=== PATIENT | female | born 1965 | race Caucasian/White ===

== ENCOUNTER 2016-11-06 10:04 | Observation (INO) | payer OTHER ==
[2016-11-03 11:06] VITALS: BMI 29.0
--- NOTE | 2016-11-03 12:02 | PAT Medication Instructions ---
Service Date Nov 03, 2016. Current Home Medication List Alprazolam (Xanax), 1 MG PO TID Aspirin (Aspirin Ec), 81 MG PO QAM Ciprofloxacin Tab (Cipro), 1,000 MG PO QAM Famotidine (Pepcid), 20 MG PO HS Insulin Glargine (Toujeo Solostar), 32 UNITS SC BID Insulin Lispro (Human) (Humalog), 1 DOSE SC ACHS Isosorbide Mononitrate (Imdur), 60 MG PO BID Levothyroxine Sodium (Synthroid), 112 MCG PO QAM Magnesium Citrate (Magnesium Citrate), 1 DOSE PO DAILY PRN for PRN Ondansetron Hcl (Zofran), 4-8 MG PO Q6H PRN for Nausea Oxycodone Hcl (Oxycodone Hcl), 1 TAB PO QID PRN for Pain Ranolazine (Ranexa), 1,000 MG PO BID Sennosides-Docusate Sodium (Stool Softener), 2 TAB PO HS PRN for Constipation Sulfa/Trimethoprim (Bactrim Ds 800MG/160MG), 1 TAB PO BID Medication Instructions For Your Scheduled Surgery - Hold the following medications the morning of surgery: Magnesium Citrate (Magnesium Citrate), 1 DOSE PO DAILY PRN for PRN Sulfa/Trimethoprim (Bactrim Ds 800MG/160MG), 1 TAB PO BID Ciprofloxacin Tab (Cipro), 1,000 MG PO QAM Insulin Lispro (Human) (Humalog), 1 DOSE SC ACHS - Take the following medications the morning of surgery with a sip of water: Ranolazine (Ranexa), 1,000 MG PO BID Oxycodone Hcl (Oxycodone Hcl), 1 TAB PO QID PRN for Pain (can take up to four hours prior to surgery if needed). Ondansetron Hcl (Zofran), 4-8 MG PO Q6H PRN for Nausea (only if needed) Levothyroxine Sodium (Synthroid), 112 MCG PO QAM Isosorbide Mononitrate (Imdur), 60 MG PO BID Aspirin (Aspirin Ec), 81 MG PO QAM Alprazolam (Xanax), 1 MG PO TID - Take the following medications as scheduled the night before surgery: Sennosides-Docusate Sodium (Stool Softener), 2 TAB PO HS PRN for Constipation Ranolazine (Ranexa), 1,000 MG PO BID Oxycodone Hcl (Oxycodone Hcl), 1 TAB PO QID PRN for Pain Sulfa/Trimethoprim (Bactrim Ds 800MG/160MG), 1 TAB PO BID Isosorbide Mononitrate (Imdur), 60 MG PO BID Insulin Lispro (Human) (Humalog), 1 DOSE SC ACHS Insulin Glargine (Toujeo Solostar), 32 UNITS SC BID Alprazolam (Xanax), 1 MG PO TID Famotidine (Pepcid), 20 MG PO HS - For Insulin Dependent Diabetic patients: Test blood sugar A.M. of surgery. - If blood sugar is greater than 150, take half of your Toujeo dose of: ( 16 units) - If blood sugar is less than 150, do not take any: Toujeo If you have any questions please call us at [phone] or [phone] ( [facility]) or [phone]
[2016-11-03 12:51] LABS: URINE APPEARANCE CLEAR (CLEAR); URINE BILIRUBIN NEG (NEG); URINE COLOR YELLOW; URINE NITRITE NEG (NEG); URINE PH 7.5 (4.5-7.5); URINE SPECIFIC GRAVITY 1.042 (1.000-1.030); UROBILINOGEN NEG (NEG)
[2016-11-03 12:55] LABS: MANUAL MICROSCOPIC REQUIRED? NO; REVIEW REQ? NO
[2016-11-03 13:08] LABS: INR 0.9 (0.9-1.1); PROTHROMBIN TIME (PATIENT) 10.1 SECONDS (9.0-12.0)
[2016-11-03 13:25] LABS: BUN/CREATININE RATIO 25.4 (10-20); CREATININE 0.67 mg/dl (0.60-1.20); POTASSIUM 4.1 mmol/L (3.5-5.1)
[2016-11-03 13:45] LABS: BETA-HYDROXYBUTYRATE 3.78 mg/dL (0.2-2.81)
[~2016-11-06] VITALS: Ht 172.7 cm; Wt 88.1 kg
[2016-11-06] VITALS (9 sets, daily range): BP systolic 115–149; BP diastolic 59–80; PULSE 68–83; TEMP 36.4–37.1; O2SAT 95–100; BMI 29.0; BMI 29.5
--- NOTE | 2016-11-06 00:14 | HISTORY & PHYSICAL EXAMINATION ---
DATE OF ADMISSION: 11/06/2016 SUBJECTIVE/CHIEF COMPLAINT: Left distal leg ulceration. HISTORY OF PRESENT ILLNESS: This is a patient who has a history of bilateral ddwdq-mzx-lolu amputations. She has been fitted for her prosthesis for bilateral lower extremities; however, on the left side, she started having an ulceration form and some dehiscence of the BKA flap. She is currently being set up for revision of the amputation and debridement of the ulcer. PAST MEDICAL HISTORY: Diabetes treated with insulin, hypertension, history of pulmonary embolism, history of sepsis, hypercholesterolemia, hypothyroidism, coronary artery disease with cardiac stents x3, peripheral artery disease, diabetic neuropathy and anxiety. CURRENT MEDICATIONS: Lantus, Coreg, aspirin, vitamin C, alprazolam, Plavix, Colace, Ranexa, Tirosint, Neurontin, Tricor, Dexilant, vitamin D, Zofran and Bactrim DS. ALLERGIES: SPIRONOLACTONE, VANCOMYCIN AND BUTORPHANOL. SOCIAL HISTORY: The patient denies alcohol and tobacco use. PAST SURGICAL HISTORY: Bilateral nbjgq-kkn-paft amputations, hysterectomy, cholecystectomy, small-bowel obstruction surgery, and coronary artery stents. FAMILY HISTORY: Noncontributory. OBJECTIVE/PHYSICAL EXAMINATION: GENERAL: The patient is alert and oriented x3. She is in no acute distress. She is a well-dressed, well-nourished 51-year-old female. Her affect is appropriate. CARDIOVASCULAR: Heart has a regular rhythm and rate without murmurs. LUNGS: Clear to auscultation bilateral. Cap refill is less than 2 seconds at lcwix-sqw-dheu amputation sites. LYMPHATIC: No evidence of any swollen lymph nodes. MUSCULOSKELETAL: The patient is weightbearing on bilateral lower extremities with oqkjx-utq-kdyu prosthesis. Upon inspection of the left zllcb-exw-ihcc amputation site, there is an ulceration noted at the surgical flap, there is mild erythema and mild drainage noted. NEUROLOGIC: Sensation normal and intact distally at myaqq-spn-atby amputation sites. ASSESSMENT/DIAGNOSIS: Ulceration of left cngpx-yxo-tpyx amputation flap. PLAN: Above assessment was discussed with the patient. At this time, it was recommended the patient undergo a left lower extremity revision of vhika-qtj-lgwa amputation with debridement of ulceration and application of platelet-rich plasma. All potential risks, benefits, complications, alternatives and rehab have been discussed with the patient. At this time, she wishes to proceed with the surgery as indicated and she will be scheduled for the surgery on 11/06/2016. SRINATH
[~2016-11-06 10:04] MED LIST: ALPR1TAB3 PO; ASPI81TA28 PO; BUPIVACAINE/EPINEPHRINE 0.25% 1:200,000 30 ML VIAL ONE; BUPIVACAINE/EPINEPHRINE 0.5% MPF 1:200,000 30 ML VIAL ONE; CEFAZOLIN 2000 MG/60 ML D5W IV SCH; CIPR1TAB11 PO; DEXAMETHASONE SOD INJ 4 MG/ML VIAL ONE; FAMO20TA11 PO; FENTANYL CITRATE INJ 50 MCG/1 ML 2 ML VIAL ONE; INSU1.2I SC; INSU100I SC; ISOS30TA13 PO; LACTATED RINGER'S 1000ML IV SCH; LEVO112T2 PO; MAGN1SOL7 PO; MIDAZOLAM HCL 1 MG/ML 2ML VIAL ONE; ONDA4TAB46 PO; OXYC-164 PO; RANO1000 PO; SCOPOLAMINE 1.5 MG TDSY TD SCH; SENNTAB23 PO; SULF800T23 PO
--- NOTE | 2016-11-06 11:32 | History & Physical Bridge Note ---
H&P Re-Evaluation Bridge Note: I have examined the patient, reviewed the History & Physical and in the interval since the performance of the History & Physical I have noted the following changes of clinical significance: No changes noted
[2016-11-06] MEDS ORDERED: CEFAZOLIN IV 2,000 MG/60 ML D5W IV ONE (11:36)
[2016-11-06] MEDS ORDERED: NovoLIN-R INSULIN PER UNIT CHARGE ONE (12:28)
[2016-11-06] MEDS ORDERED: ATROPINE SULFATE 0.1 MG/ML 5ML SYR IV PRN (13:00)
[2016-11-06] MEDS ORDERED: ONDANSETRON INJ 2 MG/ML 2 ML VIAL IV PRN (13:00)
[2016-11-06] MEDS ORDERED: FENTANYL CITRATE INJ 50 MCG/1 ML 2 ML VIAL IV PRN (13:00)
[2016-11-06] MEDS ORDERED: EpHEDrine SULFATE INJ 50 MG/ML AMP IV PRN (13:00)
[2016-11-06] MEDS ORDERED: ONDANSETRON INJ 2 MG/ML 2 ML VIAL ONE (13:10)
[2016-11-06] MEDS ORDERED: METOCLOPRAMIDE HCL INJ 5 MG/ML 2 ML VIAL ONE (13:10)
[2016-11-06] MEDS ORDERED: PROPOFOL IV EMULSION 10 MG/ML 20 ML VIAL IV ONE (13:10)
[2016-11-06] MEDS ORDERED: LIDOCAINE HCL 2% 2 ML VIAL (20MG/ML) ONE (13:10)
[2016-11-06] MEDS ORDERED: BACITRACIN 50,000 UNITS IR ONE (14:11)
[2016-11-06] MEDS ORDERED: CALCIUM CHLORIDE 10% XX ONE (14:12)
[2016-11-06] MEDS ORDERED: THROMBIN 5,000 UNITS (BOVINE) TOP ONE (14:13)
[2016-11-06] MEDS ORDERED: FENTANYL CITRATE INJ 50 MCG/1 ML 2 ML VIAL ONE (14:33)
--- NOTE | 2016-11-06 14:58 | [facility] Post Operative Brief Note ---
Immediate Operative Summary Operative Date Nov 06, 2016. Pre-Operative Diagnosis Ulceration of Left Mxbsr-yps-Hzrz Amputation Flap, Painful Left Below the Knee Amputation Post-Operative Diagnosis Ulceration of Left Qjtpz-csz-Cxlr Amputation Flap, Painful Left Below the Knee Amputation Procedure(s) Performed Left Tibia: Revision Left Below the Knee Amputation, Debridement Ulcer and Application of Plasma Rich Protein Surgeon Dr. Ramos Platform Supervisor Surgeon(s) JESSE Thakkar Estimated Blood Loss 20 ml Findings See dict Specimens Culture--Left leg Amputated Stump--sent for routine culture and sensitivity and anaerobes--sent to lab at 1340 Drains HV x 1 Anesthesia GLMA Complication(s) None Disposition Recovery Room / PACU
[2016-11-06] MEDS ORDERED: SOD PHOSPHATE/SOD BIPHOSPHATE ENEMA 132 ML BTL PR PRN (15:15)
[2016-11-06] MEDS ORDERED: ZOLPIDEM TARTRATE 5 MG TAB PO PRN (15:15)
[2016-11-06] MEDS ORDERED: DOCUSATE SODIUM/SENNA 50/8.6MG TAB PO PRN (15:15)
[2016-11-06] MEDS ORDERED: ONDANSETRON 4 MG TAB PO PRN (15:15)
[2016-11-06] MEDS ORDERED: MAGNESIUM HYDROXIDE SUSP 30 ML UDC PO PRN (15:15)
[2016-11-06] MEDS ORDERED: BISACODYL 10 MG SUPP PR PRN (15:15)
[2016-11-06] MEDS ORDERED: ALUMINUM/MAGNESIUM/SIMETH (MAALOX MAX) 30 ML UDC PO PRN (15:15)
--- NOTE | 2016-11-06 15:34 | OPERATIVE REPORT ---
DATE OF OPERATION: 11/06/2016 PREOPERATIVE DIAGNOSES: 1. Left below knee amputation, chronic ulceration. 2. Painful left below knee amputation with dehiscence. POSTOPERATIVE DIAGNOSIS: Same. PROCEDURE: 1. Revision below knee amputation, left lower extremity. 2. Debridement ulcer. 3. Application platelet rich plasma concentrate. SURGEON: Dr. Ramos. RETAIL PRESENTATION SPECIALIST: Dean Silva PA-C who was present for patient positioning, sterile prep and drape, management of retractors and instruments. He was present through the critical portions of the case including wound closure, application of sterile dressing and transport of the patient to recovery. ANESTHESIA: General LMA. SPECIMENS: Aerobic, anaerobic, Gram stain. DRAINS: Hemovac x1. COMPLICATIONS: None. BLOOD LOSS: 20 mL. PERTINENT HISTORY: This is a 51-year-old female who had prior left below knee amputation due to chronic osteomyelitis of the left foot. She had initially done well; however, after attempting to use her prosthesis developed an ulceration which did not resolve after a period of approximately 5 months. She attempted multiple conservative managements and failed all of them. The patient was then scheduled for revision below knee amputation. All potential risks, benefits, complications, alternatives, rehab, potential for incomplete relief of symptoms, need for further surgery, DVT, PE, , persistent pain, swelling, scarring, weakness, neurovascular injury, wound complications, need for further surgery discussed with the patient. The patient decided to proceed with the procedure as indicated. OPERATION AND FINDINGS: PROCEDURE: The patient was taken to the operative suite and placed supine on the operating table. I reviewed consent and identification of proper operative site. The patient was anesthetized, LMA was placed. Tourniquet was placed high on the left thigh over cast padding. Left lower extremity was then sterilely prepped and draped in usual fashion, elevated, and exsanguinated with an Esmarch bandage, elevated and the tourniquet was inflated to 300 mmHg. There was no exsanguination performed. Next, a 15 blade scalpel was used to make an incision site of previous incision. There was an elliptical area of ulceration distal tip of the below knee amputation, it was then excised entirely with a 15 blade scalpel. Full thickness skin flaps were developed proximally and distally. Next, the fascia was then incised anteriorly. The sutures which were placed previously were identified and then removed in their entirety. Next, the incision was then deepened to the level of the distal tibia. A small fluid collection in the distal aspect of the tibia. There was no obvious purulence, no foul odor, no other drainage. This was cultured, aerobic, anaerobic, Gram stain were sent for specimen. Next, the flap was then fully incised and mobilized followed by isolation of the distal tibia. Appropriate retractors were placed and then the distal tibia was then excised approximately additional 1 cm proximally and then the tip was then bevelled with a sagittal saw. Next, a rasp and rongeur used to smooth and contour the distal tibia. Next, the distal fibula was then exposed, carful retraction was applied around the fibula and the fibula was then resected level approximately 1 cm proximal to distal tip of the tibia. Next, all wounds were copiously irrigated with pulsatile lavage with bacitracin approximately 3 liters. Next, platelet rich plasma concentrate was derived from the patient's venous blood and spun in a centrifuge. After final lavage was completed, new top sheet and gloves were obtained and then bone tunnels x6 were drilled in distal aspect of the tibia with a 2.5 mm drill bit. Using a [employer] suture passer, the sutures were then shuttled through the bone to perform a Myotenodesis and to attach the flap to the distal aspect of the tibia to ensure appropriate soft tissue coverage over the stump. Next, the platelet rich plasma concentrate was injected around the soft tissues and the distal aspect of the tibia after bone wax was applied into the cut bony stump. Next, #2 Ultrabraid sutures were passed through the bone tunnels and into the flap to secure it followed by closure with buried suture knots. Next, a buried interrupted #1 Vicryl was used to close the fascia and the dermis was closed using buried interrupted 3-0 Vicryl, skin was closed using 3-0 nylon. A 10 [place]ian Hemovac drain was placed in the distal aspect of the wound exiting anterolaterally. Next, the sterile compressive dressing was applied overwrapped with an Gabe wrap. Tourniquet was released. The patient was awakened and taken to recovery in stable condition. I attest to the content of the Intraoperative Record and any orders documented therein. Any exceptions are noted below. SRINATH
--- NOTE | 2016-11-06 15:37 | Anesthesiology Progress Note ---
Anesthesia Post Op Note Date & Time Nov 06, 2016 at 15:36 Vital Signs Pain Intensity: 0 Vital Signs Past 12 Hours Date Time Temp Pulse Resp B/P Pulse Ox O2 Delivery O2 Flow Rate FiO2 11/06/16 15:25 80 20 121/67 100 Mask 10 11/06/16 15:15 82 16 128/72 100 Mask 10 11/06/16 15:06 36.7 87 16 140/76 100 Mask 10 Manual 11/06/16 11:05 36.9 79 20 149/80 95 Room Air Notes Mental Status: alert / awake / arousable, participated in evaluation Pt Amnestic to Procedure: Yes Nausea / Vomiting: adequately controlled Pain: adequately controlled Airway Patency, RR, SpO2: stable & adequate BP & HR: stable & adequate Hydration State: stable & adequate Anesthetic Complications: no major complications apparent Blocks working well in pacu
[2016-11-06] MEDS: CHECK SCOPOLAMINE PATCH PLACEMENT SCH (16:00)
[2016-11-06] MEDS ORDERED: IV FLUIDS COMPLETED PRN (16:45)
[2016-11-06] MEDS: KETOROLAC TROMETHAMINE 30 MG/ML VIAL IV. SCH (17:36)
[2016-11-06] MEDS: POTASSIUM CHLORIDE INJ 10 MEQ in SODIUM CHLORIDE 0.9% 1000ML 1,000 ML IV SCH (17:36)
--- NOTE | 2016-11-06 18:27 | Medical Consult ---
Consultation Date of Consultation: Nov 06, 2016. Attending Physician: Dom Ramos D.O. Reason for Consultation: Medical management History of Present Illness This is a 51 yo F with PMHx with DM , HT, previous PE, hyperlipidemia, hypothyroidism, CAD s/p cardiac stent x 3, peripheral artery disease, diabetic neuropathy and anxiety. She is s/p revision of Left BKA secondary to chronic ulceration and previous left below knee amputation with dehiscence. The patient was seen and examined at bedside, her is present in the room. Pt reports pain is well controlled currently. She states her nausea is worse right now, and that she did eat ~ 30% of her dinner because she thought this would improve nausea, but didn't. At home she uses zofran on a daily basis , and that she also has phenergan which works better than zofran, so is requesting it to be available. Past Medical/Surgical History 1. HTN 2. DM 3. Pulmonary embolism, resolved 4. Hyperlipidemia, 5. Hypothyroidism 6. CAD s/p cardiac stent x 3 7. PAD 8. Anxiety Family History Diabetes mellitus Social History Smoking Status: Never Smoker Drug Use: none Marital Status: Housing Status: lives with family Occupation Status: disabled Allergies Coded Allergies: Butorphanol (Verified Allergy, Severe, SHORTNESS OF BREATH, 11/06/16) Spironolactone (Verified Allergy, Mild, RASH, 11/06/16) Atorvastatin (Verified Allergy, Unknown, RASH, 11/06/16) Fenofibrate (Verified Allergy, Unknown, RASH, 11/06/16) Vancomycin (Verified Adverse Reaction, Mild, RASH-DEVYN SYNDROME, 11/06/16) red man syndrome Current Inpatient Medications Current Inpatient Medications Medications (Trade) Dose Ordered Sig/Ochoa Route Start Time Stop Time Status Last Admin Dose Admin Lactated Ringer's (Lr 1000ml) 1,000 ml @ 15 mls/hr Q24H IV 11/06/16 06:00 11/07/16 05:59 Miscellaneous (Remove Transderm-Scop Patch) 1 ea Q72H N/A 11/08/16 06:00 11/08/16 06:01 Miscellaneous Information (Check Scopolamine Patch Placement) 1 ea QS N/A 11/06/16 16:00 11/08/16 05:59 11/06/16 16:00 1 EA Fentanyl Citrate (Fentanyl Inj) 50 mcg Q5M PRN IV 11/06/16 13:00 11/06/16 18:00 Ondansetron HCl (Zofran Inj) 4 mg ONE PRN IV 11/06/16 13:00 11/06/16 18:00 Ephedrine Sulfate (EpHEDrine SULFATE INJ) 5 mg Q5M PRN IV 11/06/16 13:00 11/06/16 18:00 Atropine Sulfate (Atropine Sulfate 0.1MG/Ml Inj) 0.5 mg Q1M PRN IV 11/06/16 13:00 11/06/16 18:00 Alprazolam (Xanax Tab) 1 mg TID PO 11/06/16 21:00 12/06/16 20:59 Aspirin (Ecotrin Tab) 81 mg QAM PO 11/07/16 09:00 12/07/16 08:59 Ciprofloxacin (Cipro Tab) 500 mg BID PO 11/07/16 09:00 11/17/16 08:59 Famotidine (Pepcid Tab) 20 mg HS PO 11/06/16 21:00 12/06/16 20:59 Isosorbide Mononitrate (Imdur Ext Rel Tab) 60 mg BID PO 11/06/16 21:00 12/06/16 20:59 Levothyroxine Sodium (Synthroid Tab) 112 mcg DAILYBB PO 11/07/16 06:00 12/07/16 06:59 Ondansetron HCl (Zofran Tab) 8 mg Q6H PRN PO 11/06/16 15:15 12/06/16 15:14 Senna/Docusate Sodium (Senokot S Tab) 2 tab HS PRN PO 11/06/16 15:15 12/06/16 15:14 Trimethoprim/ Sulfamethoxazole (Septra Ds 800/ 160MG Tab) 1 tab BID PO 11/06/16 21:00 11/16/16 20:59 Insulin Glargine (Lantus Solostar Pen) 32 unit BID SC 11/07/16 09:00 12/07/16 08:59 Ranolazine 1000 mg 1,000 mg BID PO 11/06/16 21:00 12/06/16 20:59 Potassium Chloride/Sodium Chloride (KCl Inj/Nss 1000ml) 1,005 ml @ 100 mls/hr Q10H3M IV 11/06/16 17:30 12/06/16 17:29 Ketorolac Tromethamine (Toradol Inj) 30 mg Q6H IV. 11/06/16 18:00 11/07/16 17:59 Oxycodone HCl (Roxicodone Immediate Rel Tab) 1-2 TABS FOR PAIN 1 TABLET ... Q4H PRN PO 11/06/16 15:15 11/20/16 15:14 Morphine Sulfate (MoRPHine SULFATE INJ) 1 mg Q1HWA PRN IV 11/06/16 15:15 11/20/16 15:14 Acetaminophen (Tylenol Tab) 1,000 mg Q8H PO 11/06/16 22:00 12/06/16 21:59 Magnesium Hydroxide (Milk Of Magnesia Susp) 30 ml Q6H PRN PO 11/06/16 15:15 12/06/16 15:14 Bisacodyl (Dulcolax Supp) 10 mg DAILY PRN DE 11/06/16 15:15 12/06/16 15:14 Sodium Biphosphate/ Sodium Phosphate (Fleet Enema) 132 ml DAILY PRN DE 11/06/16 15:15 12/06/16 15:14 Senna (Senokot Tab) 17.2 mg HS PO 11/06/16 21:00 12/06/16 20:59 Docusate Sodium (coLACE CAP) 100 mg BID PO 11/06/16 21:00 12/06/16 20:59 Diphenhydramine HCl (Benadryl Cap) 25 mg Q8H PRN PO 11/06/16 15:15 12/06/16 15:14 Al Hydrox/Mg Hydrox/Simethicone (Maalox Max Susp) 15 ml Q4H PRN PO 11/06/16 15:15 12/06/16 15:14 Zolpidem Tartrate (Ambien Tab) 5 mg HSZ PRN PO 11/06/16 15:15 12/06/16 15:14 Multivitamins (Multivitamin Tab) 1 tab QAM PO 11/07/16 09:00 12/07/16 08:59 Ondansetron HCl (Zofran Inj) 4 mg Q6H PRN IV 1/6/17 15:15 12/06/16 15:14 Pantoprazole Sodium 40 mg 40 mg QAM PO 11/07/16 09:00 12/07/16 08:59 Cefazolin Sodium/ Dextrose (Ancef Iv/D5 50ml) 60 ml @ 100 mls/hr Q8H IV 11/06/16 20:00 11/07/16 04:35 Miscellaneous (Iv Fluids Completed) 1 ea PRN PRN N/A 11/06/16 16:45 11/06/17 16:44 Insulin Glargine (Lantus Solostar Pen) 25 unit 2200 SC 11/06/16 22:00 11/06/16 23:00 Review of Systems Constitutional: No chills, No fever, No sweats, No weight loss Eyes: No diplopia ENT: No hearing loss, No sore throat, No tinnitus Respiratory: No cough, No dyspnea on exertion, No shortness of breath, No sputum, No wheezing Cardiovascular: No chest pain, No palpitations Abdomen: + nausea, No constipation, No diarrhea, No pain, No vomiting Musculoskeletal: No joint pain, No muscle pain Neurologic: + problem reported (diabetic neuropathy on stumps) Psychiatric: No anxiety Integumentary: No itch, No rash Physical Exam Date Time Temp Pulse Resp B/P Pulse Ox O2 Delivery O2 Flow Rate FiO2 11/06/16 17:19 36.5 68 16 121/71 99 Nasal Cannula 2.0 11/06/16 16:17 99 Nasal Cannula 2.0 11/06/16 16:10 99 Nasal Cannula 2.0 11/06/16 16:05 99 Nasal Cannula 2.0 11/06/16 15:45 78 15 119/71 96 Nasal Cannula 2 11/06/16 15:35 36.0 78 19 114/67 96 Nasal Cannula 2 11/06/16 15:25 80 20 121/67 100 Mask 10 11/06/16 15:15 82 16 128/72 100 Mask 10 11/06/16 15:06 36.7 87 16 140/76 100 Mask 10 Manual 11/06/16 11:05 36.9 79 20 149/80 95 Room Air General Appearance: WD/WN, no apparent distress Head: normocephalic, atraumatic Eyes: PERRL, EOMI ENT: hearing grossly normal, pharynx normal Neck: no JVD Respiratory/Chest: lungs clear, normal breath sounds, no respiratory distress, no accessory muscle use, + pertinent finding (Mediport R upper chest wall) Cardiovascular: regular rate, rhythm, normal peripheral pulses Abdomen/GI: normal bowel sounds, non tender, soft, no organomegaly Extremities/Musculoskelatal: + pertinent finding (Bilateral below the knee amputations. Left stump wrapped in INDY, drain in place without any outs, dressing c/d/i. Ice pack in place. ) Neurologic/Psych: alert, normal mood/affect, oriented x 3 Skin: warm/dry, no rash Laboratory Results Last 24 Hours Test 11/06/16 10:52 11/06/16 15:11 11/06/16 16:49 Bedside Glucose 393 mg/dl 307 mg/dl 282 mg/dl Assessment & Plan This is a 51 yo F with PMHx with DM , HT, previous PE, hyperlipidemia, hypothyroidism, CAD s/p cardiac stent x 3, PAD, diabetic neuropathy and anxiety. She is s/p revision of Left BKA secondary to chronic ulceration and previous left below knee amputation with dehiscence. S/p revision of Left BKA secondary to chronic ulceration and previous left below knee amputation with dehiscence by Dr. Ramos - Pt hx of nonhealing ulcer with wound dehiscence of the Left BKA that was originally completed Sep 2015. Right BKA was completed Oct 2013. - Pain management and anticoagulation per primary team Anticoagulation: ASA 81 mg QAM Pain: oxycodone 5-10 mg Q4H prn, toradol 30 mg Q6H, MS 1 mg IV for breakthrough pain - Bowel regimen on board: senna and colace tabs, dulcolax, MOM prn, senokot prn - Will stop cipro, bactrim and ancef at this time: Would recommend increasing antibiotic coverage for pt with this history of diabetes to cover for pseudomonas with IV antibiotics daptomycin/zosyn considering the hx of PAD and less penetration into the tissue with oral antibiotics. 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 Pt takes Toujeo as outpatient. - Cont 32 U BID and extra 25 U at 2200 - ISS with Accuchecks ACHS - Diabetic diet - Zofran and phenergan prn Hypothyroidism - Cont levothyroxine 112 mcg Anxiety - Xanax 1 mg TID DVT ppx: asa 81 mg daily, teds CODE STATUS: Full code Assessment and Plan Attending Addendum: I have physically seen and examined this patient, have directed her care, and agree with the H&P noted above. DM II insulin requiring - Trujeo changed to Lantus per pharmacy. Left BKA revision - chronic infection, and has been on cipro and bactrim since July. Will change antibiotics from Ancef IV, cipro PO and bactrim PO to Daptomycin IV and Zosyn IV to cover resistant organisms until the culture and sensitivity results return. C-diff history - add probiotics while on IV antibiotics.
[2016-11-06] MEDS ORDERED: PIPERACILL/TAZOBAC IV 3.375 GM in DEXTROSE 5% 100ML IV ONE (19:00)
[2016-11-06] MEDS ORDERED: PIPERACILL/TAZOBAC CONSULT ACTIVE PRN (19:00)
[2016-11-06] MEDS: ONDANSETRON INJ 2 MG/ML 2 ML VIAL IV PRN (19:33)
[2016-11-06] MEDS ORDERED: CEFAZOLIN IV 2,000 MG in DEXTROSE 5% 50ML 50 ML IV SCH (20:00)
[2016-11-06] MEDS: DAPTOmycin IV 350 MG in SODIUM CHLORIDE 0.9% 50ML 50 ML IV SCH (20:32)
[2016-11-06] MEDS: DOCUSATE SODIUM 100 MG CAP PO SCH (20:37)
[2016-11-06] MEDS: FAMOTIDINE 20 MG TAB PO SCH (20:38)
[2016-11-06] MEDS: ISOSORBIDE MONONITRATE 60 MG TABCR PO SCH (20:38)
[2016-11-06] MEDS: RANOLAZINE 500 MG ER TAB PO SCH (20:39)
[2016-11-06] MEDS: SENNA 8.6 MG TAB PO SCH (20:40)
[2016-11-06] MEDS: ALPRAZOLAM 0.5 MG TAB PO SCH (20:45)
[2016-11-06] MEDS: MoRPHine SULFATE 2 MG/ML CARP IV PRN (20:46)
[2016-11-06] MEDS ORDERED: SULFAMETHOXAZOLE/TRIMETHOPRIM DS 800/160MG TAB PO SCH (21:00)
[2016-11-06] MEDS ORDERED: NovoLOG PER UNIT CHARGE SC ONE ×2 (21:45→22:00)
[2016-11-06] MEDS ORDERED: INSULIN GLARGINE SOLOSTAR 100 UNITS/ML 3 ML PEN SC SCH (22:00)
[2016-11-06] MEDS: ACETAMINOPHEN 500 MG TAB PO SCH (22:06)
[2016-11-07] MEDS: KETOROLAC TROMETHAMINE 30 MG/ML VIAL IV. SCH ×3 (00:01→12:42)
[2016-11-07] MEDS: CHECK SCOPOLAMINE PATCH PLACEMENT SCH ×4 (00:02→23:24)
[2016-11-07] MEDS: PROMETHAZINE HCL INJ 12.5 MG in SODIUM CHLORIDE 0.9% 50ML 50 ML IV PRN (00:43)
[2016-11-07] MEDS: PIPERACILL/TAZOBAC IV 3.375 GM in DEXTROSE 5% 100ML 100 ML IV SCH ×4 (02:00→18:05)
[2016-11-07] MEDS: OXYCODONE HCL IR 5 MG TAB (IMMEDIATE RELEASE) PO PRN ×3 (02:03→22:38)
[2016-11-07] MEDS: MoRPHine SULFATE 2 MG/ML CARP IV PRN ×2 (03:18→14:00)
[2016-11-07 03:19] VITALS: BP 135/75; PULSE 84; TEMP 36.5; O2SAT 98
[2016-11-07] MEDS ORDERED: INSULIN GLARGINE PER UNIT 20 UNITS in SYRINGE 0 ML SC STA (03:52)
[2016-11-07] MEDS ORDERED: INSULIN ASPART 100 UNITS/ML 3 ML PEN SC ONE (04:00)
[2016-11-07] MEDS ORDERED: INSULIN GLARGINE SOLOSTAR 100 UNITS/ML 3 ML PEN SC STA (04:02)
[2016-11-07] MEDS: POTASSIUM CHLORIDE INJ 10 MEQ in SODIUM CHLORIDE 0.9% 1000ML 1,000 ML IV SCH ×3 (04:23→23:36)
[2016-11-07] MEDS: LEVOTHYROXINE 112 MCG TAB PO SCH (06:01)
[2016-11-07] MEDS: ACETAMINOPHEN 500 MG TAB PO SCH ×3 (06:02→21:33)
[2016-11-07 06:14] LABS: HEMATOCRIT 34.1 % (37-47); MEAN CELL VOLUME 85.7 fL (80-100); MEAN CORPUSCULAR HEMOGLOBIN 28.9 pg (25-34); MEAN CORPUSCULAR HGB CONC 33.7 g/dl (32-36); MEAN PLATELET VOLUME 9.6 fL (7.4-10.4); PLATELET COUNT 211 K/uL (130-400); RED BLOOD COUNT 3.98 M/uL (4.2-5.4); WHITE BLOOD COUNT 9.57 K/uL (4.8-10.8)
[2016-11-07 06:50] LABS: BUN/CREATININE RATIO 15.9 (10-20); CALCIUM 8.6 mg/dl (8.5-10.1); CREATININE 0.93 mg/dl (0.60-1.20)
[2016-11-07 07:04] LABS: BETA-HYDROXYBUTYRATE 1.2 mg/dL (0.2-2.81)
[2016-11-07] MEDS ORDERED: INSULIN IV INFUSION PROTOCOL STA (07:04)
[2016-11-07] MEDS ORDERED: HHS GOAL RANGE 250-350 mg/dl ONE (07:15)
[2016-11-07 07:43] VITALS: BP 123/76; PULSE 76; TEMP 36.8; O2SAT 96
[2016-11-07] MEDS ORDERED: GLUCOSE 10 TABS/TUBE PO PRN (08:00)
[2016-11-07] MEDS ORDERED: DEXTROSE 50% 50 ML SYR IV PRN (08:00)
[2016-11-07] MEDS ORDERED: INSULIN HUMAN REGULAR IV BOLUS 3.5 UNIT in SYRINGE 0 ML IV SCH (08:00)
[2016-11-07] MEDS ORDERED: GLUCAGON FOR INJ 1 MG VIAL SQ PRN (08:00)
[2016-11-07] MEDS ORDERED: GLUCOSE 40% GEL 15 GM TUBE PO PRN (08:00)
[2016-11-07] MEDS: INSULIN REGULAR 250 UNITS in SODIUM CHLORIDE 0.9% 250ML 250 ML IV SCH ×9 (08:16→23:22)
[2016-11-07 08:33] VITALS: O2SAT 96
--- NOTE | 2016-11-07 08:53 | Orthopedic Progress Note ---
Orthopedic Progress Note Date of Service Nov 07, 2016. Subjective Post OP Day: 1 Reports: feeling well, nausea / vomiting (improved with scopalamine patch), pain controlled w PO medications, Denies: SOB, chest pain, complaints, light headedness Objective dressing C/D/I, hemovac drainage (minimal) Date Time Temp Pulse Resp B/P Pulse Ox O2 Delivery O2 Flow Rate FiO2 11/07/16 08:33 96 Room Air 11/07/16 07:43 36.8 76 18 123/76 96 Room Air 11/07/16 03:19 36.5 84 14 135/75 98 Room Air 11/07/16 00:00 Room Air 11/06/16 23:36 37.1 83 16 115/59 95 Room Air 11/06/16 19:40 Room Air 11/06/16 19:20 37.0 75 16 147/76 97 Room Air 11/06/16 18:12 36.8 73 16 128/73 98 Nasal Cannula 2.0 11/06/16 17:19 36.5 68 16 121/71 99 Nasal Cannula 2.0 11/06/16 16:35 36.4 76 20 124/69 100 Nasal Cannula 2.0 11/06/16 16:17 99 Nasal Cannula 2.0 11/06/16 16:10 99 Nasal Cannula 2.0 11/06/16 16:05 99 Nasal Cannula 2.0 11/06/16 16:05 36.4 77 18 119/68 99 Nasal Cannula 2.0 11/06/16 15:45 78 15 119/71 96 Nasal Cannula 2 11/06/16 15:35 36.0 78 19 114/67 96 Nasal Cannula 2 11/06/16 15:25 80 20 121/67 100 Mask 10 11/06/16 15:15 82 16 128/72 100 Mask 10 11/06/16 15:06 36.7 87 16 140/76 100 Mask 10 Manual 11/06/16 11:05 36.9 79 20 149/80 95 Room Air Laboratory Results 24 Hours: Test 11/07/16 05:08 Hematocrit 34.1 % Hemoglobin 11.5 g/dL Assessment & Plan Assessment: POD #1 s/p Left Tibia: Revision Left Below the Knee Amputation, Debridement Ulcer and Application of Plasma Rich Protein - will leave dressing on until tomorrow AM, minimal HV drainage, I pulled this am. await OR cultures; -pending findings, likely d/c on PO Abx when stable;
[2016-11-07] MEDS ORDERED: CIPROFLOXACIN 500 MG TAB PO SCH (09:00)
[2016-11-07] MEDS ORDERED: INSULIN ASPART 100 UNITS/ML 3 ML PEN SC SCH (09:00)
[2016-11-07] MEDS: DOCUSATE SODIUM 100 MG CAP PO SCH ×2 (09:13→21:29)
[2016-11-07] MEDS: ISOSORBIDE MONONITRATE 60 MG TABCR PO SCH ×2 (09:13→21:30)
[2016-11-07] MEDS: RANOLAZINE 500 MG ER TAB PO SCH ×2 (09:15→21:32)
[2016-11-07] MEDS: ASPIRIN 81 MG ECTAB PO SCH (09:15)
[2016-11-07] MEDS: PANTOprazole SOD 40 MG TAB PO SCH (09:15)
[2016-11-07] MEDS: MULTIVITAMIN TAB PO SCH (09:16)
[2016-11-07] MEDS: LACTOBACILLUS ACIDOPHILUS (FLORANEX) TAB PO SCH ×4 (09:16→18:05)
[2016-11-07] MEDS: ALPRAZOLAM 0.5 MG TAB PO SCH ×3 (09:28→21:30)
[2016-11-07] MEDS: INSULIN ASPART 100 UNITS/ML 3 ML PEN SC SCH ×4 (09:45→21:33)
[2016-11-07] MEDS: ONDANSETRON INJ 2 MG/ML 2 ML VIAL IV PRN (10:47)
[2016-11-07 11:20] VITALS: BP 124/73; PULSE 75; TEMP 37; O2SAT 98
--- NOTE | 2016-11-07 12:28 | Hospitalist Progress Note ---
Hospitalist Progress Note Date of Service Nov 07, 2016. Subjective Pt evaluation today including: conversation w/ patient, physical exam, chart review, lab review, review of studies, review of inpatient medication list PO Intake: Taisha po Voiding: no voiding problems Reviewed pt's extensive PMH wit her in depth today. Glucose very high and started on insulin gtt this AM by orthotic/prosthetic clinician. Glucose most recently in lower 200s, improving. Pt states this is her norm, she has been to numerous large tertiary and speciality clinics fo rher DM type 1.5 over the years and evaluated for pancreas transplant, etc. and has always had issues. 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 Otherwise no chest pain, has some mild nausea but also has gastroparesis. Doing well otherwise Constitutional: No fever Respiratory: No shortness of breath Cardiovascular: No chest pain Abdomen: + nausea, No pain All Other Systems: Reviewed and Negative Objective Vital Signs Date Time Temp Pulse Resp B/P Pulse Ox O2 Delivery O2 Flow Rate FiO2 11/07/16 11:20 37.0 75 18 124/73 98 Room Air 11/07/16 08:42 Room Air 11/07/16 08:33 96 Room Air 11/07/16 07:43 36.8 76 18 123/76 96 Room Air 11/07/16 03:19 36.5 84 14 135/75 98 Room Air 11/07/16 00:00 Room Air 11/06/16 23:36 37.1 83 16 115/59 95 Room Air 11/06/16 19:40 Room Air 11/06/16 19:20 37.0 75 16 147/76 97 Room Air 11/06/16 18:12 36.8 73 16 128/73 98 Nasal Cannula 2.0 11/06/16 17:19 36.5 68 16 121/71 99 Nasal Cannula 2.0 11/06/16 16:35 36.4 76 20 124/69 100 Nasal Cannula 2.0 11/06/16 16:17 99 Nasal Cannula 2.0 11/06/16 16:10 99 Nasal Cannula 2.0 11/06/16 16:05 99 Nasal Cannula 2.0 11/06/16 16:05 36.4 77 18 119/68 99 Nasal Cannula 2.0 11/06/16 15:45 78 15 119/71 96 Nasal Cannula 2 11/06/16 15:35 36.0 78 19 114/67 96 Nasal Cannula 2 11/06/16 15:25 80 20 121/67 100 Mask 10 11/06/16 15:15 82 16 128/72 100 Mask 10 11/06/16 15:06 36.7 87 16 140/76 100 Mask 10 Manual Physical Exam General Appearance: WD/WN, no apparent distress Eyes: normal inspection, sclerae normal Neck: trachea midline Respiratory/Chest: lungs clear, normal breath sounds, no respiratory distress, no accessory muscle use Cardiovascular: regular rate, rhythm, no edema, no gallop, no murmur Abdomen: normal bowel sounds, non tender, soft Extremities: + pertinent finding (bilat BKAs, left with dressing in place not removed) Neurologic/Psychiatric: alert, normal mood/affect, oriented x 3 Skin: normal color, warm/dry, no rash Laboratory Results Last 24 Hours Test 11/06/16 15:11 11/06/16 16:49 11/06/16 20:36 11/07/16 02:54 Bedside Glucose 307 mg/dl 282 mg/dl 349 mg/dl 465 mg/dl Test 11/07/16 05:08 White Blood Count 9.57 K/uL Red Blood Count 3.98 M/uL Hemoglobin 11.5 g/dL Hematocrit 34.1 % Mean Corpuscular Volume 85.7 fL Mean Corpuscular Hemoglobin 28.9 pg Mean Corpuscular Hemoglobin Concent 33.7 g/dl RDW Standard Deviation 41.2 fL RDW Coefficient of Variation 13.1 % Platelet Count 211 K/uL Mean Platelet Volume 9.6 fL Sodium Level 136 mmol/L Potassium Level 4.0 mmol/L Chloride Level 102 mmol/L Carbon Dioxide Level 21 mmol/L Anion Gap 13.0 mmol/L Blood Urea Nitrogen 15 mg/dl Creatinine 0.93 mg/dl Est Creatinine Clear Calc Drug Dose 85.0 ml/min Estimated GFR () 83.6 Estimated GFR (Non- 72.2 BUN/Creatinine Ratio 15.9 Random Glucose 445 mg/dl Calcium Level 8.6 mg/dl Beta-Hydroxybutyric Acid 1.20 mg/dL Assessment and Plan This is a 51 yo F with PMHx with DM type 1.5 with severe insulin resistance, gastroparesis, GERD, morbid obesity but since lost 120 lbs, HTN, previous PE, hyperlipidemia, hypothyroidism, CAD s/p cardiac stent x 3 with chronic stable angina, PAD, diabetic neuropathy and anxiety. She is s/p revision of Left BKA secondary to chronic ulceration and previous left below knee amputation with dehiscence. S/p revision of Left BKA secondary to chronic ulceration/infection now debrided and previous left below knee amputation with dehiscence by Dr. Ramos - has been on cipro and bactrim since July - changed antibiotics from Ancef IV, cipro PO and bactrim PO to Daptomycin IV and Zosyn IV to cover resistant organisms until the culture and sensitivity results return. - Pt hx of nonhealing ulcer with wound dehiscence of the Left BKA that was originally completed Sep 2015. Right BKA was completed Oct 2013. - Pain management and anticoagulation per primary team Anticoagulation: none right now--> will d/w Ortho if ok to start heparin SQ this evening after 24 hr post-op Pain: oxycodone 5-10 mg Q4H prn, toradol 30 mg Q6H, MS 1 mg IV for breakthrough pain - Bowel regimen on board: senna and colace tabs, dulcolax, MOM prn, senokot prn -follow wound cx HTN, CAD s/p stenting x 3, PAD, Chronic angina-no symptoms, doing well post-op. Rand Butter is Dr. Peralta - Cont Imdur 60 mg BID, ASA 81mg daily - Cont Ranexa 1000 mg BID for chronic angina Hyperlipidemia - Cont statin DM I.5 with diabetic neuropathy and subsequent diabetic gastroparesis, severe insulin resistance, diabetic wounds s/p bilat BKAs- Pt takes [facility] as outpatient. Last HgbA1C 15% in Oct 2016 up from 11% previously due to infection/ stress - Cont Lantus 32 U BID and insulin gtt, recalculate total daily dose tomorrow- appreciate Pharmacy help - ISS with Accuchecks ACHS - Diabetic diet - Zofran and phenergan prn gastroparesis, GERD -continue pepcid and does take Dexilant at home -continue protonix Hypothyroidism - Cont levothyroxine 112 mcg Anxiety - Xanax 1 mg TID DVT ppx: start heparin today if ok with Ortho given h/o PE CODE STATUS: Full code I C-diff history - add probiotics while on IV antibiotics.
[2016-11-07 15:17] VITALS: BP 107/65; PULSE 69; TEMP 36.6; O2SAT 95
[2016-11-07] MEDS: DAPTOmycin IV 350 MG in SODIUM CHLORIDE 0.9% 50ML 50 ML IV SCH (19:22)
[2016-11-07] MEDS: SENNA 8.6 MG TAB PO SCH (21:31)
[2016-11-07] MEDS: FAMOTIDINE 20 MG TAB PO SCH (21:31)
[2016-11-07] MEDS: HEPARIN SOD 5000 UNIT/0.5 ML CARP SQ SCH (21:32)
[2016-11-07 22:57] VITALS: BP 110/64; PULSE 71; TEMP 36.6; O2SAT 97
[2016-11-08] MEDS: INSULIN REGULAR 250 UNITS in SODIUM CHLORIDE 0.9% 250ML 250 ML IV SCH ×7 (00:10→09:59)
[2016-11-08] MEDS: MoRPHine SULFATE 2 MG/ML CARP IV PRN ×6 (00:12→23:57)
[2016-11-08] MEDS: PROMETHAZINE HCL INJ 12.5 MG in SODIUM CHLORIDE 0.9% 50ML 50 ML IV PRN (01:28)
[2016-11-08] MEDS: PIPERACILL/TAZOBAC IV 3.375 GM in DEXTROSE 5% 100ML 100 ML IV SCH ×2 (02:08→09:50)
[2016-11-08] MEDS: OXYCODONE HCL IR 5 MG TAB (IMMEDIATE RELEASE) PO PRN ×3 (04:11→19:08)
[2016-11-08] MEDS: HEPARIN SOD 5000 UNIT/0.5 ML CARP SQ SCH ×3 (05:23→21:25)
[2016-11-08] MEDS: ACETAMINOPHEN 500 MG TAB PO SCH ×3 (05:24→22:18)
[2016-11-08] MEDS: LEVOTHYROXINE 112 MCG TAB PO SCH (05:24)
--- NOTE | 2016-11-08 06:53 | Orthopedic Progress Note ---
Orthopedic Progress Note Date of Service Nov 08, 2016. Subjective Post OP Day: 2 Reports: feeling well, pain controlled w PO medications, Denies: SOB, chest pain , complaints, light headedness, nausea / vomiting Objective dressing C/D/I, incision C/D/I, A&O x3 dressing changed last evening, dressing CD&I. minimal bloody drainage noted. thigh non tender Date Time Temp Pulse Resp B/P Pulse Ox O2 Delivery O2 Flow Rate FiO2 11/07/16 22:57 36.6 71 14 110/64 97 Room Air 11/07/16 19:15 Room Air 11/07/16 15:17 36.6 69 16 107/65 95 Room Air 11/07/16 15:10 Room Air 11/07/16 11:20 37.0 75 18 124/73 98 Room Air 11/07/16 08:42 Room Air 11/07/16 08:33 96 Room Air 11/07/16 07:43 36.8 76 18 123/76 96 Room Air Laboratory Results 24 Hours: Test 11/08/16 04:44 Assessment & Plan Assessment: POD #2 s/p Left Tibia: Revision Left Below the Knee Amputation, Debridement Ulcer and Application of Plasma Rich Protein - Dressing changed last evening, Hevovac pulled yesterday -pending findings, likely d/c on PO Abx when stable; currently on IV Dapto and Zosyn. Anticoagulation- has h/o of PE, restarted Heparin SQ last evening. Pain Management- currently pain well controlled w/ current regimen DM I.5 with diabetic neuropathy and subsequent diabetic gastroparesis, severe insulin resistance, diabetic wounds s/p bilat BKAs- Pt takes Toujeo as outpatient. Last HgbA1C 15% in Oct 2016 up from 11% previously due to infection/ stress - Cont Lantus 32 U BID and insulin gtt, recalculate total daily dose tomorrow- appreciate Pharmacy help - ISS with Accuchecks ACHS - Diabetic diet - Zofran and phenergan prn
[2016-11-08 07:12] LABS: HEMATOCRIT 30.6 % (37-47); MEAN CELL VOLUME 86.9 fL (80-100); MEAN CORPUSCULAR HGB CONC 33.3 g/dl (32-36); MEAN PLATELET VOLUME 9.2 fL (7.4-10.4); PLATELET COUNT 193 K/uL (130-400); RED BLOOD COUNT 3.52 M/uL (4.2-5.4); WHITE BLOOD COUNT 9.16 K/uL (4.8-10.8)
[2016-11-08 07:43] VITALS: BP 112/65; PULSE 69; TEMP 36.8; O2SAT 96
[2016-11-08 07:47] LABS: BUN/CREATININE RATIO 16.8 (10-20); CALCIUM 7.9 mg/dl (8.5-10.1); CREATININE 0.72 mg/dl (0.60-1.20); POTASSIUM 3.5 mmol/L (3.5-5.1)
[2016-11-08] MEDS: DOCUSATE SODIUM 100 MG CAP PO SCH ×2 (09:00→20:48)
[2016-11-08] MEDS: INSULIN GLARGINE SOLOSTAR 100 UNITS/ML 3 ML PEN SC SCH ×2 (09:16→21:26)
[2016-11-08] MEDS: INSULIN ASPART 100 UNITS/ML 3 ML PEN SC SCH ×4 (09:16→21:26)
[2016-11-08] MEDS: ASPIRIN 81 MG ECTAB PO SCH (09:18)
[2016-11-08] MEDS: PANTOprazole SOD 40 MG TAB PO SCH (09:18)
[2016-11-08] MEDS: ISOSORBIDE MONONITRATE 60 MG TABCR PO SCH ×2 (09:18→20:48)
[2016-11-08] MEDS: LACTOBACILLUS ACIDOPHILUS (FLORANEX) TAB PO SCH ×3 (09:18→18:02)
[2016-11-08] MEDS: RANOLAZINE 500 MG ER TAB PO SCH ×2 (09:18→20:49)
[2016-11-08] MEDS: MULTIVITAMIN TAB PO SCH (09:18)
[2016-11-08] MEDS: ALPRAZOLAM 0.5 MG TAB PO SCH ×3 (09:22→21:01)
[2016-11-08] MEDS: POTASSIUM CHLORIDE INJ 10 MEQ in SODIUM CHLORIDE 0.9% 1000ML 1,000 ML IV SCH (09:51)
[2016-11-08] MEDS ORDERED: ROSUVASTATIN CALCIUM 20 MG TAB PO ONE (10:22)
--- NOTE | 2016-11-08 10:24 | Hospitalist Progress Note ---
Hospitalist Progress Note Date of Service Nov 08, 2016. Subjective Pt evaluation today including: conversation w/ patient, physical exam, chart review, lab review, review of studies, review of inpatient medication list PO Intake: shane po Voiding: no voiding problems Pt doing well, some throbbing pain in left stump. Glucose much better controlled now after restarting Lantus this AM which had evidently been held by pharmacy with starting insulin gtt so I was unaware it had not been given yesterday evening. On insulin gtt through the night. Glucose check while I was in the room was 161. Mild nausea but no CP, no SOB. Constitutional: No fever Respiratory: No shortness of breath Cardiovascular: No chest pain Abdomen: + constipation (chronic, last BM 3 days ago), + nausea, No pain Musculoskeletal: + problem reported (left BKA stump pain) Skin: No rash All Other Systems: Reviewed and Negative Objective Vital Signs Date Time Temp Pulse Resp B/P Pulse Ox O2 Delivery O2 Flow Rate FiO2 11/08/16 08:19 Room Air 11/08/16 07:43 36.8 69 16 112/65 96 Room Air 11/07/16 22:57 36.6 71 14 110/64 97 Room Air 11/07/16 19:15 Room Air 11/07/16 15:17 36.6 69 16 107/65 95 Room Air 11/07/16 15:10 Room Air 11/07/16 11:20 37.0 75 18 124/73 98 Room Air Physical Exam General Appearance: WD/WN, no apparent distress Eyes: normal inspection, sclerae normal Neck: trachea midline Respiratory/Chest: lungs clear, normal breath sounds, no respiratory distress, no accessory muscle use Cardiovascular: regular rate, rhythm, no edema, no gallop, no murmur Abdomen: normal bowel sounds, non tender, soft, no organomegaly, no pulsatile mass Extremities: + pertinent finding (left BKA stump with dressing in place and not removed, right BKA stump with well healed incisional scar) Neurologic/Psychiatric: no motor/sensory deficits, alert, normal mood/affect, oriented x 3 Skin: normal color, warm/dry, no rash Laboratory Results Last 24 Hours Test 11/07/16 10:36 11/07/16 12:16 11/07/16 13:40 11/07/16 14:53 Bedside Glucose 216 mg/dl 215 mg/dl 263 mg/dl 254 mg/dl Test 11/07/16 16:00 11/07/16 16:57 11/07/16 18:02 11/07/16 18:59 Bedside Glucose 252 mg/dl 238 mg/dl 269 mg/dl 293 mg/dl Test 11/07/16 20:02 11/07/16 21:05 11/07/16 22:00 11/07/16 23:17 Bedside Glucose 254 mg/dl 224 mg/dl 200 mg/dl 275 mg/dl Test 11/08/16 00:01 11/08/16 01:05 11/08/16 02:04 11/08/16 03:03 Bedside Glucose 293 mg/dl 305 mg/dl 362 mg/dl 326 mg/dl Test 11/08/16 04:02 11/08/16 05:07 11/08/16 06:04 11/08/16 06:19 Bedside Glucose 315 mg/dl 272 mg/dl 262 mg/dl White Blood Count 9.16 K/uL Red Blood Count 3.52 M/uL Hemoglobin 10.2 g/dL Hematocrit 30.6 % Mean Corpuscular Volume 86.9 fL Mean Corpuscular Hemoglobin 29.0 pg Mean Corpuscular Hemoglobin Concent 33.3 g/dl RDW Standard Deviation 43.1 fL RDW Coefficient of Variation 13.6 % Platelet Count 193 K/uL Mean Platelet Volume 9.2 fL Sodium Level 140 mmol/L Potassium Level 3.5 mmol/L Chloride Level 108 mmol/L Carbon Dioxide Level 23 mmol/L Anion Gap 9.0 mmol/L Blood Urea Nitrogen 12 mg/dl Creatinine 0.72 mg/dl Est Creatinine Clear Calc Drug Dose 109.8 ml/min Estimated GFR () 114.0 Estimated GFR (Non- 98.3 BUN/Creatinine Ratio 16.8 Random Glucose 253 mg/dl Calcium Level 7.9 mg/dl Test 11/08/16 07:09 11/08/16 07:59 11/08/16 09:04 11/08/16 09:57 Bedside Glucose 206 mg/dl 204 mg/dl 154 mg/dl 161 mg/dl Assessment and Plan This is a 51 yo F with PMHx with DM type 1.5 with severe insulin resistance, gastroparesis, GERD, morbid obesity but since lost 120 lbs, HTN, previous PE, hyperlipidemia, hypothyroidism, CAD s/p cardiac stent x 3 with chronic stable angina, PAD, diabetic neuropathy and anxiety. She is s/p revision of Left BKA secondary to chronic ulceration and previous left below knee amputation with dehiscence. Pt hx of nonhealing ulcer with wound dehiscence of the Left BKA that was originally completed Sep 2015. Right BKA was completed Oct 2013. On admission, changed antibiotics from Ancef IV, cipro PO and bactrim PO to Daptomycin IV and Zosyn IV to cover resistant organisms until the culture and sensitivity results return Now growing MSSA on wound culture today S/p revision of Left BKA secondary to chronic ulceration/infection now debrided and previous left below knee amputation with dehiscence by Dr. Ramos - has been on cipro and bactrim since July - d/c Zosyn, continue Dapto for now and then likely transition back to Bactrim ( dopes have previous h/o MRSA) or keflex upon discharge, was followed by Wound clinic and should continue after discharge - Pain management and anticoagulation per primary team Anticoagulation: heparin SQ Pain: oxycodone 5-10 mg Q4H prn, toradol 30 mg Q6H, MS 1 mg IV for breakthrough pain - Bowel regimen on board: senna and colace tabs, dulcolax, MOM prn, senokot prn -plan d/c tomorrow? HTN, CAD s/p stenting x 3, PAD, Chronic angina-no symptoms, doing well post-op. Truant Officer is Dr. Peralta - Cont Imdur 60 mg BID, ASA 81mg daily, Crestor (is on this at home but is not on her home med list) - Cont Ranexa 1000 mg BID for chronic angina Hyperlipidemia - continue Crestor DM I.5 with diabetic neuropathy and subsequent diabetic gastroparesis, severe insulin resistance, diabetic wounds s/p bilat BKAs- Pt takes Toujeo as outpatient. Last HgbA1C 15% in Oct 2016 up from 11% previously due to infection/ stress. Much improved today. - Cont Lantus 32 U BID and stop insulin gtt - ISS with aggressive carb counting 1 unit/4 grams carbs and correction factor 15 with Accuchecks ACHS - Diabetic diet - Zofran and phenergan prn gastroparesis, GERD -continue pepcid and does take Dexilant at home -continue protonix Hypothyroidism - Cont levothyroxine 112 mcg Anxiety - Xanax 1 mg TID DVT ppx: heparin SQ CODE STATUS: Full code Dispo-to home tomorrow? I C-diff history - add probiotics while on IV antibiotics.
[2016-11-08] MEDS ORDERED: POTASSIUM CHLORIDE 20 MEQ TABCR PO ONE (10:30)
[2016-11-08] MEDS: ONDANSETRON INJ 2 MG/ML 2 ML VIAL IV PRN ×2 (11:36→22:18)
[2016-11-08 15:29] VITALS: BP 113/67; PULSE 71; TEMP 36.9; O2SAT 97
[2016-11-08] MEDS: DAPTOmycin IV 350 MG in SODIUM CHLORIDE 0.9% 50ML 50 ML IV SCH (20:43)
[2016-11-08] MEDS: SENNA 8.6 MG TAB PO SCH (20:47)
[2016-11-08] MEDS: FAMOTIDINE 20 MG TAB PO SCH (20:48)
[2016-11-08 23:30] VITALS: BP 136/76; PULSE 76; TEMP 36.7; O2SAT 97
[2016-11-09] MEDS: OXYCODONE HCL IR 5 MG TAB (IMMEDIATE RELEASE) PO PRN ×5 (03:16→20:28)
[2016-11-09] MEDS: LEVOTHYROXINE 112 MCG TAB PO SCH (06:11)
[2016-11-09] MEDS: ACETAMINOPHEN 500 MG TAB PO SCH ×3 (06:11→21:46)
[2016-11-09] MEDS: HEPARIN SOD 5000 UNIT/0.5 ML CARP SQ SCH ×3 (06:15→21:54)
[2016-11-09] MEDS: MoRPHine SULFATE 2 MG/ML CARP IV PRN ×2 (06:15→23:32)
[2016-11-09 06:19] LABS: HEMATOCRIT 33.3 % (37-47); MEAN CELL VOLUME 88.1 fL (80-100); MEAN CORPUSCULAR HEMOGLOBIN 28.3 pg (25-34); MEAN CORPUSCULAR HGB CONC 32.1 g/dl (32-36); MEAN PLATELET VOLUME 9.2 fL (7.4-10.4); PLATELET COUNT 193 K/uL (130-400); RED BLOOD COUNT 3.78 M/uL (4.2-5.4); WHITE BLOOD COUNT 7.13 K/uL (4.8-10.8)
[2016-11-09 06:51] LABS: CREATININE 0.62 mg/dl (0.60-1.20); MAGNESIUM 1.9 mg/dl (1.8-2.4); POTASSIUM 3.5 mmol/L (3.5-5.1)
[2016-11-09 07:00] VITALS: BP 126/73; TEMP 36.8; O2SAT 97
[2016-11-09 07:36] VITALS: BP 121/68; PULSE 80; TEMP 36.7; O2SAT 95
[2016-11-09 07:50] VITALS: O2SAT 95
--- NOTE | 2016-11-09 08:04 | Anesthesiology Progress Note ---
Anesthesia Post Op Note Date & Time Nov 09, 2016 at 08:03 Vital Signs Vital Signs Past 12 Hours Date Time Temp Pulse Resp B/P Pulse Ox O2 Delivery O2 Flow Rate FiO2 11/09/16 07:50 95 Room Air 11/09/16 07:36 36.7 80 18 121/68 95 Room Air 11/09/16 07:36 Room Air 11/08/16 23:55 Room Air 11/08/16 23:30 36.7 76 18 136/76 97 Room Air Notes Mental Status: alert / awake / arousable, participated in evaluation Pt Amnestic to Procedure: Yes Nausea / Vomiting: adequately controlled Pain: adequately controlled Airway Patency, RR, SpO2: stable & adequate BP & HR: stable & adequate Hydration State: stable & adequate Anesthetic Complications: no major complications apparent
[2016-11-09] MEDS: ALPRAZOLAM 0.5 MG TAB PO SCH ×3 (08:26→21:45)
[2016-11-09] MEDS: ISOSORBIDE MONONITRATE 60 MG TABCR PO SCH ×2 (08:27→20:27)
[2016-11-09] MEDS: LACTOBACILLUS ACIDOPHILUS (FLORANEX) TAB PO SCH ×3 (08:27→17:45)
[2016-11-09] MEDS: DOCUSATE SODIUM 100 MG CAP PO SCH ×2 (08:28→20:25)
[2016-11-09] MEDS: ASPIRIN 81 MG ECTAB PO SCH (08:28)
[2016-11-09] MEDS: MULTIVITAMIN TAB PO SCH (08:28)
[2016-11-09] MEDS: ROSUVASTATIN CALCIUM 20 MG TAB PO SCH (08:28)
[2016-11-09] MEDS: PANTOprazole SOD 40 MG TAB PO SCH (08:28)
[2016-11-09] MEDS: RANOLAZINE 500 MG ER TAB PO SCH ×2 (08:29→20:26)
[2016-11-09] MEDS: INSULIN GLARGINE SOLOSTAR 100 UNITS/ML 3 ML PEN SC SCH ×2 (08:37→21:53)
[2016-11-09] MEDS: INSULIN ASPART 100 UNITS/ML 3 ML PEN SC SCH ×4 (08:37→21:53)
[2016-11-09 12:00] VITALS: Ht 172.7 cm; Wt 88.1 kg
--- NOTE | 2016-11-09 12:42 | Orthopedic Progress Note ---
Orthopedic Progress Note Date of Service Nov 09, 2016. Subjective Post OP Day: 3 Reports: feeling well, pain controlled w PO medications, Denies: complaints Additional Notes: States blood sugars are much better today than they have been over the weekend. Discussed possible d/c tomorrow with medicine. Objective capillary refill less than 2 sec., dressing C/D/I, A&O x3 Date Time Temp Pulse Resp B/P Pulse Ox O2 Delivery O2 Flow Rate FiO2 11/09/16 07:50 95 Room Air 11/09/16 07:36 36.7 80 18 121/68 95 Room Air 11/09/16 07:36 Room Air 11/09/16 07:00 36.8 16 126/73 97 Room Air 11/08/16 23:55 Room Air 11/08/16 23:30 36.7 76 18 136/76 97 Room Air 11/08/16 19:10 Room Air 11/08/16 16:00 Room Air 11/08/16 15:29 36.9 71 16 113/67 97 Room Air Laboratory Results 24 Hours: Test 11/09/16 05:37 Hematocrit 33.3 % Hemoglobin 10.7 g/dL Assessment & Plan Assessment: POD #3 s/p Left Tibia: Revision Left Below the Knee Amputation, Debridement Ulcer and Application of Plasma Rich Protein - Dressing changed last evening, Hevovac pulled yesterday -pending findings, likely d/c on PO Abx when stable; currently on IV Dapto. Will consult ID to ensure proper antibiotic coverage for patient to go home. Anticoagulation- has h/o of PE, restarted Heparin SQ last evening. Pain Management- currently pain well controlled w/ current regimen DM I.5 with diabetic neuropathy and subsequent diabetic gastroparesis, severe insulin resistance, diabetic wounds s/p bilat BKAs- Pt takes Toujeo as outpatient. Last HgbA1C 15% in Oct 2016 up from 11% previously due to infection/ stress - Cont Lantus 32 U BID and insulin gtt, recalculate total daily dose tomorrow- appreciate Pharmacy help - ISS with Accuchecks ACHS - Diabetic diet - Zofran and phenergan prn Discharge Planning Discharge Planning: home
--- NOTE | 2016-11-09 12:51 | Hospitalist Progress Note ---
Hospitalist Progress Note Date of Service Nov 09, 2016. (Briana oM PA-C) Subjective Pt evaluation today including: conversation w/ patient, physical exam, chart review, lab review, review of inpatient medication list Pt c/o aching in stump. Tolerable. No CP, SOB. Feeling a little dizzy-which she thinks is due to the drop in her glucose over the last 3 days. No headache. No changes in vision. Passing gas. No BM yet. typically has 2 BMs per week Additional Comments: 6 system review negative. Please see pertinent positives in the history of present illness section. (Briana Mo PA-C) Objective Vital Signs Date Time Temp Pulse Resp B/P Pulse Ox O2 Delivery O2 Flow Rate FiO2 11/09/16 07:50 95 Room Air 11/09/16 07:36 36.7 80 18 121/68 95 Room Air 11/09/16 07:36 Room Air 11/09/16 07:00 36.8 16 126/73 97 Room Air 11/08/16 23:55 Room Air 11/08/16 23:30 36.7 76 18 136/76 97 Room Air 11/08/16 19:10 Room Air 11/08/16 16:00 Room Air 11/08/16 15:29 36.9 71 16 113/67 97 Room Air (Briana Mo PA-C) Physical Exam General Appearance: no apparent distress Neck: no JVD Respiratory/Chest: lungs clear Cardiovascular: regular rate, rhythm Abdomen: normal bowel sounds, non tender, soft Extremities: + pertinent finding (LLE dressing without any drainage. ) Neurologic/Psychiatric: oriented x 3 Skin: warm/dry (Briana Mo PA-C) Laboratory Results Last 24 Hours Test 11/08/16 17:07 11/08/16 20:56 11/09/16 05:37 11/09/16 08:05 Bedside Glucose 171 mg/dl 208 mg/dl 229 mg/dl White Blood Count 7.13 K/uL Red Blood Count 3.78 M/uL Hemoglobin 10.7 g/dL Hematocrit 33.3 % Mean Corpuscular Volume 88.1 fL Mean Corpuscular Hemoglobin 28.3 pg Mean Corpuscular Hemoglobin Concent 32.1 g/dl RDW Standard Deviation 44.0 fL RDW Coefficient of Variation 13.7 % Platelet Count 193 K/uL Mean Platelet Volume 9.2 fL Sodium Level 142 mmol/L Potassium Level 3.5 mmol/L Chloride Level 108 mmol/L Carbon Dioxide Level 25 mmol/L Anion Gap 9.0 mmol/L Blood Urea Nitrogen 10 mg/dl Creatinine 0.62 mg/dl Est Creatinine Clear Calc Drug Dose 127.5 ml/min Estimated GFR () 122.7 Estimated GFR (Non- 105.9 BUN/Creatinine Ratio 16.0 Random Glucose 224 mg/dl Calcium Level 8.0 mg/dl Magnesium Level 1.9 mg/dl Test 11/09/16 11:47 11/09/16 12:19 Bedside Glucose 128 mg/dl (Briana Mo, PATpiC) Assessment and Plan This is a 51 yo F with PMHx with DM type 1.5 with severe insulin resistance, gastroparesis, GERD, morbid obesity but since lost 120 lbs, HTN, previous PE, hyperlipidemia, hypothyroidism, CAD s/p cardiac stent x 3 with chronic stable angina, PAD, diabetic neuropathy and anxiety. She is s/p revision of Left BKA secondary to chronic ulceration and previous left below knee amputation with dehiscence. Pt hx of nonhealing ulcer with wound dehiscence of the Left BKA that was originally completed Sep 2015. Right BKA was completed Oct 2013. On admission, changed antibiotics from Ancef IV, cipro PO and bactrim PO to Daptomycin IV and Zosyn IV to cover resistant organisms until the culture and sensitivity results return Now growing MSSA on wound culture today S/p revision of Left BKA secondary to chronic ulceration/infection now debrided and previous left below knee amputation with dehiscence by Dr. Ramos. POD#3 - has been on cipro and bactrim since July - d/c Zosyn, continue Dapto for now and then likely transition back to Bactrim ( dopes have previous h/o MRSA) or keflex upon discharge, was followed by Wound clinic and should continue after discharge - Pain management and anticoagulation per primary team Anticoagulation: heparin SQ Pain: oxycodone 5-10 mg Q4H prn, toradol 30 mg Q6H, MS 1 mg IV for breakthrough pain - Bowel regimen on board: senna and colace tabs, dulcolax, MOM prn, senokot prn HTN, CAD s/p stenting x 3, PAD, Chronic angina-no symptoms, doing well post-op. Diving Judge is Dr. Peralta - Cont Imdur 60 mg BID, ASA 81mg daily, Crestor (is on this at home but is not on her home med list) - Cont Ranexa 1000 mg BID for chronic angina Hyperlipidemia - continue Crestor Dizziness-likely from decrease in glucose. DM I.5 with diabetic neuropathy and subsequent diabetic gastroparesis, severe insulin resistance, diabetic wounds s/p bilat BKAs- Pt takes Toujeo as outpatient. Last HgbA1C 15% in Oct 2016 up from 11% previously due to infection/ stress. Glucose stabilizing - Cont Lantus 32 U BID and stop insulin gtt - ISS with aggressive carb counting 1 unit/4 grams carbs and correction factor 15 with Accuchecks ACHS - Diabetic diet - Zofran and phenergan prn -upon d/c, Pt may continue her home dose of Toujeo, novolog with meals and insulin sliding scale with carb ration 1:1 gastroparesis, GERD -continue pepcid and does take Dexilant at home -continue protonix while in house Hypothyroidism - Cont levothyroxine 112 mcg Anxiety - Xanax 1 mg TID DVT ppx: heparin SQ CODE STATUS: Full code DISPO -plan is to d/c home stable for d/c from a medical standpoint. Will continue to follow while in house (Briana Mo, PA-C) i personally examined pt and verified all dunbar points w A Chepe PAC discussed sugars - she notes she's never checked postprandial -- uses a carb ratio but doesn't check f/u sugar has been frustrated with sugar readings nad breathing unlabored DM - uncontrolled. d/w pt that being both insulin requiring and insulin resistant does present a challenge, but would anticipate that using her carb ratio as a "guidepost" but then checking 2hr postprandial w goal of ~100-150 would then allow her to better learn from her body/results/etc. she was optimistic about this approach. otherwise as above (Chao La D.O.)
--- NOTE | 2016-11-09 14:25 | Medical Consult ---
Consultation Date of Consultation: Nov 09, 2016. Attending Physician: Dom Ramos D.O. Reason for Consultation: Abx choice after revision BKA History of Present Illness Patient is a 51 yo diabetic female well known to myself from previous admission who was directly admitted by orthopedics for concerns of ulceration and dehiscence of her left BKA flap. The patient has history of Right BKA in 2012 and Left BKA in 2014. The patient was previously seen by myself and Dr. Richardson in 2014 for left foot and heel extensive osteomyelitis after which time she ultimately had her left BKA completed. The patient states that she initially did well following her BKA. Following fitting for her prosthesis, she began to note an ulceration at her left BKA site. She states that she has had this opening for almost a year which has been non-healing. She saw the [facility] in October 2016 in regards to this wound. I spoke to the [facility] this afternoon, and they did not take any recent cultures. Since current admission, the patient is now s/p left BKA revision with debridement of the ulceration. The operative record was reviewed by myself and it was noted that there was a small fluid collection during surgery. Cultures were taken and grew MSSA. Patient does have history of Enterococcal infection as well as multiple MRSA infections in the past. WBC count is 7.13. She is an uncontrolled diabetic as well. Last A1C according to her was around 15. Her Glucose on admission was 357. Past Medical/Surgical History Medical Problems: (1) Diabetes (2) Diabetic ulcer (3) Exostosis (4) HTN (hypertension) (5) Painful amputation stump (6) Pulmonary embolism (7) Sepsis Surgical Problems: (1) H/O: (2) Hx of BKA Family History Diabetes mellitus Noncontributory Social History Smoking Status: Never Smoker Drug Use: none Marital Status: Housing Status: lives with family Occupation Status: disabled Allergies Coded Allergies: Butorphanol (Verified Allergy, Severe, SHORTNESS OF BREATH, 11/06/16) Spironolactone (Verified Allergy, Mild, RASH, 11/06/16) Atorvastatin (Verified Allergy, Unknown, RASH, 11/06/16) Fenofibrate (Verified Allergy, Unknown, RASH, 11/06/16) Vancomycin (Verified Adverse Reaction, Mild, RASH-DEVYN SYNDROME, 11/06/16) red man syndrome Home Medications Reported Home Medications Medications Dose Route/Sig Max Daily Dose Days Date Category Dose Instructions Cipro (Ciprofloxacin) 250 Mg Tab 1,000 Mg PO QAM 11/03/16 Reported Bactrim Ds 800MG/160MG (Trimethoprim/Sulfamethoxazole) Tab 1 Tab PO BID 11/03/16 Reported Oxycodone Hcl 10 Mg Tab 1 Tab PO QID PRN 11/03/16 Reported Toujeo Solostar (Insulin Glargine) 300 Unit/Ml Inj 32 Units SC BID 05/20/16 Reported PATIENT REPORTS TAKES 10 AM & 10 PM Pepcid (Famotidine) 20 Mg Tab 20 Mg PO HS 05/12/16 Reported PT INTERCHANGES WITH ZANTAC AND PRILOSEC Stool Softener (Sennosides-Docusate Sodium) 1 Tab Tab 2 Tab PO HS PRN 05/12/16 Reported Xanax (Alprazolam) 1 Mg Tab 1 Mg PO TID 05/12/16 Reported Synthroid (Levothyroxine Sodium) 112 Mcg Tab 112 Mcg PO QAM 05/12/16 Reported Ranexa (Ranolazine) 1,000 Mg Tab 1,000 Mg PO BID 04/18/15 Reported Aspirin Ec (Aspirin) 81 Mg Tab 81 Mg PO QAM 04/16/15 Reported Zofran (Ondansetron HCl) 4 Mg Tab 4-8 Mg PO Q6H PRN 04/16/15 Reported Imdur (Isosorbide Mononitrate) 30 Mg Tab 60 Mg PO BID 03/21/15 Reported Current Inpatient Medications Current Inpatient Medications Medications (Trade) Dose Ordered Sig/Ochoa Route Start Time Stop Time Status Last Admin Dose Admin Alprazolam (Xanax Tab) 1 mg TID PO 11/06/16 21:00 12/06/16 20:59 11/09/16 14:04 1 MG Aspirin (Ecotrin Tab) 81 mg QAM PO 11/07/16 09:00 12/07/16 08:59 11/09/16 08:28 81 MG Famotidine (Pepcid Tab) 20 mg HS PO 11/06/16 21:00 12/06/16 20:59 11/08/16 20:48 20 MG Isosorbide Mononitrate (Imdur Ext Rel Tab) 60 mg BID PO 11/06/16 21:00 12/06/16 20:59 11/09/16 08:27 60 MG Levothyroxine Sodium (Synthroid Tab) 112 mcg DAILYBB PO 11/07/16 06:00 12/07/16 06:59 11/09/16 06:11 112 MCG Ondansetron HCl (Zofran Tab) 8 mg Q6H PRN PO 11/06/16 15:15 12/06/16 15:14 Senna/Docusate Sodium (Senokot S Tab) 2 tab HS PRN PO 11/06/16 15:15 12/06/16 15:14 Insulin Glargine (Lantus Solostar Pen) 32 unit BID SC 11/07/16 09:00 12/07/16 08:59 Future hold 11/09/16 08:37 32 UNIT Ranolazine (Ranexa ER Tab) 1,000 mg BID PO 11/06/16 21:00 12/06/16 20:59 11/09/16 08:29 1,000 MG Oxycodone HCl (Roxicodone Immediate Rel Tab) 1-2 TABS FOR PAIN 1 TABLET ... Q4H PRN PO 11/06/16 15:15 11/20/16 15:14 11/09/16 12:27 10 MG Morphine Sulfate (MoRPHine SULFATE INJ) 1 mg Q1HWA PRN IV 11/06/16 15:15 11/20/16 15:14 11/09/16 06:15 1 MG Acetaminophen (Tylenol Tab) 1,000 mg Q8H PO 11/06/16 22:00 12/06/16 21:59 11/09/16 14:04 1,000 MG Magnesium Hydroxide (Milk Of Magnesia Susp) 30 ml Q6H PRN PO 11/06/16 15:15 12/06/16 15:14 Bisacodyl (Dulcolax Supp) 10 mg DAILY PRN AR 11/06/16 15:15 12/06/16 15:14 Sodium Biphosphate/ Sodium Phosphate (Fleet Enema) 132 ml DAILY PRN AR 11/06/16 15:15 12/06/16 15:14 Senna (Senokot Tab) 17.2 mg HS PO 11/06/16 21:00 12/06/16 20:59 11/08/16 20:47 17.2 MG Docusate Sodium (coLACE CAP) 100 mg BID PO 11/06/16 21:00 12/06/16 20:59 11/09/16 08:28 100 MG Diphenhydramine HCl (Benadryl Cap) 25 mg Q8H PRN PO 11/06/16 15:15 12/06/16 15:14 11/08/16 23:57 25 MG Al Hydrox/Mg Hydrox/Simethicone (Maalox Max Susp) 15 ml Q4H PRN PO 11/06/16 15:15 12/06/16 15:14 Zolpidem Tartrate (Ambien Tab) 5 mg HSZ PRN PO 11/06/16 15:15 12/06/16 15:14 Multivitamins (Multivitamin Tab) 1 tab QAM PO 11/07/16 09:00 12/07/16 08:59 11/09/16 08:28 1 TAB Ondansetron HCl (Zofran Inj) 4 mg Q6H PRN IV 11/06/16 15:15 12/06/16 15:14 11/08/16 22:18 4 MG Pantoprazole Sodium (Protonix Tab) 40 mg QAM PO 11/07/16 09:00 12/07/16 08:59 11/09/16 08:28 40 MG Miscellaneous 1 ea 1 ea PRN PRN N/A 11/06/16 16:45 11/06/17 16:44 Promethazine HCl 12.5 mg/Sodium Chloride 50.5 ml @ 204 mls/hr Q6H PRN IV 11/06/16 18:30 12/06/16 18:29 11/08/16 01:28 204 MLS/HR Daptomycin/Sodium Chloride (Cubicin IV/Nss 50ml) 57 ml @ 100 mls/hr DAILY@2000 IV 11/06/16 20:00 12/06/16 19:59 11/08/16 20:43 100 MLS/HR Lactobacillus Acidophilus (Floranex Tab) 4 tab TIDM PO 11/07/16 08:30 12/07/16 08:29 11/09/16 12:26 4 TAB Glucose (Glucose 40% Gel) UD PRN PO 11/07/16 08:00 12/07/16 07:59 Glucose (Glucose Chew Tab) 1 tabs UD PRN PO 11/07/16 08:00 12/07/16 07:59 Dextrose (Dextrose 50% 50ML Syringe) 50 ml UD PRN IV 11/07/16 08:00 12/07/16 07:59 Glucagon (Glucagon Inj) 1 mg UD PRN SQ 11/07/16 08:00 12/07/16 07:59 Heparin Sodium (Porcine) (Heparin Sq 5000 Unit/0.5ml) 5,000 unit Q8 SQ 11/07/16 22:00 12/07/16 21:59 11/09/16 14:04 5,000 UNIT Insulin Aspart (novoLOG ASPART) SLIDING SCALE G... ACHS SC 11/08/16 12:00 12/08/16 11:59 11/09/16 12:32 21 UNITS Rosuvastatin Calcium (Crestor Tab) 40 mg QAM PO 11/09/16 09:00 12/09/16 08:59 11/09/16 08:28 40 MG Heparin Sodium (Porcine) (Heparin 100 Unit/ml 5ml Flush) 5 ml PRN PRN IV 11/09/16 06:45 12/09/16 06:44 11/09/16 06:41 5 ML Review of Systems Constitutional: + chills, + fatigue, No fever Eyes: No worsening of vision ENT: No hearing loss Respiratory: No cough, No shortness of breath Cardiovascular: No chest pain Abdomen: + nausea, No diarrhea, No pain, No vomiting Musculoskeletal: + problem reported (pain in the left lower leg amputation site ; B/L BKA) Genitourinary - Female: No dysuria Integumentary: + new/changing skin lesions (ulceration of the ), No itch, No rash Physical Exam Date Time Temp Pulse Resp B/P Pulse Ox O2 Delivery O2 Flow Rate FiO2 11/09/16 07:50 95 Room Air 11/09/16 07:36 36.7 80 18 121/68 95 Room Air 11/09/16 07:36 Room Air 11/09/16 07:00 36.8 16 126/73 97 Room Air 11/08/16 23:55 Room Air 11/08/16 23:30 36.7 76 18 136/76 97 Room Air 11/08/16 19:10 Room Air 11/08/16 16:00 Room Air 11/08/16 15:29 36.9 71 16 113/67 97 Room Air General Appearance: WD/WN, no apparent distress Head: normocephalic, atraumatic Eyes: normal inspection, sclerae normal ENT: hearing grossly normal Neck: supple, trachea midline Respiratory/Chest: chest non-tender, lungs clear, normal breath sounds, no respiratory distress, no accessory muscle use Cardiovascular: regular rate, rhythm Abdomen/GI: normal bowel sounds, non tender, soft Back: normal inspection Extremities/Musculoskelatal: + pertinent finding (bilateral BKA's. Left BKA site with large dressing in place. c/d/i. Right BKA sight well healed with no erythema, edema, or warmth) Neurologic/Psych: alert, normal mood/affect Skin: warm/dry, no rash Laboratory Results RUN DATE: 11/08/16 [facility] PAGE 1 RUN TIME: 1539 Specimen Inquiry PATIENT: JIMMY DEL RIO LOC: [facility] U # : [id number] AGE/SX: 51/F ROOM: E306 REG : 11/06/[address]: Dom Ramos D.O. : 1965 BED: 1 DIS : STATUS: ADM Clif TLOC: SPEC #: [id number] FELY: 11/06/16-UNK STATUS: RES REQ #: [id number] RECD: 11/06/[address]: Dom Ramos D.O. SOURCE: DRAIN-DEEP ENTR: 11/06/[address]: Venkata Ricardo M.D. [facility] Charles Cottrell M.D. ORDERED: AER/NAVID CULTSMR COMMENTS: SPECIMEN SOURCE IS LEFT AMPUTATED STUMP Procedure Result Verified Site GRAM STAIN Final 11/07/16 RESULT NO EPITHELIAL CELLS NO WBCs SEEN NO ORGANISMS SEEN OR AER/NAVID CULT Preliminary 11/08/16 Organism 1 STAPHYLOCOCCUS AUREUS QUANITY FEW SENS SENSITIVITY TO FOLLOW 1. STAPHYLOCOCCUS AUREUS Target Route Dose RX AB Cost M.I.C. IQ ------ ----- ------ -- ------ -------- - ------ TRIMET/SULFA S <=0.5/ 9.5 * OXACILLIN S <=0.25 VANCOMYCIN S 2 ERYTHROMYCIN S <=0.5 TETRACYCLINE S <=4 CLINDAMYCIN S <=0.5 DAPTOMYCIN S <=0.5 S = SENSITIVE I = INTERMEDIATE R = RESISTANT Last 24 Hours Test 11/08/16 17:07 11/08/16 20:56 11/09/16 05:37 11/09/16 08:05 Bedside Glucose 171 mg/dl 208 mg/dl 229 mg/dl White Blood Count 7.13 K/uL Red Blood Count 3.78 M/uL Hemoglobin 10.7 g/dL Hematocrit 33.3 % Mean Corpuscular Volume 88.1 fL Mean Corpuscular Hemoglobin 28.3 pg Mean Corpuscular Hemoglobin Concent 32.1 g/dl RDW Standard Deviation 44.0 fL RDW Coefficient of Variation 13.7 % Platelet Count 193 K/uL Mean Platelet Volume 9.2 fL Sodium Level 142 mmol/L Potassium Level 3.5 mmol/L Chloride Level 108 mmol/L Carbon Dioxide Level 25 mmol/L Anion Gap 9.0 mmol/L Blood Urea Nitrogen 10 mg/dl Creatinine 0.62 mg/dl Est Creatinine Clear Calc Drug Dose 127.5 ml/min Estimated GFR () 122.7 Estimated GFR (Non- 105.9 BUN/Creatinine Ratio 16.0 Random Glucose 224 mg/dl Calcium Level 8.0 mg/dl Magnesium Level 1.9 mg/dl Test 11/09/16 12:19 11/09/16 12:30 Bedside Glucose 128 mg/dl 25-Hydroxy Vitamin D Total 21.7 ng/ml Assessment & Plan Patient with non-healing wound of the left BKA incision site now s/p revision. Culture from revision is growing MSSA. Patient has history of MRSA as well as Enterococcal infection of the left lower extremity prior to BKA. She also has history of MRSA infection elsewhere such as her buttocks, chin, etc. Because patient appears to have problems with wound healing and also has uncontrolled diabetes, recommend continuation of IV antibiotic therapy for at least one to two more weeks. Prefer to continue IV Daptomycin if covered due to ease of use and MRSA coverage. She may require continued PO abx therapy following IV abx pending improvement. She will need ID follow up as an outpatient as well. She has a port in place which likely could be utilized for IV abx therapy, but if not, she will need a PICC line. Also encouraged patient to see an residential assistant as an outpatient. I spoke with Dean Silva regarding this patient as well. Case reviewed and agree with above assessment.
[2016-11-09 15:06] VITALS: BP 120/72; PULSE 77; TEMP 36.9; O2SAT 96
[2016-11-09] MEDS: PROMETHAZINE HCL INJ 12.5 MG in SODIUM CHLORIDE 0.9% 50ML 50 ML IV PRN (15:56)
[2016-11-09 20:24] VITALS: BP 128/75; PULSE 71
[2016-11-09] MEDS: DAPTOmycin IV 350 MG in SODIUM CHLORIDE 0.9% 50ML 50 ML IV SCH (20:24)
[2016-11-09] MEDS: FAMOTIDINE 20 MG TAB PO SCH (20:25)
[2016-11-09] MEDS: SENNA 8.6 MG TAB PO SCH (20:27)
[2016-11-09 23:10] VITALS: BP 138/76; PULSE 77; TEMP 36.8; O2SAT 94
[2016-11-10] MEDS: OXYCODONE HCL IR 5 MG TAB (IMMEDIATE RELEASE) PO PRN ×4 (04:57→17:11)
[2016-11-10] MEDS: HEPARIN SOD 5000 UNIT/0.5 ML CARP SQ SCH ×3 (05:04→21:21)
[2016-11-10] MEDS: ACETAMINOPHEN 500 MG TAB PO SCH ×3 (05:05→21:16)
[2016-11-10] MEDS: LEVOTHYROXINE 112 MCG TAB PO SCH (05:05)
[2016-11-10 06:24] LABS: HEMATOCRIT 32.2 % (37-47); MEAN CELL VOLUME 87.7 fL (80-100); MEAN CORPUSCULAR HEMOGLOBIN 29.2 pg (25-34); MEAN CORPUSCULAR HGB CONC 33.2 g/dl (32-36); MEAN PLATELET VOLUME 9.1 fL (7.4-10.4); PLATELET COUNT 204 K/uL (130-400); RED BLOOD COUNT 3.67 M/uL (4.2-5.4); WHITE BLOOD COUNT 5.85 K/uL (4.8-10.8)
[2016-11-10 07:30] VITALS: BP 122/68; PULSE 67; TEMP 36.8; O2SAT 95
--- NOTE | 2016-11-10 08:17 | Orthopedic Progress Note ---
Orthopedic Progress Note Date of Service Nov 10, 2016. Subjective Post OP Day: 4 Reports: feeling well, pain controlled w PO medications, Denies: complaints, light headedness, nausea / vomiting Additional Notes: States blood sugars are doing well. Port was accessed for IV abx tx. Objective N/V intact, capillary refill less than 2 sec., dressing C/D/I, A&O x3 Date Time Temp Pulse Resp B/P Pulse Ox O2 Delivery O2 Flow Rate FiO2 11/10/16 07:33 Room Air 11/10/16 07:30 36.8 67 16 122/68 95 Room Air 11/09/16 23:10 36.8 77 16 138/76 94 Room Air 11/09/16 20:24 71 128/75 11/09/16 20:20 Room Air 11/09/16 15:06 36.9 77 18 120/72 96 Room Air Laboratory Results 24 Hours: Test 11/10/16 05:40 Hematocrit 32.2 % Hemoglobin 10.7 g/dL Assessment & Plan Assessment: POD #4 s/p Left Tibia: Revision Left Below the Knee Amputation, Debridement Ulcer and Application of Plasma Rich Protein - Dressing changed last evening, Hevovac pulled yesterday -pending findings, likely d/c on PO Abx when stable; currently on IV Dapto. IV Daptomycin 350 mg daily x 2 wks recommended by ID. If home therapy is set up , will be able to d/c today. Anticoagulation- has h/o of PE, restarted Heparin SQ last evening. Pain Management- currently pain well controlled w/ current regimen DM I.5 with diabetic neuropathy and subsequent diabetic gastroparesis, severe insulin resistance, diabetic wounds s/p bilat BKAs- Pt takes Toujeo as outpatient. Last HgbA1C 15% in Oct 2016 up from 11% previously due to infection/ stress - Cont Lantus 32 U BID and insulin gtt, recalculate total daily dose tomorrow- appreciate Pharmacy help - ISS with Accuchecks ACHS - Diabetic diet - Zofran and phenergan prn Inhouse Planning Pain Management: Morphine, Oxy IR DVT Prophylaxis: ASA, Heparin Drip Discharge Planning Discharge Planning: home with home health Pain Management: Percocet DVT Prophylaxis: ASA
[2016-11-10] MEDS ORDERED: DAPT500I IV (08:20)
[2016-11-10] MEDS ORDERED: OXYC-57 PO (08:20)
--- NOTE | 2016-11-10 08:25 | Discharge Instructions ---
Discharge Instructions Admission Reason for Admission: Left Knee Ulcer S/P Below The Knee Amputation Discharge Discharge Diagnosis / Problem: left BKA ulcer Discharge Goals Goal(s): Decrease discomfort, Improve function Activity Recommendations Activity Limitations: as noted below Lifting Limitations: until after follow-up appointment Exercise/Sports Limitations: until after follow-up appointment May Resume Sexual Activity: when tolerated Shower/Bathe: keep incision dry Driving or Machine Use: Weightbearing Status: Left non-weightbearing . Instructions / Follow-Up Instructions / Follow-Up ACTIVITY RECOMMENDATIONS: Limitations: No weight bearing to LLE. No use of prosthesis at this time. SPECIAL CARE INSTRUCTIONS: * Some drainage onto the dressing is normal and is no cause for alarm. * Some swelling is natural especially after walking. * When resting, keep your foot elevated above the level of your heart. * Call [facility] if you notice: -Increased drainage -Fever over 101 degrees F -Severe constant pain BANDAGE: * Leave bandage/cast in place unless otherwise directed. * Keep bandage/cast dry at all times. FOLLOW UP VISIT WITH DR. JAMES If appointment is not already scheduled: Please call [facility] after you get home today to schedule a follow-up appointment for [address] James at . If the patient is unable to be d/c'd today, dressing change will be done here then she will follow up in [address] James's clinic. Please schedule a follow up visit with your primary care provider to discuss insulin treatment. Follow up within 1 week to have your insulin treatments from your stay reviewed since your blood sugars were much improved. Current Hospital Diet Patient's current hospital diet: Diabetes Type 1 Diet Discharge Diet Recommended Diet: Diabetes Type 1 Diet Procedures Procedures Performed: Left Tibia: Revision Left Below the Knee Amputation, Debridement Ulcer and Application of Plasma Rich Protein Pending Studies Studies pending at discharge: no Medical Emergencies . Who to Call and When: Medical Emergencies: If at any time you feel your situation is an emergency, please call 911 immediately. . Non-Emergent Contact Non-Emergency issues call your: Surgeon Call Non-Emergent contact if: temperature is above 101, your pain is not controlled, your pain is worsening, wound has increased drainage, wound has increased redness, wound has increased pain . "Provider Documentation" section prepared by Dean Silva. VTE Core Measure Inpt VTE Proph given/why not?: Other Anticoagulation (Aspirin 81 mg daily)
[2016-11-10] MEDS ORDERED: CHOL200010 PO (08:34)
[2016-11-10] MEDS ORDERED: ERGO50002 PO (08:34)
[2016-11-10] MEDS: ISOSORBIDE MONONITRATE 60 MG TABCR PO SCH ×2 (08:52→21:12)
[2016-11-10] MEDS: PANTOprazole SOD 40 MG TAB PO SCH (08:53)
[2016-11-10] MEDS: CHOLECALCIFEROL 1000 INTER.UNIT TAB PO SCH ×2 (08:53→08:57)
[2016-11-10] MEDS: LACTOBACILLUS ACIDOPHILUS (FLORANEX) TAB PO SCH ×3 (08:53→18:05)
[2016-11-10] MEDS: ASPIRIN 81 MG ECTAB PO SCH (08:54)
[2016-11-10] MEDS: MULTIVITAMIN TAB PO SCH (08:54)
[2016-11-10] MEDS: DOCUSATE SODIUM 100 MG CAP PO SCH ×2 (08:54→21:12)
[2016-11-10] MEDS: RANOLAZINE 500 MG ER TAB PO SCH ×2 (08:54→21:14)
[2016-11-10] MEDS: ROSUVASTATIN CALCIUM 20 MG TAB PO SCH (08:54)
[2016-11-10] MEDS ORDERED: ERGOCALCIFEROL 50,000 INTER.UNIT CAP PO SCH (09:00)
[2016-11-10] MEDS: INSULIN ASPART 100 UNITS/ML 3 ML PEN SC SCH ×4 (09:03→21:00)
[2016-11-10] MEDS: ONDANSETRON INJ 2 MG/ML 2 ML VIAL IV PRN (09:04)
[2016-11-10] MEDS: INSULIN GLARGINE SOLOSTAR 100 UNITS/ML 3 ML PEN SC SCH ×2 (09:04→21:21)
[2016-11-10] MEDS: ALPRAZOLAM 0.5 MG TAB PO SCH ×3 (09:04→21:12)
--- NOTE | 2016-11-10 10:52 | Infectious Disease Progress Nt ---
Progress Note Date of Service Nov 10, 2016. Subjective Pt evaluation today including: conversation w/ patient, physical exam, chart review, lab review, review of studies, conversation w/ crop consultant (Ortho, Case management), review of inpatient medication list Patient is feeling well this morning other than continued nausea and pain in her left amputation site. She is tolerating her abx well otherwise, and is anticipating D/C this afternoon or tomorrow morning. I spoke with Case Management and both Daptomycin and Ceftaroline are not well covered by the patient's insurance. She is also allergic to Vancomycin. She has history of MRSA , but her culture since admission continues to grow only MSSA however she was on Bactrim up until admission. All Other Systems: Reviewed and Negative Medications Current Inpatient Medications Medications (Trade) Dose Ordered Sig/Ochoa Route Start Time Stop Time Status Last Admin Dose Admin Alprazolam (Xanax Tab) 1 mg TID PO 11/06/16 21:00 12/06/16 20:59 11/10/16 09:04 1 MG Aspirin (Ecotrin Tab) 81 mg QAM PO 11/07/16 09:00 12/07/16 08:59 11/10/16 08:54 81 MG Famotidine (Pepcid Tab) 20 mg HS PO 11/06/16 21:00 12/06/16 20:59 11/09/16 20:25 20 MG Isosorbide Mononitrate (Imdur Ext Rel Tab) 60 mg BID PO 11/06/16 21:00 12/06/16 20:59 11/10/16 08:52 60 MG Levothyroxine Sodium (Synthroid Tab) 112 mcg DAILYBB PO 11/07/16 06:00 12/07/16 06:59 11/10/16 05:05 112 MCG Ondansetron HCl (Zofran Tab) 8 mg Q6H PRN PO 11/06/16 15:15 12/06/16 15:14 11/09/16 14:27 8 MG Senna/Docusate Sodium (Senokot S Tab) 2 tab HS PRN PO 11/06/16 15:15 12/06/16 15:14 Insulin Glargine (Lantus Solostar Pen) 32 unit BID SC 11/07/16 09:00 12/07/16 08:59 Future hold 11/10/16 09:04 32 UNIT Ranolazine (Ranexa ER Tab) 1,000 mg BID PO 11/06/16 21:00 12/06/16 20:59 11/10/16 08:54 1,000 MG Oxycodone HCl (Roxicodone Immediate Rel Tab) 1-2 TABS FOR PAIN 1 TABLET ... Q4H PRN PO 11/06/16 15:15 11/20/16 15:14 11/10/16 04:57 10 MG Morphine Sulfate (MoRPHine SULFATE INJ) 1 mg Q1HWA PRN IV 11/06/16 15:15 11/20/16 15:14 11/09/16 23:32 1 MG Acetaminophen (Tylenol Tab) 1,000 mg Q8H PO 11/06/16 22:00 12/06/16 21:59 11/10/16 05:05 1,000 MG Magnesium Hydroxide (Milk Of Magnesia Susp) 30 ml Q6H PRN PO 11/06/16 15:15 12/06/16 15:14 Bisacodyl (Dulcolax Supp) 10 mg DAILY PRN [place] 11/06/16 15:15 12/06/16 15:14 Sodium Biphosphate/ Sodium Phosphate (Fleet Enema) 132 ml DAILY PRN [place] 11/06/16 15:15 12/06/16 15:14 Senna (Senokot Tab) 17.2 mg HS PO 11/06/16 21:00 12/06/16 20:59 11/09/16 20:27 17.2 MG Docusate Sodium (coLACE CAP) 100 mg BID PO 11/06/16 21:00 12/06/16 20:59 11/10/16 08:54 100 MG Diphenhydramine HCl (Benadryl Cap) 25 mg Q8H PRN PO 11/06/16 15:15 12/06/16 15:14 11/08/16 23:57 25 MG Al Hydrox/Mg Hydrox/Simethicone (Maalox Max Susp) 15 ml Q4H PRN PO 11/06/16 15:15 12/06/16 15:14 Zolpidem Tartrate (Ambien Tab) 5 mg HSZ PRN PO 11/06/16 15:15 12/06/16 15:14 Multivitamins (Multivitamin Tab) 1 tab QAM PO 11/07/16 09:00 12/07/16 08:59 11/10/16 08:54 1 TAB Ondansetron HCl (Zofran Inj) 4 mg Q6H PRN IV 11/06/16 15:15 12/06/16 15:14 11/10/16 09:04 4 MG Pantoprazole Sodium (Protonix Tab) 40 mg QAM PO 11/07/16 09:00 12/07/16 08:59 11/10/16 08:53 40 MG Miscellaneous 1 ea 1 ea PRN PRN N/A 11/06/16 16:45 11/06/17 16:44 Promethazine HCl 12.5 mg/Sodium Chloride 50.5 ml @ 204 mls/hr Q6H PRN IV 11/06/16 18:30 12/06/16 18:29 11/09/16 15:56 204 MLS/HR Daptomycin/Sodium Chloride (Cubicin IV/Nss 50ml) 57 ml @ 100 mls/hr DAILY@2000 IV 11/06/16 20:00 12/06/16 19:59 Future hold 11/09/16 20:24 100 MLS/HR Lactobacillus Acidophilus (Floranex Tab) 4 tab TIDM PO 11/07/16 08:30 12/07/16 08:29 11/10/16 08:53 4 TAB Glucose (Glucose 40% Gel) UD PRN PO 11/07/16 08:00 12/07/16 07:59 Glucose (Glucose Chew Tab) 1 tabs UD PRN PO 11/07/16 08:00 12/07/16 07:59 Dextrose (Dextrose 50% 50ML Syringe) 50 ml UD PRN IV 11/07/16 08:00 12/07/16 07:59 Glucagon (Glucagon Inj) 1 mg UD PRN SQ 11/07/16 08:00 12/07/16 07:59 Heparin Sodium (Porcine) (Heparin Sq 5000 Unit/0.5ml) 5,000 unit Q8 SQ 11/07/16 22:00 12/07/16 21:59 11/10/16 05:04 5,000 UNIT Insulin Aspart (novoLOG ASPART) SLIDING SCALE G... ACHS SC 11/08/16 12:00 12/08/16 11:59 11/10/16 09:03 20 UNITS Rosuvastatin Calcium (Crestor Tab) 40 mg QAM PO 11/09/16 09:00 12/09/16 08:59 11/10/16 08:54 40 MG Heparin Sodium (Porcine) (Heparin 100 Unit/ml 5ml Flush) 5 ml PRN PRN IV 11/09/16 06:45 12/09/16 06:44 11/10/16 06:34 5 ML Cholecalciferol 1000 inter.unit 1,000 inter.unit QAM PO 11/10/16 08:00 12/10/16 07:59 11/10/16 08:53 1,000 INTER.UNIT Daptomycin/Sodium Chloride (Cubicin IV/Nss 50ml) 57 ml @ 100 mls/hr TODAY@1600 IV 11/10/16 16:00 11/10/16 18:00 Ergocalciferol (Vitamin D Cap) 50,000 interunit Tu@0900 PO 11/10/16 09:00 12/10/16 08:59 11/10/16 09:04 50,000 INTERUNIT Cholecalciferol (Vitamin D Tab) 2,000 inter.unit QAM PO 11/11/16 09:00 12/11/16 08:59 Objective Vital Signs Date Time Temp Pulse Resp B/P Pulse Ox O2 Delivery O2 Flow Rate FiO2 11/10/16 07:33 Room Air 11/10/16 07:30 36.8 67 16 122/68 95 Room Air 11/09/16 23:10 36.8 77 16 138/76 94 Room Air 11/09/16 20:24 71 128/75 11/09/16 20:20 Room Air 11/09/16 15:06 36.9 77 18 120/72 96 Room Air Physical Exam General Appearance: WD/WN, no apparent distress Eyes: normal inspection, sclerae normal ENT: hearing grossly normal Neck: supple, trachea midline Respiratory/Chest: no respiratory distress, no accessory muscle use Cardiovascular: regular rate, rhythm Extremities: + pertinent finding (dressing on left BKA amputation site. Right BKA well healed) Neurologic/Psychiatric: alert, normal mood/affect Skin: warm/dry, no rash Laboratory Results RUN DATE: 11/09/16 [facility] LAB PAGE 1 RUN TIME: 1411 Specimen Inquiry PATIENT: JIMMY DEL RIO LOC: [facility]ita U # : [id number] AGE/SX: 51/F ROOM: [facility] REG : 11/06/[address]: Dom Ramos D.O. : 1965 BED: 1 DIS : STATUS: ADM Clif TLOC: SPEC #: [id number] FELY: 11/06/16-UNK STATUS: RES REQ #: [id number] RECD: 11/06/[address]: Dom Ramos D.O. SOURCE: DRAIN-DEEP ENTR: 11/06/16-[address]: Venkata Ricardo M.D. [facility] Charles Cottrell M.D. ORDERED: AER/NAVID CULTSMR COMMENTS: SPECIMEN SOURCE IS LEFT AMPUTATED STUMP Procedure Result Verified Site GRAM STAIN Final 11/07/16 RESULT NO EPITHELIAL CELLS NO WBCs SEEN NO ORGANISMS SEEN OR AER/NAVID CULT Preliminary 11/09/16-141 Organism 1 STAPHYLOCOCCUS AUREUS QUANITY FEW SENS SENSITIVITY TO FOLLOW ANAS NO ANAEROBES ISOLATED. 1. STAPHYLOCOCCUS AUREUS Target Route Dose RX AB Cost M.I.C. IQ ------ ----- ------ -- ------ -------- - ------ TRIMET/SULFA S <=0.5/ 9.5 * OXACILLIN S <=0.25 VANCOMYCIN S 2 ERYTHROMYCIN S <=0.5 TETRACYCLINE S <=4 CLINDAMYCIN S <=0.5 DAPTOMYCIN S <=0.5 S = SENSITIVE I = INTERMEDIATE R = RESISTANT Last 24 Hours Test 11/09/16 12:19 11/09/16 12:30 11/09/16 17:12 11/09/16 21:01 Bedside Glucose 128 mg/dl 122 mg/dl 188 mg/dl 25-Hydroxy Vitamin D Total 21.7 ng/ml Test 11/10/16 05:40 11/10/16 07:25 White Blood Count 5.85 K/uL Red Blood Count 3.67 M/uL Hemoglobin 10.7 g/dL Hematocrit 32.2 % Mean Corpuscular Volume 87.7 fL Mean Corpuscular Hemoglobin 29.2 pg Mean Corpuscular Hemoglobin Concent 33.2 g/dl RDW Standard Deviation 44.3 fL RDW Coefficient of Variation 13.9 % Platelet Count 204 K/uL Mean Platelet Volume 9.1 fL Bedside Glucose 222 mg/dl Assessment and Plan Patient with non-healing wound of the left BKA incision site now s/p revision. Culture from revision is growing MSSA. Patient has history of MRSA as well as Enterococcal infection of the left lower extremity prior to BKA. Because patient appears to have problems with wound healing and also has uncontrolled diabetes, recommend continuation of IV antibiotic therapy for at least one to two more weeks. Preferred therapy was to continue coverage for both MSSA and MRSA, but due to patient's allergy to Vancomycin and limited coverage of Daptomycin or Ceftaroline, will continue with MSSA coverage instead since her culture is growing MSSA only. Therefore, will change patient to IV Ancef. She will be ready for D/C on IV Ancef from ID perspective once cleared by ortho. She should follow up with me next week as well. Case reviewed and agree with above assessment.
--- NOTE | 2016-11-10 12:24 | Hospitalist Progress Note ---
Hospitalist Progress Note Date of Service Nov 10, 2016. (Briana Mo PA-C) Subjective Pt evaluation today including: conversation w/ patient, physical exam, chart review, lab review, review of inpatient medication list Patient complaining of mild to moderate pain in the left stump. It is getting better. She denies any nausea. Tolerating a diet. No abdominal pain. Passing gas, but still no bowel movements. Additional Comments: 6 system review negative. Please see pertinent positives in the history of present illness section. (Briana Mo PA-C) Objective Vital Signs Date Time Temp Pulse Resp B/P Pulse Ox O2 Delivery O2 Flow Rate FiO2 11/10/16 07:33 Room Air 11/10/16 07:30 36.8 67 16 122/68 95 Room Air 11/09/16 23:10 36.8 77 16 138/76 94 Room Air 11/09/16 20:24 71 128/75 11/09/16 20:20 Room Air 11/09/16 15:06 36.9 77 18 120/72 96 Room Air (Briana Mo PA-C) Physical Exam General Appearance: no apparent distress Eyes: EOMI Neck: no JVD Respiratory/Chest: lungs clear Cardiovascular: regular rate, rhythm Abdomen: normal bowel sounds, non tender, soft Extremities: + pertinent finding (dressing noted to the left lower extremity stump. Clean and intact. No erythema noted.) Neurologic/Psychiatric: no motor/sensory deficits, oriented x 3 Skin: warm/dry (Briana Mo PA-C) Laboratory Results Last 24 Hours Test 11/09/16 12:19 11/09/16 12:30 11/09/16 17:12 11/09/16 21:01 Bedside Glucose 128 mg/dl 122 mg/dl 188 mg/dl 25-Hydroxy Vitamin D Total 21.7 ng/ml Test 11/10/16 05:40 11/10/16 07:25 White Blood Count 5.85 K/uL Red Blood Count 3.67 M/uL Hemoglobin 10.7 g/dL Hematocrit 32.2 % Mean Corpuscular Volume 87.7 fL Mean Corpuscular Hemoglobin 29.2 pg Mean Corpuscular Hemoglobin Concent 33.2 g/dl RDW Standard Deviation 44.3 fL RDW Coefficient of Variation 13.9 % Platelet Count 204 K/uL Mean Platelet Volume 9.1 fL Bedside Glucose 222 mg/dl (Briana Mo, ADOLFO) Assessment and Plan This is a 51 yo F with PMHx with DM type 1.5 with severe insulin resistance, gastroparesis, GERD, morbid obesity but since lost 120 lbs, HTN, previous PE, hyperlipidemia, hypothyroidism, CAD s/p cardiac stent x 3 with chronic stable angina, PAD, diabetic neuropathy and anxiety. She is s/p revision of Left BKA secondary to chronic ulceration and previous left below knee amputation with dehiscence. Pt hx of nonhealing ulcer with wound dehiscence of the Left BKA that was originally completed Sep 2015. Right BKA was completed Oct 2013. On admission, changed antibiotics from Ancef IV, cipro PO and bactrim PO to Daptomycin IV and Zosyn IV to cover resistant organisms until the culture and sensitivity results return Now growing MSSA on wound culture S/p revision of Left BKA secondary to chronic ulceration/infection now debrided and previous left below knee amputation with dehiscence by Dr. Ramos. POD#4 - has been on cipro and bactrim since July - Appreciate IDs recommendations. DC home on IV Ancef for at least 1-2 weeks. Will need follow-up with infectious disease in one week HTN, CAD s/p stenting x 3, PAD, Chronic angina-no symptoms, doing well post-op. [employer] Technician is Dr. Peralta - Cont Imdur 60 mg BID, ASA 81mg daily, Crestor (is on this at home but is not on her home med list) - Cont Ranexa 1000 mg BID for chronic angina Hyperlipidemia - continue Crestor Dizziness-resolved DM I.5 with diabetic neuropathy and subsequent diabetic gastroparesis, severe insulin resistance, diabetic wounds s/p bilat BKAs- Pt takes Toujeo as outpatient. Last HgbA1C 15% in Oct 2016 up from 11% previously due to infection/ stress. Glucose stabilizing - Initially on insulin gtt (d/c'ed) - Cont Lantus 32 U BID - ISS with aggressive carb counting 1 unit/4 grams carbs and correction factor 15 with Accuchecks ACHS - Diabetic diet - Zofran and phenergan prn -upon d/c, Pt may continue her home dose of Toujeo, novolog with meals and insulin sliding scale with carb ration 1:1 -Patient counseled on doing a 2 hour postprandial blood glucose Vitamin D insufficiency -Vit D 3 2000 u daily -Vit D 2 50,000 u weekly on gastroparesis, GERD -continue pepcid and does take Dexilant at home -continue protonix while in house Hypothyroidism - Cont levothyroxine 112 mcg Anxiety - Xanax 1 mg TID DVT ppx: heparin SQ CODE STATUS: Full code DISPO -plan is to d/c home stable for d/c from a medical standpoint. Will continue to follow while in house (Briana Mo, PATipC) i personally examined pt and verified all dunbar points w A Chepe PAC probably going home today reiterated, discussed, and questioned her on how to check/interpret postprandial glucoses and vary carb coverage based on carb ratio + prior results of eating same types of food. she expressed understanding. vitals noted nad breathing unlabored DM - to try to better match carbs and insulin using postprandial glucoses to eval efficacy of insulin dosing. goal range postprandial ideally 100-150 D insufficiency - replace, repeat D level ~12wks, d/w pt otherwise as above and per ortho (Chao La D.Ki.)
[2016-11-10 15:11] VITALS: BP 150/75; PULSE 77; TEMP 36.8; O2SAT 97
[2016-11-10] MEDS ORDERED: DAPTOmycin IV 350 MG in SODIUM CHLORIDE 0.9% 50ML 50 ML IV SCH (16:00)
[2016-11-10] MEDS: CEFAZOLIN IV 1,000 MG in DEXTROSE 5% 50ML 50 ML IV SCH (16:05)
[2016-11-10] MEDS: MoRPHine SULFATE 2 MG/ML CARP IV PRN (19:54)
[2016-11-10] MEDS: SENNA 8.6 MG TAB PO SCH (21:13)
[2016-11-10] MEDS: FAMOTIDINE 20 MG TAB PO SCH (21:14)
[2016-11-10 23:45] VITALS: BP 136/71; PULSE 73; TEMP 37; O2SAT 96
[2016-11-11] MEDS: CEFAZOLIN IV 1,000 MG in DEXTROSE 5% 50ML 50 ML IV SCH ×2 (00:20→09:00)
[2016-11-11] MEDS: OXYCODONE HCL IR 5 MG TAB (IMMEDIATE RELEASE) PO PRN ×3 (00:21→11:58)
[2016-11-11] MEDS: MoRPHine SULFATE 2 MG/ML CARP IV PRN ×2 (02:21→09:47)
[2016-11-11] MEDS: LEVOTHYROXINE 112 MCG TAB PO SCH (06:10)
[2016-11-11] MEDS: ACETAMINOPHEN 500 MG TAB PO SCH (06:10)
[2016-11-11] MEDS: HEPARIN SOD 5000 UNIT/0.5 ML CARP SQ SCH (06:15)
[2016-11-11 06:40] LABS: HEMATOCRIT 32.2 % (37-47); MEAN CORPUSCULAR HGB CONC 32.9 g/dl (32-36); PLATELET COUNT 212 K/uL (130-400); RED BLOOD COUNT 3.66 M/uL (4.2-5.4); WHITE BLOOD COUNT 6.97 K/uL (4.8-10.8)
[2016-11-11 07:47] VITALS: BP 130/68; PULSE 72; TEMP 36.8; O2SAT 94
--- NOTE | 2016-11-11 08:15 | Orthopedic Progress Note ---
Orthopedic Progress Note Date of Service Nov 11, 2016. Subjective Post OP Day: 5 Reports: feeling well, pain controlled w PO medications, Denies: complaints Objective N/V intact, capillary refill less than 2 sec., incision C/D/I, A&O x3 Incision looks very good. No skin breakdown. No erythema or open areas. No drainage. Flap is soft. Dressing changed today. Date Time Temp Pulse Resp B/P Pulse Ox O2 Delivery O2 Flow Rate FiO2 11/11/16 07:47 36.8 72 16 130/68 94 Room Air 11/11/16 00:21 Room Air 11/10/16 23:45 37.0 73 16 136/71 96 Room Air 11/10/16 19:50 Room Air 11/10/16 17:03 Room Air 11/10/16 15:11 36.8 77 18 150/75 97 Room Air Laboratory Results 24 Hours: Test 11/11/16 05:20 Hematocrit 32.2 % Hemoglobin 10.6 g/dL Assessment & Plan Assessment: POD #5 s/p Left Tibia: Revision Left Below the Knee Amputation, Debridement Ulcer and Application of Plasma Rich Protein - Dressing changed today -currently on IV Ancef IV Daptomycin 350 mg daily x 2 wks recommended by ID. Copay for Daptomycin at home is astronomical. Change to Ancef Q8 hours. Patient is able to head home today with IV antibiotics set up. D/C home today with follow up in 7-9 days for wound check. Anticoagulation- has h/o of PE, restarted Heparin SQ last evening. Pain Management- currently pain well controlled w/ current regimen DM I.5 with diabetic neuropathy and subsequent diabetic gastroparesis, severe insulin resistance, diabetic wounds s/p bilat BKAs- Pt takes Toujeo as outpatient. Last HgbA1C 15% in Oct 2016 up from 11% previously due to infection/ stress - Cont Lantus 32 U BID and insulin gtt, recalculate total daily dose tomorrow- appreciate Pharmacy help - ISS with Accuchecks ACHS - Diabetic diet - Zofran and phenergan prn Inhouse Planning Pain Management: Morphine, Oxy IR DVT Prophylaxis: ASA, Heparin Drip Discharge Planning Discharge Planning: home with home health Pain Management: Percocet DVT Prophylaxis: ASA
[2016-11-11] MEDS ORDERED: KFZAV1 IV (08:18)
[2016-11-11] MEDS ORDERED: CHOLECALCIFEROL 1000 INTER.UNIT TAB PO SCH (09:00)
[2016-11-11] MEDS: ALPRAZOLAM 0.5 MG TAB PO SCH (09:01)
[2016-11-11] MEDS: LACTOBACILLUS ACIDOPHILUS (FLORANEX) TAB PO SCH (09:01)
[2016-11-11] MEDS: ISOSORBIDE MONONITRATE 60 MG TABCR PO SCH (09:01)
[2016-11-11] MEDS: DOCUSATE SODIUM 100 MG CAP PO SCH (09:01)
[2016-11-11] MEDS: RANOLAZINE 500 MG ER TAB PO SCH (09:01)
[2016-11-11] MEDS: ASPIRIN 81 MG ECTAB PO SCH (09:01)
[2016-11-11] MEDS: MULTIVITAMIN TAB PO SCH (09:02)
[2016-11-11] MEDS: PANTOprazole SOD 40 MG TAB PO SCH (09:02)
[2016-11-11] MEDS: ROSUVASTATIN CALCIUM 20 MG TAB PO SCH (09:02)
[2016-11-11] MEDS: INSULIN GLARGINE SOLOSTAR 100 UNITS/ML 3 ML PEN SC SCH (09:04)
[2016-11-11] MEDS: INSULIN ASPART 100 UNITS/ML 3 ML PEN SC SCH (09:05)
[2016-11-11 10:49] VITALS: BP 130/68; PULSE 72; TEMP 36.8; O2SAT 94
--- NOTE | 2016-11-20 14:32 | Discharge Summary ---
Orthopedic Discharge Summary Admission Date/Reason Nov 06, 2016 at 11:00 Left Knee Ulcer S/P Below The Knee Amputation. Discharge Date/Disposition Nov 11, 2016 Home with services Diagnosis Principal Diagnosis: left knee ulcer s/p BKA Procedure(s) Performed revision left BKA and I & D BKA Consultations Medicine ID Medication Reconciliation New Medications: Cefazolin Sod (Cefazolin Sodium) 1 Gm Inj 1000 MG IV Q8 for 14 Days, 0 Refills Cholecalciferol (Vitamin D) 2,000 Unit Cap 1 CAP PO DAILY, #30 TAB Ergocalciferol (Drisdol) 50,000 Unit Cap 1 CAP PO WK, #6 CAP Oxycodone/Acetaminophen 5MG/325MG (Percocet 5MG/325MG) Tab 1-2 TABLETS PO Q4H PRN for Pain, #60 TAB Continued Medications: Alprazolam (Xanax) 1 Mg Tab 1 MG PO TID, TAB Aspirin (Aspirin Ec) 81 Mg Tab 81 MG PO QAM Famotidine (Pepcid) 20 Mg Tab 20 MG PO HS, TAB PT INTERCHANGES WITH ZANTAC AND PRILOSEC Insulin Glargine (Toujeo Solostar) 300 Unit/Ml Inj 32 UNITS SC BID PATIENT REPORTS TAKES 10 AM & 10 PM Isosorbide Mononitrate (Imdur) 30 Mg Tab 60 MG PO BID Levothyroxine Sodium (Synthroid) 112 Mcg Tab 112 MCG PO QAM, TAB Ondansetron Hcl (Zofran) 4 Mg Tab 4-8 MG PO Q6H PRN for Nausea Ranolazine (Ranexa) 1,000 Mg Tab 1000 MG PO BID Sennosides-Docusate Sodium (Stool Softener) 1 Tab Tab 2 TAB PO HS PRN for Constipation Discontinued Medications: Ciprofloxacin Tab (Cipro) 250 Mg Tab 1000 MG PO QAM, TAB Oxycodone Hcl (Oxycodone Hcl) 10 Mg Tab 1 TAB PO QID PRN for Pain, TAB Sulfa/Trimethoprim (Bactrim Ds 800MG/160MG) Tab 1 TAB PO BID, TAB Admission Physical Exam As per Admitting History & Physical. Hospital Course The patient was admitted and underwent the revision BKA on the left side. She progressed well from the BKA standpoint. Medicine worked daily to control the patient's blood sugars. Once her blood sugars were under control and the proper antibiotic choice was made, the patient was d/c'd home with a PICC line for ABX therapy. Discharge Instructions Please refer to the electronic Patient Visit Report (Discharge Instructions) for additional information. ACTIVITY RECOMMENDATIONS: Limitations: No weight bearing to affected limb at all times. SPECIAL CARE INSTRUCTIONS: * Some drainage onto the dressing is normal and is no cause for alarm. * Some swelling is natural especially after walking. * When resting, keep your foot elevated above the level of your heart. * Call [facility] if you notice: -Increased drainage -Fever over 101 degrees F -Severe constant pain BANDAGE: * Leave bandage/cast in place unless otherwise directed. * Keep bandage/cast dry at all times. FOLLOW UP VISIT WITH DR. JAMES If appointment is not already scheduled: Please call [facility] after you get home today to schedule a follow-up appointment for [address] James at .
== END 2016-11-11 12:21 | disposition home health service (06) ==
LOC: ENRESERVDT → ENRESERVTM → C.ACU 10:04 → C.3E 11:00
PROVIDERS: ADMIT Orthopaedic Surgery Sports Medicine; ATTEND Orthopaedic Surgery Sports Medicine
DX: T87.81 Dehiscence of amputation stump (principal); T87.44 Infection of amputation stump, left lower extremity; L97.929 Non-pressure chronic ulcer of unspecified part of left lower leg with unspecified severity; B95.61 Methicillin susceptible Staphylococcus aureus infection as the cause of diseases classified elsewhere; E55.9 Vitamin D deficiency, unspecified; I10 Essential (primary) hypertension; E11.51 Type 2 diabetes mellitus with diabetic peripheral angiopathy without gangrene; E11.43 Type 2 diabetes mellitus with diabetic autonomic (poly)neuropathy; I25.118 Atherosclerotic heart disease of native coronary artery with other forms of angina pectoris; E78.00 Pure hypercholesterolemia, unspecified; E03.9 Hypothyroidism, unspecified; F41.9 Anxiety disorder, unspecified; K21.9 Gastro-esophageal reflux disease without esophagitis; E78.5 Hyperlipidemia, unspecified; Z51.81 Encounter for therapeutic drug level monitoring; Z79.899 Other long term (current) drug therapy; Z79.4 Long term (current) use of insulin; Z79.02 Long term (current) use of antithrombotics/antiplatelets; Z79.82 Long term (current) use of aspirin; Z89.512 Acquired absence of left leg below knee; Z89.511 Acquired absence of right leg below knee; Z86.19 Personal history of other infectious and parasitic diseases; Z86.14 Personal history of Methicillin resistant Staphylococcus aureus infection; Z88.1 Allergy status to other antibiotic agents; Z95.5 Presence of coronary angioplasty implant and graft; Z86.711 Personal history of pulmonary embolism; Z83.3 Family history of diabetes mellitus; Y83.5 Amputation of limb(s) as the cause of abnormal reaction of the patient, or of later complication, without mention of misadventure at the time of the procedure
CPT/HCPCS: 0232T; 27886

== ENCOUNTER 2016-12-22 18:35 | Emergency (ER) | payer OTHER ==
[~2016-12-22] VITALS: Ht 172.7 cm; Wt 87.8 kg
[~2016-12-22 18:35] MED LIST changes: -BUPIVACAINE/EPINEPHRINE 0.25% 1:200,000 30 ML VIAL ONE; -BUPIVACAINE/EPINEPHRINE 0.5% MPF 1:200,000 30 ML VIAL ONE; -CEFAZOLIN 2000 MG/60 ML D5W IV SCH; +CHOL200010 PO; -CIPR1TAB11 PO; -DEXAMETHASONE SOD INJ 4 MG/ML VIAL ONE; +ERGO50002 PO; -FENTANYL CITRATE INJ 50 MCG/1 ML 2 ML VIAL ONE; -INSU100I SC; +KFZAV1 IV; -LACTATED RINGER'S 1000ML IV SCH; -MAGN1SOL7 PO; -MIDAZOLAM HCL 1 MG/ML 2ML VIAL ONE; -OXYC-164 PO; +OXYC-57 PO; -SCOPOLAMINE 1.5 MG TDSY TD SCH; -SULF800T23 PO
[2016-12-22 18:48] VITALS: TEMP 37.4; Ht 172.7 cm; Wt 87.8 kg
[2016-12-22] MEDS ORDERED: PROM25TA16 PO (21:05)
[2016-12-22] MEDS ORDERED: OXYC-164 PO (21:05)
[2016-12-22] MEDS ORDERED: ISOS60TA25 PO (21:06)
[2016-12-22 21:32] LABS: BASO % 0.2 %; BASO ABS # 0.02 K/uL (0-0.2); COMPLETE YES; HEMATOCRIT 36.7 % (37-47); IG% 0.4 %; LYMPH % 21.2 %; LYMPH ABS # 2.34 K/uL (1.2-3.4); MEAN CORPUSCULAR HEMOGLOBIN 30.1 pg (25-34); MEAN CORPUSCULAR HGB CONC 35.4 g/dl (32-36); MEAN PLATELET VOLUME 8.9 fL (7.4-10.4); NEUT % 73.2 %; PLATELET COUNT 271 K/uL (130-400); RED BLOOD COUNT 4.32 M/uL (4.2-5.4); WHITE BLOOD COUNT 11.06 K/uL (4.8-10.8)
--- NOTE | 2016-12-22 21:55 | DIAGNOSTIC IMAGING REPORT ---
LEFT LOWER EXTREMITY VENOUS DOPPLER HISTORY: Left leg swelling. COMPARISON STUDY: None. FINDINGS: There is normal compressibility, flow, and augmentation within the visualized left lower extremity deep venous system. Of note, the patient has a left below knee amputation. IMPRESSION: No DVT within the visualized left lower extremity. Electronically signed by: Abdiaziz Stanton M.D. 12/22/2016 9:54 PM Dictated Date/Time: 12/22/2016 9:53 PM
[2016-12-22 21:56] LABS: BUN/CREATININE RATIO 19.2 (10-20); CALCIUM 8.6 mg/dl (8.5-10.1); CREATININE 0.62 mg/dl (0.60-1.20); POTASSIUM 3.8 mmol/L (3.5-5.1)
--- NOTE | 2016-12-22 21:57 | DIAGNOSTIC IMAGING REPORT ---
LEFT EXTREMITY NONVASCULAR LIMITED ultrasound CLINICAL HISTORY: Left leg red and swollen COMPARISON STUDY: None. FINDINGS: There is a left below knee amputation. At the resection site/stump there is a 2.3 x 1.8 x 1.7 cm subcutaneous complex fluid collection. This abuts the skin surface. The surrounding subcutaneous fat is slightly echogenic. IMPRESSION: At the patient's below-knee amputation there is a 2.3 x 1.8 x 1.7 cm complex subcutaneous fluid collection. This likely represents an abscess. Electronically signed by: Abdiaziz Stanton M.D. 12/22/2016 9:56 PM Dictated Date/Time: 12/22/2016 9:54 PM
[2016-12-22 22:07] LABS: BETA-HYDROXYBUTYRATE 4.04 mg/dL (0.2-2.81)
[2016-12-22] MEDS ORDERED: LIDOCAINE/EPINEPHRINE 1% 20 ML VIAL INFIL ONE (22:30)
[2016-12-22 22:36] VITALS: BP 158/90; PULSE 90; O2SAT 96
[2016-12-22] MEDS ORDERED: CEPH500C PO (22:41)
[2016-12-22] MEDS ORDERED: CEPHALEXIN MONOHYDRATE 250 MG CAP PO ONE (22:45)
[2016-12-22] MEDS ORDERED: SULFAMETHOXAZOLE/TRIMETHOPRIM DS 800/160MG TAB PO ONE (22:45)
--- NOTE | 2016-12-23 02:23 | EMERGENCY ROOM VISIT NOTE ---
History Report prepared by Santana: Claude Vick Under the Supervision of: Dr. Chao Chamorro D.O. First contact with patient: 20:25 Chief Complaint: OTHER COMPLAINT Stated Complaint: HEMAOTMA LEFT STUMP, S/P 7WKS REVISION History of Present Illness The patient is a 51 year old female who presents to the Emergency Room with complaints of worsening pain and swelling in her left leg, along an incision site. The patient had the amputation of her left leg revised in November of this year, 6 weeks prior to arrival. She just had the stitches removed a couple days prior to arrival. Over the last couple days the patient's incision site has become painful, swollen, and warm to the touch. She noted that the incision was draining some clear liquid this afternoon. The patient does have a history of blood clots, and is on baby Aspirin. She is a diabetic. Pt denies headache, change in vision, fevers, chest pain, shortness of breath, nausea, vomiting, diarrhea, pain with urination, and melena. 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 A total of 10 systems reviewed and were otherwise negative. Past Medical & Surgical Medical Problems: (1) Diabetes (2) Diabetic ulcer (3) Exostosis (4) HTN (hypertension) (5) Painful amputation stump (6) Pulmonary embolism (7) Sepsis Surgical Problems: (1) H/O: (2) Hx of BKA Family History Diabetes mellitus Social History Smoking Status: Never Smoker Alcohol Use: none Drug Use: none Marital Status: Housing Status: lives with family Occupation Status: disabled Current/Historical Medications Scheduled Alprazolam (Xanax), 1 MG PO TID Aspirin (Aspirin Ec), 81 MG PO QAM Cephalexin Monohydrate (Keflex), 500 MG PO QID Cholecalciferol (Vitamin D), 1 CAP PO DAILY Insulin Glargine (Toujeo Solostar), 32 UNITS SC BID Isosorbide Mononitrate Ext Rel (Imdur Ext Rel), 60 MG PO BID Levothyroxine Sodium (Synthroid), 112 MCG PO QAM Ranolazine (Ranexa), 1,000 MG PO BID Scheduled PRN Famotidine (Pepcid), 20 MG PO HS PRN for Heartburn Ondansetron Hcl (Zofran), 4-8 MG PO Q6H PRN for Nausea Oxycodone Hcl (Oxycodone Hcl), 10 MG PO Q6 PRN for Pain Promethazine HCl (Promethazine HCl), 25 MG PO Q6 PRN for Nausea or Vomiting Sennosides-Docusate Sodium (Stool Softener), 2 TAB PO HS PRN for Constipation Allergies Coded Allergies: Butorphanol (Verified Allergy, Severe, SHORTNESS OF BREATH, 12/22/16) Spironolactone (Verified Allergy, Mild, RASH, 12/22/16) Atorvastatin (Verified Allergy, Unknown, RASH, 12/22/16) Fenofibrate (Verified Allergy, Unknown, RASH, 12/22/16) Vancomycin (Verified Adverse Reaction, Mild, RASH-DEVYN SYNDROME, 12/22/16 ) red man syndrome Physical Exam Vital Signs Date Time Temp Pulse Resp B/P Pulse Ox O2 Delivery O2 Flow Rate FiO2 12/22/16 22:36 90 20 158/90 96 Room Air 12/22/16 18:48 37.4 91 18 168/91 97 Room Air Physical Exam GENERAL: Sitting up in bed, well appearing, well nourished, no distress, non- toxic EYE EXAM: normal conjunctiva OROPHARYNX: no exudate, no erythema, lips, buccal mucosa, and tongue normal and mucous membranes are moist NECK: supple, no nuchal rigidity, no adenopathy, non-tender LUNGS: Clear to auscultation. Normal chest wall mechanics HEART: no murmurs, S1 normal and S2 normal ABDOMEN: abdomen soft, non-tender, normo-active bowel sounds, no masses, no rebound or guarding. BACK: Back is symmetrical on inspection and there is no deformity, no midline tenderness, no CVA tenderness. SKIN: no rashes and no bruising UPPER EXTREMITIES: upper extremities are grossly normal. LOWER EXTREMITIES: Bilateral BKA with left incision clean dry and intact in the LLE. Left stump is slightly larger than the right, mild redness and fluctuance along the lateral aspect of the incision. NEURO EXAM: Normal sensorium, cranial nerves II-XII grossly intact, normal speech, no gross weakness of arms. Medical Decision & Procedures ER Provider Diagnostic Interpretation: Xray results per the radiologist and my interpretation. Other results have been interpreted by the radiologist and reviewed by me. LEFT EXTREMITY NONVASCULAR LIMITED ultrasound CLINICAL HISTORY: Left leg red and swollen COMPARISON STUDY: None. FINDINGS: There is a left below knee amputation. At the resection site/stump there is a 2.3 x 1.8 x 1.7 cm subcutaneous complex fluid collection. This abuts the skin surface. The surrounding subcutaneous fat is slightly echogenic. IMPRESSION: At the patient's below-knee amputation there is a 2.3 x 1.8 x 1.7 cm complex subcutaneous fluid collection. This likely represents an abscess. Electronically signed by: Abdiaziz Stanton M.D. 12/22/2016 9:56 PM Dictated Date/Time: 12/22/2016 9:54 PM LEFT LOWER EXTREMITY VENOUS DOPPLER HISTORY: Left leg swelling. COMPARISON STUDY: None. FINDINGS: There is normal compressibility, flow, and augmentation within the visualized left lower extremity deep venous system. Of note, the patient has a left below knee amputation. IMPRESSION: No DVT within the visualized left lower extremity. Electronically signed by: Abdiaziz Stanton M.D. 12/22/2016 9:54 PM Dictated Date/Time: 12/22/2016 9:53 PM Laboratory Results 12/22/16 21:15 Red Blood Count 4.32, Mean Corpuscular Volume 85.0, Mean Corpuscular Hemoglobin 30.1, Mean Corpuscular Hemoglobin Concent 35.4, Mean Platelet Volume 8.9, Neutrophils (%) (Auto) 73.2, Lymphocytes (%) (Auto) 21.2, Monocytes (%) (Auto) 4.0, Eosinophils (%) (Auto) 1.0, Basophils (%) (Auto) 0.2, Neutrophils # (Auto) 8.11, Lymphocytes # (Auto) 2.34, Monocytes # (Auto) 0.44, Eosinophils # (Auto) 0.11, Basophils # (Auto) 0.02 12/22/16 21:15 Test 12/22/16 21:15 White Blood Count 11.06 K/uL (4.8-10.8) Red Blood Count 4.32 M/uL (4.2-5.4) Hemoglobin 13.0 g/dL (12.0-16.0) Hematocrit 36.7 % (37-47) Mean Corpuscular Volume 85.0 fL (80-100) Mean Corpuscular Hemoglobin 30.1 pg (25-34) Mean Corpuscular Hemoglobin Concent 35.4 g/dl (32-36) Platelet Count 271 K/uL (130-400) Mean Platelet Volume 8.9 fL (7.4-10.4) Neutrophils (%) (Auto) 73.2 % Lymphocytes (%) (Auto) 21.2 % Monocytes (%) (Auto) 4.0 % Eosinophils (%) (Auto) 1.0 % Basophils (%) (Auto) 0.2 % Neutrophils # (Auto) 8.11 K/uL (1.4-6.5) Lymphocytes # (Auto) 2.34 K/uL (1.2-3.4) Monocytes # (Auto) 0.44 K/uL (0.11-0.59) Eosinophils # (Auto) 0.11 K/uL (0-0.5) Basophils # (Auto) 0.02 K/uL (0-0.2) RDW Standard Deviation 40.5 fL (36.4-46.3) RDW Coefficient of Variation 13.1 % (11.5-14.5) Immature Granulocyte % (Auto) 0.4 % Immature Granulocyte # (Auto) 0.04 K/uL (0.00-0.02) Anion Gap 11.0 mmol/L (3-11) Est Creatinine Clear Calc Drug Dose 127.3 ml/min Estimated GFR () 122.7 Estimated GFR (Non- 105.9 BUN/Creatinine Ratio 19.2 (10-20) Calcium Level 8.6 mg/dl (8.5-10.1) Beta-Hydroxybutyric Acid 4.04 mg/dL (0.2-2.81) Laboratory results per my review. Medications Administered Medications (Trade) Dose Ordered Sig/Ochoa Route Start Time Stop Time Status Last Admin Dose Admin Cephalexin Monohydrate (Keflex Cap) 500 mg NOW ONCE PO 12/22/16 22:45 12/22/16 22:46 DC 12/22/16 22:44 500 MG Trimethoprim/ Sulfamethoxazole (Septra Ds 800/ 160MG Tab) 1 tab NOW ONCE PO 12/22/16 22:45 12/22/16 22:46 DC 12/22/16 22:44 1 TAB Heparin Sodium (Porcine) (Heparin 100 Unit/ml 5ml Flush) 5 ml STK-MED ONCE .ROUTE 12/22/16 22:37 12/22/16 22:40 DC 12/22/16 22:37 5 ML Procedure Incision & Drainage Indication: Abscess. Location: lateral portion of left stump Verbal consent was obtained after the risks and benefits were explained, including but not limited to bleeding, scarring, infection, pain, and bone/joint /nerve damage. At this time, the risks of the procedure are less than the risks of NOT performing the procedure. A time out was taken and the correct patient and site identified. The skin was prepped with betadine and a sterile field set. The wound was anesthetized with 2 ml of 1% lidocaine without epinephrine. 4 mL of blood was removed with 18 gauge needle. Detailed wound care instructions and signs and symptoms of worsening infection reviewed with the patient. No complications and the patient tolerated the procedure well. ED Course ED COURSE: Vital signs were reviewed and showed normal vitals The patients medical record was reviewed The above diagnostic studies were performed and reviewed. ED treatments and interventions as stated above. 2033: The patient was evaluated in room B2. A complete history and physical examination was performed. 0: I checked on the patient at this time, she is doing well and going to CT. 8: I discussed the case with Dr. Hatch at this time. He thinks it is an abscess and that it is reasonable for me to drain at this time. 2230: Ordered Lidocaine 20 mL INFIL. 2231: I performed an I&D on the patient at this time, please see procedural note for further details. 2238: Upon reevaluation, the patient is feeling well after the I&D procedure.I discussed my findings with the patient and she understands and agrees with the treatment plan. Based on the patients age, coexisting illnesses, exam and lab findings the decision to treat as an outpatient was made. The patient remained stable while under my care. The patient appeared well at the time of discharge. Medical Decision Differential diagnosis: Etiologies such as cellulitis, abscess, MRSA infection, DVT, necrotizing fasciitis, dermatitis, drug eruption, as well as others were entertained. The patient's history was concerning for swelling and redness of the skin. Patient had surgery for a BKA of her left lower extremity this past November. She presents today for redness and swelling distal portion of her stump. It is focal in nature. She has mild surrounding erythema. Ultrasound of the leg shows no DVTs. Ultrasound of the fluctuance shows complex fluid collection. I discussed this with orthopedics and they felt it was reasonable to aspirate it. I removed 4 mL of dark blood. This is sent for culture. She was placed on Keflex instructed take her home dose of Bactrim until she follows up with orthopedics. Referred to give her antibiotics as she did have surrounding erythema to the loculated fluid collection. Patient also had hyperglycemia. She notes that she will take her insulin when she gets home. Discussed with Pt concerning signs and symptoms to watch out for. Pt was instructed to follow up with their PCP and discussed with the patient their option to return to the ED at anytime for persistent or worsening symptoms. The appropriate anticipatory guidance and out-patient management, including indications for return to the emergency department, were explained at length to the patient and understood. Consults Time Called: 2155 Consulting Physician: Dr. Hatch - Orthopedic Surgery Returned Call: [phone] I discussed the case with Dr. Hatch at this time. He thinks it is an abscess and that it is reasonable for me to drain at this time. Impression Primary Impression: Hematoma Additional Impression: Hyperglycemia Scribe Attestation The scribe's documentation has been prepared under my direction and personally reviewed by me in its entirety. I confirm that the note above accurately reflects all work, treatment, procedures, and medical decision making performed by me. Departure Information Dispostion Home / Self-Care Prescriptions Cephalexin Monohydrate (Keflex) 500 Mg Cap 500 MG PO QID, #28 CAP Prov: Chao Chamorro, DO 12/22/16 Referrals Charles Montiel M.D. (PCP) Forms HOME CARE DOCUMENTATION FORM, IMPORTANT VISIT INFORMATION, WORK / SCHOOL INSTRUCTIONS Patient Instructions [facility] Additional Instructions Please follow up with orthopedics with in the next 24 hours. Any worsening of your symptoms, please return to the ED immediately. This includes spreading of the redness around the wound, fevers greater than 100.4, or any other concerning signs or symptoms from your standpoint. Please take antibiotics as prescribed the next 7 days. Problem Qualifiers
== END 2016-12-22 23:00 | disposition home or self-care (01) ==
LOC: C.EDB 18:37
DX: T87.89 Other complications of amputation stump (principal); Y83.5 Amputation of limb(s) as the cause of abnormal reaction of the patient, or of later complication, without mention of misadventure at the time of the procedure; E11.65 Type 2 diabetes mellitus with hyperglycemia; Z86.711 Personal history of pulmonary embolism; I10 Essential (primary) hypertension; Z79.4 Long term (current) use of insulin; Z88.1 Allergy status to other antibiotic agents

== ENCOUNTER 2017-02-26 15:28 | Inpatient (IN) | payer OTHER ==
[~2017-02-26] VITALS: Ht 162.6 cm; Wt 85.3 kg
[~2017-02-26 15:28] MED LIST changes: +CEPH500C PO; -ERGO50002 PO; -ISOS30TA13 PO; +ISOS60TA25 PO; -KFZAV1 IV; +OXYC-164 PO; -OXYC-57 PO; +PROM25TA16 PO
[2017-02-26] MEDS ORDERED: CONSULT PHARMACY STA (16:28)
[2017-02-26] MEDS ORDERED: ACETAMINOPHEN 325 MG TAB PO PRN (16:30)
[2017-02-26] MEDS ORDERED: ONDANSETRON 4 MG TAB PO PRN (16:30)
[2017-02-26] MEDS ORDERED: FAMOTIDINE 20 MG TAB PO PRN (16:30)
[2017-02-26] MEDS ORDERED: ALUMINUM/MAGNESIUM SUSP 30 ML UDC PO PRN (16:30)
[2017-02-26] MEDS ORDERED: MAGNESIUM HYDROXIDE SUSP 30 ML UDC PO PRN (16:30)
[2017-02-26] MEDS ORDERED: DOCUSATE SODIUM/SENNA 50/8.6MG TAB PO PRN (16:30)
[2017-02-26] MEDS ORDERED: ZOLPIDEM TARTRATE 5 MG TAB PO PRN (16:30)
[2017-02-26 16:59] VITALS: BP 103/68; PULSE 74; TEMP 37.7; O2SAT 97; BMI 41.9; BMI 47.3
[2017-02-26 17:04] LABS: HEMATOCRIT 36.7 % (37-47); MEAN CORPUSCULAR HEMOGLOBIN 28.4 pg (25-34); MEAN CORPUSCULAR HGB CONC 33.8 g/dl (32-36); MEAN PLATELET VOLUME 8.5 fL (7.4-10.4); PLATELET COUNT 337 K/uL (130-400); RED BLOOD COUNT 4.37 M/uL (4.2-5.4); WHITE BLOOD COUNT 7.88 K/uL (4.8-10.8)
[2017-02-26 17:26] LABS: BLOOD UREA NITROGEN 31 mg/dl (7-18); BUN/CREATININE RATIO 20.5 (10-20); CARBON DIOXIDE 27 mmol/L (21-32); CHLORIDE 93 mmol/L (98-107); GLUCOSE 254 mg/dl (70-99); POTASSIUM 3.4 mmol/L (3.5-5.1); SODIUM 129 mmol/L (136-145)
[2017-02-26] MEDS: OXYCODONE HCL IR 5 MG TAB (IMMEDIATE RELEASE) PO PRN (17:58)
--- NOTE | 2017-02-26 17:59 | HISTORY & PHYSICAL EXAMINATION ---
DATE OF ADMISSION: 02/26/2017 CHIEF COMPLAINT: Left lower leg ulceration. HISTORY OF PRESENT ILLNESS: This is a patient who has a history of bilateral below the knee amputations. Most recently she had an I\T\D and closure of a wound dehiscence of the left BKA stump. This procedure was done 2 weeks ago on 02/12/2017. She was followed 1 week postop and the wound was doing very well, all sutures are intact, the flap well approximated. Today she was seen in our office with the central portion of the wound appearing to dehisce with moderate amounts of serosanguineous fluid. There is no purulence noted. There is mild to moderate erythema around this open area. She is also noted to have ecchymosis over the tibial tubercle of the left leg. It was felt that admission to the hospital for IV antibiotic treatment and eventually possible I\T\D and closure once again at the central portion of the flap may be needed. PAST MEDICAL HISTORY: Diabetes, treated with insulin, hypertension, history of pulmonary embolism, history of sepsis, hypercholesterolemia, hypothyroidism, coronary artery disease with cardiac stents x3, peripheral artery disease, diabetic neuropathy and anxiety. CURRENT MEDICATIONS: Coreg, aspirin, vitamins C, alprazolam, levothyroxine, isosorbide, Pepcid, and insulin. PAST SURGICAL HISTORY: Bilateral below-knee amputations, hysterectomy, cholecystectomy, small-bowel obstruction surgery, and coronary artery stents. SOCIAL HISTORY: The patient denies alcohol and tobacco use. ALLERGIES: SPIRONOLACTONE, VANCOMYCIN AND BUTORPHANOL. FAMILY HISTORY: Noncontributory. OBJECTIVE PHYSICAL EXAMINATION: GENERAL: The patient is alert and oriented x3. She is no acute distress. She is a well-dressed, well-nourished 51-year-old female. Her affect is appropriate. CARDIOVASCULAR: Heart has a regular rhythm and rate without murmurs. LUNGS: Clear to auscultation bilaterally. LYMPHATICS: No evidence of any swollen lymph nodes. MUSCULOSKELETAL: The patient is non-weightbearing in a wheelchair. Upon inspection of the left lower extremity, she is noted to have healing flap of her left below-knee amputation at the medial and lateral aspects of the flap, sutures are all intact. The central portion of the flap, there is noted to be wound dehiscence with exposed tissue with moderate amount of serosanguineous drainage at the central aspect of the wound. There is mild erythema noted. There is ecchymosis noted over the tibial tubercle. There is no fluctuance noted. There is no purulence noted. ASSESSMENT AND DIAGNOSES: 1. Two weeks status post incision and drainage and closure of left [id number] amputation wound dehiscence. 2. Wound dehiscence central aspect of the flap left [id number] amputation with cellulitis. PLAN: Above assessment was discussed with the patient. At this time it was felt the patient should be admitted to [facility] for IV daptomycin and also for medical management. Will start the patient on IV daptomycin and consult infectious disease for evaluation for proper antibiotic choice and follow with the patient throughout the stay. We will also consult medicine for controlling the patient's diabetes and her other medical history. She will be followed along on a daily basis for evaluation of repeat I\T\D versus return home on either IV or p.o. antibiotics if the infection will calm down.
[2017-02-26] MEDS ORDERED: PHARMACY GLYCEMIC MGMT CONSULT PRN (18:00)
[2017-02-26] MEDS ORDERED: DAPTOMYCIN CONSULT ACTIVE PRN ×2 (18:00)
[2017-02-26] MEDS ORDERED: GLUCOSE 10 TABS/TUBE PO PRN (18:45)
[2017-02-26] MEDS ORDERED: DEXTROSE 50% 50 ML SYR IV PRN (18:45)
[2017-02-26] MEDS ORDERED: GLUCAGON FOR INJ 1 MG VIAL SQ PRN (18:45)
[2017-02-26] MEDS ORDERED: GLUCOSE 40% GEL 15 GM TUBE PO PRN (18:45)
[2017-02-26] MEDS ORDERED: POTASSIUM CHLORIDE 10 MEQ TABCR PO STA (18:52)
--- NOTE | 2017-02-26 18:53 | Medical Consult ---
Consultation Date of Consultation: Feb 26, 2017. Attending Physician: Dom Ramos D.O. Reason for Consultation: Medical management History of Present Illness 51 y/o F who was a direct admit earlier today by Dr. Ramos for wound dehiscence. Pt had a L BKA 09/2015. She required an I&D about 2 weeks ago and this has failed to heal. Pt states the area above her BKA is red and swollen for the last several days. She has pain related to this as well that has been helped by ice at home. She can feel the area rubbing on the bed and it is making her pain worse. She has not been eating much lately due to lack of appetite and mild nausea w/o emesis. No diarrhea or abd pain. No chest pain or SOB. She feels fatigued now "like you do when you are sick". Pt denies fever. ROS as noted above, otherwise neg. Past Medical/Surgical History Medical Problems: (1) Hematoma Status: Acute (2) Leg swelling Status: Acute DM with neuropathy, insulin requiring HTN HLD Hypothyroid CAD s/p stents x3 Hx of PE Hx of sepsis PAD Anxiety s/p L BKA 09/2015 and I&D 2 weeks ago s/p R BKA 10/2013 Family History Family history was reviewed; no changes noted. Social History Smoking Status: Never Smoker Alcohol Use: none Drug Use: none Marital Status: Housing Status: lives with family Occupation Status: disabled Allergies Coded Allergies: Butorphanol (Verified Allergy, Severe, SHORTNESS OF BREATH, 12/22/16) Spironolactone (Verified Allergy, Mild, RASH, 12/22/16) Atorvastatin (Verified Allergy, Unknown, RASH, 12/22/16) Fenofibrate (Verified Allergy, Unknown, RASH, 12/22/16) Vancomycin (Verified Adverse Reaction, Mild, RASH-DEVYN SYNDROME, 12/22/16 ) red man syndrome Current Inpatient Medications Current Inpatient Medications Medications (Trade) Dose Ordered Sig/Ochoa Route Start Time Stop Time Status Last Admin Dose Admin Alprazolam (Xanax Tab) 1 mg TID PO 02/26/17 21:00 03/28/17 20:59 Aspirin (Ecotrin Tab) 81 mg QAM PO 02/27/17 09:00 03/29/17 08:59 Isosorbide Mononitrate (Imdur Ext Rel Tab) 60 mg BID PO 02/26/17 21:00 03/28/17 20:59 Levothyroxine Sodium (Synthroid Tab) 112 mcg DAILYBB PO 02/27/17 06:00 03/29/17 05:59 Ondansetron HCl (Zofran Tab) 4 mg Q6H PRN PO 02/26/17 16:30 03/28/17 16:29 Promethazine HCl (Phenergan Tab) 25 mg Q6 PRN PO 02/26/17 16:30 03/28/17 16:29 Senna/Docusate Sodium (Senokot S Tab) 2 tab HS PRN PO 02/26/17 16:30 03/28/17 16:29 Cholecalciferol (Vitamin D Tab) 2,000 inter.unit DAILY PO 02/27/17 09:00 03/29/17 08:59 Insulin Glargine (Lantus Solostar Pen) 32 unit BID SC 02/26/17 21:00 03/28/17 20:59 Ranolazine (Ranexa ER Tab) 1,000 mg BID PO 02/26/17 21:00 03/28/17 20:59 Oxycodone HCl 1 tab for pain rated 1-5 2 t... Q4 PRN PO 02/26/17 16:30 03/12/17 16:29 02/26/17 17:58 10 MG Daptomycin/Sodium Chloride (Cubicin IV/Nss 50ml) 60 ml @ 100 mls/hr DAILY@1900 IV 02/26/17 19:00 03/08/17 18:59 Ketorolac Tromethamine (Toradol Inj) 15 mg Q6 PRN IV. 02/26/17 16:30 03/01/17 16:29 Acetaminophen (Tylenol Tab) 650 mg Q6H PRN PO 02/26/17 16:30 03/28/17 16:29 Diphenhydramine HCl (Benadryl Cap) 25 mg Q8 PRN PO 02/26/17 16:30 03/28/17 16:29 Zolpidem Tartrate (Ambien Tab) 5 mg HSZ PRN PO 02/26/17 16:30 03/28/17 16:29 Al Hydroxide/Mg Hydroxide (Maalox Susp) 30 ml Q6H PRN PO 02/26/17 16:30 03/28/17 16:29 Docusate Sodium (coLACE CAP) 100 mg BID PO 02/26/17 21:00 03/28/17 20:59 Ranitidine HCl (zANTac TAB) 150 mg BID PO 02/26/17 21:00 03/28/17 20:59 Pantoprazole Sodium (Protonix Tab) 40 mg QAM PO 02/27/17 09:00 03/29/17 08:59 Magnesium Hydroxide 30 ml 30 ml Q6H PRN PO 02/26/17 16:30 03/28/17 16:29 Sodium Chloride (Nss 1000ml) 1,000 ml @ 75 mls/hr [id number] IV 02/26/17 16:28 03/28/17 16:27 Daptomycin (Consult) 1 ea UD PRN N/A 02/26/17 18:00 03/28/17 17:59 Miscellaneous Information (Consult Glycemic Management Pharmacy) 1 ea UD PRN N/A 02/26/17 18:00 03/28/17 17:59 Insulin Aspart (novoLOG ASPART) SLIDING SCALE ACHS SC 02/26/17 18:15 03/28/17 18:14 Glucose (Glucose 40% Gel) 15-30 GRAMS 15 GRAMS... UD PRN PO 02/26/17 18:45 03/28/17 18:44 Glucose (Glucose Chew Tab) 4-8 Tablets 4 Tabl... UD PRN PO 02/26/17 18:45 03/28/17 18:44 Dextrose (Dextrose 50% 50ML Syringe) 25-50ML OF 50% DW IV FOR... UD PRN IV 02/26/17 18:45 03/28/17 18:44 Glucagon (Glucagon Inj) 1 mg UD PRN SQ 02/26/17 18:45 03/28/17 18:44 Insulin Aspart (novoLOG ASPART) SLIDING SCALE DAILY@0200 SC 02/27/17 02:00 03/29/17 01:59 Physical Exam Date Time Temp Pulse Resp B/P Pulse Ox O2 Delivery O2 Flow Rate FiO2 02/26/17 16:59 37.7 74 16 103/68 Room Air 02/26/17 16:59 37.7 74 16 103/68 97 Room Air General Appearance: WD/WN, no apparent distress Head: normocephalic, atraumatic Respiratory/Chest: normal breath sounds, no respiratory distress Cardiovascular: regular rate, rhythm, normal peripheral pulses Abdomen/GI: non tender, soft Extremities/Musculoskelatal: + pedal edema (on the L proximal to bandaging, R is WNL) Neurologic/Psych: alert, oriented x 3 Skin: warm/dry, + pertinent finding (mild L LE redness above bandaging ) Laboratory Results Last 24 Hours Test 02/26/17 16:55 White Blood Count 7.88 K/uL Red Blood Count 4.37 M/uL Hemoglobin 12.4 g/dL Hematocrit 36.7 % Mean Corpuscular Volume 84.0 fL Mean Corpuscular Hemoglobin 28.4 pg Mean Corpuscular Hemoglobin Concent 33.8 g/dl RDW Standard Deviation 38.2 fL RDW Coefficient of Variation 12.5 % Platelet Count 337 K/uL Mean Platelet Volume 8.5 fL Sodium Level 129 mmol/L Potassium Level 3.4 mmol/L Chloride Level 93 mmol/L Carbon Dioxide Level 27 mmol/L Anion Gap 9.0 mmol/L Blood Urea Nitrogen 31 mg/dl Creatinine 1.50 mg/dl Estimated GFR () 46.9 Estimated GFR (Non- 40.5 BUN/Creatinine Ratio 20.5 Random Glucose 254 mg/dl Calcium Level 9.0 mg/dl Assessment & Plan 51 y/o F who was a direct admit on 02/[address] Ramos for wound dehiscence s/p I &D 2 weeks ago Wound dehiscence: as per ortho Requesting ice and pillow prop, nursing aware DM: Insulin as at home BS is elevated today in the setting of infection A1c 05/2016 is quite elevated at 13.7, repeat pending Suspect she will need adjustments to her insulin ARF: In the setting of infection and poor PO intake IVF and monitor Baseline renal function is WNL HypoK: Replace x1 and monitor HTN and CAD s/p stents: continue home meds Hx of PE: No SOB or chest pain with LE swelling and redness likely related to wound dehiscence VSS
--- NOTE | 2017-02-26 18:58 | Pharmacy Progress Note ---
Glycemic: Assessment & Plan Date of Service Feb 26, 2017. Assessment & Plan Item Value Date Time Random Glucose 254 mg/dl H 02/26/17 1655 Home Diabetes Regimen: * Toujeo 32 units subq BID @ 1000/2200. Pt obtains samples from physician's office. She confirms she uses Toujeo BID * Humalog SSI: Average 10 units with lunch, 15 units with dinner, 20 units with HS * Average ~ 100 units day PLAN: Pt is a bilat BKA with left BKA wound. POD #0. Pt reports she took her full dose of Toujeo 32 units this am. Toujeo is non-formulary, will transition to Lantus sub-q with this ADM. I changed diet to Type-II diabetic diet. * Basal insulin: Lantus 32 units every 12 hours, give 16 units for BSG < 120mg/dL * Correctional Insulin: Novolog Correction per scale ACHS & 0200 Goal Range: Low 120 mg/dL - High 160 mg/dL Correction Factor: 20 mg/dL/unit * Prandial insulin: Per carb ratio of 1 unit per 8 grams CHO consumed Pharmacy will continue to monitor patient daily and write orders per [facility] inpatient glycemic control protocol. Thanks. * Please note that the plan above was derived based on current level of insulin resistance and hospital stress. These recommendations are appropriate for inpatient admission only. Plan of care upon discharge will need to be reassessed to avoid potential outpatient hypo/hyperglycemia.
[2017-02-26] MEDS: INSULIN ASPART 100 UNITS/ML 3 ML PEN SC SCH ×2 (19:14→21:17)
[2017-02-26] MEDS: SODIUM CHLORIDE 0.9% 1000ML 1,000 ML IV SCH (19:16)
[2017-02-26] MEDS: DAPTOmycin IV 500 MG in SODIUM CHLORIDE 0.9% 50ML 50 ML IV SCH (19:17)
[2017-02-26] MEDS: ALPRAZOLAM 0.5 MG TAB PO SCH (21:12)
[2017-02-26] MEDS: PROMETHAZINE HCL 25 MG TAB PO PRN (21:12)
[2017-02-26] MEDS: RANITIDINE HCL 150 MG TAB PO SCH (21:13)
[2017-02-26] MEDS: DOCUSATE SODIUM 100 MG CAP PO SCH (21:13)
[2017-02-26] MEDS: ISOSORBIDE MONONITRATE 60 MG TABCR PO SCH (21:13)
[2017-02-26] MEDS: RANOLAZINE 500 MG ER TAB PO SCH (21:13)
[2017-02-26] MEDS: INSULIN GLARGINE SOLOSTAR 100 UNITS/ML 3 ML PEN SC SCH (21:16)
[2017-02-26 23:55] VITALS: BP 90/52; PULSE 63; TEMP 36.7; O2SAT 95
[2017-02-27] MEDS: KETOROLAC TROMETHAMINE 15 MG/ML VIAL IV. PRN ×3 (00:19→14:05)
[2017-02-27] MEDS: INSULIN ASPART 100 UNITS/ML 3 ML PEN SC SCH ×6 (02:19→21:40)
[2017-02-27] MEDS: LEVOTHYROXINE 112 MCG TAB PO SCH (06:04)
[2017-02-27] MEDS: SODIUM CHLORIDE 0.9% 1000ML 1,000 ML IV SCH ×2 (06:05→18:43)
[2017-02-27 06:54] VITALS: BP 93/57; PULSE 58; TEMP 36.4; O2SAT 96
[2017-02-27 07:00] LABS: BUN/CREATININE RATIO 23.3 (10-20); CALCIUM 8.2 mg/dl (8.5-10.1); CREATININE 1.6 mg/dl (0.60-1.20); POTASSIUM 3.4 mmol/L (3.5-5.1)
[2017-02-27 07:02] VITALS: BP 72/40
[2017-02-27 07:08] LABS: ESTIMATED AVERAGE GLUCOSE 341 mg/dl; HA1C FLAG Normal (Normal)
[2017-02-27 07:09] VITALS: BP 106/62; PULSE 62
[2017-02-27] MEDS: RANOLAZINE 500 MG ER TAB PO SCH ×2 (09:21→20:15)
[2017-02-27] MEDS: PANTOprazole SOD 40 MG TAB PO SCH (09:21)
[2017-02-27] MEDS: ISOSORBIDE MONONITRATE 60 MG TABCR PO SCH ×2 (09:21→21:40)
[2017-02-27] MEDS: CHOLECALCIFEROL 1000 INTER.UNIT TAB PO SCH (09:22)
[2017-02-27] MEDS: ASPIRIN 81 MG ECTAB PO SCH (09:22)
[2017-02-27] MEDS: RANITIDINE HCL 150 MG TAB PO SCH ×2 (09:22→21:40)
[2017-02-27] MEDS: INSULIN GLARGINE SOLOSTAR 100 UNITS/ML 3 ML PEN SC SCH ×3 (09:26→21:40)
[2017-02-27] MEDS: ALPRAZOLAM 0.5 MG TAB PO SCH ×3 (09:43→21:40)
[2017-02-27] MEDS: DOCUSATE SODIUM 100 MG CAP PO SCH ×2 (09:43→21:43)
--- NOTE | 2017-02-27 10:08 | Orthopedic Progress Note ---
Orthopedic Progress Note Date of Service Feb 27, 2017. Subjective Reports: feeling well, pain controlled w PO medications, Denies: SOB, calf pain , chest pain, complaints, light headedness, nausea / vomiting Additional Notes: On IV dapto 2 wks post op Lt BKA Objective dressing C/D/I, A&O x3 Left stump dehisced mid incision approx 1-1.5 cm in diameter, bloody yellow drainage present but not actively draining, mild erythema. Date Time Temp Pulse Resp B/P Pulse Ox O2 Delivery O2 Flow Rate FiO2 02/27/17 07:09 62 106/62 02/27/17 07:02 72/40 02/27/17 06:54 36.4 58 17 93/57 96 Room Air 02/27/17 00:15 Room Air 02/26/17 23:55 36.7 63 16 90/52 95 Room Air 02/26/17 19:00 Room Air 02/26/17 16:59 37.7 74 16 103/68 Room Air 02/26/17 16:59 37.7 74 16 103/68 97 Room Air Laboratory Results 24 Hours: Test 02/26/17 16:55 Hematocrit 36.7 % Hemoglobin 12.4 g/dL Assessment & Plan Assessment: 2 wks post op left BKA with post op wound dehiscence Plan: IV dapto for now, await ID input Per Dr. Ramos for possible revision, discussed with Dr. Toussaint this AM. Wound care. Pain control. Inhouse Planning Pain Management: Toradol, Oxy IR DVT Prophylaxis: ASA Discharge Planning Discharge Planning: uncertain
[2017-02-27] MEDS: OXYCODONE HCL IR 5 MG TAB (IMMEDIATE RELEASE) PO PRN ×2 (12:44→17:43)
[2017-02-27] MEDS ORDERED: POTASSIUM CHLORIDE 20 MEQ TABCR PO ONE (13:15)
--- NOTE | 2017-02-27 13:18 | Pharmacy Progress Note ---
Glycemic: Assessment & Plan Date of Service Feb 27, 2017. Assessment & Plan Assessment * BSG's ranging 213-328 since admission. * Hesitant to increase Lantus despite elevated AM fasting as this would increase above home dose. * Will significantly tighten both correction factor and carb ratio to address hyperglycemia. * Will continue 0200 BSG check as BSG's all above 200 mg/dL. If both dinner and HS checks are below 200 mg/dL, may consider eliminating Plan * Basal insulin: Lantus 32 units every 12 hours (half dose for BSG < 120 mg/dL) * Correctional Insulin: Novolog Correction per scale ACHS Goal Range: Low 140 mg/dL - High 180 mg/dL Correction Factor: 10 mg/dL/unit * Prandial insulin: Per carb ratio of 1 unit per 5 grams CHO consumed Pharmacy will continue to monitor patient daily and write orders per [facility] inpatient glycemic control protocol. Thanks. * Please note that the plan above was derived based on current level of insulin resistance and hospital stress. These recommendations are appropriate for inpatient admission only. Plan of care upon discharge will need to be reassessed to avoid potential outpatient hypo/hyperglycemia.
--- NOTE | 2017-02-27 14:49 | Family Medicine Progress Note ---
Progress Note Date of Service Feb 27, 2017. Subjective Pt seen and examined at bedside. No acute events overnight. Pain at amputation site especially w/ manipulation of dressing. Pt reports sugars run in the 300s at home and she isn't concerned unless in the 400s, which happens irregularly. She is adherent to her regimen, however the regimen regularly changes 2/2 inability to afford a regular rx, so she is forced to use whatever samples are available. Reports no fever, CP/SOB, palpitations, paresthesias, KASPER, lightheadedness, nausea/vomiting. Constitutional: No chills, No fatigue, No fever, No sweats Respiratory: No cough, No shortness of breath, No wheezing Cardiovascular: No chest pain, No edema, No palpitations Abdomen: No constipation, No diarrhea, No nausea, No pain, No vomiting Medications Current Inpatient Medications Medications (Trade) Dose Ordered Sig/Ochoa Route Start Time Stop Time Status Last Admin Dose Admin Alprazolam (Xanax Tab) 1 mg TID PO 02/26/17 21:00 03/28/17 20:59 02/27/17 14:05 1 MG Aspirin (Ecotrin Tab) 81 mg QAM PO 02/27/17 09:00 03/29/17 08:59 02/27/17 09:22 81 MG Isosorbide Mononitrate (Imdur Ext Rel Tab) 60 mg BID PO 02/26/17 21:00 03/28/17 20:59 02/27/17 09:21 60 MG Levothyroxine Sodium (Synthroid Tab) 112 mcg DAILYBB PO 02/27/17 06:00 03/29/17 05:59 02/27/17 06:04 112 MCG Ondansetron HCl (Zofran Tab) 4 mg Q6H PRN PO 02/26/17 16:30 03/28/17 16:29 Promethazine HCl (Phenergan Tab) 25 mg Q6 PRN PO 02/26/17 16:30 03/28/17 16:29 02/26/17 21:12 25 MG Senna/Docusate Sodium (Senokot S Tab) 2 tab HS PRN PO 02/26/17 16:30 03/28/17 16:29 Cholecalciferol (Vitamin D Tab) 2,000 inter.unit DAILY PO 02/27/17 09:00 03/29/17 08:59 02/27/17 09:22 2,000 INTER.UNIT Ranolazine (Ranexa ER Tab) 1,000 mg BID PO 02/26/17 21:00 03/28/17 20:59 02/27/17 09:21 1,000 MG Oxycodone HCl 1 tab for pain rated 1-5 2 t... Q4 PRN PO 02/26/17 16:30 03/12/17 16:29 02/27/17 12:44 10 MG Daptomycin/Sodium Chloride (Cubicin IV/Nss 50ml) 60 ml @ 100 mls/hr DAILY@1900 IV 02/26/17 19:00 03/08/17 18:59 02/26/17 19:17 100 MLS/HR Ketorolac Tromethamine (Toradol Inj) 15 mg Q6 PRN IV. 02/26/17 16:30 03/01/17 16:29 02/27/17 14:05 15 MG Acetaminophen (Tylenol Tab) 650 mg Q6H PRN PO 02/26/17 16:30 03/28/17 16:29 Diphenhydramine HCl (Benadryl Cap) 25 mg Q8 PRN PO 02/26/17 16:30 03/28/17 16:29 Zolpidem Tartrate (Ambien Tab) 5 mg HSZ PRN PO 02/26/17 16:30 03/28/17 16:29 Al Hydroxide/Mg Hydroxide (Maalox Susp) 30 ml Q6H PRN PO 02/26/17 16:30 03/28/17 16:29 Docusate Sodium (coLACE CAP) 100 mg BID PO 02/26/17 21:00 03/28/17 20:59 02/27/17 09:43 100 MG Ranitidine HCl (zANTac TAB) 150 mg BID PO 02/26/17 21:00 03/28/17 20:59 02/27/17 09:22 150 MG Pantoprazole Sodium (Protonix Tab) 40 mg QAM PO 02/27/17 09:00 03/29/17 08:59 02/27/17 09:21 40 MG Magnesium Hydroxide 30 ml 30 ml Q6H PRN PO 02/26/17 16:30 5/28/17 16:29 Sodium Chloride (Nss 1000ml) 1,000 ml @ 75 mls/hr [id number] IV 02/26/17 16:28 03/28/17 16:27 02/27/17 06:05 75 MLS/HR Daptomycin (Consult) 1 ea UD PRN N/A 02/26/17 18:00 03/28/17 17:59 Miscellaneous Information (Consult Glycemic Management Pharmacy) 1 ea UD PRN N/A 02/26/17 18:00 03/28/17 17:59 Insulin Aspart (novoLOG ASPART) SLIDING SCALE ACHS SC 02/26/17 18:15 03/28/17 18:14 02/27/17 12:48 22 UNITS Glucose (Glucose 40% Gel) 15-30 GRAMS 15 GRAMS... UD PRN PO 02/26/17 18:45 03/28/17 18:44 Glucose (Glucose Chew Tab) 4-8 Tablets 4 Tabl... UD PRN PO 02/26/17 18:45 03/28/17 18:44 Dextrose (Dextrose 50% 50ML Syringe) 25-50ML OF 50% DW IV FOR... UD PRN IV 02/26/17 18:45 03/28/17 18:44 Glucagon (Glucagon Inj) 1 mg UD PRN SQ 02/26/17 18:45 03/28/17 18:44 Insulin Aspart (novoLOG ASPART) SLIDING SCALE DAILY@0200 VA 02/27/17 02:00 03/29/17 01:59 02/27/17 02:19 9 UNITS Heparin Sodium (Porcine) (Heparin 100 Unit/ml 5ml Flush) 5 ml PRN PRN IV 02/27/17 07:15 03/29/17 07:14 Insulin Glargine (Lantus Solostar Pen) BID SC 02/27/17 21:00 03/29/17 20:59 Objective Vital Signs Date Time Temp Pulse Resp B/P Pulse Ox O2 Delivery O2 Flow Rate FiO2 02/27/17 08:30 Room Air 02/27/17 07:09 62 106/62 02/27/17 07:02 72/40 02/27/17 06:54 36.4 58 17 93/57 96 Room Air 02/27/17 00:15 Room Air 02/26/17 23:55 36.7 63 16 90/52 95 Room Air 02/26/17 19:00 Room Air 02/26/17 16:59 37.7 74 16 103/68 Room Air 02/26/17 16:59 37.7 74 16 103/68 97 Room Air Physical Exam General Appearance: WD/WN, no apparent distress Respiratory/Chest: chest non-tender, lungs clear, normal breath sounds, no respiratory distress Cardiovascular: regular rate, rhythm, no edema, no murmur Abdomen: normal bowel sounds, non tender, soft, no organomegaly Extremities: + pertinent finding (b/l LE amputation w/ dishiscence of wound site on the left dressing C/D/I) Neurologic/Psychiatric: no motor/sensory deficits, alert, normal mood/affect, oriented x 3 Skin: normal color, warm/dry, no rash Laboratory Results 02/26/17 16:55 02/27/17 06:03 Test 02/26/17 16:55 02/27/17 06:03 02/27/17 12:14 Red Blood Count 4.37 M/uL (4.2-5.4) Mean Corpuscular Volume 84.0 fL (80-100) Mean Corpuscular Hemoglobin 28.4 pg (25-34) Mean Corpuscular Hemoglobin Concent 33.8 g/dl (32-36) RDW Standard Deviation 38.2 fL (36.4-46.3) RDW Coefficient of Variation 12.5 % (11.5-14.5) Mean Platelet Volume 8.5 fL (7.4-10.4) Anion Gap 9.0 mmol/L (3-11) Est Creatinine Clear Calc Drug Dose 55.6 ml/min Estimated GFR () 43.4 Estimated GFR (Non- 37.4 BUN/Creatinine Ratio 23.3 (10-20) Estimated Average Glucose 341 mg/dl Hemoglobin A1c 13.5 % (4.5-5.6) Calcium Level 8.2 mg/dl (8.5-10.1) Bedside Glucose 213 mg/dl (70-90) Assessment and Plan 51 y/o female h/o DMII presents w/ wound dihiscence s/p I&D 2 wks ago for medical management Wound dehiscence - management per primary team DMII, uncontrolled - A1c > 13 - will contact case management for assistance in providing outpatient insulin regimen with some regularly - diabetic education - glycemic control consult at present, will likely adjust basal insulin up by coverage amount div 2 ARF - trend BMP, avoid nephrotoxic medications Hypokalemia - replete today, trend BMP HTN and CAD s/p stents: continue home meds
[2017-02-27 15:07] VITALS: BP 100/55; PULSE 68; TEMP 36.5; O2SAT 96
[2017-02-27] MEDS: PROMETHAZINE HCL 25 MG TAB PO PRN (15:30)
[2017-02-27] MEDS: DAPTOmycin IV 500 MG in SODIUM CHLORIDE 0.9% 50ML 50 ML IV SCH (18:43)
[2017-02-27 20:16] VITALS: BP 127/71; PULSE 84; O2SAT 97
[2017-02-27 23:35] VITALS: BP 117/71; PULSE 75; TEMP 36.6; O2SAT 95
[2017-02-28] MEDS: OXYCODONE HCL IR 5 MG TAB (IMMEDIATE RELEASE) PO PRN ×4 (00:19→21:48)
[2017-02-28] MEDS: KETOROLAC TROMETHAMINE 15 MG/ML VIAL IV. PRN (02:40)
[2017-02-28] MEDS: INSULIN ASPART 100 UNITS/ML 3 ML PEN SC SCH ×5 (02:42→20:55)
[2017-02-28] MEDS: LEVOTHYROXINE 112 MCG TAB PO SCH (06:41)
--- NOTE | 2017-02-28 06:42 | Medical Consult ---
Consultation Date of Consultation: Feb 27, 2017. Attending Physician: Dom Ramos D.O. Reason for Consultation: left BKA wound infection History of Present Illness 51-year-old female with history of poorly-controlled diabetes mellitus, status post bilateral BKA days, who was admitted approximately 2 weeks ago with dehiscence of left BKA site. She underwent incision and drainage and eventual wound closure, with cultures at that time growing a methicillin sensitive Staph aureus. she was treated with IV cefazolin with improvement, and was seen 1 week ago as an outpatient with good wound healing at that time. However over the last several days developed dehiscence of the left BKA site with serous drainage. No report of fever. She was seen and sent for admission for IV antibiotics and possible repeat surgical intervention. She has been started on IV daptomycin empirically. Blood glucose has been poorly controlled, offers no other new systemic complaints. Past Medical/Surgical History Medical Problems: (1) Hematoma Status: Acute (2) Leg swelling Status: Acute Medical Problems: (1) BKA stump complication (2) Diabetes (3) Diabetic ulcer (4) Exostosis (5) HTN (hypertension) (6) Painful amputation stump (7) Pulmonary embolism (8) Sepsis (9) Wound dehiscence, surgical Surgical Problems: (1) H/O: (2) Hx of BKA Family History Diabetes mellitus Social History Smoking Status: Never Smoker Alcohol Use: none Drug Use: none Marital Status: Housing Status: lives with family Occupation Status: disabled Allergies Coded Allergies: Butorphanol (Verified Allergy, Severe, SHORTNESS OF BREATH, 12/22/16) Spironolactone (Verified Allergy, Mild, RASH, 12/22/16) Atorvastatin (Verified Allergy, Unknown, RASH, 12/22/16) Fenofibrate (Verified Allergy, Unknown, RASH, 12/22/16) Vancomycin (Verified Adverse Reaction, Mild, RASH-DEVYN SYNDROME, 12/22/16 ) red man syndrome Current Inpatient Medications Current Inpatient Medications Medications (Trade) Dose Ordered Sig/Ochoa Route Start Time Stop Time Status Last Admin Dose Admin Alprazolam (Xanax Tab) 1 mg TID PO 02/26/17 21:00 03/28/17 20:59 02/27/17 21:40 1 MG Aspirin (Ecotrin Tab) 81 mg QAM PO 02/27/17 09:00 03/29/17 08:59 02/27/17 09:22 81 MG Isosorbide Mononitrate (Imdur Ext Rel Tab) 60 mg BID PO 02/26/17 21:00 03/28/17 20:59 02/27/17 21:40 60 MG Levothyroxine Sodium (Synthroid Tab) 112 mcg DAILYBB PO 02/27/17 06:00 03/29/17 05:59 02/27/17 06:04 112 MCG Ondansetron HCl (Zofran Tab) 4 mg Q6H PRN PO 02/26/17 16:30 03/28/17 16:29 Promethazine HCl (Phenergan Tab) 25 mg Q6 PRN PO 02/26/17 16:30 03/28/17 16:29 02/27/17 15:30 25 MG Senna/Docusate Sodium (Senokot S Tab) 2 tab HS PRN PO 02/26/17 16:30 03/28/17 16:29 Cholecalciferol (Vitamin D Tab) 2,000 inter.unit DAILY PO 02/27/17 09:00 03/29/17 08:59 02/27/17 09:22 2,000 INTER.UNIT Ranolazine (Ranexa ER Tab) 1,000 mg BID PO 02/26/17 21:00 03/28/17 20:59 02/27/17 20:15 1,000 MG Oxycodone HCl 1 tab for pain rated 1-5 2 t... Q4 PRN PO 02/26/17 16:30 03/12/17 16:29 02/28/17 00:19 10 MG Daptomycin/Sodium Chloride (Cubicin IV/Nss 50ml) 60 ml @ 100 mls/hr DAILY@1900 IV 02/26/17 19:00 03/08/17 18:59 02/27/17 18:43 100 MLS/HR Ketorolac Tromethamine (Toradol Inj) 15 mg Q6 PRN IV. 02/26/17 16:30 03/01/17 16:29 02/28/17 02:40 15 MG Acetaminophen (Tylenol Tab) 650 mg Q6H PRN PO 02/26/17 16:30 03/28/17 16:29 Diphenhydramine HCl (Benadryl Cap) 25 mg Q8 PRN PO 02/26/17 16:30 03/28/17 16:29 Zolpidem Tartrate (Ambien Tab) 5 mg HSZ PRN PO 02/26/17 16:30 03/28/17 16:29 Al Hydroxide/Mg Hydroxide (Maalox Susp) 30 ml Q6H PRN PO 02/26/17 16:30 03/28/17 16:29 Docusate Sodium (coLACE CAP) 100 mg BID PO 02/26/17 21:00 03/28/17 20:59 02/27/17 21:43 100 MG Ranitidine HCl (zANTac TAB) 150 mg BID PO 02/26/17 21:00 03/28/17 20:59 02/27/17 21:40 150 MG Pantoprazole Sodium (Protonix Tab) 40 mg QAM PO 02/27/17 09:00 03/29/17 08:59 02/27/17 09:21 40 MG Magnesium Hydroxide 30 ml 30 ml Q6H PRN PO 02/26/17 16:30 03/28/17 16:29 Sodium Chloride (Nss 1000ml) 1,000 ml @ 75 mls/hr [id number] IV 02/26/17 16:28 03/28/17 16:27 02/27/17 18:43 75 MLS/HR Daptomycin (Consult) 1 ea UD PRN N/A 02/26/17 18:00 03/28/17 17:59 Miscellaneous Information (Consult Glycemic Management Pharmacy) 1 ea UD PRN N/A 02/26/17 18:00 03/28/17 17:59 Insulin Aspart (novoLOG ASPART) SLIDING SCALE ACHS SC 02/26/17 18:15 03/28/17 18:14 02/27/17 12:48 22 UNITS Glucose (Glucose 40% Gel) 15-30 GRAMS 15 GRAMS... UD PRN PO 02/26/17 18:45 03/28/17 18:44 Glucose (Glucose Chew Tab) 4-8 Tablets 4 Tabl... UD PRN PO 02/26/17 18:45 03/28/17 18:44 Dextrose (Dextrose 50% 50ML Syringe) 25-50ML OF 50% DW IV FOR... UD PRN IV 02/26/17 18:45 5/28/17 18:44 Glucagon (Glucagon Inj) 1 mg UD PRN SQ 02/26/17 18:45 03/28/17 18:44 Insulin Aspart (novoLOG ASPART) SLIDING SCALE DAILY@0200 SC 02/27/17 02:00 03/29/17 01:59 02/28/17 02:42 14 UNITS Heparin Sodium (Porcine) (Heparin 100 Unit/ml 5ml Flush) 5 ml PRN PRN IV 02/27/17 07:15 03/29/17 07:14 Insulin Glargine (Lantus Solostar Pen) BID SC 02/27/17 21:00 03/29/17 20:59 Review of Systems Constitutional: + fatigue, + weakness, No fever Eyes: No problem reported ENT: No problem reported Respiratory: No problem reported Cardiovascular: No problem reported Abdomen: No problem reported Musculoskeletal: + problem reported ( see HPI) Genitourinary - Female: No problem reported Neurologic: No problem reported Psychiatric: No problem reported Endocrine: No problem reported Integumentary: + new/changing skin lesions Allergic / Immunologic: No problem reported Physical Exam Date Time Temp Pulse Resp B/P Pulse Ox O2 Delivery O2 Flow Rate FiO2 02/27/17 23:35 36.6 75 16 117/71 95 Room Air 02/27/17 20:16 84 16 127/71 97 Room Air 02/27/17 19:40 Room Air 02/27/17 15:58 Room Air 02/27/17 15:07 36.5 68 16 100/55 96 02/27/17 08:30 Room Air 02/27/17 07:09 62 106/62 02/27/17 07:02 72/40 02/27/17 06:54 36.4 58 17 93/57 96 Room Air General Appearance: WD/WN, no apparent distress Head: normocephalic, atraumatic Eyes: normal inspection, EOMI, sclerae normal ENT: normal ENT inspection, pharynx normal Neck: supple, no adenopathy, thyroid normal, trachea midline Respiratory/Chest: chest non-tender, lungs clear, normal breath sounds, no respiratory distress Cardiovascular: regular rate, rhythm, no gallop, no murmur Abdomen/GI: normal bowel sounds, non tender, soft, no organomegaly Back: normal inspection, no CVA tenderness Extremities/Musculoskelatal: + inflammation, + pertinent finding ( bilateral BKA site, left BKA with wound dehiscence, serous drainage, with area of ecchymosis) Neurologic/Psych: + pertinent finding Skin: + pertinent finding Lymphatic: + pertinent finding Laboratory Results Last 24 Hours Test 02/27/17 08:11 02/27/17 12:14 02/27/17 16:59 02/27/17 20:33 Bedside Glucose 213 mg/dl 213 mg/dl 116 mg/dl 346 mg/dl Test 02/27/17 20:36 02/28/17 02:20 02/28/17 05:51 Bedside Glucose 342 mg/dl 367 mg/dl Assessment & Plan 51-year-old female with poorly controlled diabetes mellitus, now with recurrent wound dehiscence at left BKA site. Previous culture positive for methicillin sensitive Staph aureus, but agree with use of daptomycin given possibility for new infection with resistant Staph. May require repeat incision and drainage, will discuss with all involved. Will follow.
[2017-02-28 06:53] LABS: CREATININE 0.83 mg/dl (0.60-1.20)
[2017-02-28 07:14] VITALS: BP 151/79; PULSE 74; TEMP 36.6; O2SAT 96
--- NOTE | 2017-02-28 07:28 | Orthopedic Progress Note ---
Orthopedic Progress Note Date of Service Feb 28, 2017. Subjective Reports: feeling well, Denies: SOB, chest pain, light headedness, nausea / vomiting Additional Notes: Pain main issue Objective dressing C/D/I, A&O x3 Date Time Temp Pulse Resp B/P Pulse Ox O2 Delivery O2 Flow Rate FiO2 02/28/17 07:14 36.6 74 17 151/79 96 Room Air 02/27/17 23:35 36.6 75 16 117/71 95 Room Air 02/27/17 20:16 84 16 127/71 97 Room Air 02/27/17 19:40 Room Air 02/27/17 15:58 Room Air 02/27/17 15:07 36.5 68 16 100/55 96 02/27/17 08:30 Room Air Assessment & Plan Assessment: 2 wks post op left BKA with post op wound dehiscence Plan: IV dapto for now, Appreciate ID input Per Dr. Ramos for possible revision, will consent and make NPO for poss surgery Wednesday. Wound care. Pain control. Appreciate medicine input. Inhouse Planning Pain Management: Toradol, Oxy IR DVT Prophylaxis: ASA Discharge Planning Discharge Planning: uncertain
[2017-02-28] MEDS: SODIUM CHLORIDE 0.9% 1000ML 1,000 ML IV SCH ×2 (08:15→21:42)
[2017-02-28] MEDS: INSULIN GLARGINE SOLOSTAR 100 UNITS/ML 3 ML PEN SC SCH ×2 (08:17→20:54)
[2017-02-28] MEDS: ALPRAZOLAM 0.5 MG TAB PO SCH ×3 (08:29→20:59)
[2017-02-28] MEDS: RANOLAZINE 500 MG ER TAB PO SCH ×2 (08:29→20:53)
[2017-02-28] MEDS: RANITIDINE HCL 150 MG TAB PO SCH ×2 (08:29→20:53)
[2017-02-28] MEDS: CHOLECALCIFEROL 1000 INTER.UNIT TAB PO SCH (08:29)
[2017-02-28] MEDS: ISOSORBIDE MONONITRATE 60 MG TABCR PO SCH ×2 (08:30→20:53)
[2017-02-28] MEDS ORDERED: INSULIN REGULAR 8 UNITS in SYRINGE 0 ML IV ONE (08:30)
[2017-02-28] MEDS: PANTOprazole SOD 40 MG TAB PO SCH (08:30)
[2017-02-28] MEDS: ASPIRIN 81 MG ECTAB PO SCH (08:30)
[2017-02-28] MEDS: DOCUSATE SODIUM 100 MG CAP PO SCH ×2 (08:30→20:53)
[2017-02-28] MEDS: MoRPHine SULFATE 2 MG/ML CARP IV PRN ×2 (09:16→12:14)
[2017-02-28 09:24] LABS: BASO % 0.2 %; BASO ABS # 0.01 K/uL (0-0.2); COMPLETE YES; EOS % 1.4 %; HEMATOCRIT 30.7 % (37-47); IG% 0.2 %; LYMPH % 35.4 %; LYMPH ABS # 2.03 K/uL (1.2-3.4); MEAN CELL VOLUME 84.3 fL (80-100); MEAN CORPUSCULAR HEMOGLOBIN 28.3 pg (25-34); MEAN CORPUSCULAR HGB CONC 33.6 g/dl (32-36); MEAN PLATELET VOLUME 8.6 fL (7.4-10.4); MONO % 6.1 %; NEUT % 56.7 %; PLATELET COUNT 294 K/uL (130-400); RED BLOOD COUNT 3.64 M/uL (4.2-5.4); WHITE BLOOD COUNT 5.73 K/uL (4.8-10.8)
[2017-02-28] MEDS ORDERED: NURSING VERBAL MED ORDER ONE ×2 (09:30→21:15)
[2017-02-28 10:12] LABS: CALCIUM 8.4 mg/dl (8.5-10.1); CREATININE 0.82 mg/dl (0.60-1.20); POTASSIUM 3.6 mmol/L (3.5-5.1)
--- NOTE | 2017-02-28 10:42 | Anesthesiology Progress Note ---
Anesthesia Progress Note Date of Service Feb 28, 2017. Progress Notes This is a pleasant 51 y/o w female w/juvenile IDDM(poorly controlled),HTN, Hyperlipidemia,Hx/o PE,Hypothyroidism,,CAD s/p PTCA/stents x3,angina,PVD, Diabetic PN and retinopathy,anemia and CKD. She presents for a Left BKA revision.Discussed anesthesia w/pt,risks vs benefits ,all questions answered.Informed consent obtained. Pt requests a femoral nerve block as she states this helps decrease her requirements for narcotics for p/op pain. She states she had this before and was quite satisfied w/nerve block efficacy.I told her this can be done.
--- NOTE | 2017-02-28 11:18 | Pharmacy Progress Note ---
Glycemic: Assessment & Plan Date of Service Feb 28, 2017. Assessment & Plan Assessment * BSG's >300 mg/dL overnight after loosening correction factor and carb ratio. Will tighten back to previous. * BSG of 333 mg/dL AM fasting. * Will give a small dose of IV insulin in addition to tightening Novolog. * Will not increase Lantus at this time as it was more than 50% of the total daily dose yesterday. Current dose is similar to home dose. Plan * Regular IV insulin: 8 units IV x1 to be given with AM Novolog * Basal insulin: Lantus 32 units every 12 hours - 1/2 dose for BSG < 120 mg/dL * Correctional Insulin: Novolog Correction per scale ACHS - continue 0200 check Goal Range: Low 140 mg/dL - High 180 mg/dL Correction Factor: 10 mg/dL/unit * Prandial insulin: Per carb ratio of 1 unit per 5 grams CHO consumed Pharmacy will continue to monitor patient daily and write orders per [facility] inpatient glycemic control protocol. Thanks. * Please note that the plan above was derived based on current level of insulin resistance and hospital stress. These recommendations are appropriate for inpatient admission only. Plan of care upon discharge will need to be reassessed to avoid potential outpatient hypo/hyperglycemia.
[2017-02-28] MEDS: PROMETHAZINE HCL 25 MG TAB PO PRN ×2 (13:53→21:47)
--- NOTE | 2017-02-28 14:12 | Family Medicine Progress Note ---
Progress Note Date of Service Feb 28, 2017. Subjective Pt seen and examined at bedside. Overnight, did have some spikes in FSBS. Today , complaining of nausea and epigastric discomfort following a hamburger for lunch which has been improved by her PRN phenergan. She feels her LLE pain ( aching, radiating to the mid thigh) is well controlled on her present regimen. She reports no fever, sensation changes, KASPER, CP/SOB, v/d/c, rashes/redness, lightheadedness Constitutional: No chills, No fever, No sweats Respiratory: No cough, No shortness of breath, No wheezing Cardiovascular: No chest pain, No edema, No palpitations Abdomen: + nausea, + pain, No constipation, No diarrhea, No vomiting Musculoskeletal: + joint pain, + muscle pain Medications Current Inpatient Medications Medications (Trade) Dose Ordered Sig/Ochoa Route Start Time Stop Time Status Last Admin Dose Admin Alprazolam (Xanax Tab) 1 mg TID PO 02/26/17 21:00 03/28/17 20:59 02/28/17 13:53 1 MG Aspirin (Ecotrin Tab) 81 mg QAM PO 02/27/17 09:00 03/29/17 08:59 02/28/17 08:30 81 MG Isosorbide Mononitrate (Imdur Ext Rel Tab) 60 mg BID PO 02/26/17 21:00 03/28/17 20:59 02/28/17 08:30 60 MG Levothyroxine Sodium (Synthroid Tab) 112 mcg DAILYBB PO 02/27/17 06:00 03/29/17 05:59 02/28/17 06:41 112 MCG Ondansetron HCl (Zofran Tab) 4 mg Q6H PRN PO 02/26/17 16:30 03/28/17 16:29 Promethazine HCl (Phenergan Tab) 25 mg Q6 PRN PO 02/26/17 16:30 03/28/17 16:29 02/28/17 13:53 25 MG Senna/Docusate Sodium (Senokot S Tab) 2 tab HS PRN PO 02/26/17 16:30 03/28/17 16:29 Cholecalciferol (Vitamin D Tab) 2,000 inter.unit DAILY PO 02/27/17 09:00 03/29/17 08:59 02/28/17 08:29 2,000 INTER.UNIT Ranolazine (Ranexa ER Tab) 1,000 mg BID PO 02/26/17 21:00 03/28/17 20:59 02/28/17 08:29 1,000 MG Oxycodone HCl 1 tab for pain rated 1-5 2 t... Q4 PRN PO 02/26/17 16:30 03/12/17 16:29 02/28/17 12:13 10 MG Daptomycin/Sodium Chloride (Cubicin IV/Nss 50ml) 60 ml @ 100 mls/hr DAILY@1900 IV 02/26/17 19:00 03/08/17 18:59 02/27/17 18:43 100 MLS/HR Ketorolac Tromethamine (Toradol Inj) 15 mg Q6 PRN IV. 02/26/17 16:30 03/01/17 16:29 Future Hold 02/28/17 02:40 15 MG Acetaminophen (Tylenol Tab) 650 mg Q6H PRN PO 02/26/17 16:30 03/28/17 16:29 Diphenhydramine HCl (Benadryl Cap) 25 mg Q8 PRN PO 02/26/17 16:30 03/28/17 16:29 Zolpidem Tartrate (Ambien Tab) 5 mg HSZ PRN PO 02/26/17 16:30 03/28/17 16:29 Al Hydroxide/Mg Hydroxide (Maalox Susp) 30 ml Q6H PRN PO 02/26/17 16:30 03/28/17 16:29 Docusate Sodium (coLACE CAP) 100 mg BID PO 02/26/17 21:00 03/28/17 20:59 02/28/17 08:30 100 MG Ranitidine HCl (zANTac TAB) 150 mg BID PO 02/26/17 21:00 03/28/17 20:59 02/28/17 08:29 150 MG Pantoprazole Sodium (Protonix Tab) 40 mg QAM PO 02/27/17 09:00 03/29/17 08:59 02/28/17 08:30 40 MG Magnesium Hydroxide 30 ml 30 ml Q6H PRN PO 02/26/17 16:30 03/28/17 16:29 Sodium Chloride (Nss 1000ml) 1,000 ml @ 75 mls/hr [id number] IV 02/26/17 16:28 03/28/17 16:27 02/28/17 08:15 75 MLS/HR Daptomycin (Consult) 1 ea UD PRN N/A 02/26/17 18:00 03/28/17 17:59 Miscellaneous Information (Consult Glycemic Management Pharmacy) 1 ea UD PRN N/A 02/26/17 18:00 03/28/17 17:59 Insulin Aspart (novoLOG ASPART) SLIDING SCALE ACHS SC 02/26/17 18:15 03/28/17 18:14 02/28/17 12:49 13 UNITS Glucose (Glucose 40% Gel) 15-30 GRAMS 15 GRAMS... UD PRN PO 02/26/17 18:45 03/28/17 18:44 Glucose (Glucose Chew Tab) 4-8 Tablets 4 Tabl... UD PRN PO 02/26/17 18:45 03/28/17 18:44 Dextrose (Dextrose 50% 50ML Syringe) 25-50ML OF 50% DW IV FOR... UD PRN IV 02/26/17 18:45 03/28/17 18:44 Glucagon (Glucagon Inj) 1 mg UD PRN SQ 02/26/17 18:45 03/28/17 18:44 Insulin Aspart (novoLOG ASPART) SLIDING SCALE DAILY@0200 TX 02/27/17 02:00 03/29/17 01:59 02/28/17 02:42 14 UNITS Heparin Sodium (Porcine) (Heparin 100 Unit/ml 5ml Flush) 5 ml PRN PRN IV 02/27/17 07:15 03/29/17 07:14 Insulin Glargine (Lantus Solostar Pen) BID SC 02/27/17 21:00 03/29/17 20:59 02/28/17 08:17 32 UNIT Morphine Sulfate (MoRPHine SULFATE INJ) 2 mg Q2H PRN IV 02/28/17 07:45 03/14/17 07:44 02/28/17 12:14 2 MG Objective Vital Signs Date Time Temp Pulse Resp B/P Pulse Ox O2 Delivery O2 Flow Rate FiO2 02/28/17 14:16 36.7 74 18 119/66 96 Room Air 02/28/17 08:00 Room Air 02/28/17 07:14 36.6 74 17 151/79 96 Room Air 02/27/17 23:35 36.6 75 16 117/71 95 Room Air 02/27/17 20:16 84 16 127/71 97 Room Air 02/27/17 19:40 Room Air 02/27/17 15:58 Room Air 02/27/17 15:07 36.5 68 16 100/55 96 Physical Exam General Appearance: WD/WN, no apparent distress Respiratory/Chest: chest non-tender, lungs clear, normal breath sounds, no respiratory distress Cardiovascular: regular rate, rhythm, no edema, no gallop, no murmur Abdomen: normal bowel sounds, soft, no organomegaly, + tenderness (mild epigastric) Extremities: + pertinent finding (b/l LE amputation w/ dishiscence of wound site on the left dressing C/D/I) Laboratory Results 02/28/17 09:12 Red Blood Count 3.64, Mean Corpuscular Volume 84.3, Mean Corpuscular Hemoglobin 28.3, Mean Corpuscular Hemoglobin Concent 33.6, Mean Platelet Volume 8.6, Neutrophils (%) (Auto) 56.7, Lymphocytes (%) (Auto) 35.4, Monocytes (%) (Auto) 6.1, Eosinophils (%) (Auto) 1.4, Basophils (%) (Auto) 0.2, Neutrophils # (Auto) 3.25, Lymphocytes # (Auto) 2.03, Monocytes # (Auto) 0.35, Eosinophils # (Auto) 0.08, Basophils # (Auto) 0.01 02/28/17 09:12 Test 02/28/17 09:12 02/28/17 12:02 White Blood Count 5.73 K/uL (4.8-10.8) Red Blood Count 3.64 M/uL (4.2-5.4) Hemoglobin 10.3 g/dL (12.0-16.0) Hematocrit 30.7 % (37-47) Mean Corpuscular Volume 84.3 fL (80-100) Mean Corpuscular Hemoglobin 28.3 pg (25-34) Mean Corpuscular Hemoglobin Concent 33.6 g/dl (32-36) Platelet Count 294 K/uL (130-400) Mean Platelet Volume 8.6 fL (7.4-10.4) Neutrophils (%) (Auto) 56.7 % Lymphocytes (%) (Auto) 35.4 % Monocytes (%) (Auto) 6.1 % Eosinophils (%) (Auto) 1.4 % Basophils (%) (Auto) 0.2 % Neutrophils # (Auto) 3.25 K/uL (1.4-6.5) Lymphocytes # (Auto) 2.03 K/uL (1.2-3.4) Monocytes # (Auto) 0.35 K/uL (0.11-0.59) Eosinophils # (Auto) 0.08 K/uL (0-0.5) Basophils # (Auto) 0.01 K/uL (0-0.2) RDW Standard Deviation 38.4 fL (36.4-46.3) RDW Coefficient of Variation 12.5 % (11.5-14.5) Immature Granulocyte % (Auto) 0.2 % Immature Granulocyte # (Auto) 0.01 K/uL (0.00-0.02) Anion Gap 9.0 mmol/L (3-11) Est Creatinine Clear Calc Drug Dose 108.5 ml/min Estimated GFR () 97.4 Estimated GFR (Non- 84.0 BUN/Creatinine Ratio 28.0 (10-20) Calcium Level 8.4 mg/dl (8.5-10.1) Bedside Glucose 179 mg/dl (70-90) Assessment and Plan 51 y/o female h/o DMII presents w/ wound dihiscence s/p I&D 2 wks ago for medical management Wound dehiscence - management per primary team Anemia - present drop likely dilutional - repeat CBC in PM DMII, uncontrolled - A1c > 13 - case management aware - diabetic education provided - glycemic control consult ARF - trend BMP, avoid nephrotoxic medications Hypokalemia - replete today, trend BMP HTN and CAD s/p stents: continue home meds
[2017-02-28 14:16] VITALS: BP 119/66; PULSE 74; TEMP 36.7; O2SAT 96
[2017-02-28 15:24] LABS: HEMATOCRIT 30.1 % (37-47); MEAN CELL VOLUME 84.3 fL (80-100); MEAN CORPUSCULAR HEMOGLOBIN 28.3 pg (25-34); MEAN CORPUSCULAR HGB CONC 33.6 g/dl (32-36); MEAN PLATELET VOLUME 8.4 fL (7.4-10.4); PLATELET COUNT 291 K/uL (130-400); RED BLOOD COUNT 3.57 M/uL (4.2-5.4)
[2017-02-28] MEDS: DAPTOmycin IV 500 MG in SODIUM CHLORIDE 0.9% 50ML 50 ML IV SCH (18:41)
[2017-02-28 23:56] VITALS: BP 164/79; PULSE 78; TEMP 36.6; O2SAT 97
[2017-03-01] VITALS (8 sets, daily range): BP systolic 117–165; BP diastolic 62–83; PULSE 71–77; TEMP 36.6–37.3; O2SAT 93–97; BMI 32.3
[2017-03-01] MEDS: INSULIN ASPART 100 UNITS/ML 3 ML PEN SC SCH ×5 (00:10→21:35)
[2017-03-01] MEDS: MoRPHine SULFATE 2 MG/ML CARP IV PRN ×5 (00:17→23:51)
[2017-03-01] MEDS: LEVOTHYROXINE 112 MCG TAB PO SCH (05:30)
[2017-03-01 06:06] LABS: BASO % 0.2 %; BASO ABS # 0.01 K/uL (0-0.2); COMPLETE YES; EOS % 1.7 %; HEMATOCRIT 29.7 % (37-47); IG% 0.6 %; MEAN CELL VOLUME 86.3 fL (80-100); MEAN CORPUSCULAR HEMOGLOBIN 28.2 pg (25-34); MEAN CORPUSCULAR HGB CONC 32.7 g/dl (32-36); MEAN PLATELET VOLUME 8.6 fL (7.4-10.4); MONO % 6.8 %; NEUT % 45.7 %; PLATELET COUNT 302 K/uL (130-400); RED BLOOD COUNT 3.44 M/uL (4.2-5.4); WHITE BLOOD COUNT 5.33 K/uL (4.8-10.8)
[2017-03-01 06:39] LABS: CREATININE 0.6 mg/dl (0.60-1.20)
[2017-03-01] MEDS: INSULIN GLARGINE SOLOSTAR 100 UNITS/ML 3 ML PEN SC SCH ×2 (07:38→21:36)
[2017-03-01] MEDS: ALPRAZOLAM 0.5 MG TAB PO SCH ×3 (09:00→21:31)
[2017-03-01] MEDS: ASPIRIN 81 MG ECTAB PO SCH (09:00)
[2017-03-01] MEDS: RANITIDINE HCL 150 MG TAB PO SCH ×2 (09:00→21:32)
[2017-03-01] MEDS: ISOSORBIDE MONONITRATE 60 MG TABCR PO SCH ×2 (09:00→21:32)
[2017-03-01] MEDS: CHOLECALCIFEROL 1000 INTER.UNIT TAB PO SCH (09:00)
[2017-03-01] MEDS: RANOLAZINE 500 MG ER TAB PO SCH ×2 (09:00→21:32)
[2017-03-01] MEDS: DOCUSATE SODIUM 100 MG CAP PO SCH ×2 (09:00→21:31)
[2017-03-01 09:31] LABS: BUN/CREATININE RATIO 13.4 (10-20); CALCIUM 8.5 mg/dl (8.5-10.1); CREATININE 0.56 mg/dl (0.60-1.20); POTASSIUM 3.9 mmol/L (3.5-5.1)
[2017-03-01] MEDS: PANTOprazole SOD 40 MG TAB PO SCH (10:06)
--- NOTE | 2017-03-01 10:21 | Infectious Disease Progress Nt ---
Progress Note Date of Service March 01, 2017. 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 Remains afebrile. Tolerating Abx. Awaiting OR for debridement later today. All Other Systems: Reviewed and Negative Medications Current Inpatient Medications Medications (Trade) Dose Ordered Sig/Ochoa Route Start Time Stop Time Status Last Admin Dose Admin Alprazolam (Xanax Tab) 1 mg TID PO 02/26/17 21:00 03/28/17 20:59 02/28/17 20:59 1 MG Aspirin (Ecotrin Tab) 81 mg QAM PO 02/27/17 09:00 03/29/17 08:59 02/28/17 08:30 81 MG Isosorbide Mononitrate (Imdur Ext Rel Tab) 60 mg BID PO 02/26/17 21:00 03/28/17 20:59 02/28/17 20:53 60 MG Levothyroxine Sodium (Synthroid Tab) 112 mcg DAILYBB PO 02/27/17 06:00 03/29/17 05:59 02/28/17 06:41 112 MCG Ondansetron HCl (Zofran Tab) 4 mg Q6H PRN PO 02/26/17 16:30 03/28/17 16:29 Promethazine HCl (Phenergan Tab) 25 mg Q6 PRN PO 02/26/17 16:30 03/28/17 16:29 02/28/17 21:47 25 MG Senna/Docusate Sodium (Senokot S Tab) 2 tab HS PRN PO 02/26/17 16:30 03/28/17 16:29 Cholecalciferol (Vitamin D Tab) 2,000 inter.unit DAILY PO 02/27/17 09:00 03/29/17 08:59 02/28/17 08:29 2,000 INTER.UNIT Ranolazine (Ranexa ER Tab) 1,000 mg BID PO 02/26/17 21:00 03/28/17 20:59 02/28/17 20:53 1,000 MG Oxycodone HCl 1 tab for pain rated 1-5 2 t... Q4 PRN PO 02/26/17 16:30 03/12/17 16:29 02/28/17 21:48 10 MG Daptomycin/Sodium Chloride (Cubicin IV/Nss 50ml) 60 ml @ 100 mls/hr DAILY@1900 IV 02/26/17 19:00 03/08/17 18:59 02/28/17 18:41 100 MLS/HR Ketorolac Tromethamine (Toradol Inj) 15 mg Q6 PRN IV. 02/26/17 16:30 03/01/17 16:29 Future Hold 02/28/17 02:40 15 MG Acetaminophen (Tylenol Tab) 650 mg Q6H PRN PO 02/26/17 16:30 03/28/17 16:29 Diphenhydramine HCl (Benadryl Cap) 25 mg Q8 PRN PO 02/26/17 16:30 03/28/17 16:29 Zolpidem Tartrate (Ambien Tab) 5 mg HSZ PRN PO 02/26/17 16:30 03/28/17 16:29 Al Hydroxide/Mg Hydroxide (Maalox Susp) 30 ml Q6H PRN PO 02/26/17 16:30 03/28/17 16:29 Docusate Sodium (coLACE CAP) 100 mg BID PO 02/26/17 21:00 03/28/17 20:59 02/28/17 20:53 100 MG Ranitidine HCl (zANTac TAB) 150 mg BID PO 02/26/17 21:00 03/28/17 20:59 02/28/17 20:53 150 MG Pantoprazole Sodium (Protonix Tab) 40 mg QAM PO 02/27/17 09:00 03/29/17 08:59 02/28/17 08:30 40 MG Magnesium Hydroxide 30 ml 30 ml Q6H PRN PO 02/26/17 16:30 03/28/17 16:29 Sodium Chloride (Nss 1000ml) 1,000 ml @ 75 mls/hr [id number] IV 02/26/17 16:28 03/28/17 16:27 02/28/17 21:42 75 MLS/HR Daptomycin (Consult) 1 ea UD PRN N/A 02/26/17 18:00 03/28/17 17:59 Miscellaneous Information (Consult Glycemic Management Pharmacy) 1 ea UD PRN N/A 02/26/17 18:00 03/28/17 17:59 Glucose (Glucose 40% Gel) 15-30 GRAMS 15 GRAMS... UD PRN PO 02/26/17 18:45 03/28/17 18:44 Glucose (Glucose Chew Tab) 4-8 Tablets 4 Tabl... UD PRN PO 02/26/17 18:45 03/28/17 18:44 Dextrose (Dextrose 50% 50ML Syringe) 25-50ML OF 50% DW IV FOR... UD PRN IV 02/26/17 18:45 03/28/17 18:44 Glucagon (Glucagon Inj) 1 mg UD PRN SQ 02/26/17 18:45 03/28/17 18:44 Heparin Sodium (Porcine) (Heparin 100 Unit/ml 5ml Flush) 5 ml PRN PRN IV 02/27/17 07:15 03/29/17 07:14 Insulin Glargine (Lantus Solostar Pen) BID SC 02/27/17 21:00 03/29/17 20:59 03/01/17 07:38 32 UNIT Morphine Sulfate (MoRPHine SULFATE INJ) 2 mg Q2H PRN IV 02/28/17 07:45 03/14/17 07:44 03/01/17 07:42 2 MG Insulin Aspart (novoLOG ASPART) SLIDING SCALE Q6 SC 03/01/17 00:00 03/31/17 00:00 03/01/17 05:54 1 UNITS Objective Vital Signs Date Time Temp Pulse Resp B/P Pulse Ox O2 Delivery O2 Flow Rate FiO2 03/01/17 07:30 Room Air 03/01/17 07:18 36.7 73 17 138/74 97 Room Air 03/01/17 06:40 117/68 03/01/17 00:40 Room Air 02/28/17 23:56 36.6 78 16 164/79 97 02/28/17 19:40 Room Air 02/28/17 14:16 36.7 74 18 119/66 96 Room Air Physical Exam General Appearance: WD/WN, no apparent distress Eyes: normal inspection, EOMI, sclerae normal ENT: normal ENT inspection, pharynx normal Neck: supple, no adenopathy, trachea midline Respiratory/Chest: chest non-tender, lungs clear, normal breath sounds, no respiratory distress Cardiovascular: regular rate, rhythm, no gallop, no murmur Abdomen: normal bowel sounds, non tender, soft, no organomegaly Extremities: + pertinent finding (bilateral BKAs, left with wound dehiscence) Neurologic/Psychiatric: alert, oriented x 3 Skin: normal color, no rash Lymphatic: no adenopathy Laboratory Results Last 24 Hours Test 02/28/17 12:02 02/28/17 15:16 02/28/17 16:49 02/28/17 20:51 Bedside Glucose 179 mg/dl 117 mg/dl 214 mg/dl White Blood Count 5.10 K/uL Red Blood Count 3.57 M/uL Hemoglobin 10.1 g/dL Hematocrit 30.1 % Mean Corpuscular Volume 84.3 fL Mean Corpuscular Hemoglobin 28.3 pg Mean Corpuscular Hemoglobin Concent 33.6 g/dl RDW Standard Deviation 38.6 fL RDW Coefficient of Variation 12.5 % Platelet Count 291 K/uL Mean Platelet Volume 8.4 fL Test 02/28/17 23:55 03/01/17 05:25 03/01/17 05:35 03/01/17 08:44 Bedside Glucose 241 mg/dl 187 mg/dl White Blood Count 5.33 K/uL Red Blood Count 3.44 M/uL Hemoglobin 9.7 g/dL Hematocrit 29.7 % Mean Corpuscular Volume 86.3 fL Mean Corpuscular Hemoglobin 28.2 pg Mean Corpuscular Hemoglobin Concent 32.7 g/dl Platelet Count 302 K/uL Mean Platelet Volume 8.6 fL Neutrophils (%) (Auto) 45.7 % Lymphocytes (%) (Auto) 45.0 % Monocytes (%) (Auto) 6.8 % Eosinophils (%) (Auto) 1.7 % Basophils (%) (Auto) 0.2 % Neutrophils # (Auto) 2.44 K/uL Lymphocytes # (Auto) 2.40 K/uL Monocytes # (Auto) 0.36 K/uL Eosinophils # (Auto) 0.09 K/uL Basophils # (Auto) 0.01 K/uL RDW Standard Deviation 40.7 fL RDW Coefficient of Variation 12.8 % Immature Granulocyte % (Auto) 0.6 % Immature Granulocyte # (Auto) 0.03 K/uL Creatinine 0.60 mg/dl 0.56 mg/dl Est Creatinine Clear Calc Drug Dose 148.3 ml/min 158.9 ml/min Estimated GFR () 124.0 126.9 Estimated GFR (Non- 107.0 109.5 Sodium Level 141 mmol/L Potassium Level 3.9 mmol/L Chloride Level 109 mmol/L Carbon Dioxide Level 24 mmol/L Anion Gap 8.0 mmol/L Blood Urea Nitrogen 8 mg/dl BUN/Creatinine Ratio 13.4 Random Glucose 188 mg/dl Calcium Level 8.5 mg/dl Assessment and Plan 51-year-old female with poorly controlled diabetes mellitus, now with recurrent wound dehiscence at left BKA site. Patient should continue on daptomycin pending operative cultures. Will follow.
[2017-03-01] MEDS: SODIUM CHLORIDE 0.9% 1000ML 1,000 ML IV SCH ×2 (10:47→23:43)
[2017-03-01] MEDS ORDERED: BUPIVACAINE/EPINEPHRINE 0.5% MPF 1:200,000 30 ML VIAL ONE (11:23)
[2017-03-01] MEDS ORDERED: DEXAMETHASONE SOD INJ 4 MG/ML VIAL ONE (11:23)
[2017-03-01] MEDS ORDERED: FENTANYL CITRATE INJ 50 MCG/1 ML 2 ML VIAL ONE (12:05)
[2017-03-01] MEDS ORDERED: MIDAZOLAM HCL 1 MG/ML 2ML VIAL ONE ×2 (12:05)
[2017-03-01] MEDS ORDERED: CEFAZOLIN IV 2,000 MG/60 ML D5W IV ONE (12:12)
[2017-03-01] MEDS ORDERED: NURSING VERBAL MED ORDER ONE ×2 (12:15→15:30)
[2017-03-01] MEDS ORDERED: BACITRACIN 50000 UNIT VIAL ONE ×2 (12:18→13:20)
[2017-03-01] MEDS ORDERED: ONDANSETRON INJ 2 MG/ML 2 ML VIAL IV PRN (13:45)
[2017-03-01] MEDS ORDERED: FENTANYL CITRATE INJ 50 MCG/1 ML 2 ML VIAL IV PRN (13:45)
[2017-03-01] MEDS ORDERED: ATROPINE SULFATE 0.1 MG/ML 5ML SYR IV PRN (13:45)
[2017-03-01] MEDS ORDERED: EpHEDrine SULFATE INJ 50 MG/ML AMP IV PRN (13:45)
[2017-03-01] MEDS ORDERED: PROMETHAZINE HCL INJ 6.25 MG in SODIUM CHLORIDE 0.9% 50ML 50 ML IV PRN (13:45)
[2017-03-01] MEDS ORDERED: HYDROmorphone INJ 1 MG/ML SYR IV PRN (13:45)
--- NOTE | 2017-03-01 14:39 | Family Medicine Progress Note ---
Progress Note Date of Service March 01, 2017. Subjective Pt evaluation today including: conversation w/ patient, physical exam, chart review, lab review Pain: complains of throbbing pain along amputation site Voiding: no voiding problems 51-year-old female with past medical history of type 2 diabetes, status post bilateral below-knee amputation presented with complaints of wound dehiscence on the left below-knee amputation Medicine was consulted for management of hyperglycemia Doing better. No acute events overnight Scheduled for revision today. Constitutional: No chills, No fever Eyes: No worsening of vision ENT: No hearing loss Respiratory: No cough, No sputum Cardiovascular: No chest pain Abdomen: No nausea, No pain, No vomiting Musculoskeletal: + problem reported (pain along the left BKA site) Female : No dysuria Neurologic: No memory loss Psychiatric: No depression symptoms Medications Current Inpatient Medications Medications (Trade) Dose Ordered Sig/Ochoa Route Start Time Stop Time Status Last Admin Dose Admin Alprazolam (Xanax Tab) 1 mg TID PO 02/26/17 21:00 03/28/17 20:59 02/28/17 20:59 1 MG Aspirin (Ecotrin Tab) 81 mg QAM PO 02/27/17 09:00 03/29/17 08:59 02/28/17 08:30 81 MG Isosorbide Mononitrate (Imdur Ext Rel Tab) 60 mg BID PO 02/26/17 21:00 03/28/17 20:59 02/28/17 20:53 60 MG Levothyroxine Sodium (Synthroid Tab) 112 mcg DAILYBB PO 02/27/17 06:00 03/29/17 05:59 02/28/17 06:41 112 MCG Ondansetron HCl (Zofran Tab) 4 mg Q6H PRN PO 02/26/17 16:30 03/28/17 16:29 Promethazine HCl (Phenergan Tab) 25 mg Q6 PRN PO 02/26/17 16:30 03/28/17 16:29 02/28/17 21:47 25 MG Senna/Docusate Sodium (Senokot S Tab) 2 tab HS PRN PO 02/26/17 16:30 03/28/17 16:29 Cholecalciferol (Vitamin D Tab) 2,000 inter.unit DAILY PO 02/27/17 09:00 03/29/17 08:59 4/30/17 08:29 2,000 INTER.UNIT Ranolazine (Ranexa ER Tab) 1,000 mg BID PO 02/26/17 21:00 03/28/17 20:59 02/28/17 20:53 1,000 MG Oxycodone HCl 1 tab for pain rated 1-5 2 t... Q4 PRN PO 02/26/17 16:30 03/12/17 16:29 02/28/17 21:48 10 MG Daptomycin/Sodium Chloride (Cubicin IV/Nss 50ml) 60 ml @ 100 mls/hr DAILY@1900 IV 02/26/17 19:00 03/08/17 18:59 02/28/17 18:41 100 MLS/HR Ketorolac Tromethamine (Toradol Inj) 15 mg Q6 PRN IV. 02/26/17 16:30 03/01/17 16:29 Future Hold 02/28/17 02:40 15 MG Acetaminophen (Tylenol Tab) 650 mg Q6H PRN PO 02/26/17 16:30 03/28/17 16:29 Diphenhydramine HCl (Benadryl Cap) 25 mg Q8 PRN PO 02/26/17 16:30 03/28/17 16:29 Zolpidem Tartrate (Ambien Tab) 5 mg HSZ PRN PO 02/26/17 16:30 03/28/17 16:29 Al Hydroxide/Mg Hydroxide (Maalox Susp) 30 ml Q6H PRN PO 02/26/17 16:30 03/28/17 16:29 Docusate Sodium (coLACE CAP) 100 mg BID PO 02/26/17 21:00 03/28/17 20:59 02/28/17 20:53 100 MG Ranitidine HCl (zANTac TAB) 150 mg BID PO 02/26/17 21:00 03/28/17 20:59 02/28/17 20:53 150 MG Pantoprazole Sodium (Protonix Tab) 40 mg QAM PO 02/27/17 09:00 03/29/17 08:59 02/28/17 08:30 40 MG Magnesium Hydroxide 30 ml 30 ml Q6H PRN PO 02/26/17 16:30 03/28/17 16:29 Sodium Chloride (Nss 1000ml) 1,000 ml @ 75 mls/hr [id number] IV 02/26/17 16:28 03/28/17 16:27 03/01/17 10:47 75 MLS/HR Daptomycin (Consult) 1 ea UD PRN N/A 02/26/17 18:00 03/28/17 17:59 Miscellaneous Information (Consult Glycemic Management Pharmacy) 1 ea UD PRN N/A 02/26/17 18:00 03/28/17 17:59 Glucose (Glucose 40% Gel) 15-30 GRAMS 15 GRAMS... UD PRN PO 02/26/17 18:45 03/28/17 18:44 Glucose (Glucose Chew Tab) 4-8 Tablets 4 Tabl... UD PRN PO 02/26/17 18:45 03/28/17 18:44 Dextrose (Dextrose 50% 50ML Syringe) 25-50ML OF 50% DW IV FOR... UD PRN IV 02/26/17 18:45 03/28/17 18:44 Glucagon (Glucagon Inj) 1 mg UD PRN SQ 02/26/17 18:45 03/28/17 18:44 Heparin Sodium (Porcine) (Heparin 100 Unit/ml 5ml Flush) 5 ml PRN PRN IV 02/27/17 07:15 03/29/17 07:14 Insulin Glargine (Lantus Solostar Pen) BID SC 02/27/17 21:00 03/29/17 20:59 03/01/17 07:38 32 UNIT Morphine Sulfate (MoRPHine SULFATE INJ) 2 mg Q2H PRN IV 02/28/17 07:45 03/14/17 07:44 03/01/17 07:42 2 MG Insulin Aspart (novoLOG ASPART) SLIDING SCALE Q6 SC 03/01/17 00:00 03/31/17 00:00 03/01/17 05:54 1 UNITS Fentanyl Citrate (Fentanyl Inj) 50 mcg Q5M PRN IV 03/01/17 13:45 03/01/17 18:45 Hydromorphone HCl (Dilaudid Inj) 0.5 mg Q5M PRN IV 03/01/17 13:45 03/01/17 18:45 Ondansetron HCl 4 mg 4 mg ONE PRN IV 03/01/17 13:45 03/01/17 18:45 Promethazine HCl/ Sodium Chloride (Phenergan Inj/ Nss 50ml) 50.25 ml @ 202 mls/hr ONE PRN IV 03/01/17 13:45 03/01/17 18:45 Ephedrine Sulfate (EpHEDrine SULFATE INJ) 5 mg Q5M PRN IV 03/01/17 13:45 03/01/17 18:45 Atropine Sulfate (Atropine Sulfate 0.1MG/Ml Inj) 0.5 mg Q1M PRN IV 03/01/17 13:45 03/01/17 18:45 Objective Vital Signs Date Time Temp Pulse Resp B/P Pulse Ox O2 Delivery O2 Flow Rate FiO2 03/01/17 11:45 36.8 79 20 164/90 95 Room Air 03/01/17 07:30 Room Air 03/01/17 07:18 36.7 73 17 138/74 97 Room Air 03/01/17 06:40 117/68 03/01/17 00:40 Room Air 02/28/17 23:56 36.6 78 16 164/79 97 02/28/17 19:40 Room Air Physical Exam General Appearance: WD/WN, no apparent distress Eyes: normal inspection ENT: normal ENT inspection, hearing grossly normal Neck: supple Respiratory/Chest: chest non-tender, lungs clear, normal breath sounds, no respiratory distress Cardiovascular: regular rate, rhythm Abdomen: normal bowel sounds, non tender Extremities: + pertinent finding (bilateral BKA. Wound dehiscence along the left BKA. ) Neurologic/Psychiatric: alert, normal mood/affect, oriented x 3 Laboratory Results 03/01/17 05:25 Red Blood Count 3.44, Mean Corpuscular Volume 86.3, Mean Corpuscular Hemoglobin 28.2, Mean Corpuscular Hemoglobin Concent 32.7, Mean Platelet Volume 8.6, Neutrophils (%) (Auto) 45.7, Lymphocytes (%) (Auto) 45.0, Monocytes (%) (Auto) 6.8, Eosinophils (%) (Auto) 1.7, Basophils (%) (Auto) 0.2, Neutrophils # (Auto) 2.44, Lymphocytes # (Auto) 2.40, Monocytes # (Auto) 0.36, Eosinophils # (Auto) 0.09, Basophils # (Auto) 0.01 03/01/17 08:44 Test 03/01/17 05:25 03/01/17 05:35 03/01/17 08:44 White Blood Count 5.33 K/uL (4.8-10.8) Red Blood Count 3.44 M/uL (4.2-5.4) Hemoglobin 9.7 g/dL (12.0-16.0) Hematocrit 29.7 % (37-47) Mean Corpuscular Volume 86.3 fL (80-100) Mean Corpuscular Hemoglobin 28.2 pg (25-34) Mean Corpuscular Hemoglobin Concent 32.7 g/dl (32-36) Platelet Count 302 K/uL (130-400) Mean Platelet Volume 8.6 fL (7.4-10.4) Neutrophils (%) (Auto) 45.7 % Lymphocytes (%) (Auto) 45.0 % Monocytes (%) (Auto) 6.8 % Eosinophils (%) (Auto) 1.7 % Basophils (%) (Auto) 0.2 % Neutrophils # (Auto) 2.44 K/uL (1.4-6.5) Lymphocytes # (Auto) 2.40 K/uL (1.2-3.4) Monocytes # (Auto) 0.36 K/uL (0.11-0.59) Eosinophils # (Auto) 0.09 K/uL (0-0.5) Basophils # (Auto) 0.01 K/uL (0-0.2) RDW Standard Deviation 40.7 fL (36.4-46.3) RDW Coefficient of Variation 12.8 % (11.5-14.5) Immature Granulocyte % (Auto) 0.6 % Immature Granulocyte # (Auto) 0.03 K/uL (0.00-0.02) Bedside Glucose 187 mg/dl (70-90) Anion Gap 8.0 mmol/L (3-11) Est Creatinine Clear Calc Drug Dose 158.9 ml/min Estimated GFR () 126.9 Estimated GFR (Non- 109.5 BUN/Creatinine Ratio 13.4 (10-20) Calcium Level 8.5 mg/dl (8.5-10.1) Assessment and Plan 51-year-old female with past medical history of type 2 diabetes, status post bilateral below-knee amputation presented with complaints of left BKA wound dehiscence Wound dehiscence: Scheduled for revision today per primary team - Wound Gram stain and culture pending - Infectious disease consult- appreciate input -Continue daptomycin Uncontrolled diabetes: -Hemoglobin A1c at 13.6 - Pharmacy glycemic consult - Blood sugars controlled - Diabetes education PAM: Resolved Hypertension/coronary artery disease: - continue Ranexa, Imdur Hypothyroidism: Continue Synthroid Full code [facility] Resident Involvement: Resident Care Provided Care Provided: Adult Hospital Medicine Reviewed: Pt Seen/Exam by Me History doing well no concerns Constitutional: denies: fever Respiratory: negative: short of breath Cardiovascular: denies chest pain General Appearance: no apparent distress Respiratory: lungs clear, no respiratory distress Cardiovascular: regular rate, rhythm Extremities: other (Bilateral BKA. left BKA stump in dressing) Neurologic/Psychiatric: alert, oriented x 3 Assessment/Plan I have reviewed the medical record and performed a history and physical examination of this patient today. I have discussed the case with Dr. Nova. The above note reflects my findings, conclusions, and recommendations.
--- NOTE | 2017-03-01 14:45 | [facility] Post Operative Brief Note ---
Immediate Operative Summary Operative Date March 01, 2017. Pre-Operative Diagnosis Wound dehiscence left leg BKA Post-Operative Diagnosis Wound dehiscence left leg BKA involving skin, fascia, muscle and bone. Procedure(s) Performed Below Knee Amputation Revision Left; debridement of: skin, muscle, fascia, bone Surgeon Dr [facility] Surgeon(s) None Estimated Blood Loss 60ML Findings See dict Specimens Culture #1 aerobic, anaerobic and gram stain left leg wound Drains HV x 1; Prevena drain Anesthesia Popliteal with sedation Complication(s) None Disposition Recovery Room / PACU
--- NOTE | 2017-03-01 14:53 | Pharmacy Progress Note ---
Glycemic: Assessment & Plan Date of Service March 01, 2017. Assessment & Plan Assessment * Changes to stressors * POD 0 s/p BKA revision * Dexamethasone 4 mg IV likely admin in OR (not documented as admin, yet, but overridden from [facility]) * Changed from T2DM to NPO status * Patient still ordered as NPO, but may be re-ordered a diet if does well post- op. Will change Lantus dose to be *both* based on BSG and whether patient is ordered a diet. Patient may require less Lantus if remains NPO. * Will leave Novolog as-is for now despite dexamethasone administered as patient sensitivity to steroids is not known. May need to tighten CHO ratio if BSG's increase post-prandially * Will add in 0200 check if ordered a diet / Novolog changed from q6 to ACHS checks Plan * Basal insulin: Lantus BID based on diet and BSG * NPO and BSG < 120 mg/dL: 10 units * NPO and BSG >= 120 mg/dL: 20 units * Diet and BSG < 120 mg/dL: 16 units * Diet and BSG >= 120 mg/dL: 32 units * Correctional Insulin: Novolog Correction per scale ACHS or q6 while NPO Goal Range: Low 140 mg/dL - High 180 mg/dL Correction Factor: 10 mg/dL/unit * Prandial insulin: Per carb ratio of 1 unit per 5 grams CHO consumed Pharmacy will continue to monitor patient daily and write orders per [facility] inpatient glycemic control protocol. Thanks. * Please note that the plan above was derived based on current level of insulin resistance and hospital stress. These recommendations are appropriate for inpatient admission only. Plan of care upon discharge will need to be reassessed to avoid potential outpatient hypo/hyperglycemia.
--- NOTE | 2017-03-01 15:03 | Anesthesiology Progress Note ---
Anesthesia Post Op Note Date & Time March 01, 2017 at 15:03 Vital Signs Pain Intensity: 0 Vital Signs Past 12 Hours Date Time Temp Pulse Resp B/P Pulse Ox O2 Delivery O2 Flow Rate FiO2 03/01/17 15:00 36.5 75 16 145/71 94 Room Air 03/01/17 14:50 75 16 142/74 94 Room Air 03/01/17 14:40 74 16 144/77 96 Room Air 03/01/17 14:34 36.6 80 16 160/78 96 Room Air 03/01/17 11:45 36.8 79 20 164/90 95 Room Air 03/01/17 07:30 Room Air 03/01/17 07:18 36.7 73 17 138/74 97 Room Air 03/01/17 06:40 117/68 Notes Mental Status: alert / awake / arousable, participated in evaluation Pt Amnestic to Procedure: Yes Nausea / Vomiting: adequately controlled Pain: adequately controlled Airway Patency, RR, SpO2: stable & adequate BP & HR: stable & adequate Hydration State: stable & adequate Anesthetic Complications: no major complications apparent
--- NOTE | 2017-03-01 15:33 | OPERATIVE REPORT ---
DATE OF OPERATION: 03/01/2017 PREOPERATIVE DIAGNOSES: Wound dehiscence, left below knee amputation. POSTOPERATIVE DIAGNOSIS: 1. Wound dehiscence left below knee amputation. 2. Involvement of skin, fascia, muscle and bone, left lower extremity. PROCEDURE: 1. Revision left below knee amputation. 2. Debridement of skin. 3. Debridement of fascia. 4. Debridement of bone left lower extremity. SURGEON: Dr. Ramos. FOOD BAGGING MACHINE OPERATOR: None. ANESTHESIA: Popliteal block with sedation. SPECIMENS: Aerobic, anaerobic, Gram stain, left BKA stump. DRAINS: 1. Hemovac x1. 2. Prevena drain, left lower extremity. COMPLICATIONS: None. BLOOD LOSS: 60 mL. PERTINENT HISTORY: This is a 51-year-old female who had had prior below knee amputation. She had revision of a partial wound dehiscence with application platelet rich plasma concentrate approximately 2 weeks ago, was doing well until this past , developed redness and swelling and then had partial wound dehiscence. Seen in the orthopedic clinic on Wednesday and then admitted to the hospital on Wednesday for IV antibiotics. The patient had some improvement in her cellulitis and erythema; however, still had persistent partial wound dehiscence of the distal amputation stump. The patient was then scheduled for irrigation, debridement and revision of BKA as indicated. All potential risks, benefits, complications, alternatives, rehab, potential for incomplete relief of symptoms, need for further surgery, DVT, PE, , persistent pain, swelling, scarring, weakness, neurovascular injury, wound complications, need for further amputation discussed with the patient. The patient decided to proceed with the procedure as indicated. OPERATION AND FINDINGS: PROCEDURE: The patient was taken to the operative suite after popliteal block had been administered. The patient was placed supine on the operating room table. After reviewing consent and identification of proper operative site, the patient was sedated and the tourniquet was applied high on the left thigh over cast padding. Left lower extremity was then sterilely prepped and draped in usual fashion, elevated and tourniquet was inflated to 350 mmHg. There was no exsanguination performed due to the potential for infection. Next the sutures that were placed previously were partially removed in the central one-third of the below knee amputation. There was noted to be area of approximately 1.5 to 2 cm of partial wound dehiscence including skin and fascia with exposed muscle in the central one-third of the residual limb. After the sutures were removed 10 blade scalpel was then used to make an incision both medial and lateral to the area primary dehiscence to search for any potential tracking or tunneling of the abscess. There was noted to be none medial or lateral. There was a small area of tunneling necrosis slightly proximal and lateral. This was debrided with a rongeur until more healthy tissue was encountered. This was adjacent to the distal tibial stump which was then also debrided as well as the fascia and the gastrocnemius muscle and fascia. Next, sutures which were buried in and round the distal tibia for the myotenodesis flap were removed. no gross purulence were encountered; therefore this deep tissue was then cultured and also sent for Gram stain, aerobic and anaerobic analysis. Next, a curette was then used to curette the distal aspect of the tibia. This area where wound had dehisced through the fascial repair adjacent to the end of the distal tibia. No abscess, no fluctuance or purulence was encountered. Next, the 10 blade scalpel was then used to incise the marginal skin down to the level of the dermis both proximal and distal to get the fresh tissue. Punctate bleeding was encountered. Next, the fascia was debrided with a 10 blade scalpel. There was no evidence of obvious fasciitis or film or bacterial coated layer. Next, all skin and soft tissue was then carefully debrided with a rongeur and then curetted with a moderate sized curette. Any bone wax of the distal aspect of the tibia was removed with a curette and rongeur. Next, the pulsatile lavage with 6 liters of saline mixed with bacitracin was used to cleanse the wound until clear. A 10-[place] single lumen Hemovac drain was placed deep adjacent to the distal aspect of the tibia. A 2-0 nylon was used to approximate the gastrocsoleus flap and fascia proximally incorporating this in the skin closure. Next, the skin was closed full thickness with interrupted 2-0 nylon using a combination of horizontal mattress and vertical mattress sutures with some simple sutures in between. This afforded a fairly robust tissue flap coverage without any significant gapping. The limb was then cleansed with sterile saline. New top gloves and top sheet were applied and then the distal extent of the lower extremity was then carefully dried with surgical towels and then a 10 [place] single lumen Hemovac drain exited out the anteromedial aspect of the limb. Next, a Prevena drain was firmly affixed to the distal aspect of the incision site. Adequate seal was achieved and then a sterile compressive dressing and posterior splint was applied overwrapped with an Gabe wrap. This was held in 0 extension. The tourniquet was released. The patient was awakened and taken to recovery in stable condition. I attest to the content of the Intraoperative Record and any orders documented therein. Any exceptio ns are noted below.
[2017-03-01] MEDS: PROMETHAZINE HCL 25 MG TAB PO PRN (17:55)
[2017-03-01] MEDS: DAPTOmycin IV 350 MG in SODIUM CHLORIDE 0.9% 50ML 50 ML IV SCH (19:17)
[2017-03-02] MEDS ORDERED: INSULIN ASPART 100 UNITS/ML 3 ML PEN SC SCH (02:00)
[2017-03-02] MEDS ORDERED: INSULIN REGULAR IV SCH (02:30)
[2017-03-02 02:56] VITALS: BP 136/66; PULSE 76; TEMP 36.8; O2SAT 96
[2017-03-02 05:47] LABS: COMPLETE YES; EOS % 0.2 %; HEMATOCRIT 29.1 % (37-47); IG% 0.7 %; LYMPH % 21.1 %; LYMPH ABS # 1.22 K/uL (1.2-3.4); MEAN CELL VOLUME 85.3 fL (80-100); MEAN CORPUSCULAR HEMOGLOBIN 28.4 pg (25-34); MEAN CORPUSCULAR HGB CONC 33.3 g/dl (32-36); MEAN PLATELET VOLUME 8.6 fL (7.4-10.4); MONO % 5.9 %; NEUT % 72.1 %; PLATELET COUNT 323 K/uL (130-400); RED BLOOD COUNT 3.41 M/uL (4.2-5.4); WHITE BLOOD COUNT 5.77 K/uL (4.8-10.8)
[2017-03-02 06:12] LABS: CREATININE 0.63 mg/dl (0.60-1.20)
[2017-03-02] MEDS: LEVOTHYROXINE 112 MCG TAB PO SCH (06:25)
[2017-03-02] MEDS: MoRPHine SULFATE 2 MG/ML CARP IV PRN ×3 (06:44→21:21)
[2017-03-02 07:22] VITALS: BP 140/78; PULSE 68; TEMP 36.6; O2SAT 96
[2017-03-02] MEDS: CHOLECALCIFEROL 1000 INTER.UNIT TAB PO SCH (08:57)
[2017-03-02] MEDS: RANOLAZINE 500 MG ER TAB PO SCH ×2 (08:57→21:10)
[2017-03-02] MEDS: PANTOprazole SOD 40 MG TAB PO SCH (08:57)
[2017-03-02] MEDS: ISOSORBIDE MONONITRATE 60 MG TABCR PO SCH ×2 (08:58→21:10)
[2017-03-02] MEDS: ASPIRIN 81 MG ECTAB PO SCH (08:58)
[2017-03-02] MEDS: RANITIDINE HCL 150 MG TAB PO SCH ×2 (08:58→21:10)
[2017-03-02] MEDS: DOCUSATE SODIUM 100 MG CAP PO SCH ×2 (08:58→21:09)
[2017-03-02] MEDS: INSULIN ASPART 100 UNITS/ML 3 ML PEN SC SCH ×4 (09:14→21:14)
[2017-03-02] MEDS: INSULIN GLARGINE SOLOSTAR 100 UNITS/ML 3 ML PEN SC SCH ×2 (09:15→21:13)
[2017-03-02] MEDS: ALPRAZOLAM 0.5 MG TAB PO SCH ×3 (09:21→21:08)
[2017-03-02 09:30] LABS: BUN/CREATININE RATIO 10.9 (10-20); CREATININE 0.46 mg/dl (0.60-1.20); POTASSIUM 3.6 mmol/L (3.5-5.1)
[2017-03-02 09:35] LABS: CALCIUM 8.7 mg/dl (8.5-10.1)
--- NOTE | 2017-03-02 09:42 | Anesthesiology Progress Note ---
Anesthesia Post Op Note Date & Time March 02, 2017 at 09:41 Vital Signs Pain Intensity: 0.0 Vital Signs Past 12 Hours Date Time Temp Pulse Resp B/P Pulse Ox O2 Delivery O2 Flow Rate FiO2 03/02/17 07:40 Room Air 03/02/17 07:22 36.6 68 16 140/78 96 Room Air 03/02/17 02:56 36.8 76 17 136/66 96 Room Air 03/01/17 23:15 Room Air 03/01/17 22:50 36.6 76 17 149/79 93 Room Air Notes Mental Status: alert / awake / arousable, participated in evaluation Pt Amnestic to Procedure: Yes Nausea / Vomiting: adequately controlled Pain: adequately controlled Airway Patency, RR, SpO2: stable & adequate BP & HR: stable & adequate Hydration State: stable & adequate Anesthetic Complications: no major complications apparent
--- NOTE | 2017-03-02 09:50 | Family Medicine Progress Note ---
Progress Note Date of Service March 02, 2017. Subjective Pt evaluation today including: conversation w/ patient, physical exam, chart review, lab review Pain: well controlled PO Intake: good Voiding: no voiding problems 51-year-old female with past medical history of type 2 diabetes, status post bilateral below-knee amputation presented with complaints of wound dehiscence on the left below-knee amputation Medicine was consulted for management of hyperglycemia . Had undergone revision of left BKA yesterday. Tolerated the procedure well. Pain is well controlled. Denies fevers/chills, chest pain, palpitations, dizziness, shortness of breath. Somewhat constipated but has been using Colace Constitutional: No chills, No fever Eyes: No worsening of vision ENT: No hearing loss Respiratory: No cough, No sputum Cardiovascular: No chest pain Musculoskeletal: + joint pain (s/p Left BKA revision) Medications Current Inpatient Medications Medications (Trade) Dose Ordered Sig/Ochoa Route Start Time Stop Time Status Last Admin Dose Admin Alprazolam (Xanax Tab) 1 mg TID PO 02/26/17 21:00 03/28/17 20:59 03/02/17 14:00 1 MG Aspirin (Ecotrin Tab) 81 mg QAM PO 02/27/17 09:00 03/29/17 08:59 03/02/17 08:58 81 MG Isosorbide Mononitrate (Imdur Ext Rel Tab) 60 mg BID PO 02/26/17 21:00 03/28/17 20:59 03/02/17 08:58 60 MG Levothyroxine Sodium (Synthroid Tab) 112 mcg DAILYBB PO 02/27/17 06:00 03/29/17 05:59 03/02/17 06:25 112 MCG Ondansetron HCl (Zofran Tab) 4 mg Q6H PRN PO 02/26/17 16:30 03/28/17 16:29 Promethazine HCl (Phenergan Tab) 25 mg Q6 PRN PO 02/26/17 16:30 03/28/17 16:29 03/01/17 17:55 25 MG Senna/Docusate Sodium (Senokot S Tab) 2 tab HS PRN PO 02/26/17 16:30 03/28/17 16:29 Cholecalciferol (Vitamin D Tab) 2,000 inter.unit DAILY PO 02/27/17 09:00 03/29/17 08:59 03/02/17 08:57 2,000 INTER.UNIT Ranolazine (Ranexa ER Tab) 1,000 mg BID PO 02/26/17 21:00 03/28/17 20:59 03/02/17 08:57 1,000 MG Oxycodone HCl (Roxicodone Immediate Rel Tab) 1 tab for pain rated 1-5 2 t... Q4 PRN PO 02/26/17 16:30 03/12/17 16:29 03/02/17 13:21 10 MG Acetaminophen (Tylenol Tab) 650 mg Q6H PRN PO 02/26/17 16:30 03/28/17 16:29 Diphenhydramine HCl (Benadryl Cap) 25 mg Q8 PRN PO 02/26/17 16:30 03/28/17 16:29 Zolpidem Tartrate (Ambien Tab) 5 mg HSZ PRN PO 02/26/17 16:30 03/28/17 16:29 Al Hydroxide/Mg Hydroxide (Maalox Susp) 30 ml Q6H PRN PO 02/26/17 16:30 03/28/17 16:29 Docusate Sodium (coLACE CAP) 100 mg BID PO 02/26/17 21:00 03/28/17 20:59 03/02/17 08:58 100 MG Ranitidine HCl (zANTac TAB) 150 mg BID PO 02/26/17 21:00 03/28/17 20:59 03/02/17 08:58 150 MG Pantoprazole Sodium (Protonix Tab) 40 mg QAM PO 02/27/17 09:00 03/29/17 08:59 03/02/17 08:57 40 MG Magnesium Hydroxide 30 ml 30 ml Q6H PRN PO 02/26/17 16:30 03/28/17 16:29 Sodium Chloride (Nss 1000ml) 1,000 ml @ 75 mls/hr [id number] IV 02/26/17 16:28 03/28/17 16:27 03/02/17 13:20 75 MLS/HR Daptomycin (Consult) 1 ea UD PRN N/A 02/26/17 18:00 03/28/17 17:59 Miscellaneous Information (Consult Glycemic Management Pharmacy) 1 ea UD PRN N/A 02/26/17 18:00 03/28/17 17:59 Glucose (Glucose 40% Gel) 15-30 GRAMS 15 GRAMS... UD PRN PO 02/26/17 18:45 03/28/17 18:44 Glucose (Glucose Chew Tab) 4-8 Tablets 4 Tabl... UD PRN PO 02/26/17 18:45 03/28/17 18:44 Dextrose (Dextrose 50% 50ML Syringe) 25-50ML OF 50% DW IV FOR... UD PRN IV 02/26/17 18:45 03/28/17 18:44 Glucagon (Glucagon Inj) 1 mg UD PRN SQ 02/26/17 18:45 03/28/17 18:44 Heparin Sodium (Porcine) (Heparin 100 Unit/ml 5ml Flush) 5 ml PRN PRN IV 02/27/17 07:15 03/29/17 07:14 Morphine Sulfate 2 mg 2 mg Q2H PRN IV 02/28/17 07:45 03/14/17 07:44 03/02/17 06:44 2 MG Daptomycin/Sodium Chloride (Cubicin IV/Nss 50ml) 57 ml @ 100 mls/hr DAILY@1900 IV 03/01/17 19:00 03/08/17 18:59 03/01/17 19:17 100 MLS/HR Insulin Aspart (novoLOG ASPART) SLIDING SCALE ACHS SC 03/01/17 17:15 03/31/17 17:14 03/02/17 13:14 8 UNITS Insulin Glargine (Lantus Solostar Pen) 32 unit BID SC 03/02/17 21:00 04/01/17 20:59 Objective Vital Signs Date Time Temp Pulse Resp B/P Pulse Ox O2 Delivery O2 Flow Rate FiO2 03/02/17 15:17 37.0 68 18 125/70 96 Room Air 03/02/17 11:46 36.9 71 16 130/71 94 Room Air 03/02/17 07:40 Room Air 03/02/17 07:22 36.6 68 16 140/78 96 Room Air 03/02/17 02:56 36.8 76 17 136/66 96 Room Air 03/01/17 23:15 Room Air 03/01/17 22:50 36.6 76 17 149/79 93 Room Air 03/01/17 18:35 37.3 77 18 165/83 97 Room Air 03/01/17 17:25 37.2 71 18 136/72 96 Room Air 03/01/17 16:22 37.0 73 18 160/82 96 Room Air Physical Exam General Appearance: WD/WN, no apparent distress Eyes: normal inspection ENT: normal ENT inspection, hearing grossly normal Neck: supple Respiratory/Chest: chest non-tender, lungs clear, normal breath sounds Cardiovascular: regular rate, rhythm, no edema Abdomen: normal bowel sounds, non tender Extremities: + pertinent finding (left BKA s/p revision) Neurologic/Psychiatric: alert, normal mood/affect, oriented x 3 Laboratory Results 03/02/17 05:20 Red Blood Count 3.41, Mean Corpuscular Volume 85.3, Mean Corpuscular Hemoglobin 28.4, Mean Corpuscular Hemoglobin Concent 33.3, Mean Platelet Volume 8.6, Neutrophils (%) (Auto) 72.1, Lymphocytes (%) (Auto) 21.1, Monocytes (%) (Auto) 5.9, Eosinophils (%) (Auto) 0.2, Basophils (%) (Auto) 0.0, Neutrophils # (Auto) 4.16, Lymphocytes # (Auto) 1.22, Monocytes # (Auto) 0.34, Eosinophils # (Auto) 0.01, Basophils # (Auto) 0.00 03/02/17 08:38 Test 03/02/17 05:20 03/02/17 08:38 03/02/17 11:52 White Blood Count 5.77 K/uL (4.8-10.8) Red Blood Count 3.41 M/uL (4.2-5.4) Hemoglobin 9.7 g/dL (12.0-16.0) Hematocrit 29.1 % (37-47) Mean Corpuscular Volume 85.3 fL (80-100) Mean Corpuscular Hemoglobin 28.4 pg (25-34) Mean Corpuscular Hemoglobin Concent 33.3 g/dl (32-36) Platelet Count 323 K/uL (130-400) Mean Platelet Volume 8.6 fL (7.4-10.4) Neutrophils (%) (Auto) 72.1 % Lymphocytes (%) (Auto) 21.1 % Monocytes (%) (Auto) 5.9 % Eosinophils (%) (Auto) 0.2 % Basophils (%) (Auto) 0.0 % Neutrophils # (Auto) 4.16 K/uL (1.4-6.5) Lymphocytes # (Auto) 1.22 K/uL (1.2-3.4) Monocytes # (Auto) 0.34 K/uL (0.11-0.59) Eosinophils # (Auto) 0.01 K/uL (0-0.5) Basophils # (Auto) 0.00 K/uL (0-0.2) RDW Standard Deviation 39.6 fL (36.4-46.3) RDW Coefficient of Variation 12.8 % (11.5-14.5) Immature Granulocyte % (Auto) 0.7 % Immature Granulocyte # (Auto) 0.04 K/uL (0.00-0.02) Anion Gap 10.0 mmol/L (3-11) Est Creatinine Clear Calc Drug Dose 156.4 ml/min Estimated GFR () 135.4 Estimated GFR (Non- 116.8 BUN/Creatinine Ratio 10.9 (10-20) Calcium Level 8.7 mg/dl (8.5-10.1) Bedside Glucose 123 mg/dl (70-90) Assessment and Plan 51-year-old female with past medical history of type 2 diabetes, status post bilateral below-knee amputation presented with complaints of left BKA wound dehiscence . Status post left BKA revision Wound dehiscence: - status post left BKA revision. - Wound culture growing staph aureus - Infectious disease consult- appreciate input - Continue daptomycin - Pain control per primary service Uncontrolled diabetes: -Hemoglobin A1c at 13.6 - Blood sugars fluctuating. - Pharmacy following for glycemic consult - Diabetes education PAM: Resolved Hypertension/coronary artery disease: - continue Ranexa, Imdur Hypothyroidism: -Continue Synthroid Constipation: -Continue Colace, may try MiraLAX Full code Disposition: MedSur Resident Tracking Resident Involvement: Resident Care Provided Care Provided: Adult Hospital Medicine Reviewed: Pt Seen/Exam by Me Constitutional: denies: fever Respiratory: negative: short of breath Cardiovascular: denies chest pain General Appearance: no apparent distress Respiratory: lungs clear, no respiratory distress Cardiovascular: regular rate, rhythm Extremities: other (bilateral BKA. left stump in dressing) Neurologic/Psychiatric: alert, oriented x 3 Assessment/Plan I have reviewed the medical record and performed a history and physical examination of this patient today. I have discussed the case with Dr. Nova. The above note reflects my findings, conclusions, and recommendations.
[2017-03-02 11:46] VITALS: BP 130/71; PULSE 71; TEMP 36.9; O2SAT 94
--- NOTE | 2017-03-02 12:57 | Pharmacy Progress Note ---
Glycemic Control: Progress Nt Date of Service March 02, 2017. Scope Glycemic Pharmacist consulted by Dean Silva PA-C on 02/26/2017 for glycemic control and to write orders per [facility] inpatient glycemic control protocol. Objective Accuchecks BSG (last 24hrs): Test 03/01/17 14:41 03/01/17 17:24 03/01/17 21:30 03/02/17 02:05 Bedside Glucose 169 mg/dl (70-90) 203 mg/dl (70-90) 315 mg/dl (70-90) 383 mg/dl (70-90) Test 03/02/17 08:04 03/02/17 08:38 Bedside Glucose 161 mg/dl (70-90) Random Glucose 134 mg/dl (70-99) Laboratory Data (last 24hrs) Test 03/02/17 05:20 03/02/17 08:38 Creatinine 0.63 mg/dl 0.46 mg/dl White Blood Count 5.77 K/uL Red Blood Count 3.41 M/uL Hemoglobin 9.7 g/dL Hematocrit 29.1 % Mean Corpuscular Volume 85.3 fL Mean Corpuscular Hemoglobin 28.4 pg Mean Corpuscular Hemoglobin Concent 33.3 g/dl Platelet Count 323 K/uL Mean Platelet Volume 8.6 fL Neutrophils (%) (Auto) 72.1 % Lymphocytes (%) (Auto) 21.1 % Monocytes (%) (Auto) 5.9 % Eosinophils (%) (Auto) 0.2 % Basophils (%) (Auto) 0.0 % Neutrophils # (Auto) 4.16 K/uL Lymphocytes # (Auto) 1.22 K/uL Monocytes # (Auto) 0.34 K/uL Eosinophils # (Auto) 0.01 K/uL Basophils # (Auto) 0.00 K/uL Anion Gap 10.0 mmol/L BUN/Creatinine Ratio 10.9 Blood Urea Nitrogen 5 mg/dl Potassium Level 3.6 mmol/L Sodium Level 141 mmol/L HbA1c: Test 02/27/17 06:03 Hemoglobin A1c 13.5 % (4.5-5.6) H Recent Pertinent Medications Outpatient Anti-diabetic Regimen: * Toujeo 32 units BID plus Humalog 10 units at lunch, 15 units at dinner, and 20 units at bedtime The patient is currently receiving: * Basal insulin: Lantus 32 units every 12 hours * Correctional Insulin: Novolog Correction per scale ACHS Goal Range: Low 140 mg/dL - High 180 mg/dL Correction Factor: 10 mg/dL/unit (overnight reduced to 8 mg/dL/unit) * Prandial insulin: Per carb ratio of 1 unit per 4 grams CHO consumed Risk Factors for Insulin Resistance: * Steroids: dexamethasone 4 mg IV x 1 in OR * Infection: wound infection s/p surgery still on daptomycin * Recent Surgery: POD 1 after wound surgery * Diet: type 2 diabetic diet Assessment & Plan ASSESSMENT: * ADA & AACE recommend a goal blood sugar range 140-180 mg/dl for the majority of critically ill & non-critically ill patients. However, more stringent targets may be selected in individual cases. * Ms Freeman is a 51 y/o F with poorly controlled diabetes admitted 02/26/2017 with LLE open surgical wounds. She remains difficult to control during hospitalization. She underwent additional surgery on 03/01/2017 where she received dexamethasone intraoperatively. * The patient is currently receiving a diet. She received less insulin yesterday at 91 units compared to ~120 units/day on 02/27/17 and 02/28/2017 (this was because she missed her lunch insulin). Her blood sugars ranged from 187-315 mg/dL. She was 383 mg/dL overnight and received 3 units of regular insulin IV. The overnight correctional insulin was tightened. * Today her fasting was 161 mg/dL which indicates that she responded nicely to the tightened correctional insulin and overnight IV insulin. Her lunch blood sugar trended downwards which is expected as the effects from the dexamethasone have started to wear off. The carbohydrate ratio was loosened by to pre-surgery levels as this appears sufficient for the patient. Overnight accucheck was removed. PLAN FOR INPATIENT GLYCEMIC CONTROL: * Continuing Lantus 32 units SQ BID * Continuing correction factor of 10 mg/dl/unit * LOOSENING carb ratio to 1 unit per 5 grams CHO consumed * Continuing goal range Low 140 mg/dL - High 180 mg/dL * Please note that the plan above was derived based on current level of insulin resistance and hospital stress. These recommendations are appropriate for inpatient admission only. Plan of care upon discharge will need to be reassessed to avoid potential outpatient hypo/hyperglycemia. Thank you.
[2017-03-02] MEDS: SODIUM CHLORIDE 0.9% 1000ML 1,000 ML IV SCH (13:20)
[2017-03-02] MEDS: OXYCODONE HCL IR 5 MG TAB (IMMEDIATE RELEASE) PO PRN (13:21)
[2017-03-02 15:17] VITALS: BP 125/70; PULSE 68; TEMP 37; O2SAT 96
[2017-03-02 15:24] VITALS: Ht 162.6 cm; Wt 85.3 kg
--- NOTE | 2017-03-02 16:16 | Orthopedic Progress Note ---
Orthopedic Progress Note Date of Service March 02, 2017. Subjective Post OP Day: 1 Reports: feeling well (States she feels wiped out but overall doing well.), pain controlled w PO medications, Denies: SOB, calf pain, chest pain, light headedness, nausea / vomiting Objective N/V intact, splint C/D/I, dressing C/D/I, A&O x3, hemovac drainage (65 cc total) Prevena dressing in place and functioning at the Left BKA site. Date Time Temp Pulse Resp B/P Pulse Ox O2 Delivery O2 Flow Rate FiO2 03/02/17 15:17 37.0 68 18 125/70 96 Room Air 03/02/17 11:46 36.9 71 16 130/71 94 Room Air 03/02/17 07:40 Room Air 03/02/17 07:22 36.6 68 16 140/78 96 Room Air 03/02/17 02:56 36.8 76 17 136/66 96 Room Air 03/01/17 23:15 Room Air 03/01/17 22:50 36.6 76 17 149/79 93 Room Air 03/01/17 18:35 37.3 77 18 165/83 97 Room Air 03/01/17 17:25 37.2 71 18 136/72 96 Room Air 03/01/17 16:22 37.0 73 18 160/82 96 Room Air Laboratory Results 24 Hours: Test 03/02/17 05:20 White Blood Count 5.77 K/uL Red Blood Count 3.41 M/uL Hemoglobin 9.7 g/dL Hematocrit 29.1 % Mean Corpuscular Volume 85.3 fL Mean Corpuscular Hemoglobin 28.4 pg Mean Corpuscular Hemoglobin Concent 33.3 g/dl Platelet Count 323 K/uL Mean Platelet Volume 8.6 fL Neutrophils (%) (Auto) 72.1 % Lymphocytes (%) (Auto) 21.1 % Monocytes (%) (Auto) 5.9 % Eosinophils (%) (Auto) 0.2 % Basophils (%) (Auto) 0.0 % Neutrophils # (Auto) 4.16 K/uL Lymphocytes # (Auto) 1.22 K/uL Monocytes # (Auto) 0.34 K/uL Eosinophils # (Auto) 0.01 K/uL Basophils # (Auto) 0.00 K/uL Assessment & Plan Assessment: POD #1 s/p 1. Revision left below knee amputation. 2. Debridement of skin. 3. Debridement of fascia. 4. Debridement of bone left lower extremity 2 wks post op left BKA with post op wound dehiscence Plan: Continue IV Daptomycin Wound care. Pain control. Appreciate medicine input. Inhouse Planning Pain Management: Toradol, Oxy IR DVT Prophylaxis: ASA Discharge Planning Discharge Planning: uncertain
[2017-03-02] MEDS: PROMETHAZINE HCL 25 MG TAB PO PRN (18:32)
[2017-03-02] MEDS: DAPTOmycin IV 350 MG in SODIUM CHLORIDE 0.9% 50ML 50 ML IV SCH (18:32)
--- NOTE | 2017-03-02 19:11 | Infectious Disease Progress Nt ---
Progress Note Date of Service March 02, 2017. Subjective Pt evaluation today including: conversation w/ patient, physical exam, chart review, lab review, review of studies, conversation w/ science consultant, review of inpatient medication list S/P revision surgery of left BKA. Bone, muscle, and fascia debrided. Cultures growing Staph species. Pt. reasonably comfortable, no fever. Tolerating Abx. All Other Systems: Reviewed and Negative Medications Current Inpatient Medications Medications (Trade) Dose Ordered Sig/Ochoa Route Start Time Stop Time Status Last Admin Dose Admin Alprazolam (Xanax Tab) 1 mg TID PO 02/26/17 21:00 03/28/17 20:59 03/02/17 14:00 1 MG Aspirin (Ecotrin Tab) 81 mg QAM PO 02/27/17 09:00 03/29/17 08:59 03/02/17 08:58 81 MG Isosorbide Mononitrate (Imdur Ext Rel Tab) 60 mg BID PO 02/26/17 21:00 03/28/17 20:59 03/02/17 08:58 60 MG Levothyroxine Sodium (Synthroid Tab) 112 mcg DAILYBB PO 02/27/17 06:00 03/29/17 05:59 03/02/17 06:25 112 MCG Ondansetron HCl (Zofran Tab) 4 mg Q6H PRN PO 02/26/17 16:30 03/28/17 16:29 Promethazine HCl (Phenergan Tab) 25 mg Q6 PRN PO 02/26/17 16:30 03/28/17 16:29 03/02/17 18:32 25 MG Senna/Docusate Sodium (Senokot S Tab) 2 tab HS PRN PO 02/26/17 16:30 03/28/17 16:29 Cholecalciferol (Vitamin D Tab) 2,000 inter.unit DAILY PO 02/27/17 09:00 03/29/17 08:59 03/02/17 08:57 2,000 INTER.UNIT Ranolazine (Ranexa ER Tab) 1,000 mg BID PO 02/26/17 21:00 03/28/17 20:59 03/02/17 08:57 1,000 MG Oxycodone HCl (Roxicodone Immediate Rel Tab) 1 tab for pain rated 1-5 2 t... Q4 PRN PO 02/26/17 16:30 03/12/17 16:29 03/02/17 13:21 10 MG Acetaminophen (Tylenol Tab) 650 mg Q6H PRN PO 02/26/17 16:30 03/28/17 16:29 Diphenhydramine HCl (Benadryl Cap) 25 mg Q8 PRN PO 02/26/17 16:30 03/28/17 16:29 Zolpidem Tartrate (Ambien Tab) 5 mg HSZ PRN PO 02/26/17 16:30 03/28/17 16:29 Al Hydroxide/Mg Hydroxide (Maalox Susp) 30 ml Q6H PRN PO 02/26/17 16:30 03/28/17 16:29 Docusate Sodium (coLACE CAP) 100 mg BID PO 02/26/17 21:00 03/28/17 20:59 03/02/17 08:58 100 MG Ranitidine HCl (zANTac TAB) 150 mg BID PO 02/26/17 21:00 03/28/17 20:59 03/02/17 08:58 150 MG Pantoprazole Sodium (Protonix Tab) 40 mg QAM PO 02/27/17 09:00 03/29/17 08:59 03/02/17 08:57 40 MG Magnesium Hydroxide 30 ml 30 ml Q6H PRN PO 02/26/17 16:30 03/28/17 16:29 Sodium Chloride (Nss 1000ml) 1,000 ml @ 75 mls/hr [id number] IV 02/26/17 16:28 03/28/17 16:27 03/02/17 13:20 75 MLS/HR Daptomycin (Consult) 1 ea UD PRN N/A 02/26/17 18:00 03/28/17 17:59 Miscellaneous Information (Consult Glycemic Management Pharmacy) 1 ea UD PRN N/A 02/26/17 18:00 03/28/17 17:59 Glucose (Glucose 40% Gel) 15-30 GRAMS 15 GRAMS... UD PRN PO 02/26/17 18:45 03/28/17 18:44 Glucose (Glucose Chew Tab) 4-8 Tablets 4 Tabl... UD PRN PO 02/26/17 18:45 03/28/17 18:44 Dextrose (Dextrose 50% 50ML Syringe) 25-50ML OF 50% DW IV FOR... UD PRN IV 02/26/17 18:45 03/28/17 18:44 Glucagon (Glucagon Inj) 1 mg UD PRN SQ 02/26/17 18:45 03/28/17 18:44 Heparin Sodium (Porcine) (Heparin 100 Unit/ml 5ml Flush) 5 ml PRN PRN IV 02/27/17 07:15 03/29/17 07:14 Morphine Sulfate 2 mg 2 mg Q2H PRN IV 02/28/17 07:45 03/14/17 07:44 03/02/17 16:38 2 MG Daptomycin/Sodium Chloride (Cubicin IV/Nss 50ml) 57 ml @ 100 mls/hr DAILY@1900 IV 03/01/17 19:00 03/08/17 18:59 03/02/17 18:32 100 MLS/HR Insulin Aspart (novoLOG ASPART) SLIDING SCALE ACHS SC 03/01/17 17:15 03/31/17 17:14 03/02/17 18:00 3 UNITS Insulin Glargine (Lantus Solostar Pen) 32 unit BID SC 03/02/17 21:00 04/01/17 20:59 Objective Vital Signs Date Time Temp Pulse Resp B/P Pulse Ox O2 Delivery O2 Flow Rate FiO2 03/02/17 15:20 Room Air 03/02/17 15:17 37.0 68 18 125/70 96 Room Air 03/02/17 11:46 36.9 71 16 130/71 94 Room Air 03/02/17 07:40 Room Air 03/02/17 07:22 36.6 68 16 140/78 96 Room Air 03/02/17 02:56 36.8 76 17 136/66 96 Room Air 03/01/17 23:15 Room Air 03/01/17 22:50 36.6 76 17 149/79 93 Room Air Physical Exam General Appearance: WD/WN, no apparent distress Eyes: normal inspection, EOMI, sclerae normal ENT: normal ENT inspection, pharynx normal Neck: supple, no adenopathy, trachea midline Respiratory/Chest: chest non-tender, lungs clear, normal breath sounds, no respiratory distress Cardiovascular: regular rate, rhythm, no gallop, no murmur Abdomen: normal bowel sounds, non tender, soft, no organomegaly Extremities: non-tender, no calf tenderness, + pertinent finding (dressing intact left leg) Neurologic/Psychiatric: alert, oriented x 3 Skin: normal color, warm/dry, no rash Lymphatic: no adenopathy Laboratory Results Last 24 Hours Test 03/01/17 21:30 03/02/17 02:05 03/02/17 05:20 03/02/17 08:04 Bedside Glucose 315 mg/dl 383 mg/dl 161 mg/dl White Blood Count 5.77 K/uL Red Blood Count 3.41 M/uL Hemoglobin 9.7 g/dL Hematocrit 29.1 % Mean Corpuscular Volume 85.3 fL Mean Corpuscular Hemoglobin 28.4 pg Mean Corpuscular Hemoglobin Concent 33.3 g/dl Platelet Count 323 K/uL Mean Platelet Volume 8.6 fL Neutrophils (%) (Auto) 72.1 % Lymphocytes (%) (Auto) 21.1 % Monocytes (%) (Auto) 5.9 % Eosinophils (%) (Auto) 0.2 % Basophils (%) (Auto) 0.0 % Neutrophils # (Auto) 4.16 K/uL Lymphocytes # (Auto) 1.22 K/uL Monocytes # (Auto) 0.34 K/uL Eosinophils # (Auto) 0.01 K/uL Basophils # (Auto) 0.00 K/uL RDW Standard Deviation 39.6 fL RDW Coefficient of Variation 12.8 % Immature Granulocyte % (Auto) 0.7 % Immature Granulocyte # (Auto) 0.04 K/uL Creatinine 0.63 mg/dl Est Creatinine Clear Calc Drug Dose 114.2 ml/min Estimated GFR () 122.1 Estimated GFR (Non- 105.3 Test 03/02/17 08:38 03/02/17 11:52 03/02/17 17:10 Sodium Level 141 mmol/L Potassium Level 3.6 mmol/L Chloride Level 105 mmol/L Carbon Dioxide Level 26 mmol/L Anion Gap 10.0 mmol/L Blood Urea Nitrogen 5 mg/dl Creatinine 0.46 mg/dl Est Creatinine Clear Calc Drug Dose 156.4 ml/min Estimated GFR () 135.4 Estimated GFR (Non- 116.8 BUN/Creatinine Ratio 10.9 Random Glucose 134 mg/dl Calcium Level 8.7 mg/dl Bedside Glucose 123 mg/dl 106 mg/dl Assessment and Plan 51-year-old female with poorly controlled diabetes mellitus, now with recurrent wound dehiscence at left BKA site, now s/p surgical debridement with significant infection found. Would continue present Rx pending operative cultures. Will follow.
[2017-03-02 23:22] VITALS: BP 149/75; PULSE 65; TEMP 36.6; O2SAT 96
[2017-03-03] MEDS: MoRPHine SULFATE 2 MG/ML CARP IV PRN ×6 (00:11→22:22)
[2017-03-03] MEDS: SODIUM CHLORIDE 0.9% 1000ML 1,000 ML IV SCH ×2 (02:51→16:10)
[2017-03-03 05:28] LABS: HEMATOCRIT 28.4 % (37-47); MEAN CELL VOLUME 86.6 fL (80-100); MEAN CORPUSCULAR HGB CONC 32.4 g/dl (32-36); MEAN PLATELET VOLUME 8.2 fL (7.4-10.4); PLATELET COUNT 306 K/uL (130-400); RED BLOOD COUNT 3.28 M/uL (4.2-5.4); WHITE BLOOD COUNT 6.46 K/uL (4.8-10.8)
[2017-03-03] MEDS: PROMETHAZINE HCL 25 MG TAB PO PRN (06:07)
[2017-03-03] MEDS: LEVOTHYROXINE 112 MCG TAB PO SCH (06:08)
[2017-03-03 06:19] LABS: BASO % 0.3 %; BASO ABS # 0.02 K/uL (0-0.2); COMPLETE YES; EOS % 1.5 %; IG% 1.1 %; LYMPH % 50.3 %; LYMPH ABS # 3.25 K/uL (1.2-3.4); NEUT % 40.8 %
[2017-03-03 07:18] VITALS: BP 145/69; PULSE 66; TEMP 36.6; O2SAT 97
[2017-03-03] MEDS: INSULIN ASPART 100 UNITS/ML 3 ML PEN SC SCH ×3 (08:50→21:30)
[2017-03-03] MEDS: OXYCODONE HCL IR 5 MG TAB (IMMEDIATE RELEASE) PO PRN (08:52)
[2017-03-03] MEDS: INSULIN GLARGINE SOLOSTAR 100 UNITS/ML 3 ML PEN SC SCH ×2 (08:53→21:31)
[2017-03-03] MEDS: DOCUSATE SODIUM 100 MG CAP PO SCH ×2 (08:55→21:26)
[2017-03-03] MEDS: CHOLECALCIFEROL 1000 INTER.UNIT TAB PO SCH (08:55)
[2017-03-03] MEDS: PANTOprazole SOD 40 MG TAB PO SCH (08:55)
[2017-03-03] MEDS: RANITIDINE HCL 150 MG TAB PO SCH ×2 (08:55→21:26)
[2017-03-03] MEDS: ISOSORBIDE MONONITRATE 60 MG TABCR PO SCH ×2 (08:56→21:26)
[2017-03-03] MEDS: ASPIRIN 81 MG ECTAB PO SCH (08:57)
[2017-03-03] MEDS: RANOLAZINE 500 MG ER TAB PO SCH ×2 (08:57→21:27)
--- NOTE | 2017-03-03 09:56 | Orthopedic Progress Note ---
Orthopedic Progress Note Date of Service March 03, 2017. Subjective Post OP Day: 2 Reports: feeling well, pain controlled w PO medications, Denies: SOB, chest pain , complaints, light headedness, nausea / vomiting Objective dressing C/D/I Date Time Temp Pulse Resp B/P Pulse Ox O2 Delivery O2 Flow Rate FiO2 03/03/17 07:45 Room Air 03/03/17 07:18 36.6 66 16 145/69 97 Room Air 03/02/17 23:58 Room Air 03/02/17 23:22 36.6 65 16 149/75 96 Room Air 03/02/17 15:20 Room Air 03/02/17 15:17 37.0 68 18 125/70 96 Room Air 03/02/17 11:46 36.9 71 16 130/71 94 Room Air Laboratory Results 24 Hours: Test 03/03/17 05:10 White Blood Count 6.46 K/uL Red Blood Count 3.28 M/uL Hemoglobin 9.2 g/dL Hematocrit 28.4 % Mean Corpuscular Volume 86.6 fL Mean Corpuscular Hemoglobin 28.0 pg Mean Corpuscular Hemoglobin Concent 32.4 g/dl Platelet Count 306 K/uL Mean Platelet Volume 8.2 fL Neutrophils (%) (Auto) 40.8 % Lymphocytes (%) (Auto) 50.3 % Monocytes (%) (Auto) 6.0 % Eosinophils (%) (Auto) 1.5 % Basophils (%) (Auto) 0.3 % Neutrophils # (Auto) 2.63 K/uL Lymphocytes # (Auto) 3.25 K/uL Monocytes # (Auto) 0.39 K/uL Eosinophils # (Auto) 0.10 K/uL Basophils # (Auto) 0.02 K/uL Assessment & Plan Assessment: POD #2 s/p Revision left below knee amputation, Debridement of skin, fascia, bone left lower extremity patient is 2 weeks s/p left BKA with post-op wound dehiscence Plan: Continue IV Daptomycin, dr benitez consulted awaiting final cultures Wound care. Pain control. Appreciate medicine input. Discharge Planning Discharge Planning: uncertain
--- NOTE | 2017-03-03 10:47 | Pharmacy Progress Note ---
Glycemic Control: Progress Nt Date of Service March 03, 2017. Scope Glycemic Pharmacist consulted by Dean Silva PA-C on 02/26/17 for glycemic control and to write orders per [facility] inpatient glycemic control protocol. Objective Accuchecks BSG (last 24hrs): Test 03/02/17 11:52 03/02/17 17:10 03/02/17 20:27 03/03/17 08:05 Bedside Glucose 123 mg/dl (70-90) 106 mg/dl (70-90) 235 mg/dl (70-90) 241 mg/dl (70-90) Laboratory Data (last 24hrs) Test 03/03/17 05:10 White Blood Count 6.46 K/uL Red Blood Count 3.28 M/uL Hemoglobin 9.2 g/dL Hematocrit 28.4 % Mean Corpuscular Volume 86.6 fL Mean Corpuscular Hemoglobin 28.0 pg Mean Corpuscular Hemoglobin Concent 32.4 g/dl Platelet Count 306 K/uL Mean Platelet Volume 8.2 fL Neutrophils (%) (Auto) 40.8 % Lymphocytes (%) (Auto) 50.3 % Monocytes (%) (Auto) 6.0 % Eosinophils (%) (Auto) 1.5 % Basophils (%) (Auto) 0.3 % Neutrophils # (Auto) 2.63 K/uL Lymphocytes # (Auto) 3.25 K/uL Monocytes # (Auto) 0.39 K/uL Eosinophils # (Auto) 0.10 K/uL Basophils # (Auto) 0.02 K/uL HbA1c: Test 02/27/17 06:03 Hemoglobin A1c 13.5 % (4.5-5.6) H Recent Pertinent Medications Outpatient Anti-diabetic Regimen: * Toujeo 32 units BID plus Humalog 10 units at lunch, 15 units at dinner, and 20 units at bedtime The patient is currently receiving: * Basal insulin: Lantus 32 units every 12 hours * Correctional Insulin: Novolog Correction per scale ACHS Goal Range: Low 140 mg/dL - High 180 mg/dL Correction Factor: 10 mg/dL/unit (overnight reduced to 8 mg/dL/unit) * Prandial insulin: Per carb ratio of 1 unit per 5 grams CHO consumed Risk Factors for Insulin Resistance: * Steroids: dexamethasone 4 mg IV x 1 in OR 03/01/17 * Infection: wound infection s/p surgery still on daptomycin * Recent Surgery: POD 2 after wound surgery * Diet: type 2 diabetic diet Assessment & Plan ASSESSMENT: * 51 y/o F with poorly controlled diabetes admitted 02/26/2017 with LLE open surgical wounds * Patient is currently receiving an average of 111 units of insulin per day * 64 units of basal insulin * 47 units of prandial/correctional insulin * BSGs ranging 106 -385 mg/dL over the past 24hrs * She remains difficult to control during hospitalization. She underwent additional surgery on 03/01/2017 where she received dexamethasone intraoperatively. * I am estimating her current needs to be 125-140 units of insulin per day * Based on this estimation, and her pattern of below goal range BSGs at dinner, make the following changes to regimen: * Increase basal insulin by ~12% * Change CF/CR to 15/4 for Breakfast, Dinner, HS checks * Loosen Lunch time CF/CR to 15/6 to avoid stacking/dinner time dip in BSG PLAN FOR INPATIENT GLYCEMIC CONTROL: * Increase to Lantus 36 units SQ BID starting tonight * Change correction factor to 15 mg/dl/unit * Change carb ratio to 1 unit per 4 grams CHO consumed (B/D/HS) and 6 for Lunch time only * Continue goal range Low 140 mg/dL - High 180 mg/dL RECOMMENDATIONS FOR DISCHARGE: * Compliance with home regimen * Please note that the plan above was derived based on current level of insulin resistance and hospital stress. These recommendations are appropriate for inpatient admission only. Plan of care upon discharge will need to be reassessed to avoid potential outpatient hypo/hyperglycemia. Thank you.
[2017-03-03] MEDS: ALPRAZOLAM 0.5 MG TAB PO SCH ×3 (10:59→21:25)
[2017-03-03] MEDS ORDERED: INSULIN ASPART 100 UNITS/ML 3 ML PEN SC SCH (12:00)
--- NOTE | 2017-03-03 13:02 | Infectious Disease Progress Nt ---
Progress Note Date of Service March 03, 2017. Subjective Pt evaluation today including: conversation w/ patient, physical exam, chart review, lab review, review of studies, conversation w/ instructional design consultant, review of inpatient medication list No new complaints. Remains afebrile. Cultures growing Staph aureus, sensitivities pending. All Other Systems: Reviewed and Negative Medications Current Inpatient Medications Medications (Trade) Dose Ordered Sig/Ochoa Route Start Time Stop Time Status Last Admin Dose Admin Alprazolam (Xanax Tab) 1 mg TID PO 02/26/17 21:00 03/28/17 20:59 03/03/17 10:59 1 MG Aspirin (Ecotrin Tab) 81 mg QAM PO 02/27/17 09:00 03/29/17 08:59 03/03/17 08:57 81 MG Isosorbide Mononitrate (Imdur Ext Rel Tab) 60 mg BID PO 02/26/17 21:00 03/28/17 20:59 03/03/17 08:56 60 MG Levothyroxine Sodium (Synthroid Tab) 112 mcg DAILYBB PO 02/27/17 06:00 03/29/17 05:59 03/03/17 06:08 112 MCG Ondansetron HCl (Zofran Tab) 4 mg Q6H PRN PO 02/26/17 16:30 03/28/17 16:29 03/03/17 00:11 4 MG Promethazine HCl (Phenergan Tab) 25 mg Q6 PRN PO 02/26/17 16:30 03/28/17 16:29 03/03/17 06:07 25 MG Senna/Docusate Sodium (Senokot S Tab) 2 tab HS PRN PO 02/26/17 16:30 03/28/17 16:29 03/03/17 08:56 2 TAB Cholecalciferol (Vitamin D Tab) 2,000 inter.unit DAILY PO 02/27/17 09:00 03/29/17 08:59 03/03/17 08:55 2,000 INTER.UNIT Ranolazine (Ranexa ER Tab) 1,000 mg BID PO 02/26/17 21:00 03/28/17 20:59 03/03/17 08:57 1,000 MG Oxycodone HCl (Roxicodone Immediate Rel Tab) 1 tab for pain rated 1-5 2 t... Q4 PRN PO 02/26/17 16:30 03/12/17 16:29 03/03/17 08:52 10 MG Acetaminophen (Tylenol Tab) 650 mg Q6H PRN PO 02/26/17 16:30 03/28/17 16:29 Diphenhydramine HCl (Benadryl Cap) 25 mg Q8 PRN PO 02/26/17 16:30 03/28/17 16:29 Zolpidem Tartrate (Ambien Tab) 5 mg HSZ PRN PO 02/26/17 16:30 03/28/17 16:29 Al Hydroxide/Mg Hydroxide (Maalox Susp) 30 ml Q6H PRN PO 02/26/17 16:30 03/28/17 16:29 Docusate Sodium (coLACE CAP) 100 mg BID PO 02/26/17 21:00 03/28/17 20:59 03/03/17 08:55 100 MG Ranitidine HCl (zANTac TAB) 150 mg BID PO 02/26/17 21:00 03/28/17 20:59 03/03/17 08:55 150 MG Pantoprazole Sodium (Protonix Tab) 40 mg QAM PO 02/27/17 09:00 03/29/17 08:59 03/03/17 08:55 40 MG Magnesium Hydroxide 30 ml 30 ml Q6H PRN PO 02/26/17 16:30 03/28/17 16:29 Sodium Chloride (Nss 1000ml) 1,000 ml @ 75 mls/hr [id number] IV 02/26/17 16:28 03/28/17 16:27 03/03/17 02:51 75 MLS/HR Daptomycin (Consult) 1 ea UD PRN N/A 02/26/17 18:00 03/28/17 17:59 Miscellaneous Information (Consult Glycemic Management Pharmacy) 1 ea UD PRN N/A 02/26/17 18:00 03/28/17 17:59 Glucose (Glucose 40% Gel) 15-30 GRAMS 15 GRAMS... UD PRN PO 02/26/17 18:45 03/28/17 18:44 Glucose (Glucose Chew Tab) 4-8 Tablets 4 Tabl... UD PRN PO 02/26/17 18:45 03/28/17 18:44 Dextrose (Dextrose 50% 50ML Syringe) 25-50ML OF 50% DW IV FOR... UD PRN IV 02/26/17 18:45 03/28/17 18:44 Glucagon (Glucagon Inj) 1 mg UD PRN SQ 02/26/17 18:45 03/28/17 18:44 Heparin Sodium (Porcine) (Heparin 100 Unit/ml 5ml Flush) 5 ml PRN PRN IV 02/27/17 07:15 03/29/17 07:14 Morphine Sulfate 2 mg 2 mg Q2H PRN IV 02/28/17 07:45 03/14/17 07:44 03/03/17 12:32 2 MG Daptomycin/Sodium Chloride (Cubicin IV/Nss 50ml) 57 ml @ 100 mls/hr DAILY@1900 IV 03/01/17 19:00 03/08/17 18:59 03/02/17 18:32 100 MLS/HR Insulin Aspart (novoLOG ASPART) SLIDING SCALE DAILY@1200 SC 03/03/17 12:00 04/02/17 11:59 Insulin Aspart (novoLOG ASPART) SLIDING SCALE TID@0800,1715,2100 SC 03/03/17 17:15 04/02/17 17:14 Insulin Glargine (Lantus Solostar Pen) 36 unit BID SC 03/03/17 21:00 04/02/17 20:59 Objective Vital Signs Date Time Temp Pulse Resp B/P Pulse Ox O2 Delivery O2 Flow Rate FiO2 03/03/17 07:45 Room Air 03/03/17 07:18 36.6 66 16 145/69 97 Room Air 03/02/17 23:58 Room Air 03/02/17 23:22 36.6 65 16 149/75 96 Room Air 03/02/17 15:20 Room Air 03/02/17 15:17 37.0 68 18 125/70 96 Room Air Physical Exam General Appearance: WD/WN, no apparent distress Eyes: normal inspection, sclerae normal ENT: normal ENT inspection, pharynx normal Neck: supple, no adenopathy, trachea midline Respiratory/Chest: chest non-tender, lungs clear, normal breath sounds, no respiratory distress Cardiovascular: regular rate, rhythm, no gallop, no murmur Abdomen: normal bowel sounds, non tender, soft, no organomegaly Extremities: non-tender, no calf tenderness Neurologic/Psychiatric: alert, oriented x 3 Skin: normal color, no rash Lymphatic: no adenopathy Laboratory Results Last 24 Hours Test 03/02/17 17:10 03/02/17 20:27 03/03/17 05:10 03/03/17 08:05 Bedside Glucose 106 mg/dl 235 mg/dl 241 mg/dl White Blood Count 6.46 K/uL Red Blood Count 3.28 M/uL Hemoglobin 9.2 g/dL Hematocrit 28.4 % Mean Corpuscular Volume 86.6 fL Mean Corpuscular Hemoglobin 28.0 pg Mean Corpuscular Hemoglobin Concent 32.4 g/dl Platelet Count 306 K/uL Mean Platelet Volume 8.2 fL Neutrophils (%) (Auto) 40.8 % Lymphocytes (%) (Auto) 50.3 % Monocytes (%) (Auto) 6.0 % Eosinophils (%) (Auto) 1.5 % Basophils (%) (Auto) 0.3 % Neutrophils # (Auto) 2.63 K/uL Lymphocytes # (Auto) 3.25 K/uL Monocytes # (Auto) 0.39 K/uL Eosinophils # (Auto) 0.10 K/uL Basophils # (Auto) 0.02 K/uL RDW Standard Deviation 41.2 fL RDW Coefficient of Variation 12.8 % Immature Granulocyte % (Auto) 1.1 % Immature Granulocyte # (Auto) 0.07 K/uL Red Blood Cell Morphology Unremarkable Test 03/03/17 12:20 Bedside Glucose 83 mg/dl Assessment and Plan 51-year-old female with poorly controlled diabetes mellitus, now with recurrent wound dehiscence at left BKA site, now s/p surgical debridement with significant infection found. Would continue present Rx pending final sensitivities. Will follow.
--- NOTE | 2017-03-03 14:02 | Family Medicine Progress Note ---
Progress Note Date of Service March 03, 2017. Subjective Pt evaluation today including: conversation w/ patient, physical exam, chart review, lab review Pain: well controlled PO Intake: good Voiding: no voiding problems Doing better. The pain is well controlled. Denies fevers/chills, chest pain, difficulty breathing. Still has not had a bowel movement but is reluctant to try MiraLAX Constitutional: No chills, No fever Eyes: No worsening of vision ENT: No hearing loss Respiratory: No cough, No sputum Cardiovascular: No chest pain Abdomen: + constipation, No nausea, No pain Musculoskeletal: + problem reported (left BKA revision) Heme: No abnormal bleeding/bruising Medications Current Inpatient Medications Medications (Trade) Dose Ordered Sig/Ochoa Route Start Time Stop Time Status Last Admin Dose Admin Alprazolam (Xanax Tab) 1 mg TID PO 02/26/17 21:00 03/28/17 20:59 03/03/17 10:59 1 MG Aspirin (Ecotrin Tab) 81 mg QAM PO 02/27/17 09:00 03/29/17 08:59 03/03/17 08:57 81 MG Isosorbide Mononitrate (Imdur Ext Rel Tab) 60 mg BID PO 02/26/17 21:00 03/28/17 20:59 03/03/17 08:56 60 MG Levothyroxine Sodium (Synthroid Tab) 112 mcg DAILYBB PO 02/27/17 06:00 03/29/17 05:59 03/03/17 06:08 112 MCG Ondansetron HCl (Zofran Tab) 4 mg Q6H PRN PO 02/26/17 16:30 03/28/17 16:29 03/03/17 00:11 4 MG Promethazine HCl (Phenergan Tab) 25 mg Q6 PRN PO 02/26/17 16:30 03/28/17 16:29 03/03/17 06:07 25 MG Senna/Docusate Sodium (Senokot S Tab) 2 tab HS PRN PO 02/26/17 16:30 03/28/17 16:29 03/03/17 08:56 2 TAB Cholecalciferol (Vitamin D Tab) 2,000 inter.unit DAILY PO 02/27/17 09:00 03/29/17 08:59 03/03/17 08:55 2,000 INTER.UNIT Ranolazine (Ranexa ER Tab) 1,000 mg BID PO 02/26/17 21:00 03/28/17 20:59 03/03/17 08:57 1,000 MG Oxycodone HCl (Roxicodone Immediate Rel Tab) 1 tab for pain rated 1-5 2 t... Q4 PRN PO 02/26/17 16:30 03/12/17 16:29 03/03/17 08:52 10 MG Acetaminophen (Tylenol Tab) 650 mg Q6H PRN PO 02/26/17 16:30 03/28/17 16:29 Diphenhydramine HCl (Benadryl Cap) 25 mg Q8 PRN PO 02/26/17 16:30 03/28/17 16:29 Zolpidem Tartrate (Ambien Tab) 5 mg HSZ PRN PO 02/26/17 16:30 03/28/17 16:29 Al Hydroxide/Mg Hydroxide (Maalox Susp) 30 ml Q6H PRN PO 02/26/17 16:30 03/28/17 16:29 Docusate Sodium (coLACE CAP) 100 mg BID PO 02/26/17 21:00 03/28/17 20:59 03/03/17 08:55 100 MG Ranitidine HCl (zANTac TAB) 150 mg BID PO 02/26/17 21:00 03/28/17 20:59 03/03/17 08:55 150 MG Pantoprazole Sodium (Protonix Tab) 40 mg QAM PO 02/27/17 09:00 03/29/17 08:59 03/03/17 08:55 40 MG Magnesium Hydroxide 30 ml 30 ml Q6H PRN PO 02/26/17 16:30 03/28/17 16:29 Sodium Chloride (Nss 1000ml) 1,000 ml @ 75 mls/hr [id number] IV 02/26/17 16:28 03/28/17 16:27 03/03/17 02:51 75 MLS/HR Daptomycin (Consult) 1 ea UD PRN N/A 02/26/17 18:00 03/28/17 17:59 Miscellaneous Information (Consult Glycemic Management Pharmacy) 1 ea UD PRN N/A 02/26/17 18:00 03/28/17 17:59 Glucose (Glucose 40% Gel) 15-30 GRAMS 15 GRAMS... UD PRN PO 02/26/17 18:45 03/28/17 18:44 Glucose (Glucose Chew Tab) 4-8 Tablets 4 Tabl... UD PRN PO 02/26/17 18:45 03/28/17 18:44 Dextrose (Dextrose 50% 50ML Syringe) 25-50ML OF 50% DW IV FOR... UD PRN IV 02/26/17 18:45 03/28/17 18:44 Glucagon (Glucagon Inj) 1 mg UD PRN SQ 02/26/17 18:45 03/28/17 18:44 Heparin Sodium (Porcine) (Heparin 100 Unit/ml 5ml Flush) 5 ml PRN PRN IV 02/27/17 07:15 03/29/17 07:14 Morphine Sulfate 2 mg 2 mg Q2H PRN IV 02/28/17 07:45 03/14/17 07:44 03/03/17 06:05 2 MG Daptomycin/Sodium Chloride (Cubicin IV/Nss 50ml) 57 ml @ 100 mls/hr DAILY@1900 IV 03/01/17 19:00 03/08/17 18:59 03/02/17 18:32 100 MLS/HR Insulin Aspart (novoLOG ASPART) SLIDING SCALE DAILY@1200 SC 03/03/17 12:00 04/02/17 11:59 Insulin Aspart (novoLOG ASPART) SLIDING SCALE TID@0800,1715,2100 SC 03/03/17 17:15 04/02/17 17:14 Insulin Glargine (Lantus Solostar Pen) 36 unit BID SC 03/03/17 21:00 04/02/17 20:59 Objective Vital Signs Date Time Temp Pulse Resp B/P Pulse Ox O2 Delivery O2 Flow Rate FiO2 03/03/17 07:45 Room Air 03/03/17 07:18 36.6 66 16 145/69 97 Room Air 03/02/17 23:58 Room Air 03/02/17 23:22 36.6 65 16 149/75 96 Room Air 03/02/17 15:20 Room Air 03/02/17 15:17 37.0 68 18 125/70 96 Room Air Physical Exam General Appearance: WD/WN, no apparent distress Eyes: normal inspection ENT: normal ENT inspection, hearing grossly normal Neck: supple Respiratory/Chest: chest non-tender, lungs clear, normal breath sounds, no respiratory distress, no accessory muscle use Cardiovascular: regular rate, rhythm Abdomen: normal bowel sounds, non tender, soft Extremities: + pertinent finding (b/l BKA. s/p left BKA revision ) Neurologic/Psychiatric: alert, normal mood/affect, oriented x 3 Skin: normal color Laboratory Results Current Inpatient Medications Medications (Trade) Dose Ordered Sig/Ochoa Route Start Time Stop Time Status Last Admin Dose Admin Alprazolam (Xanax Tab) 1 mg TID PO 02/26/17 21:00 03/28/17 20:59 03/03/17 10:59 1 MG Aspirin (Ecotrin Tab) 81 mg QAM PO 02/27/17 09:00 03/29/17 08:59 03/03/17 08:57 81 MG Isosorbide Mononitrate (Imdur Ext Rel Tab) 60 mg BID PO 02/26/17 21:00 03/28/17 20:59 03/03/17 08:56 60 MG Levothyroxine Sodium (Synthroid Tab) 112 mcg DAILYBB PO 02/27/17 06:00 03/29/17 05:59 03/03/17 06:08 112 MCG Ondansetron HCl (Zofran Tab) 4 mg Q6H PRN PO 02/26/17 16:30 03/28/17 16:29 03/03/17 00:11 4 MG Promethazine HCl (Phenergan Tab) 25 mg Q6 PRN PO 02/26/17 16:30 03/28/17 16:29 03/03/17 06:07 25 MG Senna/Docusate Sodium (Senokot S Tab) 2 tab HS PRN PO 02/26/17 16:30 03/28/17 16:29 03/03/17 08:56 2 TAB Cholecalciferol (Vitamin D Tab) 2,000 inter.unit DAILY PO 02/27/17 09:00 03/29/17 08:59 03/03/17 08:55 2,000 INTER.UNIT Ranolazine (Ranexa ER Tab) 1,000 mg BID PO 02/26/17 21:00 03/28/17 20:59 03/03/17 08:57 1,000 MG Oxycodone HCl (Roxicodone Immediate Rel Tab) 1 tab for pain rated 1-5 2 t... Q4 PRN PO 02/26/17 16:30 03/12/17 16:29 03/03/17 08:52 10 MG Acetaminophen (Tylenol Tab) 650 mg Q6H PRN PO 02/26/17 16:30 03/28/17 16:29 Diphenhydramine HCl (Benadryl Cap) 25 mg Q8 PRN PO 02/26/17 16:30 03/28/17 16:29 Zolpidem Tartrate (Ambien Tab) 5 mg HSZ PRN PO 02/26/17 16:30 03/28/17 16:29 Al Hydroxide/Mg Hydroxide (Maalox Susp) 30 ml Q6H PRN PO 02/26/17 16:30 03/28/17 16:29 Docusate Sodium (coLACE CAP) 100 mg BID PO 02/26/17 21:00 03/28/17 20:59 03/03/17 08:55 100 MG Ranitidine HCl (zANTac TAB) 150 mg BID PO 02/26/17 21:00 03/28/17 20:59 03/03/17 08:55 150 MG Pantoprazole Sodium (Protonix Tab) 40 mg QAM PO 02/27/17 09:00 03/29/17 08:59 03/03/17 08:55 40 MG Magnesium Hydroxide 30 ml 30 ml Q6H PRN PO 02/26/17 16:30 03/28/17 16:29 Sodium Chloride (Nss 1000ml) 1,000 ml @ 75 mls/hr [id number] IV 02/26/17 16:28 03/28/17 16:27 03/03/17 02:51 75 MLS/HR Daptomycin (Consult) 1 ea UD PRN N/A 02/26/17 18:00 03/28/17 17:59 Miscellaneous Information (Consult Glycemic Management Pharmacy) 1 ea UD PRN N/A 02/26/17 18:00 03/28/17 17:59 Glucose (Glucose 40% Gel) 15-30 GRAMS 15 GRAMS... UD PRN PO 02/26/17 18:45 03/28/17 18:44 Glucose (Glucose Chew Tab) 4-8 Tablets 4 Tabl... UD PRN PO 02/26/17 18:45 03/28/17 18:44 Dextrose (Dextrose 50% 50ML Syringe) 25-50ML OF 50% DW IV FOR... UD PRN IV 02/26/17 18:45 03/28/17 18:44 Glucagon (Glucagon Inj) 1 mg UD PRN SQ 02/26/17 18:45 03/28/17 18:44 Heparin Sodium (Porcine) (Heparin 100 Unit/ml 5ml Flush) 5 ml PRN PRN IV 02/27/17 07:15 03/29/17 07:14 Morphine Sulfate 2 mg 2 mg Q2H PRN IV 02/28/17 07:45 03/14/17 07:44 03/03/17 06:05 2 MG Daptomycin/Sodium Chloride (Cubicin IV/Nss 50ml) 57 ml @ 100 mls/hr DAILY@1900 IV 03/01/17 19:00 03/08/17 18:59 03/02/17 18:32 100 MLS/HR Insulin Aspart (novoLOG ASPART) SLIDING SCALE DAILY@1200 SC 03/03/17 12:00 04/02/17 11:59 Insulin Aspart (novoLOG ASPART) SLIDING SCALE TID@0800,1715,2100 SC 03/03/17 17:15 04/02/17 17:14 Insulin Glargine (Lantus Solostar Pen) 36 unit BID SC 03/03/17 21:00 04/02/17 20:59 Assessment and Plan 51-year-old female with past medical history of type 2 diabetes, status post bilateral below-knee amputation presented with complaints of left BKA wound dehiscence . Status post left BKA revision Wound dehiscence: - status post left BKA revision. - Wound culture growing staph aureus - Infectious disease consult- appreciate input - Continue daptomycin - Pain control per primary service Uncontrolled diabetes: -Hemoglobin A1c at 13.6 - Pharmacy glycemic consult- appreciate recs - Increase to Lantus 36 units SQ BID starting tonight * Change correction factor to 15 mg/dl/unit * Change carb ratio to 1 unit per 4 grams CHO consumed (B/D/HS) and 6 for Lunch time only * Tighten goal range Low 110 mg/dL - High 150 mg/dL Hypertension/coronary artery disease: - continue Ranexa, Imdur Hypothyroidism: -Continue Synthroid Constipation: -Continue Colace, may try MiraLAX [facility] Involvement: Resident Care Provided Care Provided: Adult [facility] Medicine Reviewed: Pt Seen/Exam by Me History felt nauseous this am and blood sugar elevated again. received phenargan Constitutional: denies: fever Respiratory: negative: short of breath Cardiovascular: denies chest pain General Appearance: no apparent distress Respiratory: no respiratory distress Cardiovascular: regular rate, rhythm Extremities: other (bilateral BKA. left in dressing) Neurologic/Psychiatric: alert, oriented x 3 Skin Characteristics: warm/dry Assessment/Plan I have reviewed the medical record and performed a history and physical examination of this patient today. I have discussed the case with Dr. Nova. The above note reflects my findings, conclusions, and recommendations.
[2017-03-03 15:00] VITALS: BP 112/65; PULSE 67; TEMP 36.7; O2SAT 94
[2017-03-03] MEDS: DAPTOmycin IV 350 MG in SODIUM CHLORIDE 0.9% 50ML 50 ML IV SCH (19:16)
[2017-03-03 23:16] VITALS: BP 147/68; PULSE 70; TEMP 36.7; O2SAT 98
[2017-03-04 05:26] LABS: HEMATOCRIT 30.4 % (37-47); MEAN CELL VOLUME 87.1 fL (80-100); MEAN CORPUSCULAR HEMOGLOBIN 28.4 pg (25-34); MEAN CORPUSCULAR HGB CONC 32.6 g/dl (32-36); MEAN PLATELET VOLUME 8.3 fL (7.4-10.4); PLATELET COUNT 313 K/uL (130-400); RED BLOOD COUNT 3.49 M/uL (4.2-5.4); WHITE BLOOD COUNT 5.97 K/uL (4.8-10.8)
[2017-03-04] MEDS: SODIUM CHLORIDE 0.9% 1000ML 1,000 ML IV SCH ×2 (05:35→18:45)
[2017-03-04] MEDS: LEVOTHYROXINE 112 MCG TAB PO SCH (05:36)
[2017-03-04] MEDS: MoRPHine SULFATE 2 MG/ML CARP IV PRN ×3 (05:37→21:42)
[2017-03-04 06:03] LABS: BASO % 0.3 %; BASO ABS # 0.02 K/uL (0-0.2); COMPLETE YES; EOS % 1.2 %; IG% 1.2 %; LYMPH % 50.9 %; LYMPH ABS # 3.04 K/uL (1.2-3.4); MONO % 6.2 %; NEUT % 40.2 %
[2017-03-04 06:13] LABS: CREATININE 0.6 mg/dl (0.60-1.20)
[2017-03-04 07:22] VITALS: BP 156/79; PULSE 76; TEMP 36.7; O2SAT 97
--- NOTE | 2017-03-04 08:22 | Orthopedic Progress Note ---
Orthopedic Progress Note Date of Service March 04, 2017. Subjective Reports: feeling well, Denies: SOB, calf pain, chest pain, complaints, light headedness, nausea / vomiting Additional Notes: Essentially no pain at BKA site. No F/C. No N/N/D. Objective calves soft nontender, N/V intact, capillary refill less than 2 sec., dressing C /D/I, incision C/D/I, A&O x3 Left BKA dressing/splint changed. Prevena intact. Stump benign. Deep drain pulled. No active D/C. No streaking. No erythema. Date Time Temp Pulse Resp B/P Pulse Ox O2 Delivery O2 Flow Rate FiO2 03/04/17 07:22 36.7 76 16 156/79 97 Room Air 03/03/17 23:48 Room Air 03/03/17 23:16 36.7 70 16 147/68 98 Room Air 03/03/17 16:08 Room Air 03/03/17 15:00 36.7 67 18 112/65 94 Room Air Laboratory Results 24 Hours: Test 03/04/17 05:10 White Blood Count 5.97 K/uL Red Blood Count 3.49 M/uL Hemoglobin 9.9 g/dL Hematocrit 30.4 % Mean Corpuscular Volume 87.1 fL Mean Corpuscular Hemoglobin 28.4 pg Mean Corpuscular Hemoglobin Concent 32.6 g/dl Platelet Count 313 K/uL Mean Platelet Volume 8.3 fL Neutrophils (%) (Auto) 40.2 % Lymphocytes (%) (Auto) 50.9 % Monocytes (%) (Auto) 6.2 % Eosinophils (%) (Auto) 1.2 % Basophils (%) (Auto) 0.3 % Neutrophils # (Auto) 2.40 K/uL Lymphocytes # (Auto) 3.04 K/uL Monocytes # (Auto) 0.37 K/uL Eosinophils # (Auto) 0.07 K/uL Basophils # (Auto) 0.02 K/uL Assessment & Plan Assessment: POD #3 s/p Revision left below knee amputation, Debridement of skin, fascia, bone left lower extremity patient is 2 weeks s/p left BKA with post-op wound dehiscence-Improved after surgery and IV anbx. Plan: Continue IV Daptomycin- final cultures lyle sensitive Staph Wound care. Pain control. Appreciate medicine input. Await final anbx choices and route of use IV vs PO Possible D/C today or tomorrow F/U next week in clinic w/ Dr Ramos Inhouse Planning Pain Management: Toradol, Oxy IR DVT Prophylaxis: ASA Discharge Planning Discharge Planning: uncertain
[2017-03-04] MEDS: ISOSORBIDE MONONITRATE 60 MG TABCR PO SCH ×2 (08:59→21:14)
[2017-03-04] MEDS: OXYCODONE HCL IR 5 MG TAB (IMMEDIATE RELEASE) PO PRN ×2 (08:59→12:53)
[2017-03-04] MEDS: ALPRAZOLAM 0.5 MG TAB PO SCH ×3 (08:59→21:14)
[2017-03-04] MEDS: CHOLECALCIFEROL 1000 INTER.UNIT TAB PO SCH (08:59)
[2017-03-04] MEDS: RANOLAZINE 500 MG ER TAB PO SCH ×2 (09:00→21:14)
[2017-03-04] MEDS: RANITIDINE HCL 150 MG TAB PO SCH ×2 (09:00→21:14)
[2017-03-04] MEDS: PANTOprazole SOD 40 MG TAB PO SCH (09:00)
[2017-03-04] MEDS: DOCUSATE SODIUM 100 MG CAP PO SCH ×2 (09:00→21:14)
[2017-03-04] MEDS: ASPIRIN 81 MG ECTAB PO SCH (09:00)
[2017-03-04] MEDS: INSULIN ASPART 100 UNITS/ML 3 ML PEN SC SCH ×4 (09:05→21:41)
[2017-03-04] MEDS: INSULIN GLARGINE SOLOSTAR 100 UNITS/ML 3 ML PEN SC SCH ×2 (09:06→21:13)
--- NOTE | 2017-03-04 09:32 | Infectious Disease Progress Nt ---
Progress Note Date of Service March 04, 2017. Subjective Pt evaluation today including: conversation w/ patient, physical exam, chart review, lab review, review of studies, conversation w/ curriculum consultant, review of inpatient medication list Offers no new complaints. Pain controlled. No fever. Tolerating Abx. Culture has grown MSSA. All Other Systems: Reviewed and Negative Medications Current Inpatient Medications Medications (Trade) Dose Ordered Sig/Ochoa Route Start Time Stop Time Status Last Admin Dose Admin Alprazolam (Xanax Tab) 1 mg TID PO 02/26/17 21:00 03/28/17 20:59 03/04/17 08:59 1 MG Aspirin (Ecotrin Tab) 81 mg QAM PO 02/27/17 09:00 03/29/17 08:59 03/04/17 09:00 81 MG Isosorbide Mononitrate (Imdur Ext Rel Tab) 60 mg BID PO 02/26/17 21:00 03/28/17 20:59 03/04/17 08:59 60 MG Levothyroxine Sodium (Synthroid Tab) 112 mcg DAILYBB PO 02/27/17 06:00 03/29/17 05:59 03/04/17 05:36 112 MCG Ondansetron HCl (Zofran Tab) 4 mg Q6H PRN PO 02/26/17 16:30 03/28/17 16:29 03/03/17 00:11 4 MG Promethazine HCl (Phenergan Tab) 25 mg Q6 PRN PO 02/26/17 16:30 03/28/17 16:29 03/03/17 06:07 25 MG Senna/Docusate Sodium (Senokot S Tab) 2 tab HS PRN PO 02/26/17 16:30 03/28/17 16:29 03/03/17 08:56 2 TAB Cholecalciferol (Vitamin D Tab) 2,000 inter.unit DAILY PO 02/27/17 09:00 03/29/17 08:59 03/04/17 08:59 2,000 INTER.UNIT Ranolazine (Ranexa ER Tab) 1,000 mg BID PO 02/26/17 21:00 03/28/17 20:59 03/04/17 09:00 1,000 MG Oxycodone HCl (Roxicodone Immediate Rel Tab) 1 tab for pain rated 1-5 2 t... Q4 PRN PO 02/26/17 16:30 03/12/17 16:29 03/04/17 08:59 10 MG Acetaminophen (Tylenol Tab) 650 mg Q6H PRN PO 02/26/17 16:30 03/28/17 16:29 Diphenhydramine HCl (Benadryl Cap) 25 mg Q8 PRN PO 02/26/17 16:30 03/28/17 16:29 Zolpidem Tartrate (Ambien Tab) 5 mg HSZ PRN PO 02/26/17 16:30 03/28/17 16:29 Al Hydroxide/Mg Hydroxide (Maalox Susp) 30 ml Q6H PRN PO 02/26/17 16:30 03/28/17 16:29 Docusate Sodium (coLACE CAP) 100 mg BID PO 02/26/17 21:00 03/28/17 20:59 03/04/17 09:00 100 MG Ranitidine HCl (zANTac TAB) 150 mg BID PO 02/26/17 21:00 03/28/17 20:59 03/04/17 09:00 150 MG Pantoprazole Sodium (Protonix Tab) 40 mg QAM PO 02/27/17 09:00 03/29/17 08:59 03/04/17 09:00 40 MG Magnesium Hydroxide 30 ml 30 ml Q6H PRN PO 02/26/17 16:30 03/28/17 16:29 Sodium Chloride (Nss 1000ml) 1,000 ml @ 75 mls/hr [id number] IV 02/26/17 16:28 03/28/17 16:27 03/04/17 05:35 75 MLS/HR Daptomycin (Consult) 1 ea UD PRN N/A 02/26/17 18:00 03/28/17 17:59 Miscellaneous Information (Consult Glycemic Management Pharmacy) 1 ea UD PRN N/A 02/26/17 18:00 03/28/17 17:59 Glucose (Glucose 40% Gel) 15-30 GRAMS 15 GRAMS... UD PRN PO 02/26/17 18:45 03/28/17 18:44 Glucose (Glucose Chew Tab) 4-8 Tablets 4 Tabl... UD PRN PO 02/26/17 18:45 03/28/17 18:44 Dextrose (Dextrose 50% 50ML Syringe) 25-50ML OF 50% DW IV FOR... UD PRN IV 02/26/17 18:45 03/28/17 18:44 Glucagon (Glucagon Inj) 1 mg UD PRN SQ 02/26/17 18:45 03/28/17 18:44 Heparin Sodium (Porcine) (Heparin 100 Unit/ml 5ml Flush) 5 ml PRN PRN IV 02/27/17 07:15 03/29/17 07:14 Morphine Sulfate 2 mg 2 mg Q2H PRN IV 02/28/17 07:45 03/14/17 07:44 03/04/17 05:37 2 MG Daptomycin/Sodium Chloride (Cubicin IV/Nss 50ml) 57 ml @ 100 mls/hr DAILY@1900 IV 03/01/17 19:00 03/08/17 18:59 03/03/17 19:16 100 MLS/HR Insulin Glargine (Lantus Solostar Pen) 36 unit BID SC 03/03/17 21:00 04/02/17 20:59 03/04/17 09:06 36 UNIT Insulin Aspart (novoLOG ASPART) SLIDING SCALE BID@1715,2100 SC 03/04/17 17:15 04/03/17 17:14 Insulin Aspart (novoLOG ASPART) SLIDING SCALE BID@0800,1200 SC 03/04/17 08:00 04/03/17 07:59 03/04/17 09:05 2 UNITS Objective Vital Signs Date Time Temp Pulse Resp B/P Pulse Ox O2 Delivery O2 Flow Rate FiO2 03/04/17 08:14 Room Air 03/04/17 07:22 36.7 76 16 156/79 97 Room Air 03/03/17 23:48 Room Air 03/03/17 23:16 36.7 70 16 147/68 98 Room Air 03/03/17 16:08 Room Air 03/03/17 15:00 36.7 67 18 112/65 94 Room Air Physical Exam General Appearance: WD/WN, no apparent distress Eyes: normal inspection, sclerae normal ENT: normal ENT inspection, pharynx normal Neck: supple, no adenopathy, trachea midline Respiratory/Chest: lungs clear, normal breath sounds, no respiratory distress Cardiovascular: regular rate, rhythm, no gallop, no murmur Abdomen: normal bowel sounds, non tender, soft, no organomegaly Extremities: non-tender, normal capillary refill Neurologic/Psychiatric: alert, oriented x 3 Skin: normal color, no rash, + pertinent finding (dressing intact) Lymphatic: no adenopathy Laboratory Results RUN DATE: 03/04/17 [facility] PAGE 1 RUN TIME: 704 Specimen Inquiry PATIENT: JIMMY DEL RIO LOC: [facility] U # : [id number] AGE/SX: 51/F ROOM: [facility] REG : 02/26/[address]: Dom Ramos D.O. : 1965 BED: 1 DIS : STATUS: ADM IN TLOC: SPEC #: [id number] FELY: 03/01/17-1300 STATUS: RES REQ #: [id number] RECD: 03/01/17-[address]: Dom Ramos D.O. SOURCE: DRAIN-DEEP ENTR: 03/01/[address] [facility] [address]: Perry Laird M.D. [facility] Charles Jesus M.[facility]. Patterson, Jennifer., D.O. Singh, Madhavi, M.D. Gurram, Shwetha, MD ORDERED: AER/NAVID CULTSMR Procedure Result Verified Site GRAM STAIN Final 03/01/17 RESULT NO ORGANISMS SEEN MODERATE WBCs SEEN OR AER/NAVID CULT Preliminary 03/04/17 Organism 1 STAPHYLOCOCCUS AUREUS QUANITY RARE SENS SENSITIVITY TO FOLLOW 1. STAPHYLOCOCCUS AUREUS Target Route Dose RX AB Cost M.I.C. IQ ------ ----- ------ -- ------ -------- - ------ TRIMET/SULFA S <=0.5/ 9.5 * OXACILLIN S <=0.25 VANCOMYCIN S 2 ERYTHROMYCIN S <=0.5 TETRACYCLINE S <=4 CLINDAMYCIN S <=0.5 DAPTOMYCIN S <=0.5 S = SENSITIVE I = INTERMEDIATE R = RESISTANT END OF REPORT Last 24 Hours Test 03/03/17 12:20 03/03/17 17:27 03/03/17 20:44 03/04/17 05:10 Bedside Glucose 83 mg/dl 123 mg/dl 193 mg/dl White Blood Count 5.97 K/uL Red Blood Count 3.49 M/uL Hemoglobin 9.9 g/dL Hematocrit 30.4 % Mean Corpuscular Volume 87.1 fL Mean Corpuscular Hemoglobin 28.4 pg Mean Corpuscular Hemoglobin Concent 32.6 g/dl Platelet Count 313 K/uL Mean Platelet Volume 8.3 fL Neutrophils (%) (Auto) 40.2 % Lymphocytes (%) (Auto) 50.9 % Monocytes (%) (Auto) 6.2 % Eosinophils (%) (Auto) 1.2 % Basophils (%) (Auto) 0.3 % Neutrophils # (Auto) 2.40 K/uL Lymphocytes # (Auto) 3.04 K/uL Monocytes # (Auto) 0.37 K/uL Eosinophils # (Auto) 0.07 K/uL Basophils # (Auto) 0.02 K/uL RDW Standard Deviation 41.9 fL RDW Coefficient of Variation 13.1 % Immature Granulocyte % (Auto) 1.2 % Immature Granulocyte # (Auto) 0.07 K/uL Red Blood Cell Morphology Unremarkable Creatinine 0.60 mg/dl Est Creatinine Clear Calc Drug Dose 119.9 ml/min Estimated GFR () 124.0 Estimated GFR (Non- 107.0 Total Creatine Kinase 86 U/L Test 03/04/17 08:12 Bedside Glucose 186 mg/dl Assessment and Plan 51-year-old female with poorly controlled diabetes mellitus, now with recurrent wound dehiscence at left BKA site, now s/p surgical debridement with significant infection found. Culture positive for MSSA. Have changed patient to IV cefazolin for now. Will likely require prolonged antibiotic therapy. Will follow.
[2017-03-04] MEDS ORDERED: CEFAZOLIN IV 2,000 MG in DEXTROSE 5% 50ML 50 ML IV SCH (10:00)
[2017-03-04] MEDS: PROMETHAZINE HCL 25 MG TAB PO PRN (10:02)
--- NOTE | 2017-03-04 11:32 | Pharmacy Progress Note ---
Glycemic Control: Progress Nt Date of Service March 04, 2017. Scope Glycemic Pharmacist consulted by Dean Silva PA-C on 03/04/17 for glycemic control and to write orders per [facility] inpatient glycemic control protocol. Objective Accuchecks BSG (last 24hrs): Test 03/03/17 12:20 03/03/17 17:27 03/03/17 20:44 03/04/17 08:12 Bedside Glucose 83 mg/dl (70-90) 123 mg/dl (70-90) 193 mg/dl (70-90) 186 mg/dl (70-90) Laboratory Data (last 24hrs) Test 03/04/17 05:10 Creatinine 0.60 mg/dl White Blood Count 5.97 K/uL Red Blood Count 3.49 M/uL Hemoglobin 9.9 g/dL Hematocrit 30.4 % Mean Corpuscular Volume 87.1 fL Mean Corpuscular Hemoglobin 28.4 pg Mean Corpuscular Hemoglobin Concent 32.6 g/dl Platelet Count 313 K/uL Mean Platelet Volume 8.3 fL Neutrophils (%) (Auto) 40.2 % Lymphocytes (%) (Auto) 50.9 % Monocytes (%) (Auto) 6.2 % Eosinophils (%) (Auto) 1.2 % Basophils (%) (Auto) 0.3 % Neutrophils # (Auto) 2.40 K/uL Lymphocytes # (Auto) 3.04 K/uL Monocytes # (Auto) 0.37 K/uL Eosinophils # (Auto) 0.07 K/uL Basophils # (Auto) 0.02 K/uL HbA1c: Test 02/27/17 06:03 Hemoglobin A1c 13.5 % (4.5-5.6) H Recent Pertinent Medications Outpatient Anti-diabetic Regimen: * Toujeo 32 units BID plus Humalog 10 units at lunch, 15 units at dinner, and 20 units at bedtime Risk Factors for Insulin Resistance: * Infection * Recent Surgery * Diet Assessment & Plan ASSESSMENT: * 51 y/o F with poorly controlled diabetes admitted 02/26/2017 with LLE open surgical wounds * Patient is currently receiving an average of 102 units of insulin per day * 68 units of basal insulin * 34 units of prandial/correctional insulin * BSGs ranging 83 -247 mg/dL over the past 24hrs * I am estimating her current needs to be ~100 units of insulin per day * Based on this estimation, and her pattern of below goal range BSGs at lunch and dinner, make the following changes to regimen: * Change CF/CR to 15/6 for Breakfast, Lunch * Continue looser CF/CR for Dinner, HS * Current insulin regimen is not split 50/50 which would be ideal for basal bolus regimen, however, patient has been difficult to manage and she uses higher basal at home- at this point I am going to continue higher basal ratio X 24 hours and reassess in the AM PLAN FOR INPATIENT GLYCEMIC CONTROL: * Continue Lantus 36 units SQ BID * Continue correction factor of 15 mg/dl/unit * Change carb ratio to 1 unit per 6 grams CHO consumed (B/L) and 4 for (D/HS) * Continue goal range Low 140 mg/dL - High 180 mg/dL RECOMMENDATIONS FOR DISCHARGE: * Compliance with home regimen * Please note that the plan above was derived based on current level of insulin resistance and hospital stress. These recommendations are appropriate for inpatient admission only. Plan of care upon discharge will need to be reassessed to avoid potential outpatient hypo/hyperglycemia. Thank you.
--- NOTE | 2017-03-04 12:28 | Hospitalist Progress Note ---
Hospitalist Progress Note Date of Service March 04, 2017. Subjective no concerns today looking forward to going home. no more nausea today Constitutional: No fever Respiratory: No shortness of breath Cardiovascular: No chest pain Abdomen: No nausea, No pain Objective Vital Signs Date Time Temp Pulse Resp B/P Pulse Ox O2 Delivery O2 Flow Rate FiO2 03/04/17 08:14 Room Air 03/04/17 07:22 36.7 76 16 156/79 97 Room Air 03/03/17 23:48 Room Air 03/03/17 23:16 36.7 70 16 147/68 98 Room Air 03/03/17 16:08 Room Air 03/03/17 15:00 36.7 67 18 112/65 94 Room Air Physical Exam General Appearance: no apparent distress Respiratory/Chest: lungs clear, no respiratory distress Cardiovascular: regular rate, rhythm Extremities: + pertinent finding (bilateral BKA) Neurologic/Psychiatric: alert, oriented x 3 Laboratory Results Last 24 Hours Test 03/03/17 12:20 03/03/17 17:27 03/03/17 20:44 03/04/17 05:10 Bedside Glucose 83 mg/dl 123 mg/dl 193 mg/dl White Blood Count 5.97 K/uL Red Blood Count 3.49 M/uL Hemoglobin 9.9 g/dL Hematocrit 30.4 % Mean Corpuscular Volume 87.1 fL Mean Corpuscular Hemoglobin 28.4 pg Mean Corpuscular Hemoglobin Concent 32.6 g/dl Platelet Count 313 K/uL Mean Platelet Volume 8.3 fL Neutrophils (%) (Auto) 40.2 % Lymphocytes (%) (Auto) 50.9 % Monocytes (%) (Auto) 6.2 % Eosinophils (%) (Auto) 1.2 % Basophils (%) (Auto) 0.3 % Neutrophils # (Auto) 2.40 K/uL Lymphocytes # (Auto) 3.04 K/uL Monocytes # (Auto) 0.37 K/uL Eosinophils # (Auto) 0.07 K/uL Basophils # (Auto) 0.02 K/uL RDW Standard Deviation 41.9 fL RDW Coefficient of Variation 13.1 % Immature Granulocyte % (Auto) 1.2 % Immature Granulocyte # (Auto) 0.07 K/uL Red Blood Cell Morphology Unremarkable Creatinine 0.60 mg/dl Est Creatinine Clear Calc Drug Dose 119.9 ml/min Estimated GFR () 124.0 Estimated GFR (Non- 107.0 Total Creatine Kinase 86 U/L Test 03/04/17 08:12 03/04/17 12:10 Bedside Glucose 186 mg/dl 184 mg/dl Assessment and Plan 51 y/o female with past medical history of type 2 diabetes, status post bilateral below-knee amputation presented with complaints of left BKA wound dehiscence . Status post left BKA revision Wound dehiscence: - status post left BKA revision. - Wound culture - staph aureus - Infectious disease following - Now on cefazolin. - Pain control per primary service Uncontrolled diabetes: -Hemoglobin A1c at 13.6 - Pharmacy glycemic consult- blood sugars better today * Continue Lantus 36 units SQ BID * Continue correction factor of 15 mg/dl/unit * Change carb ratio to 1 unit per 6 grams CHO consumed (B/L) and 4 for (D/HS) * Continue goal range Low 140 mg/dL - High 180 mg/dL Nausea - likely sec to pain med. resolved. Hypertension/coronary artery disease: - continue Ranexa, Imdur Hypothyroidism: -Continue Synthroid Constipation: -Continue Colace, may try MiraLAX Full code plan to be discharged home today
--- NOTE | 2017-03-04 14:32 | ORTHOPEDIC PROGRESS NOTE ---
DATE: 03/04/2017 DATE: 03/04/2017. Dr. Ramos had seen the patient earlier this morning and was waiting for further input from infectious disease team about further antibiotics. The patient is pansensitive with her staph aureus and Dr. Richardson later changed her to IV cefazolin. I just spoke to Dr. Richardson and plans will be for 2 weeks of IV antibiotics. We will change her to IV Rocephin and plan on using her existing port for her IV antibiotics at this time. SRINATH
[2017-03-04] MEDS ORDERED: CEFT1INJ26 IV (14:49)
--- NOTE | 2017-03-04 14:54 | Discharge Instructions ---
Discharge Instructions Date of Service March 04, 2017. Admission Reason for Admission: Open Surgical Wound - L Lower Extremity Discharge Discharge Diagnosis / Problem: Wound Dehiscence Left BKA Discharge Goals Goal(s): Decrease discomfort, Improve function Activity Recommendations Activity Limitations: per Instructions/Follow-up section . Instructions / Follow-Up Instructions / Follow-Up Keep dressing clean and dry Change dressing daily. If wound remains dry, you may change it every other day. Ok to shower if you have no drainage. No tub baths. Do not soak the wound. Do not let the shower pressure beat on the wound. Use mild soaps to clean AROUND the wound but do not scrub the wound. Follow up with Dr Ramos in 10-14 days from the day of your surgery. Call [phone] to make an appointment. Current Hospital Diet Patient's current hospital diet: Diabetes Type 2 Diet Discharge Diet Recommended Diet: Diabetes Type 2 Diet Procedures Procedures Performed: Below Knee Amputation Revision Left; debridement of: skin, muscle, fascia, bone Pending Studies Studies pending at discharge: no Laboratory Results Hemoglobin A1c Test 02/27/17 06:03 Range/Units Estimated Average Glucose 341 mg/dl Hemoglobin A1c 13.5 H 4.5-5.6 % Medical Emergencies . Who to Call and When: Medical Emergencies: If at any time you feel your situation is an emergency, please call 911 immediately. . Non-Emergent Contact Non-Emergency issues call your: Surgeon Call Non-Emergent contact if: temperature is above 101.5, your pain is not controlled, your pain is worsening, wound has increased drainage, wound has increased redness . "Provider Documentation" section prepared by Dc Osborn. . VTE Core Measure Inpt VTE Proph given/why not?: Other Anticoagulation, T.E.D. Stockings, SCD's [place] Drug Monitoring Program Search Results: patient reviewed within database, see additional documentation Drug Monitoring Findings: Pt receiving Percocet through Pain Management contract and will continue to get her pain Rx there. No need for Pain Rx from us at this time.
[2017-03-04 15:10] VITALS: BP 145/72; PULSE 68; TEMP 37.2; O2SAT 98
[2017-03-04] MEDS: CEFTRIAXONE SOD INJ 2,000 MG in DEXTROSE 5% 50ML 50 ML IV SCH (16:14)
[2017-03-04 23:03] VITALS: BP 147/76; PULSE 77; TEMP 36.7; O2SAT 95
[2017-03-05] MEDS: MoRPHine SULFATE 2 MG/ML CARP IV PRN (03:03)
[2017-03-05 03:50] VITALS: BP 121/76; PULSE 66; TEMP 36.7; O2SAT 94
[2017-03-05] MEDS: LEVOTHYROXINE 112 MCG TAB PO SCH (05:38)
[2017-03-05] MEDS: PROMETHAZINE HCL 25 MG TAB PO PRN (05:41)
[2017-03-05 05:43] LABS: BASO % 0.3 %; BASO ABS # 0.02 K/uL (0-0.2); COMPLETE YES; EOS % 1.8 %; HEMATOCRIT 29.2 % (37-47); IG% 2.2 %; LYMPH % 44.9 %; LYMPH ABS # 2.81 K/uL (1.2-3.4); MEAN CELL VOLUME 86.4 fL (80-100); MEAN CORPUSCULAR HEMOGLOBIN 28.4 pg (25-34); MEAN CORPUSCULAR HGB CONC 32.9 g/dl (32-36); MEAN PLATELET VOLUME 8.3 fL (7.4-10.4); MONO % 6.4 %; NEUT % 44.4 %; PLATELET COUNT 330 K/uL (130-400); RED BLOOD COUNT 3.38 M/uL (4.2-5.4); WHITE BLOOD COUNT 6.26 K/uL (4.8-10.8)
[2017-03-05 06:20] LABS: CREATININE 0.66 mg/dl (0.60-1.20)
[2017-03-05 07:05] VITALS: BP 165/84; PULSE 68; TEMP 36.6; O2SAT 97
[2017-03-05] MEDS: SODIUM CHLORIDE 0.9% 1000ML 1,000 ML IV SCH (07:51)
[2017-03-05] MEDS: CEFTRIAXONE SOD INJ 2,000 MG in DEXTROSE 5% 50ML 50 ML IV SCH (08:33)
[2017-03-05] MEDS: PANTOprazole SOD 40 MG TAB PO SCH (08:34)
[2017-03-05] MEDS: CHOLECALCIFEROL 1000 INTER.UNIT TAB PO SCH (08:34)
[2017-03-05] MEDS: DOCUSATE SODIUM 100 MG CAP PO SCH (08:34)
[2017-03-05] MEDS: RANITIDINE HCL 150 MG TAB PO SCH (08:34)
[2017-03-05] MEDS: ASPIRIN 81 MG ECTAB PO SCH (08:34)
[2017-03-05] MEDS: RANOLAZINE 500 MG ER TAB PO SCH (08:35)
[2017-03-05] MEDS: ISOSORBIDE MONONITRATE 60 MG TABCR PO SCH (08:35)
[2017-03-05] MEDS: OXYCODONE HCL IR 5 MG TAB (IMMEDIATE RELEASE) PO PRN (08:50)
[2017-03-05] MEDS: INSULIN ASPART 100 UNITS/ML 3 ML PEN SC SCH (09:00)
[2017-03-05] MEDS ORDERED: INSULIN GLARGINE SOLOSTAR 100 UNITS/ML 3 ML PEN SC SCH (09:00)
[2017-03-05] MEDS: ALPRAZOLAM 0.5 MG TAB PO SCH (09:17)
--- NOTE | 2017-03-05 09:26 | Pharmacy Progress Note ---
Glycemic Control: Progress Nt Date of Service March 05, 2017. Scope Glycemic Pharmacist consulted by Dean Silva PA-C on 02/26/17 for glycemic control and to write orders per [facility] inpatient glycemic control protocol. Objective Accuchecks BSG (last 24hrs): Test 03/04/17 12:10 03/04/17 17:26 03/04/17 20:42 03/05/17 08:20 Bedside Glucose 184 mg/dl (70-90) 180 mg/dl (70-90) 267 mg/dl (70-90) 226 mg/dl (70-90) HbA1c: Test 02/27/17 06:03 Hemoglobin A1c 13.5 % (4.5-5.6) H Recent Pertinent Medications Outpatient Anti-diabetic Regimen: * Toujeo 32 units BID plus Humalog 10 units at lunch, 15 units at dinner, and 20 units at bedtime The patient is currently receiving: * Basal insulin: Lantus 36 units every 12 hours P&T approved therapeutic substitution for Toujeo * Correctional Insulin: Novolog Correction per scale ACHS Goal Range: Low 140 mg/dL - High 180 mg/dL Correction Factor: 15 mg/dL/unit * Prandial insulin: Per carb ratio of 1 unit per 6 grams CHO consumed at Breakfast & Lunch * Prandial insulin: Per carb ratio of 1 unit per 4 grams CHO consumed at Dinner & HS Risk Factors for Insulin Resistance: * Infection * Recent Surgery * Diet Assessment & Plan ASSESSMENT: * 51 y/o F with poorly controlled diabetes admitted 02/26/2017 with LLE open surgical wounds * Patient is currently receiving an average of ~100 units of insulin per day which is consistent with prescribed outpatient doses * 68 units of basal insulin * 32 units of prandial/correctional insulin * BSGs ranging 184 - 267 mg/dL over the past 24hrs * AM fasting BSG remains high --> will continue to titrate basal insulin to goal fasting BSG of < 140mg/dl * Post-prandial BSGs elevated throughout the day and trend upwards by evening * Will use tighter CR for lunch dinner and HS to help compensate for rising BSGs * Tight glycemic control is absolutely essential to help facilitate wound/ infection healing. We were utilizing the recommended goal range of 140-180mg/dl since patient was feeling symptoms of hypo at otherwise normal BSGS d/t her significantly elevated A1c. Pt has been consistently receiving insulin x7+ days - reasonable to decrease goal range (conservatively) at this point. PLAN FOR INPATIENT GLYCEMIC CONTROL: * Basal Insulin * INCREASE Lantus to 40 units SQ BID * Bolus Insulin * NovoLog per scale ACHS * Lower Goal Range to 120-160mg/dl. More stringent goal range necessary for wound/infection healing. * Continue CF = 15mg/dl/unit * Tighten CR for breakfast & lunch to 1 unit for every 5g CHO consumed (was 6) * Continue CR for dinner & HS of 1 unit for every 4g CHO consumed RECOMMENDATIONS FOR DISCHARGE: * A1c = 13.5% on 02/27/17 * This is well above recommended target for patient based on age & co- morbidities * Recommend: #1 Compliance with home regimen. * Tight glycemic control is absolutely essential to help facilitate wound/ infection healing. * Current outpatient insulin regimen/doses are consistent with inpatient dosing & BSGs near-adequate control in house. * Pt current takes basal insulin + prandial insulin as an outpatient * #2 Pt may benefit from a correctional sliding scale for additional insulin when her BSG is elevated before meals. This would be given in addition to scheduled/fixed dosing with meals. BSG 70-130 Administer 0 units BSG 131-180 Administer 4 units BSG 181-240 Administer 8 units BSG 241-300 Administer 10 units BSG 301-350 Administer 12 units BSG 351-400 Administer 16 units BSG >400 Administer 20 units and call MD * Support Patient Self-Management Healthy Lifestyle (diet, exercise, and smoking cessation) Disease self-management (SMBG) Prevention of complications (BP, Lipid goals, Immunizations) Consider outpatient Diabetes Self-Management Education & Support * Please note that the plan above was derived based on current level of insulin resistance and hospital stress. These recommendations are appropriate for inpatient admission only. Plan of care upon discharge will need to be reassessed to avoid potential outpatient hypo/hyperglycemia. Thank you.
--- NOTE | 2017-03-05 10:02 | Discharge Instructions ---
Discharge Instructions Date of Service March 05, 2017. Admission Reason for Admission: Open Surgical Wound - L Lower Extremity Discharge Discharge Diagnosis / Problem: Left knee open wound. High blood sugars Discharge Goals Goal(s): Decrease discomfort, Improve function Activity Recommendations Activity Limitations: resume your previous activity . Instructions / Follow-Up Instructions / Follow-Up Recommendations for managing high blood sugar: RECOMMENDATIONS FOR DISCHARGE: * A1c = 13.5% on 02/27/17 * This is well above recommended target for patient based on age & co- morbidities * Recommend: #1 Compliance with home regimen. * Tight glycemic control is absolutely essential to help facilitate wound/ infection healing. * Current outpatient insulin regimen/doses are consistent with inpatient dosing & BSGs near-adequate control in house. * Pt current takes basal insulin + prandial insulin as an outpatient * #2 Pt may benefit from a correctional sliding scale for additional insulin when her BSG is elevated before meals. This would be given in addition to scheduled/fixed dosing with meals. BSG 70-130 Administer 0 units BSG 131-180 Administer 4 units BSG 181-240 Administer 8 units BSG 241-300 Administer 10 units BSG 301-350 Administer 12 units BSG 351-400 Administer 16 units BSG >400 Administer 20 units and call MD * Support Patient Self-Management Healthy Lifestyle (diet, exercise, and smoking cessation) Disease self-management (SMBG) Prevention of complications (BP, Lipid goals, Immunizations) Consider outpatient Diabetes Self-Management Education & Support Please follow-up with to manage her blood sugars in about a week. His office number is listed [phone] Current Hospital Diet Patient's current hospital diet: Diabetes Type 2 Diet Discharge Diet Recommended Diet: Diabetes Type 2 Diet Procedures Procedures Performed: Below Knee Amputation Revision Left; debridement of: skin, muscle, fascia, bone Pending Studies Studies pending at discharge: no Laboratory Results Hemoglobin A1c Test 02/27/17 06:03 Range/Units Estimated Average Glucose 341 mg/dl Hemoglobin A1c 13.5 H 4.5-5.6 % Medical Emergencies . Who to Call and When: Medical Emergencies: If at any time you feel your situation is an emergency, please call 911 immediately. . Non-Emergent Contact Non-Emergency issues call your: Primary Care Provider Contact Number: [phone] . . "Provider Documentation" section prepared by Noreen Nova. . VTE Core Measure Inpt VTE Proph given/why not?: Other Anticoagulation, T.E.D. Stockings, SCD's
[2017-03-05 10:04] VITALS: BP 165/84; PULSE 68; TEMP 36.6; O2SAT 97
--- NOTE | 2017-03-17 08:16 | Discharge Summary ---
Orthopedic Discharge Summary Admission Date/Reason Feb 26, 2017 at 16:41 Open Surgical Wound - L Lower Extremity. Discharge Date/Disposition March 05, 2017 Home Diagnosis Principal Diagnosis: Infected left BKA stump, wound dehiscence Procedure(s) Performed 1. Revision left below knee amputation. 2. Debridement of skin. 3. Debridement of fascia. 4. Debridement of bone left lower extremity. Consultations Medicine Infectious Disease Medication Reconciliation New Medications: Ceftriaxone Sodium (Rocephin) 1 Gm Inj 2 GM IV DAILY for 14 Days Continued Medications: Alprazolam (Xanax) 1 Mg Tab 1 MG PO TID, TAB Aspirin (Aspirin Ec) 81 Mg Tab 81 MG PO QAM Cholecalciferol (Vitamin D) 2,000 Unit Cap 1 CAP PO DAILY, #30 TAB Famotidine (Pepcid) 20 Mg Tab 20 MG PO HS PRN for Heartburn, TAB PT INTERCHANGES WITH ZANTAC AND PRILOSEC Insulin Glargine (Toujeo Solostar) 300 Unit/Ml Inj 32 UNITS SC BID PATIENT REPORTS TAKES 10 AM & 10 PM Isosorbide Mononitrate Ext Rel (Imdur Ext Rel) 60 Mg Ertab 60 MG PO BID, TAB Levothyroxine Sodium (Synthroid) 112 Mcg Tab 112 MCG PO QAM, TAB Ondansetron Hcl (Zofran) 4 Mg Tab 4-8 MG PO Q6H PRN for Nausea Oxycodone Hcl (Oxycodone Hcl) 10 Mg Tab 10 MG PO Q6 PRN for Pain, #120 Promethazine HCl (Promethazine HCl) 25 Mg Tab 25 MG PO Q6 PRN for Nausea or Vomiting, #120 Ranolazine (Ranexa) 1,000 Mg Tab 1000 MG PO BID Sennosides-Docusate Sodium (Stool Softener) 1 Tab Tab 2 TAB PO HS PRN for Constipation Discontinued Medications: Cephalexin Monohydrate (Keflex) 500 Mg Cap 500 MG PO QID, #28 CAP Admission Physical Exam As per Admitting History & Physical. Hospital Course The patient was admitted on 02.26.17 for IV antibiotic tx and wound care of a wound dehiscence of the left BKA site. On 03.01.17 the patient had the above noted procedure for I & D of the wound dehiscence. Over the next few days, the patient's wound was checked but the Prevena dressing was left in place. Infectious disease gave input for proper antibiotic choice and medicine managed the patient's medical diagnoses. She was d/c'd home on IV Rocephin for 14 days. Discharge Instructions Please refer to the electronic Patient Visit Report (Discharge Instructions) for additional information.
== END 2017-03-05 10:50 | disposition home health service (06) | DRG 493 ==
LOC: C.3E 16:34 → OBSVTOIN 16:41
PROVIDERS: ADMIT Orthopaedic Surgery Sports Medicine; ATTEND Orthopaedic Surgery Sports Medicine
PROC: 0QBH0ZZ Excision of Left Tibia, Open Approach (ICD-10-PCS; principal; 2017-03-01 06:45)
DX: T87.81 Dehiscence of amputation stump (principal); L03.116 Cellulitis of left lower limb; N17.9 Acute kidney failure, unspecified; B95.61 Methicillin susceptible Staphylococcus aureus infection as the cause of diseases classified elsewhere; E87.6 Hypokalemia; D64.9 Anemia, unspecified; E03.9 Hypothyroidism, unspecified; I25.10 Atherosclerotic heart disease of native coronary artery without angina pectoris; I10 Essential (primary) hypertension; E78.00 Pure hypercholesterolemia, unspecified; E11.51 Type 2 diabetes mellitus with diabetic peripheral angiopathy without gangrene; E11.40 Type 2 diabetes mellitus with diabetic neuropathy, unspecified; F41.9 Anxiety disorder, unspecified; E11.65 Type 2 diabetes mellitus with hyperglycemia; K59.00 Constipation, unspecified; Z79.4 Long term (current) use of insulin; Z79.82 Long term (current) use of aspirin; Z79.899 Other long term (current) drug therapy; Z88.8 Allergy status to other drugs, medicaments and biological substances; Z83.3 Family history of diabetes mellitus; Z95.5 Presence of coronary angioplasty implant and graft; Z86.711 Personal history of pulmonary embolism; Z89.512 Acquired absence of left leg below knee; Z89.511 Acquired absence of right leg below knee

== ENCOUNTER 2017-07-30 18:30 | Inpatient (IN) | payer OTHER ==
[~2017-07-30] VITALS: Ht 162.6 cm; Wt 86.4 kg
[~2017-07-30 18:30] MED LIST changes: +CEFT1INJ26 IV; -CEPH500C PO
[2017-07-30] MEDS ORDERED: SODIUM CHLORIDE 0.9% 1000ML 1,000 ML IV STA (19:37)
[2017-07-30] MEDS ORDERED: MoRPHine SULFATE 4 MG/ML 1 ML CARP\\VIAL IV STA ×2 (19:37→21:17)
--- NOTE | 2017-07-30 19:43 | EMERGENCY ROOM VISIT NOTE ---
History Report prepared by Santana: Armida Moulton Under the Supervision of: Dr. Hay Eldridge M.D. 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 Positive chills, serosanguineous drainage. Negative cough, urinary symptoms. She underwent a left BKA approximately [address] Ramos at [facility] [place] [facility]. She states the surgical scar occasionally "breaks open" and then heals over. She developed pain in her left stump 8 days ago. She had an MRI of the leg and followed up with Dr. Ramos yesterday, but since then her pain and fever have persisted. Her last temperature was 102 degrees taken orally. Motrin has provided no relief. She rates the pain in her leg as an 8/10 in severity. She takes daily Aspirin and Plavix. Her Chief Specialist Leed is Dr. Hindsone is Bryce. 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 A total of ten systems were reviewed and were otherwise negative. Past Medical & Surgical Medical Problems: (1) BKA stump complication (2) Diabetes (3) Diabetic ulcer (4) Exostosis (5) HTN (hypertension) (6) Painful amputation stump (7) Pulmonary embolism (8) Sepsis (9) Wound dehiscence, surgical Surgical Problems: (1) H/O: (2) Hx of BKA Family History Diabetes mellitus Social History Smoking Status: Never Smoker Alcohol Use: none Drug Use: none Marital Status: Housing Status: lives with family Occupation Status: disabled Current/Historical Medications Scheduled Alprazolam (Xanax), 1 MG PO TID Aspirin (Aspirin Ec), 81 MG PO QAM Ceftriaxone Sodium (Rocephin), 2 GM IV DAILY Cholecalciferol (Vitamin D), 1 CAP PO DAILY Insulin Glargine (Toujeo Solostar), 32 UNITS SC BID Isosorbide Mononitrate Ext Rel (Imdur Ext Rel), 60 MG PO BID Levothyroxine Sodium (Synthroid), 112 MCG PO QAM Ranolazine (Ranexa), 1,000 MG PO BID Scheduled PRN Famotidine (Pepcid), 20 MG PO HS PRN for Heartburn Ondansetron Hcl (Zofran), 4-8 MG PO Q6H PRN for Nausea Oxycodone Hcl (Oxycodone Hcl), 10 MG PO Q6 PRN for Pain Promethazine HCl (Promethazine HCl), 25 MG PO Q6 PRN for Nausea or Vomiting Sennosides-Docusate Sodium (Stool Softener), 2 TAB PO HS PRN for Constipation Allergies Coded Allergies: Butorphanol (Verified Allergy, Severe, SHORTNESS OF BREATH, 03/01/17) Spironolactone (Verified Allergy, Mild, RASH, 03/01/17) Atorvastatin (Verified Allergy, Unknown, RASH, 03/01/17) Fenofibrate (Verified Allergy, Unknown, RASH, 03/01/17) Vancomycin (Verified Adverse Reaction, Mild, RASH-DEVYN SYNDROME, 03/01/17) red man syndrome Physical Exam Vital Signs Date Time Temp Pulse Resp B/P (MAP) Pulse Ox O2 Delivery O2 Flow Rate FiO2 07/30/17 21:13 92 20 152/88 98 Room Air 07/30/17 18:32 37.3 89 16 149/84 97 Room Air Physical Exam GENERAL: Awake, alert, well-appearing, NAD but rigorous HENT: Normocephalic, atraumatic. Edentulous. EYES: Normal conjunctiva. Sclera non-icteric. NECK: Supple. No nuchal rigidity. FROM. RESPIRATORY: CTAB, no rhonchi, wheezing, crackles CARDIAC: Tachycardic heart rate, regular rhythm, no MRG ABDOMEN: Soft, NTND, BS+ MSK: Bilateral BKA's, left is mildly swollen with tenderness, warmth and fluctuance. Small 5 cm by 1 cm open wound, without purulent drainage. No chest wall TTP, no LE edema NEURO: GCS 15, CN 2-12 intact, moves all 4s on command SKIN: No rash or jaundice noted. Medical Decision & Procedures ER Provider Diagnostic Interpretation: The following MRI was performed at [facility] MRI KNEE WO CONTRAST, LEFT IMPRESSION 1. Status post left below the knee amputation 2. Cellulitis and a small area of osteomyelitis at the distal tip of the remaining tibia. Radiology results as stated below per my review and radiologist interpretation: CHEST ONE VIEW PORTABLE HISTORY: 51 years-old Female febrile acute fever. COMPARISON: Chest radiograph 09/07/2015 TECHNIQUE: Portable upright AP view of the chest FINDINGS: Cardiomediastinal and hilar silhouettes are within normal limits. Right internal jugular Libyqu-s-Ihuj catheter is again seen with distal tip in the region of the mid SVC. There is no pneumothorax, pleural effusion, focal airspace consolidation or overt pulmonary edema. The bones are grossly intact. IMPRESSION: No acute cardiopulmonary process. The above report was generated using voice recognition software. It may contain grammatical, syntax or spelling errors. Electronically signed by: Victor Hugo Rodriguez M.D. 07/30/2017 8:56 PM Laboratory Results 07/30/17 20:10 Red Blood Count 4.39, Mean Corpuscular Volume 84.3, Mean Corpuscular Hemoglobin 28.5, Mean Corpuscular Hemoglobin Concent 33.8, Mean Platelet Volume 8.9, Neutrophils (%) (Auto) 54.2, Lymphocytes (%) (Auto) 30.9, Monocytes (%) (Auto) 12.0, Eosinophils (%) (Auto) 2.5, Basophils (%) (Auto) 0.2, Neutrophils # (Auto ) 3.25, Lymphocytes # (Auto) 1.85, Monocytes # (Auto) 0.72, Eosinophils # (Auto ) 0.15, Basophils # (Auto) 0.01 07/30/17 20:10 Test 07/30/17 20:10 White Blood Count 5.99 K/uL (4.8-10.8) Red Blood Count 4.39 M/uL (4.2-5.4) Hemoglobin 12.5 g/dL (12.0-16.0) Hematocrit 37.0 % (37-47) Mean Corpuscular Volume 84.3 fL (80-100) Mean Corpuscular Hemoglobin 28.5 pg (25-34) Mean Corpuscular Hemoglobin Concent 33.8 g/dl (32-36) Platelet Count 226 K/uL (130-400) Mean Platelet Volume 8.9 fL (7.4-10.4) Neutrophils (%) (Auto) 54.2 % Lymphocytes (%) (Auto) 30.9 % Monocytes (%) (Auto) 12.0 % Eosinophils (%) (Auto) 2.5 % Basophils (%) (Auto) 0.2 % Neutrophils # (Auto) 3.25 K/uL (1.4-6.5) Lymphocytes # (Auto) 1.85 K/uL (1.2-3.4) Monocytes # (Auto) 0.72 K/uL (0.11-0.59) Eosinophils # (Auto) 0.15 K/uL (0-0.5) Basophils # (Auto) 0.01 K/uL (0-0.2) RDW Standard Deviation 39.6 fL (36.4-46.3) RDW Coefficient of Variation 13.1 % (11.5-14.5) Immature Granulocyte % (Auto) 0.2 % Immature Granulocyte # (Auto) 0.01 K/uL (0.00-0.02) Erythrocyte Sedimentation Rate 46 mm/hr (0-21) Anion Gap 7.0 mmol/L (3-11) Est Creatinine Clear Calc Drug Dose 90.0 ml/min Estimated GFR () 96.0 Estimated GFR (Non- 82.8 BUN/Creatinine Ratio 28.6 (10-20) Calcium Level 9.2 mg/dl (8.5-10.1) C-Reactive Protein 9.88 mg/dl (0-0.29) Laboratory results reviewed by me Medications Administered Medications (Trade) Dose Ordered Sig/Ochoa Route Start Time Stop Time Status Last Admin Dose Admin Sodium Chloride 1,000 ml @ 999 mls/hr Q1H1M STAT IV 07/30/17 19:37 07/30/17 20:37 DC 07/30/17 20:18 999 MLS/HR Morphine Sulfate (MoRPHine SULFATE INJ) 4 mg NOW STAT IV 07/30/17 19:37 07/30/17 19:41 DC 07/30/17 20:18 4 MG Linezolid 600 mg/ Prmx 300 ml @ 300 mls/hr Q12 STAT IV 07/30/17 20:08 07/30/17 21:07 DC 07/30/17 21:11 300 MLS/HR Ceftriaxone Sodium (Rocephin Inj) 2 gm NOW STAT IV 07/30/17 20:08 07/30/17 20:11 DC 07/30/17 21:11 2 GM Morphine Sulfate (MoRPHine SULFATE INJ) 4 mg NOW STAT IV 07/30/17 21:17 07/30/17 21:18 DC 07/30/17 21:27 4 MG ED Course 1928: The patient was evaluated in room B2. A complete history and physical exam was performed. 1936: Morphine Sulfate 4 mg IV, NSS 1000 ml @ 999 mls/hr IV. 2007: Rocephin 2 gm IV, Linezolid 600 mg/Prmx 300 ml @ 300 mls/hr IV. 2116: Morphine Sulfate 4 mg IV. 2133: I discussed the patients case with Dr. Meza [facility] Hospitalist. The patient will be further evaluation. 2134: I reevaluated the patient. She is resting comfortably. I discussed my recommendation she remain in the hospital for further evaluation and management and she verbalized complete understanding and agreement. 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 Positive chills, serosanguineous drainage. Negative cough, urinary symptoms. Triage Nursing notes reviewed. The patient's presentation and history were concerning for cellulitis, abscess, osteomyelitis, UTI, pneumonia. Medication Reconcilliation Current Medication List: was personally reviewed by me Blood Pressure Screening Patient's blood pressure: Elevated blood pressure The patients elevated blood pressure will be further addressed by the inpatient hospital medicine team Consults Time Called: [id number] Consulting Physician: Dr. Meza [facility] Hospitalist Returned Call: [phone] I discussed the patients case with Dr. Meza [facility] Hospitalist. The patient will be further evaluation. Impression Primary Impression: Osteomyelitis Scribe Attestation The scribe's documentation has been prepared under my direction and personally reviewed by me in its entirety. I confirm that the note above accurately reflects all work, treatment, procedures, and medical decision making performed by me. Departure Information Dispostion Being Evaluated By Hospitalist Referrals Charles Montiel M.D. (PCP) Patient Instructions My [facility] Problem Qualifiers Primary Impression: Osteomyelitis Osteomyelitis type: unspecified type Osteomyelitis location: tibia Laterality: left Qualified Codes: M86.9 - Osteomyelitis, unspecified
[2017-07-30] MEDS ORDERED: LINEZOLID / D5W 600 MG in PREMIXED IN D5W 300 ML IV STA (20:08)
[2017-07-30] MEDS ORDERED: CEFTRIAXONE SOD INJ 1 GM ADDVIAL IV STA (20:08)
[2017-07-30 20:31] LABS: BASO % 0.2 %; BASO ABS # 0.01 K/uL (0-0.2); COMPLETE YES; EOS % 2.5 %; IG% 0.2 %; LYMPH % 30.9 %; LYMPH ABS # 1.85 K/uL (1.2-3.4); MEAN CELL VOLUME 84.3 fL (80-100); MEAN CORPUSCULAR HEMOGLOBIN 28.5 pg (25-34); MEAN CORPUSCULAR HGB CONC 33.8 g/dl (32-36); MEAN PLATELET VOLUME 8.9 fL (7.4-10.4); NEUT % 54.2 %; PLATELET COUNT 226 K/uL (130-400); RED BLOOD COUNT 4.39 M/uL (4.2-5.4); WHITE BLOOD COUNT 5.99 K/uL (4.8-10.8)
[2017-07-30 20:51] LABS: BUN/CREATININE RATIO 28.6 (10-20); C-REACTIVE PROTEIN 9.88 mg/dl (0-0.29); CALCIUM 9.2 mg/dl (8.5-10.1); CREATININE 0.83 mg/dl (0.60-1.20); POTASSIUM 3.8 mmol/L (3.5-5.1)
--- NOTE | 2017-07-30 20:57 | DIAGNOSTIC IMAGING REPORT ---
CHEST ONE VIEW PORTABLE HISTORY: 51 years-old Female febrile acute fever. COMPARISON: Chest radiograph 09/07/2015 TECHNIQUE: Portable upright AP view of the chest FINDINGS: Cardiomediastinal and hilar silhouettes are within normal limits. Right internal jugular Okfluv-s-Hegf catheter is again seen with distal tip in the region of the mid SVC. There is no pneumothorax, pleural effusion, focal airspace consolidation or overt pulmonary edema. The bones are grossly intact. IMPRESSION: No acute cardiopulmonary process. The above report was generated using voice recognition software. It may contain grammatical, syntax or spelling errors. Electronically signed by: Victor Hugo Rodriguez M.D. 07/30/2017 8:56 PM Dictated Date/Time: 07/30/2017 8:55 PM
--- NOTE | 2017-07-30 21:01 | DIAGNOSTIC IMAGING REPORT ---
L TIBIA/FIBULA 2 VIEWS ROUTINE HISTORY: 51 years-old Female concern for infectious process; prior BKA, TTP, warm, red acute fever with redness and swelling of the left lower extremity COMPARISON: None available TECHNIQUE: 2 views of the left tibia and fibula. FINDINGS: The bones are moderately demineralized. Prior [id number] amputation at the level of the proximal diaphyseal portion tibia and fibula. There is moderate soft tissue swelling about the amputation stump. Vascular calcifications are noted. There is ill-defined cortical lucency and irregularity noted at the distal tibia at the amputation site, best seen on the frontal view. There is suggestion of a lucent wound tract within this distribution seen on the lateral projection. No acute fracture or dislocation. IMPRESSION: 1. Prior [id number] amputation at the level of the proximal diaphyseal tibia and fibula. 2. Moderate soft tissue swelling with apparent wound track at the amputation stump is noted in addition to cortical irregularity and lucency of the adjacent distal tibia, suspicious for osteomyelitis. 3. Peripheral vascular disease. The above report was generated using voice recognition software. It may contain grammatical, syntax or spelling errors. Electronically signed by: Victor Hugo Rodriguez M.D. 07/30/2017 8:59 PM Dictated Date/Time: 07/30/2017 8:56 PM
[2017-07-30] MEDS ORDERED: MAGNESIUM HYDROXIDE SUSP 30 ML UDC PO PRN (22:00)
[2017-07-30] MEDS ORDERED: ALUMINUM/MAGNESIUM/SIMETH (MAALOX MAX) 30 ML UDC PO PRN (22:00)
[2017-07-30] MEDS ORDERED: PROMETHAZINE HCL 25 MG TAB PO PRN (22:00)
[2017-07-30] MEDS ORDERED: FAMOTIDINE 20 MG TAB PO PRN (22:00)
[2017-07-30] MEDS ORDERED: SULF800T23 PO (22:05)
[2017-07-30] MEDS ORDERED: TRESIBA SQ (22:05)
[2017-07-30] MEDS ORDERED: LSN40 PO (22:05)
[2017-07-30] MEDS ORDERED: POLYETHYLENE (MIRALAX) 17 GM PACK PO PRN (22:30)
[2017-07-30] MEDS ORDERED: GLUCOSE 40% GEL 15 GM TUBE PO PRN (22:30)
[2017-07-30] MEDS ORDERED: GLUCOSE 10 TABS/TUBE PO PRN (22:30)
[2017-07-30] MEDS ORDERED: DEXTROSE 50% 50 ML SYR IV PRN (22:30)
[2017-07-30] MEDS ORDERED: GLUCAGON FOR INJ 1 MG VIAL SQ PRN (22:30)
--- NOTE | 2017-07-30 22:46 | History and Physical ---
History & Physical Date & Time of Service: Jul 30, 2017 at 22:03 Chief Complaint: Lt Stume Red, Edematoos, Fever Primary Care Physician: Charles Montiel M.D. History of Present Illness Source: patient 51 y/o F Hx PAD, DM, CAD, PE, hypothyroid, B/L BKA. Pt has a nonhealing wound of her distal LLE. She has had redness, increasing pain, fevers and rigors over the past 4 days. She states that her temp was 102 one night prior. MRI was obtained revealing likely osteomyelitis. She was directed to the ER therefore. She had been taking Bactrim as an outpt. The pt had a L BKA 09/16 and was admitted with wound dehiscence requiring additional surgery 02/15. She maintains a vascular access port in her L chest. Past Medical/Surgical History 1) Poorly-controlled insulin-dependent diabetes 2) HTN 3) Severe peripheral vascular disease 4) HPL 5) CAD - [place] - 3 stents 6) Hypothyroidism 7) PE Surgical 1) B/L BKA - R 10/13, L 09/16 2) Surgical debridement and closure of dehisced surgical wound or L BKA 02/15 - MSSA + wound culture noted 3) Hysterectomy 4) Cholecystectomy Family History Diabetes mellitus Social History Smoking Status: Never Smoker Drug Use: none Marital Status: Housing status: lives with significant other Occupational Status: disabled Immunizations History of Influenza Vaccine: Unknown History of Tetanus Vaccine?: Unknown History of Pneumococcal: Unknown History of Hepatitis B Vaccine: Unknown Multi-Drug Resistant Organisms History of MDRO: Yes Type of MDRO: MRSA Allergies Coded Allergies: Butorphanol (Verified Allergy, Severe, SHORTNESS OF BREATH, 03/01/17) Spironolactone (Verified Allergy, Mild, RASH, 03/01/17) Atorvastatin (Verified Allergy, Unknown, RASH, 03/01/17) Fenofibrate (Verified Allergy, Unknown, RASH, 03/01/17) Vancomycin (Verified Adverse Reaction, Mild, RASH-DEVYN SYNDROME, 03/01/17) red man syndrome Home Medications Scheduled Alprazolam (Xanax), 1 MG PO TID Aspirin (Aspirin Ec), 81 MG PO QAM Ceftriaxone Sodium (Rocephin), 2 GM IV DAILY Cholecalciferol (Vitamin D), 1 CAP PO DAILY Insulin Glargine (Toujeo Solostar), 32 UNITS SC BID Isosorbide Mononitrate Ext Rel (Imdur Ext Rel), 60 MG PO BID Levothyroxine Sodium (Synthroid), 112 MCG PO QAM Ranolazine (Ranexa), 1,000 MG PO BID Scheduled PRN Famotidine (Pepcid), 20 MG PO HS PRN for Heartburn Ondansetron Hcl (Zofran), 4-8 MG PO Q6H PRN for Nausea Oxycodone Hcl (Oxycodone Hcl), 10 MG PO Q6 PRN for Pain Promethazine HCl (Promethazine HCl), 25 MG PO Q6 PRN for Nausea or Vomiting Sennosides-Docusate Sodium (Stool Softener), 2 TAB PO HS PRN for Constipation Review of Systems Constitutional: + fever, + chills, + sweats Eyes: No worsening of vision ENT: No hearing loss, No unusual epistaxis, No nasal symptoms Respiratory: No cough, No sputum, No wheezing Cardiovascular: No chest pain, No orthopnea, No PND Abdomen: No pain, No nausea, No vomiting Musculoskeletal: + joint pain (LLE pain) Genitourinary - Female: No dysuria, No urinary frequency, No urinary urgency Neurologic: No memory loss, No paralysis, No weakness Psychiatric: No depression symptoms Endocrine: No fatigue Hematologic / Lymphatic: No abnormal bleeding/bruising Integumentary: + rash (erythema and shallow wound LLE) Physical Exam Vital Signs Date Time Temp Pulse Resp B/P (MAP) Pulse Ox O2 Delivery O2 Flow Rate FiO2 07/30/17 21:13 92 20 152/88 98 Room Air 07/30/17 18:32 37.3 89 16 149/84 97 Room Air General Appearance: WD/WN, no apparent distress Head: normocephalic Eyes: normal inspection ENT: normal ENT inspection, pharynx normal Neck: supple, no JVD Respiratory/Chest: chest non-tender, lungs clear Cardiovascular: regular rate, rhythm, no edema, no gallop, + pertinent finding (Port in L chest - no induration) Abdomen/GI: normal bowel sounds, non tender, soft Back: normal inspection, no CVA tenderness, no muscle spasm Extremities/Musculoskelatal: + pertinent finding (Erythema LLE - B/L BKA) 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, no motor/sensory deficits, alert, normal mood/affect, normal reflexes, oriented x 3 Skin: + pertinent finding (Inflammation, erythema, warmth, pain LLE - 6cm shallow wound ) Diagnostics Laboratory Results Results Past 24 Hours Test 07/30/17 20:10 Range/Units White Blood Count 5.99 4.8-10.8 K/uL Red Blood Count 4.39 4.2-5.4 M/uL Hemoglobin 12.5 12.0-16.0 g/dL Hematocrit 37.0 37-47 % Mean Corpuscular Volume 84.3 80-100 fL Mean Corpuscular Hemoglobin 28.5 25-34 pg Mean Corpuscular Hemoglobin Concent 33.8 32-36 g/dl Platelet Count 226 130-400 K/uL Mean Platelet Volume 8.9 7.4-10.4 fL Neutrophils (%) (Auto) 54.2 % Lymphocytes (%) (Auto) 30.9 % Monocytes (%) (Auto) 12.0 % Eosinophils (%) (Auto) 2.5 % Basophils (%) (Auto) 0.2 % Neutrophils # (Auto) 3.25 1.4-6.5 K/uL Lymphocytes # (Auto) 1.85 1.2-3.4 K/uL Monocytes # (Auto) 0.72 0.11-0.59 K/uL Eosinophils # (Auto) 0.15 0-0.5 K/uL Basophils # (Auto) 0.01 0-0.2 K/uL RDW Standard Deviation 39.6 36.4-46.3 fL RDW Coefficient of Variation 13.1 11.5-14.5 % Immature Granulocyte % (Auto) 0.2 % Immature Granulocyte # (Auto) 0.01 0.00-0.02 K/uL Erythrocyte Sedimentation Rate 46 0-21 mm/hr Sodium Level 132 136-145 mmol/L Potassium Level 3.8 3.5-5.1 mmol/L Chloride Level 100 98-107 mmol/L Carbon Dioxide Level 25 21-32 mmol/L Anion Gap 7.0 3-11 mmol/L Blood Urea Nitrogen 24 7-18 mg/dl Creatinine 0.83 0.60-1.20 mg/dl Est Creatinine Clear Calc Drug Dose 90.0 ml/min Estimated GFR () 96.0 Estimated GFR (Non- 82.8 BUN/Creatinine Ratio 28.6 10-20 Random Glucose 276 70-99 mg/dl Calcium Level 9.2 8.5-10.1 mg/dl C-Reactive Protein 9.88 0-0.29 mg/dl Microbiology Results 07/30/17 Blood Culture, Received Pending 07/30/17 Blood Culture, Received Pending Diagnostic Radiology MRI LLE: Cellulitis and small area of osteomyelitis - distal remaining tib Impression Assessment and Plan 51 y/o F Hx PAD, DM, CAD, PE, hypothyroid, B/L BKA. Pt has a nonhealing wound of her distal LLE. She has had redness, increasing pain, fevers and rigors over the past 4 days. She states that her temp was 102 one night prior. MRI was obtained revealing likely osteomyelitis. She was directed to the ER therefore. She had been taking Bactrim as an outpt. The pt had a L BKA 09/16 and was admitted with wound dehiscence requiring additional surgery 02/15. She maintains a vascular access port in her L chest. 1) Osteomyelitis and cellulitis of LLE - SIRS - due to a vancomycin allergy and had recently received Bactrim and Ceftriaxone. She is placed on Linezolid and Cefepime. We will consult ID in addition to orthopedics as she may need wound exploration. Blood and wound cultures are pending. She will not likely require additional vascular access, however, if her blood cultures prove +, an echo may be prudent as additional workup. 2) DM - placed on long-acting Insulin and a SS. 3) CAD - no current evidence of ACS - cont ASA, Imdur, Ranexa - pt is statin- intolerant 4) Hypothyroid - cont Synthroid. 5) History of PE - placed on Heparin prophylaxis Full code Heparin prophylaxis - Total time for this admit including review of labs, meds, imaging - discussion with pt and ER attending - 39 min VTE Prophylaxis VTE Risk Assessment Done? Y/N: Yes Risk Level: High
[2017-07-30 22:56] LABS: PROTHROMBIN TIME (PATIENT) 10.8 SECONDS (9.0-12.0)
[2017-07-30] MEDS ORDERED: INSULIN GLARGINE SOLOSTAR 100 UNITS/ML 3 ML PEN SC SCH (23:00)
[2017-07-30] MEDS: RANOLAZINE 500 MG ER TAB PO SCH (23:11)
[2017-07-30] MEDS: ISOSORBIDE MONONITRATE 60 MG TABCR PO SCH (23:11)
[2017-07-30] MEDS: OXYCODONE HCL IR 5 MG TAB (IMMEDIATE RELEASE) PO PRN (23:21)
[2017-07-30 23:26] VITALS: BP 198/99; PULSE 95; TEMP 39.5; O2SAT 97
[2017-07-30] MEDS: INSULIN ASPART 100 UNITS/ML 3 ML PEN SC SCH (23:46)
[2017-07-31] VITALS: BP 198/99; PULSE 95; TEMP 39.5; BMI 26.1
[2017-07-31] MEDS: HYDROmorphone INJ 0.5 MG/0.5 ML SYR IV PRN ×3 (03:44→20:44)
[2017-07-31] MEDS: CEFEPIME IV 1,000 MG in DEXTROSE 5% 100ML 100 ML IV SCH ×2 (05:56→14:13)
[2017-07-31] MEDS: LEVOTHYROXINE 112 MCG TAB PO SCH (05:57)
[2017-07-31] MEDS: HEPARIN SOD 5000 UNIT/0.5 ML CARP SQ SCH ×3 (06:01→21:04)
[2017-07-31] MEDS: OXYCODONE HCL IR 5 MG TAB (IMMEDIATE RELEASE) PO PRN ×2 (06:06→12:55)
[2017-07-31 06:45] LABS: URINE APPEARANCE CLEAR (CLEAR); URINE BILIRUBIN NEG (NEG); URINE COLOR YELLOW; URINE EPITHELIAL CELL AUTO 20-30 /lpf (0-5); URINE NITRITE POS (NEG); URINE PH 5.5 (4.5-7.5); URINE SPECIFIC GRAVITY 1.023 (1.000-1.030); UROBILINOGEN NEG (NEG); ZZUR CULT IF INDIC CLEAN CATCH YES
[2017-07-31 06:50] LABS: MANUAL MICROSCOPIC REQUIRED? NO; REVIEW REQ? NO
[2017-07-31] MEDS ORDERED: INSULIN ASPART 100 UNITS/ML 3 ML PEN SC SCH (07:00)
[2017-07-31] MEDS: ACETAMINOPHEN 325 MG TAB PO PRN (07:36)
[2017-07-31 07:48] VITALS: BP 114/72; PULSE 91; TEMP 39.3; O2SAT 96
[2017-07-31] MEDS: ISOSORBIDE MONONITRATE 60 MG TABCR PO SCH ×2 (08:58→20:40)
[2017-07-31] MEDS: CHOLECALCIFEROL 1000 INTER.UNIT TAB PO SCH (08:59)
[2017-07-31] MEDS: ALPRAZOLAM 0.5 MG TAB PO SCH ×3 (08:59→20:43)
[2017-07-31] MEDS: LACTOBACILLUS ACIDOPHILUS (FLORANEX) TAB PO SCH ×4 (08:59→20:39)
[2017-07-31] MEDS: RANOLAZINE 500 MG ER TAB PO SCH ×2 (08:59→20:40)
[2017-07-31] MEDS: ASPIRIN 81 MG ECTAB PO SCH (08:59)
[2017-07-31] MEDS: ONDANSETRON INJ 2 MG/ML 2 ML VIAL IV PRN ×2 (09:01→15:08)
[2017-07-31] MEDS: INSULIN GLARGINE SOLOSTAR 100 UNITS/ML 3 ML PEN SC SCH ×2 (09:02→20:46)
[2017-07-31] MEDS: INSULIN ASPART 100 UNITS/ML 3 ML PEN SC SCH ×4 (09:03→20:48)
[2017-07-31 11:15] VITALS: TEMP 38
[2017-07-31 15:11] VITALS: BP 102/65; PULSE 83; TEMP 37; O2SAT 96
[2017-07-31] MEDS ORDERED: METOCLOPRAMIDE HCL INJ 5 MG/ML 2 ML VIAL IV PRN (15:15)
[2017-07-31] MEDS ORDERED: PIPERACILL/TAZOBAC IV 3.375 GM in DEXTROSE 5% 100ML IV ONE (15:30)
[2017-07-31] MEDS ORDERED: PIPERACILL/TAZOBAC CONSULT ACTIVE PRN (15:30)
[2017-07-31 15:37] LABS: HEMATOCRIT 30.1 % (37-47); MEAN CELL VOLUME 85.8 fL (80-100); MEAN CORPUSCULAR HEMOGLOBIN 29.3 pg (25-34); MEAN CORPUSCULAR HGB CONC 34.2 g/dl (32-36); MEAN PLATELET VOLUME 8.7 fL (7.4-10.4); PLATELET COUNT 198 K/uL (130-400); RED BLOOD COUNT 3.51 M/uL (4.2-5.4); WHITE BLOOD COUNT 11.95 K/uL (4.8-10.8)
[2017-07-31] MEDS: NSS + 20MEQ KCL 1000ML 1,000 ML IV SCH (15:41)
[2017-07-31 15:55] LABS: BUN/CREATININE RATIO 19.7 (10-20); CALCIUM 8.4 mg/dl (8.5-10.1); CREATININE 1.2 mg/dl (0.60-1.20); MAGNESIUM 1.8 mg/dl (1.8-2.4); PHOSPHORUS 3.2 mg/dl (2.5-4.9); POTASSIUM 3.5 mmol/L (3.5-5.1)
[2017-07-31 15:59] LABS: BASO % 0.2 %; BASO ABS # 0.02 K/uL (0-0.2); COMPLETE YES; EOS % 0.6 %; IG% 0.3 %; LYMPH ABS # 1.55 K/uL (1.2-3.4); MONO % 11.4 %; NEUT % 74.5 %
[2017-07-31] MEDS: LINEZOLID / D5W 600 MG in PREMIXED IN D5W 300 ML IV SCH (16:29)
--- NOTE | 2017-07-31 17:08 | Progress Note ---
Subjective Date of Service: Jul 31, 2017. Subjective Pt evaluation today including: conversation w/ patient, physical exam, chart review, lab review, review of studies (x-rays, left leg), conversation w/ business system consultant (orthopedics - Dr. Ramos), review of inpatient medication list Pain: left BKA stump PO Intake: poor; +nausea Voiding: no voiding problems during the visit the patient was quite sleepy she answered questions appropriately but fell asleep at times her main complaint was that of pain followed by nausea Problem List Medical Problems: (1) Hematoma Status: Acute (2) Leg swelling Status: Acute (3) Osteomyelitis Status: Acute Review of Systems Constitutional: No fever Respiratory: No shortness of breath Cardiac: No chest pain Abdomen: + nausea, + vomiting, No pain Objective Vital Signs Date Time Temp Pulse Resp B/P (MAP) Pulse Ox O2 Delivery O2 Flow Rate FiO2 07/31/17 15:11 37.0 83 18 102/65 (77) 96 Room Air 07/31/17 11:15 38.0 07/31/17 07:48 39.3 91 18 114/72 (86) 96 Room Air 07/31/17 07:30 Room Air 07/31/17 00:00 39.5 95 18 198/99 Room Air 07/30/17 23:26 39.5 95 18 198/99 (132) 97 Room Air 07/30/17 22:20 94 20 157/93 96 07/30/17 22:15 94 20 157/93 96 Room Air 07/30/17 21:13 92 20 152/88 98 Room Air 07/30/17 18:32 37.3 89 16 149/84 97 Room Air Physical Exam General Appearance: no apparent distress, + pertinent finding (looks ill ) ENT: + pertinent finding (MM dry) Neck: no JVD Respiratory/Chest: lungs clear, no respiratory distress, no accessory muscle use Cardiovascular: regular rate, rhythm, no gallop, no murmur Abdomen: normal bowel sounds, non tender, soft, no organomegaly Extremities: no pedal edema, + pertinent finding (b/l BKA) Neurologic/Psychiatric: + pertinent finding (sleepy but when awake was a/o x 3) Skin: + pertinent finding (left BKA stump - from the knee down to the inferior border of the stump there is tense, gross swelling of the anterior compartment; this entire area is warm to touch and tender although there is no redness; there is a 4-5cm superifical ulcer of the distal stump from the original incision; the ulcer is horizontal; there is no drainage) Laboratory Results Last 24 Hours Test 07/30/17 20:10 07/30/17 23:05 07/31/17 00:00 07/31/17 07:36 White Blood Count 5.99 K/uL Red Blood Count 4.39 M/uL Hemoglobin 12.5 g/dL Hematocrit 37.0 % Mean Corpuscular Volume 84.3 fL Mean Corpuscular Hemoglobin 28.5 pg Mean Corpuscular Hemoglobin Concent 33.8 g/dl Platelet Count 226 K/uL Mean Platelet Volume 8.9 fL Neutrophils (%) (Auto) 54.2 % Lymphocytes (%) (Auto) 30.9 % Monocytes (%) (Auto) 12.0 % Eosinophils (%) (Auto) 2.5 % Basophils (%) (Auto) 0.2 % Neutrophils # (Auto) 3.25 K/uL Lymphocytes # (Auto) 1.85 K/uL Monocytes # (Auto) 0.72 K/uL Eosinophils # (Auto) 0.15 K/uL Basophils # (Auto) 0.01 K/uL RDW Standard Deviation 39.6 fL RDW Coefficient of Variation 13.1 % Immature Granulocyte % (Auto) 0.2 % Immature Granulocyte # (Auto) 0.01 K/uL Erythrocyte Sedimentation Rate 46 mm/hr Prothrombin Time 10.8 SECONDS Prothromb Time International Ratio 1.0 Sodium Level 132 mmol/L Potassium Level 3.8 mmol/L Chloride Level 100 mmol/L Carbon Dioxide Level 25 mmol/L Anion Gap 7.0 mmol/L Blood Urea Nitrogen 24 mg/dl Creatinine 0.83 mg/dl Est Creatinine Clear Calc Drug Dose 90.0 ml/min Estimated GFR () 96.0 Estimated GFR (Non- 82.8 BUN/Creatinine Ratio 28.6 Random Glucose 276 mg/dl Calcium Level 9.2 mg/dl C-Reactive Protein 9.88 mg/dl Bedside Glucose 261 mg/dl 244 mg/dl Urine Color YELLOW Urine Appearance CLEAR Urine pH 5.5 Urine Specific [place] 1.023 Urine Protein TRACE Urine Glucose (UA) 3+ Urine Ketones 2+ Urine Occult Blood TRACE Urine Nitrite POS Urine Bilirubin NEG Urine Urobilinogen NEG Urine Leukocyte Esterase NEG Urine WBC (Auto) 10-30 /hpf Urine RBC (Auto) 0-4 /hpf Urine Hyaline Casts (Auto) 1-5 /lpf Urine Epithelial Cells (Auto) 20-30 /lpf Urine Bacteria (Auto) NEG Test 07/31/17 15:30 White Blood Count 11.95 K/uL Red Blood Count 3.51 M/uL Hemoglobin 10.3 g/dL Hematocrit 30.1 % Mean Corpuscular Volume 85.8 fL Mean Corpuscular Hemoglobin 29.3 pg Mean Corpuscular Hemoglobin Concent 34.2 g/dl Platelet Count 198 K/uL Mean Platelet Volume 8.7 fL Neutrophils (%) (Auto) 74.5 % Lymphocytes (%) (Auto) 13.0 % Monocytes (%) (Auto) 11.4 % Eosinophils (%) (Auto) 0.6 % Basophils (%) (Auto) 0.2 % Neutrophils # (Auto) 8.91 K/uL Lymphocytes # (Auto) 1.55 K/uL Monocytes # (Auto) 1.36 K/uL Eosinophils # (Auto) 0.07 K/uL Basophils # (Auto) 0.02 K/uL RDW Standard Deviation 41.6 fL RDW Coefficient of Variation 13.2 % Immature Granulocyte % (Auto) 0.3 % Immature Granulocyte # (Auto) 0.04 K/uL Red Blood Cell Morphology Unremarkable Sodium Level 132 mmol/L Potassium Level 3.5 mmol/L Chloride Level 100 mmol/L Carbon Dioxide Level 24 mmol/L Anion Gap 8.0 mmol/L Blood Urea Nitrogen 24 mg/dl Creatinine 1.20 mg/dl Est Creatinine Clear Calc Drug Dose 62.2 ml/min Estimated GFR () 61.5 Estimated GFR (Non- 53.0 BUN/Creatinine Ratio 19.7 Random Glucose 181 mg/dl Calcium Level 8.4 mg/dl Phosphorus Level 3.2 mg/dl Magnesium Level 1.8 mg/dl Assessment and Plan 51yo female with: 1. sepsis 2nd to left BKA stump infection - acute/chronic. Has had multiple I & D's of the stump in the last 9 months. x-rays are concerning for tibial osteomyelitis. Will broaden her antibiotics to zosyn (from cefepime) and continue zyvox for MRSA coverage. Spoke with Dr. Ramos from [facility] who will consult and likely perform surgery in the AM. I question if there could be a drainable abscess in the anterior compartment as well - will obtain CT to r/o such. Follow blood cultures. 2. hyponatremia with dehydration - start NS hydration. repeat BMP now and then again in am. 3. T1DM - continue home basal-bolus regimen. Her novolog correction is fairly tight; will loosen to correction factor of 20 with carb ratio 1:6. If prolonged NPO status then institute insulin infusion. 4. CAD - no ischemic symptoms at this time. 5. hypothyroidism - check TSH in am. Cont synthroid in meantime. 6. nausea, emesis - could be due to her illness, narcotics, etc but check EKG to r/o coronary ischemia contributing. 7. h/o PE - noted. 8. DVT proph - heparin TID. 9. acute kidney injury - hydrate; likely due to sepsis. BMP in am. 10. PAD s/p BKA status bilaterally - statin, aspirin, etc. In light of her complex medical history, current sepsis, and potential for clinical worsening will transfer to telemetry. Continued [facility] stay due to: fever, abnormal vital signs, inadequate po fluid intake, inadequate oral pain control, ambulation difficulties, multiple IV medications needed Discharge planning: uncertain
[2017-07-31 18:35] VITALS: BP 102/65; PULSE 83; TEMP 37; O2SAT 96
--- NOTE | 2017-07-31 19:45 | DIAGNOSTIC IMAGING REPORT ---
L LOWER EXTREMITY WITHOUT CLINICAL HISTORY: 51 years-old Female presenting with eval for drainable abscess, left BKA. TECHNIQUE: Multidetector CT of the left knee was performed without the use of intravenous contrast. IV contrast: None. A dose lowering technique was used consistent with the principles of ALARA (as low as reasonably achievable). COMPARISON: Plain radiographs of the left lower extremity from 07/30/2017. CT DOSE (mGy.cm): The estimated cumulative dose is 246.33 mGy.cm. FINDINGS: Repair Cameraman topogram: Bilateral below the knee amputations. Soft tissue emphysema in the anterior compartment adjacent to the lateral cortex of the tibia. Soft tissue emphysema continues inferiorly to the stump. No associated fluid collection. Extensive subcutaneous and interfascial fat infiltration consistent with edema. Atherosclerosis. Skin thickening. No knee joint effusion. No acute fracture. No evidence of periosteal reaction or osseous erosion. IMPRESSION: No drainable fluid collection. However, soft tissue emphysema in the anterior compartment compartment along the tibia could raise concern for soft tissue infection. Necrotizing fasciitis not excluded. Correlate clinically. Findings could also suggest cellulitis versus extensive edema. The report will be called/faxed according to standard departmental protocol. Electronically signed by: Rohti Krueger M.D. 07/31/2017 7:44 PM Dictated Date/Time: 07/31/2017 7:36 PM
[2017-07-31 20:00] VITALS: O2SAT 96
[2017-07-31] MEDS: PIPERACILL/TAZOBAC IV 3.375 GM in DEXTROSE 5% 100ML 100 ML IV SCH (21:06)
[2017-08-01] VITALS (11 sets, daily range): BP systolic 88–118; BP diastolic 33–61; PULSE 68–74; TEMP 36.7–37.4; O2SAT 96–99
[2017-08-01] MEDS: HYDROmorphone INJ 0.5 MG/0.5 ML SYR IV PRN ×4 (00:33→19:40)
[2017-08-01] MEDS: NSS + 20MEQ KCL 1000ML 1,000 ML IV SCH ×3 (04:18→23:19)
[2017-08-01] MEDS: LINEZOLID / D5W 600 MG in PREMIXED IN D5W 300 ML IV SCH ×2 (04:19→16:22)
[2017-08-01] MEDS: LEVOTHYROXINE 112 MCG TAB PO SCH (04:21)
[2017-08-01] MEDS: HEPARIN SOD 5000 UNIT/0.5 ML CARP SQ SCH ×3 (04:41→22:38)
[2017-08-01] MEDS: PIPERACILL/TAZOBAC IV 3.375 GM in DEXTROSE 5% 100ML 100 ML IV SCH ×3 (05:27→22:22)
[2017-08-01 06:07] LABS: BASO % 0.2 %; BASO ABS # 0.02 K/uL (0-0.2); COMPLETE YES; EOS % 0.9 %; HEMATOCRIT 28.6 % (37-47); IG% 0.3 %; LYMPH ABS # 2.09 K/uL (1.2-3.4); MEAN CELL VOLUME 85.4 fL (80-100); MEAN CORPUSCULAR HEMOGLOBIN 28.7 pg (25-34); MEAN CORPUSCULAR HGB CONC 33.6 g/dl (32-36); MEAN PLATELET VOLUME 8.8 fL (7.4-10.4); MONO % 8.5 %; NEUT % 72.1 %; PLATELET COUNT 204 K/uL (130-400); RED BLOOD COUNT 3.35 M/uL (4.2-5.4); WHITE BLOOD COUNT 11.58 K/uL (4.8-10.8)
[2017-08-01 06:39] LABS: BUN/CREATININE RATIO 22.6 (10-20); CALCIUM 8.1 mg/dl (8.5-10.1); CREATININE 1.2 mg/dl (0.60-1.20); POTASSIUM 3.5 mmol/L (3.5-5.1)
[2017-08-01 06:50] LABS: THYROID STIMULATING HORMONE 1.83 uIu/ml (0.300-4.500)
[2017-08-01] MEDS: INSULIN ASPART 100 UNITS/ML 3 ML PEN SC SCH ×4 (07:00→21:00)
[2017-08-01] MEDS: LACTOBACILLUS ACIDOPHILUS (FLORANEX) TAB PO SCH ×4 (07:30→22:25)
[2017-08-01] MEDS: CHOLECALCIFEROL 1000 INTER.UNIT TAB PO SCH (07:57)
[2017-08-01] MEDS: ISOSORBIDE MONONITRATE 60 MG TABCR PO SCH ×2 (07:58→22:20)
[2017-08-01] MEDS: ASPIRIN 81 MG ECTAB PO SCH (07:58)
[2017-08-01] MEDS: RANOLAZINE 500 MG ER TAB PO SCH ×2 (08:00→22:21)
[2017-08-01] MEDS: INSULIN GLARGINE SOLOSTAR 100 UNITS/ML 3 ML PEN SC SCH ×2 (08:15→22:37)
[2017-08-01] MEDS: ALPRAZOLAM 0.5 MG TAB PO SCH ×3 (08:17→22:21)
[2017-08-01] MEDS ORDERED: SODIUM CHLORIDE 0.9% 1000ML 1,000 ML IV ONE (08:45)
[2017-08-01] MEDS ORDERED: NURSING VERBAL MED ORDER ONE (08:45)
--- NOTE | 2017-08-01 09:42 | Progress Note ---
Progress Note Date of Service Aug 01, 2017. Progress Note ID Consult Dictated #[id number] A/P: 1. Osteo L BKA -Continue emperic abx -Follow cultures -Will follow, thank you
[2017-08-01] MEDS ORDERED: EpHEDrine SULFATE INJ 50 MG/ML AMP ONE (10:41)
[2017-08-01] MEDS ORDERED: ROCURONIUM BROMIDE 10 MG/ML 5 ML VIAL IV ONE (10:41)
[2017-08-01] MEDS ORDERED: PROPOFOL IV EMULSION 10 MG/ML 20 ML VIAL IV ONE (10:41)
[2017-08-01] MEDS ORDERED: MIDAZOLAM HCL 1 MG/ML 2ML VIAL ONE ×2 (10:41→10:43)
[2017-08-01] MEDS ORDERED: GLYCOPYRROLATE INJ 0.2 MG/ML VIAL ONE (10:41)
[2017-08-01] MEDS ORDERED: LIDOCAINE HCL 2% 2 ML VIAL (20MG/ML) ONE (10:41)
[2017-08-01] MEDS ORDERED: SUCCINYLCHOLINE CHLORIDE 20 MG/ML 10 ML VIAL IV ONE (10:41)
[2017-08-01] MEDS ORDERED: DEXAMETHASONE SOD INJ 4 MG/ML VIAL ONE (10:41)
[2017-08-01] MEDS ORDERED: NEOSTIGMINE METHYLSULFATE 5 MG/5 ML SYR ONE (10:41)
[2017-08-01] MEDS ORDERED: PHENYLEPHRINE HCL INJ 10 MG/ML VIAL ONE ×2 (10:41→13:42)
[2017-08-01] MEDS ORDERED: ONDANSETRON INJ 2 MG/ML 2 ML VIAL ONE (10:41)
[2017-08-01] MEDS ORDERED: FENTANYL CITRATE INJ 50 MCG/1 ML 2 ML VIAL ONE (10:41)
[2017-08-01] MEDS ORDERED: ATROPINE SULFATE 0.1 MG/ML 5ML SYR IV PRN (10:45)
[2017-08-01] MEDS ORDERED: FENTANYL CITRATE INJ 50 MCG/1 ML 2 ML VIAL IV PRN (10:45)
[2017-08-01] MEDS ORDERED: PHENYLEPHRINE 100MCG/ML 5ML SYR IV PRN (10:45)
[2017-08-01] MEDS ORDERED: PROMETHAZINE HCL INJ 12.5 MG in SODIUM CHLORIDE 0.9% 50ML 50 ML IV PRN (10:45)
[2017-08-01] MEDS ORDERED: METOCLOPRAMIDE HCL INJ 5 MG/ML 2 ML VIAL IV PRN (10:45)
[2017-08-01] MEDS ORDERED: DEXAMETHASONE SOD INJ 4 MG/ML VIAL IV PRN (10:45)
[2017-08-01] MEDS ORDERED: EpHEDrine SULFATE INJ 50 MG/ML AMP IV PRN (10:45)
[2017-08-01] MEDS ORDERED: ONDANSETRON INJ 2 MG/ML 2 ML VIAL IV PRN (10:45)
[2017-08-01] MEDS ORDERED: BACITRACIN 50000 UNIT VIAL ONE (11:34)
--- NOTE | 2017-08-01 11:49 | Medical Consult ---
Consultation Note Date of Service Aug 01, 2017. Consultation Note This consultation on Mariana Freeman who is a 51-year-old female born 1965 who is well known to me and my service. I identified a prior left lung amputation on the patient and was doing initially well with that however then developed redness and irritation and a fullness within the below-knee mutation stump. She had a subsequent revision and was doing well for several months until she had the same symptoms recur. She was seen in my last office visit on Wednesday by my PA Dean Silva. At that point she was maintained on her oral antibiotics and was scheduled for recheck in one week. She had no fevers no chills and no particular elevation in her blood sugars. Over the next 24 hours she said that she had fevers at home increased pain and swelling in the left lower extremity distal aspect. She then presented to [facility] ER at which point she was evaluated and admitted to the hospitalist. She was placed on IV antibiotics and orthopedics was counseled. Her medical history is been reviewed and its present in the medical record. Physical exam: Afebrile vital signs stable. Examination of the left lower extremity demonstrates a 2.5-3 cm linear area of irritation at the suture line. There is fullness of the distal stump and tenderness both distal medial and distal lateral. Cap refill is less than 2 seconds and the lower extremity is warm. No obvious fluid collections are palpable. She has a right below-knee amputation as well. Laboratories and radiographs reviewed. CT scan reviewed. Impression: Cellulitis with possible abscess left lower extremity residual limb. Possible osteomyelitis anterior distal tib Recommendation: Patient was taken to the operative suite for irrigation debridement of her left lower extremity residual limb. Implantation of antibiotic laden stimulation beads. Maintain nothing by mouth. Consent on chart. Thank you for the opportunity consult in the care of this patient. Dom Ramos D.O.
[2017-08-01] MEDS ORDERED: TOBRAMYCIN SULF 1.2 GM VIAL (POWDER) ONE ×2 (12:22→12:30)
[2017-08-01] MEDS ORDERED: GENTAMICIN SULFATE 40 MG/ML 2 ML VIAL ONE (12:25)
--- NOTE | 2017-08-01 13:54 | [facility] Post Operative Brief Note ---
Immediate Operative Summary Operative Date Aug 01, 2017. Pre-Operative Diagnosis Cellulitis and osteomyelitis - Left lower extremity residual limb/anterior tibia Post-Operative Diagnosis 1. Abscess left lateral lower leg 2. Osteomyelitis distal anterior tibia Procedure(s) Performed Revision of Left Below Knee Amputation with implantation of antibiotic Stimulan Beads, Left Lower Extremity Irrigation and Debridement of Abcess Surgeon Dr Ramos Rubber Gasket Inspector Trimmer Surgeon(s) Jigar Escalera PA-C Estimated Blood Loss 20cc Findings See dictation Specimens As Per Surgeon Culture - Microbiology 1. Left Lower Leg Puss 2. Periosteum and Fascia Left Anterior Tibia Drains HV x 2 Anesthesia GLMA w/ popliteal block Complication(s) None Disposition Recovery Room / PACU
--- NOTE | 2017-08-01 14:23 | Anesthesiology Progress Note ---
Anesthesia Post Op Note Date & Time Aug 01, 2017 at 14:22 Vital Signs Pain Intensity: 0 Vital Signs Past 12 Hours Date Time Temp Pulse Resp B/P (MAP) Pulse Ox O2 Delivery O2 Flow Rate FiO2 08/01/17 14:15 66 18 94/53 97 Nasal Cannula 2 08/01/17 14:05 65 19 98/56 100 Oxymask 10 08/01/17 13:55 65 16 80/51 100 Oxymask 10 08/01/17 13:45 65 16 107/67 100 Oxymask 10 08/01/17 13:38 35.5 68 16 79/48 100 Oxymask 10 08/01/17 08:00 Nasal Cannula 2.0 08/01/17 07:27 37.2 72 17 88/47 (61) 98 Nasal Cannula 2.0 08/01/17 04:30 96 Room Air 08/01/17 04:13 36.8 74 16 93/33 (53) 96 Room Air Notes Mental Status: alert / awake / arousable, participated in evaluation Pt Amnestic to Procedure: Yes Nausea / Vomiting: adequately controlled Pain: adequately controlled Airway Patency, RR, SpO2: stable & adequate BP & HR: stable & adequate Hydration State: stable & adequate Anesthetic Complications: no major complications apparent Pt doing well. BP at baseline. Pain controlled.
--- NOTE | 2017-08-01 15:26 | INFECT. DISEASE CONSULTATION ---
DATE OF CONSULTATION: 08/01/2017 REQUESTING PHYSICIAN: Dr. Fidel Meza. HISTORY OF PRESENT ILLNESS: This is a 51-year-old female who is admitted with osteo of the left BKA site. She states she has had an open wound there for some time. Culture was obtained and is pending. She has had fevers up to 103 degrees over the past few days. She did have an MRI that did show osteomyelitis. She had been previously on Bactrim as an outpatient. She was admitted to the hospital and started on Zyvox and Zosyn. Her white blood cell count is normal. Blood and wound cultures are pending. She did have a T-max of 39.3. On my examination, she denies any chest pain, cough, shortness of breath, nausea, vomiting or diarrhea. She is tolerating antibiotics well. Her only complaint is pain in the left leg. All remaining review of systems are reviewed and are negative. PAST MEDICAL HISTORY: Significant for type 2 diabetes, hypertension, peripheral vascular disease, hyperlipidemia, coronary artery disease with [place], hypothyroidism, PE. PAST SURGICAL HISTORY: Significant for bilateral BKA, most recently done on the left in September 2016. Multiple debridements of the lower extremities, hysterectomy, cholecystectomy, port and cardiac stenting. FAMILY HISTORY: Noncontributory. SOCIAL HISTORY: Negative for tobacco use, alcohol use or drug use. ALLERGIES: SHE HAS ALLERGIES TO VANCOMYCIN. MEDICATIONS: Include Zosyn, Zyvox, Reglan, Xanax, aspirin, vitamin D, Lantus, Floranex, Synthroid, heparin subQ, Dilaudid, MiraLax, oxycodone, Tylenol, Maalox, milk of magnesia, Pepcid, Imdur and Ranexa. PHYSICAL EXAMINATION: VITAL SIGNS: She is currently afebrile, pulse 72, respiratory rate 18, blood pressure 88/47, oxygen saturation is 99% on 2 liter. GENERAL: She is awake, alert and oriented x3. She is in no acute distress. HEENT: Mucous membranes are moist. Extraocular muscles are intact. HEART: Regular. LUNGS: Clear. ABDOMEN: Soft. EXTREMITIES: Right BKA is clean, dry and intact. Left BKA does have superficial ulceration on the lateral aspect of the wound. There is no surrounding erythema. This is tender. This is warm to palpation. There is no purulent drainage. LABORATORY STUDIES: CBC reveals a white blood cell count of 11.5, hemoglobin 9.6 and platelets of 204. Sed rate is 46. Chemistry panel reveals a sodium of 132, potassium 3.5, chloride 100, bicarbonate 23, BUN 9, creatinine 27, glucose 127. Urinalysis is unremarkable. Wound and blood cultures are pending. Blood cultures are no growth to date. Lower extremity CT done on the shows no drainable fluid collection, necrotizing fascitis is not excluded. ASSESSMENT AND PLAN: Osteomyelitis of the left below knee amputation site with superficial wound. She will continue on empiric broad spectrum antibiotics pending the results of the final cultures. We will follow along with you. Thank you for this consultation.
[2017-08-01] MEDS: ONDANSETRON INJ 2 MG/ML 2 ML VIAL IV PRN (16:22)
--- NOTE | 2017-08-01 16:54 | Progress Note ---
Subjective Date of Service: Aug 01, 2017. Subjective Pt evaluation today including: conversation w/ patient, conversation w/ family ( at bedside), physical exam, chart review, lab review, review of studies (CT left leg), conversation w/ hr business partner consultant (orthopedics - Dr. Ramos), review of inpatient medication list Pain: left leg PO Intake: npo for surgery Voiding: no voiding problems tele stable overnight only 1 urinary void overnight - and it was concentrated BP low through the night and this am blood sugars ok Problem List Medical Problems: (1) Hematoma Status: Acute (2) Leg swelling Status: Acute (3) Osteomyelitis Status: Acute Review of Systems Constitutional: No fever, No chills Respiratory: No shortness of breath Cardiac: No chest pain Abdomen: No pain Objective Vital Signs Date Time Temp Pulse Resp B/P (MAP) Pulse Ox O2 Delivery O2 Flow Rate FiO2 08/01/17 16:00 Nasal Cannula 2.0 08/01/17 15:31 70 12 118/61 (80) 99 08/01/17 15:15 36.7 08/01/17 15:01 68 18 98/53 (68) 99 08/01/17 14:46 68 103/56 (72) 97 08/01/17 14:36 69 91/54 (66) 96 08/01/17 14:30 Nasal Cannula 2.0 08/01/17 14:25 36.4 68 14 98/53 97 Nasal Cannula 2 08/01/17 14:15 66 18 94/53 97 Nasal Cannula 2 08/01/17 14:05 65 19 98/56 100 Oxymask 10 08/01/17 13:55 65 16 80/51 100 Oxymask 10 08/01/17 13:45 65 16 107/67 100 Oxymask 10 08/01/17 13:38 35.5 68 16 79/48 100 Oxymask 10 08/01/17 08:00 Nasal Cannula 2.0 08/01/17 07:27 37.2 72 17 88/47 (61) 98 Nasal Cannula 2.0 08/01/17 04:30 96 Room Air 08/01/17 04:13 36.8 74 16 93/33 (53) 96 Room Air 08/01/17 00:16 37.4 74 16 114/53 (73) 96 Nasal Cannula 2.0 08/01/17 00:00 96 Room Air 9/30/17 20:00 96 Room Air 07/31/17 18:35 37.0 83 20 96 Physical Exam General Appearance: no apparent distress, + pertinent finding (chronically ill appearing) ENT: + pertinent finding (MM still dry) Neck: no JVD Respiratory/Chest: lungs clear, no respiratory distress, no accessory muscle use Cardiovascular: regular rate, rhythm, no gallop, no murmur Abdomen: normal bowel sounds, non tender, soft, no organomegaly Extremities: + pertinent finding (b/l BKA) Neurologic/Psychiatric: alert, oriented x 3 Skin: + pertinent finding (left BKA stump with linear, horizontal ulcer - no change; entire remaining tib-fib/stump is swollen and tense in the anterior portion - also no change) Laboratory Results Last 24 Hours Test 07/31/17 16:46 07/31/17 19:50 08/01/17 05:43 08/01/17 06:41 Bedside Glucose 219 mg/dl 228 mg/dl 127 mg/dl White Blood Count 11.58 K/uL Red Blood Count 3.35 M/uL Hemoglobin 9.6 g/dL Hematocrit 28.6 % Mean Corpuscular Volume 85.4 fL Mean Corpuscular Hemoglobin 28.7 pg Mean Corpuscular Hemoglobin Concent 33.6 g/dl Platelet Count 204 K/uL Mean Platelet Volume 8.8 fL Neutrophils (%) (Auto) 72.1 % Lymphocytes (%) (Auto) 18.0 % Monocytes (%) (Auto) 8.5 % Eosinophils (%) (Auto) 0.9 % Basophils (%) (Auto) 0.2 % Neutrophils # (Auto) 8.34 K/uL Lymphocytes # (Auto) 2.09 K/uL Monocytes # (Auto) 0.99 K/uL Eosinophils # (Auto) 0.10 K/uL Basophils # (Auto) 0.02 K/uL RDW Standard Deviation 41.5 fL RDW Coefficient of Variation 13.2 % Immature Granulocyte % (Auto) 0.3 % Immature Granulocyte # (Auto) 0.04 K/uL Sodium Level 132 mmol/L Potassium Level 3.5 mmol/L Chloride Level 100 mmol/L Carbon Dioxide Level 23 mmol/L Anion Gap 9.0 mmol/L Blood Urea Nitrogen 27 mg/dl Creatinine 1.20 mg/dl Est Creatinine Clear Calc Drug Dose 59.9 ml/min Estimated GFR () 61.5 Estimated GFR (Non- 53.0 BUN/Creatinine Ratio 22.6 Random Glucose 108 mg/dl Calcium Level 8.1 mg/dl Thyroid Stimulating Hormone (TSH) 1.830 uIu/ml Test 08/01/17 13:54 08/01/17 13:56 08/01/17 14:44 08/01/17 16:17 Bedside Glucose 74 mg/dl 72 mg/dl 76 mg/dl 78 mg/dl Assessment and Plan 51yo female with: 1. sepsis 2nd to left BKA stump infection - acute/chronic. Has had multiple I & D's of the stump in the last 9 months. x-rays concerning for tibial osteomyelitis. CT leg with probable abscess in anterior compartment; nec fasc cannot be ruled out. Cont zosyn & linezolid (has vanco allergy). To OR today for I/D and exploration of wound. Blood cultures thus far negative. 2. hypotension - 2nd to #1 - NS bolus x 1 now then continue copious hydration. 3. hyponatremia with dehydration - cont NS hydration. repeat BMP AM. 4. T1DM - continue home basal-bolus regimen but cut lantus dose in 1/2 this AM due to NPO status. Depending on glycemic status post-op she may need insulin infusion. 5. CAD - no ischemic symptoms at this time. EKG 07/31/17 without ischemic changes. 6. hypothyroidism - TSH wnl; Cont synthroid. 7. nausea, emesis - resolved. 8. h/o PE - noted. 9. DVT proph - heparin TID. 10. acute kidney injury - continue hydration. Cr steady at 1.2 today. BMP in am. 11. PAD s/p BKA status bilaterally - statin, aspirin, etc. updated Continued [facility] stay due to: abnormal vital signs, inadequate po fluid intake, inadequate oral pain control, ambulation difficulties, multiple IV medications needed Discharge planning: uncertain
--- NOTE | 2017-08-01 23:00 | OPERATIVE REPORT ---
DATE OF OPERATION: 08/01/2017 PREOPERATIVE DIAGNOSES: 1. Abscess, left lower lateral leg. 2. Osteomyelitis, distal anterior tibia, status post below knee amputation. POSTOPERATIVE DIAGNOSIS: Same. PROCEDURE: 1. Left revision below knee amputation. 2. Implantation antibiotic Stimulan. 3. Incision and drainage with irrigation and debridement of abscess, left lower extremity. SURGEON: Dr. Ramos. MOTORCYCLE MECHANIC: Due to the complex nature of the procedure, the entire surgery was performed with the patient assistant of Jigar Escalera PA-C. The help desk assistant, under direct supervision, was involved in the actual performance of all aspects of the surgical procedure including hemostasis, tissue retraction and incision, instrument management, patient positioning, and wound closure. ANESTHESIA: General LMA with popliteal block. SPECIMENS: None. DRAINS: None. COMPLICATIONS: None. BLOOD LOSS: 20 mL. PERTINENT HISTORY: This is a 51-year-old female well known to my practice had prior left below knee amputation, developed complications had a prior revision and now presents again several months later with recurrent swelling and pain of her left lower extremity. She had a CT scan which demonstrated possible emphysema in the distal anterior aspect of her distal tibial stump and was then scheduled for surgery as indicated. All potential risks, benefits, complications, alternatives, rehab, potential for incomplete relief of symptoms, need for further surgery, DVT, PE, , persistent pain, swelling, scarring, weakness, neurovascular injury, wound complications, and need for further revision were discussed with the patient. The patient decided to proceed with the procedure as indicated. PROCEDURE: The patient was taken to the operative suite after popliteal block was administered. Placed the operative suite, placed on the operating table. After review of the consent and identification of proper operative site, the patient was anesthetized, LMA was placed. Tourniquet was placed high on the left thigh over stockinette, prepped and draped in usual fashion, elevated and tourniquet inflated to 350 mmHg. There was no exsanguination performed due to the nature of the infection. Next, a 15 blade scalpel was then used to incise a small ellipse of distal tissue where there was a small portion of wound dehiscence in the anterior lateral aspect of the left lower leg. Next, the tissue was then incised and excised. This was then followed by an incision through the deeper layers of the anterior aspect of the left distal lower extremity until a fluid pocket was encountered in the distal and anterior aspect of the left anterior tibial region. Purulent material was evident and this was then sampled for aerobic, anaerobic and gram stain specimens and sent off to the lab. Also, a rongeur was then used to resect the periosteum and fascia from the anterior distal aspect of the tibia and sent fresh specimen for pathological specimen. Next, the abscess pocket was encountered in the distal anterior lateral aspect of the left lower extremity and this area of abscess was then debrided sharply with a rongeur, large curettes and 15 blade scalpel, debriding and exercising any necrotic appearing tissue. There is no evidence of gangrene and no evidence of extensive necrosis; however, the abscess pocket was debrided until clear. Next, the distal aspect of the tibia was then excised using a large rongeur until normal appearing tibial bone was then encountered more proximally. The distal tibial stump was then reshaped and then all necrotic and devitalized tissue was then carefully debrided with a rongeur until bleeding healthy tissue was encountered with normal appearing tissue texture, color and consistency. Next, a pulsatile lavage with bacitracin and 6 liters of fluid volume was then used to irrigate the abscess pocket in the distal aspect of the left lower extremity until clear. Next, top gloves and top sheet were then changed followed by creation of Stimulan antibiotic laden cement beads, 10 mL in total x 2.4 grams of tobramycin and 120 mg of gentamicin mixed into the bead solution and then the beads were placed in the small bead mat, allowed to solidify and then carefully packed into the abscess pocket along the distal tibia and along the distal left lower extremity. Next, Hemovac drains x2 were placed in the wound, one in the abscess pocket, one distal aspect of the stump followed by closure of the deep soft tissues with buried interrupted #1 Vicryl sutures followed by closure of the dermis with buried interrupted 2-0 Vicryls intermittently and then closure of the skin with combination of 3-0 and 2-0 nylon sutures. A sterile compressive dressing and Gabe wrap was then applied. The tourniquet was released. The patient was awakened and taken to recovery in stable condition. I attest to the content of the Intraoperative Record and any orders documented therein. Any exceptions are noted below. SRINATH
[2017-08-02] VITALS (8 sets, daily range): BP systolic 87–153; BP diastolic 50–65; PULSE 66–89; TEMP 36.9–38.6; O2SAT 93–99
[2017-08-02] MEDS: HYDROmorphone INJ 0.5 MG/0.5 ML SYR IV PRN ×5 (00:41→19:53)
[2017-08-02] MEDS: LINEZOLID / D5W 600 MG in PREMIXED IN D5W 300 ML IV SCH ×2 (03:59→16:27)
[2017-08-02] MEDS: ACETAMINOPHEN 325 MG TAB PO PRN (04:02)
[2017-08-02] MEDS: LEVOTHYROXINE 112 MCG TAB PO SCH (04:06)
[2017-08-02] MEDS: HEPARIN SOD 5000 UNIT/0.5 ML CARP SQ SCH ×3 (06:02→21:58)
[2017-08-02] MEDS: PIPERACILL/TAZOBAC IV 3.375 GM in DEXTROSE 5% 100ML 100 ML IV SCH ×3 (06:05→21:59)
[2017-08-02] MEDS: NSS + 20MEQ KCL 1000ML 1,000 ML IV SCH ×4 (06:33→21:59)
--- NOTE | 2017-08-02 07:49 | Progress Note ---
Subjective Date of Service: Aug 02, 2017. Subjective Pt evaluation today including: conversation w/ patient, physical exam, chart review, lab review, review of studies (op note from yesterday), review of inpatient medication list Pain: left leg but controlled PO Intake: ate breakfast; minimal nausea Voiding: no voiding problems tele stable overnight "I feel better" denies any major complaints no emesis BPs have normalized Problem List Medical Problems: (1) Hematoma Status: Acute (2) Leg swelling Status: Acute (3) Osteomyelitis Status: Acute Review of Systems Constitutional: + fever (this AM) Respiratory: No shortness of breath, No dyspnea on exertion Cardiac: No chest pain Abdomen: + nausea, No pain, No vomiting, No constipation (had BM yesterday) Objective Vital Signs Date Time Temp Pulse Resp B/P (MAP) Pulse Ox O2 Delivery O2 Flow Rate FiO2 08/02/17 04:19 99 Room Air 08/02/17 04:14 38.6 81 20 132/58 (82) 93 Room Air 08/02/17 00:21 99 Room Air 08/02/17 00:01 37.0 89 18 153/64 (93) 94 Room Air 08/01/17 20:00 99 Room Air 08/01/17 16:00 Nasal Cannula 2.0 08/01/17 15:31 70 12 118/61 (80) 99 08/01/17 15:15 36.7 08/01/17 15:01 68 18 98/53 (68) 99 08/01/17 14:46 68 103/56 (72) 97 08/01/17 14:36 69 91/54 (66) 96 08/01/17 14:30 Nasal Cannula 2.0 08/01/17 14:25 36.4 68 14 98/53 97 Nasal Cannula 2 08/01/17 14:15 66 18 94/53 97 Nasal Cannula 2 08/01/17 14:05 65 19 98/56 100 Oxymask 10 08/01/17 13:55 65 16 80/51 100 Oxymask 10 08/01/17 13:45 65 16 107/67 100 Oxymask 10 08/01/17 13:38 35.5 68 16 79/48 100 Oxymask 10 08/01/17 08:00 Nasal Cannula 2.0 Physical Exam General Appearance: no apparent distress, + pertinent finding (looks better) ENT: pharynx normal (MMM today) Neck: no JVD Respiratory/Chest: lungs clear, no respiratory distress, no accessory muscle use Cardiovascular: regular rate, rhythm, no gallop, no murmur Abdomen: normal bowel sounds, non tender, soft, no organomegaly Extremities: + pertinent finding (b/l BKA; left BKA wrapped in large INDY wrap with drain in place ) Neurologic/Psychiatric: alert, oriented x 3 Skin: + pallor, + pertinent finding (port, right chest - clean, nontender) Laboratory Results Last 24 Hours Test 08/01/17 13:54 08/01/17 13:56 08/01/17 14:44 08/01/17 16:17 Bedside Glucose 74 mg/dl 72 mg/dl 76 mg/dl 78 mg/dl Test 08/01/17 20:05 08/02/17 06:45 08/02/17 07:38 Bedside Glucose 128 mg/dl 120 mg/dl Assessment and Plan 51yo female with: 1. sepsis 2nd to left BKA stump infection - improving. s/p I/D yesterday by Dr. Ramos with debridement along with revision of BKA and placement of antibiotic beads. Cultures and periosteum biopsy also taken. Cont zosyn & linezolid (has vanco allergy). Blood cultures thus far negative. ID to follow and guide antibiotic management. Will likely need prolonged course of IV abx. 2. hypotension - 2nd to #1 - resolved. Cont NS hydration until PO intake is reliable. 3. hyponatremia with dehydration - await AM labs. 4. T1DM - continue home basal-bolus regimen. Controlled. Adjust as needed. 5. CAD - no ischemic symptoms at this time. EKG 07/31/17 without ischemic changes. 6. hypothyroidism - TSH wnl; Cont synthroid. 7. nausea, emesis - resolved. 8. h/o PE - noted. 9. DVT proph - heparin TID. 10. acute kidney injury - continue hydration. AM labs pending. 11. PAD s/p BKA status bilaterally - statin, aspirin, etc. 12. pain control - dilaudid prn. if remains stable this AM can likely transfer to med/surg later today consult PT, OT Continued [facility] stay due to: inadequate oral pain control, ambulation difficulties, multiple IV medications needed Discharge planning: uncertain
[2017-08-02 07:52] LABS: HEMATOCRIT 25.7 % (37-47); MEAN CELL VOLUME 85.4 fL (80-100); MEAN CORPUSCULAR HEMOGLOBIN 29.2 pg (25-34); MEAN CORPUSCULAR HGB CONC 34.2 g/dl (32-36); MEAN PLATELET VOLUME 8.6 fL (7.4-10.4); PLATELET COUNT 201 K/uL (130-400); RED BLOOD COUNT 3.01 M/uL (4.2-5.4); WHITE BLOOD COUNT 10.21 K/uL (4.8-10.8)
[2017-08-02 08:22] LABS: BASO % 0.1 %; BASO ABS # 0.01 K/uL (0-0.2); COMPLETE YES; EOS % 1.3 %; IG% 0.4 %; LYMPH % 20.6 %; MONO % 6.7 %; NEUT % 70.9 %
[2017-08-02 08:26] LABS: BUN/CREATININE RATIO 14.5 (10-20); CREATININE 0.64 mg/dl (0.60-1.20); MAGNESIUM 1.8 mg/dl (1.8-2.4); POTASSIUM 3.3 mmol/L (3.5-5.1)
[2017-08-02] MEDS: LACTOBACILLUS ACIDOPHILUS (FLORANEX) TAB PO SCH ×4 (08:58→21:48)
[2017-08-02] MEDS: ISOSORBIDE MONONITRATE 60 MG TABCR PO SCH ×2 (08:59→21:49)
[2017-08-02] MEDS: ASPIRIN 81 MG ECTAB PO SCH (08:59)
[2017-08-02] MEDS: CHOLECALCIFEROL 1000 INTER.UNIT TAB PO SCH (08:59)
[2017-08-02] MEDS: RANOLAZINE 500 MG ER TAB PO SCH ×2 (08:59→21:52)
[2017-08-02] MEDS: INSULIN ASPART 100 UNITS/ML 3 ML PEN SC SCH ×4 (09:01→21:00)
[2017-08-02] MEDS: INSULIN GLARGINE SOLOSTAR 100 UNITS/ML 3 ML PEN SC SCH ×2 (09:02→21:57)
[2017-08-02] MEDS: POTASSIUM CHLORIDE 20 MEQ TABCR PO SCH ×2 (09:06→21:51)
[2017-08-02] MEDS: ALPRAZOLAM 0.5 MG TAB PO SCH ×3 (09:10→21:59)
[2017-08-02] MEDS: OXYCODONE HCL IR 5 MG TAB (IMMEDIATE RELEASE) PO PRN ×2 (09:11→14:57)
--- NOTE | 2017-08-02 11:08 | Progress Note ---
Subjective Date of Service: Aug 02, 2017. Subjective Pt evaluation today including: conversation w/ patient, physical exam, chart review, lab review s/p I&D. cultures with staph species. blood cultures remain negative. no pain, no fevers overnight. tolerating abx. all remaining ros reviewed and are negative. Problem List Medical Problems: (1) Hematoma Status: Acute (2) Leg swelling Status: Acute (3) Osteomyelitis Status: Acute Objective Vital Signs Date Time Temp Pulse Resp B/P (MAP) Pulse Ox O2 Delivery O2 Flow Rate FiO2 08/02/17 10:46 Room Air 08/02/17 08:12 37.5 70 18 139/65 (89) 96 08/02/17 04:19 99 Room Air 08/02/17 04:14 38.6 81 20 132/58 (82) 93 Room Air 08/02/17 00:21 99 Room Air 08/02/17 00:01 37.0 89 18 153/64 (93) 94 Room Air 08/01/17 20:00 99 Room Air 08/01/17 16:00 Nasal Cannula 2.0 08/01/17 15:31 70 12 118/61 (80) 99 08/01/17 15:15 36.7 08/01/17 15:01 68 18 98/53 (68) 99 08/01/17 14:46 68 103/56 (72) 97 08/01/17 14:36 69 91/54 (66) 96 08/01/17 14:30 Nasal Cannula 2.0 08/01/17 14:25 36.4 68 14 98/53 97 Nasal Cannula 2 08/01/17 14:15 66 18 94/53 97 Nasal Cannula 2 08/01/17 14:05 65 19 98/56 100 Oxymask 10 08/01/17 13:55 65 16 80/51 100 Oxymask 10 08/01/17 13:45 65 16 107/67 100 Oxymask 10 08/01/17 13:38 35.5 68 16 79/48 100 Oxymask 10 Physical Exam General Appearance: WD/WN, no apparent distress Eyes: normal inspection, EOMI Neck: supple Respiratory/Chest: lungs clear, normal breath sounds, no respiratory distress Cardiovascular: regular rate, rhythm Abdomen: non tender, soft Neurologic/Psychiatric: alert, oriented x 3 Skin: normal color Comments: l bka dressing c/d/i Laboratory Results Item Value Date Time Gram Stain - Final Resulted 08/01/17 1220 Tissue Leg Lower Left Gram Stain - Final Resulted 08/01/17 1215 Drainage-Deep Left Lower Extremity Blood Culture - Preliminary Resulted 07/30/172041 Blood NO GROWTH TO DATE. Blood Culture - Preliminary Resulted 07/30/172009 Blood NO GROWTH TO DATE. Last 24 Hours Test 08/01/17 13:54 08/01/17 13:56 08/01/17 14:44 08/01/17 16:17 Bedside Glucose 74 mg/dl 72 mg/dl 76 mg/dl 78 mg/dl Test 08/01/17 20:05 08/02/17 06:45 08/02/17 07:38 Bedside Glucose 128 mg/dl 120 mg/dl White Blood Count 10.21 K/uL Red Blood Count 3.01 M/uL Hemoglobin 8.8 g/dL Hematocrit 25.7 % Mean Corpuscular Volume 85.4 fL Mean Corpuscular Hemoglobin 29.2 pg Mean Corpuscular Hemoglobin Concent 34.2 g/dl Platelet Count 201 K/uL Mean Platelet Volume 8.6 fL Neutrophils (%) (Auto) 70.9 % Lymphocytes (%) (Auto) 20.6 % Monocytes (%) (Auto) 6.7 % Eosinophils (%) (Auto) 1.3 % Basophils (%) (Auto) 0.1 % Neutrophils # (Auto) 7.25 K/uL Lymphocytes # (Auto) 2.10 K/uL Monocytes # (Auto) 0.68 K/uL Eosinophils # (Auto) 0.13 K/uL Basophils # (Auto) 0.01 K/uL RDW Standard Deviation 41.5 fL RDW Coefficient of Variation 13.2 % Immature Granulocyte % (Auto) 0.4 % Immature Granulocyte # (Auto) 0.04 K/uL Red Blood Cell Morphology Unremarkable Sodium Level 135 mmol/L Potassium Level 3.3 mmol/L Chloride Level 103 mmol/L Carbon Dioxide Level 21 mmol/L Anion Gap 11.0 mmol/L Blood Urea Nitrogen 9 mg/dl Creatinine 0.64 mg/dl Est Creatinine Clear Calc Drug Dose 113.8 ml/min Estimated GFR () 121.4 Estimated GFR (Non- 104.8 BUN/Creatinine Ratio 14.5 Random Glucose 117 mg/dl Calcium Level 8.0 mg/dl Magnesium Level 1.8 mg/dl Assessment and Plan (1) Cellulitis Assessment & Plan: continue abx, follow cultures. (2) Wound dehiscence, surgical Continued [facility] stay due to: inadequate oral pain control, ambulation difficulties, multiple IV medications needed Discharge planning: uncertain
--- NOTE | 2017-08-02 14:00 | Orthopedic Progress Note ---
Orthopedic Progress Note Date of Service Aug 02, 2017. Subjective Post OP Day: 1 Reports: complaints (PATIENT HAVING SOME PAIN CONTROL ISSUES. SHE CHRONICALLY TAKES 2 TAB 10MG OXYCODONE AT HOME 2-3X/DAY. SHE IS CURRENTLY ORDERED 10MG Q6HRS.), Denies: feeling well, chest pain, SOB, nausea / vomiting, light headedness, calf pain Objective Date Time Temp Pulse Resp B/P (MAP) Pulse Ox O2 Delivery O2 Flow Rate FiO2 08/02/17 12:00 Room Air 08/02/17 11:10 36.9 66 20 87/50 (62) 96 08/02/17 10:46 Room Air 08/02/17 08:12 37.5 70 18 139/65 (89) 96 08/02/17 08:00 Room Air 08/02/17 04:19 99 Room Air 08/02/17 04:14 38.6 81 20 132/58 (82) 93 Room Air 08/02/17 00:21 99 Room Air 08/02/17 00:01 37.0 89 18 153/64 (93) 94 Room Air 08/01/17 20:00 99 Room Air 08/01/17 16:00 Nasal Cannula 2.0 08/01/17 15:31 70 12 118/61 (80) 99 08/01/17 15:15 36.7 08/01/17 15:01 68 18 98/53 (68) 99 08/01/17 14:46 68 103/56 (72) 97 08/01/17 14:36 69 91/54 (66) 96 08/01/17 14:30 Nasal Cannula 2.0 08/01/17 14:25 36.4 68 14 98/53 97 Nasal Cannula 2 08/01/17 14:15 66 18 94/53 97 Nasal Cannula 2 08/01/17 14:05 65 19 98/56 100 Oxymask 10 Laboratory Results 24 Hours: Test 08/02/17 07:38 White Blood Count 10.21 K/uL Red Blood Count 3.01 M/uL Hemoglobin 8.8 g/dL Hematocrit 25.7 % Mean Corpuscular Volume 85.4 fL Mean Corpuscular Hemoglobin 29.2 pg Mean Corpuscular Hemoglobin Concent 34.2 g/dl Platelet Count 201 K/uL Mean Platelet Volume 8.6 fL Neutrophils (%) (Auto) 70.9 % Lymphocytes (%) (Auto) 20.6 % Monocytes (%) (Auto) 6.7 % Eosinophils (%) (Auto) 1.3 % Basophils (%) (Auto) 0.1 % Neutrophils # (Auto) 7.25 K/uL Lymphocytes # (Auto) 2.10 K/uL Monocytes # (Auto) 0.68 K/uL Eosinophils # (Auto) 0.13 K/uL Basophils # (Auto) 0.01 K/uL Assessment & Plan Assessment: POD#1 SP I&D LEFT BKA SITE Plan: PAIN MANAGEMENT- PATIENT IS A CHRONIC NARCOTIC USER, WILL BE DIFFICULT TO CONTROL. CONSIDER CHANGING OXYCODONE TO 10MG Q 4HRS? FOLLOW CULTURES- GRAM STAIN POSITIVE, CULTURES STILL PENDING CONTINUE IV ZOSYN FOR NOW APPRECIATE ID INPUT, WILL FOLLOW RECOMMENDATIONS. MEDICAL MANAGEMENT DRESSING CHANGE IN AM.
[2017-08-02] MEDS ORDERED: HYDROmorphone INJ 0.5 MG/0.5 ML SYR IV STA (21:23)
[2017-08-03] VITALS (10 sets, daily range): BP systolic 106–150; BP diastolic 62–81; PULSE 69–81; TEMP 36.9–37.3; O2SAT 94–97
[2017-08-03] MEDS: HYDROmorphone INJ 0.5 MG/0.5 ML SYR IV PRN ×3 (00:12→09:24)
[2017-08-03] MEDS: OXYCODONE HCL IR 5 MG TAB (IMMEDIATE RELEASE) PO PRN (01:33)
[2017-08-03] MEDS: LINEZOLID / D5W 600 MG in PREMIXED IN D5W 300 ML IV SCH (04:15)
[2017-08-03] MEDS: PIPERACILL/TAZOBAC IV 3.375 GM in DEXTROSE 5% 100ML 100 ML IV SCH ×2 (06:04→14:13)
[2017-08-03] MEDS: HEPARIN SOD 5000 UNIT/0.5 ML CARP SQ SCH ×3 (06:06→21:38)
[2017-08-03] MEDS: LEVOTHYROXINE 112 MCG TAB PO SCH (06:06)
[2017-08-03] MEDS ORDERED: NALOXONE HCL 0.4 MG/1 ML VIAL/CARP IV PRN (07:45)
[2017-08-03] MEDS: LACTOBACILLUS ACIDOPHILUS (FLORANEX) TAB PO SCH ×4 (08:23→21:28)
[2017-08-03] MEDS: INSULIN ASPART 100 UNITS/ML 3 ML PEN SC SCH ×4 (08:23→21:00)
[2017-08-03 08:28] LABS: BASO % 0.1 %; BASO ABS # 0.01 K/uL (0-0.2); EOS % 2.4 %; IG% 0.4 %; LYMPH ABS # 2.03 K/uL (1.2-3.4); MEAN CELL VOLUME 85.7 fL (80-100); MEAN CORPUSCULAR HEMOGLOBIN 29.6 pg (25-34); MEAN CORPUSCULAR HGB CONC 34.6 g/dl (32-36); MEAN PLATELET VOLUME 8.9 fL (7.4-10.4); MONO % 6.4 %; NEUT % 64.7 %; PLATELET COUNT 217 K/uL (130-400); WHITE BLOOD COUNT 7.82 K/uL (4.8-10.8)
[2017-08-03 08:54] LABS: COMPLETE YES; CREATININE 0.53 mg/dl (0.60-1.20); ECHINOCYTES 1+; POTASSIUM 4.1 mmol/L (3.5-5.1)
[2017-08-03] MEDS: ALPRAZOLAM 0.5 MG TAB PO SCH ×3 (09:24→21:29)
[2017-08-03] MEDS: NSS + 20MEQ KCL 1000ML 1,000 ML IV SCH ×3 (09:42→21:43)
[2017-08-03] MEDS: INSULIN GLARGINE SOLOSTAR 100 UNITS/ML 3 ML PEN SC SCH ×2 (09:50→21:37)
[2017-08-03] MEDS: POLYETHYLENE (MIRALAX) 17 GM PACK PO SCH (09:52)
[2017-08-03] MEDS: RANOLAZINE 500 MG ER TAB PO SCH ×2 (09:52→21:29)
[2017-08-03] MEDS: CHOLECALCIFEROL 1000 INTER.UNIT TAB PO SCH (09:52)
[2017-08-03] MEDS: SENNA 8.6 MG TAB PO SCH (09:52)
[2017-08-03] MEDS: ASPIRIN 81 MG ECTAB PO SCH (09:53)
[2017-08-03] MEDS: ISOSORBIDE MONONITRATE 60 MG TABCR PO SCH ×2 (09:53→21:29)
[2017-08-03] MEDS: POTASSIUM CHLORIDE 20 MEQ TABCR PO SCH ×2 (09:53→21:28)
--- NOTE | 2017-08-03 10:14 | Progress Note ---
Subjective Date of Service: Aug 03, 2017. Subjective Pt evaluation today including: conversation w/ patient, physical exam, chart review, lab review, review of inpatient medication list Pain: left leg stump - severe - 07/11 PO Intake: slowly improving Voiding: no voiding problems tele - NSR overnight main issue is left leg pain requiring frequent dilaudid IV no vomiting minimal nausea no cp or dyspnea Problem List Medical Problems: (1) Hematoma Status: Acute (2) Leg swelling Status: Acute (3) Osteomyelitis Status: Acute Review of Systems Constitutional: No fever, No chills Respiratory: No shortness of breath, No dyspnea on exertion Cardiac: No chest pain, No orthopnea Abdomen: No pain Objective Vital Signs Date Time Temp Pulse Resp B/P (MAP) Pulse Ox O2 Delivery O2 Flow Rate FiO2 08/03/17 08:45 96 Room Air 08/03/17 07:34 37.1 71 18 118/64 (82) 96 Room Air 08/03/17 04:00 Room Air 08/03/17 03:57 37.2 70 17 119/66 (83) 95 Room Air 08/03/17 00:46 37.1 69 17 106/62 (77) 96 Room Air 08/02/17 23:59 Room Air 08/02/17 20:00 Room Air 08/02/17 19:14 36.9 68 16 98/53 (68) 96 Room Air 08/02/17 16:00 Room Air 08/02/17 15:18 36.9 72 23 109/61 (77) 93 Room Air 08/02/17 12:00 Room Air 08/02/17 11:10 36.9 66 20 87/50 (62) 96 08/02/17 10:46 Room Air Physical Exam General Appearance: no apparent distress, + pertinent finding (chronically ill appearing) ENT: + pertinent finding (MM more moist today) Neck: no JVD Respiratory/Chest: lungs clear, no respiratory distress, no accessory muscle use, + decreased breath sounds (bases) Cardiovascular: regular rate, rhythm, no gallop, + systolic murmur (1/6 ANIBAL mid LSB) Abdomen: normal bowel sounds, non tender, soft, no organomegaly Extremities: + pertinent finding (right BKA; left BKA stump covered in large dressing/INDY with drain in place) Neurologic/Psychiatric: alert, oriented x 3 Skin: + pallor Laboratory Results Last 24 Hours Test 08/02/17 12:30 08/02/17 16:06 08/02/17 20:25 08/03/17 06:51 Bedside Glucose 188 mg/dl 105 mg/dl 138 mg/dl 111 mg/dl Test 08/03/17 07:47 White Blood Count 7.82 K/uL Red Blood Count 2.80 M/uL Hemoglobin 8.3 g/dL Hematocrit 24.0 % Mean Corpuscular Volume 85.7 fL Mean Corpuscular Hemoglobin 29.6 pg Mean Corpuscular Hemoglobin Concent 34.6 g/dl Platelet Count 217 K/uL Mean Platelet Volume 8.9 fL Neutrophils (%) (Auto) 64.7 % Lymphocytes (%) (Auto) 26.0 % Monocytes (%) (Auto) 6.4 % Eosinophils (%) (Auto) 2.4 % Basophils (%) (Auto) 0.1 % Neutrophils # (Auto) 5.06 K/uL Lymphocytes # (Auto) 2.03 K/uL Monocytes # (Auto) 0.50 K/uL Eosinophils # (Auto) 0.19 K/uL Basophils # (Auto) 0.01 K/uL RDW Standard Deviation 42.8 fL RDW Coefficient of Variation 13.4 % Immature Granulocyte % (Auto) 0.4 % Immature Granulocyte # (Auto) 0.03 K/uL Echinocytes 1+ Sodium Level 137 mmol/L Potassium Level 4.1 mmol/L Chloride Level 107 mmol/L Carbon Dioxide Level 22 mmol/L Anion Gap 8.0 mmol/L Blood Urea Nitrogen 5 mg/dl Creatinine 0.53 mg/dl Est Creatinine Clear Calc Drug Dose 136.6 ml/min Estimated GFR () 129.2 Estimated GFR (Non- 111.5 BUN/Creatinine Ratio 10.0 Random Glucose 94 mg/dl Calcium Level 8.0 mg/dl Assessment and Plan 51yo female with: 1. sepsis 2nd to left BKA stump infection due to MSSA - improving. POD #2, s/p I/D by Dr. Ramos with debridement along with revision of BKA and placement of antibiotic beads. Cultures and periosteum biopsy with MSSA. Cont zosyn; can likely narrow further - defer to ID. d/c linezolid. Blood cultures thus far negative. ID to follow and guide antibiotic management. Will likely need prolonged course of IV abx. 2. hypotension - 2nd to #1 - resolved. Cont NS hydration but decrease rate to 75cc/hr. 3. hyponatremia with dehydration - resolved. 4. T1DM - continue home basal-bolus regimen. Controlled. Adjust as needed. 5. CAD - no ischemic symptoms at this time. EKG 07/31/17 without ischemic changes. 6. hypothyroidism - TSH wnl; Cont synthroid. 7. 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 Adjust as needed. Neuropathic component as well? 8. h/o PE - noted. 9. DVT proph - heparin TID. 10. acute kidney injury - resolved. 11. PAD s/p BKA status bilaterally - statin, aspirin, etc. 12. acute blood loss anemia - CBC in am; start ferrous sulfate 325mg BID. if remains stable this AM on [employer]NS [employer] SALES REPRESENTATIVE dilaudid can likely transfer to med/surg later today PT, OT when able Continued [facility] stay due to: inadequate oral pain control, ambulation difficulties, multiple IV medications needed Discharge planning: uncertain
[2017-08-03] MEDS: HYDROmorphone HCL 0.5MG/ML 50 ML CASSETTE IV PRN ×3 (11:01→22:49)
[2017-08-03] MEDS: SODIUM CHLORIDE 0.9% 1000ML 1,000 ML IV SCH (11:07)
[2017-08-03] MEDS: FERROUS SULFATE 325 MG TAB PO SCH ×2 (12:50→17:56)
--- NOTE | 2017-08-03 13:14 | Orthopedic Progress Note ---
Orthopedic Progress Note Date of Service Aug 03, 2017. Subjective Post OP Day: 2 Reports: feeling well Additional Notes: Better pain control since DOCK PUMPER started. No other complaints. Objective Dressing removed. Wound very benign. No erythema noted. Swelling distally. No purulent drainage. Redressed. Date Time Temp Pulse Resp B/P (MAP) Pulse Ox O2 Delivery O2 Flow Rate FiO2 08/03/17 11:22 37.3 71 18 127/66 (86) 97 Room Air 08/03/17 08:45 96 Room Air 08/03/17 07:34 37.1 71 18 118/64 (82) 96 Room Air 08/03/17 04:00 Room Air 08/03/17 03:57 37.2 70 17 119/66 (83) 95 Room Air 08/03/17 00:46 37.1 69 17 106/62 (77) 96 Room Air 08/02/17 23:59 Room Air 08/02/17 20:00 Room Air 08/02/17 19:14 36.9 68 16 98/53 (68) 96 Room Air 08/02/17 16:00 Room Air 08/02/17 15:18 36.9 72 23 109/61 (77) 93 Room Air Laboratory Results 24 Hours: Test 08/03/17 07:47 White Blood Count 7.82 K/uL Red Blood Count 2.80 M/uL Hemoglobin 8.3 g/dL Hematocrit 24.0 % Mean Corpuscular Volume 85.7 fL Mean Corpuscular Hemoglobin 29.6 pg Mean Corpuscular Hemoglobin Concent 34.6 g/dl Platelet Count 217 K/uL Mean Platelet Volume 8.9 fL Neutrophils (%) (Auto) 64.7 % Lymphocytes (%) (Auto) 26.0 % Monocytes (%) (Auto) 6.4 % Eosinophils (%) (Auto) 2.4 % Basophils (%) (Auto) 0.1 % Neutrophils # (Auto) 5.06 K/uL Lymphocytes # (Auto) 2.03 K/uL Monocytes # (Auto) 0.50 K/uL Eosinophils # (Auto) 0.19 K/uL Basophils # (Auto) 0.01 K/uL Assessment & Plan Assessment: POD#2 SP I&D LEFT BKA SITE Plan: PAIN MANAGEMENT- Currently on DOCK PUMPER for pain control. FOLLOW CULTURES- Staph Aureus noted on 2 cx's. MSSA (one with R to Erythromycin) Antibx as per Med/ID Teams APPRECIATE ID INPUT, WILL FOLLOW RECOMMENDATIONS. MEDICAL MANAGEMENT Start daily dressing changes.
--- NOTE | 2017-08-03 15:03 | Progress Note ---
Subjective Date of Service: Aug 03, 2017. Subjective Pt evaluation today including: conversation w/ patient, physical exam, chart review, lab review resting comfortably, pain controlled, no fevers, tolerating abx. undergoing dressing changes per ortho. tolerating abx. zyvox stopped. all wound culture with MSSA. blood cultures negative to date. Problem List Medical Problems: (1) Hematoma Status: Acute (2) Leg swelling Status: Acute (3) Osteomyelitis Status: Acute Objective Vital Signs Date Time Temp Pulse Resp B/P (MAP) Pulse Ox O2 Delivery O2 Flow Rate FiO2 08/03/17 12:00 Room Air 08/03/17 11:22 37.3 71 18 127/66 (86) 97 Room Air 08/03/17 08:45 96 Room Air 08/03/17 08:00 Room Air 08/03/17 07:34 37.1 71 18 118/64 (82) 96 Room Air 08/03/17 04:00 Room Air 08/03/17 03:57 37.2 70 17 119/66 (83) 95 Room Air 08/03/17 00:46 37.1 69 17 106/62 (77) 96 Room Air 08/02/17 23:59 Room Air 08/02/17 20:00 Room Air 08/02/17 19:14 36.9 68 16 98/53 (68) 96 Room Air 08/02/17 16:00 Room Air 08/02/17 15:18 36.9 72 23 109/61 (77) 93 Room Air Physical Exam General Appearance: WD/WN, no apparent distress Eyes: normal inspection Neck: supple Respiratory/Chest: normal breath sounds, no respiratory distress Cardiovascular: no edema Abdomen: soft Extremities: non-tender, no pedal edema, + pertinent finding (dressing c/d/i) Neurologic/Psychiatric: alert, oriented x 3 Skin: normal color Laboratory Results Item Value Date Time Gram Stain - Final Resulted 08/01/17 1220 Tissue Leg Lower Left Gram Stain - Final Resulted 08/01/17 1215 Drainage-Deep Left Lower Extremity Gram Stain - Final Complete 07/31/17 0000 Skin Knee Left Blood Culture - Preliminary Resulted 07/30/17 2042 Blood NO GROWTH TO DATE. Blood Culture - Preliminary Resulted 07/30/17 2010 Blood NO GROWTH TO DATE. Last 24 Hours Test 08/02/17 16:06 08/02/17 20:25 08/03/17 06:51 08/03/17 07:47 Bedside Glucose 105 mg/dl 138 mg/dl 111 mg/dl White Blood Count 7.82 K/uL Red Blood Count 2.80 M/uL Hemoglobin 8.3 g/dL Hematocrit 24.0 % Mean Corpuscular Volume 85.7 fL Mean Corpuscular Hemoglobin 29.6 pg Mean Corpuscular Hemoglobin Concent 34.6 g/dl Platelet Count 217 K/uL Mean Platelet Volume 8.9 fL Neutrophils (%) (Auto) 64.7 % Lymphocytes (%) (Auto) 26.0 % Monocytes (%) (Auto) 6.4 % Eosinophils (%) (Auto) 2.4 % Basophils (%) (Auto) 0.1 % Neutrophils # (Auto) 5.06 K/uL Lymphocytes # (Auto) 2.03 K/uL Monocytes # (Auto) 0.50 K/uL Eosinophils # (Auto) 0.19 K/uL Basophils # (Auto) 0.01 K/uL RDW Standard Deviation 42.8 fL RDW Coefficient of Variation 13.4 % Immature Granulocyte % (Auto) 0.4 % Immature Granulocyte # (Auto) 0.03 K/uL Echinocytes 1+ Sodium Level 137 mmol/L Potassium Level 4.1 mmol/L Chloride Level 107 mmol/L Carbon Dioxide Level 22 mmol/L Anion Gap 8.0 mmol/L Blood Urea Nitrogen 5 mg/dl Creatinine 0.53 mg/dl Est Creatinine Clear Calc Drug Dose 136.6 ml/min Estimated GFR () 129.2 Estimated GFR (Non- 111.5 BUN/Creatinine Ratio 10.0 Random Glucose 94 mg/dl Calcium Level 8.0 mg/dl Test 08/03/17 11:09 Bedside Glucose 89 mg/dl Assessment and Plan (1) Cellulitis Assessment & Plan: will change abx to rocephin 2g daily, min 4 weeks. will need weekly cbc, cmp, esr while on abx. will need local wound care as well (2) Wound dehiscence, surgical Continued [facility] stay due to: inadequate oral pain control, ambulation difficulties, multiple IV medications needed Discharge planning: uncertain
[2017-08-03] MEDS: CEFTRIAXONE SOD INJ 2,000 MG in DEXTROSE 5% 50ML 50 ML IV SCH (21:26)
[2017-08-03] MEDS: ONDANSETRON INJ 2 MG/ML 2 ML VIAL IV PRN (23:43)
[2017-08-04] VITALS (9 sets, daily range): BP systolic 127–162; BP diastolic 66–81; PULSE 73–78; TEMP 37–37.8; O2SAT 93–96
[2017-08-04] MEDS: LEVOTHYROXINE 112 MCG TAB PO SCH (05:32)
[2017-08-04] MEDS: HEPARIN SOD 5000 UNIT/0.5 ML CARP SQ SCH ×3 (05:38→21:50)
[2017-08-04 05:49] LABS: HEMATOCRIT 26.8 % (37-47); MEAN CELL VOLUME 85.4 fL (80-100); MEAN PLATELET VOLUME 8.5 fL (7.4-10.4); PLATELET COUNT 269 K/uL (130-400); RED BLOOD COUNT 3.14 M/uL (4.2-5.4); WHITE BLOOD COUNT 7.71 K/uL (4.8-10.8)
[2017-08-04 06:25] LABS: BUN/CREATININE RATIO 5.8 (10-20); CALCIUM 8.3 mg/dl (8.5-10.1); CREATININE 0.49 mg/dl (0.60-1.20)
[2017-08-04] MEDS: HYDROmorphone HCL 0.5MG/ML 50 ML CASSETTE IV PRN ×2 (07:00→15:00)
[2017-08-04] MEDS: ONDANSETRON INJ 2 MG/ML 2 ML VIAL IV PRN (07:26)
[2017-08-04] MEDS: SODIUM CHLORIDE 0.9% 1000ML 1,000 ML IV SCH ×2 (07:26→14:58)
[2017-08-04] MEDS: POLYETHYLENE (MIRALAX) 17 GM PACK PO SCH (09:00)
[2017-08-04] MEDS: FERROUS SULFATE 325 MG TAB PO SCH ×2 (09:02→18:38)
[2017-08-04] MEDS: LACTOBACILLUS ACIDOPHILUS (FLORANEX) TAB PO SCH ×4 (09:03→21:40)
[2017-08-04] MEDS: ISOSORBIDE MONONITRATE 60 MG TABCR PO SCH ×2 (09:04→21:40)
[2017-08-04] MEDS: ASPIRIN 81 MG ECTAB PO SCH (09:04)
[2017-08-04] MEDS: POTASSIUM CHLORIDE 20 MEQ TABCR PO SCH ×2 (09:05→21:41)
[2017-08-04] MEDS: CHOLECALCIFEROL 1000 INTER.UNIT TAB PO SCH (09:05)
[2017-08-04] MEDS: SENNA 8.6 MG TAB PO SCH (09:05)
[2017-08-04] MEDS: RANOLAZINE 500 MG ER TAB PO SCH ×2 (09:05→21:41)
[2017-08-04] MEDS: ALPRAZOLAM 0.5 MG TAB PO SCH ×3 (09:10→21:41)
[2017-08-04] MEDS: INSULIN ASPART 100 UNITS/ML 3 ML PEN SC SCH ×4 (09:17→21:00)
[2017-08-04] MEDS: INSULIN GLARGINE SOLOSTAR 100 UNITS/ML 3 ML PEN SC SCH (09:51)
--- NOTE | 2017-08-04 11:39 | Orthopedic Progress Note ---
Orthopedic Progress Note Date of Service Aug 04, 2017. Subjective Post OP Day: 3 Reports: feeling well, pain controlled w PO medications, using FIRE EXTINGUISHER SPRINKLER INSPECTOR, Denies: chest pain, SOB, nausea / vomiting, light headedness Objective incision C/D/I, A&O x3 no drainage, no erythema noted. skin edges well approximated. Date Time Temp Pulse Resp B/P (MAP) Pulse Ox O2 Delivery O2 Flow Rate FiO2 08/04/17 09:12 77 154/80 (104) 08/04/17 07:21 37.1 73 15 148/75 (99) 95 Room Air 08/04/17 07:20 Room Air 08/04/17 03:23 37.4 74 18 146/77 (100) 96 Room Air 08/04/17 00:00 Room Air 08/03/17 23:10 36.9 81 18 143/81 (101) 94 Room Air 08/03/17 21:25 77 150/79 (102) 08/03/17 18:30 37.2 77 18 126/65 (85) 95 Room Air 08/03/17 18:30 Room Air 08/03/17 18:14 37.3 75 22 97 2.0 08/03/17 16:00 Room Air 08/03/17 15:16 37.3 75 22 141/80 (100) 97 Room Air 08/03/17 12:00 Room Air Laboratory Results 24 Hours: Test 08/04/17 05:33 Hematocrit 26.8 % Hemoglobin 9.1 g/dL Assessment & Plan Assessment: POD#3 SP I&D LEFT BKA SITE Plan: PAIN MANAGEMENT- Currently on FIRE EXTINGUISHER SPRINKLER INSPECTOR for pain control. FOLLOW CULTURES- Staph Aureus noted on 2 cx's. MSSA (one with R to Erythromycin) Antibx as per Med/ID Teams APPRECIATE ID INPUT, WILL FOLLOW RECOMMENDATIONS. continue with daily dressing changes, incision clean and dry. will sign off orthopedically, f/u with dr baker @ [facility] [place] office in 10-14 days. (1) Cellulitis Acute (2) Wound dehiscence, surgical
[2017-08-04] MEDS: NSS + 20MEQ KCL 1000ML 1,000 ML IV SCH (11:42)
--- NOTE | 2017-08-04 13:37 | Hospitalist Progress Note ---
Hospitalist Progress Note Date of Service Aug 04, 2017. (Ana Kauffman PA-C) Subjective Pt evaluation today including: conversation w/ patient, physical exam, chart review, lab review, review of studies Pain: Minimal Left stump PO Intake: Fair Voiding: no voiding problems The patient was seen and examined this afternoon. She is doing well and her pain is well controlled on dilaudid pool player. She cannot tell me exactly how much she has needed to push the button today, but reports less than yesterday. She only has pain with movement to the bedside commode and lots of exertion. Discussion held with pt regarding switch of antibiotics to ceftriaxone per ID. She plans to have home health services at time of dc. Constitutional: No fever, No chills, No sweats Eyes: No redness, No diplopia ENT: No nasal symptoms, No trouble swallowing Respiratory: No cough, No shortness of breath Cardiovascular: No chest pain Abdomen: No pain, No nausea, No vomiting, No diarrhea, No constipation Musculoskeletal: No joint pain, No swelling Female : No dysuria Endo: No fatigue Skin: No rash, No itch (Ana Kauffman PA-C) Objective Vital Signs Date Time Temp Pulse Resp B/P (MAP) Pulse Ox O2 Delivery O2 Flow Rate FiO2 08/04/17 12:00 37.4 76 18 162/81 (108) 94 Room Air 08/04/17 09:12 77 154/80 (104) 08/04/17 07:21 37.1 73 15 148/75 (99) 95 Room Air 08/04/17 07:20 Room Air 08/04/17 03:23 37.4 74 18 146/77 (100) 96 Room Air 08/04/17 00:00 Room Air 08/03/17 23:10 36.9 81 18 143/81 (101) 94 Room Air 08/03/17 21:25 77 150/79 (102) 08/03/17 18:30 37.2 77 18 126/65 (85) 95 Room Air 08/03/17 18:30 Room Air 08/03/17 18:14 37.3 75 22 97 2.0 08/03/17 16:00 Room Air 08/03/17 15:16 37.3 75 22 141/80 (100) 97 Room Air (Ana Kauffman PA-C) Physical Exam General Appearance: WD/WN, no apparent distress Eyes: PERRL, EOMI ENT: hearing grossly normal, pharynx normal Neck: supple, no JVD Respiratory/Chest: lungs clear, no respiratory distress, no accessory muscle use Cardiovascular: regular rate, rhythm, no edema, no murmur Abdomen: normal bowel sounds, non tender, soft Extremities: + pertinent finding (Bilateral BKA. Left stump dressing is c/d/i , no drainage. No surrounding erythema, non painful with palpation.) Neurologic/Psychiatric: alert, normal mood/affect, oriented x 3 Skin: normal color, warm/dry (Ana Kauffman PA-C) Laboratory Results Last 24 Hours Test 08/03/17 16:01 08/03/17 20:34 08/04/17 05:33 08/04/17 07:46 Bedside Glucose 97 mg/dl 125 mg/dl 154 mg/dl White Blood Count 7.71 K/uL Red Blood Count 3.14 M/uL Hemoglobin 9.1 g/dL Hematocrit 26.8 % Mean Corpuscular Volume 85.4 fL Mean Corpuscular Hemoglobin 29.0 pg Mean Corpuscular Hemoglobin Concent 34.0 g/dl RDW Standard Deviation 42.7 fL RDW Coefficient of Variation 13.6 % Platelet Count 269 K/uL Mean Platelet Volume 8.5 fL Sodium Level 140 mmol/L Potassium Level 4.0 mmol/L Chloride Level 108 mmol/L Carbon Dioxide Level 24 mmol/L Anion Gap 8.0 mmol/L Blood Urea Nitrogen 3 mg/dl Creatinine 0.49 mg/dl Est Creatinine Clear Calc Drug Dose 147.7 ml/min Estimated GFR () 132.6 Estimated GFR (Non- 114.4 BUN/Creatinine Ratio 5.8 Random Glucose 53 mg/dl Calcium Level 8.3 mg/dl Test 08/04/17 11:59 Bedside Glucose 116 mg/dl (Ana Kauffman PA-C) Assessment and Plan 51 yo F Sepsis 2nd to left BKA stump infection due to MSSA - improving. - POD #3, s/p I/D by Dr. Ramos with debridement along with revision of BKA and placement of antibiotic beads. - Cultures and periosteum biopsy with MSSA. - Switch abx to rocephin 2g daily x minimum 4 weeks per ID. will need weekly cbc , cmp, esr while on abx. - BCx NGTD - pain better controlled with VEN[employer]IAN BLIND INSTALLER dilaudid with 0.2mg demand doses, without basal in past 24 hours - will plan to transition off to RAT TRAPPER meds of hydrocodone 10 mg Q6H and Dilaudid 1 mg IV Q3H prn. - Will need wound follow up as outpatient Hypotension - 2nd to sepsis as above - RESOLVED - Cont NS hydration but decrease rate to 75cc/hr - encourage oral intake. Appetite is fair although pt reports this is normal for her and will take time to improve. Hyponatremia with dehydration - RESOLVED. T1DM - continue home basal-bolus regimen. Lantus 32 U BID along with ISS. Glucose controlled. - Last Hgb A1C= 13.9 in January, will add to blood in lab for recheck. CAD - no ischemic symptoms at this time. EKG 07/31/17 without ischemic changes. Hypothyroidism - TSH wnl; Cont Synthroid 112 mcg daily h/o PE - noted. Acute kidney injury - resolved. PAD s/p BKA status bilaterally - statin, aspirin, etc. Acute blood loss anemia - Hgb stable at 9; started ferrous sulfate 325mg BID on 08/03. DVT ppx: heparin TID subq CODE STATUS: FULL CODE Disposition: From home, likely discharge within 1 day with home health services. (Ana Kauffman, ADOLFO) Attending Attestation: Pt seen/examined, chart reviewed, and care plan d/w JESSE Kauffman. I agree w/ the dunbar components of her documentation. pt's pain largely controlled with minimal amounts of VENETIAN BLIND INSTALLER dilaudid. no dyspnea no other complaints VSS afebrile gen - nad, no change heart - RRR lungs - mild dry rales bases abd - soft, NT ext - left BKA/stump in large INDY BMP wnl FSBS acceptable although glucose on BMP this am was low A/P: MSSA infection of left BKA stump, s/p revision, abx beads, I/D plan - 4 weeks of IV rocephin via port T1DM - control acceptable pain - d/c VEN[employer]IAN BLIND INSTALLER dilaudid, transition to po oxycodone prn Garfield Connell MD (Garfield Connell MD)
[2017-08-04] MEDS ORDERED: NURSING VERBAL MED ORDER ONE (15:00)
[2017-08-04] MEDS: HYDROCODONE/ACETAMI 10/325 TAB PO PRN (20:11)
[2017-08-04] MEDS: CEFTRIAXONE SOD INJ 2,000 MG in DEXTROSE 5% 50ML 50 ML IV SCH (20:13)
[2017-08-04] MEDS ORDERED: INSULIN GLARGINE SOLOSTAR 100 UNITS/ML 3 ML PEN SC SCH (21:45)
[2017-08-04] MEDS: HYDROmorphone INJ 0.5 MG/0.5 ML SYR IV PRN (23:38)
[2017-08-05] MEDS: OXYCODONE HCL IR 5 MG TAB (IMMEDIATE RELEASE) PO PRN (01:28)
[2017-08-05] MEDS: ONDANSETRON INJ 2 MG/ML 2 ML VIAL IV PRN (03:31)
[2017-08-05] MEDS: HYDROmorphone INJ 1 MG/ML SYR IV PRN ×2 (03:32→08:22)
[2017-08-05] MEDS: LEVOTHYROXINE 112 MCG TAB PO SCH (05:55)
[2017-08-05] MEDS: HEPARIN SOD 5000 UNIT/0.5 ML CARP SQ SCH ×2 (06:02→13:55)
[2017-08-05 06:38] LABS: BUN/CREATININE RATIO 1.9 (10-20); CALCIUM 8.3 mg/dl (8.5-10.1); CREATININE 0.59 mg/dl (0.60-1.20); POTASSIUM 4.1 mmol/L (3.5-5.1)
[2017-08-05 07:45] VITALS: BP 144/75; PULSE 70; TEMP 37; O2SAT 95
[2017-08-05] MEDS: FERROUS SULFATE 325 MG TAB PO SCH (08:25)
[2017-08-05] MEDS: LACTOBACILLUS ACIDOPHILUS (FLORANEX) TAB PO SCH ×2 (08:26→13:45)
[2017-08-05] MEDS: ISOSORBIDE MONONITRATE 60 MG TABCR PO SCH (08:27)
[2017-08-05] MEDS: ASPIRIN 81 MG ECTAB PO SCH (08:27)
[2017-08-05] MEDS: POLYETHYLENE (MIRALAX) 17 GM PACK PO SCH (08:28)
[2017-08-05] MEDS: POTASSIUM CHLORIDE 20 MEQ TABCR PO SCH (08:28)
[2017-08-05] MEDS: RANOLAZINE 500 MG ER TAB PO SCH (08:28)
[2017-08-05] MEDS: SENNA 8.6 MG TAB PO SCH (08:29)
[2017-08-05] MEDS: CHOLECALCIFEROL 1000 INTER.UNIT TAB PO SCH (08:29)
[2017-08-05] MEDS: ALPRAZOLAM 0.5 MG TAB PO SCH ×2 (08:34→13:45)
--- NOTE | 2017-08-05 08:38 | Discharge Instructions ---
Discharge Instructions Date of Service Aug 05, 2017. Admission Reason for Admission: Osteomyelitis, Peripheral Vascular Complications Discharge Discharge Diagnosis / Problem: Sepsis from L BKA stump infection Discharge Goals Goal(s): Decrease discomfort, Improve function, Increase independence, Improve disease control Activity Recommendations Activity Limitations: per Instructions/Follow-up section Lifting Limitations: no more than 25 pounds, gradually increase as tolerated Exercise/Sports Limitations: rest today, gradually increase as tolerated May Resume Sexual Activity: when tolerated Shower/Bathe: no limitations (with assistance) Driving or Machine Use: Do Not Drive . Instructions / Follow-Up Instructions / Follow-Up You were admitted to [facility] with sepsis and diagnosed with sepsis secondary to staph aureus infection of the left stump infection. - You were evaluated by orthopedic services and underwent debridement along with revision of BKA and placement of antibiotic beads by Dr. Ramos on 08/01/17 - During your stay here you were treated with intravenous antibiotics and other supportive care. You should continue Ceftriaxone 2 g IV infusions as your antibiotic therapy for a minimum of 4 weeks with home health services. Weekly blood work x 4 weeks including CBC, CMP, and ESR will need to be drawn by home health services, with results faxed to your PCP and Infectious disease. If you have to get the antibiotic for more than 4 weeks you will need a new prescription. Dressing of the wound will be done by orthopedics. Medications: You have been given a 5 day supply of oxycodone 5 mg tablets to take for breakthrough pain along with your normally scheduled pain medication. Continue taking your medications as above, and others as prescribed Appointments: Follow up with your Primary Care Provider within 1 week. Follow up with Infectious disease within 2 weeks. Follow up with orthopedics within 1-2 weeks. Current Hospital Diet Patient's current hospital diet: AHA Diet (Heart Healthy), Diabetes Type 1 Diet Discharge Diet Recommended Diet: AHA Diet (Heart Healthy), Diabetes Type 1 Diet Procedures Procedures Performed: Revision of Left Below Knee Amputation with implantation of antibiotic Stimulan Beads, Left Lower Extremity Irrigation and Debridement of Abcess Pending Studies Studies pending at discharge: no Laboratory Results Hemoglobin A1c Test 08/04/17 05:33 Range/Units Estimated Average Glucose 349 mg/dl Hemoglobin A1c 13.8 H 4.5-5.6 % Medical Emergencies . Who to Call and When: Medical Emergencies: If at any time you feel your situation is an emergency, please call 911 immediately. . Non-Emergent Contact Non-Emergency issues call your: Primary Care Provider Call Non-Emergent contact if: you have a fever, temperature is above 101.5, your pain is not controlled, your pain is worsening, you have any medication questions other concerns with your health. Call 911 or go directly to the Emergency Department if you experience any of the following: Chest pain, chest tightness, shortness of breath, abdominal pain , lightheadedness, dizziness, gastrointestinal bleeding, or have any other concerns regarding your health. . Past History Medical & Surgical History: (1) Sepsis (2) BKA stump complication (3) Peripheral vascular complications (4) Diabetes mellitus type 1 (5) HTN (hypertension) . "Provider Documentation" section prepared by Gloria Kauffman. Attending Attestation: Pt seen/examined and discharge care plan d/w JESSE Kauffman. I agree w/ the dunbar components of her discharge instructions. Garfield Connell MD . VTE Core Measure Inpt VTE Proph given/why not?: Unfractionated heparin SQ [place] Drug Monitoring Program Search Results: patient reviewed within database, no issues identified
[2017-08-05] MEDS: INSULIN ASPART 100 UNITS/ML 3 ML PEN SC SCH ×2 (08:59→13:08)
[2017-08-05] MEDS ORDERED: NURSING VERBAL MED ORDER ONE (09:45)
[2017-08-05] MEDS ORDERED: FRRS300 PO (09:48)
[2017-08-05] MEDS ORDERED: RXC5 PO (09:48)
[2017-08-05] MEDS ORDERED: INSULIN GLARGINE SOLOSTAR 100 UNITS/ML 3 ML PEN SC ONE (10:00)
[2017-08-05 10:42] VITALS: BP 144/75; PULSE 70; TEMP 37; O2SAT 95
[2017-08-05 11:04] VITALS: BP 137/71; PULSE 74; TEMP 37.5; O2SAT 96
[2017-08-05 13:40] VITALS: Ht 162.6 cm; Wt 86.4 kg
[2017-08-05] MEDS: HYDROCODONE/ACETAMI 10/325 TAB PO PRN (13:46)
--- NOTE | 2017-08-05 15:49 | Discharge Summary ---
Discharge Summary Date of Service Aug 05, 2017. (Ana Kauffman PA-C) Discharge Summary Admission Date: Jul 30, 2017 at 21:53 Discharge Date: Aug 05, 2017 Discharge Disposition: Home with services Principal Diagnosis: Sepsis secondary to L BKA stump MSSA s/p revision Problems/Secondary Diagnoses: Sepsis 2nd to left BKA stump infection due to MSSA Hypotension CAD DM Type 1 Hypothyroidism h/o PE Acute kidney injury - resolved. PAD s/p BKA status bilaterally Acute blood loss anemia Immunizations: Have You Had Influenza Vaccine: Unknown History of Tetanus Vaccine?: Unknown History of Pneumococcal: Unknown History of Hepatitis B Vaccine: Unknown Procedures: L TIBIA/FIBULA 2 VIEWS ROUTINE HISTORY: 51 years-old Female concern for infectious process; prior BKA, TTP, warm, red acute fever with redness and swelling of the left lower extremity COMPARISON: None available TECHNIQUE: 2 views of the left tibia and fibula. FINDINGS: The bones are moderately demineralized. Prior [id number]-ddk-ldub amputation at the level of the proximal diaphyseal portion tibia and fibula. There is moderate soft tissue swelling about the amputation stump. Vascular calcifications are noted. There is ill-defined cortical lucency and irregularity noted at the distal tibia at the amputation site, best seen on the frontal view. There is suggestion of a lucent wound tract within this distribution seen on the lateral projection. No acute fracture or dislocation. IMPRESSION: 1. Prior tpepz-cdu-phol amputation at the level of the proximal diaphyseal tibia and fibula. 2. Moderate soft tissue swelling with apparent wound track at the amputation stump is noted in addition to cortical irregularity and lucency of the adjacent distal tibia, suspicious for osteomyelitis. 3. Peripheral vascular disease. The above report was generated using voice recognition software. It may contain grammatical, syntax or spelling errors. Electronically signed by: Victor Hugo Rodriguez M.D. 07/30/2017 8:59 PM Dictated Date/Time: 07/30/2017 8:56 PM The status of this report is Signed. CHEST ONE VIEW PORTABLE HISTORY: 51 years-old Female febrile acute fever. COMPARISON: Chest radiograph 09/07/2015 TECHNIQUE: Portable upright AP view of the chest FINDINGS: Cardiomediastinal and hilar silhouettes are within normal limits. Right internal jugular Ctrbbu-a-Umdg catheter is again seen with distal tip in the region of the mid SVC. There is no pneumothorax, pleural effusion, focal airspace consolidation or overt pulmonary edema. The bones are grossly intact. IMPRESSION: No acute cardiopulmonary process. The above report was generated using voice recognition software. It may contain grammatical, syntax or spelling errors. Electronically signed by: Victor Hugo Rodriguez M.D. 07/30/2017 8:56 PM Dictated Date/Time: 07/30/2017 8:55 PM The status of this report is Signed. L LOWER EXTREMITY WITHOUT CLINICAL HISTORY: 51 years-old Female presenting with eval for drainable abscess, left BKA. TECHNIQUE: Multidetector CT of the left knee was performed without the use of intravenous contrast. IV contrast: None. A dose lowering technique was used consistent with the principles of ALARA (as low as reasonably achievable). COMPARISON: Plain radiographs of the left lower extremity from 07/30/2017. CT DOSE (mGy.cm): The estimated cumulative dose is 246.33 mGy.cm. FINDINGS: Desktop Support Specialist topogram: Bilateral below the knee amputations. Soft tissue emphysema in the anterior compartment adjacent to the lateral cortex of the tibia. Soft tissue emphysema continues inferiorly to the stump. No associated fluid collection. Extensive subcutaneous and interfascial fat infiltration consistent with edema. Atherosclerosis. Skin thickening. No knee joint effusion. No acute fracture. No evidence of periosteal reaction or osseous erosion. IMPRESSION: No drainable fluid collection. However, soft tissue emphysema in the anterior compartment compartment along the tibia could raise concern for soft tissue infection. Necrotizing fasciitis not excluded. Correlate clinically. Findings could also suggest cellulitis versus extensive edema. The report will be called/faxed according to standard departmental protocol. Electronically signed by: Rohit Krueger M.D. 07/31/2017 7:44 PM Dictated Date/Time: 07/31/2017 7:36 PM The status of this report is Signed. Consultations: Orthopedics Infectious disease (Ana Kauffman PA-C) Problems/Secondary Diagnoses: hyponatremia - resolved osteomyelitis of the left tibia (Garfield Connell MD) Medication Reconciliation New Medications: Oxycodone HCl (Oxycodone HCl) 5 Mg Tab 5 MG PO Q6H PRN for Pain for 5 Days, #20 TAB Ferrous Sulfate (Ferrous Sulfate) 325 Mg Tab 325 MG PO BIDM for 30 Days, #60 TAB Continued Medications: Alprazolam (Xanax) 1 Mg Tab 1 MG PO TID, TAB Aspirin (Aspirin Ec) 81 Mg Tab 81 MG PO QAM Cholecalciferol (Vitamin D) 2,000 Unit Cap 1 CAP PO DAILY, #30 TAB Famotidine (Pepcid) 20 Mg Tab 20 MG PO HS PRN for Heartburn, TAB PT INTERCHANGES WITH ZANTAC AND PRILOSEC Insulin Glargine (Toujeo Solostar) 300 Unit/Ml Inj 32 UNITS SC BID PATIENT REPORTS TAKES 10 AM & 10 PM Isosorbide Mononitrate Ext Rel (Imdur Ext Rel) 60 Mg Ertab 60 MG PO BID, TAB Levothyroxine Sodium (Synthroid) 112 Mcg Tab 112 MCG PO QAM, TAB Lisinopril (Lisinopril) 40 Mg Tab 40 MG PO HS Oxycodone Hcl (Oxycodone Hcl) 10 Mg Tab 10 MG PO Q6 PRN for Pain, #120 Promethazine HCl (Promethazine HCl) 25 Mg Tab 25 MG PO Q6 PRN for Nausea or Vomiting, #120 Ranolazine (Ranexa) 1,000 Mg Tab 1000 MG PO BID Sennosides-Docusate Sodium (Stool Softener) 1 Tab Tab 2 TAB PO HS PRN for Constipation Sulfa/Trimethoprim (Bactrim Ds 800MG/160MG) Tab 1 TAB PO BID, #6 TAB [Tresiba] () 42 UNITS SQ BID Discharge Exam The patient was seen and examined this morning. Pt reports doing better today. She required extra dose of pain medication with IV dilaudid overnight. 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 She denies any fever, chills or sweats. She did not eat breakfast this morning due to no appetite, but assures me her appetite is better at home. Bowels are moving regularly, and urinating without difficulty. Pt denies any depressive symptoms and states she does not want antidepressant after long discussion regarding depressed features. Pt denies needs for counseling. She was encouraged to seek out options from her PCP if she feels she needs to in the future. ROS: Constitutional: No fever, No chills, No sweats Eyes: No redness, No diplopia ENT: No nasal symptoms, No trouble swallowing Respiratory: No cough, No shortness of breath Cardiovascular: No chest pain Abdomen: No pain, No nausea, No vomiting, No diarrhea, No constipation Musculoskeletal: No joint pain, No swelling Female : No dysuria Endo: No fatigue Skin: No rash, No itch PE: General Appearance: WD/WN, no apparent distress Eyes: PERRL, EOMI ENT: hearing grossly normal, pharynx normal Neck: supple, no JVD Respiratory/Chest: lungs clear, no respiratory distress, no accessory muscle use Cardiovascular: regular rate, rhythm, no edema, no murmur Abdomen: normal bowel sounds, non tender, soft Extremities: + pertinent finding (Bilateral BKA. Left stump incision edges are everted with sutures in place, +slight serosanginous drainage from medial side. No erythema, minimal edema, no warmth, non painful with palpation.) Neurologic/Psychiatric: alert, normal mood/affect, oriented x 3 Skin: normal color, warm/dry (Ana Kauffman, ADOLFO) Hospital Course History of Present Illness Source: patient 51 y/o F Hx PAD, DM, CAD, PE, hypothyroid, B/L BKA. Pt has a nonhealing wound of her distal LLE. She has had redness, increasing pain, fevers and rigors over the past 4 days. She states that her temp was 102 one night prior. MRI was obtained revealing likely osteomyelitis. She was directed to the ER therefore. She had been taking Bactrim as an outpt. The pt had a L BKA 09/16 and was admitted with wound dehiscence requiring additional surgery 02/15. She maintains a vascular access port in her L chest. Physical Exam Vital Signs Date Time Temp Pulse Resp B/P (MAP) Pulse Ox O2 Delivery O2 Flow Rate FiO2 07/30/17 21:13 92 20 152/88 98 Room Air 07/30/17 18:32 37.3 89 16 149/84 97 Room Air General Appearance: WD/WN, no apparent distress Head: normocephalic Eyes: normal inspection ENT: normal ENT inspection, pharynx normal Neck: supple, no JVD Respiratory/Chest: chest non-tender, lungs clear Cardiovascular: regular rate, rhythm, no edema, no gallop, + pertinent finding (Port in L chest - no induration) Abdomen/GI: normal bowel sounds, non tender, soft Back: normal inspection, no CVA tenderness, no muscle spasm Extremities/Musculoskelatal: + pertinent finding (Erythema LLE - B/L BKA) Neurologic/Psych: tire layer II-XII nml as tested, no motor/sensory deficits, alert, normal mood/affect, normal reflexes, oriented x 3 Skin: + pertinent finding (Inflammation, erythema, warmth, pain LLE - 6cm shallow wound ) Hospital Course: 51 yo F Sepsis 2nd to left BKA stump infection due to MSSA - improving. - POD #4, s/p I/D by Dr. Ramso with debridement along with revision of BKA and placement of antibiotic beads. - Cultures and periosteum biopsy with MSSA. - Cont rocephin 2g daily x minimum 4 weeks per ID. will need weekly cbc, cmp, esr while on abx - Rx provided for 4 weeks. If further antibiotics needed pt will need a new script. - BCx 07/30 NGTD - pain better controlled with COMPOSING MACHINE OPERATOR/TENDER dilaudid with 0.2mg demand doses while inpatient and titrated down to oral meds- pt given prescription for oxycodone 5 mg tabs to use in conjunction with oxycodone 10 mg at home prior to sleep or with severe pain. - Wound follow up with orthopedics as an outpatient Hypotension - 2nd to sepsis as above - RESOLVED - Cont NS hydration but decrease rate to 75cc/hr - encourage oral intake. Appetite is fair although pt reports this is normal for her and will take time to improve. Hyponatremia with dehydration - RESOLVED. T1DM - continue home basal-bolus regimen. Lantus 32 U BID along with ISS. Glucose controlled. - Last Hgb A1C= 13.9 in January, will add to blood in lab for recheck. CAD - no ischemic symptoms at this time. EKG 07/31/17 without ischemic changes. Hypothyroidism - TSH wnl; Cont Synthroid 112 mcg daily h/o PE - noted. Acute kidney injury - resolved. PAD s/p BKA status bilaterally - statin, aspirin, etc. Acute blood loss anemia - Hgb stable at 9; started ferrous sulfate 325mg BID on 08/03. DVT ppx: heparin TID subq CODE STATUS: FULL CODE Disposition: From home, discharge home today with health services. Total Time Spent: Greater than 30 minutes This includes examination of the patient, discharge planning, medication reconciliation, and communication with other providers. (Ana Kauffman PA-C) Attending Attestation & Discharge Note: Pt seen/examined, chart reviewed, care plan d/w PA Gloria Kauffman. I agree w/ the dunbar components of her discharge summary documentation. 51yo female with long-standing T1DM and prior b/l BKA with recurrent stump infections on the left - followed by Dr. Harvey Ramos of [facility] - who presented with sepsis due to another episode of stump infection on the left. She had evidence of osteomyelitis of the left distal tibia on imaging. She was taken to the OR by Dr. Ramos who performed I/D, placement of antibiotic beads, debridement, and revision of the BKA. Post-operatively she did well with normalization of her WBC count, resolution of her fever, and improved swelling/pain of the left leg stump. She was seen in consult by infectious disease who recommended a minimum of 4 weeks of IV antibiotic therapy. Intra-op cultures including periosteum culture grew methicillin-sensitive staph aureus (MSSA). Thus, once daily rocephin 2 grams via her Port will be given at her home. Follow-up with her PCP, Dr. Ramos, and Dr. Steele have been arranged. She was instructed to perform daily dressing changes on her left leg stump. Discharge exam: gen - NAD, flat affect mouth - MMM, no thrush neck - no JVD heart - RRR, s1, s2, no murmur lungs - mild dry rales bases, o/w CTA b/l abd - soft, NT, ND, BS+ chest - port clean ext - b/l BKA skin - left leg BKA incision - clean, scant drainage, no redness, minimal warmth ; previous swelling of the left anterior tibial region markedly reduced in comparison to previous exams; sutures intact on incision All other medical problems remained stable while hospitalized. Blood cultures remained negative while here. Garfield Connell MD (Garfield Connell MD) Discharge Instructions Please refer to the electronic Patient Visit Report (Discharge Instructions) for additional information. (Ana Kauffman PA-C) Follow-Up Follow up with your Primary Care Provider within 1 week. Follow up with Infectious disease within 2 weeks. Follow up with orthopedics within 1-2 weeks. (Ana Kauffman PA-C) 1. Dr. Ramos on WednesdayAugust 11 at 11:[address] Montiel on August 12 at 11:[address] Steele (infectious disease) on WednesdayAugust 17 at 12:00 IN THE [place] [facility] (Garfield Connell MD) Additional Copies To Dom Ramos D.O.; Charles Montiel M.D.; Jennifer. Steele D.O.
[2017-08-05] MEDS: CEFTRIAXONE SOD INJ 2,000 MG in DEXTROSE 5% 50ML 50 ML IV SCH (16:08)
== END 2017-08-05 17:55 | disposition home health service (06) | DRG 492 ==
LOC: C.EDB 18:31 → C.MS4W 21:53 → ENRESERV 21:58 → CANRESERV 07-31 17:35 → ENRESERV 07-31 18:04 → C.2E 07-31 18:55 → ENRESERV 08-03 17:48 → C.MSW 08-03 18:46
PROVIDERS: ADMIT Internal Medicine; ATTEND Internal Medicine
PROC: 0JBP0ZX Excision of Left Lower Leg Subcutaneous Tissue and Fascia, Open Approach, Diagnostic (ICD-10-PCS; principal; 2017-08-03)
PROC: 0QBH0ZZ Excision of Left Tibia, Open Approach (ICD-10-PCS; principal; 2017-08-03)
PROC: 3E0V329 Introduction of Other Anti-infective into Bones, Percutaneous Approach (ICD-10-PCS; principal; 2017-08-03)
DX: T87.44 Infection of amputation stump, left lower extremity (principal); A41.9 Sepsis, unspecified organism; M86.9 Osteomyelitis, unspecified; L03.116 Cellulitis of left lower limb; L02.416 Cutaneous abscess of left lower limb; N17.9 Acute kidney failure, unspecified; D62 Acute posthemorrhagic anemia; T87.81 Dehiscence of amputation stump; B95.61 Methicillin susceptible Staphylococcus aureus infection as the cause of diseases classified elsewhere; E10.69 Type 1 diabetes mellitus with other specified complication; E03.9 Hypothyroidism, unspecified; I10 Essential (primary) hypertension; I73.9 Peripheral vascular disease, unspecified; I25.10 Atherosclerotic heart disease of native coronary artery without angina pectoris; Z79.899 Other long term (current) drug therapy; Z79.82 Long term (current) use of aspirin; Z89.512 Acquired absence of left leg below knee; Z89.511 Acquired absence of right leg below knee; Z95.5 Presence of coronary angioplasty implant and graft; Z86.711 Personal history of pulmonary embolism; Z83.3 Family history of diabetes mellitus; Y83.5 Amputation of limb(s) as the cause of abnormal reaction of the patient, or of later complication, without mention of misadventure at the time of the procedure

== ENCOUNTER 2017-08-26 16:13 | Inpatient (IN) | payer OTHER ==
[~2017-08-26] VITALS: Ht 162.6 cm; Wt 84.6 kg
[~2017-08-26 16:13] MED LIST changes: -CEFT1INJ26 IV; +FRRS300 PO; +LSN40 PO; -ONDA4TAB46 PO; +RXC5 PO; +SULF800T23 PO; +TRESIBA SQ
[2017-08-26 17:55] VITALS: BP 156/76; PULSE 92; TEMP 37.6; Ht 162.6 cm; Wt 84.6 kg
[2017-08-26 18:00] VITALS: O2SAT 94
[2017-08-26] MEDS ORDERED: MORP-158 PO (18:36)
[2017-08-26] MEDS ORDERED: DiphenhydrAMINE HCL 50 MG/ML VIAL IV PRN (19:00)
[2017-08-26] MEDS ORDERED: ACETAMINOPHEN 325 MG TAB PO PRN (19:00)
[2017-08-26] MEDS ORDERED: OXYCODONE HCL IR 5 MG TAB (IMMEDIATE RELEASE) PO PRN (19:15)
[2017-08-26] MEDS ORDERED: FAMOTIDINE 20 MG TAB PO PRN (19:15)
[2017-08-26] MEDS ORDERED: DOCUSATE SODIUM/SENNA 50/8.6MG TAB PO PRN (19:15)
[2017-08-26] MEDS ORDERED: INSULIN IV INFUSION PROTOCOL SCH (19:35)
[2017-08-26] MEDS ORDERED: INSULIN IV INFUSION PROTOCOL STA (19:35)
[2017-08-26 19:37] LABS: HEMATOCRIT 35.2 % (37-47); MEAN CELL VOLUME 86.3 fL (80-100); MEAN CORPUSCULAR HEMOGLOBIN 28.7 pg (25-34); MEAN CORPUSCULAR HGB CONC 33.2 g/dl (32-36); PLATELET COUNT 220 K/uL (130-400); RED BLOOD COUNT 4.08 M/uL (4.2-5.4); WHITE BLOOD COUNT 10.96 K/uL (4.8-10.8)
[2017-08-26 19:51] LABS: INR 1.1 (0.9-1.1); PROTHROMBIN TIME (PATIENT) 11.4 SECONDS (9.0-12.0)
[2017-08-26 19:58] LABS: BUN/CREATININE RATIO 20.1 (10-20); CALCIUM 8.7 mg/dl (8.5-10.1); CREATININE 0.78 mg/dl (0.60-1.20); POTASSIUM 3.6 mmol/L (3.5-5.1)
[2017-08-26 20:00] LABS: ALB/GLOB RATIO 0.8 (0.9-2)
[2017-08-26] MEDS ORDERED: PHARMACY GLYCEMIC MGMT CONSULT PRN ×2 (20:01→20:15)
[2017-08-26] MEDS: OXYCODONE HCL IR 5 MG TAB (IMMEDIATE RELEASE) PO PRN (20:07)
--- NOTE | 2017-08-26 20:30 | Medical Consult ---
Consultation Date of Consultation: Aug 26, 2017. Attending Physician: Dom Ramos D.O. History of Present Illness This is a 51 y/o F with b/l BKA, HTN, T1DM, hypothyroidism, CAD who presents with fevers, chills and left stump pain/swelling. She has a history of recurrent stump infections and was most recently in the hospital for the same earlier this month. She has a port through which she receives Rocephin 2 gm daily. She had discussions with orthopedics to have debridement and potentially AKA if there is no resolution of recurrent infection. Past Medical/Surgical History Medical Problems: (1) Hematoma Status: Acute (2) Leg swelling Status: Acute (3) Osteomyelitis Status: Acute Family History Diabetes mellitus Social History Smoking Status: Never Smoker Drug Use: none Marital Status: Housing Status: lives with family Occupation Status: disabled Allergies Coded Allergies: Butorphanol (Verified Allergy, Severe, SHORTNESS OF BREATH, 03/01/17) Spironolactone (Verified Allergy, Mild, RASH, 03/01/17) Atorvastatin (Verified Allergy, Unknown, RASH, 03/01/17) Fenofibrate (Verified Allergy, Unknown, RASH, 03/01/17) Vancomycin (Verified Adverse Reaction, Mild, RASH-DEVYN SYNDROME, 03/01/17) red man syndrome Current Inpatient Medications Current Inpatient Medications Medications (Trade) Dose Ordered Sig/Ochoa Route Start Time Stop Time Status Last Admin Dose Admin Acetaminophen (Tylenol Tab) 650 mg Q6H PRN PO 08/26/17 19:00 09/25/17 18:59 Diphenhydramine HCl (Benadryl Inj) 25 mg Q8 PRN IV 08/26/17 19:00 09/25/17 18:59 Ondansetron HCl (Zofran Inj) 4 mg Q6H PRN IV 08/26/17 19:00 09/25/17 18:59 Alprazolam (Xanax Tab) 1 mg TID PO 08/26/17 21:00 09/25/17 20:59 Famotidine (Pepcid Tab) 20 mg HS PRN PO 08/26/17 19:15 09/25/17 19:14 Ferrous Sulfate (Feosol Tab) 325 mg BIDM PO 08/27/17 08:30 09/26/17 08:29 Isosorbide Mononitrate (Imdur Ext Rel Tab) 60 mg BID PO 08/26/17 21:00 09/25/17 20:59 Levothyroxine Sodium (Synthroid Tab) 112 mcg DAILYBB PO 08/27/17 06:00 09/26/17 05:59 Lisinopril (Zestril Tab) 40 mg HS PO 08/26/17 21:00 09/25/17 20:59 Promethazine HCl (Phenergan Tab) 25 mg Q6 PRN PO 08/26/17 19:15 09/25/17 19:14 Senna/Docusate Sodium (Senokot S Tab) 2 tab HS PRN PO 08/26/17 19:15 09/25/17 19:14 Cholecalciferol (Vitamin D Tab) 1,000 inter.unit DAILY PO 08/27/17 09:00 09/26/17 08:59 Non-Formulary Medication (Insulin Glargine (Toujeo Solostar)) 32 units BID SC 08/26/17 21:00 09/25/17 20:59 UNV Morphine Sulfate (Oramorph Sr Tab) 30 mg Q12 PO 08/26/17 21:00 09/09/17 20:59 Ranolazine (Ranexa ER Tab) 1,000 mg BID PO 08/26/17 21:00 09/25/17 20:59 Non-Formulary Medication ([Tresiba] ) 42 units BID SQ 08/26/17 21:00 09/25/17 20:59 UNV Oxycodone HCl (Roxicodone Immediate Rel Tab) 5 mg Q4 PRN PO 08/26/17 19:15 09/09/17 19:14 Oxycodone HCl (Roxicodone Immediate Rel Tab) 10 mg Q4 PRN PO 08/26/17 19:15 09/09/17 19:14 Insulin Human Regular (Insulin IV Infusion Protocol) 1 ea Q15M N/A 08/26/17 19:35 09/25/17 19:34 Insulin Aspart (novoLOG ASPART) SLIDING SCALE PCHS SC 08/26/17 21:00 09/25/17 20:59 UNV Insulin Human Regular (Insulin IV Infusion Protocol) 1 ea NOW STAT N/A 08/26/17 19:35 08/26/17 19:36 UNV Insulin Aspart (novoLOG ASPART) SLIDING SCALE [facility] 08/26/17 21:00 09/25/17 20:59 UNV Review of Systems Constitutional: + fever, + chills, + sweats, + weakness, + fatigue Respiratory: No cough, No sputum, No wheezing, No shortness of breath, No dyspnea on exertion, No dyspnea at rest Cardiovascular: No chest pain Abdomen: + constipation, No pain, No nausea, No vomiting, No diarrhea Musculoskeletal: + joint pain, + muscle pain, + swelling Genitourinary - Female: No dysuria, No urinary frequency, No urinary urgency Physical Exam Date Time Temp Pulse Resp B/P (MAP) Pulse Ox O2 Delivery O2 Flow Rate FiO2 08/26/17 18:00 94 Room Air 08/26/17 18:00 Room Air 08/26/17 17:55 37.6 92 18 156/76 General Appearance: no apparent distress Eyes: PERRL, EOMI ENT: hearing grossly normal Neck: supple, no JVD Respiratory/Chest: lungs clear, normal breath sounds, no respiratory distress, no accessory muscle use, + pertinent finding (port in place on right anterior chest) Cardiovascular: regular rate, rhythm Abdomen/GI: normal bowel sounds, non tender, soft Extremities/Musculoskelatal: + inflammation, + pedal edema, + pertinent finding (b/l BKA, left stump without any drainage but warm, tender and erythematous at incision sites) Neurologic/Psych: alert, + depressed affect Laboratory Results Last 24 Hours Test 08/26/17 19:28 White Blood Count 10.96 K/uL Red Blood Count 4.08 M/uL Hemoglobin 11.7 g/dL Hematocrit 35.2 % Mean Corpuscular Volume 86.3 fL Mean Corpuscular Hemoglobin 28.7 pg Mean Corpuscular Hemoglobin Concent 33.2 g/dl RDW Standard Deviation 44.7 fL RDW Coefficient of Variation 14.2 % Platelet Count 220 K/uL Mean Platelet Volume 9.0 fL Assessment & Plan 51 yo F w/ b/l BKA Recurrent left stump infection Continue Rocephin- changes per ID ID consulted Blood cultures Pain control surgical care per Ortho T1DM glycemic consult placed by ortho Last Hgb A1C= 13.9 CAD aspirin and plavix no ekg changes at this time Hypothyroidism Cont Synthroid h/o PE DVT proph held - per ortho CODE STATUS: FULL CODE Resident Physician Supervision Note: I was present with Dr. Singh during the history and exam. I discussed the case with the resident and agree with the findings and plan as documented in the note. Any exceptions or clarifications are listed here: 51 y/o F Hx DMI, CAD, PE, L BKA and recurrent distal infection - direct admission from ortho - we are asked top consult for medical management AAO x 3 S1,2 R CTAB NT, ND Redness and swelling of distal L BKA - prev incision site P: Pt is currently on Ceftriaxone - will cont pending ID eval - she does not display systemic symptoms so that she debridement may be needed - AKA is a consideration SS for DM Cont Sythroid and Ranexa Hold Lisinopril if procedure needed Documented By: Fidel Meza
[2017-08-26] MEDS ORDERED: GLUCAGON FOR INJ 1 MG VIAL SQ PRN (21:00)
[2017-08-26] MEDS ORDERED: DEXTROSE 50% 50 ML SYR IV PRN (21:00)
[2017-08-26] MEDS ORDERED: GLUCOSE 40% GEL 15 GM TUBE PO PRN (21:00)
[2017-08-26] MEDS ORDERED: INSULIN GLARGINE SC SCH (21:00)
[2017-08-26] MEDS ORDERED: GLUCOSE 10 TABS/TUBE PO PRN (21:00)
[2017-08-26] MEDS ORDERED: TRESIBA SQ SCH (21:00)
[2017-08-26] MEDS: MoRPHine SULFATE CR 15 MG TAB (MS CONTIN) PO SCH (21:00)
[2017-08-26] MEDS ORDERED: INSULIN ASPART 100 UNITS/ML 3 ML PEN SC SCH ×3 (21:00)
[2017-08-26] MEDS ORDERED: INSULIN GLARGINE SOLOSTAR 100 UNITS/ML 3 ML PEN SC ONE (21:00)
--- NOTE | 2017-08-26 21:17 | Pharmacy Progress Note ---
Glycemic Control Intl Consult Date of Service Aug 26, 2017. Scope Glycemic Pharmacist consulted by Dr Gipson on 08/26/17 for glycemic control and to write orders per [facility] inpatient glycemic control protocol Objective Weight (Kilograms): 81.810 Accuchecks BSG (last 24hrs): Test 08/26/17 19:28 08/26/17 20:22 Random Glucose 297 mg/dl (70-99) Bedside Glucose 298 mg/dl (70-90) Laboratory Data (last 24hrs) Test 08/26/17 19:28 Anion Gap 8.0 mmol/L BUN/Creatinine Ratio 20.1 Blood Urea Nitrogen 16 mg/dl Creatinine 0.78 mg/dl Potassium Level 3.6 mmol/L Sodium Level 131 mmol/L White Blood Count 10.96 K/uL Recent Pertinent Medications Outpatient Anti-diabetic Regimen: * Toujeo 44 units qAM, 22 units qPM * Humalog w/ meals (patient reports only taking this if physician can get samples) * A1c = 13.8 % 08/04/17 Risk Factors for Insulin Resistance: * Infection: BKA * Diet: type 2 diabetes diet ordered, will be NPO after midnight Assessment & Plan ASSESSMENT: * 51 y/o female with type 1 diabetes, well known to the pharmacy glycemic service, and admitted with infection of BKA * Her BSGs are currently elevated and she reportedly has not had any insulin since yesterday AM. Anion gap and bicarb are WNL. * Based on previous admissions, her requirements were ~100 units/day. Will give a little extra tonight and add overnight accuchecks. * She will be NPO tomorrow so will give a scale for tomorrow's basal dose * Will definitely need to take a look at her outpatient regimen before she is discharged PLAN FOR INPATIENT GLYCEMIC CONTROL: * Basal insulin with LANTUS 30 units x 1 this evening, then BID as per a scale ( 20, 25 or 30 units) * Correctional Insulin with NOVOLOG per scale ACHS + 00,04 * Goal Range: Low 120 mg/dL - High 150 mg/dL * Correction Factor: 10 mg/dL/unit * Nutritional / Prandial insulin per carb ratio of 1 unit per 5 grams CHO consumed * Please note that the plan above was derived based on current level of insulin resistance and hospital stress. These recommendations are appropriate for inpatient admission only. Plan of care upon discharge will need to be reassessed to avoid potential outpatient hypo/hyperglycemia. Thank you.
[2017-08-26] MEDS: ALPRAZOLAM 0.5 MG TAB PO SCH (21:19)
[2017-08-26] MEDS: HYDROmorphone INJ 2 MG/ML SYR/VIAL IV PRN (21:20)
[2017-08-26] MEDS: LISINOPRIL 40 MG TAB PO SCH (21:24)
[2017-08-26] MEDS: RANOLAZINE 500 MG ER TAB PO SCH (21:25)
[2017-08-26] MEDS: ISOSORBIDE MONONITRATE 60 MG TABCR PO SCH (21:25)
[2017-08-26] MEDS ORDERED: INSU1.2I SQ (21:29)
[2017-08-26 21:44] LABS: URINE APPEARANCE CLOUDY (CLEAR); URINE COLOR ORANGE; URINE EPITHELIAL CELL AUTO >30 /lpf (0-5); URINE NITRITE POS (NEG); URINE SPECIFIC GRAVITY 1.034 (1.000-1.030); UROBILINOGEN NEG (NEG)
[2017-08-26 21:48] LABS: MANUAL MICROSCOPIC REQUIRED? NO; REVIEW REQ? YES; URINE BILIRUBIN NEG (NEG)
[2017-08-26] MEDS: ONDANSETRON INJ 2 MG/ML 2 ML VIAL IV PRN (22:11)
[2017-08-26 22:56] VITALS: BP 102/65; PULSE 91; TEMP 39; O2SAT 91
--- NOTE | 2017-08-26 23:43 | HISTORY & PHYSICAL EXAMINATION ---
DATE OF ADMISSION: 08/26/2017 CHIEF COMPLAINT: Left below the knee amputation stump pain. HISTORY OF PRESENT ILLNESS: This is a patient who has a history of bilateral below the knee amputations. She has had revisions performed of both the below knee amputation stumps however, the left below knee amputation site has been operated on multiple times because of recurrent infections and recurrent wound dehiscence. She was recently admitted approximately 1 month ago for similar problems; however, the left lower extremity began swelling once again. She has also had a fever and chills. She is being admitted with plans for revision of the below knee amputation and I&D of the left BKA. PAST MEDICAL HISTORY: Hypertension, type 1 diabetes, hypothyroidism, coronary artery disease, history of osteomyelitis which has led to the bilateral BKAs as well as multiple I&Ds of the left BKA. PAST SURGICAL HISTORY: Bilateral BKAs, multiple I&Ds of the left BKA. FAMILY HISTORY: Diabetes mellitus. Otherwise noncontributory. SOCIAL HISTORY: The patient denies tobacco use. She is , lives with her family. ALLERGIES: SPIRONOLACTONE, ATORVASTATIN, FENOFIBRATE, VANCOMYCIN AND BUTORPHANOL. CURRENT HOME MEDICATIONS: Lantus, Coreg, alprazolam, Colace, Ranexa, Tricor, vitamin D, Zofran, Humalog, oxycodone as well as Rocephin. OBJECTIVE PHYSICAL EXAMINATION: GENERAL: The patient is alert and oriented x3. She is in no acute distress; however, she does appear slightly ill. The patient is a well-nourished 51-year-old female. Her affect is appropriate. CARDIOVASCULAR: Heart has a regular rhythm and rate without murmurs. LUNGS: Clear to auscultation bilateral. EXTREMITIES: Left lower extremity is noted to have swelling of the BKA stump. Cap refill is less than 2 seconds. LYMPHATIC: No evidence of any swollen lymph nodes. MUSCULOSKELETAL: Upon inspection of the left lower extremity, there are no open areas noted of the left BKA stump; however, there is swelling and erythema noted. There is tenderness noted with palpation also with any range of motion of the left knee. ASSESSMENT AND DIAGNOSES: Left below knee amputation infection. PLAN: Above assessment was discussed with the patient. At this time, the patient was admitted to [facility] for continued IV antibiotic treatment with plans to go to the OR tomorrow for I&D of the left BKA stump and possible revision of the left BKA. The patient will be kept n.p.o. after midnight. Medicine was consulted for medical management of the patient's secondary diagnoses. Also infectious disease will be consulted for antibiotic treatment. The patient will be followed throughout her stay for continued infection control and wound healing. SRINATH
[2017-08-26] MEDS ORDERED: CEFTRIAXONE SOD INJ 2 GM in DEXTROSE 5% ADD-VANTAGE 50ML 50 ML IV SCH (23:45)
[2017-08-27] VITALS (30 sets, daily range): BP systolic 67–129; BP diastolic 33–78; PULSE 70–88; TEMP 36.8–38.1; O2SAT 90–100
[2017-08-27] MEDS: PROMETHAZINE HCL 25 MG TAB PO PRN (00:08)
[2017-08-27] MEDS: OXYCODONE HCL IR 5 MG TAB (IMMEDIATE RELEASE) PO PRN ×2 (00:09→03:51)
[2017-08-27] MEDS: INSULIN ASPART 100 UNITS/ML 3 ML PEN SC SCH ×6 (00:14→21:00)
[2017-08-27] MEDS ORDERED: NURSING VERBAL MED ORDER ONE ×2 (02:15→09:15)
[2017-08-27] MEDS: LEVOTHYROXINE 112 MCG TAB PO SCH (05:41)
[2017-08-27] MEDS: ONDANSETRON INJ 2 MG/ML 2 ML VIAL IV PRN (05:50)
[2017-08-27] MEDS: HYDROmorphone INJ 2 MG/ML SYR/VIAL IV PRN ×2 (05:50→12:29)
[2017-08-27 06:06] LABS: BASO % 0.2 %; BASO ABS # 0.02 K/uL (0-0.2); COMPLETE YES; EOS % 0.9 %; HEMATOCRIT 32.8 % (37-47); IG% 0.3 %; LYMPH % 13.4 %; LYMPH ABS # 1.56 K/uL (1.2-3.4); MEAN CELL VOLUME 87.5 fL (80-100); MEAN PLATELET VOLUME 9.1 fL (7.4-10.4); MONO % 11.9 %; NEUT % 73.3 %; PLATELET COUNT 253 K/uL (130-400); RED BLOOD COUNT 3.75 M/uL (4.2-5.4); WHITE BLOOD COUNT 11.67 K/uL (4.8-10.8)
[2017-08-27 06:29] LABS: ESTIMATED AVERAGE GLUCOSE 278 mg/dl; HA1C FLAG Normal (Normal)
[2017-08-27 06:42] LABS: CALCIUM 8.8 mg/dl (8.5-10.1); CREATININE 2.2 mg/dl (0.60-1.20); POTASSIUM 3.6 mmol/L (3.5-5.1)
[2017-08-27] MEDS ORDERED: SODIUM CHLORIDE 0.9% 1000ML 1,000 ML IV SCH ×2 (07:17→15:30)
[2017-08-27] MEDS ORDERED: SODIUM CHLORIDE 0.45% 1000ML 1,000 ML IV SCH (07:17)
[2017-08-27] MEDS: SODIUM CHLORIDE 0.9% 1000ML 1,000 ML IV SCH ×2 (07:39→16:23)
[2017-08-27] MEDS: FERROUS SULFATE 325 MG TAB PO SCH ×2 (08:30→16:00)
[2017-08-27] MEDS ORDERED: INSULIN GLARGINE SOLOSTAR 100 UNITS/ML 3 ML PEN SC SCH (09:00)
[2017-08-27] MEDS: MoRPHine SULFATE CR 15 MG TAB (MS CONTIN) PO SCH ×2 (09:00→22:10)
[2017-08-27] MEDS: ISOSORBIDE MONONITRATE 60 MG TABCR PO SCH ×2 (09:00→21:00)
[2017-08-27] MEDS: ALPRAZOLAM 0.5 MG TAB PO SCH ×3 (09:00→22:10)
[2017-08-27] MEDS: RANOLAZINE 500 MG ER TAB PO SCH ×2 (09:00→21:00)
[2017-08-27] MEDS: CHOLECALCIFEROL 1000 INTER.UNIT TAB PO SCH (09:00)
--- NOTE | 2017-08-27 11:00 | Clinical Documentation Query ---
CLINICAL DOCUMENTATION QUERY 51 YO female with bilat BKA and recurrent infection of the left stump. In your clinical opinion is this patient being managed for: ( xx) Acute kidney failure ( ) Not Agree ( ) Other explanation of clinical findings (Please Explain) ( ) Unable to determine (Please Define) ( ) Need to Discuss The medical record reflects the following clinical findings, treatment, and risk factors. Clinical Indicators: Creatinine 2.20 trending up from 0.78, GFR 25.5 trending down from 89.3 Treatment: Daily PRP's, IV hydration Risk Factors: Renal failure, surgical interventions. DM, chronic infection Please clarify and document your clinical opinion in the progress notes and discharge summary. Terms such as "probable", "suspected", "likely", "questionable", "possible", or "still to be ruled out" are acceptable. IF IN AGREEMENT, YOU MUST DOCUMENT ABOVE DIAGNOSTIC STATEMENT IN DAILY PROGRESS NOTES AND DISCHARGE SUMMARY. This document is not part of the patient's record. Thank You, Chioma Christina RN [phone]
[2017-08-27] MEDS ORDERED: SODIUM CHLORIDE 0.9% 500ML 500 ML IV SCH ×2 (11:30→13:00)
--- NOTE | 2017-08-27 14:45 | DIAGNOSTIC IMAGING REPORT ---
HEAD CT NONCONTRAST CT DOSE: 537.48 mGy.cm HISTORY: eval acute stroke TECHNIQUE: Multiaxial CT images of the head were performed without the use of intravenous contrast. Automated exposure control was utilized for this study. A dose lowering technique was utilized adhering to the principles of ALARA. Comparison: None. Findings: The paranasal sinuses and mastoid air cells are clear. The calvarium and skull base are intact. The ventricles and sulci are within normal limits. There is no mass, hematoma, midline shift, or acute infarct. Impression: No acute intracranial abnormality. Electronically signed by: Abdiaziz Stanton M.D. 08/27/2017 2:43 PM Dictated Date/Time: 08/27/2017 2:37 PM
--- NOTE | 2017-08-27 14:59 | Pharmacy Progress Note ---
Glycemic: Assessment & Plan Date of Service Aug 27, 2017. Assessment & Plan ASSESSMENT: * Pt is well known to pharmacy service from previous admissions/glycemic consults * Pt admitted last evening with severe hyperglycemia (BSGs 297, 298) secondary to infection and missed insulin dose from that morning. * Increased PM dose was given last evening (30 units instead of 22 units per outpatient order) * Reduced dosing was ordered for this morning while NPO awaiting OR for debridement/possible AKA. Pt was ordered Lantus 30 units for NPO (instead of 44 units per outpatient dosing), however, per anesthesia only 15 units was given. * Pt now transferred to ICU secondary to hypotension/stroke alert. * Likely regimen will need significantly adjusted for change in patient status. PLAN: * Depending on BSG trends this evening: * If BSG > 220 mg/dl recommend initiating IV insulin infusion per protocol for ICU hyperglycemia * If BSG 220mg/dl or below, recommend continuing current dosing Lantus 25-30units SQ BID based on BSG NovoLog Q6hrs --> change to Q4hrs for change in status Goal Range = 120-150mg/dl CF = 10mg/dl/unit CR = 1 unit for every 5g CHO consumed * Please note that the plan above was derived based on current level of insulin resistance and hospital stress. These recommendations are appropriate for inpatient admission only. Plan of care upon discharge will need to be reassessed to avoid potential outpatient hypo/hyperglycemia.
[2017-08-27] MEDS ORDERED: SODIUM CHLORIDE 0.9% 500ML 500 ML IV ONE (15:00)
[2017-08-27] MEDS ORDERED: ACETAMINOPHEN 325 MG TAB PO PRN (15:30)
[2017-08-27] MEDS ORDERED: NOREPINEPHRINE BIT INJ 8 MG in DEXTROSE 5% 500ML 500 ML IV SCH (15:45)
[2017-08-27 15:52] LABS: BUN/CREATININE RATIO 10.8 (10-20); CALCIUM 7.8 mg/dl (8.5-10.1); CREATININE 2.61 mg/dl (0.60-1.20); POTASSIUM 3.7 mmol/L (3.5-5.1)
[2017-08-27] MEDS ORDERED: ONDANSETRON INJ 2 MG/ML 2 ML VIAL IV STA (15:55)
[2017-08-27] MEDS ORDERED: INSULIN ASPART 100 UNITS/ML 3 ML PEN SC SCH ×2 (16:00→17:15)
[2017-08-27] MEDS ORDERED: INSULIN IV INFUSION PROTOCOL ONE (16:01)
--- NOTE | 2017-08-27 16:09 | Hospitalist Progress Note ---
Hospitalist Progress Note Date of Service Aug 27, 2017. (Rochelle Roberts, DEN) Subjective Pt evaluation today including: conversation w/ patient, physical exam, chart review, lab review, review of inpatient medication list Ms. Freeman was febrile overnight. Not febrile today but SBPs in the 80s. She did not complain particularly of pain, no drainage from knee. She has been having aches and chills over night. Ms. Freeman appeared pale and drowsy. 1L fluid bolus ordered and a lactic acid which was WNL. At 1400 she stated that her arm had been weak for 2 hours and a stroke alert was called. CT scan was normal. Dr. De La Cruz from [place] was consulted via telestroke cart. His recommendations were for no TPA because at that point she was 3.5 hours out from last known well. He also felt that her symptoms were hypotension related. Constitutional: see hpi Respiratory: no sob,cough, sputum, or wheezing Cardiac: no chest pain, palpitations, edema, orthopnea or lightheadedness GI: no abdominal pain, nausea, vomiting, diarrhea or constipation : no dysuria or hesitancy Extremities: no joint pain or weakness, pain at L BKA Skin: no rash (Rochelle Roberts ., DEN) Medications Medications (Trade) Dose Ordered Sig/Ochoa Route Start Time Stop Time Status Last Admin Dose Admin Ondansetron HCl (Zofran Inj) 4 mg Q6H PRN IV 08/26/17 19:00 09/25/17 18:59 08/27/17 05:50 4 MG Alprazolam (Xanax Tab) 1 mg TID PO 08/26/17 21:00 09/25/17 20:59 08/26/17 21:19 1 MG Isosorbide Mononitrate (Imdur Ext Rel Tab) 60 mg BID PO 08/26/17 21:00 09/25/17 20:59 08/26/17 21:25 60 MG Levothyroxine Sodium (Synthroid Tab) 112 mcg DAILYBB PO 08/27/17 06:00 09/26/17 05:59 08/27/17 05:41 112 MCG Lisinopril (Zestril Tab) 40 mg HS PO 08/26/17 21:00 09/25/17 20:59 08/26/17 21:24 40 MG Promethazine HCl (Phenergan Tab) 25 mg Q6 PRN PO 08/26/17 19:15 09/25/17 19:14 08/27/17 00:08 25 MG Ranolazine (Ranexa ER Tab) 1,000 mg BID PO 08/26/17 21:00 09/25/17 20:59 08/26/17 21:25 1,000 MG Oxycodone HCl (Roxicodone Immediate Rel Tab) 10 mg Q4 PRN PO 08/26/17 19:15 09/09/17 19:14 08/27/17 03:51 10 MG Hydromorphone HCl (Dilaudid Inj) 2 mg Q4H PRN IV 08/26/17 20:00 09/09/17 19:59 08/27/17 12:29 2 MG Insulin Aspart (novoLOG ASPART) SLIDING SCALE ACHS SC 08/26/17 21:00 08/27/17 02:40 DC 08/26/17 21:29 15 UNITS Insulin Aspart (novoLOG ASPART) SLIDING SCALE 0000,0400 SC 08/27/17 00:00 08/27/17 04:01 DC 08/27/17 03:51 9 UNITS Insulin Glargine (Lantus Solostar Pen) 30 units ONE ONCE SC 08/26/17 21:00 08/26/17 21:01 DC 08/26/17 21:29 30 UNITS Insulin Glargine (Lantus Solostar Pen) SEE PROTOCOL TEXT BID SC 08/27/17 09:00 09/26/17 08:59 08/27/17 09:41 15 UNITS Heparin Sodium (Porcine) (Heparin 100 Unit/ml 5ml Flush) 5 ml PRN PRN IV 08/26/17 21:15 09/25/17 21:14 08/27/17 05:50 5 ML Heparin Sodium (Porcine) (Heparin 100 Unit/ml 5ml Flush) 5 ml STK-MED ONCE .ROUTE 08/26/17 21:13 08/26/17 21:14 DC 08/26/17 21:25 5 ML Ceftriaxone Sodium 2 gm/ Dextrose 50 ml @ 100 mls/hr DAILY@2200 IV 08/26/17 23:45 09/05/17 23:44 08/27/17 00:08 100 MLS/HR Insulin Aspart (novoLOG ASPART) SLIDING SCALE Q6 SC 08/27/17 07:00 08/27/17 15:00 DC 08/27/17 12:28 9 UNITS Sodium Chloride 1,000 ml @ 100 mls/hr Q10H IV 08/27/17 07:15 09/26/17 07:14 08/27/17 07:39 100 MLS/HR Sodium Chloride 500 ml @ 999 mls/hr Q31M IV 08/27/17 11:30 08/27/17 12:47 DC 08/27/17 13:14 999 MLS/HR Sodium Chloride 500 ml @ 999 mls/hr Q31M IV 08/27/17 13:00 08/27/17 13:30 DC 08/27/17 13:30 999 MLS/HR (Rochelle Roberts, DEN) Objective Vital Signs Date Time Temp Pulse Resp B/P (MAP) Pulse Ox O2 Delivery O2 Flow Rate FiO2 08/27/17 14:23 36.8 85 16 94/60 (71) 97 Room Air 08/27/17 13:17 80/46 (57) 08/27/17 11:56 36.9 77 17 87/53 (64) 91 Room Air 08/27/17 08:45 85/53 (64) 08/27/17 08:09 90 Room Air 08/27/17 08:04 38.1 88 16 90/54 (66) 90 Room Air 08/27/17 07:20 Room Air 08/27/17 00:00 Room Air 08/26/17 22:56 39.0 91 16 102/65 (77) 91 Room Air 08/26/17 18:00 94 Room Air 08/26/17 18:00 Room Air 08/26/17 17:55 37.6 92 18 156/76 (Rochelle Roberts, DEN) Physical Exam Notes: General: drowsy Eyes: normal inspection, PERLL Respiratory: chest non tender, clear to auscultation, normal breath sounds, no respiratory distress, no accessory muscle use Cardiac: regular rate and rhythm, no rub or gallop, no murmur, no edema, no jvd GI/: active bowel sounds, no abd pain or tenderness, soft, non distended Extremities:left arm weakness with mild pronation, non tender, stump does not particularly appear reddened, no drainage, sutures intact Neuro/Psych: drowsy and oriented x 3, normal mood and affect Skin: pale (Rochelle Roberts ., DEN) Laboratory Results Last 24 Hours Test 08/26/17 19:28 08/26/17 20:22 08/26/17 21:35 08/26/17 23:55 White Blood Count 10.96 K/uL Red Blood Count 4.08 M/uL Hemoglobin 11.7 g/dL Hematocrit 35.2 % Mean Corpuscular Volume 86.3 fL Mean Corpuscular Hemoglobin 28.7 pg Mean Corpuscular Hemoglobin Concent 33.2 g/dl RDW Standard Deviation 44.7 fL RDW Coefficient of Variation 14.2 % Platelet Count 220 K/uL Mean Platelet Volume 9.0 fL Prothrombin Time 11.4 SECONDS Prothromb Time International Ratio 1.1 Sodium Level 131 mmol/L Potassium Level 3.6 mmol/L Chloride Level 98 mmol/L Carbon Dioxide Level 25 mmol/L Anion Gap 8.0 mmol/L Blood Urea Nitrogen 16 mg/dl Creatinine 0.78 mg/dl Est Creatinine Clear Calc Drug Dose 90.3 ml/min Estimated GFR () 103.5 Estimated GFR (Non- 89.3 BUN/Creatinine Ratio 20.1 Random Glucose 297 mg/dl Calcium Level 8.7 mg/dl Total Bilirubin 0.9 mg/dl Aspartate Amino Transf (AST/SGOT) 8 U/L Alanine Aminotransferase (ALT/SGPT) 16 U/L Alkaline Phosphatase 102 U/L Total Protein 7.1 gm/dl Albumin 3.1 gm/dl Globulin 4.0 gm/dl Albumin/Globulin Ratio 0.8 Bedside Glucose 298 mg/dl 164 mg/dl Urine Color ORANGE Urine Appearance CLOUDY Urine pH 5.0 Urine Specific [place] 1.034 Urine Protein 1+ Urine Glucose (UA) 3+ Urine Ketones TRACE Urine Occult Blood NEG Urine Nitrite POS Urine Bilirubin NEG Urine Urobilinogen NEG Urine Leukocyte Esterase TRACE Urine WBC (Auto) >30 /hpf Urine RBC (Auto) 0-4 /hpf Urine Hyaline Casts (Auto) 0 /lpf Urine Epithelial Cells (Auto) >30 /lpf Urine Bacteria (Auto) NEG Urine Renal Epithelial Cells /lpf Urine Pathogenic Casts /lpf Test 08/27/17 03:39 08/27/17 05:44 08/27/17 07:25 08/27/17 13:10 Bedside Glucose 236 mg/dl 218 mg/dl White Blood Count 11.67 K/uL Red Blood Count 3.75 M/uL Hemoglobin 10.5 g/dL Hematocrit 32.8 % Mean Corpuscular Volume 87.5 fL Mean Corpuscular Hemoglobin 28.0 pg Mean Corpuscular Hemoglobin Concent 32.0 g/dl Platelet Count 253 K/uL Mean Platelet Volume 9.1 fL Neutrophils (%) (Auto) 73.3 % Lymphocytes (%) (Auto) 13.4 % Monocytes (%) (Auto) 11.9 % Eosinophils (%) (Auto) 0.9 % Basophils (%) (Auto) 0.2 % Neutrophils # (Auto) 8.55 K/uL Lymphocytes # (Auto) 1.56 K/uL Monocytes # (Auto) 1.39 K/uL Eosinophils # (Auto) 0.11 K/uL Basophils # (Auto) 0.02 K/uL RDW Standard Deviation 46.8 fL RDW Coefficient of Variation 14.5 % Immature Granulocyte % (Auto) 0.3 % Immature Granulocyte # (Auto) 0.04 K/uL Sodium Level 132 mmol/L Potassium Level 3.6 mmol/L Chloride Level 97 mmol/L Carbon Dioxide Level 26 mmol/L Anion Gap 9.0 mmol/L Blood Urea Nitrogen 22 mg/dl Creatinine 2.20 mg/dl Est Creatinine Clear Calc Drug Dose 32.0 ml/min Estimated GFR () 29.5 Estimated GFR (Non- 25.5 BUN/Creatinine Ratio 10.0 Random Glucose 221 mg/dl Estimated Average Glucose 278 mg/dl Hemoglobin A1c 11.3 % Calcium Level 8.8 mg/dl Lactic Acid Level 0.9 mmol/L Test 08/27/17 14:22 08/27/17 15:24 Bedside Glucose 193 mg/dl (Rochelle Roberts ., DEN) Assessment and Plan 51 yo woman with left BKA here for debridement with ortho of chronically infected stump. Ms. Freeman was febrile overnight. Not febrile today but SBPs in the 80s. She did not complain particularly of pain, no drainage from knee. She has been having aches and chills over night. Ms. Freeman appeared pale and drowsy when I saw her late morning. 1L fluid bolus ordered and a lactic acid which was WNL. At 1400 she stated that her arm had been weak for 2 hours and a stroke alert was called. CT scan was normal. Dr. De La Cruz from [place] was consulted via telestroke cart. His recommendations were for no TPA because at that point she was 3.5 hours out from last known well. He also felt that her symptoms were hypotension related. R/o CVA - stroke alert - CT - neg for bleed - Pending MRI/MRA brain, carotid dopplers - transfer to ICU Hypotension - does not appear to be sepsis - lactic acid negative, no further fevers since last night - bolus with 2L so far - continue fluids to resuscitate, maintenance fluid at 150 ml/hr - further blood pressure management per ICU Recurrent left stump infection Discussed with ID who is consulted - changed abx from Rocephin to linezolid and zosyn Blood cultures pending Pain control surgical care per Ortho - on hold for now given possible CVA PAM - Creat 2.2, baseline is below 1.0 - fluid resuscitation - dehydration due to elevated sugars? Came in with BSG nearly 300, possible they were running higher at home and she became dehydrated. A1cs run 11-13 T1DM glycemic consult placed by ortho Last Hgb A1C= 13.9, currently 11 CAD aspirin and plavix no ekg changes at this time Hypothyroidism Cont Synthroid h/o PE DVT proph held - per ortho (Rochelle Roberts ., DEN) BUSINESS SPECIALIST Physician Supervision Note: I interviewed and examined the patient. Discussed with Rochelle Roberts BUSINESS SPECIALIST and agree with findings and plan as documented in the note. Any exceptions or clarifications are listed here: None I reviewed her note regarding the acute events occurred in the afternoon of with a stroke alert being called for left arm weakness. Rochelle and Fabi spent at least 45-50 minutes at the patient's bedside I personally discussed this case with the stroke alert physician. The conclusion of a stroke alert was indicated Adilia Roberts. The patient was kept in intensive care unit due to persistent hypotension and the need for volume resuscitation and further monitoring TPA was not felt to be appropriate. Her vital signs show her blood pressure below with a map in the high 50s and low 60s intensive care unit physicians were consulted for treatment fluid resuscitation will be continued Her physical exam in time did show left arm weakness including bicep tricep weakness palmar drift intrinsic hand muscle weakness but no other facial weakness the patient is a bilateral amputee in her lower legs cannot be tested her hip girdle muscles however did seem to be strong but so did her shoulder and shoulder girdles. The patient is known to have a peripheral vascular disease and coronary vascular disease are likely she has cerebrovascular disease she is persistently on aspirin and Plavix and this will be continued. Concern for acute CVA initial head CT negative further imaging study be undertaken With regard to infectious disease etiology the patient will be changed from ceftriaxone to the nasal lid and Zosyn as she does have a vancomycin allergy Blood pressure be watched cautiously in the ICU with further management per the ICU team At least 45 minutes of critical care time were done where Rochelle and Fabi were at the patient's bedside Documented By: Perry Laird (Perry Laird M.D.)
[2017-08-27] MEDS ORDERED: PIPERACILL/TAZOBAC IV 4.5 GM in DEXTROSE 5% 100ML IV ONE (16:15)
[2017-08-27] MEDS ORDERED: INSULIN REGULAR 250 UNITS in SODIUM CHLORIDE 0.9% 250ML 250 ML IV SCH (16:15)
--- NOTE | 2017-08-27 16:16 | Progress Note ---
Progress Note Date of Service Aug 27, 2017. Progress Note ID Consult Dictated #[id number] A/P: 1. Infected bka stump -continue broad spectrum abx for now, follow cultures and OR findings -Thank you
[2017-08-27] MEDS: LINEZOLID / D5W 600 MG in PREMIXED IN D5W 300 ML IV SCH (16:20)
[2017-08-27] MEDS ORDERED: PIPERACILL/TAZOBAC CONSULT ACTIVE PRN (16:30)
--- NOTE | 2017-08-27 16:44 | INFECT. DISEASE CONSULTATION ---
DATE OF CONSULTATION: 08/27/2017 REQUESTING PHYSICIAN: Dr. Ramos. HISTORY OF PRESENT ILLNESS: This is a 51-year-old female who was admitted secondary to pain in her left lower extremity. She recently had debridement of this area due to infection. Previous cultures on the 01 of August grew MSSA. She has been on Rocephin for this. She was recently seen by ID in the office and was doing well on antibiotics. She had worsening pain and came into the hospital. She has had no wound dehiscence or drainage. She continues to have pain. She did have fevers overnight as high as 39. She remains on Rocephin. Her urinalysis had greater than 30 wbc's, but no bacteria. Blood cultures were obtained and are pending. Her white blood cell count was initially 10.9 and is now 11.6. Her creatinine was normal on admission and now is 2.2. She was to go to the operating room today; however, she had a period where her left upper extremity became flaccid and she lost control of this. She did have a CAT scan of the head which was negative acutely for stroke. She was subsequently transferred to the intensive care unit. She is currently having some nausea. She was given Phenergan with relief. She currently denies any fevers or chills. Her only complaint on my exam is continued pain in the left leg. She denies any trauma to the area. She denies any chest pain, cough, shortness of breath, nausea, vomiting or diarrhea. PAST MEDICAL HISTORY: Significant for hypertension, type 1 diabetes, hypothyroidism, coronary artery disease, osteomyelitis, bilateral BKAs with multiple complications and I&Ds. FAMILY HISTORY: Noncontributory. SOCIAL HISTORY: The patient denies any tobacco use, alcohol use or drug use. ALLERGIES: INCLUDE SPIRONOLACTONE, ATORVASTATIN, FENOFIBRATE AND VANCOMYCIN. CURRENT MEDICATIONS: Include Zosyn, insulin, Zyvox, norepinephrine, morphine, vitamin D, iron, Synthroid, ceftriaxone, subQ heparin, Xanax, Imdur, lisinopril, morphine, Ranexa, Dilaudid, Pepcid, Phenergan, Senokot, Roxicodone, Tylenol, and Benadryl. PHYSICAL EXAMINATION: VITAL SIGNS: T-max is 39, current temperature is 36.8; pulse 85, respiratory rate 16, blood pressure 94/60, oxygen saturation is 97% on room air. GENERAL: She is awake, alert and oriented. She is in no acute distress. HEENT: Mucous membranes are dry. Extraocular muscles are intact. HEART: Regular. LUNGS: Clear. ABDOMEN: Soft. EXTREMITIES: Right stump is well healed; left stump's sutures are clean, dry and intact. There is no wound dehiscence. There is no erythema or necrotic tissue. There is warmth and tenderness. There is minimal erythema. LABORATORY STUDIES: CBC reveals a white blood cell count of 11.6, hemoglobin 10.5, platelets are 253. Chemistry panel reveals a sodium of 134, potassium 3.7, chloride 101, bicarbonate 23, BUN 28, creatinine 2.6 and glucose is 228. Urinalysis shows greater than 30 wbc's and no bacteria. Blood cultures are pending. IMAGING DATA: Head CT is as above. ASSESSMENT AND PLAN: Likely recurrent infection of her left below the knee amputation stump. She will be continued on broad spectrum antibiotics pending the results of blood cultures if she is cleared for the OR and her operative cultures will be obtained. We will follow along with you. Thank you for this consultation.
--- NOTE | 2017-08-27 17:22 | History and Physical ---
History General Date of Service: Aug 27, 2017. Stated Complaint: Infection Of Bka, Fever History of Present Illness 51 year old female with a PMH of uncontrolled T1DM, CAD, HTN and Bilateral BKA with several I&D of left BKA who came to the hospital due to worsening pain of left leg as well as ongoing fevers and chills. She had blood cultures obtained, lab work drawn and she was placed on IV rocephin with plan to go to the operating room with left bka incision and drainage. She was febrile overnight with a tmx of 39. This morning at the bedside she appeared pale and drowsy according to the primary team and she was given a 1L bolus and had a lactic acid ordered which was within normal limits. At 2pm a stroke alert was called as the patient complained of a weak right arm. She had an emergent CT scan of her head which was normal. Patient was transferred to the ICU. Dr. De La Cruz was consulted via telestroke cart and TPA was not recommended due to the last well known being >3.5 hours and he believed that her symptoms were hypotension related. In the ICU the patient remained hypotensive with blood pressure in the 70's/30's therefore norepinephrine was started at .1 to maintain a MAP >65. She had the IV team insert two peripheral IV lines and the patient was taken for an MRI for further evaluation of her stroke like symptoms. With regards to her ongoing BKA infection she has been following with infectious disease. On August 01 she grew MSSA and she had been on rocephin as an outpatient. Her antibiotics today were switched from rocephin to linezolid and zosyn and she has blood cultures pending. Her diabetes mellitus is poorly controlled and her HbA1c done in the hospital was 11.3. Historian: patient, other (hospital records) Past Medical/Surgical History HTN T1DM Hypothyroidism CAD Osteomyelitis which led to BKA Multiple I&D of left BKA Family History Diabetes mellitus Social History Smoking Status: Never Smoker Alcohol: none Drug Use: none Marital Status: Housing Status: lives with family Occupation Status: disabled Immunizations History of Influenza Vaccine: Unknown History of Tetanus Vaccine?: Unknown History of Pneumococcal: Unknown History of Hepatitis B Vaccine: Unknown History of MDRO History of MDRO: Yes Type of MDRO: MRSA Allergies Coded Allergies: Butorphanol (Verified Allergy, Severe, SHORTNESS OF BREATH, 03/01/17) Spironolactone (Verified Allergy, Mild, RASH, 03/01/17) Atorvastatin (Verified Allergy, Unknown, RASH, 03/01/17) Fenofibrate (Verified Allergy, Unknown, RASH, 03/01/17) Vancomycin (Verified Adverse Reaction, Mild, RASH-DEVYN SYNDROME, 03/01/17) red man syndrome Current Home Medications Reported Home Medications Medications Dose Route/Sig Max Daily Dose Days Date Category Dose Instructions Toujeo Solostar (Insulin Glargine) 300 Unit/Ml Inj 22 Units SQ QPM 08/26/17 Reported Ms Contin (Morphine Sulfate) 30 Mg Tab 30 Mg PO Q12 08/26/17 Reported Oxycodone HCl 5 Mg Tab 5 Mg PO Q6H PRN 5 08/05/17 Rx Ferrous Sulfate 325 Mg Tab 325 Mg PO BIDM 30 08/05/17 Rx Lisinopril 40 Mg Tab 40 Mg PO HS 07/30/17 Reported Imdur Ext Rel (Isosorbide Mononitrate) 60 Mg Ertab 60 Mg PO BID 12/22/16 Reported Promethazine HCl 25 Mg Tab 25 Mg PO Q6 PRN 12/22/16 Reported Oxycodone Hcl 10 Mg Tab 10 Mg PO Q6 PRN 12/22/16 Reported Vitamin D (Cholecalciferol) 2,000 Unit Cap 1 Cap PO DAILY 11/10/16 Rx Toujeo Solostar (Insulin Glargine) 300 Unit/Ml Inj 44 Units SC QAM 05/20/16 Reported Pepcid (Famotidine) 20 Mg Tab 20 Mg PO HS PRN 05/12/16 Reported PT INTERCHANGES WITH ZANTAC AND PRILOSEC Stool Softener (Sennosides-Docusate Sodium) 1 Tab Tab 2 Tab PO HS PRN 05/12/16 Reported Xanax (Alprazolam) 1 Mg Tab 1 Mg PO TID 05/12/16 Reported Synthroid (Levothyroxine Sodium) 112 Mcg Tab 112 Mcg PO QAM 05/12/16 Reported Ranexa (Ranolazine) 1,000 Mg Tab 1,000 Mg PO BID 04/18/15 Reported Aspirin Ec (Aspirin) 81 Mg Tab 81 Mg PO QAM 04/16/15 Reported Physical Exam Date Time Temp Pulse Resp B/P (MAP) Pulse Ox O2 Delivery O2 Flow Rate FiO2 08/27/17 14:23 36.8 85 16 94/60 (71) 97 Room Air 08/27/17 13:17 80/46 (57) 08/27/17 11:56 36.9 77 17 87/53 (64) 91 Room Air 08/27/17 08:45 85/53 (64) 08/27/17 08:09 90 Room Air 08/27/17 08:04 38.1 88 16 90/54 (66) 90 Room Air 08/27/17 07:20 Room Air 08/27/17 00:00 Room Air 08/26/17 22:56 39.0 91 16 102/65 (77) 91 Room Air 08/26/17 18:00 94 Room Air 08/26/17 18:00 Room Air 08/26/17 17:55 37.6 92 18 156/76 Weight in Kilograms: 81.810 Diagnostics Laboratory Results Results Past 24 Hours Test 08/26/17 19:28 08/26/17 20:22 08/26/17 21:35 08/26/17 23:55 Range/Units White Blood Count 10.96 4.8-10.8 K/uL Red Blood Count 4.08 4.2-5.4 M/uL Hemoglobin 11.7 12.0-16.0 g/dL Hematocrit 35.2 37-47 % Mean Corpuscular Volume 86.3 80-100 fL Mean Corpuscular Hemoglobin 28.7 25-34 pg Mean Corpuscular Hemoglobin Concent 33.2 32-36 g/dl RDW Standard Deviation 44.7 36.4-46.3 fL RDW Coefficient of Variation 14.2 11.5-14.5 % Platelet Count 220 130-400 K/uL Mean Platelet Volume 9.0 7.4-10.4 fL Prothrombin Time 11.4 9.0-12.0 SECONDS Prothromb Time International Ratio 1.1 0.9-1.1 Sodium Level 131 136-145 mmol/L Potassium Level 3.6 3.5-5.1 mmol/L Chloride Level 98 98-107 mmol/L Carbon Dioxide Level 25 21-32 mmol/L Anion Gap 8.0 3-11 mmol/L Blood Urea Nitrogen 16 7-18 mg/dl Creatinine 0.78 0.60-1.20 mg/dl Est Creatinine Clear Calc Drug Dose 90.3 ml/min Estimated GFR () 103.5 Estimated GFR (Non- 89.3 BUN/Creatinine Ratio 20.1 10-20 Random Glucose 297 70-99 mg/dl Calcium Level 8.7 8.5-10.1 mg/dl Total Bilirubin 0.9 0.2-1 mg/dl Aspartate Amino Transf (AST/SGOT) 8 15-37 U/L Alanine Aminotransferase (ALT/SGPT) 16 12-78 U/L Alkaline Phosphatase 102 45-117 U/L Total Protein 7.1 6.4-8.2 gm/dl Albumin 3.1 3.4-5.0 gm/dl Globulin 4.0 2.5-4.0 gm/dl Albumin/Globulin Ratio 0.8 0.9-2 Bedside Glucose 298 164 70-90 mg/dl Urine Color ORANGE Urine Appearance CLOUDY CLEAR Urine pH 5.0 4.5-7.5 Urine Specific [place] 1.034 1.000-1.030 Urine Protein 1+ NEG Urine Glucose (UA) 3+ NEG Urine Ketones TRACE NEG Urine Occult Blood NEG NEG Urine Nitrite POS NEG Urine Bilirubin NEG NEG Urine Urobilinogen NEG NEG Urine Leukocyte Esterase TRACE NEG Urine WBC (Auto) >30 0-5 /hpf Urine RBC (Auto) 0-4 0-4 /hpf Urine Hyaline Casts (Auto) 0 0-5 /lpf Urine Epithelial Cells (Auto) >30 0-5 /lpf Urine Bacteria (Auto) NEG NEG Urine Renal Epithelial Cells 0-5 /lpf Urine Pathogenic Casts 0 /lpf Test 08/27/17 03:39 08/27/17 05:44 08/27/17 07:25 08/27/17 12:12 Range/Units Bedside Glucose 236 218 234 70-90 mg/dl White Blood Count 11.67 4.8-10.8 K/uL Red Blood Count 3.75 4.2-5.4 M/uL Hemoglobin 10.5 12.0-16.0 g/dL Hematocrit 32.8 37-47 % Mean Corpuscular Volume 87.5 80-100 fL Mean Corpuscular Hemoglobin 28.0 25-34 pg Mean Corpuscular Hemoglobin Concent 32.0 32-36 g/dl Platelet Count 253 130-400 K/uL Mean Platelet Volume 9.1 7.4-10.4 fL Neutrophils (%) (Auto) 73.3 % Lymphocytes (%) (Auto) 13.4 % Monocytes (%) (Auto) 11.9 % Eosinophils (%) (Auto) 0.9 % Basophils (%) (Auto) 0.2 % Neutrophils # (Auto) 8.55 1.4-6.5 K/uL Lymphocytes # (Auto) 1.56 1.2-3.4 K/uL Monocytes # (Auto) 1.39 0.11-0.59 K/uL Eosinophils # (Auto) 0.11 0-0.5 K/uL Basophils # (Auto) 0.02 0-0.2 K/uL RDW Standard Deviation 46.8 36.4-46.3 fL RDW Coefficient of Variation 14.5 11.5-14.5 % Immature Granulocyte % (Auto) 0.3 % Immature Granulocyte # (Auto) 0.04 0.00-0.02 K/uL Sodium Level 132 136-145 mmol/L Potassium Level 3.6 3.5-5.1 mmol/L Chloride Level 97 98-107 mmol/L Carbon Dioxide Level 26 21-32 mmol/L Anion Gap 9.0 3-11 mmol/L Blood Urea Nitrogen 22 7-18 mg/dl Creatinine 2.20 0.60-1.20 mg/dl Est Creatinine Clear Calc Drug Dose 32.0 ml/min Estimated GFR () 29.5 Estimated GFR (Non- 25.5 BUN/Creatinine Ratio 10.0 10-20 Random Glucose 221 70-99 mg/dl Estimated Average Glucose 278 mg/dl Hemoglobin A1c 11.3 4.5-5.6 % Calcium Level 8.8 8.5-10.1 mg/dl Test 08/27/17 13:10 08/27/17 14:22 08/27/17 15:24 Range/Units Lactic Acid Level 0.9 0.4-2.0 mmol/L Bedside Glucose 193 70-90 mg/dl Sodium Level 134 136-145 mmol/L Potassium Level 3.7 3.5-5.1 mmol/L Chloride Level 101 98-107 mmol/L Carbon Dioxide Level 23 21-32 mmol/L Anion Gap 10.0 3-11 mmol/L Blood Urea Nitrogen 28 7-18 mg/dl Creatinine 2.61 0.60-1.20 mg/dl Est Creatinine Clear Calc Drug Dose 27.0 ml/min Estimated GFR () 24.0 Estimated GFR (Non- 20.7 BUN/Creatinine Ratio 10.8 10-20 Random Glucose 228 70-99 mg/dl Calcium Level 7.8 8.5-10.1 mg/dl Microbiology Results 08/26/17 Blood Culture, Received Pending 08/26/17 Blood Culture, Received Pending 08/27/17 MRSA DNA Surveillance Screen, Ordered Pending Impression Advanced Directives Existing Living Will: No Existing Power of Track Laying Equipment Operator: No
--- NOTE | 2017-08-27 18:07 | Critical Care Consultation ---
Critical Care Consultation Date of Consultation: Aug 27, 2017. Attending Physician: Dom Ramos D.O. Reason for Consultation: Stroke workup and hypotension History of Present Illness 51 year old female with a PMH of uncontrolled T1DM, CAD, HTN and Bilateral BKA with several I&D of left BKA who came to the hospital due to worsening pain of left leg as well as ongoing fevers and chills. She had blood cultures obtained, lab work drawn and she was placed on IV rocephin with plan to go to the operating room with left bka incision and drainage. She was febrile overnight with a tmx of 39. This morning at the bedside she appeared pale and drowsy according to the primary team and she was given a 1L bolus and had a lactic acid ordered which was within normal limits. At 2pm a stroke alert was called as the patient complained of a weak right arm. She had an emergent CT scan of her head which was normal. Patient was transferred to the ICU. Dr. De La Cruz was consulted via telestroke cart and TPA was not recommended due to the last well known being >3.5 hours and he believed that her symptoms were hypotension related. In the ICU the patient remained hypotensive with blood pressure in the 70's/30's therefore norepinephrine was started at .1 to maintain a MAP >65. She had the IV team insert two peripheral IV lines and the patient was taken for an MRI for further evaluation of her stroke like symptoms. With regards to her ongoing BKA infection she has been following with infectious disease. On August 01 she grew MSSA and she had been on rocephin as an outpatient. Her antibiotics today were switched from rocephin to linezolid and zosyn and she has blood cultures pending. Her diabetes mellitus is poorly controlled and her HbA1c done in the hospital was 11.3. Patient was seen at the bedside at 625 pm after MRI imaging. Patient was complaining of 9/10 left lower leg pain. She still was having weakness in her left hand, she had decreased sensation up to her left elbow and was having numbness and tingling down her left arm. Past Medical/Surgical History HTN T1DM Hypothyroidism CAD History of osteomyelitis which has led to bilateral BKA Multiple I&D of left BKA Family History Diabetes mellitus Social History Smoking Status: Never Smoker Drug Use: none Marital Status: Housing Status: lives with family Occupation Status: disabled Allergies Coded Allergies: Butorphanol (Verified Allergy, Severe, SHORTNESS OF BREATH, 03/01/17) Spironolactone (Verified Allergy, Mild, RASH, 03/01/17) Atorvastatin (Verified Allergy, Unknown, RASH, 03/01/17) Fenofibrate (Verified Allergy, Unknown, RASH, 03/01/17) Vancomycin (Verified Adverse Reaction, Mild, RASH-DEVYN SYNDROME, 03/01/17) red man syndrome Home Medications Scheduled Alprazolam (Xanax), 1 MG PO TID Aspirin (Aspirin Ec), 81 MG PO QAM Cholecalciferol (Vitamin D), 1 CAP PO DAILY Ferrous Sulfate (Ferrous Sulfate), 325 MG PO BIDM Insulin Glargine (Toujeo Solostar), 44 UNITS SC QAM Insulin Glargine (Toujeo Solostar), 22 UNITS SQ QPM Isosorbide Mononitrate Ext Rel (Imdur Ext Rel), 60 MG PO BID Levothyroxine Sodium (Synthroid), 112 MCG PO QAM Lisinopril (Lisinopril), 40 MG PO HS Morphine Sulfate (Ms Contin), 30 MG PO Q12 Ranolazine (Ranexa), 1,000 MG PO BID Scheduled PRN Famotidine (Pepcid), 20 MG PO HS PRN for Heartburn Oxycodone HCl (Oxycodone HCl), 5 MG PO Q6H PRN for Pain Oxycodone Hcl (Oxycodone Hcl), 10 MG PO Q6 PRN for Pain Promethazine HCl (Promethazine HCl), 25 MG PO Q6 PRN for Nausea or Vomiting Sennosides-Docusate Sodium (Stool Softener), 2 TAB PO HS PRN for Constipation Current Inpatient Medications Current Inpatient Medications Medications (Trade) Dose Ordered Sig/Ochoa Route Start Time Stop Time Status Last Admin Dose Admin Acetaminophen (Tylenol Tab) 650 mg Q6H PRN PO 08/26/17 19:00 09/25/17 18:59 Diphenhydramine HCl (Benadryl Inj) 25 mg Q8 PRN IV 08/26/17 19:00 09/25/17 18:59 Ondansetron HCl (Zofran Inj) 4 mg Q6H PRN IV 08/26/17 19:00 09/25/17 18:59 08/27/17 05:50 4 MG Alprazolam (Xanax Tab) 1 mg TID PO 08/26/17 21:00 09/25/17 20:59 08/27/17 16:20 1 MG Famotidine (Pepcid Tab) 20 mg HS PRN PO 08/26/17 19:15 09/25/17 19:14 Ferrous Sulfate (Feosol Tab) 325 mg BIDM PO 08/27/17 08:30 09/26/17 08:29 Isosorbide Mononitrate (Imdur Ext Rel Tab) 60 mg BID PO 08/26/17 21:00 09/25/17 20:59 08/26/17 21:25 60 MG Levothyroxine Sodium (Synthroid Tab) 112 mcg DAILYBB PO 08/27/17 06:00 09/26/17 05:59 08/27/17 05:41 112 MCG Lisinopril (Zestril Tab) 40 mg HS PO 08/26/17 21:00 09/25/17 20:59 08/26/17 21:24 40 MG Promethazine HCl (Phenergan Tab) 25 mg Q6 PRN PO 08/26/17 19:15 09/25/17 19:14 08/27/17 00:08 25 MG Senna/Docusate Sodium (Senokot S Tab) 2 tab HS PRN PO 08/26/17 19:15 09/25/17 19:14 Cholecalciferol (Vitamin D Tab) 1,000 inter.unit DAILY PO 08/27/17 09:00 09/26/17 08:59 Morphine Sulfate (Oramorph Sr Tab) 30 mg Q12 PO 08/26/17 21:00 09/09/17 20:59 Ranolazine (Ranexa ER Tab) 1,000 mg BID PO 08/26/17 21:00 09/25/17 20:59 08/26/17 21:25 1,000 MG Oxycodone HCl (Roxicodone Immediate Rel Tab) 5 mg Q4 PRN PO 08/26/17 19:15 09/09/17 19:14 Oxycodone HCl (Roxicodone Immediate Rel Tab) 10 mg Q4 PRN PO 08/26/17 19:15 09/09/17 19:14 08/27/17 03:51 10 MG Miscellaneous Information (Consult Glycemic Management Pharmacy) 1 ea UD PRN N/A 08/26/17 20:01 09/25/17 20:00 Hydromorphone HCl (Dilaudid Inj) 2 mg Q4H PRN IV 08/26/17 20:00 09/09/17 19:59 08/27/17 12:29 2 MG Glucose (Glucose 40% Gel) 15-30 GRAMS 15 GRAMS... UD PRN PO 08/26/17 21:00 09/25/17 20:59 Glucose (Glucose Chew Tab) 4-8 Tablets 4 Tabl... UD PRN PO 08/26/17 21:00 09/25/17 20:59 Dextrose (Dextrose 50% 50ML Syringe) 25-50ML OF 50% DW IV FOR... UD PRN IV 08/26/17 21:00 09/25/17 20:59 Glucagon (Glucagon Inj) 1 mg UD PRN SQ 08/26/17 21:00 09/25/17 20:59 Heparin Sodium (Porcine) (Heparin 100 Unit/ml 5ml Flush) 5 ml PRN PRN IV 08/26/17 21:15 09/25/17 21:14 08/27/17 05:50 5 ML Sodium Chloride 1,000 ml @ 150 mls/hr Q6H40M IV 08/27/17 07:15 09/26/17 07:14 08/27/17 16:23 150 MLS/HR Morphine Sulfate (MoRPHine SULFATE INJ) 2 mg Q2H PRN IV 08/27/17 15:30 09/10/17 15:29 Linezolid 600 mg/ Prmx 300 ml @ 300 mls/hr Q12@0400,1600 IV 08/27/17 16:00 09/06/17 15:59 08/27/17 16:20 300 MLS/HR Norepinephrine Bitartrate 8 mg/ Dextrose 508 ml @ 0 mls/hr Q0M IV 08/27/17 15:45 09/26/17 15:44 08/27/17 16:18 30.7 MLS/HR Insulin Glargine (Lantus Solostar Pen) 25 units BID SC 08/27/17 21:00 09/26/17 20:59 Insulin Human Regular 250 units/ Sodium Chloride 252.5 ml @ 0 mls/hr DAILY@1130 IV 08/27/17 16:15 09/26/17 16:14 Insulin Aspart (novoLOG ASPART) SLIDING SCALE PCHS SC 08/27/17 17:15 09/26/17 17:14 Piperacillin Sod/ Tazobactam Sod 4.5 gm/Dextrose 120 ml @ 30 mls/hr Q12H IV 08/28/17 00:00 09/07/17 00:00 Piperacillin Sod/ Tazobactam Sod (Consult) 1 ea UD PRN N/A 08/27/17 16:30 09/26/17 16:29 Review of Systems Constitutional: + chills, + weakness, No fever, No sweats Eyes: No worsening of vision, No eye pain, No diplopia ENT: No hearing loss, No trouble swallowing Respiratory: No cough, No sputum Cardiovascular: No chest pain, No palpitations Abdomen: No pain, No nausea, No vomiting Musculoskeletal: No joint pain, No muscle pain, No swelling Neurologic: + weakness, + numbness/tingling, No vertigo Hematologic / Lymphatic: No abnormal bleeding/bruising, No clotting problems Physical Exam Date Time Temp Pulse Resp B/P (MAP) Pulse Ox O2 Delivery O2 Flow Rate FiO2 08/27/17 14:23 36.8 85 16 94/60 (71) 97 Room Air 08/27/17 13:17 80/46 (57) 08/27/17 11:56 36.9 77 17 87/53 (64) 91 Room Air 08/27/17 08:45 85/53 (64) 08/27/17 08:09 90 Room Air 08/27/17 08:04 38.1 88 16 90/54 (66) 90 Room Air 08/27/17 07:20 Room Air 08/27/17 00:00 Room Air 08/26/17 22:56 39.0 91 16 102/65 (77) 91 Room Air 08/26/17 18:00 94 Room Air 08/26/17 18:00 Room Air 08/26/17 17:55 37.6 92 18 156/76 General Appearance: well-appearing, no apparent distress, in pain Head: normocephalic Eyes: PERRLA, EOMI ENT: normal throat exam Neck: normal range of motion, no tenderness, trachea midline, no stridor, supple Respiratory: breath sounds normal, clear to auscultation, no respiratory distress Cardiovasular: regular rate/rhythm, normal S1S2, systolic murmur (2/6 systolic murmur at LLSB) Abdomen: non tender, normal bowel sounds, no rebound, no guarding Upper Extremities: no edema, no deformity Lower Extremities: other (Right and Left BKA. Left BKA with stitches, warm to touch and mild erythema along suture lines. Right BKA without warmth tenderness or pain) Neuro: oriented x 3, normal motor exam, normal sensation, normal speech, other (CN 2-12 without any focal deficits) Laboratory Results Last 24 Hours Test 08/26/17 19:28 08/26/17 20:22 08/26/17 21:35 08/26/17 23:55 White Blood Count 10.96 K/uL Red Blood Count 4.08 M/uL Hemoglobin 11.7 g/dL Hematocrit 35.2 % Mean Corpuscular Volume 86.3 fL Mean Corpuscular Hemoglobin 28.7 pg Mean Corpuscular Hemoglobin Concent 33.2 g/dl RDW Standard Deviation 44.7 fL RDW Coefficient of Variation 14.2 % Platelet Count 220 K/uL Mean Platelet Volume 9.0 fL Prothrombin Time 11.4 SECONDS Prothromb Time International Ratio 1.1 Sodium Level 131 mmol/L Potassium Level 3.6 mmol/L Chloride Level 98 mmol/L Carbon Dioxide Level 25 mmol/L Anion Gap 8.0 mmol/L Blood Urea Nitrogen 16 mg/dl Creatinine 0.78 mg/dl Est Creatinine Clear Calc Drug Dose 90.3 ml/min Estimated GFR () 103.5 Estimated GFR (Non- 89.3 BUN/Creatinine Ratio 20.1 Random Glucose 297 mg/dl Calcium Level 8.7 mg/dl Total Bilirubin 0.9 mg/dl Aspartate Amino Transf (AST/SGOT) 8 U/L Alanine Aminotransferase (ALT/SGPT) 16 U/L Alkaline Phosphatase 102 U/L Total Protein 7.1 gm/dl Albumin 3.1 gm/dl Globulin 4.0 gm/dl Albumin/Globulin Ratio 0.8 Bedside Glucose 298 mg/dl 164 mg/dl Urine Color ORANGE Urine Appearance CLOUDY Urine pH 5.0 Urine Specific [place] 1.034 Urine Protein 1+ Urine Glucose (UA) 3+ Urine Ketones TRACE Urine Occult Blood NEG Urine Nitrite POS Urine Bilirubin NEG Urine Urobilinogen NEG Urine Leukocyte Esterase TRACE Urine WBC (Auto) >30 /hpf Urine RBC (Auto) 0-4 /hpf Urine Hyaline Casts (Auto) 0 /lpf Urine Epithelial Cells (Auto) >30 /lpf Urine Bacteria (Auto) NEG Urine Renal Epithelial Cells /lpf Urine Pathogenic Casts /lpf Test 08/27/17 03:39 08/27/17 05:44 08/27/17 07:25 08/27/17 12:12 Bedside Glucose 236 mg/dl 218 mg/dl 234 mg/dl White Blood Count 11.67 K/uL Red Blood Count 3.75 M/uL Hemoglobin 10.5 g/dL Hematocrit 32.8 % Mean Corpuscular Volume 87.5 fL Mean Corpuscular Hemoglobin 28.0 pg Mean Corpuscular Hemoglobin Concent 32.0 g/dl Platelet Count 253 K/uL Mean Platelet Volume 9.1 fL Neutrophils (%) (Auto) 73.3 % Lymphocytes (%) (Auto) 13.4 % Monocytes (%) (Auto) 11.9 % Eosinophils (%) (Auto) 0.9 % Basophils (%) (Auto) 0.2 % Neutrophils # (Auto) 8.55 K/uL Lymphocytes # (Auto) 1.56 K/uL Monocytes # (Auto) 1.39 K/uL Eosinophils # (Auto) 0.11 K/uL Basophils # (Auto) 0.02 K/uL RDW Standard Deviation 46.8 fL RDW Coefficient of Variation 14.5 % Immature Granulocyte % (Auto) 0.3 % Immature Granulocyte # (Auto) 0.04 K/uL Sodium Level 132 mmol/L Potassium Level 3.6 mmol/L Chloride Level 97 mmol/L Carbon Dioxide Level 26 mmol/L Anion Gap 9.0 mmol/L Blood Urea Nitrogen 22 mg/dl Creatinine 2.20 mg/dl Est Creatinine Clear Calc Drug Dose 32.0 ml/min Estimated GFR () 29.5 Estimated GFR (Non- 25.5 BUN/Creatinine Ratio 10.0 Random Glucose 221 mg/dl Estimated Average Glucose 278 mg/dl Hemoglobin A1c 11.3 % Calcium Level 8.8 mg/dl Test 08/27/17 13:10 08/27/17 14:22 08/27/17 15:24 Lactic Acid Level 0.9 mmol/L Bedside Glucose 193 mg/dl Sodium Level 134 mmol/L Potassium Level 3.7 mmol/L Chloride Level 101 mmol/L Carbon Dioxide Level 23 mmol/L Anion Gap 10.0 mmol/L Blood Urea Nitrogen 28 mg/dl Creatinine 2.61 mg/dl Est Creatinine Clear Calc Drug Dose 27.0 ml/min Estimated GFR () 24.0 Estimated GFR (Non- 20.7 BUN/Creatinine Ratio 10.8 Random Glucose 228 mg/dl Calcium Level 7.8 mg/dl Assessment & Plan 51 year old female with a PMH of uncontrolled T1DM, CAD, HTN and Bilateral BKA who was admitted to the hospital for left BKA I&D. She had a stroke alert called due to arm weakness, was brought to the ICU for stroke workup and subsequently was hypotensive and started on levophed for pressor support. NEURO cam negative pain control ordered: oxy 5mg prn, oxy 10mg prn, morphine 2mg q2 IV and morphine 30mg PO Q12 stroke alert called CT scan negative MRI and carotid dopplers pending on aspirin and plavix brain and head MRA ordered bilateral carotid ultrasound ordered RESP saturating 97% on room air continue to monitor oxygen saturation CARDIAC on aspirin and plavix no EKG changes noted hypotension with 2L bolus of IV fluids started on IV levophed 0.1 to maintain MAP >65 on ranexa, isosorbide for chest pain at home hold lisinopril due to kidney function ID antibiotics changed from rocephin to linezolid and zosyn blood cultures pending hx of MSSA as outpatient I&D on hold, surgical care with ortho Infectious disease team on board RENAL PAM with creatinine of 2.6, baseline of 1.0 fluid resuscitation with 2L bolus and receiving 150mls/hr of NS continue to monitor bmp bun/creatinine ration 10.7, possible intrarenal pathology as cause of renal failure (medications, rocephin?) hold nephrotoxic medications ENDOCRINE HbA1c was 11.3 today takes 44 units of lantus at home and on ISS bsg's in mid 200's insulin drip to be started this evening to assess insulin needs and for better control hx of hypothyroidism- on synthroid, recommend ordering TSH HEME anemia hgb 10.5, normocytic on ferrous sulfate 325mg wbc 11 today, continue to follow PSYCH xanax prn for anxiety FULL CODE Resident Physician Supervision Note: Dr. Clement was resident physician during care of patient. I separately evaluated patient and did history and exam. I discussed the case with the resident and generally agree with the findings and plan. Reviewed her MRI results, I do not feel that this is a neurologic issue but more likely a indolent infection possible early sepsis. Patient critically ill due to hypotension requiring vasoactive medications I have personally spent 40 minutes of critical care time in the direct management of this patient. This is a life/limb threatening event. This includes time spent evaluating patient, direct bedside care, chart review, placing orders, interpretation of diagnostic studies, discussion with consultants, patient, and family members, as well as other required patient management activities. This time is exclusive of all separately billable procedures, and teaching time and separate from and in addition to any other critical care service time. Documented By: Jared Alicea DO Documented By: Jared Alicea DO
--- NOTE | 2017-08-27 18:26 | DIAGNOSTIC IMAGING REPORT ---
BRAIN WITHOUT CONTRAST HISTORY: Mental status change r/o cava TECHNIQUE: Multiplanar multisequence MRI of the brain was performed without the use of contrast. COMPARISON STUDY: None. FINDINGS: There are no areas of restricted diffusion to suggest acute infarction. The midline structures are intact. The paranasal sinuses are clear. The mastoid air cells are clear. The ventricles and sulci are within normal limits for age. There is no mass, hematoma, midline shift. The major vascular flow-voids at the skull base are well maintained. IMPRESSION: No acute intracranial abnormality. The above report was generated using voice recognition software. It may contain grammatical, syntax or spelling errors. Electronically signed by: Jigar Enciso M.D. 08/27/2017 6:24 PM Dictated Date/Time: 08/27/2017 6:23 PM
--- NOTE | 2017-08-27 18:27 | DIAGNOSTIC IMAGING REPORT ---
CAROTID DOPPLER NECK ART HISTORY: Mental status change r/o cava COMPARISON: None. TECHNIQUE: Real-time, grayscale, and color Doppler sonography of the carotid arteries was performed. Imaging reviewed in the transverse and longitudinal planes. All measurements were calculated based on NASCET criteria. FINDINGS: Antegrade flow is seen in the bilateral vertebral arteries. The brachial pressures are hemodynamically similar. Mild plaque formation bilaterally The peak systolic velocity within the right ICA is 138. The right systolic ratio is 1.38. The peak systolic velocity within the left ICA is 133. The left systolic ratio is 0.98. IMPRESSION: Mild plaque formation bilaterally. 30-40% stenosis of the internal carotid arteries bilaterally. The above report was generated using voice recognition software. It may contain grammatical, syntax or spelling errors. Electronically signed by: Jigar Enciso M.D. 08/27/2017 6:26 PM Dictated Date/Time: 08/27/2017 6:25 PM
[2017-08-27] MEDS: MoRPHine SULFATE 2 MG/ML CARP IV PRN (18:31)
--- NOTE | 2017-08-27 18:32 | DIAGNOSTIC IMAGING REPORT ---
MR ANGIOGRAPHY OF THE [place]ER OF [place] NO CONTRAST CLINICAL HISTORY: New onset left arm weakness. Possible stroke. COMPARISON STUDY: None. A 3-D [id number] MR angiographic sequence of the [place] of [place] was performed. Both the source and projection images were reviewed. There are no lesion suspicious for aneurysm. The left posterior communicating artery is hypoplastic. There is a linear area of decreased signal and mild narrowing within the petrous portion of the left internal carotid artery. This may be artifactual. CT angiography could be obtained in follow-up to determine whether this is a real or artifactual finding. There are no major intracranial branch occlusions. IMPRESSION: 1. No evidence of aneurysm 2. Mild narrowing and area of decreased signal within the petrous portion of the left internal carotid artery. It is possible this represents an artifact. As deemed clinically indicated, CT angiography could be obtained in follow-up to determine with this is a real or artifactual finding. Electronically signed by: Moses Zimmer M.D. 08/27/2017 6:30 PM Dictated Date/Time: 08/27/2017 6:23 PM
[2017-08-27] MEDS: LISINOPRIL 40 MG TAB PO SCH (21:00)
[2017-08-27] MEDS ORDERED: PIPERACILL/TAZOBAC IV 3.375 GM in DEXTROSE 5% 100ML 100 ML IV SCH (22:00)
[2017-08-27] MEDS: INSULIN GLARGINE SOLOSTAR 100 UNITS/ML 3 ML PEN SC SCH (22:12)
[2017-08-28] VITALS (70 sets, daily range): BP systolic 84–160; BP diastolic 51–83; PULSE 69–93; TEMP 36.6–37.5; O2SAT 86–100
[2017-08-28] MEDS ORDERED: PIPERACILL/TAZOBAC IV 4.5 GM in DEXTROSE 5% 100ML IV SCH ×2
[2017-08-28] MEDS: SODIUM CHLORIDE 0.9% 1000ML 1,000 ML IV SCH ×4 (00:42→19:49)
[2017-08-28] MEDS: OXYCODONE HCL IR 5 MG TAB (IMMEDIATE RELEASE) PO PRN ×2 (02:55→12:04)
[2017-08-28] MEDS: LINEZOLID / D5W 600 MG in PREMIXED IN D5W 300 ML IV SCH ×2 (05:22→15:52)
[2017-08-28 05:24] LABS: BASO % 0.1 %; BASO ABS # 0.01 K/uL (0-0.2); COMPLETE YES; EOS % 3.8 %; HEMATOCRIT 28.1 % (37-47); IG% 0.3 %; LYMPH % 16.7 %; LYMPH ABS # 1.29 K/uL (1.2-3.4); MEAN CELL VOLUME 86.5 fL (80-100); MEAN CORPUSCULAR HEMOGLOBIN 28.9 pg (25-34); MEAN CORPUSCULAR HGB CONC 33.5 g/dl (32-36); MEAN PLATELET VOLUME 8.3 fL (7.4-10.4); MONO % 11.3 %; NEUT % 67.8 %; PLATELET COUNT 178 K/uL (130-400); RED BLOOD COUNT 3.25 M/uL (4.2-5.4); WHITE BLOOD COUNT 7.71 K/uL (4.8-10.8)
[2017-08-28] MEDS: MoRPHine SULFATE 2 MG/ML CARP IV PRN (05:29)
[2017-08-28 05:51] LABS: BUN/CREATININE RATIO 15.2 (10-20); CALCIUM 8.2 mg/dl (8.5-10.1); CREATININE 1.23 mg/dl (0.60-1.20); MAGNESIUM 1.9 mg/dl (1.8-2.4); PHOSPHORUS 2.8 mg/dl (2.5-4.9); POTASSIUM 3.3 mmol/L (3.5-5.1)
[2017-08-28] MEDS: LEVOTHYROXINE 112 MCG TAB PO SCH (06:28)
[2017-08-28] MEDS ORDERED: INSULIN PROTOCOL GOAL RANGE ONE (07:45)
[2017-08-28] MEDS: CHOLECALCIFEROL 1000 INTER.UNIT TAB PO SCH (07:55)
[2017-08-28] MEDS: FERROUS SULFATE 325 MG TAB PO SCH ×2 (07:56→16:30)
[2017-08-28] MEDS: RANOLAZINE 500 MG ER TAB PO SCH ×2 (07:56→20:52)
[2017-08-28] MEDS: ISOSORBIDE MONONITRATE 60 MG TABCR PO SCH ×2 (07:57→20:52)
[2017-08-28] MEDS: INSULIN ASPART 100 UNITS/ML 3 ML PEN SC SCH ×4 (08:00→20:41)
[2017-08-28] MEDS: INSULIN GLARGINE SOLOSTAR 100 UNITS/ML 3 ML PEN SC SCH ×2 (08:01→21:04)
[2017-08-28] MEDS: ALPRAZOLAM 0.5 MG TAB PO SCH ×3 (08:02→20:52)
[2017-08-28] MEDS: MoRPHine SULFATE CR 15 MG TAB (MS CONTIN) PO SCH ×2 (08:02→20:52)
[2017-08-28] MEDS ORDERED: PERFLUTREN LIPID MICROSPHERE (DEFINITY) IV ONE (09:45)
[2017-08-28] MEDS ORDERED: CLINDAMYCIN IV 900 MG in DEXTROSE 5% 100ML 100 ML IV SCH (10:00)
[2017-08-28] MEDS: POTASSIUM CHLORIDE 20 MEQ TABCR PO SCH ×2 (10:43→20:52)
[2017-08-28] MEDS: PIPERACILL/TAZOBAC IV 4.5 GM in DEXTROSE 5% 100ML IV SCH ×2 (10:44→17:21)
--- NOTE | 2017-08-28 11:40 | Orthopedic Progress Note ---
Orthopedic Progress Note Date of Service Aug 28, 2017. Subjective Denies: chest pain, SOB, nausea / vomiting, light headedness Additional Notes: States left arm feeling improved without any continued weakness. Conversant and pleasant. Aware of improved condition. Objective capillary refill less than 2 sec., incision C/D/I, A&O x3 LE incision line intact with sutures. Continued erythema and anterolateral LE swelling/fluctuance. Cap refill <2 sec. Slight proximal streaking. Date Time Temp Pulse Resp B/P (MAP) Pulse Ox O2 Delivery O2 Flow Rate FiO2 08/28/17 09:16 77 18 104/60 (75) 98 08/28/17 09:01 80 10 149/79 (102) 98 08/28/17 09:00 82 16 99 08/28/17 08:46 75 18 107/65 (79) 98 08/28/17 08:31 76 10 113/62 (79) 97 08/28/17 08:30 78 19 86 08/28/17 08:17 36.6 79 18 112/64 (80) 95 Room Air 08/28/17 08:01 73 17 100/58 (72) 90 08/28/17 08:00 74 17 90 08/28/17 07:46 74 11 100/58 (72) 91 08/28/17 07:40 Room Air 08/28/17 07:31 75 18 95/51 (66) 90 08/28/17 07:30 74 17 92 08/28/17 07:17 77 15 84/54 (64) 93 08/28/17 07:01 76 13 120/68 (85) 94 08/28/17 07:00 76 15 96 08/28/17 06:00 79 15 136/67 (90) 96 Nasal Cannula 3.0 08/28/17 06:00 79 15 96 08/28/17 05:00 70 13 97 08/28/17 04:00 69 22 99/56 94 08/28/17 04:00 Room Air 08/28/17 04:00 37.0 69 22 99/56 (70) 94 Room Air 08/28/17 03:00 88 15 97 08/28/17 02:00 83 20 121/61 (81) 95 Nasal Cannula 3.0 08/28/17 02:00 83 20 121/61 95 08/28/17 01:00 77 13 131/70 97 08/28/17 00:01 37.1 71 17 96/56 (69) 92 Nasal Cannula 3.0 08/28/17 00:01 71 17 96/56 (65) 92 08/27/17 23:59 Room Air 08/27/17 23:00 70 19 99/57 94 08/27/17 22:53 Room Air 08/27/17 22:00 74 19 89/51 99 08/27/17 22:00 74 19 89/51 (64) 99 Nasal Cannula 3.0 08/27/17 21:00 75 19 111/59 99 08/27/17 20:00 37.0 77 23 105/57 (73) 100 Nasal Cannula 3.0 08/27/17 20:00 77 23 105/57 100 08/27/17 19:00 82 18 129/78 (95) 99 Room Air 08/27/17 19:00 82 18 129/78 99 08/27/17 16:16 75 22 93/52 (66) 08/27/17 16:15 73 14 08/27/17 16:11 74 14 90/52 (65) 08/27/17 16:06 73 17 90/57 (68) 08/27/17 16:01 73 12 91/48 (62) 08/27/17 16:00 71 24 08/27/17 16:00 Nasal Cannula 3.0 08/27/17 15:56 73 16 91/54 (66) 08/27/17 15:51 76 17 91/52 (65) 08/27/17 15:46 72 12 84/46 (59) 08/27/17 15:45 73 18 08/27/17 15:41 72 17 67/33 (44) 08/27/17 15:36 74 11 90/50 (63) 08/27/17 15:31 75 17 75/40 (52) 08/27/17 15:30 75 21 08/27/17 15:26 75 17 80/51 (61) 08/27/17 15:21 74 15 76/44 (55) 08/27/17 15:16 77 16 82/46 (58) 08/27/17 15:15 80 13 08/27/17 15:11 76 12 77/47 (57) 08/27/17 14:23 36.8 85 16 94/60 (71) 97 Room Air 08/27/17 13:17 80/46 (57) 08/27/17 11:56 36.9 77 17 87/53 (64) 91 Room Air Laboratory Results 24 Hours: Test 08/28/17 05:13 White Blood Count 7.71 K/uL Red Blood Count 3.25 M/uL Hemoglobin 9.4 g/dL Hematocrit 28.1 % Mean Corpuscular Volume 86.5 fL Mean Corpuscular Hemoglobin 28.9 pg Mean Corpuscular Hemoglobin Concent 33.5 g/dl Platelet Count 178 K/uL Mean Platelet Volume 8.3 fL Neutrophils (%) (Auto) 67.8 % Lymphocytes (%) (Auto) 16.7 % Monocytes (%) (Auto) 11.3 % Eosinophils (%) (Auto) 3.8 % Basophils (%) (Auto) 0.1 % Neutrophils # (Auto) 5.23 K/uL Lymphocytes # (Auto) 1.29 K/uL Monocytes # (Auto) 0.87 K/uL Eosinophils # (Auto) 0.29 K/uL Basophils # (Auto) 0.01 K/uL Assessment & Plan Assessment: Residual limb abscess Sepsis-improved Hypotension-stabilized Left UE weakness-improved Plan: Pending approval of Channel Supervisor and Anesthesia services will I and D abscess with implantation Stimulan antibiotic beads later today. NPO Site marked and consent signed with all questions answered.
--- NOTE | 2017-08-28 11:43 | DIAGNOSTIC IMAGING REPORT ---
L FEMUR 2 VIEWS ROUTINE CLINICAL HISTORY: pain steak ing pain. Edema. COMPARISON: 07/31/2017 DISCUSSION: Femur specifically is remarkable for moderate degenerative change. Mild soft tissue edema is present. Continues to be soft tissue air inferior and anterior to the knee. This is similar as compared to the prior routine images. A bony destructive process is not present. Bony mineralization overall somewhat diminished. IMPRESSION: Moderate degenerative change of the femur with no acute bony abnormality. 2. Soft tissue edematous change. 3. Soft tissue air anterior to the knee similar compared to the prior study. 4. This again raises the possibility of soft tissue air producing infection. 5. No evidence for bony destructive change. The above report was generated using voice recognition software. It may contain grammatical, syntax or spelling errors. Electronically signed by: Jigar Enciso M.D. 08/28/2017 11:42 AM Dictated Date/Time: 08/28/2017 11:39 AM
[2017-08-28] MEDS: PROMETHAZINE HCL 25 MG TAB PO PRN (12:00)
--- NOTE | 2017-08-28 12:07 | Critical Care Progress Note ---
Critical Care Progress Note Date of Service Aug 28, 2017. ICU Day ICU Day Number: [address] Alicea Subjective 08/26/2017 51 year old female with a PMH of uncontrolled T1DM, CAD, HTN and Bilateral BKA with several I&D of left BKA who came to the hospital due to worsening pain of left leg as well as ongoing fevers and chills. She had blood cultures obtained, lab work drawn and she was placed on IV rocephin with plan to go to the operating room with left bka incision and drainage. She was febrile overnight with a tmx of 39. 08/27/2017 This morning at the bedside she appeared pale and drowsy according to the primary team and she was given a 1L bolus and had a lactic acid ordered which was within normal limits. At 2pm a stroke alert was called as the patient complained of a weak right arm. She had an emergent CT scan of her head which was normal. Patient was transferred to the ICU. Dr. De La Cruz was consulted via telestroke cart and TPA was not recommended due to the last well known being > 3.5 hours and he believed that her symptoms were hypotension related. In the ICU the patient remained hypotensive with blood pressure in the 70's/30's therefore norepinephrine was started at .1 to maintain a MAP >65. She had the IV team insert two peripheral IV lines and the patient was taken for an MRI for further evaluation of her stroke like symptoms. With regards to her ongoing BKA infection she has been following with infectious disease. On August 01 she grew MSSA and she had been on rocephin as an outpatient. Her antibiotics today were switched from rocephin to linezolid and zosyn and she has blood cultures pending. Her diabetes mellitus is poorly controlled and her HbA1c done in the hospital was 11.3. Patient was seen at the bedside at 625 pm after MRI imaging. Patient was complaining of 9/10 left lower leg pain. She still was having weakness in her left hand, she had decreased sensation up to her left elbow and was having numbness and tingling down her left arm. 08/28/2017 Brain MRI reviewed and within normal limits. MRA of head showed mild narrowing within petrous portion of left internal carotid artery. Patients left arm weakness much improved since yesterday. Still with mild weakness, numbness/ tingling on left arm up to the elbow on the left side. She denies any neck pain or stiffness and no worsening of symptoms with turning of her head. Her left leg appears to have worsening streaking up the medial aspect of her left leg. She is having worsening pain of her leg. Her leg is very tender to palpation and is warm to touch. The patient was started on clindamycin IV and 2 view xray of left femur was ordered which showed continuos soft tissue air inferior and anterior to the knee as well as soft tissue edema. Dr. Ramos was contacted at 9:30 am and a message was left with his executive legal secretary. He phoned Dr. Alicea shortly after and came to evaluate the patient. It was decided that the patient would go to surgery this afternoon for incision and exploration of the patients left leg due to concern for necrotizing fasciitis vs lymphangiitis of the leg. Overnight the patient had levophed for pressure support. It was turned off this morning and pressors have remained adequate. She also had her insulin drip turned off overnight and her blood sugars have been well controlled. This morning the patient was complaining of left leg pain that she rated as a 9/ 10. She also said that she felt cold but denied any fevers. She denies any nausea, vomiting, chest pain, shortness of breath cough, abdominal pain, nausea , vomiting, visual changes, headaches, difficulty swallowing, facial droop, leg weakness, leg numbness or tingling. Current SOFA Score SOFA Score Response (Comments) Value Platelets (x10) > 150 0 Bilirubin (mg/dL) < 1.2 0 [place] Coma Score 15 0 Level of Hypotension No Hypotension 0 Creatinine (mg/dL) 1.2 - 1.9 1 Total 1 Assessment & Plan 51 year old female with a PMH of uncontrolled T1DM, CAD, HTN and Bilateral BKA who was admitted to the hospital for left BKA I&D. She had a stroke alert called due to arm weakness, was brought to the ICU for stroke workup and subsequently was hypotensive and started on levophed for pressor support. Overnight the patient has had worsening streaking of infection up the medial aspect of her left leg. Will be taken to surgery with Dr. Ramos this afternoon NEURO cam negative pain control ordered: oxy 5mg prn, oxy 10mg prn, and morphine 30mg PO Q12 CT scan negative, MRI negative MRA with mild narrowing of petrous portion of left internal carotid carotid dopplers with 20-30% narrowing on aspirin and plavix RESP saturating 97% on room air continue to monitor oxygen saturation CARDIAC on aspirin and plavix no EKG changes noted levophed stopped this morning with MAP maintaine >65 echo ordered on ranexa, isosorbide for chest pain at home hold lisinopril due to kidney function ID worsening streaking up left leg and worsening pain concern for necrotizing fasciitis, clinda IV added femur xray showed soft tissue air anterior to left knee continue linezolid and zosyn blood cultures pending hx of MSSA as outpatient ortho consulted - taking patient for I&D this afternoon RENAL PAM resolved with creatinine 1.23 this morning, baseline of 1.0 fluid resuscitation with 2L bolus and receiving 150mls/hr of NS continue to monitor bmp potassium 3.3, will supplement with 40meq of potassium bid hold nephrotoxic medications ENDOCRINE HbA1c was 11.3 takes 44 units of lantus at home and on ISS, continue these as inpatient bsg's in mid 200's yesterday insulin drip started yesterday evening and stopped this morning as bsg's well controlled hx of hypothyroidism- on synthroid, TSH and T4 ordered serum cortisol ordered HEME anemia hgb 9.4, normocytic, anemia likely dilutional due to patient receiving IV fluids on ferrous sulfate 325mg wbc decreased to 7.7, continue to follow PSYCH xanax prn for anxiety FULL CODE NPO for surgery this afternoon Resident Physician Supervision Note: Dr. Clement was resident physician during care of patient. I separately evaluated patient and did history and exam. I discussed the case with the resident and generally agree with the findings and plan. During sign out, it was reported that the patient was titrated off vasoactive medications however the vasoactive medications had to be restarted approximately 5 AM this morning.. Minimal improvement in the patient's renal function as well as improvement in her numbness and tingling however not complete resolution at this time. I reviewed the MRI findings. During my evaluation the patient felt that she was tired and not doing great. She reported pain in the left lower extremity. Upon examination she appears to have lymphangitis to the mid thigh without melba crepitance. I have reviewed a plain film of the left lower extremity as well as reviewed the radiology report. There is no change in the subcutaneous air. I am concerned about the possibility of a necrotizing fasciitis I subsequently discussed the case with Dr. Ramos. Additionally I have added clindamycin to the patient's antibiotic regimen. Currently the patient is anticipated to go to the OR, she is been placed nothing by mouth status. I have personally spent 50 minutes of critical care time in the direct management of this patient. This is a life/limb threatening event. This includes time spent evaluating patient, direct bedside care, chart review, placing orders, interpretation of diagnostic studies, discussion with consultants, patient, and family members, as well as other required patient management activities. This time is exclusive of all separately billable procedures, and teaching time and separate from and in addition to any other critical care service time. Documented By: Jared Alicea DO Consults & Procedures Consultants: Dr. Nixon Steele Procedures: going for I&D this afternoon Data Medications: Current Inpatient Medications Medications (Trade) Dose Ordered Sig/Ochoa Route Start Time Stop Time Status Last Admin Dose Admin Acetaminophen (Tylenol Tab) 650 mg Q6H PRN PO 08/26/17 19:00 09/25/17 18:59 Diphenhydramine HCl (Benadryl Inj) 25 mg Q8 PRN IV 08/26/17 19:00 09/25/17 18:59 Ondansetron HCl (Zofran Inj) 4 mg Q6H PRN IV 08/26/17 19:00 09/25/17 18:59 08/27/17 05:50 4 MG Alprazolam (Xanax Tab) 1 mg TID PO 08/26/17 21:00 09/25/17 20:59 08/28/17 08:02 1 MG Famotidine (Pepcid Tab) 20 mg HS PRN PO 08/26/17 19:15 09/25/17 19:14 Ferrous Sulfate (Feosol Tab) 325 mg BIDM PO 08/27/17 08:30 09/26/17 08:29 08/28/17 07:56 325 MG Isosorbide Mononitrate (Imdur Ext Rel Tab) 60 mg BID PO 08/26/17 21:00 09/25/17 20:59 08/28/17 07:57 60 MG Levothyroxine Sodium (Synthroid Tab) 112 mcg DAILYBB PO 08/27/17 06:00 09/26/17 05:59 08/28/17 06:28 112 MCG Lisinopril (Zestril Tab) 40 mg HS PO 08/26/17 21:00 09/25/17 20:59 Future Hold 08/26/17 21:24 40 MG Promethazine HCl (Phenergan Tab) 25 mg Q6 PRN PO 08/26/17 19:15 09/25/17 19:14 08/27/17 00:08 25 MG Senna/Docusate Sodium (Senokot S Tab) 2 tab HS PRN PO 08/26/17 19:15 09/25/17 19:14 Cholecalciferol (Vitamin D Tab) 1,000 inter.unit DAILY PO 08/27/17 09:00 09/26/17 08:59 08/28/17 07:55 1,000 INTER.UNIT Morphine Sulfate (Oramorph Sr Tab) 30 mg Q12 PO 08/26/17 21:00 09/09/17 20:59 08/28/17 08:02 30 MG Ranolazine (Ranexa ER Tab) 1,000 mg BID PO 08/26/17 21:00 09/25/17 20:59 08/28/17 07:56 1,000 MG Oxycodone HCl (Roxicodone Immediate Rel Tab) 5 mg Q4 PRN PO 08/26/17 19:15 09/09/17 19:14 Oxycodone HCl (Roxicodone Immediate Rel Tab) 10 mg Q4 PRN PO 08/26/17 19:15 09/09/17 19:14 08/28/17 02:55 10 MG Miscellaneous Information (Consult Glycemic Management Pharmacy) 1 ea UD PRN N/A 08/26/17 20:01 09/25/17 20:00 Hydromorphone HCl (Dilaudid Inj) 2 mg Q4H PRN IV 08/26/17 20:00 09/09/17 19:59 08/27/17 12:29 2 MG Glucose (Glucose 40% Gel) 15-30 GRAMS 15 GRAMS... UD PRN PO 08/26/17 21:00 09/25/17 20:59 Glucose (Glucose Chew Tab) 4-8 Tablets 4 Tabl... UD PRN PO 08/26/17 21:00 09/25/17 20:59 Dextrose (Dextrose 50% 50ML Syringe) 25-50ML OF 50% DW IV FOR... UD PRN IV 08/26/17 21:00 09/25/17 20:59 Glucagon (Glucagon Inj) 1 mg UD PRN SQ 08/26/17 21:00 09/25/17 20:59 Heparin Sodium (Porcine) (Heparin 100 Unit/ml 5ml Flush) 5 ml PRN PRN IV 08/26/17 21:15 09/25/17 21:14 08/27/17 05:50 5 ML Sodium Chloride 1,000 ml @ 150 mls/hr Q6H40M IV 08/27/17 07:15 09/26/17 07:14 08/28/17 07:57 150 MLS/HR Linezolid 600 mg/ Prmx 300 ml @ 300 mls/hr Q12@0400,1600 IV 08/27/17 16:00 09/06/17 15:59 08/28/17 05:22 300 MLS/HR Norepinephrine Bitartrate 8 mg/ Dextrose 508 ml @ 0 mls/hr Q0M IV 08/27/17 15:45 09/26/17 15:44 08/27/17 16:18 30.7 MLS/HR Insulin Glargine (Lantus Solostar Pen) 25 units BID SC 08/27/17 21:00 09/26/17 20:59 08/28/17 08:01 25 UNITS Piperacillin Sod/ Tazobactam Sod (Consult) 1 ea UD PRN N/A 08/27/17 16:30 09/26/17 16:29 Miscellaneous Information (Dc Iv Insulin Infusion) 1 ea 08/28/17@1500 ONCE N/A 08/28/17 15:00 08/28/17 15:01 Insulin Aspart (novoLOG ASPART) SLIDING SCALE If CARB RA... ACHS SC 08/28/17 11:00 09/27/17 10:59 Potassium Chloride (Klor-Con Tab) 40 meq BID PO 08/28/17 10:00 08/28/17 21:01 08/28/17 10:43 40 MEQ Clindamycin Phosphate 900 mg/ Dextrose 106 ml @ 100 mls/hr Q8H IV 08/28/17 10:00 08/30/17 09:59 08/28/17 10:44 100 MLS/HR Piperacillin Sod/ Tazobactam Sod 4.5 gm/Dextrose 120 ml @ 30 mls/hr Q8H IV 08/28/17 10:00 09/07/17 00:00 08/28/17 10:44 30 MLS/HR Vital Signs: Date Time Temp Pulse Resp B/P (MAP) Pulse Ox O2 Delivery O2 Flow Rate FiO2 08/28/17 09:16 77 18 104/60 (75) 98 08/28/17 09:01 80 10 149/79 (102) 98 08/28/17 09:00 82 16 99 08/28/17 08:46 75 18 107/65 (79) 98 08/28/17 08:31 76 10 113/62 (79) 97 08/28/17 08:30 78 19 86 08/28/17 08:17 36.6 79 18 112/64 (80) 95 Room Air 08/28/17 08:01 73 17 100/58 (72) 90 08/28/17 08:00 74 17 90 08/28/17 07:46 74 11 100/58 (72) 91 08/28/17 07:40 Room Air 08/28/17 07:31 75 18 95/51 (66) 90 08/28/17 07:30 74 17 92 08/28/17 07:17 77 15 84/54 (64) 93 08/28/17 07:01 76 13 120/68 (85) 94 08/28/17 07:00 76 15 96 08/28/17 06:00 79 15 136/67 (90) 96 Nasal Cannula 3.0 08/28/17 06:00 79 15 96 08/28/17 05:00 70 13 97 08/28/17 04:00 69 22 99/56 94 08/28/17 04:00 Room Air 08/28/17 04:00 37.0 69 22 99/56 (70) 94 Room Air 08/28/17 03:00 88 15 97 08/28/17 02:00 83 20 121/61 (81) 95 Nasal Cannula 3.0 08/28/17 02:00 83 20 121/61 95 08/28/17 01:00 77 13 131/70 97 08/28/17 00:01 37.1 71 17 96/56 (69) 92 Nasal Cannula 3.0 08/28/17 00:01 71 17 96/56 (65) 92 08/27/17 23:59 Room Air 08/27/17 23:00 70 19 99/57 94 08/27/17 22:53 Room Air 08/27/17 22:00 74 19 89/51 99 08/27/17 22:00 74 19 89/51 (64) 99 Nasal Cannula 3.0 08/27/17 21:00 75 19 111/59 99 08/27/17 20:00 37.0 77 23 105/57 (73) 100 Nasal Cannula 3.0 08/27/17 20:00 77 23 105/57 100 08/27/17 19:00 82 18 129/78 (95) 99 Room Air 08/27/17 19:00 82 18 129/78 99 08/27/17 16:16 75 22 93/52 (66) 08/27/17 16:15 73 14 08/27/17 16:11 74 14 90/52 (65) 08/27/17 16:06 73 17 90/57 (68) 08/27/17 16:01 73 12 91/48 (62) 08/27/17 16:00 71 24 08/27/17 16:00 Nasal Cannula 3.0 08/27/17 15:56 73 16 91/54 (66) 08/27/17 15:51 76 17 91/52 (65) 08/27/17 15:46 72 12 84/46 (59) 08/27/17 15:45 73 18 08/27/17 15:41 72 17 67/33 (44) 08/27/17 15:36 74 11 90/50 (63) 08/27/17 15:31 75 17 75/40 (52) 08/27/17 15:30 75 21 08/27/17 15:26 75 17 80/51 (61) 08/27/17 15:21 74 15 76/44 (55) 08/27/17 15:16 77 16 82/46 (58) 08/27/17 15:15 80 13 08/27/17 15:11 76 12 77/47 (57) 08/27/17 14:23 36.8 85 16 94/60 (71) 97 Room Air 08/27/17 13:17 80/46 (57) 08/27/17 11:56 36.9 77 17 87/53 (64) 91 Room Air Laboratory Results: Last 24 Hours Test 08/27/17 12:12 08/27/17 13:10 08/27/17 14:22 08/27/17 15:24 Bedside Glucose 234 mg/dl 193 mg/dl Lactic Acid Level 0.9 mmol/L Sodium Level 134 mmol/L Potassium Level 3.7 mmol/L Chloride Level 101 mmol/L Carbon Dioxide Level 23 mmol/L Anion Gap 10.0 mmol/L Blood Urea Nitrogen 28 mg/dl Creatinine 2.61 mg/dl Est Creatinine Clear Calc Drug Dose 27.0 ml/min Estimated GFR () 24.0 Estimated GFR (Non- 20.7 BUN/Creatinine Ratio 10.8 Random Glucose 228 mg/dl Calcium Level 7.8 mg/dl Test 08/28/17 01:19 08/28/17 04:39 08/28/17 05:13 08/28/17 05:44 Bedside Glucose (other) 166 mg/dl 109 mg/dl 118 mg/dl White Blood Count 7.71 K/uL Red Blood Count 3.25 M/uL Hemoglobin 9.4 g/dL Hematocrit 28.1 % Mean Corpuscular Volume 86.5 fL Mean Corpuscular Hemoglobin 28.9 pg Mean Corpuscular Hemoglobin Concent 33.5 g/dl Platelet Count 178 K/uL Mean Platelet Volume 8.3 fL Neutrophils (%) (Auto) 67.8 % Lymphocytes (%) (Auto) 16.7 % Monocytes (%) (Auto) 11.3 % Eosinophils (%) (Auto) 3.8 % Basophils (%) (Auto) 0.1 % Neutrophils # (Auto) 5.23 K/uL Lymphocytes # (Auto) 1.29 K/uL Monocytes # (Auto) 0.87 K/uL Eosinophils # (Auto) 0.29 K/uL Basophils # (Auto) 0.01 K/uL RDW Standard Deviation 45.3 fL RDW Coefficient of Variation 14.2 % Immature Granulocyte % (Auto) 0.3 % Immature Granulocyte # (Auto) 0.02 K/uL Sodium Level 138 mmol/L Potassium Level 3.3 mmol/L Chloride Level 105 mmol/L Carbon Dioxide Level 25 mmol/L Anion Gap 8.0 mmol/L Blood Urea Nitrogen 19 mg/dl Creatinine 1.23 mg/dl Est Creatinine Clear Calc Drug Dose 57.3 ml/min Estimated GFR () 59.6 Estimated GFR (Non- 51.5 BUN/Creatinine Ratio 15.2 Random Glucose 109 mg/dl Calcium Level 8.2 mg/dl Phosphorus Level 2.8 mg/dl Magnesium Level 1.9 mg/dl Test 08/28/17 08:58 Thyroid Stimulating Hormone (TSH) 1.620 uIu/ml Thyroxine (T4) 5.5 mcg/dl Random Cortisol 17.17 mcg/dl
--- NOTE | 2017-08-28 12:18 | Pharmacy Progress Note ---
Glycemic Control Progress Note Date of Service Aug 28, 2017. Scope Glycemic Pharmacist consulted for glycemic control to write orders per [facility] ED inpatient glycemic control protocol. Objective Accuchecks BSG (last 24hrs): Test 08/27/17 12:12 08/27/17 14:22 08/27/17 15:24 08/28/17 05:13 Bedside Glucose 234 mg/dl (70-90) 193 mg/dl (70-90) Random Glucose 228 mg/dl (70-99) 109 mg/dl (70-99) Test 08/28/17 11:49 Bedside Glucose 142 mg/dl (70-90) HbA1c: Test 08/27/17 05:44 Hemoglobin A1c 11.3 % (4.5-5.6) H Outpatient Anti-Diabetic Meds Toujeo {insulin glargine U-300} 44 units in AM + 22 units in PM Humalog with meals {if she can get samples} Assessment & Plan ASSESSMENT: * See progress note from 08/26, 08/27 for more background info, in short: * Pt is well known to pharmacy service from previous admissions/glycemic consults * Pt receiving IV insulin infusion + SQ basal bolus insulin regimen for hyperglycemia secondary to baseline DM (outpatient regimen is SQ basal bolus), stress/infection,pressors, dextrose IVF, * Pt Transferred to ICU secondary to hypotension/stroke alert yesterday. IV insulin infusion was started per protocol for sustained hyperglycemia. IV insulin infusion was to serve as correctional insulin for stress hyperglycemia. SQ basal bolus insulin regimen was continued with IV insulin infusion to supply basal/prandial needs. * BSGs 166, 118, 109, 142 --> IV insulin infusion stopped this morning. Reduced SQ basal bolus insulin regimen is being continued for NPO. PLAN: * D/C IV insulin infusion this AM per pharmacometrician. Continue SQ basal bolus insulin regimen below. * Basal insulin * Lantus 25 units SQ BID * Bolus insulin * NovoLog Q6hrs during the day per [employer]. * Goal Range = 100-180mg/dl * CF = 20mg/dl/unit * CR = 1 unit for every 10g CHO consumed * Please note that the plan above was derived based on current level of insulin resistance and hospital stress. These recommendations are appropriate for inpatient admission only. Plan of care upon discharge will need to be reassessed to avoid potential outpatient hypo/hyperglycemia. Thank you.
--- NOTE | 2017-08-28 12:35 | ECHOCARDIOGRAM REPORT ---
*NOTICE TO RECEIVING DEMOCRAT AGENCY This information is strictly Confidential and protected under [place] law. [place] law prohibits you from making any further disclosure of this information unless further disclosure is expressly permitted by the written consent of the person to whom it pertains or is authorized by law. A general authorization for the release of medical or other information is not sufficient for this purpose. Hospital accepts no responsibility if the information is made available to any other person, INCLUDING THE PATIENT. Interpretation Summary * Name: JIMMY DEL RIO Study Date: 08/28/2017 09:26 AM BP: 136/67 mmHg * Patient Location: .MSICU\S\E103\S\1 HR: 79 * : 1965 (M/d/yyyy) Gender: Female Height: 64 in * Age: 51 yrs Ethnicity: CA Weight: 184 lb * Ordering Physician: Jared Alicea * Referring Physician: Dom Ramos D.O. * Performed By: Marlen Padgett RDCS * * Reason For Study: HYPOTENSION * BSA: 1.9 m2 * -- Conclusions -- * 1. Normal LV size. Mild concentric LVH. * 2. Normal LV systolic function. LVEF 65-70%. No regional wall motion abnormalities. * 3. Normal RV size and function. * 4. No significant valvular pathology. * 5. No prior studies for comparison. Procedure Details * A complete two-dimensional transthoracic echocardiogram was performed (2D, M-mode, Doppler and color flow Doppler). * A contrast injection of Definity was performed to improve assessment of LV function. * Contrast was injected into an intravenous site in the left arm. * One vial of Definity ultrasound contrast was diluted in normal saline to a total volume of 10 ml. A total of '3' ml of solution was administered during imaging. * Lot # [id number] of Definity utilized for procedure. * Expiration date 08/18. * The attending nurse who injected the contrast agent was LAWRENCE HALE RN. Left Ventricle * The left ventricle is grossly normal size. * There is mild concentric left ventricular hypertrophy. * Ejection Fraction = 65-70%. * No regional wall motion abnormalities noted. Right Ventricle * The right ventricle is not well visualized. * The right ventricle is grossly normal size. * The right ventricular systolic function is qualitatively normal. Atria * The left atrium is not well visualized. * Right atrium not well visualized. * No ASD detected; PFO is not assessed. Mitral Valve * The mitral valve is grossly normal. * There is mild mitral annular calcification. * There is no mitral valve stenosis. * Significant mitral regurgitation is absent. Tricuspid Valve * The tricuspid valve is not well visualized, but is grossly normal. * Significant tricuspid regurgitation is absent. Aortic Valve * The aortic valve opens well. * The aortic valve is trileaflet. * No hemodynamically significant valvular aortic stenosis. * There is no significant aortic regurgitation. Pulmonic Valve * The pulmonary valve is inadequately visualized, but the Doppler data is adequate for interpretation. * Pulmonic stenosis is absent. * Trace pulmonic valvular regurgitation. Great Vessels * The aortic root and proximal ascending aorta are normal sized. Pericardium/Pleural * There is no pericardial effusion. Great Vessels * Normal inferior vena cava size and collapsability with sniff indicates a normal right atrial pressure of 3 mmHg MMode 2D Measurements and Calculations IVSd 1.3 cm IVSs 1.5 cm LVIDd 4.3 cm LVIDs 2.6 cm LVPWd 1.4 cm LVPWs 2.3 cm IVS/LVPW 0.93 FS 39.4 % EDV(Teich) 81.2 ml ESV(Teich) 24.1 ml EF(Teich) 70.3 % EDV(cubed) 77.3 ml ESV(cubed) 17.2 ml EF(cubed) 77.8 % % IVS thick 20.2 % % LVPW thick 68.7 % LV mass(C)d 211.8 grams LV mass(C)dI 112.2 grams/m\S\2 LV mass(C)s 209.0 grams LV mass(C)sI 110.7 grams/m\S\2 SV(Teich) 57.1 ml SI(Teich) 30.2 ml/m\S\2 SV(cubed) 60.1 ml SI(cubed) 31.8 ml/m\S\2 ACS 1.4 cm asc Aorta Diam 3.2 cm LVOT diam 1.9 cm LVOT area 2.8 cm\S\2 LVAd ap4 28.9 cm\S\2 LVLd ap4 8.5 cm EDV(MOD-sp4) 79.5 ml EDV(sp4-el) 82.9 ml LVAs ap4 12.7 cm\S\2 LVLs ap4 7.0 cm ESV(MOD-sp4) 19.4 ml ESV(sp4-el) 19.5 ml EF(MOD-sp4) 75.6 % EF(sp4-el) 76.4 % LVAd ap2 30.9 cm\S\2 LVLd ap2 8.7 cm EDV(MOD-sp2) 91.3 ml EDV(sp2-el) 92.9 ml LVAs ap2 14.6 cm\S\2 LVLs ap2 7.1 cm ESV(MOD-sp2) 25.9 ml ESV(sp2-el) 25.7 ml EF(MOD-sp2) 71.7 % EF(sp2-el) 72.4 % LVLd %diff 2.1 % EDV(MOD-bp) 85.1 ml LVLs %diff 0.67 % ESV(MOD-bp) 22.4 ml EF(MOD-bp) 73.6 % SV(MOD-sp4) 60.1 ml SI(MOD-sp4) 31.8 ml/m\S\2 SV(MOD-sp2) 65.5 ml SI(MOD-sp2) 34.7 ml/m\S\2 SV(MOD-bp) 62.7 ml SI(MOD-bp) 33.2 ml/m\S\2 SV(sp4-el) 63.4 ml SI(sp4-el) 33.6 ml/m\S\2 SV(sp2-el) 67.2 ml SI(sp2-el) 35.6 ml/m\S\2 Doppler Measurements and Calculations MV E max zonia 82.2 cm/sec MV A max zonia 66.1 cm/sec MV E/A 1.2 MV dec time 0.19 sec Ao V2 max 92.3 cm/sec Ao max PG 3.4 mmHg Ao max PG (full) 0.11 mmHg NHI(V,A) 2.8 cm\S\2 NHI(V,D) 2.8 cm\S\2 LV V1 max PG 3.3 mmHg LV V1 max 90.8 cm/sec PA V2 max 76.0 cm/sec PA max PG 2.3 mmHg
--- NOTE | 2017-08-28 12:52 | Progress Note ---
Subjective Date of Service: Aug 28, 2017. Subjective pt has resolution of her left arm weakness, there is a lymphangitic streak to medial thigh, her blood pressure has improved off pressors after volume resuscitation Problem List Medical Problems: (1) Hematoma Status: Acute (2) Leg swelling Status: Acute (3) Osteomyelitis Status: Acute Review of Systems Constitutional: + weakness, + fatigue, No fever, No chills Respiratory: No cough, No shortness of breath Cardiac: No chest pain, No edema Objective Vital Signs Date Time Temp Pulse Resp B/P (MAP) Pulse Ox O2 Delivery O2 Flow Rate FiO2 08/28/17 09:16 77 18 104/60 (75) 98 08/28/17 09:01 80 10 149/79 (102) 98 08/28/17 09:00 82 16 99 08/28/17 08:46 75 18 107/65 (79) 98 08/28/17 08:31 76 10 113/62 (79) 97 08/28/17 08:30 78 19 86 08/28/17 08:17 36.6 79 18 112/64 (80) 95 Room Air 08/28/17 08:01 73 17 100/58 (72) 90 08/28/17 08:00 74 17 90 08/28/17 07:46 74 11 100/58 (72) 91 08/28/17 07:40 Room Air 08/28/17 07:31 75 18 95/51 (66) 90 08/28/17 07:30 74 17 92 08/28/17 07:17 77 15 84/54 (64) 93 08/28/17 07:01 76 13 120/68 (85) 94 08/28/17 07:00 76 15 96 08/28/17 06:00 79 15 136/67 (90) 96 Nasal Cannula 3.0 08/28/17 06:00 79 15 96 08/28/17 05:00 70 13 97 08/28/17 04:00 69 22 99/56 94 08/28/17 04:00 Room Air 08/28/17 04:00 37.0 69 22 99/56 (70) 94 Room Air 08/28/17 03:00 88 15 97 08/28/17 02:00 83 20 121/61 (81) 95 Nasal Cannula 3.0 08/28/17 02:00 83 20 121/61 95 08/28/17 01:00 77 13 131/70 97 08/28/17 00:01 37.1 71 17 96/56 (69) 92 Nasal Cannula 3.0 08/28/17 00:01 71 17 96/56 (65) 92 08/27/17 23:59 Room Air 08/27/17 23:00 70 19 99/57 94 08/27/17 22:53 Room Air 08/27/17 22:00 74 19 89/51 99 08/27/17 22:00 74 19 89/51 (64) 99 Nasal Cannula 3.0 08/27/17 21:00 75 19 111/59 99 08/27/17 20:00 37.0 77 23 105/57 (73) 100 Nasal Cannula 3.0 08/27/17 20:00 77 23 105/57 100 08/27/17 19:00 82 18 129/78 (95) 99 Room Air 08/27/17 19:00 82 18 129/78 99 08/27/17 16:16 75 22 93/52 (66) 08/27/17 16:15 73 14 08/27/17 16:11 74 14 90/52 (65) 08/27/17 16:06 73 17 90/57 (68) 08/27/17 16:01 73 12 91/48 (62) 08/27/17 16:00 71 24 08/27/17 16:00 Nasal Cannula 3.0 08/27/17 15:56 73 16 91/54 (66) 08/27/17 15:51 76 17 91/52 (65) 08/27/17 15:46 72 12 84/46 (59) 08/27/17 15:45 73 18 08/27/17 15:41 72 17 67/33 (44) 08/27/17 15:36 74 11 90/50 (63) 08/27/17 15:31 75 17 75/40 (52) 08/27/17 15:30 75 21 08/27/17 15:26 75 17 80/51 (61) 08/27/17 15:21 74 15 76/44 (55) 08/27/17 15:16 77 16 82/46 (58) 08/27/17 15:15 80 13 08/27/17 15:11 76 12 77/47 (57) 08/27/17 14:23 36.8 85 16 94/60 (71) 97 Room Air 08/27/17 13:17 80/46 (57) Physical Exam General Appearance: WD/WN, + mild distress Eyes: PERRL, EOMI Respiratory/Chest: chest non-tender, lungs clear, normal breath sounds Cardiovascular: regular rate, rhythm, no murmur Abdomen: normal bowel sounds, non tender, soft Extremities: + pertinent finding (there is a lymphatic red steak from left BKA stump to her thigh) Neurologic/Psychiatric: material movers II-XII nml as tested, no motor/sensory deficits, alert, oriented x 3 Laboratory Results Last 24 Hours Test 08/27/17 13:10 08/27/17 14:22 08/27/17 15:24 08/28/17 01:19 Lactic Acid Level 0.9 mmol/L Bedside Glucose 193 mg/dl Sodium Level 134 mmol/L Potassium Level 3.7 mmol/L Chloride Level 101 mmol/L Carbon Dioxide Level 23 mmol/L Anion Gap 10.0 mmol/L Blood Urea Nitrogen 28 mg/dl Creatinine 2.61 mg/dl Est Creatinine Clear Calc Drug Dose 27.0 ml/min Estimated GFR () 24.0 Estimated GFR (Non- 20.7 BUN/Creatinine Ratio 10.8 Random Glucose 228 mg/dl Calcium Level 7.8 mg/dl Bedside Glucose (other) 166 mg/dl Test 08/28/17 04:39 08/28/17 05:13 08/28/17 05:44 08/28/17 08:58 Bedside Glucose (other) 109 mg/dl 118 mg/dl White Blood Count 7.71 K/uL Red Blood Count 3.25 M/uL Hemoglobin 9.4 g/dL Hematocrit 28.1 % Mean Corpuscular Volume 86.5 fL Mean Corpuscular Hemoglobin 28.9 pg Mean Corpuscular Hemoglobin Concent 33.5 g/dl Platelet Count 178 K/uL Mean Platelet Volume 8.3 fL Neutrophils (%) (Auto) 67.8 % Lymphocytes (%) (Auto) 16.7 % Monocytes (%) (Auto) 11.3 % Eosinophils (%) (Auto) 3.8 % Basophils (%) (Auto) 0.1 % Neutrophils # (Auto) 5.23 K/uL Lymphocytes # (Auto) 1.29 K/uL Monocytes # (Auto) 0.87 K/uL Eosinophils # (Auto) 0.29 K/uL Basophils # (Auto) 0.01 K/uL RDW Standard Deviation 45.3 fL RDW Coefficient of Variation 14.2 % Immature Granulocyte % (Auto) 0.3 % Immature Granulocyte # (Auto) 0.02 K/uL Sodium Level 138 mmol/L Potassium Level 3.3 mmol/L Chloride Level 105 mmol/L Carbon Dioxide Level 25 mmol/L Anion Gap 8.0 mmol/L Blood Urea Nitrogen 19 mg/dl Creatinine 1.23 mg/dl Est Creatinine Clear Calc Drug Dose 57.3 ml/min Estimated GFR () 59.6 Estimated GFR (Non- 51.5 BUN/Creatinine Ratio 15.2 Random Glucose 109 mg/dl Calcium Level 8.2 mg/dl Phosphorus Level 2.8 mg/dl Magnesium Level 1.9 mg/dl Thyroid Stimulating Hormone (TSH) 1.620 uIu/ml Thyroxine (T4) 5.5 mcg/dl Random Cortisol 17.17 mcg/dl Test 08/28/17 11:49 Bedside Glucose 142 mg/dl Assessment and Plan 51 yo woman with left BKA here for debridement with ortho of chronically infected stump. Developed hypotension and left arm weakness afternoon of . stroke alert called, no tpa given, supported in icu with volume and pressors , antibiotics changed with ID oversight Left arm weakness, stroke was ruled out by stroke alert and MR imaging, left ICA narrowing does not clinically correlate with symptoms sepsis - lactic acid negative, blood pressure was low, pressors used blood pressure management per ICU Left stump infection, surgery recently 08/01, ID who is consulted - changed abx from Rocephin to linezolid and zosyn Blood cultures pending surgical care per Ortho - will likely have surgery soon Acute on chronic renal failure stage 3, improved with volume and improved blood pressure and perfusion uncontrolled diabetes, insulin gtt Last Hgb A1C= 13.9, currently 11 CAD aspirin and plavix, no ekg changes at this time Hypothyroidism, clinically stable, Cont Synthroid. ICU checking cortisol DVT proph, non chemical with upcoming surgery
[2017-08-28] MEDS ORDERED: LIDOCAINE HCL 2% 2 ML VIAL (20MG/ML) ONE (13:27)
[2017-08-28] MEDS ORDERED: ROCURONIUM BROMIDE 10 MG/ML 5 ML VIAL IV ONE (13:27)
[2017-08-28] MEDS ORDERED: PROPOFOL IV EMULSION 10 MG/ML 20 ML VIAL IV ONE (13:27)
[2017-08-28] MEDS ORDERED: ONDANSETRON INJ 2 MG/ML 2 ML VIAL ONE (13:27)
[2017-08-28] MEDS ORDERED: BACITRACIN 50000 UNIT VIAL ONE (13:51)
[2017-08-28] MEDS ORDERED: FENTANYL CITRATE INJ 50 MCG/1 ML 2 ML VIAL ONE ×2 (13:52→14:46)
[2017-08-28] MEDS ORDERED: FENTANYL CITRATE INJ 50 MCG/1 ML 2 ML VIAL IV PRN (14:00)
[2017-08-28] MEDS ORDERED: ONDANSETRON INJ 2 MG/ML 2 ML VIAL IV PRN (14:00)
[2017-08-28] MEDS ORDERED: EpHEDrine SULFATE INJ 50 MG/ML AMP IV PRN (14:00)
[2017-08-28] MEDS ORDERED: ATROPINE SULFATE 0.1 MG/ML 5ML SYR IV PRN (14:00)
[2017-08-28] MEDS ORDERED: GLYCOPYRROLATE INJ 0.2 MG/ML VIAL ONE (14:03)
[2017-08-28] MEDS ORDERED: NEOSTIGMINE METHYLSULFATE 5 MG/5 ML SYR ONE (14:03)
[2017-08-28] MEDS ORDERED: PHENYLEPHRINE 100MCG/ML 5ML SYR ONE (14:03)
[2017-08-28] MEDS ORDERED: GENTAMICIN SULFATE 40 MG/ML 2 ML VIAL ONE (14:16)
[2017-08-28] MEDS ORDERED: TOBRAMYCIN SULF 1.2 GM VIAL (POWDER) ONE (14:17)
[2017-08-28] MEDS ORDERED: DC IV INSULIN INFUSION ONE (15:00)
--- NOTE | 2017-08-28 15:35 | Anesthesiology Progress Note ---
Anesthesia Post Op Note Date & Time Aug 28, 2017 at 15:34 Vital Signs Vital Signs Past 12 Hours Date Time Temp Pulse Resp B/P (MAP) Pulse Ox O2 Delivery O2 Flow Rate FiO2 08/28/17 12:15 36.8 79 25 96 08/28/17 12:01 76 17 96/52 (67) 97 08/28/17 12:00 77 17 99 08/28/17 11:46 78 18 99/59 (72) 99 08/28/17 11:45 80 10 98 08/28/17 11:31 80 13 114/61 (78) 100 08/28/17 11:30 80 21 97 08/28/17 11:30 Room Air 08/28/17 11:16 77 13 121/73 (89) 98 08/28/17 11:15 77 18 98 08/28/17 11:01 78 17 107/65 (79) 97 08/28/17 11:00 78 19 97 08/28/17 10:46 82 21 122/69 (86) 99 08/28/17 10:45 82 19 99 08/28/17 10:31 80 17 112/61 (78) 98 08/28/17 10:30 80 10 98 08/28/17 10:16 79 17 118/66 (83) 97 08/28/17 10:15 80 15 98 08/28/17 10:01 80 21 118/52 (74) 99 08/28/17 10:00 71 17 99 08/28/17 09:16 77 18 104/60 (75) 98 08/28/17 09:01 80 10 149/79 (102) 98 08/28/17 09:00 82 16 99 08/28/17 08:46 75 18 107/65 (79) 98 08/28/17 08:31 76 10 113/62 (79) 97 08/28/17 08:30 78 19 86 08/28/17 08:17 36.6 79 18 112/64 (80) 95 Room Air 08/28/17 08:01 73 17 100/58 (72) 90 08/28/17 08:00 74 17 90 08/28/17 07:46 74 11 100/58 (72) 91 08/28/17 07:40 Room Air 08/28/17 07:31 75 18 95/51 (66) 90 08/28/17 07:30 74 17 92 08/28/17 07:17 77 15 84/54 (64) 93 08/28/17 07:01 76 13 120/68 (85) 94 08/28/17 07:00 76 15 96 08/28/17 06:00 79 15 136/67 (90) 96 Nasal Cannula 3.0 08/28/17 06:00 79 15 96 08/28/17 05:00 70 13 97 08/28/17 04:00 69 22 99/56 94 08/28/17 04:00 Room Air 08/28/17 04:00 37.0 69 22 99/56 (70) 94 Room Air Notes Mental Status: alert / awake / arousable, participated in evaluation Pt Amnestic to Procedure: Yes Nausea / Vomiting: adequately controlled Pain: adequately controlled Airway Patency, RR, SpO2: stable & adequate BP & HR: stable & adequate Hydration State: stable & adequate Anesthetic Complications: no major complications apparent Pt transported to ICU with O2 and monitors. VSS throughout. Report was given to ICU staff. Care transferred to ICU team.
--- NOTE | 2017-08-28 15:38 | [facility] Post Operative Brief Note ---
Immediate Operative Summary Operative Date Aug 28, 2017. Pre-Operative Diagnosis INFECTED DEEP TISSUE LEFT BKA, ABSCESS LEFT LATERAL LOWER LEG Post-Operative Diagnosis SAME PREOP Procedure(s) Performed 1. REVISION BELOW KNEE AMPUTATION; 2. INCISION AND DRAINAGE ABSCESS LEFT LOWER LEG; 3. APPLICATION ANTIBIOTIC LADEN STIMULAN BEADS Surgeon DR. Jacob JAMES Pipelines Superintendent Surgeon(s) Anabelle WATERS PAC Estimated Blood Loss 20ml Findings SEE DICT Specimens 1 LEFT KNEE INCISION FOR AEROBES, ANAEROBES, GRAM STAIN, CULTURE AND SENSITIVITY Drains HV X 2 Anesthesia GLMA Complication(s) None Disposition Surgical ICU (Stable vitals; weekend coverage)
[2017-08-28] MEDS: HYDROmorphone INJ 2 MG/ML SYR/VIAL IV PRN (17:18)
--- NOTE | 2017-08-28 17:18 | OPERATIVE REPORT ---
DATE OF OPERATION: 08/28/2017 PREOPERATIVE DIAGNOSES: 1. Left lower extremity abscess status post below knee amputation. 2. Deep tissue infection, left lateral lower extremity residual limb. POSTOPERATIVE DIAGNOSES: Same. PROCEDURES: 1. Left revision below knee amputation. 2. Incision and drainage abscess, left lateral lower extremity. 3. Implantation antibiotic laden Stimulan calcium sulfate beads. SURGEON: Dr. Ramos. STAFFING RN: JESSE Russ who was present for patient positioning, sterile prep and drape, management of retractors and instruments. She was present through the critical portions of the case including wound closure, application of sterile dressing and transport of the patient to recovery. ANESTHESIA: General LMA. SPECIMENS: Aerobic, anaerobic, Gram stain. DRAINS: Hemovac x2. COMPLICATIONS: None. BLOOD LOSS: 20 mL. PERTINENT HISTORY: This is a 51-year-old female who has had bilateral below knee amputations with at least 2 revision washouts on the left lower extremity due to recurrent infection. The patient has been most recently treated, late July 2017. She had been doing well and her sutures were close to being going to be removed and then she developed fevers and pain in the left lateral lower extremity. She continued to be on oral antibiotics; however, despite this had worsening pain, warmth, swelling, redness and then recurrent fevers. She was admitted to the hospital for planned incision and drainage and possible revision below knee amputation. The patient then had an episode yesterday, at which point her left arm and upper extremity became somewhat flaccid and weak and was concerned whether she had a new onset cerebrovascular accident and had a CT scan which was negative; however, was then admitted to the intensive care unit due to unstable blood pressures and concern for stroke in evolution. The patient was then stabilized. No evidence of stroke was ascertained from CT and MRI scanning of the brain and head. The patient had some spontaneous resolution of her left upper extremity weakness and lack of coordination. The patient was then deemed stable for operative intervention and the patient was then taken to the operative suite today for surgery as indicated. All potential risks, benefits, complications, alternatives, rehab, potential for incomplete relief of symptoms, need for further surgery, DVT, PE, , persistent pain, swelling, scarring, weakness, neurovascular injury, wound complications, need for further amputation or revision to above knee amputation was discussed with the patient. The patient decided to proceed with the procedure as indicated. PROCEDURE IN DETAIL: The patient was taken to the operative suite, placed supine on the operating room table. After review of consent and identification of proper operative site, the patient was anesthetized, LMA was placed and the tourniquet was applied high on the left thigh over cast padding. Left lower extremity was then sterilely prepped and draped in usual fashion after removal of the sutures was performed. Next, the tourniquet was inflated to 350 mmHg. Next, a 10 blade scalpel was then used to make an incision at the site of the prior suture line, which had no evidence of dehiscence. The incision was then deepened through the scarred subcutaneous tissue to the level of the tibia. At this point, a significant amount of abscess fluid was encountered, approximately 60-100 mL in total, which was then cultured with a small swab culturette for aerobic and anaerobic organisms as well as for Gram stain. Next after the abscess collection located, primarily the lateral lower aspect of the left lower leg was evacuated and suctioned clear. A large curved curette was then used to curettage the abscess pocket to remove any abscess membrane and there was some scant evidence of previous antibiotic bead placement. Next, distal aspect of the tibia was then inspected and noted to have antibiotic beads placed within the distal medullary canal of the tibia. These were all removed. No evidence of obvious bone infection or osteomyelitis. The bone consistency was fair; however, it was not normal. At this point it was felt that revision of the amputation would be best suited to the patient, followed by debridement of soft tissues and slight shortening of the below-knee amputation. Also noted to be a dusky hue of the residual gastroc soleus complex. No overt necrosis was noted. There was no evidence of increased friability of the fascia. Did not have the typical appearance of any type of necrotizing fasciitis. Tissue integrity was good; however dusky appearance to the muscle and fat in the distal aspect of the stump. Next, 10 blade scalpel was then used to revise the below-knee amputation with creation of a new anterior flap line with resection of approximately 1 cm of distal tissue. The posterior flap was then revised with resection of approximately 1-2 cm of superficial skin and deep soft tissue. The 10 blade was then used to bevel the deep posterior and superficial posterior compartments. Next, once this was completed, there was noted to be improvement in the hue of the tissue, more of a red hue, however, still not the appearance of normal well vascularized muscular tissue. Still no evidence of friability of the fascia and no overt necrosis of the tissue. Next, the pulsatile lavage with 6 liters of large fluid laden with bacitracin was then used to cleanse the tissues. A sagittal saw was then used to resect approximately 1.5 cm of the distal tibia with associated shortening of the fibula, approximately 1.5 cm to a more normal texture and consistency of bone. After lavage was completed, the anterior aspect of the tibia was then bevelled somewhat with the sagittal saw and smoothed with a rasp. Next, Stimulan antibiotic beads were created using a 10 mL packet of beads with 1 vial of tobramycin and 1 vial of gentamicin liquid. These were all mixed together and then a slight amount of the sterile normal saline within the packet was then used to mix to a paste consistency which was then placed in a medium beadworker. Once beads were dried and ready for implantation, they were removed from the bead mat and then placed in the distal lateral aspect of the left lower leg, in the medullary canal of the tibia and sprinkled along the flap closure. Top gloves and top sheet had been changed after lavage had been completed and the twin 10 [place]oc[place] Hemovac drain was then placed into the lateral evacuated abscess pouch and also along the distal aspect of the flap closure of the lower extremity. These were exited both superomedial and superolateral within the left lower leg. Next, the flap was then closed in a full thickness fashion without any type of deep sutures due to risk of colonization of the sutures and the threaded sutures. Therefore, 2-0 nylon sutures were then used to close the flap with combination of intermittent horizontal mattress and simple sutures. Next, a sterile compressive dressing was applied, consisting of Xeroform gauze, sterile 4 x 4's, ABD pads x2 with 6-inch Kerlix roll and Webril and covered with 6-inch Gabe wraps. The tourniquet was released, the patient was awakened and taken to recovery in stable condition. I attest to the content of the Intraoperative Record and any orders documented therein. Any exceptions are noted below. SRINATH
[2017-08-28] MEDS: CLINDAMYCIN IV 900 MG in DEXTROSE 5% 50ML 50 ML IV SCH (17:19)
--- NOTE | 2017-08-28 19:45 | DIAGNOSTIC IMAGING REPORT ---
L TIBIA/FIBULA 2 VIEWS ROUTINE CLINICAL HISTORY: post-op infection COMPARISON: None. DISCUSSION: Evidence for a below knee amputation. Multiple radiopaque pellets are identified consistent with an antibiotic placement. Surgical drains are in position. Partial resection of the lytic components of the distal tibia and distal fibula remnants. IMPRESSION: Operative resection of the erosive changes of the residual distal tibia and fibula as well as placement of antibiotic treatment pellets The above report was generated using voice recognition software. It may contain grammatical, syntax or spelling errors. Electronically signed by: Jigar Enciso M.D. 08/28/2017 7:44 PM Dictated Date/Time: 08/28/2017 7:42 PM
[2017-08-29] VITALS (12 sets, daily range): BP systolic 93–136; BP diastolic 52–107; PULSE 72–90; TEMP 36.8–37.4; O2SAT 92–100
[2017-08-29] MEDS: PIPERACILL/TAZOBAC IV 4.5 GM in DEXTROSE 5% 100ML IV SCH ×3 (01:41→17:26)
[2017-08-29] MEDS: CLINDAMYCIN IV 900 MG in DEXTROSE 5% 50ML 50 ML IV SCH (01:41)
[2017-08-29] MEDS: HYDROmorphone INJ 2 MG/ML SYR/VIAL IV PRN (03:28)
[2017-08-29] MEDS: SODIUM CHLORIDE 0.9% 1000ML 1,000 ML IV SCH ×2 (03:28→08:25)
[2017-08-29] MEDS: INSULIN ASPART 100 UNITS/ML 3 ML PEN SC SCH ×6 (04:00→21:00)
[2017-08-29] MEDS: LINEZOLID / D5W 600 MG in PREMIXED IN D5W 300 ML IV SCH ×2 (05:26→16:11)
[2017-08-29] MEDS: LEVOTHYROXINE 112 MCG TAB PO SCH (06:00)
[2017-08-29 06:10] LABS: BASO % 0.4 %; BASO ABS # 0.02 K/uL (0-0.2); EOS % 4.7 %; HEMATOCRIT 25.6 % (37-47); IG% 0.2 %; LYMPH % 21.9 %; LYMPH ABS # 1.16 K/uL (1.2-3.4); MEAN CELL VOLUME 87.4 fL (80-100); MEAN CORPUSCULAR HEMOGLOBIN 29.4 pg (25-34); MEAN CORPUSCULAR HGB CONC 33.6 g/dl (32-36); MEAN PLATELET VOLUME 8.5 fL (7.4-10.4); MONO % 13.4 %; NEUT % 59.4 %; PLATELET COUNT 194 K/uL (130-400); RED BLOOD COUNT 2.93 M/uL (4.2-5.4); WHITE BLOOD COUNT 5.29 K/uL (4.8-10.8)
[2017-08-29] MEDS: ONDANSETRON INJ 2 MG/ML 2 ML VIAL IV PRN (06:33)
[2017-08-29 06:41] LABS: COMPLETE YES
[2017-08-29 06:50] LABS: BUN/CREATININE RATIO 13.9 (10-20); CALCIUM 7.8 mg/dl (8.5-10.1); CREATININE 0.83 mg/dl (0.60-1.20); MAGNESIUM 1.6 mg/dl (1.8-2.4); PHOSPHORUS 2.3 mg/dl (2.5-4.9); POTASSIUM 3.8 mmol/L (3.5-5.1)
[2017-08-29] MEDS: ASPIRIN 81 MG ECTAB PO SCH (07:32)
[2017-08-29] MEDS: CHOLECALCIFEROL 1000 INTER.UNIT TAB PO SCH (07:33)
[2017-08-29] MEDS: FERROUS SULFATE 325 MG TAB PO SCH ×2 (07:33→17:30)
[2017-08-29] MEDS: ISOSORBIDE MONONITRATE 60 MG TABCR PO SCH (07:33)
[2017-08-29] MEDS: RANOLAZINE 500 MG ER TAB PO SCH ×2 (07:33→21:02)
[2017-08-29] MEDS: ALPRAZOLAM 0.5 MG TAB PO SCH ×3 (07:36→21:03)
[2017-08-29] MEDS: MoRPHine SULFATE CR 15 MG TAB (MS CONTIN) PO SCH ×2 (07:36→21:03)
[2017-08-29] MEDS ORDERED: SODIUM PHOSPHATE 3 MMOL/1 ML INFUSION IV STA (07:36)
[2017-08-29] MEDS: INSULIN GLARGINE SOLOSTAR 100 UNITS/ML 3 ML PEN SC SCH ×2 (07:37→08:26)
[2017-08-29] MEDS ORDERED: SODIUM PHOSPHATE INJ 15 MMOL in SODIUM CHLORIDE 0.9% 250ML 250 ML IV ONE (08:00)
[2017-08-29] MEDS: MAGNESIUM OXIDE 400 MG TAB PO SCH ×3 (08:23→17:30)
--- NOTE | 2017-08-29 08:33 | Orthopedic Progress Note ---
Orthopedic Progress Note Date of Service Aug 29, 2017. Subjective Post OP Day: 1 Reports: feeling well, Denies: chest pain, SOB, nausea / vomiting, light headedness Additional Notes: RESTING COMFORTABLY. STILL IN ICU. PAIN 3/10 BEFORE MEDS. LEFT ARM IMPROVING, NOW WITH ONLY NUMBNESS IN THE FINGERS. Objective N/V intact, dressing C/D/I, A&O x3 RIGHT BKA. LEFT DRESSING CDI, NO DRAINAGE. HEMOVAC OUTPUT 110/100 CC PER SHIFT Date Time Temp Pulse Resp B/P (MAP) Pulse Ox O2 Delivery O2 Flow Rate FiO2 08/29/17 06:00 84 14 129/66 (87) 100 Oxymask 3.0 08/29/17 06:00 84 7 100 08/29/17 05:00 77 17 92 08/29/17 04:00 Nasal Cannula 3.0 08/29/17 04:00 36.9 79 19 105/52 (69) 94 Nasal Cannula 3.0 08/29/17 04:00 79 19 94 08/29/17 03:00 84 21 94 08/29/17 02:00 85 15 95 08/29/17 02:00 85 15 103/57 (72) 95 Nasal Cannula 3.0 08/29/17 01:00 90 16 95 08/29/17 00:01 37.4 87 14 136/107 (117) 92 Nasal Cannula 3.0 08/29/17 00:01 87 14 92 08/28/17 23:59 Nasal Cannula 3.0 08/28/17 23:00 88 13 98 08/28/17 22:00 86 18 98 08/28/17 22:00 86 18 129/69 (89) 98 Nasal Cannula 3.0 08/28/17 21:00 88 19 100 08/28/17 20:00 37.5 92 25 160/83 (108) 95 Nasal Cannula 3.0 08/28/17 20:00 92 25 95 08/28/17 20:00 Nasal Cannula 3.0 08/28/17 19:00 82 19 96 08/28/17 18:16 82 14 113/57 (75) 95 08/28/17 18:15 83 19 95 08/28/17 18:01 82 17 109/63 (78) 94 Nasal Cannula 2.0 08/28/17 18:00 82 16 92 08/28/17 17:46 85 14 111/59 (76) 95 08/28/17 17:45 83 12 95 08/28/17 17:31 84 14 97/60 (72) 93 08/28/17 17:30 84 15 93 08/28/17 17:16 85 15 139/73 (95) 99 Nasal Cannula 2.0 08/28/17 17:15 85 10 99 08/28/17 17:01 84 13 135/72 (93) 100 08/28/17 17:00 84 12 99 08/28/17 16:46 84 10 135/73 (93) 98 Nasal Cannula 2.0 08/28/17 16:45 85 8 95 08/28/17 16:31 86 11 135/72 (93) 95 08/28/17 16:30 Nasal Cannula 2.0 08/28/17 16:30 86 12 97 08/28/17 16:16 85 11 142/73 (96) 100 08/28/17 16:15 85 142/73 (90) 100 Oxymask 5 08/28/17 16:15 85 14 99 08/28/17 16:01 85 12 139/75 (96) 100 Oxymask 5.0 08/28/17 16:00 86 9 100 08/28/17 16:00 85 139/75 (94) 100 Oxymask 5 08/28/17 15:46 86 12 130/80 (97) 100 08/28/17 15:45 86 14 100 08/28/17 15:45 87 130/80 (105) 100 Oxymask 5 08/28/17 15:31 92 14 158/83 (108) 100 08/28/17 15:30 37.2 08/28/17 15:30 93 19 100 Oxymask 5.0 08/28/17 15:30 37.2 88 16 158/88 100 Oxymask 5 08/28/17 12:15 36.8 79 25 96 08/28/17 12:01 76 17 96/52 (67) 97 08/28/17 12:00 77 17 99 08/28/17 11:46 78 18 99/59 (72) 99 08/28/17 11:45 80 10 98 08/28/17 11:31 80 13 114/61 (78) 100 08/28/17 11:30 80 21 97 08/28/17 11:30 Room Air 08/28/17 11:16 77 13 121/73 (89) 98 08/28/17 11:15 77 18 98 08/28/17 11:01 78 17 107/65 (79) 97 08/28/17 11:00 78 19 97 08/28/17 10:46 82 21 122/69 (86) 99 08/28/17 10:45 82 19 99 08/28/17 10:31 80 17 112/61 (78) 98 08/28/17 10:30 80 10 98 08/28/17 10:16 79 17 118/66 (83) 97 08/28/17 10:15 80 15 98 08/28/17 10:01 80 21 118/52 (74) 99 08/28/17 10:00 71 17 99 08/28/17 09:16 77 18 104/60 (75) 98 08/28/17 09:01 80 10 149/79 (102) 98 08/28/17 09:00 82 16 99 08/28/17 08:46 75 18 107/65 (79) 98 08/28/17 08:31 76 10 113/62 (79) 97 Laboratory Results 24 Hours: Test 08/29/17 06:04 White Blood Count 5.29 K/uL Red Blood Count 2.93 M/uL Hemoglobin 8.6 g/dL Hematocrit 25.6 % Mean Corpuscular Volume 87.4 fL Mean Corpuscular Hemoglobin 29.4 pg Mean Corpuscular Hemoglobin Concent 33.6 g/dl Platelet Count 194 K/uL Mean Platelet Volume 8.5 fL Neutrophils (%) (Auto) 59.4 % Lymphocytes (%) (Auto) 21.9 % Monocytes (%) (Auto) 13.4 % Eosinophils (%) (Auto) 4.7 % Basophils (%) (Auto) 0.4 % Neutrophils # (Auto) 3.14 K/uL Lymphocytes # (Auto) 1.16 K/uL Monocytes # (Auto) 0.71 K/uL Eosinophils # (Auto) 0.25 K/uL Basophils # (Auto) 0.02 K/uL Assessment & Plan Assessment: POD#1 SP REVISION LEFT BKA Sepsis-improved Hypotension-stabilized Left UE weakness-improved, ROM IMPROVED Plan: CULTURES PENDING, CONTINUE CLINDA/ZOSYN DC DRESSING/DRAIN WEDNESDAY PENDING OUTPUT MEDIAL MANAGEMENT PAIN MANAGEMENT- MS NNAY CONTIN DC PLANNING- PER CM.
--- NOTE | 2017-08-29 08:55 | Critical Care Progress Note ---
Critical Care Progress Note Date of Service Aug 29, 2017. ICU Day ICU Day Number: [address] Alicea Subjective 08/26/2017 51 year old female with a PMH of uncontrolled T1DM, CAD, HTN and Bilateral BKA with several I&D of left BKA who came to the hospital due to worsening pain of left leg as well as ongoing fevers and chills. She had blood cultures obtained, lab work drawn and she was placed on IV rocephin with plan to go to the operating room with left bka incision and drainage. She was febrile overnight with a tmx of 39. 08/27/2017 This morning at the bedside she appeared pale and drowsy according to the primary team and she was given a 1L bolus and had a lactic acid ordered which was within normal limits. At 2pm a stroke alert was called as the patient complained of a weak right arm. She had an emergent CT scan of her head which was normal. Patient was transferred to the ICU. Dr. De La Cruz was consulted via telestroke cart and TPA was not recommended due to the last well known being > 3.5 hours and he believed that her symptoms were hypotension related. In the ICU the patient remained hypotensive with blood pressure in the 70's/30's therefore norepinephrine was started at .1 to maintain a MAP >65. She had the IV team insert two peripheral IV lines and the patient was taken for an MRI for further evaluation of her stroke like symptoms. With regards to her ongoing BKA infection she has been following with infectious disease. On August 01 she grew MSSA and she had been on rocephin as an outpatient. Her antibiotics today were switched from rocephin to linezolid and zosyn and she has blood cultures pending. Her diabetes mellitus is poorly controlled and her HbA1c done in the hospital was 11.3. Patient was seen at the bedside at 625 pm after MRI imaging. Patient was complaining of 9/10 left lower leg pain. She still was having weakness in her left hand, she had decreased sensation up to her left elbow and was having numbness and tingling down her left arm. 08/28/2017 Brain MRI reviewed and within normal limits. MRA of head showed mild narrowing within petrous portion of left internal carotid artery. Patients left arm weakness much improved since yesterday. Still with mild weakness, numbness/ tingling on left arm up to the elbow on the left side. She denies any neck pain or stiffness and no worsening of symptoms with turning of her head. Her left leg appears to have worsening streaking up the medial aspect of her left leg. She is having worsening pain of her leg. Her leg is very tender to palpation and is warm to touch. The patient was started on clindamycin IV and 2 view xray of left femur was ordered which showed continuos soft tissue air inferior and anterior to the knee as well as soft tissue edema. Dr. Ramos was contacted at 9:30 am and a message was left with his guidance secretary. He phoned Dr. Alicea shortly after and came to evaluate the patient. It was decided that the patient would go to surgery this afternoon for incision and exploration of the patients left leg due to concern for necrotizing fasciitis vs lymphangiitis of the leg. Overnight the patient had levophed for pressure support. It was turned off this morning and pressors have remained adequate. She also had her insulin drip turned off overnight and her blood sugars have been well controlled. This morning the patient was complaining of left leg pain that she rated as a 9/ 10. She also said that she felt cold but denied any fevers. She denies any nausea, vomiting, chest pain, shortness of breath cough, abdominal pain, nausea , vomiting, visual changes, headaches, difficulty swallowing, facial droop, leg weakness, leg numbness or tingling. 08/29/2017 Patient went to surgery yesterday for I&D of her left leg. She had an abscess present which was drained and excised. She had antibiotic beads placed in the area before closure of the stump. She also had a drain placed which has been draining 200ml of blood overnight. Patients pain has been well controlled. Her hand weakness has improved drastically since yesterday, she is only have mild numbness and tingling in the hand. Overnight she has been afebrile with a decreasing wcc and has not required pressors. Patient denies any fevers, night sweats or chills. Denies any worsening leg pain , chest pain, palpitations, abdominal pain, nausea, vomiting, headache, visual changes, difficulty swallowing, arm/leg weakness Objective General Appearance: well-appearing, no apparent distress, in pain Head: normocephalic Eyes: PERRLA, EOMI ENT: normal throat exam Neck: normal range of motion, no tenderness, trachea midline, no stridor, supple Respiratory: breath sounds normal, clear to auscultation, no respiratory distress Cardiovasular: regular rate/rhythm, normal S1S2, systolic murmur (2/6 systolic murmur at LLSB) Abdomen: non tender, normal bowel sounds, no rebound, no guarding Upper Extremities: no edema, no deformity Lower Extremities: Right BKA without any redness, swelling or pain. Left BKA in tight dressing wrap, without any surrounding erythema or blood extravasation through the dressing, has a drain from left BKA which is draining dark red blood Neuro: oriented x 3, normal motor exam, normal sensation, normal speech, other (CN 2-12 without any focal deficits) Current SOFA Score SOFA Score Response (Comments) Value Platelets (x10) > 150 0 Bilirubin (mg/dL) < 1.2 0 Jewel Coma Score 15 0 Level of Hypotension No Hypotension 0 Creatinine (mg/dL) 1.2 - 1.9 1 Total 1 Assessment & Plan 51 year old female with a PMH of uncontrolled T1DM, CAD, HTN and Bilateral BKA who was admitted to the hospital for left BKA I&D. She had a stroke alert called due to arm weakness, was brought to the ICU for stroke workup and subsequently was hypotensive and started on levophed for pressor support. Went to surgery yesterday for I&D of left stump due to worsening redness and streaking along the medial aspect of the left leg. NEURO cam negative pain control ordered: oxy 5mg prn, oxy 10mg prn, and morphine 30mg PO Q12 CT scan negative, MRI negative MRA with mild narrowing of petrous portion of left internal carotid stroke symptoms improving and patient without any arm weakness and sensation improved carotid dopplers with 20-30% narrowing on aspirin and plavix RESP saturating 97% on room air continue to monitor oxygen saturation CARDIAC on aspirin and plavix, both restarted today no EKG changes noted levophed is off since yesterday echo ordered --> EF 65-70% and no wall motion abnormalities on ranexa, isosorbide for chest pain at home restart lisinopril as kidney function improved ID clinda added yesterday due to concern for nec fasc. ortho said no nec fasc during surgery. will receive total 3 dose of clinda and then d/c femur xray showed soft tissue air anterior to left knee continue linezolid and zosyn blood cultures pending hx of MSSA as outpatient ortho consulted - taken for I&D yesterday with antibiotic beads placed RENAL PAM resolved with creatinine 0.83 this morning, baseline of 1.0 fluid resuscitation with 2L bolus and receiving 150mls/hr of NS, IV fluids stopped today continue to monitor bmp potassium 3.3 yesterday supplement with 40meq bid. today potassium 3.8 hold nephrotoxic medications Mag 1.6, replete with mag oxide 400 q4 x3 Phos 2.3, replete with sodium phos 15mml IV x1 ENDOCRINE HbA1c was 11.3 takes 44 units of lantus at home on 25 lantus bid in hospital bsg's in mid 200's yesterday hx of hypothyroidism- on synthroid, TSH and T4 wnl serum cortisol normal HEME anemia hgb 8.6, normocytic, anemia likely dilutional due to patient receiving IV fluids on ferrous sulfate 325mg wbc decreased to 5.29, continue to follow transfusion threshold <6.5 or evidence of end organ ischaemia PSYCH xanax prn for anxiety FULL CODE Diabetic diet ordered DVT prophylaxis with heparin 5000 bid Transfer to Med/surg Resident Physician Supervision Note: Dr. Clement was resident physician during care of patient. I separately evaluated patient and did history and exam. I discussed the case with the resident and generally agree with the findings and plan. Source control achieved. Anemia likely dilutional. Will transfuse if HGB <6.5 or evidence of end organ ischemia. Stable for transfer to med/surg. Awaiting wound culture to de-escalate ABX. Documented By: Jared Alicea DO Consults & Procedures Consultants: Dr. Nixon Steele Procedures: going for I&D this afternoon Data Medications: Current Inpatient Medications Medications (Trade) Dose Ordered Sig/Ochoa Route Start Time Stop Time Status Last Admin Dose Admin Acetaminophen (Tylenol Tab) 650 mg Q6H PRN PO 08/26/17 19:00 09/25/17 18:59 Diphenhydramine HCl (Benadryl Inj) 25 mg Q8 PRN IV 08/26/17 19:00 09/25/17 18:59 Ondansetron HCl (Zofran Inj) 4 mg Q6H PRN IV 08/26/17 19:00 09/25/17 18:59 08/29/17 06:33 4 MG Alprazolam (Xanax Tab) 1 mg TID PO 08/26/17 21:00 09/25/17 20:59 08/29/17 07:36 1 MG Famotidine (Pepcid Tab) 20 mg HS PRN PO 08/26/17 19:15 09/25/17 19:14 Ferrous Sulfate (Feosol Tab) 325 mg BIDM PO 08/27/17 08:30 09/26/17 08:29 08/29/17 07:33 325 MG Isosorbide Mononitrate (Imdur Ext Rel Tab) 60 mg BID PO 08/26/17 21:00 09/25/17 20:59 08/29/17 07:33 60 MG Levothyroxine Sodium (Synthroid Tab) 112 mcg DAILYBB PO 08/27/17 06:00 09/26/17 05:59 08/29/17 06:00 112 MCG Lisinopril (Zestril Tab) 40 mg HS PO 08/26/17 21:00 09/25/17 20:59 Future Hold 08/26/17 21:24 40 MG Promethazine HCl (Phenergan Tab) 25 mg Q6 PRN PO 08/26/17 19:15 09/25/17 19:14 08/28/17 12:00 25 MG Senna/Docusate Sodium (Senokot S Tab) 2 tab HS PRN PO 08/26/17 19:15 09/25/17 19:14 Cholecalciferol (Vitamin D Tab) 1,000 inter.unit DAILY PO 08/27/17 09:00 09/26/17 08:59 08/29/17 07:33 1,000 INTER.UNIT Morphine Sulfate (Oramorph Sr Tab) 30 mg Q12 PO 08/26/17 21:00 09/09/17 20:59 08/29/17 07:36 30 MG Ranolazine (Ranexa ER Tab) 1,000 mg BID PO 08/26/17 21:00 09/25/17 20:59 08/29/17 07:33 1,000 MG Oxycodone HCl (Roxicodone Immediate Rel Tab) 5 mg Q4 PRN PO 08/26/17 19:15 09/09/17 19:14 Oxycodone HCl (Roxicodone Immediate Rel Tab) 10 mg Q4 PRN PO 08/26/17 19:15 09/09/17 19:14 08/28/17 12:04 10 MG Miscellaneous Information (Consult Glycemic Management Pharmacy) 1 ea UD PRN N/A 08/26/17 20:01 09/25/17 20:00 Hydromorphone HCl (Dilaudid Inj) 2 mg Q4H PRN IV 08/26/17 20:00 09/09/17 19:59 08/29/17 03:28 2 MG Glucose (Glucose 40% Gel) 15-30 GRAMS 15 GRAMS... UD PRN PO 08/26/17 21:00 09/25/17 20:59 Glucose (Glucose Chew Tab) 4-8 Tablets 4 Tabl... UD PRN PO 08/26/17 21:00 09/25/17 20:59 Dextrose (Dextrose 50% 50ML Syringe) 25-50ML OF 50% DW IV FOR... UD PRN IV 08/26/17 21:00 09/25/17 20:59 Glucagon (Glucagon Inj) 1 mg UD PRN SQ 08/26/17 21:00 09/25/17 20:59 Heparin Sodium (Porcine) (Heparin 100 Unit/ml 5ml Flush) 5 ml PRN PRN IV 08/26/17 21:15 09/25/17 21:14 08/27/17 05:50 5 ML Sodium Chloride 1,000 ml @ 150 mls/hr Q6H40M IV 08/27/17 07:15 09/26/17 07:14 08/29/17 08:25 150 MLS/HR Linezolid 600 mg/ Prmx 300 ml @ 300 mls/hr Q12@0400,1600 IV 08/27/17 16:00 09/06/17 15:59 08/29/17 05:26 300 MLS/HR Norepinephrine Bitartrate 8 mg/ Dextrose 508 ml @ 0 mls/hr Q0M IV 08/27/17 15:45 09/26/17 15:44 08/27/17 16:18 30.7 MLS/HR Piperacillin Sod/ Tazobactam Sod (Consult) 1 ea UD PRN N/A 08/27/17 16:30 09/26/17 16:29 Insulin Aspart (novoLOG ASPART) SLIDING SCALE If CARB RA... ACHS SC 08/28/17 11:00 09/27/17 10:59 Piperacillin Sod/ Tazobactam Sod 4.5 gm/Dextrose 120 ml @ 30 mls/hr Q8H IV 08/28/17 10:00 09/07/17 00:00 08/29/17 01:41 30 MLS/HR Clindamycin Phosphate 900 mg/ Dextrose 56 ml @ 56 mls/hr Q8H IV 08/28/17 18:00 08/30/17 09:59 08/29/17 01:41 56 MLS/HR Aspirin (Ecotrin Tab) 81 mg QAM PO 08/29/17 09:00 09/28/17 08:59 08/29/17 07:32 81 MG Magnesium Oxide (Mag-Ox Tab) 400 mg Q4 PO 08/29/17 08:00 08/29/17 16:01 08/29/17 08:23 400 MG Sodium Phosphate 15 mmol/Sodium Chloride 255 ml @ 102 mls/hr 0800 ONCE IV 08/29/17 08:00 08/29/17 10:29 08/29/17 08:23 102 MLS/HR Insulin Glargine (Lantus Solostar Pen) 23 units BID SC 08/29/17 09:00 09/28/17 08:59 Vital Signs: Date Time Temp Pulse Resp B/P (MAP) Pulse Ox O2 Delivery O2 Flow Rate FiO2 08/29/17 08:00 Nasal Cannula 3.0 08/29/17 06:00 84 14 129/66 (87) 100 Oxymask 3.0 08/29/17 06:00 84 7 100 08/29/17 05:00 77 17 92 08/29/17 04:00 Nasal Cannula 3.0 08/29/17 04:00 36.9 79 19 105/52 (69) 94 Nasal Cannula 3.0 08/29/17 04:00 79 19 94 08/29/17 03:00 84 21 94 08/29/17 02:00 85 15 95 08/29/17 02:00 85 15 103/57 (72) 95 Nasal Cannula 3.0 08/29/17 01:00 90 16 95 08/29/17 00:01 37.4 87 14 136/107 (117) 92 Nasal Cannula 3.0 08/29/17 00:01 87 14 92 08/28/17 23:59 Nasal Cannula 3.0 08/28/17 23:00 88 13 98 08/28/17 22:00 86 18 98 08/28/17 22:00 86 18 129/69 (89) 98 Nasal Cannula 3.0 08/28/17 21:00 88 19 100 08/28/17 20:00 37.5 92 25 160/83 (108) 95 Nasal Cannula 3.0 08/28/17 20:00 92 25 95 08/28/17 20:00 Nasal Cannula 3.0 08/28/17 19:00 82 19 96 08/28/17 18:16 82 14 113/57 (75) 95 08/28/17 18:15 83 19 95 08/28/17 18:01 82 17 109/63 (78) 94 Nasal Cannula 2.0 08/28/17 18:00 82 16 92 08/28/17 17:46 85 14 111/59 (76) 95 08/28/17 17:45 83 12 95 08/28/17 17:31 84 14 97/60 (72) 93 08/28/17 17:30 84 15 93 08/28/17 17:16 85 15 139/73 (95) 99 Nasal Cannula 2.0 08/28/17 17:15 85 10 99 08/28/17 17:01 84 13 135/72 (93) 100 08/28/17 17:00 84 12 99 08/28/17 16:46 84 10 135/73 (93) 98 Nasal Cannula 2.0 08/28/17 16:45 85 8 95 08/28/17 16:31 86 11 135/72 (93) 95 08/28/17 16:30 Nasal Cannula 2.0 08/28/17 16:30 86 12 97 08/28/17 16:16 85 11 142/73 (96) 100 08/28/17 16:15 85 142/73 (90) 100 Oxymask 5 08/28/17 16:15 85 14 99 08/28/17 16:01 85 12 139/75 (96) 100 Oxymask 5.0 08/28/17 16:00 86 9 100 08/28/17 16:00 85 139/75 (94) 100 Oxymask 5 08/28/17 15:46 86 12 130/80 (97) 100 08/28/17 15:45 86 14 100 08/28/17 15:45 87 130/80 (105) 100 Oxymask 5 08/28/17 15:31 92 14 158/83 (108) 100 08/28/17 15:30 37.2 08/28/17 15:30 93 19 100 Oxymask 5.0 08/28/17 15:30 37.2 88 16 158/88 100 Oxymask 5 08/28/17 12:15 36.8 79 25 96 08/28/17 12:01 76 17 96/52 (67) 97 08/28/17 12:00 77 17 99 08/28/17 11:46 78 18 99/59 (72) 99 08/28/17 11:45 80 10 98 08/28/17 11:31 80 13 114/61 (78) 100 08/28/17 11:30 80 21 97 08/28/17 11:30 Room Air 08/28/17 11:16 77 13 121/73 (89) 98 08/28/17 11:15 77 18 98 08/28/17 11:01 78 17 107/65 (79) 97 08/28/17 11:00 78 19 97 08/28/17 10:46 82 21 122/69 (86) 99 08/28/17 10:45 82 19 99 08/28/17 10:31 80 17 112/61 (78) 98 08/28/17 10:30 80 10 98 08/28/17 10:16 79 17 118/66 (83) 97 08/28/17 10:15 80 15 98 08/28/17 10:01 80 21 118/52 (74) 99 08/28/17 10:00 71 17 99 08/28/17 09:16 77 18 104/60 (75) 98 08/28/17 09:01 80 10 149/79 (102) 98 08/28/17 09:00 82 16 99 Laboratory Results: Last 24 Hours Test 08/28/17 08:58 08/28/17 11:49 08/28/17 16:02 08/28/17 20:39 Thyroid Stimulating Hormone (TSH) 1.620 uIu/ml Thyroxine (T4) 5.5 mcg/dl Random Cortisol 17.17 mcg/dl Bedside Glucose 142 mg/dl 110 mg/dl 145 mg/dl Test 08/29/17 00:35 08/29/17 05:28 08/29/17 06:04 Bedside Glucose 93 mg/dl 81 mg/dl White Blood Count 5.29 K/uL Red Blood Count 2.93 M/uL Hemoglobin 8.6 g/dL Hematocrit 25.6 % Mean Corpuscular Volume 87.4 fL Mean Corpuscular Hemoglobin 29.4 pg Mean Corpuscular Hemoglobin Concent 33.6 g/dl Platelet Count 194 K/uL Mean Platelet Volume 8.5 fL Neutrophils (%) (Auto) 59.4 % Lymphocytes (%) (Auto) 21.9 % Monocytes (%) (Auto) 13.4 % Eosinophils (%) (Auto) 4.7 % Basophils (%) (Auto) 0.4 % Neutrophils # (Auto) 3.14 K/uL Lymphocytes # (Auto) 1.16 K/uL Monocytes # (Auto) 0.71 K/uL Eosinophils # (Auto) 0.25 K/uL Basophils # (Auto) 0.02 K/uL RDW Standard Deviation 44.8 fL RDW Coefficient of Variation 14.0 % Immature Granulocyte % (Auto) 0.2 % Immature Granulocyte # (Auto) 0.01 K/uL Red Blood Cell Morphology Unremarkable Sodium Level 136 mmol/L Potassium Level 3.8 mmol/L Chloride Level 104 mmol/L Carbon Dioxide Level 24 mmol/L Anion Gap 8.0 mmol/L Blood Urea Nitrogen 12 mg/dl Creatinine 0.83 mg/dl Est Creatinine Clear Calc Drug Dose 85.8 ml/min Estimated GFR () 96.0 Estimated GFR (Non- 82.8 BUN/Creatinine Ratio 13.9 Random Glucose 94 mg/dl Calcium Level 7.8 mg/dl Phosphorus Level 2.3 mg/dl Magnesium Level 1.6 mg/dl
[2017-08-29] MEDS ORDERED: CLOPIDOGREL BISULFATE 75 MG TAB PO SCH (09:00)
[2017-08-29] MEDS ORDERED: LISINOPRIL 40 MG TAB PO SCH (09:00)
--- NOTE | 2017-08-29 11:13 | Pharmacy Progress Note ---
Glycemic Control Progress Note Date of Service Aug 29, 2017. Scope Glycemic Pharmacist consulted for glycemic control to write orders per [facility] inpatient glycemic control protocol. Objective Accuchecks BSG (last 24hrs): Test 08/28/17 11:49 08/28/17 16:02 08/28/17 20:39 08/29/17 00:35 Bedside Glucose 142 mg/dl (70-90) 110 mg/dl (70-90) 145 mg/dl (70-90) 93 mg/dl (70-90) Test 08/29/17 05:28 08/29/17 06:04 Bedside Glucose 81 mg/dl (70-90) Random Glucose 94 mg/dl (70-99) HbA1c: Test 08/27/17 05:44 Hemoglobin A1c 11.3 % (4.5-5.6) H Outpatient Anti-Diabetic Meds Toujeo {insulin glargine U-300} 44 units in AM + 22 units in PM Humalog with meals {if she can get samples} Assessment & Plan ASSESSMENT: * See progress note from 08/26, 08/27, 08/28 for more background info, in short: * Pt is well known to pharmacy service from previous admissions/glycemic consults * 08/27: patient with sustained hyperglycemia secondary to infection/illness & insulin deficiency. Pt was ordered significantly reduced doses for NPO in anticipation of OR 08/27 afternoon. However, pt transferred to ICU for hypotension/stroke alert. Pt initiated on IV insulin infusion on arrival to ICU. * 08/28: patient transitioned from IV to SQ basal bolus insulin regimen upon resolution of hyperglycemia and improvement in patient status. Pt to OR for I&D of infected BKA. Pt continued on reduced dosing SQ basal bolus for decreased PO intake. * BSGs over the past 24hrs: 94, 81, 93, 145, 110, 142 * AM fasting BSG is slightly below goal range for inpatient targets at 94mg/dl --> pt continues to have decreased PO intake. Will continue to reduce basal insulin dose and titrate based on BSG trends. * Patient has received 50 units of insulin over the past 24 hrs --> this is all basal insulin as pt has had little/no PO intake. PLAN: * Basal insulin: decrease dose * Lantus 23 units SQ BID. Lantus 25 units was already given this morning, therefore, will give Lantus 20 units SQ x 1 dose tonight @ 2100 and then start Lantus 23 units SQ BID tomorrow AM. * Bolus insulin: lower goal range now that pt transferred out of ICU * NovoLog Q6hrs * Goal Range = 100-160mg/dl * CF = 20mg/dl/unit * CR = 1 unit for every 10g CHO consumed * Please note that the plan above was derived based on current level of insulin resistance and hospital stress. These recommendations are appropriate for inpatient admission only. Plan of care upon discharge will need to be reassessed to avoid potential outpatient hypo/hyperglycemia. Thank you.
[2017-08-29] MEDS: CLOPIDOGREL BISULFATE 75 MG TAB PO SCH (11:32)
[2017-08-29] MEDS: OXYCODONE HCL IR 5 MG TAB (IMMEDIATE RELEASE) PO PRN ×2 (11:33→16:11)
--- NOTE | 2017-08-29 12:12 | Progress Note ---
Subjective Date of Service: Aug 29, 2017. Subjective pt feels better this am although is tired after surgery, no further left arm weakness but blood pressure is slightly low Problem List Medical Problems: (1) Hematoma Status: Acute (2) Leg swelling Status: Acute (3) Osteomyelitis Status: Acute Review of Systems Constitutional: + weakness, + fatigue, No fever, No chills Respiratory: No cough, No shortness of breath Cardiac: No chest pain, No edema Abdomen: No pain, No nausea, No vomiting, No diarrhea Neurologic: + weakness, No memory loss, No paralysis Objective Vital Signs Date Time Temp Pulse Resp B/P (MAP) Pulse Ox O2 Delivery O2 Flow Rate FiO2 08/29/17 10:27 37.0 73 16 93/58 (70) 100 Nasal Cannula 2.0 08/29/17 10:11 36.9 84 14 100 3.0 08/29/17 08:00 Nasal Cannula 3.0 08/29/17 06:00 84 14 129/66 (87) 100 Oxymask 3.0 08/29/17 06:00 84 7 100 08/29/17 05:00 77 17 92 08/29/17 04:00 Nasal Cannula 3.0 08/29/17 04:00 36.9 79 19 105/52 (69) 94 Nasal Cannula 3.0 08/29/17 04:00 79 19 94 08/29/17 03:00 84 21 94 08/29/17 02:00 85 15 95 08/29/17 02:00 85 15 103/57 (72) 95 Nasal Cannula 3.0 08/29/17 01:00 90 16 95 08/29/17 00:01 37.4 87 14 136/107 (117) 92 Nasal Cannula 3.0 08/29/17 00:01 87 14 92 08/28/17 23:59 Nasal Cannula 3.0 08/28/17 23:00 88 13 98 08/28/17 22:00 86 18 98 08/28/17 22:00 86 18 129/69 (89) 98 Nasal Cannula 3.0 08/28/17 21:00 88 19 100 08/28/17 20:00 37.5 92 25 160/83 (108) 95 Nasal Cannula 3.0 08/28/17 20:00 92 25 95 08/28/17 20:00 Nasal Cannula 3.0 08/28/17 19:00 82 19 96 08/28/17 18:16 82 14 113/57 (75) 95 08/28/17 18:15 83 19 95 08/28/17 18:01 82 17 109/63 (78) 94 Nasal Cannula 2.0 08/28/17 18:00 82 16 92 08/28/17 17:46 85 14 111/59 (76) 95 08/28/17 17:45 83 12 95 08/28/17 17:31 84 14 97/60 (72) 93 08/28/17 17:30 84 15 93 08/28/17 17:16 85 15 139/73 (95) 99 Nasal Cannula 2.0 08/28/17 17:15 85 10 99 08/28/17 17:01 84 13 135/72 (93) 100 08/28/17 17:00 84 12 99 08/28/17 16:46 84 10 135/73 (93) 98 Nasal Cannula 2.0 08/28/17 16:45 85 8 95 08/28/17 16:31 86 11 135/72 (93) 95 08/28/17 16:30 Nasal Cannula 2.0 08/28/17 16:30 86 12 97 08/28/17 16:16 85 11 142/73 (96) 100 08/28/17 16:15 85 142/73 (90) 100 Oxymask 5 08/28/17 16:15 85 14 99 08/28/17 16:01 85 12 139/75 (96) 100 Oxymask 5.0 08/28/17 16:00 86 9 100 08/28/17 16:00 85 139/75 (94) 100 Oxymask 5 08/28/17 15:46 86 12 130/80 (97) 100 08/28/17 15:45 86 14 100 08/28/17 15:45 87 130/80 (105) 100 Oxymask 5 08/28/17 15:31 92 14 158/83 (108) 100 08/28/17 15:30 37.2 08/28/17 15:30 93 19 100 Oxymask 5.0 08/28/17 15:30 37.2 88 16 158/88 100 Oxymask 5 08/28/17 12:15 36.8 79 25 96 Physical Exam General Appearance: WD/WN, + mild distress Eyes: PERRL, EOMI Respiratory/Chest: chest non-tender, lungs clear Cardiovascular: regular rate, rhythm, no murmur Abdomen: normal bowel sounds, non tender, soft Laboratory Results Last 24 Hours Test 08/28/17 16:02 08/28/17 20:39 08/29/17 00:35 08/29/17 05:28 Bedside Glucose 110 mg/dl 145 mg/dl 93 mg/dl 81 mg/dl Test 08/29/17 06:04 White Blood Count 5.29 K/uL Red Blood Count 2.93 M/uL Hemoglobin 8.6 g/dL Hematocrit 25.6 % Mean Corpuscular Volume 87.4 fL Mean Corpuscular Hemoglobin 29.4 pg Mean Corpuscular Hemoglobin Concent 33.6 g/dl Platelet Count 194 K/uL Mean Platelet Volume 8.5 fL Neutrophils (%) (Auto) 59.4 % Lymphocytes (%) (Auto) 21.9 % Monocytes (%) (Auto) 13.4 % Eosinophils (%) (Auto) 4.7 % Basophils (%) (Auto) 0.4 % Neutrophils # (Auto) 3.14 K/uL Lymphocytes # (Auto) 1.16 K/uL Monocytes # (Auto) 0.71 K/uL Eosinophils # (Auto) 0.25 K/uL Basophils # (Auto) 0.02 K/uL RDW Standard Deviation 44.8 fL RDW Coefficient of Variation 14.0 % Immature Granulocyte % (Auto) 0.2 % Immature Granulocyte # (Auto) 0.01 K/uL Red Blood Cell Morphology Unremarkable Sodium Level 136 mmol/L Potassium Level 3.8 mmol/L Chloride Level 104 mmol/L Carbon Dioxide Level 24 mmol/L Anion Gap 8.0 mmol/L Blood Urea Nitrogen 12 mg/dl Creatinine 0.83 mg/dl Est Creatinine Clear Calc Drug Dose 85.8 ml/min Estimated GFR () 96.0 Estimated GFR (Non- 82.8 BUN/Creatinine Ratio 13.9 Random Glucose 94 mg/dl Calcium Level 7.8 mg/dl Phosphorus Level 2.3 mg/dl Magnesium Level 1.6 mg/dl Assessment and Plan 51 yo woman with left BKA here for debridement with ortho of chronically infected stump. Developed hypotension and left arm weakness afternoon of . stroke alert called, no tpa given, supported in icu with volume and pressors , antibiotics changed with ID oversight Left arm weakness, stroke was ruled out by stroke alert and MR imaging, no recurrence may have been hastened by early sepsis and hypotension did require short duration pressor support, now will reduce some of her antihypertensives and follow BP closely sepsis - , blood pressure was low, pressors used, antibiotics broadened and surgery hastened to bone debridement of osteomyelitis blood pressure still low, reduce lisinopril and consider lowering isosorbide but do not want to precipitate chest pain Left stump infection, surgery recently 08/01, ID who is consulted - changed abx from Rocephin to linezolid and zosyn, temporarily added clindamycin Blood cultures pending Acute on chronic renal failure stage 3,continues to be improved with volume and improved blood pressure and perfusion uncontrolled diabetes, insulin gtt--> transitioned to basal bolus with pharmacy oversight Last Hgb A1C= 13.9, currently 11 CAD aspirin and plavix, isosorbide and ranexa, no ekg changes at this time Hypothyroidism, clinically euthyroid on Synthroid. DVT proph, non chemical
[2017-08-29] MEDS: HEPARIN SOD 5000 UNIT/0.5 ML CARP SQ SCH ×2 (13:28→21:06)
[2017-08-29] MEDS ORDERED: INSULIN GLARGINE SOLOSTAR 100 UNITS/ML 3 ML PEN SC SCH (21:00)
[2017-08-29] MEDS ORDERED: ISOSORBIDE MONONITRATE 30 MG TABCR PO SCH (21:00)
[2017-08-30] MEDS: OXYCODONE HCL IR 5 MG TAB (IMMEDIATE RELEASE) PO PRN ×2 (00:36→09:00)
[2017-08-30] MEDS: PIPERACILL/TAZOBAC IV 4.5 GM in DEXTROSE 5% 100ML IV SCH ×3 (01:45→18:05)
[2017-08-30] MEDS: LINEZOLID / D5W 600 MG in PREMIXED IN D5W 300 ML IV SCH ×2 (03:39→17:20)
[2017-08-30] MEDS: HYDROmorphone INJ 2 MG/ML SYR/VIAL IV PRN ×2 (03:39→12:32)
[2017-08-30] MEDS: LEVOTHYROXINE 112 MCG TAB PO SCH (05:33)
[2017-08-30 07:16] VITALS: BP 96/59; PULSE 79; TEMP 36.9; O2SAT 91
[2017-08-30] MEDS: INSULIN ASPART 100 UNITS/ML 3 ML PEN SC SCH ×4 (08:55→22:02)
[2017-08-30] MEDS: INSULIN GLARGINE SOLOSTAR 100 UNITS/ML 3 ML PEN SC SCH ×2 (08:56→22:02)
[2017-08-30] MEDS: HEPARIN SOD 5000 UNIT/0.5 ML CARP SQ SCH ×2 (08:57→22:01)
[2017-08-30 09:00] VITALS: BP 142/72; PULSE 81
[2017-08-30] MEDS: ALPRAZOLAM 0.5 MG TAB PO SCH ×3 (09:00→21:53)
[2017-08-30 09:03] LABS: BUN/CREATININE RATIO 12.7 (10-20); CALCIUM 8.3 mg/dl (8.5-10.1); CREATININE 0.91 mg/dl (0.60-1.20); POTASSIUM 3.9 mmol/L (3.5-5.1)
[2017-08-30] MEDS: ISOSORBIDE MONONITRATE 30 MG TABCR PO SCH ×2 (09:04→21:54)
[2017-08-30] MEDS: CLOPIDOGREL BISULFATE 75 MG TAB PO SCH (09:04)
[2017-08-30] MEDS: FERROUS SULFATE 325 MG TAB PO SCH ×2 (09:05→17:55)
[2017-08-30] MEDS: ASPIRIN 81 MG ECTAB PO SCH (09:05)
[2017-08-30] MEDS: MoRPHine SULFATE CR 15 MG TAB (MS CONTIN) PO SCH ×2 (09:06→21:53)
[2017-08-30] MEDS: LISINOPRIL 10 MG TAB PO SCH (09:08)
[2017-08-30] MEDS: CHOLECALCIFEROL 1000 INTER.UNIT TAB PO SCH (09:09)
[2017-08-30] MEDS: RANOLAZINE 500 MG ER TAB PO SCH ×2 (09:09→21:53)
[2017-08-30 10:00] VITALS: O2SAT 93
[2017-08-30] MEDS ORDERED: BISACODYL 10 MG SUPP PR PRN (10:15)
[2017-08-30] MEDS ORDERED: SOD PHOSPHATE/SOD BIPHOSPHATE ENEMA 132 ML BTL PR PRN (10:15)
--- NOTE | 2017-08-30 10:30 | Progress Note ---
Subjective Date of Service: Aug 30, 2017. Subjective Pt evaluation today including: conversation w/ patient, physical exam, chart review, lab review pt seen in followup, transferred from ICU over weekend. no f/c. s/p wound debridement, cultures growing Staph, final pending. remains on abx. head mri negative for cva, still with some numbness in LUE. some pain in leg, no n/v/. boland removed today. tolerating abx. remaining ros reviewed and are negative. Problem List Medical Problems: (1) Hematoma Status: Acute (2) Leg swelling Status: Acute (3) Osteomyelitis Status: Acute Objective Vital Signs Date Time Temp Pulse Resp B/P (MAP) Pulse Ox O2 Delivery O2 Flow Rate FiO2 08/30/17 09:00 81 142/72 (95) 08/30/17 08:15 Room Air 08/30/17 07:16 36.9 79 18 96/59 (71) 91 Room Air 08/30/17 00:45 Room Air 08/29/17 23:14 37.3 72 16 107/63 (78) 93 Room Air 08/29/17 19:41 72 14 99/59 (72) 97 Nasal Cannula 1.0 08/29/17 19:30 Nasal Cannula 08/29/17 15:43 36.8 72 18 93/56 (68) 97 Nasal Cannula 1.0 08/29/17 12:15 Room Air Physical Exam General Appearance: WD/WN, no apparent distress Eyes: normal inspection, EOMI Neck: supple Respiratory/Chest: lungs clear, normal breath sounds, no respiratory distress Cardiovascular: regular rate, rhythm, no edema Abdomen: non tender, soft Extremities: + pertinent finding (b/l bka, OR dressing c/d/i, drain in place) Neurologic/Psychiatric: alert, oriented x 3 Skin: normal color, no rash Laboratory Results Item Value Date Time Gram Stain - Final Resulted 08/01/17 1220 Tissue Leg Lower Left Gram Stain - Final Resulted 08/01/17 1215 Drainage-Deep Left Lower Extremity Blood Culture - Preliminary Resulted 07/30/172041 Blood NO GROWTH TO DATE. Blood Culture - Preliminary Resulted 07/30/172009 Blood NO GROWTH TO DATE. Blood Culture - Preliminary Resulted 08/26/172015 Blood NO GROWTH TO DATE. Blood Culture - Preliminary Resulted 08/26/172020 Blood NO GROWTH TO DATE. Gram Stain - Final Resulted 08/28/17 1430 Drainage-Deep Knee Left Last 24 Hours Test 08/29/17 11:30 08/29/17 17:10 08/29/17 20:27 08/30/17 08:33 Bedside Glucose 86 mg/dl 106 mg/dl 101 mg/dl Sodium Level 134 mmol/L Potassium Level 3.9 mmol/L Chloride Level 100 mmol/L Carbon Dioxide Level 27 mmol/L Anion Gap 7.0 mmol/L Blood Urea Nitrogen 12 mg/dl Creatinine 0.91 mg/dl Est Creatinine Clear Calc Drug Dose 78.7 ml/min Estimated GFR () 85.9 Estimated GFR (Non- 74.1 BUN/Creatinine Ratio 12.7 Random Glucose 110 mg/dl Calcium Level 8.3 mg/dl Test 08/30/17 10:10 Assessment and Plan (1) Post op infection Assessment & Plan: continue abx, await final cultures
[2017-08-30 10:35] LABS: BASO % 0.2 %; BASO ABS # 0.01 K/uL (0-0.2); HEMATOCRIT 25.1 % (37-47); IG% 0.2 %; LYMPH % 23.4 %; LYMPH ABS # 1.01 K/uL (1.2-3.4); MEAN CELL VOLUME 86.3 fL (80-100); MEAN CORPUSCULAR HEMOGLOBIN 28.5 pg (25-34); MEAN CORPUSCULAR HGB CONC 33.1 g/dl (32-36); MEAN PLATELET VOLUME 8.5 fL (7.4-10.4); MONO % 10.2 %; PLATELET COUNT 205 K/uL (130-400); RED BLOOD COUNT 2.91 M/uL (4.2-5.4); WHITE BLOOD COUNT 4.32 K/uL (4.8-10.8)
[2017-08-30] MEDS: MAGNESIUM SULFATE 1GM / D5W 1 GM in PREMIXED IN D5W 100 ML IV SCH ×2 (11:12→12:31)
[2017-08-30 11:24] LABS: COMPLETE YES; VACUOLIZATION 1+
--- NOTE | 2017-08-30 13:05 | Hospitalist Progress Note ---
Hospitalist Progress Note Date of Service Aug 30, 2017. (Rochelle Robrets .[place]) Subjective Pt evaluation today including: conversation w/ patient, physical exam, chart review, lab review, review of studies, review of inpatient medication list Voiding: no voiding problems Ms. Freeman is still feeling unwell today. She is nauseas with little appetite, no vomiting. She has not had a bowel movement since admission. She does have some pain at her surgical site. She continues to have weakness and numbness in her left hand. Constitutional: no chills, aches, sweats or fever Respiratory: no sob,cough, sputum, or wheezing Cardiac: no chest pain, palpitations, edema, orthopnea or lightheadedness GI: See HPI : no dysuria or hesitancy Extremities: see HPI Skin: no rash All Other Systems: Reviewed and Negative (Rochelle Roberts .[place]) Medications Medications Administered Medications (Trade) Dose Ordered Sig/Ochoa Route Start Time Stop Time Status Last Admin Dose Admin Ondansetron HCl (Zofran Inj) 4 mg Q6H PRN IV 08/26/17 19:00 09/25/17 18:59 08/29/17 06:33 4 MG Alprazolam (Xanax Tab) 1 mg TID PO 08/26/17 21:00 08/29/17 12:14 DC 08/29/17 07:36 1 MG Ferrous Sulfate (Feosol Tab) 325 mg BIDM PO 08/27/17 08:30 09/26/17 08:29 08/30/17 09:05 325 MG Isosorbide Mononitrate (Imdur Ext Rel Tab) 60 mg BID PO 08/26/17 21:00 08/29/17 12:14 DC 08/29/17 07:33 60 MG Levothyroxine Sodium (Synthroid Tab) 112 mcg DAILYBB PO 08/27/17 06:00 09/26/17 05:59 08/30/17 05:33 112 MCG Lisinopril (Zestril Tab) 40 mg HS PO 08/26/17 21:00 08/29/17 09:13 DC 08/26/17 21:24 40 MG Promethazine HCl (Phenergan Tab) 25 mg Q6 PRN PO 08/26/17 19:15 09/25/17 19:14 08/28/17 12:00 25 MG Cholecalciferol (Vitamin D Tab) 1,000 inter.unit DAILY PO 08/27/17 09:00 09/26/17 08:59 08/30/17 09:09 1,000 INTER.UNIT Morphine Sulfate (Oramorph Sr Tab) 30 mg Q12 PO 08/26/17 21:00 09/09/17 20:59 08/30/17 09:06 30 MG Ranolazine (Ranexa ER Tab) 1,000 mg BID PO 08/26/17 21:00 09/25/17 20:59 08/30/17 09:09 1,000 MG Oxycodone HCl (Roxicodone Immediate Rel Tab) 10 mg Q4 PRN PO 08/26/17 19:15 09/09/17 19:14 08/30/17 09:00 10 MG Hydromorphone HCl (Dilaudid Inj) 2 mg Q4H PRN IV 08/26/17 20:00 09/09/17 19:59 08/30/17 03:39 2 MG Insulin Aspart (novoLOG ASPART) SLIDING SCALE ACHS SC 08/26/17 21:00 08/27/17 02:40 DC 08/26/17 21:29 15 UNITS Insulin Aspart (novoLOG ASPART) SLIDING SCALE 0000,0400 IA 08/27/17 00:00 08/27/17 04:01 DC 08/27/17 03:51 9 UNITS Insulin Glargine (Lantus Solostar Pen) 30 units ONE ONCE SC 08/26/17 21:00 08/26/17 21:01 DC 08/26/17 21:29 30 UNITS Insulin Glargine (Lantus Solostar Pen) SEE PROTOCOL TEXT BID SC 08/27/17 09:00 08/27/17 16:04 DC 08/27/17 09:41 15 UNITS Heparin Sodium (Porcine) (Heparin 100 Unit/ml 5ml Flush) 5 ml PRN PRN IV 08/26/17 21:15 09/25/17 21:14 08/29/17 21:10 5 ML Heparin Sodium (Porcine) (Heparin 100 Unit/ml 5ml Flush) 5 ml STK-MED ONCE .ROUTE 08/26/17 21:13 08/26/17 21:14 DC 08/26/17 21:25 5 ML Ceftriaxone Sodium 2 gm/ Dextrose 50 ml @ 100 mls/hr DAILY@2200 IV 08/26/17 23:45 08/27/17 16:13 DC 08/27/17 00:08 100 MLS/HR Insulin Aspart (novoLOG ASPART) SLIDING SCALE Q6 SC 08/27/17 07:00 08/27/17 15:00 DC 08/27/17 12:28 9 UNITS Sodium Chloride 1,000 ml @ 150 mls/hr Q6H40M IV 08/27/17 07:15 08/29/17 08:47 DC 08/29/17 08:25 150 MLS/HR Sodium Chloride 500 ml @ 999 mls/hr Q31M IV 08/27/17 11:30 08/27/17 12:47 DC 08/27/17 13:14 999 MLS/HR Sodium Chloride 500 ml @ 999 mls/hr Q31M IV 08/27/17 13:00 08/27/17 13:30 DC 08/27/17 13:30 999 MLS/HR Sodium Chloride 500 ml @ 999 mls/hr Q31M ONCE IV 08/27/17 15:00 08/27/17 15:30 DC 08/27/17 16:21 999 MLS/HR Sodium Chloride 1,000 ml @ 999 mls/hr Q1H1M IV 08/27/17 15:30 08/27/17 16:30 DC 08/27/17 16:21 999 MLS/HR Morphine Sulfate (MoRPHine SULFATE INJ) 2 mg Q2H PRN IV 08/27/17 15:30 08/28/17 08:45 DC 08/28/17 05:29 2 MG Linezolid 600 mg/ Prmx 300 ml @ 300 mls/hr Q12@0400,1600 IV 08/27/17 16:00 09/06/17 15:59 08/30/17 03:39 300 MLS/HR Norepinephrine Bitartrate 8 mg/ Dextrose 508 ml @ 0 mls/hr Q0M IV 08/27/17 15:45 08/29/17 15:01 DC 08/27/17 16:18 30.7 MLS/HR Ondansetron HCl (Zofran Inj) 4 mg NOW STAT IV 08/27/17 15:55 08/27/17 16:02 DC 08/27/17 16:21 4 MG Insulin Human Regular (Insulin IV Infusion Protocol) 1 ea NOW ONCE N/A 08/27/17 16:01 08/28/17 08:45 DC 08/27/17 18:25 1 EA Insulin Glargine (Lantus Solostar Pen) 25 units BID SC 08/27/17 21:00 08/29/17 07:49 DC 08/29/17 07:37 25 UNITS Insulin Human Regular 250 units/ Sodium Chloride 252.5 ml @ 0 mls/hr DAILY@1130 IV 08/27/17 16:15 08/28/17 08:45 DC 08/27/17 18:24 1.8 MLS/HR Piperacillin Sod/ Tazobactam Sod 4.5 gm/Dextrose 120 ml @ 200 mls/hr NOW ONCE IV 08/27/17 16:15 08/27/17 16:50 DC 08/27/17 18:14 200 MLS/HR Piperacillin Sod/ Tazobactam Sod 4.5 gm/Dextrose 120 ml @ 30 mls/hr Q12H IV 08/28/17 00:00 08/28/17 09:15 DC 08/28/17 00:42 30 MLS/HR Miscellaneous Information (Dc Iv Insulin Infusion) 1 ea 08/28/17@1500 ONCE N/A 08/28/17 15:00 08/28/17 15:01 DC 08/28/17 06:45 1 EA Insulin Aspart (novoLOG ASPART) SLIDING SCALE If CARB RA... ACHS SC 08/28/17 11:00 09/27/17 10:59 08/30/17 08:55 5 UNITS Potassium Chloride (Klor-Con Tab) 40 meq BID PO 08/28/17 10:00 08/28/17 21:01 DC 08/28/17 20:52 40 MEQ Clindamycin Phosphate 900 mg/ Dextrose 106 ml @ 100 mls/hr Q8H IV 08/28/17 10:00 08/28/17 17:29 DC 08/28/17 10:44 100 MLS/HR Piperacillin Sod/ Tazobactam Sod 4.5 gm/Dextrose 120 ml @ 30 mls/hr Q8H IV 08/28/17 10:00 09/07/17 00:00 08/30/17 08:59 30 MLS/HR Perflutren Lipid Microsphere (Definity) 1 ml ONE ONCE IV 08/28/17 09:45 08/28/17 09:46 DC 08/28/17 09:46 1 ML Clindamycin Phosphate 900 mg/ Dextrose 56 ml @ 56 mls/hr Q8H IV 08/28/17 18:00 08/29/17 09:13 DC 08/29/17 01:41 56 MLS/HR Bacitracin (Bacitracin Inj) 50,000 units STK-MED ONCE .ROUTE 08/28/17 13:51 08/28/17 13:52 DC 08/28/17 13:51 50,000 UNITS Gentamicin Sulfate (Gentamicin Sulfate Inj) 80 mg STK-MED ONCE .ROUTE 08/28/17 14:16 08/28/17 14:17 DC 08/28/17 14:16 80 MG Tobramycin Sulfate (Nebcin Pwd) 1.2 gm STK-MED ONCE .ROUTE 08/28/17 14:17 08/28/17 14:18 DC 08/28/17 14:17 1.2 GM Aspirin (Ecotrin Tab) 81 mg QAM PO 08/29/17 09:00 09/28/17 08:59 08/30/17 09:05 81 MG Magnesium Oxide (Mag-Ox Tab) 400 mg Q4 PO 08/29/17 08:00 08/29/17 16:01 DC 08/29/17 17:30 400 MG Sodium Phosphate 15 mmol/Sodium Chloride 255 ml @ 102 mls/hr 0800 ONCE IV 08/29/17 08:00 08/29/17 08:47 DC 08/29/17 08:23 102 MLS/HR Insulin Glargine (Lantus Solostar Pen) 23 units BID SC 08/29/17 09:00 09/28/17 08:59 Future hold 08/30/17 08:56 23 UNITS Clopidogrel Bisulfate (plAVix TAB) 75 mg QAM PO 08/29/17 09:00 09/28/17 08:59 08/30/17 09:04 75 MG Heparin Sodium (Porcine) (Heparin Sq 5000 Unit/0.5ml) 5,000 unit Q12 SQ 08/29/17 09:00 09/28/17 08:59 08/30/17 08:57 5,000 UNIT Alprazolam (Xanax Tab) 0.5 mg TID PO 08/29/17 14:00 09/25/17 20:59 08/30/17 09:00 0.5 MG Isosorbide Mononitrate (Imdur Ext Rel Tab) 45 mg BID PO 08/29/17 21:00 08/30/17 07:26 DC 08/29/17 21:02 45 MG Lisinopril (Zestril Tab) 10 mg QAM PO 08/30/17 09:00 09/29/17 08:59 08/30/17 09:08 10 MG Insulin Glargine (Lantus Solostar Pen) 20 units 08/29/17@2100 SC 08/29/17 21:00 08/29/17 21:01 DC 08/29/17 21:07 20 UNITS Isosorbide Mononitrate (Imdur Ext Rel Tab) 30 mg BID PO 08/30/17 09:00 09/25/17 20:59 08/30/17 09:04 30 MG Bisacodyl (Dulcolax Supp) 10 mg DAILY PRN NH 08/30/17 10:15 09/29/17 10:14 08/30/17 11:12 10 MG Magnesium Sulfate 1 gm/Prmx 100 ml @ 100 mls/hr Q1H IV 08/30/17 11:00 08/30/17 12:59 08/30/17 11:12 100 MLS/HR (Rochelle Roberts, [place]) Objective Vital Signs Date Time Temp Pulse Resp B/P (MAP) Pulse Ox O2 Delivery O2 Flow Rate FiO2 08/30/17 09:00 81 142/72 (95) 08/30/17 08:15 Room Air 08/30/17 07:16 36.9 79 18 96/59 (71) 91 Room Air 08/30/17 00:45 Room Air 08/29/17 23:14 37.3 72 16 107/63 (78) 93 Room Air 08/29/17 19:41 72 14 99/59 (72) 97 Nasal Cannula 1.0 08/29/17 19:30 Nasal Cannula 08/29/17 15:43 36.8 72 18 93/56 (68) 97 Nasal Cannula 1.0 08/29/17 12:15 Room Air (Rochelle Roberts CRNP) Physical Exam Notes: General: no distress Eyes: normal inspection, PERLL Respiratory: chest non tender, clear to auscultation, normal breath sounds, no respiratory distress, no accessory muscle use Cardiac: regular rate and rhythm, no rub or gallop, no murmur, no edema, no jvd GI/: active bowel sounds, no abd pain or tenderness, soft, non distended Extremities: normal range of motion, left hand grasp weaker than right, non tender, left stump in elisha wrap, bloody drainage in drain Neuro/Psych: alert and oriented x 3, normal mood and affect Skin: normal color, dry (Rochelle Roberts CRNP) Laboratory Results Last 24 Hours Test 08/29/17 17:10 08/29/17 20:27 08/30/17 08:33 Bedside Glucose 106 mg/dl 101 mg/dl White Blood Count 4.32 K/uL Red Blood Count 2.91 M/uL Hemoglobin 8.3 g/dL Hematocrit 25.1 % Mean Corpuscular Volume 86.3 fL Mean Corpuscular Hemoglobin 28.5 pg Mean Corpuscular Hemoglobin Concent 33.1 g/dl Platelet Count 205 K/uL Mean Platelet Volume 8.5 fL Neutrophils (%) (Auto) 60.0 % Lymphocytes (%) (Auto) 23.4 % Monocytes (%) (Auto) 10.2 % Eosinophils (%) (Auto) 6.0 % Basophils (%) (Auto) 0.2 % Neutrophils # (Auto) 2.59 K/uL Lymphocytes # (Auto) 1.01 K/uL Monocytes # (Auto) 0.44 K/uL Eosinophils # (Auto) 0.26 K/uL Basophils # (Auto) 0.01 K/uL RDW Standard Deviation 44.7 fL RDW Coefficient of Variation 14.1 % Immature Granulocyte % (Auto) 0.2 % Immature Granulocyte # (Auto) 0.01 K/uL Toxic Vacuolation 1+ Sodium Level 134 mmol/L Potassium Level 3.9 mmol/L Chloride Level 100 mmol/L Carbon Dioxide Level 27 mmol/L Anion Gap 7.0 mmol/L Blood Urea Nitrogen 12 mg/dl Creatinine 0.91 mg/dl Est Creatinine Clear Calc Drug Dose 78.7 ml/min Estimated GFR () 85.9 Estimated GFR (Non- 74.1 BUN/Creatinine Ratio 12.7 Random Glucose 110 mg/dl Calcium Level 8.3 mg/dl Phosphorus Level 4.4 mg/dl Magnesium Level 1.7 mg/dl (Rochelle Roberts, [place]) Assessment and Plan 51 yo woman with left BKA here for debridement with ortho of chronically infected stump. Ms. Freeman was last febrile 08/27. R/o CVA - stroke alert 08/27 SBPs in the 80s. She did not complain particularly of pain, no drainage from knee. She has been having aches and chills over night. Ms. Freeman appeared pale and drowsy when I saw her late morning. 1L fluid bolus ordered and a lactic acid which was WNL. At 1400 she stated that her arm had been weak for 2 hours and a stroke alert was called. CT scan was normal. Dr. De La Cruz from [place] was consulted via telestroke cart. His recommendations were for no TPA because at that point she was 3.5 hours out from last known well. He also felt that her symptoms were hypotension related. - CT - neg for bleed - MRI negative for CVA - MRA -Mild narrowing and area of decreased signal within the petrous portion of the left internal carotid artery - may have contributed to symptoms when aggravated by poor perfusion - in ICU 08/27-08/29 Excessive opioid administration - called by nursing to the room as patient was lethargic, upon arriving patient was obtunded with a sat in the 70s on RA. Administered oxygen and narcan, patient awakened and sats went up to the high 90s. - reduced dilauded by half to 1 mg q4h Hypotension - does not appear to be sepsis related - lactic acid negative - fluid resuscitation - pressors in ICU Recurrent left stump infection ID consulted - changed abx from Rocephin to linezolid and zosyn 08/27 Blood cultures negative Pain control Surgical I&D 08/28 PAM - Creat 2.2, baseline is below 1.0 - fluid resuscitation - resolved T1DM glycemic consult placed by ortho Last Hgb A1C= 13.9, currently 11 CAD aspirin and plavix no ekg changes at this time Hypothyroidism Cont Synthroid DVT proph - heparin subq (Rochelle Roberts CRNP) SENIOR TECHNICAL SPECIALIST Physician Supervision Note: I interviewed and examined the patient. Discussed with Rochelle Roberts SENIOR TECHNICAL SPECIALIST and agree with findings and plan as documented in the note. Any exceptions or clarifications are listed here: None Patient episode in the afternoon of too much opiate medication requiring Narcan she continues to be anemic and slightly lethargic with lower blood pressures We reduced many of her medications including anti-anginal medications due to low blood pressure Cardiac exam was regular lungs were clear abdomen was soft nontender. I evaluated her prior to becoming lethargic from opiate pain control Her hemoglobin is trending downward continue to watch it is likely multifactorial from acute blood loss anemia from postop but also anemia chronic chronic disease. Orthopedics is to continue to direct her care she is maintained on intravenous linezolid and Zosyn infectious disease is following and will to the recommendations for long-term treatment of this ostium myelitis status post debridement will reduce her opiate pain frequency Documented By: Perry Laird (Perry Laird M.D.)
[2017-08-30 15:30] VITALS: O2SAT 93
--- NOTE | 2017-08-30 15:30 | Orthopedic Progress Note ---
Orthopedic Progress Note Date of Service Aug 30, 2017. Subjective Post OP Day: 2 Additional Notes: Pt currently very drowsy. Received 2mg of Dilaudid at 12:30 today. States she's not feeling very well today. She cannot tell me exactly what the sx's are but that she just doesn't feel well. I asked her if it was ok to do the dressing change on her LLE and she said that would be ok. Objective Dressing removed, drains taken out without difficulty. Pt had some pain with drain removal. Stated she was getting nauseated but did not have any episode of emesis. Wound appears benign. Mild erythema noted. No overt drainage. Wound redressed. Date Time Temp Pulse Resp B/P (MAP) Pulse Ox O2 Delivery O2 Flow Rate FiO2 08/30/17 09:00 81 142/72 (95) 08/30/17 08:15 Room Air 08/30/17 07:16 36.9 79 18 96/59 (71) 91 Room Air 08/30/17 00:45 Room Air 08/29/17 23:14 37.3 72 16 107/63 (78) 93 Room Air 08/29/17 19:41 72 14 99/59 (72) 97 Nasal Cannula 1.0 08/29/17 19:30 Nasal Cannula 08/29/17 15:43 36.8 72 18 93/56 (68) 97 Nasal Cannula 1.0 Laboratory Results 24 Hours: Test 08/30/17 08:33 White Blood Count 4.32 K/uL Red Blood Count 2.91 M/uL Hemoglobin 8.3 g/dL Hematocrit 25.1 % Mean Corpuscular Volume 86.3 fL Mean Corpuscular Hemoglobin 28.5 pg Mean Corpuscular Hemoglobin Concent 33.1 g/dl Platelet Count 205 K/uL Mean Platelet Volume 8.5 fL Neutrophils (%) (Auto) 60.0 % Lymphocytes (%) (Auto) 23.4 % Monocytes (%) (Auto) 10.2 % Eosinophils (%) (Auto) 6.0 % Basophils (%) (Auto) 0.2 % Neutrophils # (Auto) 2.59 K/uL Lymphocytes # (Auto) 1.01 K/uL Monocytes # (Auto) 0.44 K/uL Eosinophils # (Auto) 0.26 K/uL Basophils # (Auto) 0.01 K/uL Assessment & Plan Assessment: POD#2 SP REVISION LEFT BKA Sepsis-improved Hypotension-stabilized Left UE weakness Plan: CULTURES SHOWING STAPH SPECIES; CONTINUE ZYVOX /ZOSYN MEDIAL MANAGEMENT PAIN MANAGEMENT- NANY, MS GUSTAVO, DILAUDID DC PLANNING- PER CM.
[2017-08-30] MEDS ORDERED: NALOXONE HCL 0.4 MG/1 ML VIAL/CARP IV STA (15:38)
[2017-08-30] MEDS ORDERED: NALOXONE HCL 0.4 MG/1 ML VIAL/CARP ONE (15:41)
[2017-08-30 15:50] VITALS: BP 160/90; PULSE 70; TEMP 37; O2SAT 97
[2017-08-30 16:15] LABS: HEMATOCRIT 27.3 % (37-47)
[2017-08-30 23:10] VITALS: BP 102/64; PULSE 68; TEMP 36.7; O2SAT 92
[2017-08-31] MEDS: OXYCODONE HCL IR 5 MG TAB (IMMEDIATE RELEASE) PO PRN ×4 (00:43→15:33)
[2017-08-31] MEDS: PIPERACILL/TAZOBAC IV 4.5 GM in DEXTROSE 5% 100ML IV SCH ×3 (01:24→18:02)
[2017-08-31] MEDS: LINEZOLID / D5W 600 MG in PREMIXED IN D5W 300 ML IV SCH ×2 (03:53→15:36)
[2017-08-31 05:42] LABS: BASO % 0.4 %; BASO ABS # 0.02 K/uL (0-0.2); HEMATOCRIT 25.4 % (37-47); IG% 0.2 %; LYMPH % 25.4 %; LYMPH ABS # 1.37 K/uL (1.2-3.4); MEAN CELL VOLUME 86.1 fL (80-100); MEAN CORPUSCULAR HEMOGLOBIN 28.1 pg (25-34); MEAN CORPUSCULAR HGB CONC 32.7 g/dl (32-36); MEAN PLATELET VOLUME 8.6 fL (7.4-10.4); PLATELET COUNT 211 K/uL (130-400); RED BLOOD COUNT 2.95 M/uL (4.2-5.4)
[2017-08-31] MEDS: LEVOTHYROXINE 112 MCG TAB PO SCH (05:51)
[2017-08-31 06:07] LABS: COMPLETE YES
[2017-08-31 06:15] LABS: CREATININE 0.73 mg/dl (0.60-1.20)
[2017-08-31 06:16] LABS: BUN/CREATININE RATIO 10.4 (10-20); CALCIUM 8.1 mg/dl (8.5-10.1); POTASSIUM 3.7 mmol/L (3.5-5.1)
[2017-08-31 07:21] VITALS: BP 115/70; PULSE 68; TEMP 36.9; O2SAT 94
[2017-08-31] MEDS: ALPRAZOLAM 0.5 MG TAB PO SCH (08:23)
[2017-08-31] MEDS: FERROUS SULFATE 325 MG TAB PO SCH ×2 (08:56→18:02)
[2017-08-31] MEDS: ASPIRIN 81 MG ECTAB PO SCH (08:57)
[2017-08-31] MEDS: MoRPHine SULFATE CR 15 MG TAB (MS CONTIN) PO SCH ×2 (08:58→20:58)
[2017-08-31] MEDS: ISOSORBIDE MONONITRATE 30 MG TABCR PO SCH ×2 (08:58→20:59)
[2017-08-31] MEDS: RANOLAZINE 500 MG ER TAB PO SCH ×2 (08:59→21:00)
[2017-08-31] MEDS: CLOPIDOGREL BISULFATE 75 MG TAB PO SCH (08:59)
[2017-08-31] MEDS: CHOLECALCIFEROL 1000 INTER.UNIT TAB PO SCH (09:00)
[2017-08-31] MEDS: LISINOPRIL 10 MG TAB PO SCH (09:01)
[2017-08-31] MEDS: INSULIN ASPART 100 UNITS/ML 3 ML PEN SC SCH ×4 (09:11→21:09)
[2017-08-31] MEDS: INSULIN GLARGINE SOLOSTAR 100 UNITS/ML 3 ML PEN SC SCH ×2 (09:12→21:10)
[2017-08-31] MEDS: HEPARIN SOD 5000 UNIT/0.5 ML CARP SQ SCH ×2 (09:13→21:09)
[2017-08-31 09:42] VITALS: O2SAT 94
--- NOTE | 2017-08-31 10:50 | Orthopedic Progress Note ---
Orthopedic Progress Note Date of Service Aug 31, 2017. Subjective Post OP Day: 3 Additional Notes: Feeling better today. Does not want to take the Xanax as ordered. Usually takes it HS but not regularly. Having pain in the stump today. No other complaints. Objective Dressing removed. Wound benign. Minimal drainage. Date Time Temp Pulse Resp B/P (MAP) Pulse Ox O2 Delivery O2 Flow Rate FiO2 08/31/17 09:42 94 Room Air 08/31/17 07:50 Room Air 08/31/17 07:21 36.9 68 18 115/70 (85) 94 Room Air 08/31/17 00:37 Room Air 08/30/17 23:10 36.7 68 16 102/64 (77) 92 Room Air 08/30/17 15:50 37.0 70 20 160/90 (113) 97 Nasal Cannula 6.0 08/30/17 15:30 93 Room Air Laboratory Results 24 Hours: Test 08/30/17 15:58 08/31/17 05:31 Hematocrit 27.3 % 25.4 % Hemoglobin 9.0 g/dL 8.3 g/dL White Blood Count 5.40 K/uL Red Blood Count 2.95 M/uL Mean Corpuscular Volume 86.1 fL Mean Corpuscular Hemoglobin 28.1 pg Mean Corpuscular Hemoglobin Concent 32.7 g/dl Platelet Count 211 K/uL Mean Platelet Volume 8.6 fL Neutrophils (%) (Auto) 61.0 % Lymphocytes (%) (Auto) 25.4 % Monocytes (%) (Auto) 8.0 % Eosinophils (%) (Auto) 5.0 % Basophils (%) (Auto) 0.4 % Neutrophils # (Auto) 3.30 K/uL Lymphocytes # (Auto) 1.37 K/uL Monocytes # (Auto) 0.43 K/uL Eosinophils # (Auto) 0.27 K/uL Basophils # (Auto) 0.02 K/uL Assessment & Plan Assessment: POD#3 SP REVISION LEFT BKA Sepsis-improved Hypotension-stabilized Left UE weakness - continues with weakness and numbness into the hand but a little better. Plan: DAILY DRESSING CHANGES NO FURTHER SURGERY NEEDED AT THIS TIME CULTURES SHOWING STAPH SPECIES; CONTINUE ZYVOX /ZOSYN PER MED/ID SERVICE MEDIAL MANAGEMENT PAIN MANAGEMENT- JIAN AYON DC PLANNING- PER CM. ORTHO WILL SIGN OFF FOR NOW. PLEASE CALL WITH ANY QUESTIONS
[2017-08-31 11:16] VITALS: BP 150/70; PULSE 74; TEMP 37.4; O2SAT 96
[2017-08-31] MEDS: ONDANSETRON INJ 2 MG/ML 2 ML VIAL IV PRN (11:31)
--- NOTE | 2017-08-31 11:56 | Hospitalist Progress Note ---
Hospitalist Progress Note Date of Service Aug 31, 2017. (Rochelle Roberts CRNP) Subjective Pt evaluation today including: conversation w/ patient, physical exam, chart review, lab review, review of studies, review of inpatient medication list Voiding: no voiding problems Ms. Freeman is feeling better today than yesterday. Her pain is well controlled. She continues to be nauseas but this has been a chronic issue for her for months. She does get a little dizzy when she sits up. Her left hand continues to be numb and weak and now her upper left arm is painful Constitutional: no chills, aches, sweats or fever Respiratory: no sob,cough, sputum, or wheezing Cardiac: no chest pain, palpitations, edema, orthopnea GI: no abdominal pain, vomiting, diarrhea or constipation : no dysuria or hesitancy Extremities: no joint pain or weakness Skin: no rash All Other Systems: Reviewed and Negative (Rochelle Roberts CRNP) Medications Medications Administered Medications (Trade) Dose Ordered Sig/Ochoa Route Start Time Stop Time Status Last Admin Dose Admin Ondansetron HCl (Zofran Inj) 4 mg Q6H PRN IV 08/26/17 19:00 09/25/17 18:59 08/31/17 11:31 4 MG Alprazolam (Xanax Tab) 1 mg TID PO 08/26/17 21:00 08/29/17 12:14 DC 08/29/17 07:36 1 MG Ferrous Sulfate (Feosol Tab) 325 mg BIDM PO 08/27/17 08:30 09/26/17 08:29 08/31/17 08:56 325 MG Isosorbide Mononitrate (Imdur Ext Rel Tab) 60 mg BID PO 08/26/17 21:00 08/29/17 12:14 DC 08/29/17 07:33 60 MG Levothyroxine Sodium (Synthroid Tab) 112 mcg DAILYBB PO 08/27/17 06:00 09/26/17 05:59 08/31/17 05:51 112 MCG Lisinopril (Zestril Tab) 40 mg HS PO 08/26/17 21:00 08/29/17 09:13 DC 08/26/17 21:24 40 MG Promethazine HCl (Phenergan Tab) 25 mg Q6 PRN PO 08/26/17 19:15 09/25/17 19:14 08/28/17 12:00 25 MG Cholecalciferol (Vitamin D Tab) 1,000 inter.unit DAILY PO 08/27/17 09:00 09/26/17 08:59 08/31/17 09:00 1,000 INTER.UNIT Morphine Sulfate (Oramorph Sr Tab) 30 mg Q12 PO 08/26/17 21:00 09/09/17 20:59 08/31/17 08:58 30 MG Ranolazine (Ranexa ER Tab) 1,000 mg BID PO 08/26/17 21:00 09/25/17 20:59 08/31/17 08:59 1,000 MG Oxycodone HCl (Roxicodone Immediate Rel Tab) 10 mg Q4 PRN PO 08/26/17 19:15 09/09/17 19:14 08/31/17 10:36 10 MG Hydromorphone HCl (Dilaudid Inj) 2 mg Q4H PRN IV 08/26/17 20:00 08/30/17 15:44 DC 08/30/17 12:32 2 MG Insulin Aspart (novoLOG ASPART) SLIDING SCALE ACHS SC 08/26/17 21:00 08/27/17 02:40 DC 08/26/17 21:29 15 UNITS Insulin Aspart (novoLOG ASPART) SLIDING SCALE 0000,0400 ND 08/27/17 00:00 08/27/17 04:01 DC 08/27/17 03:51 9 UNITS Insulin Glargine (Lantus Solostar Pen) 30 units ONE ONCE ND 08/26/17 21:00 08/26/17 21:01 DC 08/26/17 21:29 30 UNITS Insulin Glargine (Lantus Solostar Pen) SEE PROTOCOL TEXT BID SC 08/27/17 09:00 08/27/17 16:04 DC 08/27/17 09:41 15 UNITS Heparin Sodium (Porcine) (Heparin 100 Unit/ml 5ml Flush) 5 ml PRN PRN IV 08/26/17 21:15 09/25/17 21:14 08/31/17 05:28 5 ML Heparin Sodium (Porcine) (Heparin 100 Unit/ml 5ml Flush) 5 ml STK-MED ONCE .ROUTE 08/26/17 21:13 08/26/17 21:14 DC 08/26/17 21:25 5 ML Ceftriaxone Sodium 2 gm/ Dextrose 50 ml @ 100 mls/hr DAILY@2200 IV 08/26/17 23:45 08/27/17 16:13 DC 08/27/17 00:08 100 MLS/HR Insulin Aspart (novoLOG ASPART) SLIDING SCALE Q6 SC 08/27/17 07:00 08/27/17 15:00 DC 08/27/17 12:28 9 UNITS Sodium Chloride 1,000 ml @ 150 mls/hr Q6H40M IV 08/27/17 07:15 08/29/17 08:47 DC 08/29/17 08:25 150 MLS/HR Sodium Chloride 500 ml @ 999 mls/hr Q31M IV 08/27/17 11:30 08/27/17 12:47 DC 08/27/17 13:14 999 MLS/HR Sodium Chloride 500 ml @ 999 mls/hr Q31M IV 08/27/17 13:00 08/27/17 13:30 DC 08/27/17 13:30 999 MLS/HR Sodium Chloride 500 ml @ 999 mls/hr Q31M ONCE IV 08/27/17 15:00 08/27/17 15:30 DC 08/27/17 16:21 999 MLS/HR Sodium Chloride 1,000 ml @ 999 mls/hr Q1H1M IV 08/27/17 15:30 08/27/17 16:30 DC 08/27/17 16:21 999 MLS/HR Morphine Sulfate (MoRPHine SULFATE INJ) 2 mg Q2H PRN IV 08/27/17 15:30 08/28/17 08:45 DC 08/28/17 05:29 2 MG Linezolid 600 mg/ Prmx 300 ml @ 300 mls/hr Q12@0400,1600 IV 08/27/17 16:00 09/06/17 15:59 08/31/17 03:53 300 MLS/HR Norepinephrine Bitartrate 8 mg/ Dextrose 508 ml @ 0 mls/hr Q0M IV 08/27/17 15:45 08/29/17 15:01 DC 08/27/17 16:18 30.7 MLS/HR Ondansetron HCl (Zofran Inj) 4 mg NOW STAT IV 08/27/17 15:55 08/27/17 16:02 DC 08/27/17 16:21 4 MG Insulin Human Regular (Insulin IV Infusion Protocol) 1 ea NOW ONCE N/A 08/27/17 16:01 08/28/17 08:45 DC 08/27/17 18:25 1 EA Insulin Glargine (Lantus Solostar Pen) 25 units BID SC 08/27/17 21:00 08/29/17 07:49 DC 08/29/17 07:37 25 UNITS Insulin Human Regular 250 units/ Sodium Chloride 252.5 ml @ 0 mls/hr DAILY@1130 IV 08/27/17 16:15 08/28/17 08:45 DC 08/27/17 18:24 1.8 MLS/HR Piperacillin Sod/ Tazobactam Sod 4.5 gm/Dextrose 120 ml @ 200 mls/hr NOW ONCE IV 08/27/17 16:15 08/27/17 16:50 DC 08/27/17 18:14 200 MLS/HR Piperacillin Sod/ Tazobactam Sod 4.5 gm/Dextrose 120 ml @ 30 mls/hr Q12H IV 08/28/17 00:00 08/28/17 09:15 DC 08/28/17 00:42 30 MLS/HR Miscellaneous Information (Dc Iv Insulin Infusion) 1 ea 08/28/17@1500 ONCE N/A 08/28/17 15:00 08/28/17 15:01 DC 08/28/17 06:45 1 EA Insulin Aspart (novoLOG ASPART) SLIDING SCALE If CARB RA... ACHS SC 08/28/17 11:00 09/27/17 10:59 08/31/17 09:11 6 UNITS Potassium Chloride (Klor-Con Tab) 40 meq BID PO 08/28/17 10:00 08/28/17 21:01 DC 08/28/17 20:52 40 MEQ Clindamycin Phosphate 900 mg/ Dextrose 106 ml @ 100 mls/hr Q8H IV 08/28/17 10:00 08/28/17 17:29 DC 08/28/17 10:44 100 MLS/HR Piperacillin Sod/ Tazobactam Sod 4.5 gm/Dextrose 120 ml @ 30 mls/hr Q8H IV 08/28/17 10:00 09/07/17 00:00 08/31/17 10:35 30 MLS/HR Perflutren Lipid Microsphere (Definity) 1 ml ONE ONCE IV 08/28/17 09:45 08/28/17 09:46 DC 08/28/17 09:46 1 ML Clindamycin Phosphate 900 mg/ Dextrose 56 ml @ 56 mls/hr Q8H IV 08/28/17 18:00 08/29/17 09:13 DC 08/29/17 01:41 56 MLS/HR Bacitracin (Bacitracin Inj) 50,000 units STK-MED ONCE .ROUTE 08/28/17 13:51 08/28/17 13:52 DC 08/28/17 13:51 50,000 UNITS Gentamicin Sulfate (Gentamicin Sulfate Inj) 80 mg STK-MED ONCE .ROUTE 08/28/17 14:16 08/28/17 14:17 DC 08/28/17 14:16 80 MG Tobramycin Sulfate (Nebcin Pwd) 1.2 gm STK-MED ONCE .ROUTE 08/28/17 14:17 08/28/17 14:18 DC 08/28/17 14:17 1.2 GM Aspirin (Ecotrin Tab) 81 mg QAM PO 08/29/17 09:00 09/28/17 08:59 08/31/17 08:57 81 MG Magnesium Oxide (Mag-Ox Tab) 400 mg Q4 PO 08/29/17 08:00 08/29/17 16:01 DC 08/29/17 17:30 400 MG Sodium Phosphate 15 mmol/Sodium Chloride 255 ml @ 102 mls/hr 0800 ONCE IV 08/29/17 08:00 08/29/17 08:47 DC 08/29/17 08:23 102 MLS/HR Insulin Glargine (Lantus Solostar Pen) 23 units BID SC 08/29/17 09:00 08/31/17 10:08 DC 08/31/17 09:12 23 UNITS Clopidogrel Bisulfate (plAVix TAB) 75 mg QAM PO 08/29/17 09:00 09/28/17 08:59 08/31/17 08:59 75 MG Heparin Sodium (Porcine) (Heparin Sq 5000 Unit/0.5ml) 5,000 unit Q12 SQ 08/29/17 09:00 09/28/17 08:59 08/31/17 09:13 5,000 UNIT Alprazolam (Xanax Tab) 0.5 mg TID PO 08/29/17 14:00 09/25/17 20:59 08/30/17 21:53 0.5 MG Isosorbide Mononitrate (Imdur Ext Rel Tab) 45 mg BID PO 08/29/17 21:00 08/30/17 07:26 DC 08/29/17 21:02 45 MG Lisinopril (Zestril Tab) 10 mg QAM PO 08/30/17 09:00 09/29/17 08:59 08/31/17 09:01 10 MG Insulin Glargine (Lantus Solostar Pen) 20 units 08/29/17@2100 SC 08/29/17 21:00 08/29/17 21:01 DC 08/29/17 21:07 20 UNITS Isosorbide Mononitrate (Imdur Ext Rel Tab) 30 mg BID PO 08/30/17 09:00 09/25/17 20:59 08/31/17 08:58 30 MG Bisacodyl (Dulcolax Supp) 10 mg DAILY PRN VT 08/30/17 10:15 09/29/17 10:14 08/30/17 11:12 10 MG Magnesium Sulfate 1 gm/Prmx 100 ml @ 100 mls/hr Q1H IV 08/30/17 11:00 08/30/17 12:59 DC 08/30/17 12:31 100 MLS/HR Naloxone HCl (Narcan Inj) 0.4 mg STK-MED ONCE .ROUTE 08/30/17 15:41 08/30/17 15:42 DC 08/30/17 15:43 0.4 MG (Rochelle Roberts, DEN) Objective Vital Signs Date Time Temp Pulse Resp B/P (MAP) Pulse Ox O2 Delivery O2 Flow Rate FiO2 08/31/17 11:16 37.4 74 22 150/70 (96) 96 Room Air 08/31/17 09:42 94 Room Air 08/31/17 07:50 Room Air 08/31/17 07:21 36.9 68 18 115/70 (85) 94 Room Air 08/31/17 00:37 Room Air 08/30/17 23:10 36.7 68 16 102/64 (77) 92 Room Air 08/30/17 15:50 37.0 70 20 160/90 (113) 97 Nasal Cannula 6.0 08/30/17 15:30 93 Room Air (Rochelle Roberts CRNP) Physical Exam Notes: General: no distress Eyes: normal inspection, PERLL Respiratory: chest non tender, clear to auscultation, normal breath sounds, no respiratory distress, no accessory muscle use Cardiac: regular rate and rhythm, no rub or gallop, no murmur, no edema, no jvd GI/: active bowel sounds, no abd pain or tenderness, soft, non distended Extremities: normal range of motion, left hand weakness, non tender Neuro/Psych: alert and oriented x 3, normal mood and affect Skin: normal color, dry (Rochelle Roberts CRNP) Laboratory Results Last 24 Hours Test 08/30/17 11:55 08/30/17 15:58 08/30/17 17:04 08/30/17 17:37 Bedside Glucose 100 mg/dl 80 mg/dl 62 mg/dl Hemoglobin 9.0 g/dL Hematocrit 27.3 % Test 08/30/17 20:16 08/31/17 05:31 Bedside Glucose 186 mg/dl White Blood Count 5.40 K/uL Red Blood Count 2.95 M/uL Hemoglobin 8.3 g/dL Hematocrit 25.4 % Mean Corpuscular Volume 86.1 fL Mean Corpuscular Hemoglobin 28.1 pg Mean Corpuscular Hemoglobin Concent 32.7 g/dl Platelet Count 211 K/uL Mean Platelet Volume 8.6 fL Neutrophils (%) (Auto) 61.0 % Lymphocytes (%) (Auto) 25.4 % Monocytes (%) (Auto) 8.0 % Eosinophils (%) (Auto) 5.0 % Basophils (%) (Auto) 0.4 % Neutrophils # (Auto) 3.30 K/uL Lymphocytes # (Auto) 1.37 K/uL Monocytes # (Auto) 0.43 K/uL Eosinophils # (Auto) 0.27 K/uL Basophils # (Auto) 0.02 K/uL RDW Standard Deviation 43.9 fL RDW Coefficient of Variation 13.8 % Immature Granulocyte % (Auto) 0.2 % Immature Granulocyte # (Auto) 0.01 K/uL Red Blood Cell Morphology Unremarkable Sodium Level 134 mmol/L Potassium Level 3.7 mmol/L Chloride Level 100 mmol/L Carbon Dioxide Level 27 mmol/L Anion Gap 7.0 mmol/L Blood Urea Nitrogen 8 mg/dl Creatinine 0.73 mg/dl Est Creatinine Clear Calc Drug Dose 98.1 ml/min Estimated GFR () 112.1 Estimated GFR (Non- 96.7 BUN/Creatinine Ratio 10.4 Random Glucose 228 mg/dl Calcium Level 8.1 mg/dl (Rochelle Roberts ., LAMP MECHANIC) Assessment and Plan 51 yo woman with left BKA here for debridement with ortho of chronically infected stump. Ms. Freeman was last febrile 08/27. R/o CVA - stroke alert 08/27 SBPs in the 80s. She did not complain particularly of pain, no drainage from knee. She has been having aches and chills over night. Ms. Freeman appeared pale and drowsy when I saw her late morning. 1L fluid bolus ordered and a lactic acid which was WNL. At 1400 she stated that her arm had been weak for 2 hours and a stroke alert was called. CT scan was normal. Dr. De La Cruz from [place] was consulted via telestroke cart. His recommendations were for no TPA because at that point she was 3.5 hours out from last known well. He also felt that her symptoms were hypotension related. - CT - neg for bleed - MRI negative for CVA - MRA -Mild narrowing and area of decreased signal within the petrous portion of the left internal carotid artery - may have contributed to symptoms when aggravated by poor perfusion - in ICU 08/27-08/29 Excessive opioid administration - 08/30 - called by nursing to the room as patient was lethargic, upon arriving patient was obtunded with a sat in the 70s on RA. Administered oxygen and narcan, patient awakened and sats went up to the high 90s. 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 I agree w/ the dunbar components of her documentation. Pt with continued weakness of left hand and numbness involving all fingers ( both the dorsal aspect & ventral aspect). Some numbness extends proximally towards the elbow. Denies should weakness or forearm weakness. Denies left leg weakness. VSS no fever gen - NAD skin - pallor, left stump in INDY wrap heart - RRR lungs - CTA b/l abd - soft, NT, BS+ ext - left BKA/stump in INDY wrap; right BKA Hb 8.3 A/P: 1. septic shock 2nd to left stump infection 2. left hand weakness/paresthesias - MRI brain negative; thus, symptoms could be from c-spine issue vs more distal neuropathy. Pt declined neck imaging today. Will attempt to get such tomorrow. 3. constipation - dulcolax PO x 1 along with bowel maintenance. 4. left stump infection s/p revision once again - intra-op culture growing staph - await final report; continue broad-spectrum IV abx in meantime 5. acute hypoxic resp failure 2nd to accidental narcotic overdose - resolved; dilaudid dosing has been adjusted 6. change xanax from scheduled to PRN 7. acute/chronic anemia - follow cbc 8. uncontrolled T1DM - pharmacy following Mer CONNELL MD (Garfield Connell MD)
--- NOTE | 2017-08-31 13:51 | Consultant Recommendations ---
Commissioned Security Officer Recommendations Date of Service Aug 31, 2017. Commissioned Security Officer Recommendations Daily dressing changes. Keep dressings clean and dry. Ok to shower. No tub baths. Do not soak wound. Keep leg elevated when at rest. Follow up with Dr Ramos 2 weeks from the day of surgery. Call for appointment. [phone]
[2017-08-31] MEDS ORDERED: ALPRAZOLAM 0.5 MG TAB PO PRN (14:00)
--- NOTE | 2017-08-31 15:16 | Pharmacy Progress Note ---
Glycemic Control Progress Note Date of Service Aug 31, 2017. Scope Glycemic Pharmacist consulted for glycemic control to write orders per [facility] inpatient glycemic control protocol. Objective Accuchecks BSG (last 24hrs): Test 08/30/17 17:04 08/30/17 17:37 08/30/17 20:16 08/31/17 05:31 Bedside Glucose 80 mg/dl (70-90) 62 mg/dl (70-90) 186 mg/dl (70-90) Random Glucose 228 mg/dl (70-99) Test 08/31/17 08:02 08/31/17 12:21 Bedside Glucose 200 mg/dl (70-90) 89 mg/dl (70-90) HbA1c: Test 08/27/17 05:44 Hemoglobin A1c 11.3 % (4.5-5.6) H Recent Pertinent Medications The patient is currently receiving: * Basal insulin: Lantus 23 units every 12 hours * Correctional Insulin: Novolog Correction per scale ACHS Goal Range: Low 100 mg/dL - High 160 mg/dL Correction Factor: 20 mg/dL/unit * Prandial insulin: Per carb ratio of 1 unit per 12 grams CHO consumed Outpatient Anti-Diabetic Meds Toujeo {insulin glargine U-300} 44 units in AM + 22 units in PM Humalog with meals {if she can get samples} Assessment & Plan ASSESSMENT: * See progress note from 08/28/17 for more background info, in short: * Pt receiving SQ basal bolus insulin regimen for hyperglycemia secondary to baseline DM (outpatient regimen on hold),stress/infection & recent surgery * Patient is currently receiving an average of 58 units of insulin per day * 46 units of basal insulin * 12 units of prandial/correctional insulin (minimal PO intake) * BSGs ranging 62 - 186 mg/dl over the past 24hrs * Changes needed to insulin regimen: * AM Fasting BSG = 200 mg/dl. This is above goal range for patient based on inpatient targets and co-morbidities. Cause of elevation unknown. Previous fasting values have been 118, 94 and 110 on a similar basal dose. * Post-prandial BSGs are in range and trending downward throughout the day. Patient had low BSG of 62 mg/dL yesterday after receiving 4 units of Novolog carb coverage. Will loosen carb ratio. PLAN FOR INPATIENT GLYCEMIC CONTROL: * Basal insulin * Lantus 23-25 units SQ BID * 23 units for BSG of 150 mg/dL or less, 25 units for BSG greater than 150 mg/ dL * Bolus insulin - loosen CR * NovoLog per scale ACHS * Goal Range: Low 100 mg/dL - High 160 mg/dL * Correction Factor: 20 mg/dL/unit * Nutritional / Prandial insulin per carb ratio of 1 unit per 12 grams CHO consumed * Please note that the plan above was derived based on current level of insulin resistance and hospital stress. These recommendations are appropriate for inpatient admission only. Plan of care upon discharge will need to be reassessed to avoid potential outpatient hypo/hyperglycemia. Thank you.
[2017-08-31 15:19] VITALS: BP 112/69; PULSE 67; TEMP 37; O2SAT 95
[2017-08-31] MEDS: HYDROmorphone INJ 1 MG/ML SYR IV PRN (18:14)
[2017-08-31] MEDS ORDERED: BISACODYL 5 MG TABEC PO ONE (18:30)
[2017-08-31 23:13] VITALS: BP 111/65; PULSE 67; TEMP 36.7; O2SAT 94
[2017-09-01] MEDS: ONDANSETRON INJ 2 MG/ML 2 ML VIAL IV PRN ×3 (00:02→14:32)
[2017-09-01] MEDS: HYDROmorphone INJ 1 MG/ML SYR IV PRN ×2 (00:03→07:21)
[2017-09-01] MEDS: PIPERACILL/TAZOBAC IV 4.5 GM in DEXTROSE 5% 100ML IV SCH ×2 (02:33→09:52)
[2017-09-01] MEDS: LINEZOLID / D5W 600 MG in PREMIXED IN D5W 300 ML IV SCH ×2 (03:43→18:04)
[2017-09-01] MEDS: OXYCODONE HCL IR 5 MG TAB (IMMEDIATE RELEASE) PO PRN ×3 (03:50→17:18)
[2017-09-01] MEDS: LEVOTHYROXINE 112 MCG TAB PO SCH (05:42)
[2017-09-01 07:16] VITALS: BP 162/85; PULSE 66; TEMP 36.8; O2SAT 98
[2017-09-01 08:52] LABS: HEMATOCRIT 28.4 % (37-47); MEAN CELL VOLUME 87.1 fL (80-100); MEAN CORPUSCULAR HEMOGLOBIN 28.5 pg (25-34); MEAN CORPUSCULAR HGB CONC 32.7 g/dl (32-36); MEAN PLATELET VOLUME 8.4 fL (7.4-10.4); PLATELET COUNT 249 K/uL (130-400); RED BLOOD COUNT 3.26 M/uL (4.2-5.4); WHITE BLOOD COUNT 5.34 K/uL (4.8-10.8)
[2017-09-01] MEDS ORDERED: METHYLNALTREXONE BROMIDE INJ 12 MG/0.6 ML SYR SQ ONE (09:00)
[2017-09-01] MEDS ORDERED: SOD PHOSPHATE/SOD BIPHOSPHATE ENEMA 132 ML BTL PR PRN (09:15)
[2017-09-01 09:16] LABS: CALCIUM 8.5 mg/dl (8.5-10.1); CREATININE 0.6 mg/dl (0.60-1.20); POTASSIUM 3.7 mmol/L (3.5-5.1)
[2017-09-01] MEDS: INSULIN ASPART 100 UNITS/ML 3 ML PEN SC SCH ×4 (09:35→20:55)
[2017-09-01] MEDS: INSULIN GLARGINE SOLOSTAR 100 UNITS/ML 3 ML PEN SC SCH ×2 (09:36→20:56)
[2017-09-01] MEDS: HEPARIN SOD 5000 UNIT/0.5 ML CARP SQ SCH ×2 (09:38→20:56)
[2017-09-01] MEDS: LISINOPRIL 10 MG TAB PO SCH (09:39)
[2017-09-01] MEDS: CHOLECALCIFEROL 1000 INTER.UNIT TAB PO SCH (09:39)
[2017-09-01] MEDS: RANOLAZINE 500 MG ER TAB PO SCH ×2 (09:39→20:53)
[2017-09-01] MEDS: CLOPIDOGREL BISULFATE 75 MG TAB PO SCH (09:40)
[2017-09-01] MEDS: ISOSORBIDE MONONITRATE 30 MG TABCR PO SCH ×2 (09:41→20:54)
[2017-09-01] MEDS: ASPIRIN 81 MG ECTAB PO SCH (09:41)
[2017-09-01] MEDS: FERROUS SULFATE 325 MG TAB PO SCH ×2 (09:42→17:18)
[2017-09-01] MEDS: MoRPHine SULFATE CR 15 MG TAB (MS CONTIN) PO SCH ×2 (09:52→20:53)
--- NOTE | 2017-09-01 14:00 | Hospitalist Progress Note ---
Hospitalist Progress Note Date of Service Sep 01, 2017. (Rochelle Roberts CRNP) Subjective Pt evaluation today including: conversation w/ patient, physical exam, chart review, lab review, review of inpatient medication list Voiding: no voiding problems Ms. Helm pain is largely well controlled although she is experiencing some breakthrough pain at times. ROS Constitutional: no chills, aches, sweats or fever Respiratory: no sob,cough, sputum, or wheezing Cardiac: no chest pain, palpitations, edema, orthopnea or lightheadedness GI: no abdominal pain, nausea, vomiting, diarrhea or constipation : no dysuria or hesitancy Extremities: continues to have right hand numbness/weakness although she feels it has improved somewhat Skin: no rash All Other Systems: Reviewed and Negative (Rochelle Roberts CRNP) Medications Medications (Trade) Dose Ordered Sig/Ochoa Route Start Time Stop Time Status Last Admin Dose Admin Insulin Glargine (Lantus Solostar Pen) SEE PROTOCOL FOR DOSING BID SC 08/31/17 21:00 09/30/17 20:59 09/01/17 09:36 23 UNITS Bisacodyl (Dulcolax Tab) 5 mg NOW ONCE PO 08/31/17 18:30 08/31/17 18:31 DC 08/31/17 19:04 5 MG Methylnaltrexone [place] (Relistor Inj) 12 mg ONE ONCE SQ 09/01/17 09:00 09/01/17 09:19 DC 09/01/17 09:53 12 MG (Rochelle Roberts CRNP) Objective Vital Signs Date Time Temp Pulse Resp B/P (MAP) Pulse Ox O2 Delivery O2 Flow Rate FiO2 09/01/17 07:25 Room Air 09/01/17 07:16 36.8 66 16 162/85 (110) 98 Room Air 09/01/17 07:00 Room Air 08/31/17 23:50 Room Air 08/31/17 23:13 36.7 67 16 111/65 (80) 94 Room Air 08/31/17 15:19 37.0 67 18 112/69 (83) 95 Room Air 08/31/17 15:10 Room Air (Rochelle Roberts CRNP) Physical Exam Notes: General: no distress Eyes: normal inspection, PERLL Respiratory: chest non tender, clear to auscultation, normal breath sounds, no respiratory distress, no accessory muscle use Cardiac: regular rate and rhythm, no rub or gallop, no murmur, no edema, no jvd GI/: active bowel sounds, no abd pain or tenderness, soft, non distended Extremities: normal range of motion, left hand grasp weaker than right, non tender Neuro/Psych: alert and oriented x 3, normal mood and affect Skin: normal color, dry (Rochelle Roberts CRNP) Laboratory Results Last 24 Hours Test 08/31/17 16:50 08/31/17 20:38 09/01/17 08:15 09/01/17 08:34 Bedside Glucose 145 mg/dl 164 mg/dl 111 mg/dl White Blood Count 5.34 K/uL Red Blood Count 3.26 M/uL Hemoglobin 9.3 g/dL Hematocrit 28.4 % Mean Corpuscular Volume 87.1 fL Mean Corpuscular Hemoglobin 28.5 pg Mean Corpuscular Hemoglobin Concent 32.7 g/dl RDW Standard Deviation 44.7 fL RDW Coefficient of Variation 13.9 % Platelet Count 249 K/uL Mean Platelet Volume 8.4 fL Sodium Level 139 mmol/L Potassium Level 3.7 mmol/L Chloride Level 103 mmol/L Carbon Dioxide Level 30 mmol/L Anion Gap 6.0 mmol/L Blood Urea Nitrogen 3 mg/dl Creatinine 0.60 mg/dl Est Creatinine Clear Calc Drug Dose 119.4 ml/min Estimated GFR () 124.0 Estimated GFR (Non- 107.0 BUN/Creatinine Ratio 5.0 Random Glucose 104 mg/dl Calcium Level 8.5 mg/dl (Rochelle Roberts CRNP) Assessment and Plan 51 yo woman with left BKA here for debridement with ortho of chronically infected stump. Ms. Freeman was last febrile 08/27. R/o CVA - stroke alert 08/27 SBPs in the 80s. She did not complain particularly of pain, no drainage from knee. She has been having aches and chills over night. Ms. Freeman appeared pale and drowsy when I saw her late morning. 1L fluid bolus ordered and a lactic acid which was WNL. At 1400 she stated that her arm had been weak for 2 hours and a stroke alert was called. CT scan was normal. Dr. De La Cruz from [place] was consulted via telestroke cart. His recommendations were for no TPA because at that point she was 3.5 hours out from last known well. He also felt that her symptoms were hypotension related. - CT - neg for bleed - MRI negative for CVA - MRA -Mild narrowing and area of decreased signal within the petrous portion of the left internal carotid artery - may have contributed to symptoms when aggravated by poor perfusion - in ICU 08/27-08/29 Excessive opioid administration - 08/30 - called by nursing to the room as patient was lethargic, upon arriving patient was obtunded with a sat in the 70s on RA. Administered oxygen and narcan, patient awakened and sats went up to the high 90s. - reduced dilauded by half to 1 mg q4h - resolved Hypotension - does not appear to be sepsis related - lactic acid negative - fluid resuscitation - pressors in ICU - pressures have improved Recurrent left stump infection ID consulted - changed abx from Rocephin to linezolid and zosyn 08/27 I&D culture grew staph Blood cultures negative Pain control Surgical I&D 08/28 PAM - Creat 2.2, baseline is below 1.0 - fluid resuscitation - resolved Constipation - Relistor x1 dose - patient able to have bowel movement - bowel regimen T1DM glycemic consult placed by ortho Last Hgb A1C= 13.9, currently 11 CAD aspirin and plavix no ekg changes at this time Hypothyroidism Cont Synthroid 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 I agree w/ the dunbar components of her documentation except - patient to have MRI of c-spine, not x-rays. 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 Denies should weakness or forearm weakness. Denies left leg weakness. "I'm anxious to get home." Finally had bowel movement. VSS no fever gen - NAD skin - pallor, left stump in INDY wrap heart - RRR lungs - CTA b/l abd - soft, NT, BS+ ext - left BKA/stump in INDY wrap; right BKA popliteal pulse left 2+ A/P: 1. septic shock 2nd to left stump infection - resolved 2. left hand weakness/paresthesias - MRI brain negative; MRI c-spine today; if that, too, is negative then perhaps the MRI brain was falsely negative or we are dealing with a distal peripheral neuropathy; either way it is improving. 3. constipation - improved s/p relistor; continue bowel regimen. 4. left stump infection s/p revision once again - intra-op culture grew coag neg staph - will check with insurance to see if zyvox would be covered 5. acute hypoxic resp failure 2nd to accidental narcotic overdose - resolved; dilaudid dosing has been adjusted 6. acute/chronic anemia - follow cbc - stable/acceptable values 7. uncontrolled T1DM - pharmacy following - improved d/c tomorrow?? Mer CONNELL MD (Garfield Connell MD)
--- NOTE | 2017-09-01 14:20 | Orthopedic Progress Note ---
Orthopedic Progress Note Date of Service Sep 01, 2017. Subjective Post OP Day: 4 Additional Notes: c/o pain off and on in her BKA stump and also going proximally to the knee. States that she has lost some ROM of the knee due to pain. Arm weakness is about the same. Denies neck, thoracic, lumbar spine pain. Has discussed the fact that she is tired of the multiple surgeries on this BKA stump and feel that if an AKA will help, that she would be amenable to this. Objective Dressings removed. Scant yellow drainage on the dressing on the medial corner. Minimal to no erythema. No knee erythema or swelling currently. Some decreased ROM noted. New dressing applied to wound. Date Time Temp Pulse Resp B/P (MAP) Pulse Ox O2 Delivery O2 Flow Rate FiO2 09/01/17 07:25 Room Air 09/01/17 07:16 36.8 66 16 162/85 (110) 98 Room Air 09/01/17 07:00 Room Air 08/31/17 23:50 Room Air 08/31/17 23:13 36.7 67 16 111/65 (80) 94 Room Air 08/31/17 15:19 37.0 67 18 112/69 (83) 95 Room Air 08/31/17 15:10 Room Air Laboratory Results 24 Hours: Test 09/01/17 08:34 Hematocrit 28.4 % Hemoglobin 9.3 g/dL Assessment & Plan Assessment: POD#5 SP REVISION LEFT BKA Sepsis-improved Hypotension-stabilized Left UE weakness - continues with weakness and numbness into the hand but a little better. Plan: DAILY DRESSING CHANGES NO FURTHER SURGERY NEEDED AT THIS TIME CULTURES SHOWING COAG NEG STAPH; CONTINUE ZYVOX /ZOSYN PER MED/ID SERVICE; DR MOYER HAS DISCUSSED THIS WITH DR VALENCIA. THEY ARE TRYING TO GET PATIENT APPROVED FOR ZYVOX TO GO HOME ON. DISCUSSED ARM WEAKNESS WITH MED SERVICE WELL. PLANNING ON REPEAT MRI OF BRAIN AND POSSIBLY C SPINE IF PT AGREEABLE MEDIAL MANAGEMENT PAIN MANAGEMENT- NANY, DILAUDID; DISCUSSED PAIN CONTROL WITH PT. CONSIDER PAIN MANAGEMENT CONSULT. DC PLANNING- PER CM. Inhouse Planning Pain Management: Dilaudid, Morphine (ORAMORPH SR), PO Tylenol, Oxy IR DVT Prophylaxis: ASA, other (PLAVIX)
--- NOTE | 2017-09-01 14:47 | Progress Note ---
Subjective Date of Service: Sep 01, 2017. Subjective OR culture final, environmental advisor, no sensitivities to follow. blood cultures negative and final. 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 tolerating abx. afebrile. for d/c. no overnight events. Problem List Medical Problems: (1) Hematoma Status: Acute (2) Leg swelling Status: Acute (3) Osteomyelitis Status: Acute Objective Vital Signs Date Time Temp Pulse Resp B/P (MAP) Pulse Ox O2 Delivery O2 Flow Rate FiO2 09/01/17 07:25 Room Air 09/01/17 07:16 36.8 66 16 162/85 (110) 98 Room Air 09/01/17 07:00 Room Air 08/31/17 23:50 Room Air 08/31/17 23:13 36.7 67 16 111/65 (80) 94 Room Air 08/31/17 15:19 37.0 67 18 112/69 (83) 95 Room Air 08/31/17 15:10 Room Air Laboratory Results Item Value Date Time Gram Stain - Final Resulted 08/28/17 1430 Drainage-Deep Knee Left Blood Culture - Preliminary Resulted 08/26/172020 Blood NO GROWTH TO DATE. Blood Culture - Preliminary Resulted 08/26/172015 Blood NO GROWTH TO DATE. Gram Stain - Final Resulted 08/28/17 1430 Drainage-Deep Knee Left Blood Culture - Final Complete 08/26/172020 Blood NO GROWTH Blood Culture - Final Complete 08/26/172015 Blood NO GROWTH Last 24 Hours Test 08/31/17 16:50 08/31/17 20:38 09/01/17 08:15 09/01/17 08:34 Bedside Glucose 145 mg/dl 164 mg/dl 111 mg/dl White Blood Count 5.34 K/uL Red Blood Count 3.26 M/uL Hemoglobin 9.3 g/dL Hematocrit 28.4 % Mean Corpuscular Volume 87.1 fL Mean Corpuscular Hemoglobin 28.5 pg Mean Corpuscular Hemoglobin Concent 32.7 g/dl RDW Standard Deviation 44.7 fL RDW Coefficient of Variation 13.9 % Platelet Count 249 K/uL Mean Platelet Volume 8.4 fL Sodium Level 139 mmol/L Potassium Level 3.7 mmol/L Chloride Level 103 mmol/L Carbon Dioxide Level 30 mmol/L Anion Gap 6.0 mmol/L Blood Urea Nitrogen 3 mg/dl Creatinine 0.60 mg/dl Est Creatinine Clear Calc Drug Dose 119.4 ml/min Estimated GFR () 124.0 Estimated GFR (Non- 107.0 BUN/Creatinine Ratio 5.0 Random Glucose 104 mg/dl Calcium Level 8.5 mg/dl Assessment and Plan (1) Post op infection Assessment & Plan: can continue with po zyvox, would give 4 weeks post op, if able to get insurance coverage for this. no sensitivities for environmental advisor. If no insurance coverage, can continue with ctx at previous dosing. will stop zosyn. ok for d/c when otherwise stable, will plan to follow in office post d/c.
[2017-09-01 15:50] VITALS: BP 165/82; PULSE 69; TEMP 37; O2SAT 95
[2017-09-01] MEDS: PROMETHAZINE HCL 25 MG TAB PO PRN (21:01)
[2017-09-01 23:45] VITALS: BP 166/75; PULSE 70; TEMP 37.1; O2SAT 95
[2017-09-02] MEDS: HYDROmorphone INJ 1 MG/ML SYR IV PRN ×4 (01:08→22:45)
[2017-09-02] MEDS: LINEZOLID / D5W 600 MG in PREMIXED IN D5W 300 ML IV SCH ×2 (04:10→16:08)
[2017-09-02] MEDS: LEVOTHYROXINE 112 MCG TAB PO SCH (05:31)
[2017-09-02] MEDS: OXYCODONE HCL IR 5 MG TAB (IMMEDIATE RELEASE) PO PRN ×2 (05:42→16:08)
[2017-09-02 07:24] VITALS: BP 106/59; PULSE 66; TEMP 36.9; O2SAT 96
--- NOTE | 2017-09-02 07:34 | DIAGNOSTIC IMAGING REPORT ---
MRI OF THE CERVICAL SPINE WITHOUT IV CONTRAST CLINICAL HISTORY: Left hand weakness and numbness. COMPARISON STUDY: No priors. TECHNIQUE: MRI of the cervical spine is performed utilizing various T1 and T2-weighted sequences in the axial and sagittal planes. IV contrast was not administered for this examination. FINDINGS: Cervical spine: Vertebral body height and alignment are maintained throughout the cervical spine. Normal marrow signal intensity is preserved throughout the visualized bony structures. The atlantodental articulation appears maintained. The spinous processes are intact. No destructive bony process is identified. Intervertebral discs: Minimal degenerative disc desiccation is noted. The intervertebral discs are normal in height. Spinal cord: The cervical spinal cord is normal in morphology and signal intensity. C2-C3: Unremarkable. C3-C4: Unremarkable. C4-C5: Minimal facet arthropathy is of no consequence. The central canal and neural foramina are widely patent. C5-C6: There is a tiny posterior disc osteophyte complex. This minimally effaces the ventral subarachnoid space. The neural foramina are patent. C6-C7: There is a tiny posterior disc osteophyte complex. This minimally effaces the ventral subarachnoid space. The neural foramina are patent. C7-T1: There is a posterior disc bulge eccentric to the right. This minimally effaces the ventral aspect of the subarachnoid space on the right. This may abut the transiting right-sided nerve root. The neural foramina are widely patent. T1-T2: There is a disc bulge eccentric to the right. The central canal is clear. The disc bulge likely abuts the transiting right T2 nerve root. The neural foramina are widely patent. Soft tissues: The prevertebral and paraspinous soft tissues are within normal limits. Brain parenchyma: Partially imaged brain parenchyma at the skull base is normal as visualized. IMPRESSION: 1. There is no large disc herniation, central canal stenosis, or high-grade neural foraminal stenosis seen throughout the lumbar spine. 2. There are small disc bulges eccentric to the right at C7-T1 and T1-T2. These may abut the transiting right-sided nerve roots at this level. 3. No destructive bony process is seen. 4. The cervical spinal cord is normal in morphology and signal intensity. Dictated: 09/02/2017 7:25 AM Transcribed: 09/02/2017 7:34 AM [place] Electronically signed by: Bashir Singer M.D. 09/02/2017 8:11 AM Dictated Date/Time: 09/02/2017 7:25 AM
--- NOTE | 2017-09-02 08:20 | Orthopedic Progress Note ---
Orthopedic Progress Note Date of Service Sep 02, 2017. Subjective Denies: chest pain, SOB, nausea / vomiting, light headedness Additional Notes: Overall improved yet still c/o L LE knee and lateral residual limb pain and "pressure". Concerned about recurrence of symptoms and infection. Strongly considering Above Knee Amputation (AKA) L LE. Objective N/V intact, capillary refill less than 2 sec., dressing C/D/I, incision C/D/I, A &O x3 L LE sutures intact and benign appearing incision. No purulence. +Minor edema L LE and lateral L lower leg. + TTP L LE residual limb, + TTP lateral left lower leg, +TTP diffuse left knee. B BKA Date Time Temp Pulse Resp B/P (MAP) Pulse Ox O2 Delivery O2 Flow Rate FiO2 09/02/17 07:24 36.9 66 16 106/59 (75) 96 Room Air 09/01/17 23:45 37.1 70 16 166/75 (105) 95 Room Air 09/01/17 19:30 Room Air 09/01/17 15:50 37.0 69 18 165/82 (109) 95 Room Air Laboratory Results 24 Hours: Test 09/01/17 08:34 Hematocrit 28.4 % Hemoglobin 9.3 g/dL Assessment & Plan Assessment: POD#5 S/P REVISION LEFT BKA Sepsis-improved Hypotension-stabilized Left UE weakness - essentially resolved weakness and numbness of the left hand and arm. Plan: Will consult Dr Bennett regarding vascular status of lower extremities and possibility of Left Above Knee Amputation. DAILY DRESSING CHANGES CULTURES SHOWING COAG NEG STAPH; CONTINUE ZYVOX /ZOSYN PER MED/ID SERVICE; DR MOYER HAS DISCUSSED THIS WITH DR VALENCIA. DISCUSSED ARM WEAKNESS WITH MED SERVICE WELL. PLANNING ON REPEAT MRI OF BRAIN AND POSSIBLY C SPINE IF PT AGREEABLE MEDICAL MANAGEMENT PAIN MANAGEMENT- NANY, DILAUDID; DISCUSSED PAIN CONTROL WITH PT. CONSIDER PAIN MANAGEMENT CONSULT. Inhouse Planning Pain Management: Dilaudid, Morphine (ORAMORPH SR), PO Tylenol, Oxy IR DVT Prophylaxis: ASA, other (PLAVIX)
[2017-09-02 09:22] LABS: MEAN CELL VOLUME 86.8 fL (80-100); MEAN CORPUSCULAR HEMOGLOBIN 27.5 pg (25-34); MEAN CORPUSCULAR HGB CONC 31.6 g/dl (32-36); MEAN PLATELET VOLUME 8.2 fL (7.4-10.4); PLATELET COUNT 304 K/uL (130-400); RED BLOOD COUNT 3.57 M/uL (4.2-5.4)
[2017-09-02] MEDS: HEPARIN SOD 5000 UNIT/0.5 ML CARP SQ SCH ×2 (10:02→21:41)
[2017-09-02] MEDS: INSULIN ASPART 100 UNITS/ML 3 ML PEN SC SCH ×4 (10:04→21:41)
[2017-09-02] MEDS: INSULIN GLARGINE SOLOSTAR 100 UNITS/ML 3 ML PEN SC SCH (10:05)
[2017-09-02] MEDS: FERROUS SULFATE 325 MG TAB PO SCH ×2 (10:06→17:55)
[2017-09-02] MEDS: ASPIRIN 81 MG ECTAB PO SCH (10:07)
[2017-09-02] MEDS: ISOSORBIDE MONONITRATE 30 MG TABCR PO SCH ×2 (10:07→21:06)
[2017-09-02] MEDS: MoRPHine SULFATE CR 15 MG TAB (MS CONTIN) PO SCH ×2 (10:07→21:12)
[2017-09-02] MEDS: CLOPIDOGREL BISULFATE 75 MG TAB PO SCH (10:07)
[2017-09-02] MEDS: CHOLECALCIFEROL 1000 INTER.UNIT TAB PO SCH (10:08)
[2017-09-02] MEDS: LISINOPRIL 10 MG TAB PO SCH (10:08)
[2017-09-02] MEDS: RANOLAZINE 500 MG ER TAB PO SCH ×2 (10:08→21:10)
--- NOTE | 2017-09-02 12:53 | Hospitalist Progress Note ---
Hospitalist Progress Note Date of Service Sep 02, 2017. (Rochelle Roberts CRNP) Subjective Pt evaluation today including: conversation w/ patient, physical exam, chart review, lab review, review of inpatient medication list Voiding: no voiding problems Ms. Freeman is feeling better today. Her pain is under better control than yesterday. She continues to have nausea that is relieved with phenergan, she does not have much appetite. Left hand weakness is improved since yesterday ROS Constitutional: no chills, aches, sweats or fever Respiratory: no sob,cough, sputum, or wheezing Cardiac: no chest pain, palpitations, edema, orthopnea or lightheadedness GI: no abdominal pain, nausea, vomiting, diarrhea or constipation : no dysuria or hesitancy Extremities: see HPI Skin: no rash (Rochelle Roberts CRNP) Medications Medications Administered Medications (Trade) Dose Ordered Sig/Ochoa Route Start Time Stop Time Status Last Admin Dose Admin Ondansetron HCl (Zofran Inj) 4 mg Q6H PRN IV 08/26/17 19:00 09/25/17 18:59 09/01/17 14:32 4 MG Alprazolam (Xanax Tab) 1 mg TID PO 08/26/17 21:00 08/29/17 12:14 DC 08/29/17 07:36 1 MG Ferrous Sulfate (Feosol Tab) 325 mg BIDM PO 08/27/17 08:30 09/26/17 08:29 09/02/17 10:06 325 MG Isosorbide Mononitrate (Imdur Ext Rel Tab) 60 mg BID PO 08/26/17 21:00 08/29/17 12:14 DC 08/29/17 07:33 60 MG Levothyroxine Sodium (Synthroid Tab) 112 mcg DAILYBB PO 08/27/17 06:00 09/26/17 05:59 09/02/17 05:31 112 MCG Lisinopril (Zestril Tab) 40 mg HS PO 08/26/17 21:00 08/29/17 09:13 DC 08/26/17 21:24 40 MG Promethazine HCl (Phenergan Tab) 25 mg Q6 PRN PO 08/26/17 19:15 09/25/17 19:14 09/01/17 21:01 25 MG Senna/Docusate Sodium (Senokot S Tab) 2 tab HS PRN PO 08/26/17 19:15 09/25/17 19:14 08/31/17 21:01 2 TAB Cholecalciferol (Vitamin D Tab) 1,000 inter.unit DAILY PO 08/27/17 09:00 09/26/17 08:59 09/02/17 10:08 1,000 INTER.UNIT Morphine Sulfate (Oramorph Sr Tab) 30 mg Q12 PO 08/26/17 21:00 09/09/17 20:59 09/02/17 10:07 30 MG Ranolazine (Ranexa ER Tab) 1,000 mg BID PO 08/26/17 21:00 09/25/17 20:59 09/02/17 10:08 1,000 MG Oxycodone HCl (Roxicodone Immediate Rel Tab) 10 mg Q4 PRN PO 08/26/17 19:15 09/09/17 19:14 09/02/17 05:42 10 MG Hydromorphone HCl (Dilaudid Inj) 2 mg Q4H PRN IV 08/26/17 20:00 08/30/17 15:44 DC 08/30/17 12:32 2 MG Insulin Aspart (novoLOG ASPART) SLIDING SCALE ACHS SC 08/26/17 21:00 08/27/17 02:40 DC 08/26/17 21:29 15 UNITS Insulin Aspart (novoLOG ASPART) SLIDING SCALE 0000,0400 CT 08/27/17 00:00 08/27/17 04:01 DC 08/27/17 03:51 9 UNITS Insulin Glargine (Lantus Solostar Pen) 30 units ONE ONCE SC 08/26/17 21:00 08/26/17 21:01 DC 08/26/17 21:29 30 UNITS Insulin Glargine (Lantus Solostar Pen) SEE PROTOCOL TEXT BID SC 08/27/17 09:00 08/27/17 16:04 DC 08/27/17 09:41 15 UNITS Heparin Sodium (Porcine) (Heparin 100 Unit/ml 5ml Flush) 5 ml PRN PRN IV 08/26/17 21:15 09/25/17 21:14 09/02/17 12:05 5 ML Heparin Sodium (Porcine) (Heparin 100 Unit/ml 5ml Flush) 5 ml STK-MED ONCE .ROUTE 08/26/17 21:13 08/26/17 21:14 DC 08/26/17 21:25 5 ML Ceftriaxone Sodium 2 gm/ Dextrose 50 ml @ 100 mls/hr DAILY@2200 IV 08/26/17 23:45 08/27/17 16:13 DC 08/27/17 00:08 100 MLS/HR Insulin Aspart (novoLOG ASPART) SLIDING SCALE Q6 SC 08/27/17 07:00 08/27/17 15:00 DC 08/27/17 12:28 9 UNITS Sodium Chloride 1,000 ml @ 150 mls/hr Q6H40M IV 08/27/17 07:15 08/29/17 08:47 DC 08/29/17 08:25 150 MLS/HR Sodium Chloride 500 ml @ 999 mls/hr Q31M IV 08/27/17 11:30 08/27/17 12:47 DC 08/27/17 13:14 999 MLS/HR Sodium Chloride 500 ml @ 999 mls/hr Q31M IV 08/27/17 13:00 08/27/17 13:30 DC 08/27/17 13:30 999 MLS/HR Sodium Chloride 500 ml @ 999 mls/hr Q31M ONCE IV 08/27/17 15:00 08/27/17 15:30 DC 08/27/17 16:21 999 MLS/HR Sodium Chloride 1,000 ml @ 999 mls/hr Q1H1M IV 08/27/17 15:30 08/27/17 16:30 DC 08/27/17 16:21 999 MLS/HR Morphine Sulfate (MoRPHine SULFATE INJ) 2 mg Q2H PRN IV 08/27/17 15:30 08/28/17 08:45 DC 08/28/17 05:29 2 MG Linezolid 600 mg/ Prmx 300 ml @ 300 mls/hr Q12@0400,1600 IV 08/27/17 16:00 09/06/17 15:59 09/02/17 04:10 300 MLS/HR Norepinephrine Bitartrate 8 mg/ Dextrose 508 ml @ 0 mls/hr Q0M IV 08/27/17 15:45 08/29/17 15:01 DC 08/27/17 16:18 30.7 MLS/HR Ondansetron HCl (Zofran Inj) 4 mg NOW STAT IV 08/27/17 15:55 08/27/17 16:02 DC 08/27/17 16:21 4 MG Insulin Human Regular (Insulin IV Infusion Protocol) 1 ea NOW ONCE N/A 08/27/17 16:01 08/28/17 08:45 DC 08/27/17 18:25 1 EA Insulin Glargine (Lantus Solostar Pen) 25 units BID SC 08/27/17 21:00 08/29/17 07:49 DC 08/29/17 07:37 25 UNITS Insulin Human Regular 250 units/ Sodium Chloride 252.5 ml @ 0 mls/hr DAILY@1130 IV 08/27/17 16:15 08/28/17 08:45 DC 08/27/17 18:24 1.8 MLS/HR Piperacillin Sod/ Tazobactam Sod 4.5 gm/Dextrose 120 ml @ 200 mls/hr NOW ONCE IV 08/27/17 16:15 08/27/17 16:50 DC 08/27/17 18:14 200 MLS/HR Piperacillin Sod/ Tazobactam Sod 4.5 gm/Dextrose 120 ml @ 30 mls/hr Q12H IV 08/28/17 00:00 08/28/17 09:15 DC 08/28/17 00:42 30 MLS/HR Miscellaneous Information (Dc Iv Insulin Infusion) 1 ea 08/28/17@1500 ONCE N/A 08/28/17 15:00 08/28/17 15:01 DC 08/28/17 06:45 1 EA Insulin Aspart (novoLOG ASPART) SLIDING SCALE If CARB RA... ACHS SC 08/28/17 11:00 09/27/17 10:59 09/02/17 10:04 4 UNITS Potassium Chloride (Klor-Con Tab) 40 meq BID PO 08/28/17 10:00 08/28/17 21:01 DC 08/28/17 20:52 40 MEQ Clindamycin Phosphate 900 mg/ Dextrose 106 ml @ 100 mls/hr Q8H IV 08/28/17 10:00 08/28/17 17:29 DC 08/28/17 10:44 100 MLS/HR Piperacillin Sod/ Tazobactam Sod 4.5 gm/Dextrose 120 ml @ 30 mls/hr Q8H IV 08/28/17 10:00 09/01/17 14:44 DC 09/01/17 09:52 30 MLS/HR Perflutren Lipid Microsphere (Definity) 1 ml ONE ONCE IV 08/28/17 09:45 08/28/17 09:46 DC 08/28/17 09:46 1 ML Clindamycin Phosphate 900 mg/ Dextrose 56 ml @ 56 mls/hr Q8H IV 08/28/17 18:00 08/29/17 09:13 DC 08/29/17 01:41 56 MLS/HR Bacitracin (Bacitracin Inj) 50,000 units STK-MED ONCE .ROUTE 08/28/17 13:51 08/28/17 13:52 DC 08/28/17 13:51 50,000 UNITS Gentamicin Sulfate (Gentamicin Sulfate Inj) 80 mg STK-MED ONCE .ROUTE 08/28/17 14:16 08/28/17 14:17 DC 08/28/17 14:16 80 MG Tobramycin Sulfate (Nebcin Pwd) 1.2 gm STK-MED ONCE .ROUTE 08/28/17 14:17 08/28/17 14:18 DC 08/28/17 14:17 1.2 GM Aspirin (Ecotrin Tab) 81 mg QAM PO 08/29/17 09:00 09/28/17 08:59 09/02/17 10:07 81 MG Magnesium Oxide (Mag-Ox Tab) 400 mg Q4 PO 08/29/17 08:00 08/29/17 16:01 DC 08/29/17 17:30 400 MG Sodium Phosphate 15 mmol/Sodium Chloride 255 ml @ 102 mls/hr 0800 ONCE IV 08/29/17 08:00 08/29/17 08:47 DC 08/29/17 08:23 102 MLS/HR Insulin Glargine (Lantus Solostar Pen) 23 units BID SC 08/29/17 09:00 08/31/17 10:08 DC 08/31/17 09:12 23 UNITS Clopidogrel Bisulfate (plAVix TAB) 75 mg QAM PO 08/29/17 09:00 09/28/17 08:59 09/02/17 10:07 75 MG Heparin Sodium (Porcine) (Heparin Sq 5000 Unit/0.5ml) 5,000 unit Q12 SQ 08/29/17 09:00 09/28/17 08:59 09/02/17 10:02 5,000 UNIT Alprazolam (Xanax Tab) 0.5 mg TID PO 08/29/17 14:00 08/31/17 12:14 DC 08/30/17 21:53 0.5 MG Isosorbide Mononitrate (Imdur Ext Rel Tab) 45 mg BID PO 08/29/17 21:00 08/30/17 07:26 DC 08/29/17 21:02 45 MG Lisinopril (Zestril Tab) 10 mg QAM PO 08/30/17 09:00 09/29/17 08:59 09/02/17 10:08 10 MG Insulin Glargine (Lantus Solostar Pen) 20 units 08/29/17@2100 SC 08/29/17 21:00 08/29/17 21:01 DC 08/29/17 21:07 20 UNITS Isosorbide Mononitrate (Imdur Ext Rel Tab) 30 mg BID PO 08/30/17 09:00 09/25/17 20:59 09/02/17 10:07 30 MG Bisacodyl (Dulcolax Supp) 10 mg DAILY PRN [place] 08/30/17 10:15 09/29/17 10:14 08/30/17 11:12 10 MG Magnesium Sulfate 1 gm/Prmx 100 ml @ 100 mls/hr Q1H IV 08/30/17 11:00 08/30/17 12:59 DC 08/30/17 12:31 100 MLS/HR Naloxone HCl (Narcan Inj) 0.4 mg STK-MED ONCE .ROUTE 08/30/17 15:41 08/30/17 15:42 DC 08/30/17 15:43 0.4 MG Hydromorphone HCl (Dilaudid Inj) 1 mg Q4H PRN IV 08/30/17 15:45 09/13/17 15:44 09/02/17 12:00 1 MG Insulin Glargine (Lantus Solostar Pen) SEE PROTOCOL FOR DOSING BID SC 08/31/17 21:00 09/30/17 20:59 09/02/17 10:05 20 UNITS Bisacodyl (Dulcolax Tab) 5 mg NOW ONCE PO 08/31/17 18:30 08/31/17 18:31 DC 08/31/17 19:04 5 MG Methylnaltrexone [place] (Relistor Inj) 12 mg ONE ONCE SQ 09/01/17 09:00 09/01/17 09:19 DC 09/01/17 09:53 12 MG (Rochelle Roberts CRNP) Objective Vital Signs Date Time Temp Pulse Resp B/P (MAP) Pulse Ox O2 Delivery O2 Flow Rate FiO2 09/02/17 07:24 36.9 66 16 106/59 (75) 96 Room Air 09/02/17 07:20 Room Air 09/01/17 23:45 37.1 70 16 166/75 (105) 95 Room Air 09/01/17 19:30 Room Air 09/01/17 15:50 37.0 69 18 165/82 (109) 95 Room Air (Rochelle Roberts CRNP) Physical Exam Notes: General: no distress Eyes: normal inspection, PERLL Respiratory: chest non tender, clear to auscultation, normal breath sounds, no respiratory distress, no accessory muscle use Cardiac: regular rate and rhythm, no rub or gallop, no murmur, no edema, no jvd GI/: active bowel sounds, no abd pain or tenderness, soft, non distended Extremities: normal range of motion, left hand weakness, non tender Neuro/Psych: alert and oriented x 3, normal mood and affect Skin: normal color, dry (Rochelle Roberts CRNP) Laboratory Results Last 24 Hours Test 09/01/17 17:06 09/01/17 20:47 09/02/17 08:00 09/02/17 09:07 Bedside Glucose 86 mg/dl 147 mg/dl 131 mg/dl White Blood Count 5.80 K/uL Red Blood Count 3.57 M/uL Hemoglobin 9.8 g/dL Hematocrit 31.0 % Mean Corpuscular Volume 86.8 fL Mean Corpuscular Hemoglobin 27.5 pg Mean Corpuscular Hemoglobin Concent 31.6 g/dl RDW Standard Deviation 44.3 fL RDW Coefficient of Variation 13.8 % Platelet Count 304 K/uL Mean Platelet Volume 8.2 fL (Rochelle Roberts ., DEN) Assessment and Plan 51 yo woman with left BKA here for debridement with ortho of chronically infected stump. Ms. Freeman was last febrile 08/27. R/o CVA - stroke alert 08/27 SBPs in the 80s. She did not complain particularly of pain, no drainage from knee. She has been having aches and chills over night. Ms. Freeman appeared pale and drowsy when I saw her late morning. 1L fluid bolus ordered and a lactic acid which was WNL. At 1400 she stated that her arm had been weak for 2 hours and a stroke alert was called. CT scan was normal. Dr. De La Cruz from [place] was consulted via telestroke cart. His recommendations were for no TPA because at that point she was 3.5 hours out from last known well. He also felt that her symptoms were hypotension related. - CT - neg for bleed - MRI negative for CVA - MRA -Mild narrowing and area of decreased signal within the petrous portion of the left internal carotid artery - may have contributed to symptoms when aggravated by poor perfusion - in ICU 08/27-08/29 Excessive opioid administration - 08/30 - called by nursing to the room as patient was lethargic, upon arriving patient was obtunded with a sat in the 70s on RA. Administered oxygen and narcan, patient awakened and sats went up to the high 90s. - reduced dilauded by half to 1 mg q4h - resolved Hypotension - does not appear to be sepsis related - lactic acid negative - fluid resuscitation - pressors in ICU - resolved Recurrent left stump infection ID consulted - changed abx from Rocephin to linezolid and zosyn 08/27 I&D culture grew staph Blood cultures negative Pain control Surgical I&D 08/28 Consult with vascular surgery per ortho recommendation PAM - Creat 2.2, baseline is below 1.0 - fluid resuscitation - resolved Constipation - Relistor x1 dose - patient able to have bowel movement - bowel regimen T1DM glycemic consult placed by ortho Last Hgb A1C= 13.9, currently 11 CAD aspirin and plavix no ekg changes at this time Hypothyroidism Cont Synthroid Left hand neuropathy - cervical 2 view xray - patient refused DVT proph - heparin subq (Rochelle Roberts CRNP) Attending Note & Attestation: Pt seen/examined, chart reviewed, care plan d/w DEN Rochelle Roberts. I agree w/ the dunbar components of her documentation except - patient had MRI c- spine, not x-rays. Pt's left hand again improved today. She and Dr. Ramos had long discussion this AM about whether to proceed with AKA - she wishes to discuss this with Dr. Bennett from vascular surgery. No other complaints. VSS no fever gen - NAD skin - pallor, left stump in INDY wrap heart - RRR lungs - CTA b/l abd - soft, NT, BS+ ext - left BKA/stump in INDY wrap; right BKA intra-op culture - coag negative staph - SENSITIVE TO oxacillin A/P: 1. septic shock 2nd to left stump infection - resolved 2. left hand weakness/paresthesias - MRI brain negative; MRI c-spine without pathology that would explain her symptoms. At this point there are 2 possibilities - either MRI brain was falsely negative OR she has a resolving peripheral neuropathy. If she did have a stroke event then would continue the asa/plavix. Unsure if changing to aggrenox would be beneficial. Would probably stay with plavix due to CAD history. 3. constipation - improved s/p relistor; continue bowel regimen. 4. left stump infection s/p revision once again - intra-op culture grew coag neg staph; since it is oxacillin sensitive can change back to rocephin daily; stop zyvox. 5. acute hypoxic resp failure 2nd to accidental narcotic overdose - resolved. 6. acute/chronic anemia - follow cbc - stable/acceptable values; Fe supplementation. 7. uncontrolled T1DM - pharmacy following - improved d/c tomorrow if vascular surgery decides to hold off on AKA? Mer CONNELL MD (Garfield Connell MD)
--- NOTE | 2017-09-02 15:10 | Pharmacy Progress Note ---
Glycemic: Assessment & Plan Date of Service Sep 02, 2017. Assessment & Plan The patient is currently receiving 50 units of insulin per day. BSGs ranging 84 - 147 mg/dl over the past 24hrs. * Basal insulin: Lantus 20-23 units every 12 hours * Correctional Insulin: Novolog Correction per scale ACHS Goal Range: Low 120 mg/dL - High 160 mg/dL Correction Factor: 30 mg/dL/unit * Prandial insulin: Per carb ratio of 1 unit per 12 grams CHO consumed Patient's fasting blood sugar was slightly increased today with decreased Lantus dose. Will decrease Lantus dose as patient is very basal heavy currently. Continue current Novolog parameters - patient is very sensitive to Novolog dose. With decrease Lantus dose hope to use more of Novolog. * Please note that the plan above was derived based on current level of insulin resistance and hospital stress. These recommendations are appropriate for inpatient admission only. Plan of care upon discharge will need to be reassessed to avoid potential outpatient hypo/hyperglycemia.
[2017-09-02 15:40] VITALS: BP 184/83; PULSE 79; TEMP 37.2; O2SAT 95
--- NOTE | 2017-09-02 15:40 | Surgery Consultation ---
Consultation Date of Service Sep 02, 2017. Chief Complaint Recurrent infection left BKA stump History of Present Illness The patient is a 51 year old female who was admitted for left BKA. She had previous debridement of the stump and treated with antibiotics. She did have fevers at home prior to admission. Blood cultures have been negative. Since admission she developed an episode of left arm paralysis and loss of control. MRI and CT was negative for stroke. USN did not show any significant carotid occlusive disease. She was subsequently transferred to the intensive care unit. She went back to the OR Wednesday for further debridement of the stump. Cultures from that surgery grew MSSA. Vitals Vital Signs Past 12 Hours Date Time Temp Pulse Resp B/P (MAP) Pulse Ox O2 Delivery O2 Flow Rate FiO2 09/02/17 07:24 36.9 66 16 106/59 (75) 96 Room Air 09/02/17 07:20 Room Air Allergies Coded Allergies: Butorphanol (Verified Allergy, Severe, SHORTNESS OF BREATH, 03/01/17) Spironolactone (Verified Allergy, Mild, RASH, 03/01/17) Atorvastatin (Verified Allergy, Unknown, RASH, 03/01/17) Fenofibrate (Verified Allergy, Unknown, RASH, 03/01/17) Vancomycin (Verified Adverse Reaction, Mild, RASH-DEVYN SYNDROME, 03/01/17) red man syndrome Home Medications Scheduled Alprazolam (Xanax), 1 MG PO TID Aspirin (Aspirin Ec), 81 MG PO QAM Cholecalciferol (Vitamin D), 1 CAP PO DAILY Clopidogrel Bisulfate (Clopidogrel), 75 MG PO QAM Ferrous Sulfate (Ferrous Sulfate), 325 MG PO BIDM Insulin Glargine (Toujeo Solostar), 44 UNITS SC QAM Insulin Glargine (Toujeo Solostar), 22 UNITS SQ QPM Isosorbide Mononitrate Ext Rel (Imdur Ext Rel), 60 MG PO BID Levothyroxine Sodium (Synthroid), 112 MCG PO QAM Lisinopril (Lisinopril), 20 MG PO DAILY Morphine Sulfate (Ms Contin), 30 MG PO Q12 Ranolazine (Ranexa), 1,000 MG PO BID Scheduled PRN Famotidine (Pepcid), 20 MG PO HS PRN for Heartburn Oxycodone HCl (Oxycodone HCl), 5 MG PO Q6H PRN for Pain Oxycodone Hcl (Oxycodone Hcl), 10 MG PO Q6 PRN for Pain Promethazine HCl (Promethazine HCl), 25 MG PO Q6 PRN for Nausea or Vomiting Sennosides-Docusate Sodium (Stool Softener), 2 TAB PO HS PRN for Constipation Problem List Medical Problems: (1) BKA stump complication (2) Diabetes (3) Diabetes mellitus type 1 (4) Diabetic ulcer (5) Exostosis (6) HTN (hypertension) (7) Osteomyelitis (8) Painful amputation stump (9) Peripheral vascular complications (10) Post op infection (11) Pulmonary embolism (12) Sepsis (13) Wound dehiscence, surgical Surgical Problems: (1) H/O: (2) Hx of BKA Surgical / Medical History Hx Cardiac Surgery: Yes (stent placement approx ) Hx Abdominal Surgery: Yes (gallbladder, total hysterectomy ) Hx Cancer Surgery: No Hx Thoracic Surgery: No Hx Orthopedic: Yes (bilateral BKAs) Hx Urinary Tract Surgery: No Family History Diabetes mellitus Social History Smoking Status: Never Smoker Hx Tobacco Use In Past Year?: No Hx Alcohol Use - Type & Amnt: No Hx Substance Use -Type & Amnt: No Review of Systems Constitutional: No chills, No diaphoresis, No fever, No malaise, No weakness, No weight gain, No weight loss, No sweats, No fatigue, No problem reported ENMT: No dental pain, No loss of hearing, No epistaxis, No ear discharge, No ear pain, No gum swelling, No mouth pain, No mouth swelling, No nasal congestion , No nasal pain, No rhinorrhea, No stridor, No tinnitus, No sore throat, No throat swelling, No problem reported Respiratory: No cough, No cyanosis, No POSADA, No hemoptysis, No orthopnea, No PND , No short of breath, No sputum production, No stridor, No wheezing, No dyspnea , No problem reported Cardiovascular: No chest pain, No chest tightness, No chest pressure, No palpitations, No syncope, No diaphoresis, No edema, No intermittent claudication , No orthopnea, No cyanosis, No mumur, No lightheadedness, No paroxysmal nocturnal dyspnea, No problem reported Gastrointestinal: No abdominal pain, No constipation, No diarrhea, No nausea, No vomiting, No anorexia, No appetite changes, No belching, No flatulence, No food intolerance, No hematemesis, No hemorrhoids, No hematochezia, No stool changes, No heartburn, No indigestion, No dysphagia, No rectal bleeding, No problem reported Genitourinary - Female: No dysmenorrhea, No dysuria, No hematuria, No hesitancy , No menorrhagia, No metrorrhagia, No , No rash, No urinary frequency, No urinary incontinence, No urinary retention, No urinary urgency, No vulvadynia , No vaginal bleeding, No vaginal discharge, No vaginal itching, No breast problems, No problem reported Musculoskeletal: + joint pain Neurologic: + weakness (left arm) Psychiatric: No anxiety, No alcohol abuse, No auditory hallucinations, No depression, No drug abuse, No homicidal ideation, No mood changes, No suicidal ideation, No visual hallucinations, No problem reported Additional Comments: obtained from chart Physical Exam Constitutional: General Apperance: heathly-appearing, well-nourished, well-developed Level of Distress: NAD Psychiatric: Mental Status: active & alert, normal mood, normal affect Orientation: oriented except where noted, to time, to place, to person Musculoskeletal: abnormal (left upper extremity weakness) Extremities: Lower Right: pertinent finding (Nicely healed BKA stump) Lower Left: no cyanosis, no edema, no varicosities, no palpable cord, no clubbing, no ulcers, no mottling, pertinent finding (Stump witwhout drainage, tender to palpation, no erythema, suture line dry and intact.) Assessment and Plan Imp: Infection of left BKA stump Plan: She is 5 days since her last surgery. The wound itself looks good. No drainage, no erythema, no dehiscence. I would like to hold off on an AKA at this time and treat her with her long course of antibiotics. It is much easier to use a bk vs an ak prosthesis, therefore would like to try to save the knee joint. If the stump should get erythematous or start draining then would go ahead with an AKA as her next surgery. She understands and agrees with not having the AKA at this time. Thank you very much for letting me participate in the care of this patient.
[2017-09-02 17:58] VITALS: BP 163/83
[2017-09-02] MEDS ORDERED: CEFTRIAXONE SOD INJ 1 GM in DEXTROSE 5% ADD-VANTAGE 50ML 50 ML IV SCH (18:30)
[2017-09-02] MEDS ORDERED: INSULIN GLARGINE SOLOSTAR 100 UNITS/ML 3 ML PEN SC SCH (21:00)
[2017-09-02] MEDS: PROMETHAZINE HCL 25 MG TAB PO PRN (21:05)
[2017-09-02 21:07] VITALS: BP 176/88; PULSE 77
[2017-09-02 22:54] VITALS: BP 175/74; PULSE 74; TEMP 37.1; O2SAT 97
[2017-09-03 00:55] VITALS: BP 124/69
[2017-09-03] MEDS: HYDROmorphone INJ 1 MG/ML SYR IV PRN (05:43)
[2017-09-03] MEDS: LEVOTHYROXINE 112 MCG TAB PO SCH (05:44)
[2017-09-03 07:09] VITALS: BP 168/85; PULSE 72; TEMP 36.9; O2SAT 95
[2017-09-03] MEDS ORDERED: NURSING VERBAL MED ORDER ONE (07:15)
[2017-09-03] MEDS ORDERED: INSULIN GLARGINE SOLOSTAR 100 UNITS/ML 3 ML PEN SC SCH (08:00)
[2017-09-03] MEDS: FERROUS SULFATE 325 MG TAB PO SCH (08:30)
[2017-09-03] MEDS: ASPIRIN 81 MG ECTAB PO SCH (09:00)
[2017-09-03] MEDS: RANOLAZINE 500 MG ER TAB PO SCH (09:00)
[2017-09-03] MEDS: CLOPIDOGREL BISULFATE 75 MG TAB PO SCH (09:00)
[2017-09-03] MEDS: MoRPHine SULFATE CR 15 MG TAB (MS CONTIN) PO SCH (09:00)
[2017-09-03] MEDS: ISOSORBIDE MONONITRATE 30 MG TABCR PO SCH (09:00)
[2017-09-03] MEDS: LISINOPRIL 10 MG TAB PO SCH (09:00)
[2017-09-03] MEDS: CHOLECALCIFEROL 1000 INTER.UNIT TAB PO SCH (09:00)
--- NOTE | 2017-09-03 10:03 | Orthopedic Progress Note ---
Orthopedic Progress Note Date of Service Sep 03, 2017. Subjective Post OP Day: 6 Reports: feeling well, pain controlled w PO medications, Denies: complaints, chest pain, SOB, light headedness Additional Notes: States she wants to go home today if she isn't having the AKA done. She is frustrated with the persistent pain and reoccurring infections. Today, still having some medial sided knee pain. Overall, feels the stump is healing well. Objective N/V intact, capillary refill less than 2 sec., dressing C/D/I, incision C/D/I, A &O x3 Surgical flap of the LLE is well approximated and healing well. No d/c. Gauze from previous dressing is completely dry. No erythema. Mild swelling. The stump seems to be nontender today with dressing change. Date Time Temp Pulse Resp B/P (MAP) Pulse Ox O2 Delivery O2 Flow Rate FiO2 09/03/17 07:09 36.9 72 16 168/85 (112) 95 Room Air 09/03/17 01:00 Room Air 09/03/17 00:55 124/69 (87) 09/02/17 22:54 37.1 74 16 175/74 (107) 97 Room Air 09/02/17 21:07 77 176/88 (117) 09/02/17 17:58 163/83 (109) 09/02/17 16:20 Room Air 09/02/17 15:40 37.2 79 16 184/83 (116) 95 Room Air Assessment & Plan Assessment: POD#6 S/P REVISION LEFT BKA Dressing changed today. The wound looks great with well approximated edges. Minimal swelling. No erythema. Sepsis-improved Hypotension-stabilized Left UE weakness - essentially resolved weakness and numbness of the left hand and arm. Plan: Dr. Bennett saw the patient and recommends continued tx of the BKA revision. If there becomes another complication, he recommends an AKA. Plan at this point will be to continue current antibiotic tx and monitor the patient. Will discuss case with Dr. Ramos. Possible d/c home today if antibiotic choices are set and home tx is ready for patient. DAILY DRESSING CHANGES CULTURES SHOWING COAG NEG STAPH; CONTINUE ZYVOX /ZOSYN PER MED/ID SERVICE; DR MOYER HAS DISCUSSED THIS WITH DR VALENCIA. DISCUSSED ARM WEAKNESS WITH MED SERVICE WELL. PLANNING ON REPEAT MRI OF BRAIN AND POSSIBLY C SPINE IF PT AGREEABLE MEDICAL MANAGEMENT PAIN MANAGEMENT- NANY, DILAUDID; DISCUSSED PAIN CONTROL WITH PT. CONSIDER PAIN MANAGEMENT CONSULT. Inhouse Planning Pain Management: Dilaudid, Morphine (ORAMORPH SR), PO Tylenol, Oxy IR DVT Prophylaxis: ASA, other (PLAVIX)
[2017-09-03] MEDS ORDERED: PLV75 PO (11:20)
[2017-09-03] MEDS ORDERED: LSN20 PO (11:20)
--- NOTE | 2017-09-03 11:27 | Discharge Instructions ---
Discharge Instructions Date of Service Sep 03, 2017. Admission Reason for Admission: Infection Of Bka, Fever Discharge Discharge Diagnosis / Problem: I&D of infected BKA Discharge Goals Goal(s): Improve disease control Activity Recommendations Activity Limitations: resume your previous activity Exercise/Sports Limitations: as tolerated . Instructions / Follow-Up Instructions / Follow-Up * Please schedule follow up with orthopedics. * Dressing on wound should be changed daily. * Continue daily Rocephin and follow up with I&D per discharge instructions. * Because you had an episode of hypotension while here in the hospital, your blood pressure medications were changed. Please take your blood pressure daily and record a log to take to your primary care provider. Please alert your primary care provider if your blood pressure is dropping below 95/55 or if you are experiencing symptoms of low blood pressure such as lightheadedness or dizziness. * You may want to consider imaging of your neck if you hand numbness/pain persists. Current Hospital Diet Patient's current hospital diet: Diabetes Type 1 Diet Discharge Diet Recommended Diet: Diabetes Type 1 Diet Procedures Procedures Performed: 1. REVISION BELOW KNEE AMPUTATION; 2. INCISION AND DRAINAGE ABSCESS LEFT LOWER LEG; 3. APPLICATION ANTIBIOTIC LADEN STIMULAN BEADS Pending Studies Studies pending at discharge: no Laboratory Results Hemoglobin A1c Test 08/27/17 05:44 Range/Units Estimated Average Glucose 278 mg/dl Hemoglobin A1c 11.3 H 4.5-5.6 % Medical Emergencies . Who to Call and When: Medical Emergencies: If at any time you feel your situation is an emergency, please call 911 immediately. . Non-Emergent Contact Non-Emergency issues call your: Primary Care Provider Call Non-Emergent contact if: you have a fever, wound has increased drainage, wound has increased redness, wound has increased pain, you have any medication questions . Past History Medical & Surgical History: (1) Osteomyelitis (2) Painful amputation stump (3) Diabetes mellitus type 1 (4) Hx of BKA (5) HTN (hypertension) . "Provider Documentation" section prepared by Rochelle Roberts. . Executive Chairman Of The Board Recommendations Executive Chairman Of The Board Recommendations: Daily dressing changes. Keep dressings clean and dry. Ok to shower. No tub baths. Do not soak wound. Keep leg elevated when at rest. Follow up with Dr Ramos 2 weeks from the day of surgery. Call for appointment. [phone] VTE Core Measure Inpt VTE Proph given/why not?: Unfractionated heparin SQ
[2017-09-03 11:40] VITALS: BP 168/85; PULSE 72; TEMP 36.9; O2SAT 95
[2017-09-03] MEDS ORDERED: INSULIN ASPART 100 UNITS/ML 3 ML PEN SC SCH (12:00)
[2017-09-03 15:27] VITALS: BP 170/83; PULSE 75; TEMP 37.3; O2SAT 98
--- NOTE | 2017-09-03 15:58 | Discharge Summary ---
Discharge Summary Date of Service Sep 03, 2017. (Rochelle Roberts CRNP) Discharge Summary Admission Date: Aug 26, 2017 at 17:41 Discharge Date: Sep 03, 2017 Discharge Disposition: Home Principal Diagnosis: Left BKA infection Problems/Secondary Diagnoses: Hypotension PAM Left Hand weakness Hypertension Diabetes I Immunizations: Have You Had Influenza Vaccine: Unknown History of Tetanus Vaccine?: Unknown History of Pneumococcal: Unknown History of Hepatitis B Vaccine: Unknown Procedures: I&D Left BKA stump- drainage grew out coag negative staph Cervical Spine MRI IMPRESSION: 1. There is no large disc herniation, central canal stenosis, or high-grade neural foraminal stenosis seen throughout the lumbar spine. 2. There are small disc bulges eccentric to the right at C7-T1 and T1-T2. These may abut the transiting right-sided nerve roots at this level. 3. No destructive bony process is seen. 4. The cervical spinal cord is normal in morphology and signal intensity. Tib/fib x ray IMPRESSION: Operative resection of the erosive changes of the residual distal tibia and fibula as well as placement of antibiotic treatment pellets L femur 2 views IMPRESSION: Moderate degenerative change of the femur with no acute bony abnormality. 2. Soft tissue edematous change. 3. Soft tissue air anterior to the knee similar compared to the prior study. 4. This again raises the possibility of soft tissue air producing infection. 5. No evidence for bony destructive change. Brain MRI IMPRESSION: No acute intracranial abnormality. Carotid Artery US FINDINGS: Antegrade flow is seen in the bilateral vertebral arteries. The brachial pressures are hemodynamically similar. Mild plaque formation bilaterally The peak systolic velocity within the right ICA is 138. The right systolic ratio is 1.38. The peak systolic velocity within the left ICA is 133. The left systolic ratio is 0.98. IMPRESSION: Mild plaque formation bilaterally. 30-40% stenosis of the internal carotid arteries bilaterally. Head MRA IMPRESSION: 1. No evidence of aneurysm 2. Mild narrowing and area of decreased signal within the petrous portion of the left internal carotid artery. It is possible this represents an artifact. As deemed clinically indicated, CT angiography could be obtained in follow-up to determine with this is a real or artifactual finding. Head CT Impression: No acute intracranial abnormality (Rochelle Roberts CRNP) Problems/Secondary Diagnoses: anemia of chronic disease hypothyroidism CAD right sided BKA chronic pain syndrome narcotic induced constipation septic shock 2nd to left BKA stump infection metabolic encephalopathy 2nd to septic shock - resolved Procedures: ECHO: * -- Conclusions -- * 1. Normal LV size. Mild concentric LVH. * 2. Normal LV systolic function. LVEF 65-70%. No regional wall motion abnormalities. * 3. Normal RV size and function. * 4. No significant valvular pathology. * 5. No prior studies for comparison. (Garfield Connell MD) Medication Reconciliation New Medications: Lisinopril (Lisinopril) 20 Mg Tab 20 MG PO DAILY for 30 Days, #30 DOSE Clopidogrel Bisulfate (Clopidogrel) 75 Mg Tab 75 MG PO QAM for 30 Days, #30 TAB Continued Medications: Alprazolam (Xanax) 1 Mg Tab 1 MG PO TID, TAB Aspirin (Aspirin Ec) 81 Mg Tab 81 MG PO QAM Cholecalciferol (Vitamin D) 2,000 Unit Cap 1 CAP PO DAILY, #30 TAB Famotidine (Pepcid) 20 Mg Tab 20 MG PO HS PRN for Heartburn, TAB PT INTERCHANGES WITH ZANTAC AND PRILOSEC Ferrous Sulfate (Ferrous Sulfate) 325 Mg Tab 325 MG PO BIDM for 30 Days, #60 TAB Insulin Glargine (Toujeo Solostar) 300 Unit/Ml Inj 44 UNITS SC QAM Insulin Glargine (Toujeo Solostar) 300 Unit/Ml Inj 22 UNITS SQ QPM Isosorbide Mononitrate Ext Rel (Imdur Ext Rel) 60 Mg Ertab 60 MG PO BID, TAB Levothyroxine Sodium (Synthroid) 112 Mcg Tab 112 MCG PO QAM, TAB Morphine Sulfate (Ms Contin) 30 Mg Tab 30 MG PO Q12, TAB Oxycodone Hcl (Oxycodone Hcl) 10 Mg Tab 10 MG PO Q6 PRN for Pain, #120 Oxycodone HCl (Oxycodone HCl) 5 Mg Tab 5 MG PO Q6H PRN for Pain for 5 Days, #20 TAB Promethazine HCl (Promethazine HCl) 25 Mg Tab 25 MG PO Q6 PRN for Nausea or Vomiting, #120 Ranolazine (Ranexa) 1,000 Mg Tab 1000 MG PO BID Sennosides-Docusate Sodium (Stool Softener) 1 Tab Tab 2 TAB PO HS PRN for Constipation Discontinued Medications: Lisinopril (Lisinopril) 40 Mg Tab 40 MG PO HS Discharge Exam ROS Constitutional: no chills, aches, sweats or fever Respiratory: no sob,cough, sputum, or wheezing Cardiac: no chest pain, palpitations, edema, orthopnea or lightheadedness GI: no abdominal pain, nausea, vomiting, diarrhea or constipation : no dysuria or hesitancy Extremities: left stump pain Skin: no rash PE General: no distress Eyes: normal inspection, PERLL Respiratory: chest non tender, clear to auscultation, normal breath sounds, no respiratory distress, no accessory muscle use Cardiac: regular rate and rhythm, no rub or gallop, no murmur, no edema, no jvd GI/: active bowel sounds, no abd pain or tenderness, soft, non distended Extremities: normal range of motion, normal strength, non tender, left stump dressing dry and intact no drainage Neuro/Psych: alert and oriented x 3, normal mood and affect Skin: normal color, dry (Rochelle Roberts, DEN) Hospital Course 51 yo woman with history of b/l BKA, HTN, T1DM, hypothyroidism, and CAD here for debridement with ortho of chronically infected stump. She has had surgical I&D of this BKA 6 times over the last two years. She follows with ID outpatient and has had multiple courses of IV abx at home. Ms. Freeman was last febrile 08/27. Recurrent left stump infection ID consulted - changed abx from Rocephin to linezolid and zosyn 08/27 I&D culture grew staph - she will resume Rocephin outpatient as sensitivities showed this is appropriate and linezolid is prohibitively expensive. Blood cultures negative Surgical I&D 08/[address] Ramos Consult with vascular surgery per ortho recommendation - Dr. Bennett did not feel she was a candidate for AKA as she had just had the I&D and was not experiencing infection now R/o CVA - stroke alert 08/27 SBPs in the 80s. She did not complain particularly of pain, no drainage from knee. She had been having aches and chills over the preceding night. Ms. Freeman appeared pale and drowsy that morning. 1L fluid bolus ordered and a lactic acid which was WNL. At 1400 she stated that her arm had been weak for 2 hours and a stroke alert was called. CT scan was normal. Dr. De La Cruz from [place] was consulted via telestroke cart. His recommendations were for no TPA because at that point she was 3.5 hours out from last known well. He also felt that her symptoms were hypotension related. - CT - neg for bleed - MRI negative for CVA - MRA -Mild narrowing and area of decreased signal within the petrous portion of the left internal carotid artery - may have contributed to symptoms when aggravated by poor perfusion - in ICU 08/27-08/29 Hypotension 08/27 - As related above, just prior to stroke alert, patient's blood pressures had been trending downward since beam dyer recessed vat 08/27 down to SBP 70s after arriving in ICU for stroke alert - did not appear to be sepsis related - lactic acid negative - fluid resuscitation - pressors in ICU - resolved Excessive opioid administration - 08/30 - called by nursing to the room as patient was lethargic, upon arriving patient was obtunded with a sat in the 70s on RA. Administered oxygen and narcan, patient awakened and sats went up to the high 90s. - reduced dilauded by half to 1 mg q4h - resolved PAM - Creat 2.2, baseline is below 1.0 - fluid resuscitation - resolved Constipation - Relistor x1 dose - patient able to have bowel movement - bowel regimen - resolved T1DM glycemic consult placed by ortho Last Hgb A1C= 13.9, currently 11 sliding scale, Lantus CAD aspirin and plavix no ekg changes at this time Hypothyroidism Cont Synthroid Left hand neuropathy - cervical MRI - normal - likely a peripheral neuropathy DVT proph - heparin subq Total Time Spent: Greater than 30 minutes This includes examination of the patient, discharge planning, medication reconciliation, and communication with other providers. (Rochelle Roberts ., DEN) Attending Discharge Note & Attestation: Pt seen/examined, chart reviewed, discharge care plan d/w DEN Roberts. I agree w/ the dunbar components of her discharge summary. 51yo female with long-standing T1DM, CAD, and b/l BKA status with multiple infections of the left BKA stump requiring I/D & revision on several past occasions - admitted initially to the orthopedic service for management of another infection of the left BKA stump. On hospital day #2 she had an episode of altered mental status along with hypotension and left arm weakness. Transferred to the ICU where she received pressors for presumed septic shock. Stroke alert was called due to the left arm weakness but felt to be due to the hypotension. On hospital day #3 she underwent I/D of the left BKA stump along with revision. During her stay she received broad-spectrum IV antibiotics. Blood cultures remained negative. Intra-op culture from the left BKA stump grew coag-negative staph sensitive to oxacillin. Dr. Steele from [place] recommended a course of IV rocephin following discharge via her central port. The patient's left hand weakness improved but persisted during her stay. MRI brain was negative for stroke. MRI cervical spine did not show nerve impingement to account for her symptoms. 2 possibilities exist - either the MRI head did not identify an area of small stroke OR she has a peripheral neuropathy. This will require careful follow-up after discharge. The patient is hoping that she can have an elective AKA as she is concerned that her cycle of recurrent stump infections will continue. She will be seeing general surgery after discharge. Discharge exam - gen - nad skin - pallor heart - RRR lungs - CTA b/l abd - soft ext - right BKA; left BKA stump - sutures intact, no drainage, mild stump swelling and mild warmth but no redness; mild tenderness to palpation chest - port in place, clean Garfield Connell MD (Garfield Connell MD) Discharge Instructions Please refer to the electronic Patient Visit Report (Discharge Instructions) for additional information. (Rochelle Roberts CRNP) Follow-Up Dr. Ennis next week Continue her home health (Rochelle Roberts CRNP) Additional Copies To Dom Ramos D.O.; Charles Montiel M.D.; Jennifer. Steele D.O.; Errol Ennis M.D.
--- NOTE | 2017-09-07 08:41 | EDITING REQUIRED CODING QUERY ---
SEPSIS To promote full compliance with coding requirements relating to patient care, physician participation is requested in all cases of life educator uncertainty. Please assist us with the question(s) below: In responding to this query, please exercise your independent professional judgement. The fact that a question is asked does not imply that any particular answer is desired or expected. We appreciate your clarification on this issue. Patient admitted with amputation stump infection,metabolic encephalopathy, septic shock. OP- revision amputation. Please document the diagnosis you were treating. Thank you! Alexia Colbert [facility] ( )Bacteremia (Nonspecific laboratory finding of bacteria in the blood) Specify Organism ( ) Present on Admission ( ) Not present on admission ( ) Unable to clinically determine ( ) Septicemia (Systemic disease associated with the presence of pathogenic microorganisms in the blood): Specify Organism ( ) Present on Admission ( ) Not present on admission ( ) Unable to clinically determine ( ) Sepsis Specify Organism Specify Associated Condition/Diagnosis ( ) Present on Admission ( ) Not present on admission ( ) Unable to clinically determine ( ) Severe Sepsis (Sepsis associated with acute organ dysfunction) Specify Organism Specify Associated Condition/Diagnosis ( ) Present on Admission ( ) Not present on admission ( ) Unable to clinically determine (x ) Septic Shock (Severe sepsis with acute circulatory failure, unexplained by other causes) ( ) Present on Admission ( x) Not present on admission ( ) Unable to clinically determine ( ) Other, patient has:
== END 2017-09-03 16:20 | disposition home health service (06) | DRG 474 ==
LOC: C.MSN 17:41 → C.MSICU 08-27 15:09 → EDBEDREQ 08-29 09:14 → ENRESERV 08-29 09:22 → C.MSN 08-29 10:30
PROVIDERS: ADMIT Orthopaedic Surgery Sports Medicine; ATTEND Orthopaedic Surgery Sports Medicine
PROC: 0Y6D0Z3 Detachment at Left Upper Leg, Low, Open Approach (ICD-10-PCS; principal; 2017-08-28 14:00)
PROC: 0J9P0ZZ Drainage of Left Lower Leg Subcutaneous Tissue and Fascia, Open Approach (ICD-10-PCS; principal; 2017-08-28 14:00)
PROC: 3E02329 Introduction of Other Anti-infective into Muscle, Percutaneous Approach (ICD-10-PCS; principal; 2017-08-28 14:00)
DX: T87.44 Infection of amputation stump, left lower extremity (principal); G93.41 Metabolic encephalopathy; J96.01 Acute respiratory failure with hypoxia; L02.416 Cutaneous abscess of left lower limb; R65.21 Severe sepsis with septic shock; I12.9 Hypertensive chronic kidney disease with stage 1 through stage 4 chronic kidney disease, or unspecified chronic kidney disease; T40.2X1A Poisoning by other opioids, accidental (unintentional), initial encounter; E03.9 Hypothyroidism, unspecified; T87.89 Other complications of amputation stump; T40.605A Adverse effect of unspecified narcotics, initial encounter; G89.4 Chronic pain syndrome; E10.40 Type 1 diabetes mellitus with diabetic neuropathy, unspecified; I95.9 Hypotension, unspecified; I25.10 Atherosclerotic heart disease of native coronary artery without angina pectoris; K59.03 Drug induced constipation; B95.8 Unspecified staphylococcus as the cause of diseases classified elsewhere; R29.702 NIHSS score 2; G62.9 Polyneuropathy, unspecified; N18.3 Chronic kidney disease, stage 3 (moderate); Z89.512 Acquired absence of left leg below knee; D63.8 Anemia in other chronic diseases classified elsewhere; Z89.511 Acquired absence of right leg below knee; Y92.230 Patient room in hospital as the place of occurrence of the external cause; Y92.009 Unspecified place in unspecified non-institutional (private) residence as the place of occurrence of the external cause; Y83.5 Amputation of limb(s) as the cause of abnormal reaction of the patient, or of later complication, without mention of misadventure at the time of the procedure; Z86.19 Personal history of other infectious and parasitic diseases

== ENCOUNTER 2025-05-31 06:45 | Observation (INO) ==
[2025-05-31 07:45] LABS: Hematocrit (blood only) 32.9 % (37.0-47.0); Hemoglobin 11.0 g/dl (12.0-16.0); Mean Corpuscular Hemoglobin 28.6 pg (25.0-34.0); Mean Corpuscular Volume 85.7 fL (80.0-100.0); Platelet Count 171 K/uL (130-400); RDW Standard Deviation 42.1 fL (36.4-46.3); Red Blood Count 3.84 M/uL (4.20-5.40); White Blood Count 4.59 K/ul (4.8-10.8)
--- NOTE | 2025-05-31 08:02 | History & Physical Bridge Note ---
Date of Service May 31, 2025 History & Physical Bridge Note I have examined the patient, reviewed the History & Physical and in the interval since the performance of the History & Physical I have noted the following changes of clinical significance: no changes noted
--- NOTE | 2025-05-31 08:02 | Pre Anesthesia Assessment ---
Date of Service May 31, 2025 Pre Sedation Assessment Vital Signs Pulse Resp Pulse Ox O2 Del Method 05/31/25 07:01 70 18 99 Room Air Cardiovascular + regular rate Respiratory + respiratory effort normal Pre-Sedation Airway Assessment Smoking Status: Never smoker Hx Sleep Apnea: No Hx Difficult Intubation: No Short, Thick Neck: No Thyromental Distance: > or= 3.5 Finger Breadths Oral Cavity: + Dentures Mallampati Class: III ASA: ASA3 NPO Status Date of Last Intake of Fluids: 05/31/25 Time of Last Intake of Fluids: 05:30 Last Oral Intake of Fluids Comment: sips of water with meds Date of Last Intake of Solid Food: 05/30/25 Time of Last Intake of Solid Foods: 22:00 Procedure Planning Contraindications for Sedation: none Current Medications Reviewed: Yes Notes The planned sedation has been discussed with the patient. Informed Consent was obtained. I have identified the patient, determined the appropriateness of se dation and have assessed the patient immediately prior to the procedure. All medicine(s) and interventions are by my order.
[2025-05-31 08:03] LABS: Anion Gap 8.0 (3-11); Blood Urea Nitrogen 16.0 mg/dl (6-23); Calcium 9.4 mg/dl (8.6-10.3); Carbon Dioxide 27.0 mmol/L (21-32); Chloride 103.0 mmol/L (98-107); Creatinine Clr Calc Pharmacy 70.5 ml/min; Potassium 3.2 mmol/L (3.5-5.1); Sodium 138.0 mmol/L (136-145)
[2025-05-31] MEDS: ASPIRIN 81 MG CHEW ONE (08:30)
[2025-05-31] MEDS: IODIXANOL (VISIPAQUE) 320 MG/ML 100ML IV ONE (08:38)
[2025-05-31] MEDS: NITROGLYCERIN/D5W 100MCG/ML 20ML SYR ONE (08:38)
[2025-05-31] MEDS: niCARdipine 2,000 MCG/20 ML SYR ONE (08:38)
[2025-05-31] MEDS: HEPARIN (PORCINE) 1000 UNIT/ML 10 ML (CATH LAB USE ONLY) ONE ×2 (11:51→11:52)
[2025-05-31] MEDS: OPTIRAY 350 ONE (11:52)
[2025-05-31] MEDS: ONDANSETRON INJ 2 MG/ML 2 ML VIAL ONE (11:52)
[2025-05-31] MEDS: diphenhydrAMINE 50 MG/ML VIAL ONE (11:53)
[2025-05-31] MEDS: MIDAZOLAM HCL 1 MG/ML 2ML VIAL ONE ×5 (11:53→11:54)
[2025-05-31] MEDS: CLOPIDOGREL BISULFATE 300 MG TAB ONE (12:09)
--- NOTE | 2025-05-31 12:17 | Post Anesthesia Assessment ---
Date of Service May 31, 2025 Post Sedation Assessment Vital Signs Pulse Resp Pulse Ox O2 Del Method 05/31/25 07:01 70 18 99 Room Air Recovery Score Activity: Moves 4 extremities Respiration: Deep Breath/Cough Circulation: +/-20% PreAnes Value Consciousness: Fully Awake Oxygen Saturation: O2 needed for >90% Discharge Sedation Level of Care: Fast Track Phase II
[2025-05-31] MEDS ORDERED: ACETAMINOPHEN 325 MG TAB PO PRN (12:45)
[2025-05-31] MEDS ORDERED: ONDANSETRON INJ 2 MG/ML 2 ML VIAL IV PRN (12:45)
[2025-05-31] MEDS ORDERED: DEXTROSE 50% 50 ML SYRINGE IV PRN (12:51)
[2025-05-31] MEDS ORDERED: GLUCOSE 40% GEL 15 GM TUBE PO PRN (12:51)
[2025-05-31] MEDS ORDERED: PHARMACY GLYCEMIC MGMT CONSULT PRN (12:51)
[2025-05-31] MEDS ORDERED: GLUCOSE 10 TAB/TUBE PO PRN (12:51)
[2025-05-31] MEDS ORDERED: GLUCAGON FOR INJ 1 MG VIAL SQ PRN (12:51)
[2025-05-31] MEDS ORDERED: NON-FORMULARY MEDICATION (Insulin Glargine U-300 Conc [Toujeo Max U-300 Solostar] 300 unit SQ SCH (13:00)
--- NOTE | 2025-05-31 14:07 | Cardiac Catheterization ---
[facility] Data: Leadite Worker Cardiac Status Clinical evaluation leading to the procedure CAD Presenation: Unstable angina Anginal Classification: CCS III Diagnostic Physicians Name: Tomas Christian MD Closure Device Recommendations: PCI without planned CABG Cardiac Cath Procedure Full Procedure Date May 31, 2025 Pre-Procedure Diagnosis Pre-Procedure Diagnosis: Angina AUC Score AUC Score: 7 Post-Procedure Diagnosis Post-Procedure Diagnosis: Severe CAD, Successful PCI and Normal Intracardiac Pressures Procedure(s) Performed Procedure(s) Performed: Coronary Angiography, Left Heart Cath, Drug Eluting Stent, Ultrasound Guided Vascular Access and Procedure (Intravascular lithotripsy) Grades 1 Thru 6 Home Teacher Tomas Christian MD Steel Pickler(s) Ramiro Estimated Blood Loss Estimated Blood Loss: 40 Medication(s) Medication(s): Clopidogrel, Fentanyl, Heparin, Lidocaine 1%, Nicardipine, Nitroglycerin and Versed Summary of Findings Indication: History of multivessel CAD post multiple prior stents at [facility]. Here with recurrent chest pain concerning for accelerating angina. Access: 5 Fr slender right radial artery under ultrasound guidance. Transition to femoral access due to small radial artery spasm. 6 Fr right SALES RESEARCH ANALYST under ultrasound guidance with micropuncture Catheters: Marana, EBU 3.5 guide, JR4 guide Findings: LM -normal caliber, no significant disease LAD -medium caliber, earlymid segment stent widely patent. Remainder of mid segment with 30% diffuse disease. Earlydistal vessel just after takeoff of D3 angulated with 40% stenosis. Short distal stent widely patent. Remainder of distal vessel small, diffusely diseased and wraps around apex. Small D1 with 90% ostial. Small D2 without significant disease. Circumflex -medium caliber, 80% heavily calcified proximal stenosis, 90% mid- distal stenosis after takeoff of OM 2. 40-50% distal stenosis. Medium left PLB 50% proximal stenosis. RCA -medium caliber, calcified, 30% proximal disease, patent stent changed from proximal through mid and distal RCA into PDA. Focal 80-90% mid in-stent restenosis at takeoff of acute marginal, 30% diffuse distal into PDA in-stent restenosis. LVEDP -15 -- PCI -- Antithrombotic therapy: Heparin, clopidogrel Procedure: Left main cannulated with EBU 3.5 guide Pre-procedure flow PATRICK 3 Airdox Fitter 50 wire passed across lesion into distal vessel With the aid of a GuideLiner mid to distal circumflex predilated with 2.5 compliant balloon Proximal circumflex further dilated with 3.0 balloon Attempt made to dilate with intravascular lithotripsy if unable to pass catheter Further dilation with 2.5 balloon and with distal positioning of GuideLiner able to pass 2.5 x 18 mm [place] stent into mid to distal circumflex Stent deployed and postdilated with stent balloon to high atmospheres After additional proximalmid dilation with 2.5 balloon was able to deploy 2.5 x 15 mm Glynn stent to proximal to mid circumflex Stent postdilated with 3.0 NC balloon to high atmospheres Gentle balloon inflation to distal circumflex downstream from stent prior to left PLB. Unable to place additional stent. IC vasodilators administered for spasm Post procedure PATRICK 3 flow, stents well expanded with minimal residual stenosis and no apparent cardiac complications. RCA cannulated with JR4 guide [place] blue wire passed into distal vessel across mid RCA stenosis Mid RCA dilated with 2.5 balloon Mid RCA further dilated with 3.0 shockwave balloon (40 pulses) Mid RCA in-stent restenosis stented with 3.0 x 15 mm [place] drug-eluting stent Unable to pass 3.5 NC balloon to new stent. Additional dilation in early mid RCA. New stent postdilated with short 2.75 NC balloon. IC vasodilators administered for spasm Post procedure PATRICK 3 flow, stents well expanded with minimal residual stenosis and no apparent cardiac complications. Arterial Closure: TR band Summary: 1. Multivessel coronary artery disease -Patent proximal RCA to right PDA stents with 80-90% mid RCA in-stent restenosis Heavily calcified 80% proximal circumflex, 90% mid to distal circumflex. Late distal circumflex and proximal left PLB with 40-50% stenosis Widely patent proximal and distal LAD stents. 40% mid LAD. 90% ostial small D1 2. Normal intracardiac filling pressure 3. Successful PCI of proximal and mid to distal circumflex with 2 nonoverlapping drug-eluting stents (2.5 x 15 [place] postdilated with 3.0 NC, 2.5 x 18 mm Glynn). 4. Successful PCI of mid RCA in-stent restenosis with intravascular lithotripsy new overlapping drug-eluting stent (3.0 x 15 mm Glynn). Recommendations: To PCU for continued monitoring Loaded with clopidogrel 600 mg in Leadite Worker Continue dual-antiplatelet therapy for at least 6 months, consider extended P2 Y12 in the setting of overlapping stents Continue statin, and ASCVD risk factor modification Hemodynamics Rest Ao:: 137/57 Final Ao: 159/71 LV: 162/15 Recommendations Recommendations: PCI without planned CABG Radiation Exposure (mGy) 6232 Contrast (mls) 190 Anesthesia Moderate 0533-8739 Procedural Complication(s) None Disposition PCU I attest to the content of the Intraoperative Record and any orders documented therein. Any exceptions are noted below. [facility] Card Cath Procedure Codes Cardiac Catheterization Procedure 1: Cardiovascular Cath Procedures: 71465 Coronaries and LHC (+/-LV) Therapeutic Services & Ancillary Procedure 1: Cardiovascular Tx and Anc Procedures: 73247 Ultrasonic Guidance Vascular Access Procedure 2: Cardiovascular Tx and Anc Procedures: 64069 Ultrasonic Guidance Vascular Access Moderate Sedation Procedure 1: Sedation/Anesthesia: 71271 Mod Sedation by the same physician;Init15 Min Child Age 5 & Up Procedure 2: Sedation/Anesthesia: 97729 Mod Sedation by the same physician; Ea [id number] Minutes Angioplasty Procedure 1: Cardiovascular Angioplasty Procedures: 11349 Perq Trluml Coronry Lithotrp Stenting Procedure 1: Cardiovascular Stent Procedures: 04967 Perc transcatheter placement of intracoronary stent(s), with ang Procedure 2: Cardiovascular Stent Procedures: 24095 Ea addl branch of a major coronary artery PG Care Time/CCT Total # of Minutes Spent Total Time Spent with Patient: Total time spent is greater than 50% in coordination of care (as documented) at patient's floor/unit and/or counseling patient:
[2025-05-31] MEDS: INSULIN ASPART PER UNIT CHARGE SC SCH (14:42)
--- NOTE | 2025-05-31 15:14 | Pharmacy Report ---
Pharmacy Glycemic Short Note 2 - Date of Service May 31, 2025 - Glycemic Short BSG Results (Last 24 hours): 05/31/25 05/31/25 07:25 14:40 POC Glucose 90 Fasting Glucose 126 H OUTPATIENT ANTIDIABETIC REGIMEN: * Mounjaro 10 mg SQ weekly, Humalog R SSI if BSGs>200 ASSESSMENT: * 59 year old now s/p cardiac catheterization. Pharmacy consulted for glycemic management. Patient confirms outpatient DM regimen. She reports she was diagnosed as a type 1.5 diabetic as she had early onset diabetes dx at age 21. She had been on insulin in the past, but now is managed only with agents above. She hasn't been on long acting insulin in a few years. She reports her blood sugars are generally <200 and has a continuous glucose monitor she uses at home. She reports feeling shaky if her blood sugars get too low so uses 200 mg/dL as a threshold for when she gives herself short acting insulin. * Postop BSG 90 mg/dL - reasonable to utilize SSI for now with CF only. Could consider adding CR if trending upward. No indication for basal insulin at this time. PLAN FOR INPATIENT GLYCEMIC CONTROL: * Hold outpatient oral diabetes medications * Basal insulin * Lantus - hold * Bolus insulin * NovoLog per scale ACHS or Q6hrs while NPO * Goal Range: Low 110 mg/dL - High 160 mg/dL * Correction Factor: 30 mg/dL/unit * Nutritional / Prandial insulin per carb ratio of 1 unit per -- grams CHO consumed
[2025-05-31] MEDS: METOPROLOL TARTRATE 50 MG TAB PO STA (15:43)
[2025-05-31] MEDS: CARBOHYDRATES FOR HYPOGLYCEMIA PO PRN (17:20)
[2025-05-31] MEDS: METOPROLOL TARTRATE 50 MG TAB PO SCH (21:49)
[2025-06-01] MEDS: LEVOTHYROXINE SODIUM 137 MCG TABLET PO SCH (05:51)
[2025-06-01] MEDS: ISOSORBIDE MONO EXTENDED REL 60 MG TABCR PO SCH (07:55)
[2025-06-01] MEDS: NIFEdipine EXTENDED REL 30 MG TABCR PO SCH (07:55)
[2025-06-01] MEDS: ASPIRIN 81 MG ECTAB PO SCH (07:56)
[2025-06-01] MEDS: CLOPIDOGREL BISULFATE 75 MG TAB PO SCH (07:56)
[2025-06-01 08:14] VITALS: RESP 16
--- NOTE | 2025-06-01 11:27 | Discharge Summary ---
Date of Service June 01, 2025 Admission HPI Per Admitting Provider Mrs. Freeman is a very pleasant 59-year-old woman with a history of multivessel CAD, hypertension, dyslipidemia, type 1.5 diabetes who presented for cardiac catheterization in the setting of recurrent chest pain concerning for recurrent angina. 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 Villasenor/Rochelle Roberts. She has had numerous stents placed to her RCA, LAD in the past, previously at [facility]. Discharge Data Procedures Performed Operation Date: 05/31/25 08:00 Actual Procedures p Cineradiography w/Routine Exam - Tomas Christian MD p Cath, Left with Cors and Vent - Tomas Christian MD s Drug Eluting Stent SGl Vessel - MD roberta Durand Coronary Lithotripsy - Tomas Christian MD Hospital Course (1) CAD (coronary artery disease): Plan Patient underwent cardiac catheterization via right radial artery on 05/31/2025. Findings: 1. Multivessel coronary artery disease -Patent proximal RCA to right PDA stents with 80-90% mid RCA in-stent restenosis Heavily calcified 80% proximal circumflex, 90% mid to distal circumflex. Late distal circumflex and proximal left PLB with 40-50% stenosis Widely patent proximal and distal LAD stents. 40% mid LAD. 90% ostial small D1 2. Normal intracardiac filling pressure 3. Successful PCI of proximal and mid to distal circumflex with 2 nonoverlapping drug-eluting stents (2.5 x 15 [place] postdilated with 3.0 NC, 2.5 x 18 mm [place]). 4. Successful PCI of mid RCA in-stent restenosis with intravascular lithotripsy new overlapping drug-eluting stent (3.0 x 15 mm [place]). Post procedure she was admitted for post PCI observation. Hospital course unremarkable. Remained electrically stable on telemetry. On postprocedure day 1 was feeling well with no chest pain and no apparent access site complications. Discharged home on DAPT with aspirin, clopidogrel. No other changes made to current medications. She will follow-up with Rochelle Roberts Discharge Instructions Home Medications alprazolam 1 mg tablet (Xanax) 1 mg PO TID 03/10/23 [History Confirmed 05/31/25] aspirin 81 mg tablet,delayed release (Adult Low Dose Aspirin) 81 mg PO DAILY 03/10/23 [History Confirmed 05/31/25] famotidine 20 mg tablet (Pepcid) 20 mg PO DAILY PRN Acid Reflux 03/10/23 [History Confirmed 05/31/25] isosorbide mononitrate 120 mg tablet,extended release 24 hr 120 mg PO DAILY 03/10/23 [History Confirmed 05/31/25] levothyroxine 137 mcg capsule 137 mcg PO DAILY 03/10/23 [History Confirmed 05/31/25] nifedipine 90 mg tablet,extended release 24 hr (Procardia XL) 90 mg PO DAILY 03/10/23 [History Confirmed 05/31/25] oxycodone 20 mg tablet 20 mg PO Q6H PRN Pain 03/10/23 [History Confirmed 05/31/25] promethazine 25 mg tablet 25 mg PO Q6H PRN Nausea And Vomiting 03/10/23 [History Confirmed 05/31/25] insulin lispro 200 unit/mL (3 mL) subcutaneous pen (Humalog KwikPen U-200 Insulin) sliding scale dose subcut 05/31/25 [History] metoprolol tartrate 50 mg tablet (Lopressor) 50 mg PO BID 05/31/25 [History Confirmed 05/31/25] tirzepatide 10 mg/0.5 mL subcutaneous pen injector (Mounjaro) 10 mg subcut WK 05/31/25 [History Confirmed 05/31/25] clopidogrel 75 mg tablet 75 mg PO DAILY #90 tabs 06/01/25 [Rx] Coding Level of Care Code 14152 IN/OBS DISCH 30 MIN/LESS Diagnoses CAD (coronary artery disease) I25.10
[2025-06-01 11:49] VITALS: BP 135/77; PULSE 84; TEMP 98.4; O2SAT 95
--- NOTE | 2025-06-01 20:16 | Electrocardiogram Report ---
Test Reason : Blood Pressure : */* mmHG Vent. Rate : 74 BPM Atrial Rate : 74 BPM P-R Int : 196 ms QRS Dur : 132 ms QT Int : 462 ms P-R-T Axes : 71 91 29 degrees QTcB Int : 512 ms Normal sinus rhythm Right bundle branch block Abnormal ECG When compared with ECG of 26-Aug-2017 19:20, Right bundle branch block is now Present Confirmed by Moe Cullen ([id number]) on 06/01/2025 8:15:55 PM Referred By: Rochelle Roberts Confirmed By: Moe Cullen
== END 2025-06-01 13:20 | disposition home or self-care (01) ==
LOC: 2S 06:45 → CC 06:45

== ENCOUNTER 2025-06-26 17:19 | Inpatient (IN) ==
--- NOTE | 2025-06-26 17:39 | Emergency Department Note ---
Impression & Plan Hypertensive emergency, CAD (coronary artery disease), Acute electrocardiogram changes ED Provider Note NAME: JIMMY DEL RIO AGE: 59 SEX: F : 1965 ARRIVES VIA: Walk-In INFORMANT: Patient, ED PROVIDER(S): Hay Eldridge MD CHIEF COMPLAINT: Chest pain MEDICAL DECISION MAKING: Patient presents due to concern for chest pain. Patient was noted to be significantly hypertensive. IV was established and blood work was obtained along with an EKG and troponin. Chest x-ray also obtained. EKG with changes. Patient with known history of CAD with multiple stents. Patient noted to be significantly hypertensive so the patient was ordered 1 sublingual nitro 0.4 mg as well as IV labetalol 10 mg. Patient's blood work shows a normal white count mild anemia hemoglobin 11.6 with a normal platelet count. Patient's kidney function is unremarkable. Initial troponin negative. After further discussion the patient did believe she would benefit from admission given her known CAD chest pain symptoms use of nitro as well as significant hypertension and EKG changes. Of note the patient did have improvement in her chest pain. Patient's blood pressure also did improve from 220 systolic to 140 systolic. I did speak with the on-call hospitalist who requested that the patient's case be discussed with the on-call interventionalist Dr. Christian. I did discuss this with him and he is in agreement with plan of care. Patient will be started on heparin and was given the rest of her full dose aspirin as she is already taking baby aspirin today. Patient admitted by Dr. Feldman. Critical Care: I have personally spent 48 minutes of critical care time in direct management of this patient. This includes bedside care, interpretation of diagnostic studies, and testing, discussion with consultants, patient, and family members, and other require inpatient management activities. This 48 minutes is in excess of all separately billable procedures. Discussion w/ other healthcare providers: Dr. Feldman inpatient medicine service Dr. Christian interventionalist Prior /Outside records reviewed: Reviewed part of a discharge summary from Dr. Christian from June 01. Known history of multivessel CAD hypertension dyslipidemia diabetes who presented due to concern for angina related symptoms has had prior stents placed to the RCA and LAD. Patient did have PCI proximal and mid to distal circumflex in as well as mid RCA in-stent restenosis with intravascular lithotripsy with new overlapping drug-eluting stent. Differential diagnosis: Cardiac ischemia, aortic dissection, pulmonary embolism, pneumothorax, pneumonia, pericarditis, myocarditis, GERD, cholecystitis, pancreatitis, musculoskeletal, as well as other pathologies were considered. Diagnostics, as interpreted by me: ECG: Normal sinus rhythm, rate of 83 wide QRS right bundle branch block pattern, slight depressions inferiorly with T wave inversions anteriorly as well as laterally. T wave versions are new from comparison EKG from May 31, 2025. Cardiac monitoring: An order was placed for continuous cardiac monitoring. The monitor shows a rate of 85 with sinus rhythm. Patient was placed on pulse oximetry Medical decision rules: Heart score Imaging studies: I informally interpreted the patient's chest x-ray does not show obvious pneumonia or pneumothorax with formal report to follow. HPI: 59 yo female with PMH of HTN, dyslipidemia, Type 1 DM, and CAD with multiple stent placement most recent 3 weeks ago who presents for chest tightness/pressure that has been progressing over the last week. Pt states since stent placement in late May, she has had intermittent chest tightness that was relieved with rest. Starting 2 days ago, she had an episode of chest tightness at rest that was accompanied with diaphoresis. She took nitro, which resolved the symptoms after 5 minutes. Last night, she had another episode of chest tightness/diaphoresis which took 2 doses of nitro to resolve. She was able to sleep, but noted return of symptoms this morning. Pt states the chest tightness feels like pressure on the left side that radiates to her neck and left shoulder. She denies SOB, but says she has difficulty taking a deep breath without coughing. Pt also notes nausea and feeling of heart burn over the last 3 days. Pt denies recent vomiting and does not feel dizzy. Pt denies abdominal pain, recent illness, headaches, or changes in her vision. Pt presents with elevated BP today at 220/110, pt states he BP this morning was 160/90- with her normal BP at 140/80. Pt states that she is compliant with her medications, although she did not take her weekly dose of Mounjaro due to low blood glucose. Patient denies any increase in salt or processed foods. She denies alcohol tobacco or drug use. PAST MEDICAL HISTORY: See Below PAST SURGICAL HISTORY: See Below SOCIAL HISTORY: See Below HOME MEDICATIONS: See Below ALLERGIES: See Below VITALS: See Below PHYSICAL EXAMINATION: GENERAL: NAD, non-toxic. Wearing glasses EYE EXAM: Normal conjunctiva. PERRL, no anisocoria and EOM's grossly intact w/o pain. OROPHARYNX: Moist mucus membranes, grossly normal dentition. NECK: Trachea midline, no stridor. LUNGS: Clear to auscultation. Normal chest wall mechanics. HEART: NSR, no MRG. ABDOMEN: Abdomen soft, non-tender, no masses, no rebound or guarding. BACK: No CVA TTP. SKIN: No rashes and no bruising. UPPER EXTREMITIES: Upper extremities are grossly normal. LOWER EXTREMITIES: Bilateral AKA's noted. NEURO EXAM: Awake and alert, follows commands, no obvious facial asymmetry, normal speech, moves all 4 extremities. Past Med/Surg History Problem List (Updated 06/26/25 @ 23:50 by Hay Eldridge MD) Acute electrocardiogram changes (Acute) CAD (coronary artery disease) (Acute) Hypertensive emergency (Acute) Anemia Vitamin D deficiency Stage 3b chronic kidney disease Wound, open, foot (Acute) Diabetes (Chronic) HTN (hypertension) (Chronic) Hx of BKA (Chronic) BKA stump complication CAD (coronary artery disease) Cellulitis (Acute) Cellulitis, gluteal, left (Acute) Cellulitis, gluteal, right (Acute) Diabetes mellitus type 1 Diabetic foot infection (Acute) Diabetic foot infection (Acute) Exostosis Hematoma (Acute) Hyperglycemia (Acute) Hypomagnesemia (Acute) Left wrist pain (Acute) Osteomyelitis Painful amputation stump Peripheral vascular complications Post op infection Sepsis (Acute) UTI (urinary tract infection) (Acute) Wound dehiscence, surgical Social History Smoking Status: Never smoker Hx Alcohol Use: No Hx Substance Use: No Preferred Language: [place] Communication Ability: Effective Hand Packer Required: No Beliefs That Will Affect Care: Confucianist Confucianist Beliefs: Maegan Current Living Situation: Spouse Other Information That Helps Us Care for You: No Feels Safe at Home: Yes Safety Concerns: Feels Safe At This Time Assistive Devices: Denture - Upper, Denture - Lower and Glasses Allergies Allergies Allergy/AdvReac Type Severity Reaction Status Date / Time butorphanol Allergy Severe SHORTNESS Verified 05/31/25 07:14 OF BREATH ropivacaine Allergy Severe Anaphylaxis Verified 05/31/25 07:14 pravastatin Allergy Mild Itching Verified 05/31/25 07:14 spironolactone Allergy Mild RASH Verified 05/31/25 07:14 atorvastatin Allergy Unknown RASH Verified 05/31/25 07:14 fenofibrate Allergy Unknown RASH Verified 05/31/25 07:14 hydralazine AdvReac Mild Itching Verified 05/31/25 07:14 vancomycin AdvReac Mild RASH-DEVYN Verified 05/31/25 07:14 SYNDROME Home Meds Home Medications Medication Instructions Recorded Confirmed alprazolam 1 mg tablet (Xanax) 1 mg PO TID 03/10/23 06/26/25 aspirin 81 mg tablet,delayed 81 mg PO DAILY 03/10/23 06/26/25 release (Adult Low Dose Aspirin) famotidine 20 mg tablet (Pepcid) 20 mg PO DAILY PRN Acid Reflux 03/10/23 06/26/25 isosorbide mononitrate 120 mg 120 mg PO DAILY 03/10/23 06/26/25 tablet,extended release 24 hr levothyroxine 137 mcg capsule 137 mcg PO DAILY 03/10/23 06/26/25 nifedipine 90 mg tablet,extended 60 mg PO DAILY 03/10/23 06/26/25 release 24 hr (Procardia XL) oxycodone 20 mg tablet 10 mg PO Q6H PRN Pain 03/10/23 06/26/25 promethazine 25 mg tablet 25 mg PO Q6H PRN Nausea And 03/10/23 06/26/25 Vomiting insulin lispro 200 unit/mL (3 mL) See Rx Instructions .Route .COMPLEX 05/31/25 06/26/25 subcutaneous pen (Humalog KwikPen U-200 Insulin) metoprolol tartrate 50 mg tablet 50 mg PO BID 05/31/25 06/26/25 (Lopressor) tirzepatide 10 mg/0.5 mL 10 mg subcut WK 05/31/25 06/26/25 subcutaneous pen injector (Mounjaro) nifedipine 30 mg tablet,extended 30 mg PO HS 06/26/25 06/26/25 release 24 hr Previous Rx's Medication Instructions Recorded clopidogrel 75 mg tablet 75 mg PO DAILY #90 tabs 06/01/25 Results & Data (ED) Vital Signs Vital Signs - 24 hr 06/26/25 17:21 06/26/25 17:21 06/26/25 17:33 Temperature 36.2 C L Temperature Source Temporal Artery Scan Pulse Rate 87 Pulse Rate [Apical] Pulse Rate from SpO2 Sensor Respiratory Rate 20 Respiratory Effort / Characteristics SOB on Exertion Respiratory Depth Respiratory Pattern Blood Pressure 226/104 H Blood Pressure [Left Arm] Blood Pressure Mean 144 Blood Pressure Mean [Left Arm] Blood Pressure Position [Left Arm] Pulse Oximetry 98 99 Oxygen Delivery Method Room Air Room Air Sepsis Recent Fever Within 48 Hours No Sepsis New/Unexplained Change in Mental Status N/A Sepsis Action Taken by Nursing No Action Required 06/26/25 17:33 06/26/25 17:33 06/26/25 17:42 Temperature Temperature Source Pulse Rate 86 Pulse Rate [Apical] 83 Pulse Rate from SpO2 Sensor 86 Respiratory Rate 18 20 Respiratory Effort / Characteristics Non-Labored Spontaneous Respiratory Depth Normal Respiratory Pattern Regular Blood Pressure Blood Pressure [Left Arm] 229/123 H Blood Pressure Mean Blood Pressure Mean [Left Arm] 158 Blood Pressure Position [Left Arm] Semi-fowlers Pulse Oximetry 98 98 99 Oxygen Delivery Method Room Air Room Air Sepsis Recent Fever Within 48 Hours Sepsis New/Unexplained Change in Mental Status Sepsis Action Taken by Nursing 06/26/25 17:48 06/26/25 17:54 06/26/25 18:00 Temperature Temperature Source Pulse Rate 84 82 Pulse Rate [Apical] 81 Pulse Rate from SpO2 Sensor 82 Respiratory Rate 15 16 Respiratory Effort / Characteristics Non-Labored Spontaneous Respiratory Depth Normal Respiratory Pattern Regular Blood Pressure Blood Pressure [Left Arm] 210/106 H Blood Pressure Mean Blood Pressure Mean [Left Arm] 140 Blood Pressure Position [Left Arm] Semi-fowlers Pulse Oximetry 98 100 Oxygen Delivery Method Room Air Sepsis Recent Fever Within 48 Hours Sepsis New/Unexplained Change in Mental Status Sepsis Action Taken by Nursing 06/26/25 18:00 06/26/25 18:00 06/26/25 18:00 Temperature Temperature Source Pulse Rate Pulse Rate [Apical] Pulse Rate from SpO2 Sensor Respiratory Rate Respiratory Effort / Characteristics Respiratory Depth Respiratory Pattern Blood Pressure 210/106 H 210/106 H 210/106 H Blood Pressure [Left Arm] Blood Pressure Mean 157 157 157 Blood Pressure Mean [Left Arm] Blood Pressure Position [Left Arm] Pulse Oximetry Oxygen Delivery Method Sepsis Recent Fever Within 48 Hours Sepsis New/Unexplained Change in Mental Status Sepsis Action Taken by Nursing 06/26/25 18:10 06/26/25 18:24 06/26/25 18:30 Temperature Temperature Source Pulse Rate 79 79 Pulse Rate [Apical] Pulse Rate from SpO2 Sensor Respiratory Rate 21 Respiratory Effort / Characteristics Respiratory Depth Respiratory Pattern Blood Pressure 210/106 H 164/96 H Blood Pressure [Left Arm] Blood Pressure Mean 109 Blood Pressure Mean [Left Arm] Blood Pressure Position [Left Arm] Pulse Oximetry Oxygen Delivery Method Sepsis Recent Fever Within 48 Hours Sepsis New/Unexplained Change in Mental Status Sepsis Action Taken by Nursing 06/26/25 18:30 06/26/25 18:30 06/26/25 18:30 Temperature Temperature Source Pulse Rate Pulse Rate [Apical] Pulse Rate from SpO2 Sensor Respiratory Rate Respiratory Effort / Characteristics Respiratory Depth Respiratory Pattern Blood Pressure 164/96 H 164/96 H 164/96 H Blood Pressure [Left Arm] Blood Pressure Mean 109 109 109 Blood Pressure Mean [Left Arm] Blood Pressure Position [Left Arm] Pulse Oximetry Oxygen Delivery Method Sepsis Recent Fever Within 48 Hours Sepsis New/Unexplained Change in Mental Status Sepsis Action Taken by Nursing 06/26/25 18:30 06/26/25 18:30 06/26/25 18:30 Temperature Temperature Source Pulse Rate 79 78 Pulse Rate [Apical] Pulse Rate from SpO2 Sensor Respiratory Rate 18 Respiratory Effort / Characteristics Respiratory Depth Respiratory Pattern Blood Pressure 164/96 H 164/96 H Blood Pressure [Left Arm] Blood Pressure Mean 109 Blood Pressure Mean [Left Arm] Blood Pressure Position [Left Arm] Pulse Oximetry Oxygen Delivery Method Sepsis Recent Fever Within 48 Hours Sepsis New/Unexplained Change in Mental Status Sepsis Action Taken by Nursing 06/26/25 19:00 06/26/25 19:27 06/26/25 19:30 Temperature Temperature Source Pulse Rate 78 77 Pulse Rate [Apical] Pulse Rate from SpO2 Sensor 78 Respiratory Rate 15 21 Respiratory Effort / Characteristics Respiratory Depth Respiratory Pattern Blood Pressure 145/75 H 159/78 H Blood Pressure [Left Arm] Blood Pressure Mean 108 110 Blood Pressure Mean [Left Arm] Blood Pressure Position [Left Arm] Pulse Oximetry 97 95 Oxygen Delivery Method Room Air Sepsis Recent Fever Within 48 Hours Sepsis New/Unexplained Change in Mental Status Sepsis Action Taken by Nursing 06/26/25 19:33 06/26/25 19:45 06/26/25 19:48 Temperature Temperature Source Pulse Rate 77 78 Pulse Rate [Apical] Pulse Rate from SpO2 Sensor 77 78 Respiratory Rate 18 23 Respiratory Effort / Characteristics Respiratory Depth Respiratory Pattern Blood Pressure 140/69 Blood Pressure [Left Arm] Blood Pressure Mean 101 Blood Pressure Mean [Left Arm] Blood Pressure Position [Left Arm] Pulse Oximetry 96 97 Oxygen Delivery Method Sepsis Recent Fever Within 48 Hours Sepsis New/Unexplained Change in Mental Status Sepsis Action Taken by Nursing 06/26/25 19:51 06/26/25 20:09 06/26/25 20:12 Temperature Temperature Source Pulse Rate 77 82 82 Pulse Rate [Apical] Pulse Rate from SpO2 Sensor 77 82 82 Respiratory Rate 23 26 H 16 Respiratory Effort / Characteristics Respiratory Depth Respiratory Pattern Blood Pressure Blood Pressure [Left Arm] Blood Pressure Mean Blood Pressure Mean [Left Arm] Blood Pressure Position [Left Arm] Pulse Oximetry 98 98 100 Oxygen Delivery Method Sepsis Recent Fever Within 48 Hours Sepsis New/Unexplained Change in Mental Status Sepsis Action Taken by Nursing 06/26/25 20:13 06/26/25 20:15 06/26/25 20:15 Temperature Temperature Source Pulse Rate 82 Pulse Rate [Apical] Pulse Rate from SpO2 Sensor 81 Respiratory Rate 20 Respiratory Effort / Characteristics Respiratory Depth Respiratory Pattern Blood Pressure 168/112 H 148/85 H Blood Pressure [Left Arm] Blood Pressure Mean 135 107 Blood Pressure Mean [Left Arm] Blood Pressure Position [Left Arm] Pulse Oximetry 98 Oxygen Delivery Method Sepsis Recent Fever Within 48 Hours Sepsis New/Unexplained Change in Mental Status Sepsis Action Taken by Nursing 06/26/25 20:21 06/26/25 20:27 06/26/25 20:32 Temperature Temperature Source Pulse Rate 82 80 Pulse Rate [Apical] Pulse Rate from SpO2 Sensor 80 81 Respiratory Rate 21 12 Respiratory Effort / Characteristics Respiratory Depth Respiratory Pattern Blood Pressure 189/93 H Blood Pressure [Left Arm] Blood Pressure Mean 117 Blood Pressure Mean [Left Arm] Blood Pressure Position [Left Arm] Pulse Oximetry 98 99 Oxygen Delivery Method Sepsis Recent Fever Within 48 Hours Sepsis New/Unexplained Change in Mental Status Sepsis Action Taken by Nursing 06/26/25 20:33 Temperature Temperature Source Pulse Rate 82 Pulse Rate [Apical] Pulse Rate from SpO2 Sensor 82 Respiratory Rate 16 Respiratory Effort / Characteristics Respiratory Depth Respiratory Pattern Blood Pressure Blood Pressure [Left Arm] Blood Pressure Mean Blood Pressure Mean [Left Arm] Blood Pressure Position [Left Arm] Pulse Oximetry 98 Oxygen Delivery Method Sepsis Recent Fever Within 48 Hours Sepsis New/Unexplained Change in Mental Status Sepsis Action Taken by [facility] Medications Current Medication List: was personally reviewed by me Laboratory Data Attestation: I reviewed the patient's lab results. 06/26/25 17:41 06/26/25 17:41 Lab Results 06/26/25 Range/Units 17:41 WBC 5.91 (4.8-10.8) K/ul RBC 3.94 L (4.20-5.40) M/uL Hgb 11.6 L (12.0-16.0) g/dl Hct 34.9 L (37.0-47.0) % MCV 88.6 (80.0-100.0) fL MCH 29.4 (25.0-34.0) pg MCHC 33.2 (32.0-36.0) g/dL RDW Std Deviation 45.4 (36.4-46.3) fL RDW Coeff of Isaiah 14.0 (11.5-14.5) % Plt Count 208 (130-400) K/uL MPV 9.1 L (9.4-12.4) fL Immature Gran % (Auto) 0.2 % Neut % (Auto) 60.7 % Lymph % (Auto) 29.6 % [place] % (Auto) 7.1 % Eos % (Auto) 1.9 % Baso % (Auto) 0.5 % Neut # (Auto) 3.59 (1.40-6.50) K/uL Lymph # (Auto) 1.75 (1.20-3.40) K/uL [place] # (Auto) 0.42 (0.11-0.59) K/uL Eos # (Auto) 0.11 (0.00-0.50) K/uL Baso # (Auto) 0.03 (0.00-0.20) K/uL Immature Gran # (Auto) 0.01 (0.01-0.20) K/uL PT 10.7 (9.0-12.0) Seconds INR 1.0 (0.9-1.1) APTT 27 (21-31) Seconds PTT Ratio 1.0 Sodium 138 (136-145) mmol/L Potassium 3.5 (3.5-5.1) mmol/L Chloride 103 (98-107) mmol/L Carbon Dioxide 25 (21-32) mmol/L Anion Gap 10 (3-11) BUN 13 (6-23) mg/dl Creatinine 0.78 (0.6-1.2) mg/dl Est Cr Clr Drug Dosing 78.6 ml/min eGFR 88.53 BUN/Creatinine Ratio 16.7 (10-20) Glucose 142 H (70-99(Fasting)) mg/dl Calcium 9.8 (8.6-10.3) mg/dl Total Bilirubin 0.5 (0.2-1.0) mg/dl AST 15 (13-39) U/L ALT 9 (7-52) U/L Alkaline Phosphatase 84 (34-104) U/L Troponin I High Sens 12.2 (0-14) pg/ml Total Protein 7.8 (6.0-8.3) gm/dl Albumin 4.3 (3.4-5.0) gm/dl Globulin 3.5 (2.5-4.0) gm/dl Albumin/Globulin Ratio 1.2 (0.9-2) Administered Medications Alprazolam (Alprazolam 0.5 Mg Tablet) 1 mg PO HS PRN PRN Reason: insomnia / anxiety Stop: 07/26/25 22:51 Last Admin: 06/26/25 23:38 Dose: 1 mg Documented By: AYE Heparin Sodium/Dextrose (Heparin 23582 Unit/500 Ml D5w) 25,000 units in 500 mls @ 15 mls/hr IV .Q24H SASHA; Protocol Stop: 07/26/25 20:59 Last Admin: 06/26/25 21:16 Dose: 750 units/hr, 15 mls/hr Documented By: CHRISTINA Co-signed By: STEPHANIE Insulin Aspart (Insulin Aspart Per Unit Charge) 0 units SC ACHS SASHA Stop: 07/26/25 21:48 Last Admin: 06/26/25 22:54 Dose: Not Given Documented By: AYE Oxycodone HCl (Oxycodone Hcl Ir 5 Mg Tab (Immediate Release)) 10 mg PO Q6H PRN PRN Reason: Pain Stop: 07/10/25 22:53 Last Admin: 06/26/25 23:37 Dose: 10 mg Documented By: AYE Discontinued Medications Aspirin (Aspirin Chew 324 Mg) 243 mg PO NOW STA Stop: 06/26/25 20:33 Last Admin: 06/26/25 21:13 Dose: 243 mg Documented By: CHRISTINA Heparin Sodium (Porcine) (Heparin Sod (Porcine) 1000 Unit/Ml) 1 units IV NOW ONE Stop: 06/26/25 20:48 Last Admin: 06/26/25 21:14 Dose: 4,000 units Documented By: CHRISTINA Co-signed By: STEPHANIE Heparin Sodium/Dextrose (Heparin Iv Adult Wt-Based Low-Dose W/ Initial Bolus Protocol) 1 each IV NOW STA; Protocol Stop: 06/26/25 20:33 Last Admin: 06/26/25 22:54 Dose: Not Given Documented By: AYE Labetalol HCl (Labetalol Hcl Iv 5 Mg/Ml 20ml) 10 mg IV NOW STA Stop: 06/26/25 17:59 Last Admin: 06/26/25 18:10 Dose: 10 mg Documented By: AREN Metoprolol Tartrate (Metoprolol Tartrate 50 Mg Tab) 50 mg PO NOW STA Stop: 06/26/25 20:16 Last Admin: 06/26/25 20:20 Dose: 50 mg Documented By: CHRISTINA Nitroglycerin (Nitroglycerin 2% Ointment 30gm Tube) 1 inch EXT NOW ONE Stop: 06/26/25 17:59 Last Admin: 06/26/25 18:09 Dose: 1 inch Documented By: AREN Imaging Data Radiologist's Impression: Chest X-Ray 06/26/25 17:26 Clinical History: Chest pain Technique: A frontal view of the chest was obtained Findings: There are no confluent pulmonary infiltrates. The heart size is within normal limits. No pleural effusion or pneumothorax is seen. There is no definite pulmonary nodule. No fracture is noted. No foreign body is seen Impression: No active disease Electronically signed by Boris Alicia 06-26-2025 6:38 PM Discharge Plan Visit Data Chief Complaint: Chest Pain Stated Complaint: CHEST PAIN ED Provider: Hay Eldridge ED Midlevel Provider: Janet Urena Discharge Problem: Hypertensive emergency, CAD (coronary artery disease), Acute electrocardiogram changes Patient Disposition: Admitted As Inpatient Condition: Good Discharge Instructions Interventions: ED Discharge Assessment Last Done: 06/26/25 21:34 Discharge Problem: CAD (coronary artery disease) Qualifiers: Coronary Disease-Associated Artery/Lesion type: [place] artery [place] vs. transplanted heart: [place] heart Associated angina: unspecified whether angina present Qualified Code(s): I25.10 - Atherosclerotic heart disease of [place] coronary artery without angina pectoris
[2025-06-26 17:57] LABS: Hematocrit (blood only) 34.9 % (37.0-47.0); Hemoglobin 11.6 g/dl (12.0-16.0); Immature Granulocytes # (auto) 0.01 K/uL (0.01-0.20); Immature Granulocytes % (auto) 0.2 %; Mean Corpuscular Hemoglobin 29.4 pg (25.0-34.0); Mean Corpuscular Volume 88.6 fL (80.0-100.0); Platelet Count 208 K/uL (130-400); RDW Standard Deviation 45.4 fL (36.4-46.3); Red Blood Count 3.94 M/uL (4.20-5.40); White Blood Count 5.91 K/ul (4.8-10.8)
[2025-06-26] MEDS: NITROGLYCERIN 2% OINTMENT 30GM TUBE EXT ONE (18:09)
[2025-06-26] MEDS: LABETALOL HCL IV 5 MG/ML 20ML IV STA (18:10)
[2025-06-26 18:15] LABS: Anion Gap 10.0 (3-11); Blood Urea Nitrogen 13.0 mg/dl (6-23); Carbon Dioxide 25.0 mmol/L (21-32); Chloride 103.0 mmol/L (98-107); Potassium 3.5 mmol/L (3.5-5.1); Sodium 138.0 mmol/L (136-145)
[2025-06-26 18:16] LABS: Alanine Aminotransferase 9.0 U/L (7-52); Albumin Globulin Ratio 1.2 (0.9-2); Alkaline Phosphatase 84.0 U/L (34-104); Bilirubin,Total 0.5 mg/dl (0.2-1.0); Calcium 9.8 mg/dl (8.6-10.3); Creatinine Clr Calc Pharmacy 78.6 ml/min; Globulin 3.5 gm/dl (2.5-4.0); Glucose 142.0 mg/dl (70-99(Fasting)); Total Protein 7.8 gm/dl (6.0-8.3)
[2025-06-26 18:27] LABS: INR 1.0 (0.9-1.1); Partial Thromboplastin Time 27 Seconds (21-31); Prothrombin Time 10.7 Seconds (9.0-12.0)
--- NOTE | 2025-06-26 18:38 | XRay Report ---
Clinical History: Chest pain Technique: A frontal view of the chest was obtained Findings: There are no confluent pulmonary infiltrates. The heart size is within normal limits. No pleural effusion or pneumothorax is seen. There is no definite pulmonary nodule. No fracture is noted. No foreign body is seen Impression: No active disease Electronically signed by Boris Alicia 06-26-2025 6:38 PM
[2025-06-26] MEDS: METOPROLOL TARTRATE 50 MG TAB PO STA (20:20)
--- NOTE | 2025-06-26 20:38 | History & Physical Report ---
Date of Service June 26, 2025 Assessment & Plan (1) Acute electrocardiogram changes: (2) S/P coronary artery stent placement: (3) CAD (coronary artery disease): (4) HTN (hypertension): Plan The patient is a 59-year-old female with a past medical history including CAD, CKD stage IIIb, diabetes mellitus, hypertension, pulmonary embolism, history of bilateral BKA, urinary tract infection. She underwent a cardiac catheterization on 05/31/2025, had 3 stents placed, and was discharged to home. She reports that over the past week she has had intermittent issues with chest pain, spasms, and dyspnea on exertion. She thought that the symptoms would go away, however, due to persistence of symptoms and worsening over the past 24 hours, she presented to the ED for assessment. Chest pain/dyspnea exertion/CAD/hypertension/recent stent placement/hypertension- The patient will be admitted to telemetry for serial cardiac enzymes, serial EKG's, cardiac rhythm monitoring Troponin 12.2, with follow-up pending EKG with normal sinus rhythm 83, right bundle branch block, and T wave inversion in anterior chest leads of which is new Continue heparin drip begun in the ED Continue aspirin, clopidogrel, isosorbide mononitrate, metoprolol tartrate, and nifedipine. Consult cardiology Dr. Christian Diabetes mellitus- Glucose 142 on admission Uses insulin coverage at home Placed on Accu-Cheks with NovoLog SSI Check hemoglobin A1c Hypothyroidism- Continue levothyroxine Weight management- On Davidro in outpatient setting weekly Pain management- Continue acetaminophen 650 mg by mouth every 6 hours as needed for mild pain or fever Oxycodone 10 mg p.o. 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 She underwent a cardiac catheterization on 05/31/2025 that required a total of 3 DANE. She had been doing well until as noted a week or so ago when she started developing the chest spasm and pain symptoms. She has had some intermittent shortness of breath associated. In particular she has symptoms when she is getting in a wheelchair and transferring. Primary Care Provider: Kita Arrieta The patient is a 59-year-old female with a past medical history including CAD, CKD stage IIIb, diabetes mellitus, hypertension, pulmonary embolism, history of bilateral BKA, urinary tract infection. She underwent a cardiac catheterization on 05/31/2025, had 3 stents placed, and was discharged to home. She reports that over the past week she has had intermittent issues with chest pain, spasms, and dyspnea on exertion. She thought that the symptoms would go away, however, due to persistence of symptoms and worsening over the past 24 hours, she presented to the ED for assessment. Allergies Allergy/AdvReac Type Severity Reaction Status Date / Time butorphanol Allergy Severe SHORTNESS Verified 05/31/25 07:14 OF BREATH ropivacaine Allergy Severe Anaphylaxis Verified 05/31/25 07:14 pravastatin Allergy Mild Itching Verified 05/31/25 07:14 spironolactone Allergy Mild RASH Verified 05/31/25 07:14 atorvastatin Allergy Unknown RASH Verified 05/31/25 07:14 fenofibrate Allergy Unknown RASH Verified 05/31/25 07:14 hydralazine AdvReac Mild Itching Verified 05/31/25 07:14 vancomycin AdvReac Mild RASH-DEVYN Verified 05/31/25 07:14 SYNDROME Home Medications Medication Instructions Recorded Confirmed Type alprazolam 1 mg tablet (Xanax) 1 mg PO TID 03/10/23 06/26/25 History aspirin 81 mg tablet,delayed 81 mg PO DAILY 03/10/23 06/26/25 History release (Adult Low Dose Aspirin) famotidine 20 mg tablet (Pepcid) 20 mg PO DAILY PRN Acid Reflux 03/10/23 06/26/25 History isosorbide mononitrate 120 mg 120 mg PO DAILY 03/10/23 06/26/25 History tablet,extended release 24 hr levothyroxine 137 mcg capsule 137 mcg PO DAILY 03/10/23 06/26/25 History nifedipine 90 mg tablet,extended 60 mg PO DAILY 03/10/23 06/26/25 History release 24 hr (Procardia XL) oxycodone 20 mg tablet 10 mg PO Q6H PRN Pain 03/10/23 06/26/25 History promethazine 25 mg tablet 25 mg PO Q6H PRN Nausea And 03/10/23 06/26/25 History Vomiting insulin lispro 200 unit/mL (3 mL) See Rx Instructions .Route .COMPLEX 05/31/25 06/26/25 History subcutaneous pen (Humalog KwikPen U-200 Insulin) metoprolol tartrate 50 mg tablet 50 mg PO BID 05/31/25 06/26/25 History (Lopressor) tirzepatide 10 mg/0.5 mL 10 mg subcut WK 05/31/25 06/26/25 History subcutaneous pen injector (Mounjaro) clopidogrel 75 mg tablet 75 mg PO DAILY #90 tabs 06/01/25 06/26/25 Rx nifedipine 30 mg tablet,extended 30 mg PO HS 06/26/25 06/26/25 History release 24 hr Past Med/Surg History Problem List (Updated 06/26/25 @ 23:50 by Hay Eldridge MD) S/P coronary artery stent placement Acute electrocardiogram changes (Acute) CAD (coronary artery disease) (Acute) Hypertensive emergency (Acute) Anemia Vitamin D deficiency Stage 3b chronic kidney disease Wound, open, foot (Acute) Diabetes (Chronic) HTN (hypertension) (Chronic) Hx of BKA (Chronic) BKA stump complication CAD (coronary artery disease) Cellulitis (Acute) Cellulitis, gluteal, left (Acute) Cellulitis, gluteal, right (Acute) Diabetes mellitus type 1 Diabetic foot infection (Acute) Diabetic foot infection (Acute) Exostosis Hematoma (Acute) Hyperglycemia (Acute) Hypomagnesemia (Acute) Left wrist pain (Acute) Osteomyelitis Painful amputation stump Peripheral vascular complications Post op infection Sepsis (Acute) UTI (urinary tract infection) (Acute) Wound dehiscence, surgical Social History Smoking Status: Never smoker Hx Alcohol Use: No Hx Substance Use: No Preferred Language: Occitan Communication Ability: Effective 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: No Beliefs That Will Affect Care: Anglican Anglican Beliefs: Mandaen Current Living Situation: Spouse Other Information That Helps Us Care for You: No Feels Safe at Home: Yes Safety Concerns: Feels Safe At This Time Assistive Devices: Denture - Upper, Denture - Lower and Glasses Review of Systems Review of Systems: The patient denies palpitations, cough, sore throat, fevers, chills, sweats, nausea, vomiting, diarrhea , constipation, abdominal pain, pelvic pain, blood in urine or stool, dysuria, urinary frequency or urgency, lightheadedness, dizziness, headache, memory loss, loss of consciousness, rash, abnormal bruising or bleeding, imbalance, focal or generalized weakness, numbness or tingling in arms, generalized arthralgias or myalgias, back or neck pain, or night sweats. The review of systems is otherwise negative other than for that already noted above, and at least 10 systems have been reviewed. Physical Exam Physical Exam: The patient is awake, alert and oriented 3, well developed and well nourished, normocephalic and atraumatic, lying in bed and in no acute distress. HEENT--PERRL, EOMI, mucous membranes and oropharynx mildly dry. Neck--supple. No JVD. No bruits. Thyroid normal, trachea midline, no jeannie opathy. Heart--normal S1 and S2. No murmurs, rubs or gallops. Lungs--clear bilaterally, no respiratory distress, no accessory muscle use. Abdomen--normal bowel sounds and soft. Nontender. Nondistended, no hernias or masses, no organomegaly. Extremities-- No edema. Bilateral BKA Dermatologic--normal skin turgor, normal color, no abnormal lymph nodes, no rash. Neurologic--cranial nerves II through XII grossly intact. Rheumatologic--normal range of motion. Psychiatric--normal affect. Results & Data Results & Data Vital Signs (Past 12 Hours) Vital Signs Temp Pulse Pulse Resp BP BP Pulse Ox 06/26/25 19:00 78 15 145/75 H 97 06/26/25 18:30 78 164/96 H 06/26/25 18:30 79 18 06/26/25 18:30 164/96 H 06/26/25 18:30 164/96 H 06/26/25 18:30 164/96 H 06/26/25 18:30 164/96 H 06/26/25 18:30 164/96 H 06/26/25 18:24 79 21 06/26/25 18:10 79 210/106 H 06/26/25 18:00 210/106 H 06/26/25 18:00 210/106 H 06/26/25 18:00 210/106 H 06/26/25 18:00 81 16 210/106 H 100 06/26/25 17:54 82 15 98 06/26/25 17:48 84 06/26/25 17:42 86 20 99 06/26/25 17:33 98 06/26/25 17:33 83 18 229/123 H 98 06/26/25 17:33 99 06/26/25 17:21 36.2 C L 87 20 226/104 H 98 O2 Del Method 06/26/25 19:00 Room Air 06/26/25 18:30 06/26/25 18:30 06/26/25 18:30 06/26/25 18:30 06/26/25 18:30 06/26/25 18:30 06/26/25 18:30 06/26/25 18:24 06/26/25 18:10 06/26/25 18:00 06/26/25 18:00 06/26/25 18:00 06/26/25 18:00 Room Air 06/26/25 17:54 06/26/25 17:48 06/26/25 17:42 06/26/25 17:33 Room Air 06/26/25 17:33 Room Air 06/26/25 17:33 Room Air 06/26/25 17:21 Room Air Laboratory Results Laboratory Results WBC 5.91 K/ul (4.8-10.8) 06/26/25 17:41 RBC 3.94 M/uL (4.20-5.40) L 06/26/25 17:41 Hgb 11.6 g/dl (12.0-16.0) L 06/26/25 17:41 Hct 34.9 % (37.0-47.0) L 06/26/25 17:41 MCV 88.6 fL (80.0-100.0) 06/26/25 17:41 MCH 29.4 pg (25.0-34.0) 06/26/25 17:41 MCHC 33.2 g/dL (32.0-36.0) 06/26/25 17:41 RDW Std Deviation 45.4 fL (36.4-46.3) 06/26/25 17:41 RDW Coeff of Isaiah 14.0 % (11.5-14.5) 06/26/25 17:41 Plt Count 208 K/uL (130-400) 06/26/25 17:41 MPV 9.1 fL (9.4-12.4) L 06/26/25 17:41 Immature Gran % (Auto) 0.2 % 06/26/25 17:41 Neut % (Auto) 60.7 % 06/26/25 17:41 Lymph % (Auto) 29.6 % 06/26/25 17:41 Stevens % (Auto) 7.1 % 06/26/25 17:41 Eos % (Auto) 1.9 % 06/26/25 17:41 Baso % (Auto) 0.5 % 06/26/25 17:41 Neut # (Auto) 3.59 K/uL (1.40-6.50) 06/26/25 17:41 Lymph # (Auto) 1.75 K/uL (1.20-3.40) 06/26/25 17:41 Stevens # (Auto) 0.42 K/uL (0.11-0.59) 06/26/25 17:41 Eos # (Auto) 0.11 K/uL (0.00-0.50) 06/26/25 17:41 Baso # (Auto) 0.03 K/uL (0.00-0.20) 06/26/25 17:41 Immature Gran # (Auto) 0.01 K/uL (0.01-0.20) 06/26/25 17:41 PT 10.7 Seconds (9.0-12.0) 06/26/25 17:41 INR 1.0 (0.9-1.1) 06/26/25 17:41 APTT 27 Seconds (21-31) 06/26/25 17:41 PTT Ratio 1.0 06/26/25 17:41 Sodium 138 mmol/L (136-145) 06/26/25 17:41 Potassium 3.5 mmol/L (3.5-5.1) 06/26/25 17:41 Chloride 103 mmol/L (98-107) 06/26/25 17:41 Carbon Dioxide 25 mmol/L (21-32) 06/26/25 17:41 Anion Gap 10 (3-11) 06/26/25 17:41 BUN 13 mg/dl (6-23) 06/26/25 17:41 Creatinine 0.78 mg/dl (0.6-1.2) 06/26/25 17:41 Est Cr Clr Drug Dosing 78.6 ml/min 06/26/25 17:41 eGFR 88.53 06/26/25 17:41 BUN/Creatinine Ratio 16.7 (10-20) 06/26/25 17:41 Glucose 142 mg/dl (70-99(Fasting)) H 06/26/25 17:41 POC Glucose 137 mg/dl (70-99) H 06/26/25 21:51 Calcium 9.8 mg/dl (8.6-10.3) 06/26/25 17:41 Total Bilirubin 0.5 mg/dl (0.2-1.0) 06/26/25 17:41 AST 15 U/L (13-39) 06/26/25 17:41 ALT 9 U/L (7-52) 06/26/25 17:41 Alkaline Phosphatase 84 U/L (34-104) 06/26/25 17:41 Troponin I High Sens 12.2 pg/ml (0-14) 06/26/25 17:41 Total Protein 7.8 gm/dl (6.0-8.3) 06/26/25 17:41 Albumin 4.3 gm/dl (3.4-5.0) 06/26/25 17:41 Globulin 3.5 gm/dl (2.5-4.0) 06/26/25 17:41 Albumin/Globulin Ratio 1.2 (0.9-2) 06/26/25 17:41 Impressions Chest X-Ray 06/26/25 17:26 Clinical History: Chest pain Technique: A frontal view of the chest was obtained Findings: There are no confluent pulmonary infiltrates. The heart size is within normal limits. No pleural effusion or pneumothorax is seen. There is no definite pulmonary nodule. No fracture is noted. No foreign body is seen Impression: No active disease Electronically signed by Boris Alicia 06-26-2025 6:38 PM Code Status & VTE Plan Code Status Full code VTE Prophylaxis Plan VTE Prophylaxis will be ordered: Yes PG Care Time/CCT Total # of Minutes Spent Total Time Spent with Patient: Total time spent is greater than 50% in coordination of care (as documented) at patient's floor/unit and/or counseling patient: Coding Level of Care Code 47308 INT INP/OBS CARE 3/75MIN Diagnoses Acute electrocardiogram changes R94.31 S/P coronary artery stent placement Z95.5 CAD (coronary artery disease) I25.10 Associated angina: unspecified whether angina present Coronary Disease-Associated Artery/Lesion type: viejas artery [place] vs. transplanted heart: viejas heart HTN (hypertension) I10 (3) CAD (coronary artery disease) Associated angina: unspecified whether angina present Coronary Disease-Assoc iated Artery/Lesion type: viejas artery [place] vs. transplanted heart: viejas heart Qualified Code(s): I25.10 - Atherosclerotic heart disease of viejas coronary artery without angina pectoris
[2025-06-26] MEDS: ASPIRIN CHEW 324 MG PO STA (21:13)
[2025-06-26] MEDS: HEPARIN SOD (PORCINE) 1000 UNIT/ML IV ONE (21:14)
[2025-06-26] MEDS: HEPARIN 25000 UNIT/500 ML D5W 25,000 UNITS/500 ML BAG IV SCH (21:16)
[2025-06-26] MEDS ORDERED: CARBOHYDRATES FOR HYPOGLYCEMIA PO PRN (21:49)
[2025-06-26] MEDS ORDERED: ACETAMINOPHEN 325 MG TAB PO PRN (21:49)
[2025-06-26] MEDS ORDERED: GLUCAGON FOR INJ 1 MG VIAL SQ PRN (21:49)
[2025-06-26] MEDS ORDERED: GLUCOSE 40% GEL 15 GM TUBE PO PRN (21:49)
[2025-06-26] MEDS ORDERED: GLUCOSE 10 TAB/TUBE PO PRN (21:49)
[2025-06-26] MEDS ORDERED: DEXTROSE 50% 50 ML SYRINGE IV PRN (21:49)
[2025-06-26] MEDS: INSULIN ASPART PER UNIT CHARGE SC SCH (22:54)
[2025-06-26] MEDS: Heparin IV Adult Wt-Based Low-Dose w/ INITIAL Bolus Protocol IV STA (22:54)
[2025-06-27] MEDS ORDERED: PROMETHAZINE HCL 25 MG TAB PO PRN (01:25)
[2025-06-27] MEDS: NITROGLYCERIN SL 0.4 MG/TAB TAB ONE ×2 (02:57→03:20)
[2025-06-27 03:41] LABS: Hematocrit (blood only) 28.0 % (37.0-47.0); Hemoglobin 9.1 g/dl (12.0-16.0); Immature Granulocytes # (auto) 0.02 K/uL (0.01-0.20); Immature Granulocytes % (auto) 0.4 %; Mean Corpuscular Hemoglobin 28.8 pg (25.0-34.0); Mean Corpuscular Volume 88.6 fL (80.0-100.0); Platelet Count 182 K/uL (130-400); RDW Standard Deviation 46.0 fL (36.4-46.3); Red Blood Count 3.16 M/uL (4.20-5.40); White Blood Count 5.43 K/ul (4.8-10.8)
[2025-06-27 04:05] LABS: ANTI-Xa, UFH(UnfractionatedHep 0.29 IU/ml (0.3-0.7)
[2025-06-27 04:09] LABS: INR 1.0 (0.9-1.1); Partial Thromboplastin Time 43 Seconds (21-31); Prothrombin Time 11.2 Seconds (9.0-12.0)
[2025-06-27 04:29] LABS: Alanine Aminotransferase 6.0 U/L (7-52); Albumin Globulin Ratio 1.3 (0.9-2); Alkaline Phosphatase 61.0 U/L (34-104); Anion Gap 7.0 (3-11); Bilirubin,Total 0.5 mg/dl (0.2-1.0); Blood Urea Nitrogen 15.0 mg/dl (6-23); Calcium 9.0 mg/dl (8.6-10.3); Carbon Dioxide 27.0 mmol/L (21-32); Chloride 104.0 mmol/L (98-107); Creatinine Clr Calc Pharmacy 69.2 ml/min; Globulin 2.7 gm/dl (2.5-4.0); Glucose 120.0 mg/dl (70-99(Fasting)); Magnesium 1.8 mg/dl (1.7-2.4); Potassium 3.2 mmol/L (3.5-5.1); Sodium 138.0 mmol/L (136-145); Total Protein 6.2 gm/dl (6.0-8.3)
[2025-06-27] MEDS: LEVOTHYROXINE SODIUM 137 MCG TABLET PO SCH (05:28)
[2025-06-27 07:45] LABS: Hemoglobin A1C 6.5 % (4.5-5.6)
[2025-06-27] MEDS: POTASSIUM CHLORIDE CRTAB 20 MEQ TABCR PO STA (08:02)
[2025-06-27] MEDS: NIFEdipine EXTENDED REL 30 MG TABCR PO SCH ×2 (08:03→20:54)
[2025-06-27] MEDS: ISOSORBIDE MONO EXTENDED REL 60 MG TABCR PO SCH (08:03)
[2025-06-27] MEDS: METOPROLOL TARTRATE 50 MG TAB PO SCH (08:04)
[2025-06-27] MEDS: CLOPIDOGREL BISULFATE 75 MG TAB PO SCH (08:04)
[2025-06-27] MEDS: ASPIRIN 81 MG ECTAB PO SCH (08:04)
[2025-06-27] MEDS ORDERED: Nursing to Pharmacy Communication SCH (10:15)
[2025-06-27 10:41] LABS: ANTI-Xa, UFH(UnfractionatedHep 0.26 IU/ml (0.3-0.7)
[2025-06-27] MEDS: INSULIN ASPART PER UNIT CHARGE SC SCH ×2 (12:10→20:47)
--- NOTE | 2025-06-27 14:33 | Hospitalist Progress Note ---
Date of Service June 27, 2025 Assessment & Plan (1) Chest pain: Plan Assessment The patient is a 59-year-old female with a past medical history including CAD, CKD stage IIIb, diabetes mellitus, hypertension, pulmonary embolism, history of bilateral BKA, urinary tract infection. She underwent a cardiac catheterization on 05/31/2025, had 3 stents placed, and was discharged to home. She reports that over the past week she has had intermittent issues with chest pain, spasms, and dyspnea on exertion. She thought that the symptoms would go away, however, due to persistence of symptoms and worsening over the past 24 hours, she presented to the ED for assessment. She is currently stable, however, due to new onset chest discomfort following recent cath stenting, further workup is warranted by cardiology. #Chest pain/dyspnea exertion/CAD/hypertension/recent stent placement/hypertension Assessment: Having chest pressure two weeks post-op CAD stenting, possible concern for stent complications versus worsening coronary plaque build up in distal circumflex arteries, troponins have been negative, but EKG does show T wave inversion, which is different from past EKG studies. 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 Plan: - Continue med tele - Continue heparin drip - Continue aspirin, clopidogrel, isosorbide mononitrate, metoprolol tartrate, and nifedipine. - Cards following, Dr. Cason and Dr. Christian are managing - For pain management: - Continue acetaminophen 650 mg by mouth every 6 hours as needed for mild pain or fever - Oxycodone 10 mg p.o. every 6 hours as needed moderate to severe pain #Diabetes mellitus Assessment: Past hx of DM2, Glucose 142 on admission. Uses insulin coverage at home. Hemoglobin A1c 6.5% on addmission. Plan: - Continue Accu-Cheks with NovoLog SSI #Hypothyroidism Assessment: Hx of hypothyroidism Plan: Continue levothyroxine #Weight management Assessment: On Mounjaro in outpatient setting weekly for weight management. 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 No new problems. Vitals noted, in general she is awake and alert pleasant no distress. HEENT normocephalic atraumatic mucous membranes moist. Breathing unlabored no accessory muscle use good effort. Skin without rashes pallor or icterus. Neuro without focal deficits. Chest painstatus post cath. Appreciate cardiology input. Otherwise as above. Naima Peña was seen at beside this AM, feels the same chest pressure she came in with last night. She has GERD and tried taking her anti-acid meds, but the pain persisted and attributed the pain to chest pressure instead. It currently does not radiate anywhere, rated a 1/10. She took nitro overnight, which helped relieve the chest pain. 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 Denies nausea, vomiting, SOB, numbness, or tingling. Review of Systems Review of Systems: ROS as noted in HPI. Physical Exam Physical Exam: General: In no acute distress. Lying comfortably in bed. HEENT: No JVD. PERRLA. No cervical lymphadenopathy. Moist mucous membranes. CV: S1 and S2 sounds present. No murmurs, rubs, or gallops. RRR. Resp: CTA B/L. No rales, wheezing, or rhonchi. GI: Normoactive bowel sounds. No tenderness to palpation. No masses appreciated. MSK: No signs of peripheral edema. B/L ATK amputations visualized on exam. Psych: Appropriate mood and affect. Results & Data Results & Data Vital Signs (Past 12 Hours) Vital Signs Temp Pulse Resp BP Pulse Ox O2 Del Method 06/27/25 08:11 36.8 C 70 132/69 75 L Room Air 06/27/25 03:30 74 113/66 06/27/25 03:15 76 136/70 06/27/25 03:00 162/79 H 06/27/25 02:50 36.6 C 78 20 150/76 H 96 Room Air 06/26/25 21:51 36.8 C 82 16 175/75 H 98 Room Air 06/26/25 21:34 Room Air
[2025-06-27] MEDS: MIDAZOLAM HCL 1 MG/ML 2ML VIAL ONE ×2 (16:42→16:43)
[2025-06-27] MEDS: NITROGLYCERIN/D5W 100MCG/ML 20ML SYR ONE (16:43)
[2025-06-27] MEDS: HEPARIN (PORCINE) 1000 UNIT/ML 10 ML (CATH LAB USE ONLY) ONE (16:43)
[2025-06-27] MEDS: IODIXANOL (VISIPAQUE) 320 MG/ML 100ML IV ONE (16:43)
[2025-06-27] MEDS: niCARdipine 2,000 MCG/20 ML SYR ONE (16:43)
[2025-06-27] MEDS: OPTIRAY 350 ONE (16:59)
--- NOTE | 2025-06-27 17:23 | Pre Anesthesia Assessment ---
Date of Service June 27, 2025 Pre Sedation Assessment Vital Signs Temp Pulse Pulse Resp BP BP Pulse Ox 06/27/25 15:30 76 06/27/25 14:15 72 18 174/97 H 94 06/27/25 11:00 98.4 F 87 100/63 06/27/25 08:11 98.2 F 70 132/69 75 L 06/27/25 08:00 70 06/27/25 03:30 74 113/66 06/27/25 03:15 76 136/70 06/27/25 03:00 162/79 H 06/27/25 02:50 97.9 F 78 20 150/76 H 96 06/26/25 21:51 98.2 F 82 16 175/75 H 98 06/26/25 21:34 06/26/25 21:15 155/82 H 06/26/25 21:06 80 21 98 06/26/25 21:03 80 19 98 06/26/25 21:00 152/82 H 06/26/25 21:00 152/82 H 06/26/25 21:00 152/82 H 06/26/25 20:54 81 15 98 06/26/25 20:33 82 16 98 06/26/25 20:32 189/93 H 06/26/25 20:27 80 12 99 06/26/25 20:21 82 21 98 06/26/25 20:15 148/85 H 06/26/25 20:15 82 20 98 06/26/25 20:13 168/112 H 06/26/25 20:12 82 16 100 06/26/25 20:09 82 26 H 98 06/26/25 19:51 77 23 98 06/26/25 19:48 78 23 97 06/26/25 19:45 140/69 06/26/25 19:33 77 18 96 06/26/25 19:30 159/78 H 06/26/25 19:27 77 21 95 06/26/25 19:00 78 15 145/75 H 97 06/26/25 18:30 78 164/96 H 06/26/25 18:30 79 18 06/26/25 18:30 164/96 H 06/26/25 18:30 164/96 H 06/26/25 18:30 164/96 H 06/26/25 18:30 164/96 H 06/26/25 18:30 164/96 H 06/26/25 18:24 79 21 06/26/25 18:10 79 210/106 H 06/26/25 18:00 210/106 H 06/26/25 18:00 210/106 H 06/26/25 18:00 210/106 H 06/26/25 18:00 81 16 210/106 H 100 06/26/25 17:54 82 15 98 06/26/25 17:48 84 06/26/25 17:42 86 20 99 06/26/25 17:33 98 06/26/25 17:33 83 18 229/123 H 98 06/26/25 17:33 99 O2 Del Method 06/27/25 15:30 06/27/25 14:15 Room Air 06/27/25 11:00 Room Air 06/27/25 08:11 Room Air 06/27/25 08:00 06/27/25 03:30 06/27/25 03:15 06/27/25 03:00 06/27/25 02:50 Room Air 06/26/25 21:51 Room Air 06/26/25 21:34 Room Air 06/26/25 21:15 06/26/25 21:06 06/26/25 21:03 06/26/25 21:00 06/26/25 21:00 06/26/25 21:00 06/26/25 20:54 06/26/25 20:33 06/26/25 20:32 06/26/25 20:27 06/26/25 20:21 06/26/25 20:15 06/26/25 20:15 06/26/25 20:13 06/26/25 20:12 06/26/25 20:09 06/26/25 19:51 06/26/25 19:48 06/26/25 19:45 06/26/25 19:33 06/26/25 19:30 06/26/25 19:27 06/26/25 19:00 Room Air 06/26/25 18:30 06/26/25 18:30 06/26/25 18:30 06/26/25 18:30 06/26/25 18:30 06/26/25 18:30 06/26/25 18:30 06/26/25 18:24 06/26/25 18:10 06/26/25 18:00 06/26/25 18:00 06/26/25 18:00 06/26/25 18:00 Room Air 06/26/25 17:54 06/26/25 17:48 06/26/25 17:42 06/26/25 17:33 Room Air 06/26/25 17:33 Room Air 06/26/25 17:33 Room Air Cardiovascular + regular rate Respiratory + respiratory effort normal Pre-Sedation Airway Assessment Smoking Status: Never smoker Hx Sleep Apnea: No Hx Difficult Intubation: No Short, Thick Neck: No Thyromental Distance: < 3.5 Finger Breadths Oral Cavity: + WNL Mallampati Class: II ASA: ASA2 NPO Status Date of Last Intake of Fluids: 06/26/25 Time of Last Intake of Fluids: 23:00 Date of Last Intake of Solid Food: 06/26/25 Time of Last Intake of Solid Foods: 23:00 Procedure Planning Contraindications for Sedation: none Current Medications Reviewed: Yes Notes The planned sedation has been discussed with the patient. Informed Consent was obtained. I have identified the patient, determined the appropriateness of sedation and have assessed the patient immediately prior to the procedure. All medicine(s) and interventions are by my order.
[2025-06-27 18:03] LABS: ANTI-Xa, UFH(UnfractionatedHep < 0.10 IU/ml (0.3-0.7)
--- NOTE | 2025-06-27 18:09 | Billing Data ---
Date of Service June 27, 2025 Coding Level of Care Code 20739 SUB INP/OBS CARE
--- NOTE | 2025-06-27 18:42 | Cardiac Catheterization ---
[facility] Data: Business Support Cardiac Status Clinical evaluation leading to the procedure CAD Presenation: Unstable angina Diagnostic Physicians Name: Tomas Christian MD Closure Device Recommendations: Medical Therapy and/or Counseling Cardiac Cath Procedure Full Procedure Date June 27, 2025 Pre-Procedure Diagnosis Pre-Procedure Diagnosis: Angina and CAD AUC Score AUC Score: 7 Post-Procedure Diagnosis Post-Procedure Diagnosis: Severe CAD and Normal Intracardiac Pressures Procedure(s) Performed Procedure(s) Performed: Coronary Angiography, Left Heart Cath and Femoral Artery Angiography Property Portfolio Officer Tomas Christian MD Assembly Line Leader(s) Sociology Research Assistant Estimated Blood Loss Estimated Blood Loss: 15 Medication(s) Medication(s): Fentanyl, Lidocaine 1% and Versed Summary of Findings Indication: History of multivessel CAD post multiple prior stents, last on 05/31/2025 (2 stents to circumflex, 1 to mid RCA with IVL). Here with recurrent rest and exertional chest pain. 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 Remainder of mid segment with 30% diffuse disease. Earlydistal vessel just after takeoff of D3 angulated with 40% stenosis. Short distal stent widely patent. Remainder of distal vessel small, severe diffuse disease up to 80% as wraps around apex. Small D1 with 90% ostial. Small D2 without significant disease. Circumflex -medium caliber, proximal to mid stent widely patent, distal stent widely patent. 60 % distal stenosis. Medium left PLB 60% proximal stenosis. RCA -medium caliber, calcified, 30% proximal disease, patent stent chain from proximal through mid and distal RCA into PDA. Prior area of mid in-stent restenosis at takeoff of acute marginal widely patent. 30% diffuse distal into PDA in-stent restenosis. LVEDP -15 Arterial Closure: StarClose Summary: 1. Multivessel coronary artery disease -Widely patent proximal RCA to PDA stents Widely patent proximal and mid circumflex stents. Late-distal circumflex after stents 60-70% stenosis. Proximal left PLB with 60% stenosis. Widely patent proximal and distal LAD stents. 40% mid LAD. Small apical LAD with 80% diffuse disease. 90% ostial small D1 2. Normal intracardiac filling pressure Recommendations: No apparent complications from recent stenting procedure and no new acute high risk disease. Has small vessel severe disease in apical LAD, D1 and OM. Also has residual distal circumflex disease downstream from prior stents which appears borderline for hemodynamic significance. Would not expect any of this disease to cause rest pain symptoms. Suspect intervention to distal circumflex would be difficult through previous stents and higher risk. In that setting recommend maximizing antianginal therapy first. Will plan to start Ranexa 500 mg twice daily. Continue to titrate current beta- porfirio, CCB, and nitrates for improved BP control Continue dual-antiplatelet therapy for at least 6 months post recent stenting and consider extended P2Y12 in the setting of overlapping stents Continue statin, and ASCVD risk factor modification If refractory exertional chest symptoms despite medical management repeat attempted intervention to distal circumflex could be considered. Hemodynamics Rest Ao:: 182/72/116 Final Ao: 166/66/102 LV: 172/15 Recommendations Recommendations: Medical Therapy and/or Counseling Specimens Specimens: None Radiation Exposure (mGy) 455 Contrast (mls) 40 Anesthesia Moderate 9977-2429 Procedural Complication(s) None Disposition PCU I attest to the content of the Intraoperative Record and any orders documented therein. Any exceptions are noted below. [facility] Card Cath Procedure Codes Cardiac Catheterization Procedure 1: Cardiovascular Cath Procedures: 49734 Coronaries and LHC (+/-LV) Moderate Sedation Procedure 1: Sedation/Anesthesia: 80440 Mod Sedation by the same physician;Init15 Min Child Age 5 & Up Procedure 2: Sedation/Anesthesia: 15915 Mod Sedation by the same physician; Ea [id number] Minutes PG Care Time/CCT Total # of Minutes Spent Total Time Spent with Patient: Total time spent is greater than 50% in coordination of care (as documented) at patient's floor/unit and/or counseling patient:
[2025-06-27 20:16] VITALS: RESP 18
[2025-06-27] MEDS: NITROGLYCERIN SL 0.4 MG/TAB TAB SL PRN (20:47)
[2025-06-27] MEDS: RANOLAZINE 500 MG ER TAB PO SCH (20:53)
[2025-06-27] MEDS: ONDANSETRON INJ 2 MG/ML 2 ML VIAL IV PRN (20:58)
[2025-06-27] MEDS ORDERED: HYDROCORTISONE 1% CRM 30 GM TUBE EXT PRN (23:59)
[2025-06-28] MEDS: CETIRIZINE HCL 10 MG TABLET PO PRN (00:48)
--- NOTE | 2025-06-28 05:37 | Electrocardiogram Report ---
Test Reason : Blood Pressure : */* mmHG Vent. Rate : 83 BPM Atrial Rate : 83 BPM P-R Int : 198 ms QRS Dur : 130 ms QT Int : 426 ms P-R-T Axes : 57 99 11 degrees QTcB Int : 500 ms Normal sinus rhythm Right bundle branch block Abnormal ECG When compared with ECG of 31-May-2025 12:15, T wave inversion now evident in Anterior leads Confirmed by Moe Cullen ([id number]) on 06/28/2025 5:36:43 AM Referred By: REFERRED SELF Confirmed By: Moe Cullen
--- NOTE | 2025-06-28 05:37 | Electrocardiogram Report ---
Test Reason : Blood Pressure : */* mmHG Vent. Rate : 75 BPM Atrial Rate : 75 BPM P-R Int : 190 ms QRS Dur : 138 ms QT Int : 462 ms P-R-T Axes : 50 89 15 degrees QTcB Int : 515 ms Normal sinus rhythm Right bundle branch block Abnormal ECG When compared with ECG of 26-Jun-2025 17:31, T wave inversion less evident in Anterior leads Confirmed by Moe Cullen ([id number]) on 06/28/2025 5:37:17 AM Referred By: REFERRED SELF Confirmed By: Moe Cullen
[2025-06-28 06:13] LABS: Hematocrit (blood only) 29.5 % (37.0-47.0); Hemoglobin 9.6 g/dl (12.0-16.0); Immature Granulocytes # (auto) 0.01 K/uL (0.01-0.20); Immature Granulocytes % (auto) 0.2 %; Mean Corpuscular Hemoglobin 29.4 pg (25.0-34.0); Mean Corpuscular Volume 90.5 fL (80.0-100.0); Platelet Count 171 K/uL (130-400); RDW Standard Deviation 47.6 fL (36.4-46.3); Red Blood Count 3.26 M/uL (4.20-5.40); White Blood Count 4.89 K/ul (4.8-10.8)
[2025-06-28 06:46] LABS: Alanine Aminotransferase 7.0 U/L (7-52); Albumin Globulin Ratio 1.2 (0.9-2); Alkaline Phosphatase 61.0 U/L (34-104); Anion Gap 7.0 (3-11); Bilirubin,Total 0.7 mg/dl (0.2-1.0); Blood Urea Nitrogen 20.0 mg/dl (6-23); Calcium 9.2 mg/dl (8.6-10.3); Carbon Dioxide 27.0 mmol/L (21-32); Chloride 105.0 mmol/L (98-107); Creatinine Clr Calc Pharmacy 52.1 ml/min; Globulin 2.9 gm/dl (2.5-4.0); Glucose 105.0 mg/dl (70-99(Fasting)); Magnesium 2.0 mg/dl (1.7-2.4); Potassium 4.1 mmol/L (3.5-5.1); Sodium 139.0 mmol/L (136-145); Total Protein 6.5 gm/dl (6.0-8.3)
[2025-06-28 06:55] LABS: INR 1.0 (0.9-1.1); Partial Thromboplastin Time 27 Seconds (21-31); Prothrombin Time 10.9 Seconds (9.0-12.0)
--- NOTE | 2025-06-28 10:07 | Discharge Summary ---
Date of Service June 28, 2025 Admission HPI Per Admitting Provider The patient is a 59-year-old female with a past medical history including CAD, CKD stage IIIb, diabetes mellitus, hypertension, pulmonary embolism, history of bilateral BKA, urinary tract infection. She underwent a cardiac catheterization on 05/31/2025, had 3 stents placed, and was discharged to home. She reports that over the past week she has had intermittent issues with chest pain, spasms, and dyspnea on exertion. She thought that the symptoms would go away, however, due to persistence of symptoms and worsening over the past 24 hours, she presented to the ED for assessment. Admission Exam Per Admitting Provider The patient is awake, alert and oriented 3, well developed and well nourished, normocephalic and atraumatic, lying in bed and in no acute distress. HEENT--PERRL, EOMI, mucous membranes and oropharynx mildly dry. Neck--supple. No JVD. No bruits. Thyroid normal, trachea midline, no adenopathy. Heart--normal S1 and S2. No murmurs, rubs or gallops. Lungs--clear bilaterally, no respiratory distress, no accessory muscle use. Abdomen--normal bowel sounds and soft. Nontender. Nondistended, no hernias or masses, no organomegaly. Extremities-- No edema. Bilateral BKA Dermatologic--normal skin turgor, normal color, no abnormal lymph nodes, no rash. Neurologic--cranial nerves II through XII grossly intact. Rheumatologic--normal range of motion. Psychiatric--normal affect. Principal Diagnosis Stable angina Discharge Exam General: In no acute distress. Lying comfortably in bed. HEENT: No JVD. PERRLA. No cervical lymphadenopathy. Moist mucous membranes. CV: S1 and S2 sounds present. No murmurs, rubs, or gallops. RRR. Resp: CTA B/L. No rales, wheezing, or rhonchi. GI: Normoactive bowel sounds. No tenderness to palpation. No masses appreciated. MSK: No signs of peripheral edema. B/L ATK amputations visualized on exam. Psych: Appropriate mood and affect. Discharge Data Allergies Allergy/AdvReac Type Severity Reaction Status Date / Time butorphanol Allergy Severe SHORTNESS Verified 05/31/25 07:14 OF BREATH ropivacaine Allergy Severe Anaphylaxis Verified 05/31/25 07:14 pravastatin Allergy Mild Itching Verified 05/31/25 07:14 spironolactone Allergy Mild RASH Verified 05/31/25 07:14 atorvastatin Allergy Unknown RASH Verified 05/31/25 07:14 fenofibrate Allergy Unknown RASH Verified 05/31/25 07:14 hydralazine AdvReac Mild Itching Verified 05/31/25 07:14 vancomycin AdvReac Mild RASH-DEVYN Verified 05/31/25 07:14 SYNDROME Consultations 06/26/25 20:05 ED Decision to Admit Stat 06/26/25 21:49 Consult Cardiology Routine Procedures Performed Operation Date: 06/27/25 13:00 Actual Procedures s Cineradiography w/Routine Exam - Tomas Christian MD p Cath, Left with Cors and Vent - Tomas Christian MD Ordered Studies 06/27/25 09:33 CL Cath Imgs for PACS use only Routine Hospital Course (1) CAD (coronary artery disease): (2) Hypertensive emergency: (3) Angina at rest: Plan Assessment The patient is a 59-year-old female with a past medical history including CAD, CKD stage IIIb, diabetes mellitus, hypertension, pulmonary embolism, history of bilateral BKA, urinary tract infection. She underwent a cardiac catheterization on 05/31/2025, had 3 stents placed, and was discharged to home. She reports that over the past week she has had intermittent issues with chest pain, spasms, and dyspnea on exertion. She thought that the symptoms would go away, however, due to persistence of symptoms and worsening over the past 24 hours, she presented to the ED for assessment. She was taken back to the optical laboratory technician, where no complications were found post-stenting and the following findings: "late-distal circumflex after stents 60-70% stenosis. Proximal left PLB with 60% stenosis. Widely patent proximal and distal LAD stents. 40% mid LAD. Small apical LAD with 80% diffuse disease. 90% ostial small D1" as well as a normal intracardiac filling pressure. Antianginal therapy will be first line given no need for cath intervention at this time and intervention will be re-assessed in case of persistent chest pain. #Chest pain/dyspnea exertion/CAD/hypertension/recent stent placement/hypertension She was found to have small vessel severe disease in apical LAD, D1 and OM. Also has residual distal circumflex disease downstream from prior stents which appears borderline for hemodynamic significance. We did not believe these findings would cause rest pain symptoms. and intervention to distal circumflex would be difficult through previous stents and higher risk. In this setting, maximizing antianginal therapy. - Started on Ranexa 500mg BID - Continue DAPT (aspirin and plavix) for at least 6 months post recent stenting and consider extended P2Y12 in the setting of overlapping stents - Continue statin and ASCVD risk factor modification - Intervention to distal circumflex could be considered if refractory exertional chest symptoms despite medical management repeat attempted - Dr. Christian and Dr. Cason will continue following post d/c - Continue home aspirin, clopidogrel, isosorbide mononitrate, metoprolol tartrate - Continue nifedipine at reduced dose 30mg BID due to constipation #Diabetes mellitus Past hx of DM2, Glucose 142 on admission. Uses insulin coverage at home. Hemoglobin A1c 6.5% on admission. We continued Accu-Cheks with NovoLog SSI inpatient. #Hypothyroidism Hx of hypothyroidism, continued levothyroxine inpatient #Weight management On Mounjaro in outpatient setting weekly for weight management, was advised to continue med outpatient. 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 It was well controlled with pain management for concurrent chest pain: acetaminophen 650 mg by mouth every 6 hours as needed for mild pain or fever and oxycodone 10 mg p.o. every 6 hours as needed moderate to severe pain. #Anxiety Hx of anxiety, advised to continue alprazolam as outpatient. Total Time Total Time Spent Total Time Spent (In Minutes): Less than 30 Discharge Plan Discharge Items Patient Disposition: Home - Self-Care Reason For Visit: CP, EKG CHANGE, S/P CATH WITH STENTS 05/31/25 Discharge Diagnosis: severe CAD, stable angina Condition on Discharge: Good Activity: Per Instructions section Non-emergency contact: Primary Care Provider and Auger Supervisor Call non-emergency contact if: your symptoms worsen and your pain is not controlled Follow-up/Referrals: Kita Arrieta PA-C [Primary Care Provider] - 07/04/25 11:00 am Vishal Chavez DO [Resident] - Diet: Heart Healthy Addtl Attending Provider Instructions: You were evaluated and treated at [facility] for intermittent worsening chest pain, concerning especially due to your extensive cardiac history with recent stents placed. After diagnostic catheterization, based on good patency of your coronary vessels your chest pain is considered anginal, and thus Dr. Christian and Dr. Cason are recommending that you start Ranexa 500mg twice daily indefinitely. Based on your current medical and clinical stability, we feel comfortable with your discharge home today. #Angina/Severe CAD/hypertension/recent stent placement/hypertension Assessment: Having chest pressure two weeks post-op CAD stenting, possible concern for stent complications versus worsening coronary plaque build up in distal circumflex arteries, troponins have been negative, but EKG does show T wave inversion, which is different from past EKG studies. Cath procedure showing good coronary vessel patency. Plan: - Adding Ranexa 500mg twice daily to your daily angina/CAD regimen - Continue aspirin, clopidogrel, isosorbide mononitrate, metoprolol tartrate, and nifedipine. Reducing dosage of nifedipine to 30mg twice daily (down from 60mg day, 30mg night) due to its likely contribution to constipation - Followup with Dr. Cason outpatient in Aug 2025, but may call to be scheduled sooner if any concerns - Followup with PCP office, either Mattie Arrieta or Dr. Chavez, as they are both in the same [facility] office #Diabetes mellitus type 2, on insulin Assessment:Glucose 142 on admission, 118 this AM - continue home insulin regimen #Hypothyroidism Assessment: Hx of hypothyroidism Plan: Continue levothyroxine #Weight management Assessment: On Cordellunbhaktiro in outpatient setting weekly for weight management. Plan: - Continue weekly injections #Anxiety Assessment: Hx of anxiety Plan: - Continue alprazolam as needed Pending Studies at Discharge: No Stand-Alone Forms: My [facility] en-Gauge, Smoking Cessation Medications and DC Order Prescriptions: New ranolazine 500 mg Tablet Extended Release 12 Hr 500 mg PO BID 30 Days Qty: 60 2RF Continued alprazolam [Xanax] 1 mg tablet 1 mg PO TID aspirin [Adult Low Dose Aspirin] 81 mg tablet,delayed release (DR/EC) 81 mg PO DAILY famotidine [Pepcid] 20 mg tablet 20 mg PO DAILY PRN (Reason: Acid Reflux) isosorbide mononitrate 120 mg tablet extended release 24 hr 120 mg PO DAILY levothyroxine 137 mcg capsule 137 mcg PO DAILY oxycodone 20 mg tablet 10 mg PO Q6H PRN (Reason: Pain) promethazine 25 mg tablet 25 mg PO Q6H PRN (Reason: Nausea And Vomiting) metoprolol tartrate [Lopressor] 50 mg Tablet 50 mg PO BID Mounjaro 10 mg/0.5 mL Pen Injector 10 mg SUBCUT WK Humalog KwikPen Insulin 200 unit/mL (3 mL) insulin pen See Rx Instructions .ROUTE .COMPLEX Rx Instructions: * Patient reports SSI if BSG >200 mg/dL clopidogrel 75 mg tablet 75 mg PO DAILY Qty: 90 3RF Changed nifedipine 30 mg tablet extended release 24hr 30 mg PO BID 30 Days Qty: 60 0RF Discontinued nifedipine [Procardia XL] 90 mg tablet extended release 24hr 60 mg PO DAILY Rx Instructions: 60 mg in am and 30 mg in pm Discharge Orders: Discharge Order (Routine); Ordered 06/28/25 Ordered By: Vishal Mosquera/Other Patient Handouts: Unstable Angina, Managing Type 2 Diabetes, Discharge Instructions for Angina Admission Data Admit Date/Time: 06/26/25 20:37 Attending Provider: Chao La Admit Provider: Albert Cruz Primary Care Provider: Kita Arrieta Other Providers: Albert Cruz; Tomas Christian Other Interventions: Discharge Summary Assessment (RN) Last Done: 06/28/25 12:18 Supervising Physician Co-Signing Physician Notes I personally examined the patient and verified all dunbar points of history and exam, discussed case, and agree with decision making with Dr Chavez and Greg Sanchez MS4 seen at the same time as cardiology. Input greatly appreciated. Feeling good and would like to go home. Discussed statin, she is willing to try again cardiology will work with her with this in the office. Vitals noted, in general she is awake and alert pleasant no distress. HEENT normocephalic atraumatic mucous membranes moist. Breathing unlabored no accessory muscle use good effort. Skin without rashes pallor or icterus. Neuro without focal deficits. Chest painseems most consistent with small vessel anginacath done, no interventions would be clearly beneficialmed management/escalation. Ranexa added. I have been asked to clarify if this could be a hypertensive urgencyclinically I suspect the elevation of blood pressure was reactive to the physiologic stress/sympathetic overdrive of the angina, but I suppose it could have been the blood pressure creating excess afterload creating the anginaeither way the plan would be med management, and either way she is safe for home. Otherwise as above. Resident Activity Tracking Resident Involvement: Resident Care Provided Care Provided: Adult Hospital Medicine
[2025-06-28 11:11] VITALS: BP 113/65; PULSE 74; TEMP 98.1; O2SAT 98
--- NOTE | 2025-06-28 11:37 | Cardiology Progress Note ---
Date of Service June 28, 2025 Assessment & Plan (1) Chest pain: Plan: I suspect her chest pain is either small vessel disease versus possible GI given his response to sublingual nitroglycerin. Not sure when she had her last GI evaluation but if she persists with the chest pain despite trying to maximize her medical therapy we may want to have her see GI to be rescoped to see if there is any upper GI source of her chest pain. For now we will add Ranexa I can increase her nitrates as an outpatient as well we will continue her beta- porfirio therapy. She will have labs later this month and I will get her started on a statin after I see her levels. In the meantime she is minh start co-Q10. I would consider getting her into cardiac rehab however transportation may be difficult for her since she lives in [place]. I did suggest that maybe she at least set up a few sessions to come up with an exercise regimen to see if she can increase her activity level at home to help with her chronic angina. I will follow-up with her in approximately 1 month or sooner if needed. From my standpoint she is probably stable to be discharged later today (2) S/P coronary artery stent placement: (3) CAD (coronary artery disease): (4) Hypertensive emergency: (5) Hx of REUBEN (above knee amputation): Plan Await her left heart catheterization to redefine her coronary anatomy since her stents of the circumflex and the RCA. Depending on those results further recommendations may follow. I would consider trying to max out her isosorbide we will have to cut back on her nifedipine dose to the 30 mg twice a day which was what she was on before due to the constipation. We can also add ranolazine for its antianginal properties in addition to her beta-porfirio. We again discussed need for statin therapy. Cardiac rehabilitation is somewhat difficult in her due to her amputations. I would recommend that she at least participate in a few sessions to come up with the altered exercise regimen to help improve her anginal symptoms. Admission and Anticipated Discharge Date Admission Date: June 26, 2025 Naima Peña was seen today in cardiac follow-up after her catheterization yesterday. Her cath was reviewed with Dr. Christian and she does have a area distal to her circumflex stents that is borderline perhaps 60%. It may be a somewhat difficult intervention and I think we should try to medically maximize her treatments at this time and she is agreeable. We have added ranolazine. Will cut back on her nifedipine to 30 mg twice a day. I will start her on statin after she has her baseline lipids checked later this month. As you know she has had problems with questionable statin allergies in the past but I think it is important that we make another attempt to getting her on statin therapy. We discussed getting her on co-Q10 for now until I see her in the office in a month. Review of Systems Review of Systems: All systems reviewed & are unremarkable except as noted in HPI & below Physical Exam Physical Exam: Awake alert oriented in no distress at this time Cardiovascular: RRR, no murmur, no edema Chest (Breasts): normal inspection/palpation of breasts Results & Data Vital Signs (Past 12 Hours) Vital Signs Temp Pulse Pulse Resp BP Pulse Ox O2 Del Method 06/28/25 11:10 36.7 C 74 18 113/65 98 Room Air 06/28/25 10:34 67 06/28/25 07:36 36.6 C 69 18 105/59 L 96 Room Air 06/28/25 03:28 36.4 C L 69 18 104/69 98 Room Air 06/27/25 23:50 74 Laboratory Results Abnormal lab results 06/27/25 06/27/25 06/27/25 Range/Units 12:09 17:26 17:32 RBC (4.20-5.40) M/uL Hgb (12.0-16.0) g/dl Hct (37.0-47.0) % RDW Std Deviation (36.4-46.3) fL Heparin Anti-Xa, Unfract < 0.10 L (0.3-0.7) IU/ml Glucose (70-99(Fasting)) mg/dl POC Glucose 136 H 100 H (70-99) mg/dl AST (13-39) U/L 06/28/25 06/28/25 06/28/25 Range/Units 05:25 07:39 11:14 RBC 3.26 L (4.20-5.40) M/uL Hgb 9.6 L (12.0-16.0) g/dl Hct 29.5 L (37.0-47.0) % RDW Std Deviation 47.6 H (36.4-46.3) fL Heparin Anti-Xa, Unfract (0.3-0.7) IU/ml Glucose 105 H (70-99(Fasting)) mg/dl POC Glucose 118 H 109 H (70-99) mg/dl AST 10 L (13-39) U/L (3) CAD (coronary artery disease) Associated angina: unspecified whether angina present Coronary Disease- Associated Artery/Lesion type: [place] artery [place] vs. transplanted heart: [place] heart Qualified Code(s): I25.10 - Atherosclerotic heart disease of [place] coronary artery without angina pectoris
--- NOTE | 2025-06-28 11:48 | Cardiology Consultation ---
Date of Consultation June 27, 2025 Assessment & Plan (1) Chest pain: (2) S/P coronary artery stent placement: (3) CAD (coronary artery disease): (4) Hypertensive emergency: (5) Hx of REUBEN (above knee amputation): Plan Await her left heart catheterization to redefine her coronary anatomy since her stents of the circumflex and the RCA. Depending on those results further recommendations may follow. I would consider trying to max out her isosorbide we will have to cut back on her nifedipine dose to the 30 mg twice a day which was what she was on before due to the constipation. We can also add ranolazine for its antianginal properties in addition to her beta-porfirio. We again discussed need for statin therapy. Cardiac rehabilitation is somewhat difficult in her due to her amputations. I would recommend that she at least participate in a few sessions to come up with the altered exercise regimen to help improve her anginal symptoms. 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 Joselito Christian and underwent staged multivessel interventions. Since her procedure on the she has continued to have chest discomfort. I saw her in the office and tried adjusting medications but she has continued to have chest discomfort. She called the office this week with increasing chest pain and I recommended she come to the hospital for admission. She was ruled out for [place] by EKGs and enzymes however did have chest discomfort last night and received 3 sublingual nitroglycerin. We discussed repeating a diagnostic coronary arteriogram to recheck her recent stents to make sure they are okay and she was agreeable. I have already spoken with Dr. Christian and we plan to do her cath later today. She inform me that she has been having more constipation on the 90 mg total dosage of nifedipine so organ have to cut back on this. This was increased in the office to try to control her chest pain. She is probably at the maximum dose of her beta-porfirio at this time due to relative bradycardia. We have also reviewed her possible statin intolerance and that we will in all likelihood need to get her on statin therapy at some point because of her recurrent disease. She is scheduled for blood work later in July. Allergies Allergy/AdvReac Type Severity Reaction Status Date / Time butorphanol Allergy Severe SHORTNESS Verified 05/31/25 07:14 OF BREATH ropivacaine Allergy Severe Anaphylaxis Verified 05/31/25 07:14 pravastatin Allergy Mild Itching Verified 05/31/25 07:14 spironolactone Allergy Mild RASH Verified 05/31/25 07:14 atorvastatin Allergy Unknown RASH Verified 05/31/25 07:14 fenofibrate Allergy Unknown RASH Verified 05/31/25 07:14 hydralazine AdvReac Mild Itching Verified 05/31/25 07:14 vancomycin AdvReac Mild RASH-DEVYN Verified 05/31/25 07:14 SYNDROME Home Medications Medication Instructions Recorded Confirmed Type alprazolam 1 mg tablet (Xanax) 1 mg PO TID 03/10/23 06/26/25 History aspirin 81 mg tablet,delayed 81 mg PO DAILY 03/10/23 06/26/25 History release (Adult Low Dose Aspirin) famotidine 20 mg tablet (Pepcid) 20 mg PO DAILY PRN Acid Reflux 03/10/23 06/26/25 History isosorbide mononitrate 120 mg 120 mg PO DAILY 03/10/23 06/26/25 History tablet,extended release 24 hr levothyroxine 137 mcg capsule 137 mcg PO DAILY 03/10/23 06/26/25 History nifedipine 90 mg tablet,extended 60 mg PO DAILY 03/10/23 06/26/25 History release 24 hr (Procardia XL) oxycodone 20 mg tablet 10 mg PO Q6H PRN Pain 03/10/23 06/26/25 History promethazine 25 mg tablet 25 mg PO Q6H PRN Nausea And 03/10/23 06/26/25 History Vomiting insulin lispro 200 unit/mL (3 mL) See Rx Instructions .Route .COMPLEX 05/31/25 06/26/25 History subcutaneous pen (Humalog KwikPen U-200 Insulin) metoprolol tartrate 50 mg tablet 50 mg PO BID 05/31/25 06/26/25 History (Lopressor) tirzepatide 10 mg/0.5 mL 10 mg subcut WK 05/31/25 06/26/25 History subcutaneous pen injector (Mounjaro) clopidogrel 75 mg tablet 75 mg PO DAILY #90 tabs 06/01/25 06/26/25 Rx nifedipine 30 mg tablet,extended 30 mg PO BID 30 days #60 tabs 06/28/25 Rx release 24 hr ranolazine 500 mg tablet,extended 500 mg PO BID 30 days #60 tabs 06/28/25 Rx release,12 hr Patient History Social History Smoking Status: Never smoker Hx Alcohol Use: No Hx Substance Use: No Preferred Language: Nepali Communication Ability: Effective [employer] Coordinator Required: No Beliefs That Will Affect Care: Islam Islam Beliefs: Maegan Current Living Situation: Spouse Other Information That Helps Us Care for You: No Feels Safe at Home: Yes Safety Concerns: Feels Safe At This Time Assistive Devices: Prosthesis and Wheelchair Review of Systems Review of Systems: All systems reviewed & are unremarkable except as noted in HPI & below Physical Exam Physical Exam: Awake alert oriented in no distress at this time Respiratory: Lungs clear to auscultation bilaterally Cardiovascular: Heart regular no new murmurs noted Bilateral [id number] amputations Results & Data Vital Signs (Past 12 Hours) Vital Signs Temp Pulse Pulse Resp BP BP Pulse Ox 06/27/25 08:11 36.8 C 70 132/69 75 L 06/27/25 03:30 74 113/66 06/27/25 03:15 76 136/70 06/27/25 03:00 162/79 H 06/27/25 02:50 36.6 C 78 20 150/76 H 96 06/26/25 21:51 36.8 C 82 16 175/75 H 98 06/26/25 21:34 06/26/25 21:15 155/82 H 06/26/25 21:06 80 21 98 06/26/25 21:03 80 19 98 06/26/25 21:00 152/82 H 06/26/25 21:00 152/82 H 06/26/25 21:00 152/82 H 06/26/25 20:54 81 15 98 O2 Del Method 06/27/25 08:11 Room Air 06/27/25 03:30 06/27/25 03:15 06/27/25 03:00 06/27/25 02:50 Room Air 06/26/25 21:51 Room Air 06/26/25 21:34 Room Air 06/26/25 21:15 06/26/25 21:06 06/26/25 21:03 06/26/25 21:00 06/26/25 21:00 06/26/25 21:00 06/26/25 20:54 Medications Administered Normal sinus rhythm without acute changes (3) CAD (coronary artery disease) Associated angina: unspecified whether angina present Coronary Disease- Associated Artery/Lesion type: [place] artery [place] vs. transplanted heart: [place] heart Qualified Code(s): I25.10 - Atherosclerotic heart disease of [place] coronary artery without angina pectoris
--- NOTE | 2025-06-28 17:36 | Electrocardiogram Report ---
Test Reason : Blood Pressure : */* mmHG Vent. Rate : 68 BPM Atrial Rate : 68 BPM P-R Int : 206 ms QRS Dur : 138 ms QT Int : 516 ms P-R-T Axes : 66 99 57 degrees QTcB Int : 548 ms Normal sinus rhythm Rightward axis Right bundle branch block T wave abnormality, consider anterior ischemia Abnormal ECG When compared with ECG of 27-Jun-2025 02:56, Nonspecific T wave abnormality no longer evident in Inferior leads Confirmed by Moe Cullen ([id number]) on 06/28/2025 5:36:26 PM Referred By: REFERRED SELF Confirmed By: Moe Cullen
--- NOTE | 2025-06-28 18:06 | Billing Data ---
Date of Service June 28, 2025 Coding Level of Care Code 78503 IN/OBS DISCH 30 MIN/LESS
== END 2025-06-28 13:30 | disposition home or self-care (01) | DRG 287 ==
LOC: ED 17:19 → 2S 20:37 → SUATTDRO 20:37 → 2S 21:34